=== PATIENT | male | born 1940 | race Caucasian/White ===

== ENCOUNTER → 2019-01-16 | Outpatient (CLI) | payer MEDICARE, BC, OTHER ==
--- NOTE | 2019-01-16 14:31 | KCIC ---
EXAM: MRI left shoulder DATE: 01/16/2019 11:45 AM COMPARISON: None INDICATION: Left shoulder pain, left shoulder injury. TECHNIQUE: Multiplanar, multisequence MRI of the left shoulder was performed without contrast. FINDINGS: Mild AC joint degenerative changes are seen with inferior projecting osteophytes. Subacromial-subdeltoid bursal distention from full-thickness rotator cuff tear described below. There is a full-thickness tear of the anterior fibers of the supraspinatus tendon measuring approximately 1.4 cm in AP dimension with retraction to the level of the acromion. Mild increased signal of the posterior fibers of the supraspinatus tendon as well as the infraspinatus tendon consistent with mild tendinosis. Rotator cuff muscle signal and bulk is normal. No fatty atrophy. Increased signal on of the intra-articular long head biceps tendon consistent with tendinosis. The extra articular long head biceps tendon is severely diminutive with suspected full-thickness tear just proximal to the pectoralis attachment. Small inferior glenohumeral osteophytes. Chondral thinning, particularly superiorly. No fracture or AVN. IMPRESSION: 1. Full-thickness tear of the anterior fibers of the supraspinatus tendon 2. Increased signal within the intra-articular long head biceps tendon consistent with tendinosis. Visualized portion of the extra articular biceps tendon are diminutive with a suspected full-thickness tear just proximal to the pectoralis tendon attachment. 3. AC joint degenerative changes are seen. Electronically signed by: Niko Caro MD (01/16/2019 2:28 PM) [facility]-KCIC2
== END | disposition home or self-care (01) ==
LOC: KCIC MRI 11:04
PROVIDERS: ATTEND Family Medicine
DX: S49.92XA Unspecified injury of left shoulder and upper arm, initial encounter (principal); M75.102 Unspecified rotator cuff tear or rupture of left shoulder, not specified as traumatic; M19.012 Primary osteoarthritis, left shoulder; M25.712 Osteophyte, left shoulder; X58.XXXA Exposure to other specified factors, initial encounter; Y93.89 Activity, other specified; Y92.89 Other specified places as the place of occurrence of the external cause; Y99.8 Other external cause status
CPT/HCPCS: 73221

== ENCOUNTER 2019-09-10 05:00 | Inpatient (IN) | payer MEDICARE, BC, OTHER ==
[~2019-09-10] VITALS: Ht 162.6 cm; Wt 71.7 kg
[2019-09-10] VITALS (21 sets, daily range): BP systolic 102–180; BP diastolic 45–93
--- NOTE | 2019-09-10 05:30 | NUR ---
Patient admitted to room 106 via gurney from [facility] ICU, accompanied by EMSx2. On arrival patient on 100%Non-rebreather and once transferred to bed, O2 saturation 75%--per EMS patient's oxygen saturations maintained >92%. Patient was also tachypneic with RR mid-upper 30's. Patient does complain of shortness of breath with rest and activity and only able to speak in 2-3 word sentences. With rest, patient's saturation only increased to mid 80's without improvement of respiratory rate so patient placed on BiPap with settings of IPap 16, EPap 6, rate 16 and FiO2 60. Patient's saturation did improve to 94% but respiratory rate continued to be 30's. Patient does deny pain. Patient educated on ICU routine, Nursing call light, TV/Bed control, Numeric pain scale, side rail policy, diet (NPO), activity (BR), and POC. Patient verbalized understanding of above. Also discussed possibility of need for intubation/ventilation; patient is agreeable to be intubated if needed. Patient has Cardizem running at 15MG/HR and Amiodarone at 0.5MG/MIN for Afib RVE--tele Afib with rate 90's to 100's. See Admission information and Admission assessment.
--- NOTE | 2019-09-10 06:25 | NUR ---
Called Dr Griffin for admit orders, notified of need for BiPap and settings. Orders received to consult Dr Jacobs after am ABG's drawn, continue all meds from [facility] including Cardizem and Amio, NPO, BR, this am labs (CBC, CMP, Mg, ABG, DIC panel, and Lactic acid), CXR this am, and consult Dr Rivera. See orders.
[2019-09-10] MEDS ORDERED: NAPROXEN 500 MG TABLET PO PRN (06:30)
[2019-09-10] MEDS ORDERED: 0.9 % SODIUM CHLORIDE 10 ML DISP.SYRIN. IV PRN (07:00)
[2019-09-10] MEDS ORDERED: DUTA0.5C PO (07:42)
[2019-09-10] MEDS ORDERED: NAPR-514 PO (07:42)
[2019-09-10 08:07] LABS: BASO % 0 % (0-3); EOS % 0 % (0-3); HEMATOCRIT 33.9 % (39.0-53.0); LYMPH # 1.1 x10^3/uL (1.0-4.8); LYMPH % 6 % (24-48); MEAN CORPUSCULAR HEMOGLOBIN 23 pg (25-35); MEAN CORPUSCULAR HGB CONC 32 g/dL (31-37); MEAN CORPUSCULAR VOLUME 71 fL (79-100); MONO # 1.2 x10^3/uL (0.0-1.1); MONO % 6 % (0-9); NEUT # 16.8 x10^3/uL (1.8-7.7); NEUT % 88 % (31-73); PLATELET COUNT 252 x10^3/uL (140-400); RED BLOOD COUNT 4.79 x10^6/uL (4.30-5.70); RED CELL DISTRIBUTION WIDTH 15.5 % (11.5-14.5); WHITE BLOOD COUNT 19.1 x10^3/uL (4.0-11.0)
[2019-09-10 08:17] LABS: PROTHROMBIN TIME PATIENT 19.1 SEC (11.7-14.0)
--- NOTE | 2019-09-10 08:23 | RAD ---
PORTABLE CHEST 1V History: Increased respiratory failure Comparison: Exam earlier the same day Findings: Single view of the chest is submitted. Pericardial cardiac silhouette is again enlarged. There is again tortuous thoracic aorta. There is again suspected small right pleural effusion. There is fairly diffuse interstitial opacity bilaterally as well as degree of hazy airspace opacity fairly similar on the left, slightly decreased on the right. No pneumothorax is identified. Impression: 1. There is again diffuse interstitial and hazy airspace opacity bilaterally, slightly decreased of the mid right hemithorax, more similar on the left. There is again small right pleural effusion. 2. There is again enlargement of the pericardial cardiac silhouette. Electronically signed by: Jl Santizo MD (09/10/2019 8:20 AM) [facility]-KCIC1
[2019-09-10 08:34] LABS: D-DIMER 4.43 ug/mlFEU (0.00-0.50)
[2019-09-10] MEDS: methylPREDNISolone SOD SUCC PF 40 MG/ML VIAL. IV SCH ×3 (08:38→21:32)
[2019-09-10] MEDS: LACTOBACILLUS RHAMNOSUS GG 1 CAPSULE. PO SCH ×2 (08:38→20:41)
[2019-09-10 08:45] LABS: ALBUMIN 3.1 g/dL (3.4-5.0); ALBUMIN/GLOBULIN RATIO 0.7 (1.0-1.7); CALCIUM 8.6 mg/dL (8.5-10.1); CREATININE 1.3 mg/dL (0.7-1.3); GFR 53.4; POTASSIUM 3.9 mmol/L (3.5-5.1); TOTAL BILIRUBIN 1.4 mg/dL (0.2-1.0); TOTAL PROTEIN 7.8 g/dL (6.4-8.2)
--- NOTE | 2019-09-10 08:57 | NUR ---
Patient breathing 38-40 per minute over the bipap which is set at 16. Patient states that he is breathing so fast trying to keep up with the bipap. Explained that the bipap is only breathing 16 times a minute for him and instructed him to try to slow his breathing and allow the bipap to do the work. Asked patient if he would be acceptable of a breathing tube being used to help him breath if his arterial blood gases are abnormal and patient agrees to this if needed. Patient is diaphoretic, wet cloth applied to forehead.
[2019-09-10] MEDS ORDERED: AZITHROMYCIN 250 MG TABLET. PO SCH (09:00)
[2019-09-10] MEDS: DUTASTERIDE 0.5 MG CAPSULE PO SCH (09:00)
[2019-09-10 09:10] LABS: BASE EXCESS ABG -4 mmol/L (-3-3); HCO3 ABG 19 mmol/L (21-28); PCO2 ABG 28 mmHg (35-46); PO2 ABG 65 mmHg (65-108); SAT O2 ABG 91 % (92-99)
[2019-09-10 09:11] LABS: FIO2 ABG 60
--- NOTE | 2019-09-10 09:45 | HP ---
ADMIT DATE: 09/10/2019 HISTORY OF PRESENT ILLNESS: The patient is a 79-year-old male patient who is Bah[place], who was seen in the Emergency Room of [facility] [place] complaining of palpitations, heart rate was racing. He was investigated in the Emergency Room and apparently was found initially in atrial fibrillation with rapid ventricular response. He was cardioverted twice. Further investigation showed he has leukocytosis and chest x-ray showed that he has what seemed to be right lower lobe pneumonia and was admitted with community-acquired pneumonia as well as atrial fibrillation with rapid ventricular response, was treated with IV fluid as well as ceftriaxone and Zithromax, has had 2 sets of blood cultures as well as sputum culture was sent for culture and sensitivity. He continued to go into episodes of atrial fibrillation with rapid ventricular response and developed marked respiratory distress for which he has had CT angio of the chest, which showed no evidence of pulmonary embolism; however, he has small pleural effusion, right greater than left. He has diffuse hazy infiltrate throughout both lungs, most likely due to pneumonia and/or edema. He was treated with IV Lasix yesterday; however, he continued to be in fibrillation with rapid ventricular response. He was transferred to the ICU, was seen by Dr. Rivera and was started on amiodarone and Cardizem drip. Apparently last night, he developed recurrent episode of hemoptysis and he was desaturating down to mid 80s on even 4 liters by nasal cannula. As he continued to have recurrent episodes of hemoptysis, we held his Lovenox and the patient was placed on a face mask with humidification with an FiO2 of 60%. His blood gases showed that the pH was 7.46, pCO2 of 25, pO2 of 62, bicarbonate of 18 and oxygen saturation was 93% on FiO2 of 80%; and therefore, the patient was transferred to [facility] to continue on BiPAP machine, continue to consult the metal ceiling builder as well as the rebar worker. PAST MEDICAL HISTORY: Significant for rheumatoid arthritis. He has also gout and benign prostatic hypertrophy. PAST SURGICAL HISTORY: Significant for bilateral cataract extraction and appendectomy. ALLERGIES: He has no known drug allergies. MEDICATIONS: He was on following home medications: He was on Avodart 0.5 mg once a day, naproxen 500 mg twice a day. He has also multiple [id number] medications including multivitamin, fish oil and vitamin D. He was transferred to [facility] on amiodarone and Cardizem drip. He was also started on IV antibiotic in the form of ceftriaxone and Zithromax for treatment of community-acquired pneumonia. He was also started on Lovenox 80 mg twice a day as well as methylprednisone 40 mg IV q. 8 hourly. FAMILY HISTORY: He has 2 brothers who are healthy, one older and one younger. One brother at age of 83 because of COPD, has 6 sisters, all younger and all healthy. His father at the age of 90 because of sepsis and mother also giving to his younger brother. SOCIAL HISTORY: He is , has 3 sons, one because of bone cancer. He quit smoking in 1991. He drinks alcohol once a week after he plays golf. Uses CBD for his arthritis, although he said that so far it did not seem to be helpful. REVIEW OF SYSTEMS: The patient denied any blurring of vision. He did have bilateral cataract extraction, but denied any glaucoma or macular degeneration. Denied any earache, tinnitus associated deafness. Denied any nosebleeds, stuffy nose or postnasal drip. Denied any sore throat, sore tongue, toothache, hoarseness of voice or difficulty swallowing. Denied any nausea, vomiting, diarrhea or constipation. Denied any hematemesis, melena or hematochezia. Denied any dysuria, frequency, hematuria. Denied any chest pain. Did complain of shortness of breath, cough with hemoptysis. When he arrived to the [facility], he continued to be extremely tachypneic, on BiPAP machine on FiO2 of 60%, maintaining his oxygen saturation of 93%. PHYSICAL EXAMINATION: VITAL SIGNS: When I examined him, his heart rate was 95 beats per minute, irregularly irregular; blood pressure was 167/83; temperature was 98; respiratory rate was 38 and oxygen saturation was 93% on FiO2 of 60%. HEAD, EYES, EARS, NOSE AND THROAT: Showed normocephalic, atraumatic. NECK: Supple. HEART: Showed normal first and second heart sounds with no murmur. CHEST: Showed central trachea. Equal bilateral expansion, air entry, vesicular sounds with crepitation mostly on the right side. ABDOMEN: Distended, soft, nontender. No guarding or rigidity. No organomegaly. All hernial orifice intact. Bowel sounds normal. NEUROLOGIC: He is awake, alert, responding appropriately. All cranial nerves intact. EXTREMITIES: He moves extremities without difficulty. LABORATORY DATA: On arrival to [facility], continues to have marked leukocytosis with a white cell count of 19,100, hemoglobin 11, hematocrit 33, MCV 71, platelet count 252,000. His chemistry showed a serum sodium 134, potassium 3.9, chloride 99, bicarbonate 22, anion gap of 13, BUN 28, creatinine 1.3, estimated GFR was 53 mL per minute. His glucose was 128, calcium was 8.6. Total bilirubin slightly elevated at 1.4. AST, ALT markedly elevated. Alkaline phosphatase was normal. His total protein was 7.8, albumin was 3.1. His prothrombin time, INR and aPTT were normal. His fibrinogen was high at 699 and D-dimer was 4.43. His chest x-ray again showed that the pericardial cardiac silhouette is again enlarged. There is again tortuous thoracic aorta. There is again suspected small right-sided pleural effusion. There is fairly diffuse interstitial opacity bilaterally as well as degree of hazy airspace opacity fairly similar to the left, slightly decreased on the right, no pneumothorax identified. ASSESSMENT AND PLAN: In summary, this is a 79-year-old male patient who was originally seen in the Emergency Room with palpitation, was found to be in atrial fibrillation with rapid ventricular response. He was converted twice after he was sedated with fentanyl as well as etomidate and the patient was initially converted to sinus rhythm. He was treated for community-acquired pneumonia with IV Rocephin and Zithromax, unfortunately continued to have episodes of atrial fibrillation with rapid ventricular response during which he becomes in very marked respiratory distress. We did a CT angio of the chest yesterday, which showed no evidence of pulmonary emboli. He was treated with IV Lasix and was started on Cardizem drip as well as amiodarone drip. He developed recurrent episode of hemoptysis last night, coughing up large amount of blood, such that we discontinued his Lovenox and he was transferred to [facility] to continue on BiPAP machine, continue to monitor, consult the rebar worker as well as the metal ceiling builder. We will continue with the Cardizem and amiodarone drip. Continue with the IV antibiotic as well as the inhalers and Solu-Medrol. INGRIS FINCH MD DR: JOSIANE/jose JOB#: [id number] / [id number]
[2019-09-10] MEDS: AMIODARONE 450 MG in IV DEXTROSE 5% 250 ML IV PRN (09:52)
[2019-09-10] MEDS ORDERED: BISACODYL 10 MG SUPP.RECT. PR PRN (10:00)
[2019-09-10] MEDS: ALBUTEROL SULFATE 2.5 MG/3 ML NEBU. NEB SCH ×4 (10:03→19:37)
--- NOTE | 2019-09-10 11:00 | NUR ---
Respirations 42, patient diaphoretic. Non-rebreather mask pulse ox 78%.
[2019-09-10 11:10] LABS: % BANDS 13 % (0-9); % LYMPHS 6 % (24-48); % MONOS 3 % (0-10); % SEGS 78 % (35-66); NUCLEATED RBC 6; PLT ESTIMATE ADEQUATE (ADEQUATE)
[2019-09-10 11:11] LABS: MICROCYTOSIS SLIGHT; POIKILOCYTOSIS SLIGHT; POLYCHROMASIA MOD; SPHEROCYTES FEW; TARGET CELLS FEW
[2019-09-10 11:12] LABS: OVALOCYTES FEW; SCHISTOCYTES FEW; TEAR DROP CELLS OCC
[2019-09-10 11:13] LABS: ANISOCYTOSIS MOD
--- NOTE | 2019-09-10 11:33 | NUR ---
Patient back on bipap but still increased respirations (48) and diaphoretic. Lungs coarse crackles throughout. Non-productive cough. Pulse ox currently 89%.
[2019-09-10] MEDS ORDERED: MORPHINE SULFATE 10 MG/ML VIAL. IV ONE (12:00)
[2019-09-10] MEDS ORDERED: cefTRIAXone IV Push 1 GM VIAL. IVP SCH (12:00)
--- NOTE | 2019-09-10 12:16 | NUR ---
SS following for discharge planning. SS reviewed pt chart. Pt is from home with spouse and is currently on the BIPAP. SS will continue to follow for discharge planning.
[2019-09-10] MEDS ORDERED: MORPHINE SULFATE 4 MG/ML VIAL. IV ONE (13:00)
--- NOTE | 2019-09-10 13:19 | PDOC ---
PULMONARY PROGRESS NOTES Vitals Vital Signs Date Time Temp Pulse Resp B/P (MAP) Pulse Ox O2 Delivery O2 Flow Rate FiO2 09/10/19 12:56 36 93 BiPAP/CPAP 09/10/19 11:00 114 154/88 (110) 09/10/19 10:00 15.0 09/10/19 08:00 98.0 98.0 Labs Laboratory Tests Test 09/10/19 08:00 09/10/19 08:50 09/10/19 11:25 White Blood Count 19.1 x10^3/uL (4.0-11.0) Red Blood Count 4.79 x10^6/uL (4.30-5.70) Hemoglobin 11.0 g/dL (13.0-17.5) Hematocrit 33.9 % (39.0-53.0) Mean Corpuscular Volume 71 fL (79-100) Mean Corpuscular Hemoglobin 23 pg (25-35) Mean Corpuscular Hemoglobin Concent 32 g/dL (31-37) Red Cell Distribution Width 15.5 % (11.5-14.5) Platelet Count 252 x10^3/uL (140-400) Neutrophils (%) (Auto) 88 % (31-73) Lymphocytes (%) (Auto) 6 % (24-48) Monocytes (%) (Auto) 6 % (0-9) Eosinophils (%) (Auto) 0 % (0-3) Basophils (%) (Auto) 0 % (0-3) Neutrophils # (Auto) 16.8 x10^3/uL (1.8-7.7) Lymphocytes # (Auto) 1.1 x10^3/uL (1.0-4.8) Monocytes # (Auto) 1.2 x10^3/uL (0.0-1.1) Eosinophils # (Auto) 0.0 x10^3/uL (0.0-0.7) Basophils # (Auto) 0.0 x10^3/uL (0.0-0.2) Segmented Neutrophils % 78 % (35-66) Band Neutrophils % 13 % (0-9) Lymphocytes % 6 % (24-48) Monocytes % 3 % (0-10) Nucleated Red Blood Cells 6 Platelet Estimate Adequate (ADEQUATE) Polychromasia Mod Poikilocytosis Slight Anisocytosis Mod Microcytosis Slight Spherocytes Few Target Cells Few Tear Drop Cells Occ Ovalocytes Few Schistocytes Few Prothrombin Time 19.1 SEC (11.7-14.0) Prothromb Time International Ratio 1.6 (0.8-1.1) Activated Partial Thromboplast Time 37 SEC (24-38) Fibrinogen 699 mg/dL (200-440) D-Dimer (Kathia) 4.43 ug/mlFEU (0.00-0.50) Sodium Level 134 mmol/L (136-145) Potassium Level 3.9 mmol/L (3.5-5.1) Chloride Level 99 mmol/L (98-107) Carbon Dioxide Level 22 mmol/L (21-32) Anion Gap 13 (6-14) Blood Urea Nitrogen 28 mg/dL (8-26) Creatinine 1.3 mg/dL (0.7-1.3) Estimated GFR (Cockcroft-Gault) 53.4 BUN/Creatinine Ratio 22 (6-20) Glucose Level 228 mg/dL (70-99) Lactic Acid Level 4.4 mmol/L (0.4-2.0) 7.8 mmol/L (0.4-2.0) Calcium Level 8.6 mg/dL (8.5-10.1) Total Bilirubin 1.4 mg/dL (0.2-1.0) Aspartate Amino Transf (AST/SGOT) 1296 U/L (15-37) Alanine Aminotransferase (ALT/SGPT) 930 U/L (16-63) Alkaline Phosphatase 92 U/L (46-116) Total Protein 7.8 g/dL (6.4-8.2) Albumin 3.1 g/dL (3.4-5.0) Albumin/Globulin Ratio 0.7 (1.0-1.7) O2 Saturation 91 % (92-99) Arterial Blood pH 7.45 (7.35-7.45) Arterial Blood pCO2 at Patient Temp 28 mmHg (35-46) Arterial Blood pO2 at Patient Temp 65 mmHg (65-108) Arterial Blood HCO3 19 mmol/L (21-28) Arterial Blood Base Excess -4 mmol/L (-3-3) FiO2 60 Laboratory Tests Test 09/10/19 08:00 09/10/19 08:50 09/10/19 11:25 White Blood Count 19.1 x10^3/uL (4.0-11.0) Red Blood Count 4.79 x10^6/uL (4.30-5.70) Hemoglobin 11.0 g/dL (13.0-17.5) Hematocrit 33.9 % (39.0-53.0) Mean Corpuscular Volume 71 fL (79-100) Mean Corpuscular Hemoglobin 23 pg (25-35) Mean Corpuscular Hemoglobin Concent 32 g/dL (31-37) Red Cell Distribution Width 15.5 % (11.5-14.5) Platelet Count 252 x10^3/uL (140-400) Neutrophils (%) (Auto) 88 % (31-73) Lymphocytes (%) (Auto) 6 % (24-48) Monocytes (%) (Auto) 6 % (0-9) Eosinophils (%) (Auto) 0 % (0-3) Basophils (%) (Auto) 0 % (0-3) Neutrophils # (Auto) 16.8 x10^3/uL (1.8-7.7) Lymphocytes # (Auto) 1.1 x10^3/uL (1.0-4.8) Monocytes # (Auto) 1.2 x10^3/uL (0.0-1.1) Eosinophils # (Auto) 0.0 x10^3/uL (0.0-0.7) Basophils # (Auto) 0.0 x10^3/uL (0.0-0.2) Segmented Neutrophils % 78 % (35-66) Band Neutrophils % 13 % (0-9) Lymphocytes % 6 % (24-48) Monocytes % 3 % (0-10) Nucleated Red Blood Cells 6 Platelet Estimate Adequate (ADEQUATE) Polychromasia Mod Poikilocytosis Slight Anisocytosis Mod Microcytosis Slight Spherocytes Few Target Cells Few Tear Drop Cells Occ Ovalocytes Few Schistocytes Few Prothrombin Time 19.1 SEC (11.7-14.0) Prothromb Time International Ratio 1.6 (0.8-1.1) Activated Partial Thromboplast Time 37 SEC (24-38) Fibrinogen 699 mg/dL (200-440) D-Dimer (Kathia) 4.43 ug/mlFEU (0.00-0.50) Sodium Level 134 mmol/L (136-145) Potassium Level 3.9 mmol/L (3.5-5.1) Chloride Level 99 mmol/L (98-107) Carbon Dioxide Level 22 mmol/L (21-32) Anion Gap 13 (6-14) Blood Urea Nitrogen 28 mg/dL (8-26) Creatinine 1.3 mg/dL (0.7-1.3) Estimated GFR (Cockcroft-Gault) 53.4 BUN/Creatinine Ratio 22 (6-20) Glucose Level 228 mg/dL (70-99) Lactic Acid Level 4.4 mmol/L (0.4-2.0) 7.8 mmol/L (0.4-2.0) Calcium Level 8.6 mg/dL (8.5-10.1) Total Bilirubin 1.4 mg/dL (0.2-1.0) Aspartate Amino Transf (AST/SGOT) 1296 U/L (15-37) Alanine Aminotransferase (ALT/SGPT) 930 U/L (16-63) Alkaline Phosphatase 92 U/L (46-116) Total Protein 7.8 g/dL (6.4-8.2) Albumin 3.1 g/dL (3.4-5.0) Albumin/Globulin Ratio 0.7 (1.0-1.7) O2 Saturation 91 % (92-99) Arterial Blood pH 7.45 (7.35-7.45) Arterial Blood pCO2 at Patient Temp 28 mmHg (35-46) Arterial Blood pO2 at Patient Temp 65 mmHg (65-108) Arterial Blood HCO3 19 mmol/L (21-28) Arterial Blood Base Excess -4 mmol/L (-3-3) FiO2 60 Medications Active Scripts Medications Dose Route/Sig Max Daily Dose Days Date Category Naproxen 500 Mg Tablet 1 Tab PO PRN BID PRN 30 09/10/19 Reported Avodart (Dutasteride) 0.5 Mg Capsule 1 Cap PO DAILY 09/10/19 Reported Impression . NOTE DICTATED ACUTE RESP FAILURE SEC TO SEPSIS POSSIBLE PULM EDEMA SEE ORDERS THANKS VIRGEN ROME MD Sep 10, 2019 13:19
[2019-09-10] MEDS ORDERED: VANCOMYCIN 1 GM in IV NORMAL SALINE 250ML 250 ML IV SCH (13:30)
[2019-09-10] MEDS: PIPERACILLIN/TAZOBACTAM 3.375 GM in IV NORMAL SALINE 50ML 50 ML IV SCH ×3 (13:55→23:50)
[2019-09-10] MEDS ORDERED: VANCOMYCIN 1.5 GM in IV NORMAL SALINE 500ML BAG 500 ML IV ONE (14:00)
[2019-09-10] MEDS ORDERED: VANCOMYCIN PER PHARMACY MC PRN (14:00)
[2019-09-10 14:15] LABS: BASE EXCESS ABG -7 mmol/L (-3-3); HCO3 ABG 18 mmol/L (21-28); PCO2 ABG 33 mmHg (35-46); PO2 ABG 74 mmHg (65-108); SAT O2 ABG 92 % (92-99)
[2019-09-10 14:16] LABS: FIO2 ABG 60
--- NOTE | 2019-09-10 14:53 | PDOC ---
YIN HASKINS RECREATIONAL FACILITIES MOTEL MANAGER 09/10/19 1453: CARDIO Progress Notes Date and Time Date of Service 09/10/19 Time of Evaluation 1410 Subjective Subjective: Other (on BiPAP) Vitals Vitals Vital Signs Date Time Temp Pulse Resp B/P (MAP) Pulse Ox O2 Delivery O2 Flow Rate FiO2 09/10/19 14:02 105 30 118/78 (91) 94 BiPAP/CPAP 09/10/19 12:00 97.6 97.6 09/10/19 10:00 15.0 Weight Weight [ ] Input and Output Intake and Output Intake and Output 09/10/19 07:00 Intake Total 0 ml Output Total 0 ml Balance 0 ml Intake Oral 0 ml Output Stool Total 0 ml Laboratory Labs Laboratory Tests Test 09/10/19 08:00 09/10/19 08:50 09/10/19 11:25 09/10/19 14:10 White Blood Count 19.1 x10^3/uL (4.0-11.0) Red Blood Count 4.79 x10^6/uL (4.30-5.70) Hemoglobin 11.0 g/dL (13.0-17.5) Hematocrit 33.9 % (39.0-53.0) Mean Corpuscular Volume 71 fL (79-100) Mean Corpuscular Hemoglobin 23 pg (25-35) Mean Corpuscular Hemoglobin Concent 32 g/dL (31-37) Red Cell Distribution Width 15.5 % (11.5-14.5) Platelet Count 252 x10^3/uL (140-400) Neutrophils (%) (Auto) 88 % (31-73) Lymphocytes (%) (Auto) 6 % (24-48) Monocytes (%) (Auto) 6 % (0-9) Eosinophils (%) (Auto) 0 % (0-3) Basophils (%) (Auto) 0 % (0-3) Neutrophils # (Auto) 16.8 x10^3/uL (1.8-7.7) Lymphocytes # (Auto) 1.1 x10^3/uL (1.0-4.8) Monocytes # (Auto) 1.2 x10^3/uL (0.0-1.1) Eosinophils # (Auto) 0.0 x10^3/uL (0.0-0.7) Basophils # (Auto) 0.0 x10^3/uL (0.0-0.2) Segmented Neutrophils % 78 % (35-66) Band Neutrophils % 13 % (0-9) Lymphocytes % 6 % (24-48) Monocytes % 3 % (0-10) Nucleated Red Blood Cells 6 Platelet Estimate Adequate (ADEQUATE) Polychromasia Mod Poikilocytosis Slight Anisocytosis Mod Microcytosis Slight Spherocytes Few Target Cells Few Tear Drop Cells Occ Ovalocytes Few Schistocytes Few Prothrombin Time 19.1 SEC (11.7-14.0) Prothromb Time International Ratio 1.6 (0.8-1.1) Activated Partial Thromboplast Time 37 SEC (24-38) Fibrinogen 699 mg/dL (200-440) D-Dimer (Kathia) 4.43 ug/mlFEU (0.00-0.50) Sodium Level 134 mmol/L (136-145) Potassium Level 3.9 mmol/L (3.5-5.1) Chloride Level 99 mmol/L (98-107) Carbon Dioxide Level 22 mmol/L (21-32) Anion Gap 13 (6-14) Blood Urea Nitrogen 28 mg/dL (8-26) Creatinine 1.3 mg/dL (0.7-1.3) Estimated GFR (Cockcroft-Gault) 53.4 BUN/Creatinine Ratio 22 (6-20) Glucose Level 228 mg/dL (70-99) Lactic Acid Level 4.4 mmol/L (0.4-2.0) 7.8 mmol/L (0.4-2.0) Calcium Level 8.6 mg/dL (8.5-10.1) Total Bilirubin 1.4 mg/dL (0.2-1.0) Aspartate Amino Transf (AST/SGOT) 1296 U/L (15-37) Alanine Aminotransferase (ALT/SGPT) 930 U/L (16-63) Alkaline Phosphatase 92 U/L (46-116) Total Protein 7.8 g/dL (6.4-8.2) Albumin 3.1 g/dL (3.4-5.0) Albumin/Globulin Ratio 0.7 (1.0-1.7) O2 Saturation 91 % (92-99) 92 % (92-99) Arterial Blood pH 7.45 (7.35-7.45) 7.35 (7.35-7.45) Arterial Blood pCO2 at Patient Temp 28 mmHg (35-46) 33 mmHg (35-46) Arterial Blood pO2 at Patient Temp 65 mmHg (65-108) 74 mmHg (65-108) Arterial Blood HCO3 19 mmol/L (21-28) 18 mmol/L (21-28) Arterial Blood Base Excess -4 mmol/L (-3-3) -7 mmol/L (-3-3) FiO2 60 60 Physical Exam HEENT: Neck Supple W Full Motion Chest: Symmetric LUNGS: Other (rhonchi throughout ) Heart: irregularly irregular (AFIB rate near 100-115) Abdomen: Other (soft ) Extremities: Other (2+ right hand and 1+ bilateral LE edema ) Neurology: other (unable to assess, somnolent following Ativan, morphine ) Assessment Assessment 1. Acute respiratory failure, multifactorial given CAP, possible ILD, acute CHF and AFIB with RVR. Requiring continuous BiPAP 2. AFIB with RVR in setting of PNA, sepsis. rate overall controlled with Amiodarone and Cardizem now that respiratory rate more controlled following Ativan, morphine. Lovenox discontinued due to hemoptysis. 3. Leukocytosis, lactic acidosis, sepsis 4. Acute diastolic CHF; bedside limited echo at [facility] with preserved LV systolic function Recommendations Continue Cardizem and Amiodarone gtts for now Ongoing antibiotic therapy Supportive care May need intubation ALEX SMILEY MD 09/11/19 0908: CARDIO Progress Notes Plan Plan Late entry for 09/10/2019 Pt. seen and examined. Agree with above COST ACCOUNTING ANALYST note. Supportive care for now. Lower suspicion for primary cardiac process. Gentle diuresis as tolerated in the setting of sepsis and diastolic HF. YIN HASKINS APRN Sep 10, 2019 14:53 ALEX SMILEY MD Sep 11, 2019 09:08
--- NOTE | 2019-09-10 15:00 | CONS ---
DATE OF CONSULTATION: 09/10/2019 ATTENDING PHYSICIAN: Michael Griffin MD CONSULTING PHYSICIAN: Virgen Rome MD REASON FOR CONSULTATION: The patient is seen in pulmonary consultation at the request of Dr. Griffin for respiratory distress, abnormal chest x-ray, arterial blood gas revealing a pH of 7.45, PaCO2 of 28, pO2 of 65, bicarbonate of 19. HISTORY OF PRESENT ILLNESS: The patient is a 79-year-old that was in his usual state of health until he came back from vacation. According to his , he has never been hospitalized for major pathology. They visited some families. They came back and he had a cold. He subsequently deteriorated to started having some increasing shortness of breath. He was brought to the Emergency Room complaining of palpitation and heart racing was investigated found to have AFib with rapid ventricular response. He was cardioverted x 2. He also had leukocytosis. Chest x-ray revealed bilateral infiltrate, right greater than left. He was treated for community-acquired pneumonia. He was also treated with ceftriaxone and Zithromax. I personally reviewed the CT chest dated 09/08/[address] [facility]. There were several findings including diffuse AC infiltrates throughout both lungs, right greater than left. To me it gives me the impression that he may have some underlying interstitial lung disease, possible pulmonary fibrosis, the small bilateral effusions, right greater than left. There was no evidence of pulmonary emboli. The patient is currently on BiPAP. His respiratory rate is markedly elevated. I discontinue the BiPAP, his saturation decreased. He was unable to provide any significant history. He was given IV morphine and some IV Ativan with no significant help in with minimal decrease in respiratory rate. PAST MEDICAL HISTORY: Remarkable for rheumatoid arthritis. According to his , it only affects his hands. He also has a history of gout and BPH. He quit tobacco 30 years ago. He has never had any heart condition. PAST SURGICAL HISTORY: Bilateral cataract extraction. ALLERGIES: No known drug allergies. CURRENT MEDICATIONS: List was reviewed. MEDICATIONS: List from home included Naprosyn and Avodart. REVIEW OF SYSTEMS: Unobtainable secondary to the patient's condition. PHYSICAL EXAMINATION: VITAL SIGNS: Temperature is 98.0, blood pressure is 154/88. HEENT: Eyes, the sclerae were nonicteric. NECK: Jugular venous distention was not elevated. No lymphadenopathy. CHEST: Full expansion. LUNGS: Bilateral rhonchi, no wheezes. CARDIOVASCULAR: Regular rate and rhythm with S1, S2, no S3. ABDOMEN: Soft, nontender, nondistended. EXTREMITIES: No clubbing, cyanosis or edema. NEUROLOGIC: The patient was encephalopathic on BiPAP. LABORATORY DATA: White count was elevated. Hemoglobin and hematocrit were noted, platelet count was 252. Arterial blood gases indicated above. INR was 1.6. D-dimer was elevated. Electrolytes were noted. BUN and creatinine were noted. His lactic acid level cheyanne from 4.4 to 7.8. IMPRESSION: 1. Acute hypoxemic respiratory failure. 2. Sepsis syndrome. 3. Abnormal CT chest revealing bilateral pulmonary infiltrates. 4. Pneumonia, suspect gram-negative, gram-positive. 5. Possible acute pulmonary edema. 6. Possible interstitial lung disease/pulmonary fibrosis. 7. History of rheumatoid arthritis. 8. Atrial fibrillation with rapid ventricular response. PLAN: 1. We will continue support with BiPAP and provide sedation. 2. Elevated lactic acid level was related to sepsis and increased work of breathing. We will repeat. 3. IV fluids. 4. Consult Cardiology already performed. 5. Consult ID. 6. Continue empiric antibiotics, make changes depending on the input from the Infectious Disease service. 7. Monitor respiratory status closely, the patient may require intubation. The above was discussed with the at the bedside. Total critical care time of 60 minutes including reviewing the data chest x-ray formulating a plan and discussing the case with Dr. Griffin and at the bedside. VIRGEN ROME MD DR: DUONG/jose JOB#: [id number] / [id number]
[2019-09-10] MEDS ORDERED: FUROSEMIDE 20 MG/2 ML VIAL. IVP ONE (15:45)
[2019-09-10] MEDS ORDERED: FUROSEMIDE 40 MG/4 ML VIAL. IVP ONE (15:45)
[2019-09-10] MEDS ORDERED: LIDOCAINE 4% KIT 4 ML SOLUTION. TP ONE (16:00)
--- NOTE | 2019-09-10 16:55 | NUR ---
Pharmacy Vancomycin Dosing Note S:Consulted to monitor and dose vancomycin started 09/10/19. O:PAULINA YU is a 79 year old M with Sepsis . Height: 5 feet, 4 inches Weight: 73.690719 kg [place] Body Weight: 59.20 Adjusted Body Weight: 64.72 Dosing Weight: Actual Other Antibiotics: ZOSYN 09/10 - LABS: Last BUN: 28 Last Creatinine: 1.3 Creatinine Clearance: 48 mL/min Last WBC: 19.1 Last Procalcitonin: - Tmax (past 24 hours): 98.1 Microbiology: NONE I/O: - Drug Levels: Last level: on at Last dose given 09/10/19 at 1630 Vancomycin Dosing: Loading Dose: 1500 mg x1 Dosing Weight: Actual Target Trough: 15-20 A: Based on: WEIGHT, CRCL~48, P: 1. Initiate Vancomycin 1000 mg IV q24h after 1500 mg loading dose 2. Follow up Trough level on 09/12/19 at 1600 3. Pharmacy will continue to monitor, follow and adjust therapy as needed. DEBORAH LIMA Bailey, 09/10/19 [id number]
[2019-09-10] MEDS: dilTIAZem INJ 125 MG in IV DEXTROSE 5% 100ML 100 ML IV PRN (20:58)
[2019-09-10] MEDS: MORPHINE SULFATE 4 MG/ML VIAL. IV PRN (21:22)
--- NOTE | 2019-09-10 21:30 | NUR ---
Patient became very restless around 2100. Patient respiration rate increased into the 50s and saturation dropped to the 80s. Patient was calmed after being re-oriented to his surroundings. Respiration rate remained in 40s. This RN called Dr. Jacobs and received order to 4mg morphine Q2 PRN. This RN administered does of morphine, patient returned to RR of 20s and saturation in low 90s. Will continue to monitor this patient and give this PRN dose and indicated.
[2019-09-11] VITALS (40 sets, daily range): BP systolic 66–125; BP diastolic 42–75
[2019-09-11] MEDS: AMIODARONE 450 MG in IV DEXTROSE 5% 250 ML IV PRN (02:33)
[2019-09-11] MEDS: MORPHINE SULFATE 4 MG/ML VIAL. IV PRN ×2 (04:33→20:31)
[2019-09-11] MEDS: dilTIAZem INJ 125 MG in IV DEXTROSE 5% 100ML 100 ML IV PRN ×2 (05:20→05:40)
[2019-09-11] MEDS: PIPERACILLIN/TAZOBACTAM 3.375 GM in IV NORMAL SALINE 50ML 50 ML IV SCH ×3 (05:39→21:35)
[2019-09-11] MEDS: methylPREDNISolone SOD SUCC PF 40 MG/ML VIAL. IV SCH ×3 (05:39→21:35)
[2019-09-11 06:40] LABS: ALBUMIN 3.2 g/dL (3.4-5.0); ALBUMIN/GLOBULIN RATIO 0.8 (1.0-1.7); CALCIUM 8.7 mg/dL (8.5-10.1); CREATININE 3.1 mg/dL (0.7-1.3); GFR 19.6; TOTAL BILIRUBIN 2.4 mg/dL (0.2-1.0); TOTAL PROTEIN 7.2 g/dL (6.4-8.2)
[2019-09-11 06:55] LABS: POTASSIUM 5.4 mmol/L (3.5-5.1)
[2019-09-11 07:12] LABS: HEMATOCRIT 34.8 % (39.0-53.0); HEMOGLOBIN 10.8 g/dL (13.0-17.5); RED BLOOD COUNT 4.79 x10^6/uL (4.30-5.70); RED CELL DISTRIBUTION WIDTH 15.9 % (11.5-14.5); WHITE BLOOD COUNT 32.3 x10^3/uL (4.0-11.0)
[2019-09-11] MEDS: ALBUTEROL SULFATE 2.5 MG/3 ML NEBU. NEB SCH ×4 (07:37→19:45)
[2019-09-11 07:53] LABS: BASE EXCESS ABG -14 mmol/L (-3-3); HCO3 ABG 12 mmol/L (21-28); PCO2 ABG 28 mmHg (35-46); PO2 ABG 82 mmHg (65-108); SAT O2 ABG 93 % (92-99)
--- NOTE | 2019-09-11 08:05 | PDOC ---
Infectious Disease Note Vital Sign Vital Signs Vital Signs Date Time Temp Pulse Resp B/P (MAP) Pulse Ox O2 Delivery O2 Flow Rate FiO2 09/11/19 07:37 93 BiPAP/CPAP 09/11/19 06:00 87 28 102/63 (76) 09/11/19 04:03 97.0 97.0 09/11/19 04:00 15.0 Labs Lab Laboratory Tests Test 09/10/19 08:50 09/10/19 11:25 09/10/19 14:10 09/11/19 05:15 O2 Saturation 91 % (92-99) 92 % (92-99) Arterial Blood pH 7.45 (7.35-7.45) 7.35 (7.35-7.45) Arterial Blood pCO2 at Patient Temp 28 mmHg (35-46) 33 mmHg (35-46) Arterial Blood pO2 at Patient Temp 65 mmHg (65-108) 74 mmHg (65-108) Arterial Blood HCO3 19 mmol/L (21-28) 18 mmol/L (21-28) Arterial Blood Base Excess -4 mmol/L (-3-3) -7 mmol/L (-3-3) FiO2 60 60 Lactic Acid Level 7.8 mmol/L (0.4-2.0) Sodium Level 136 mmol/L (136-145) Potassium Level 5.4 mmol/L (3.5-5.1) Chloride Level 98 mmol/L (98-107) Carbon Dioxide Level 14 mmol/L (21-32) Anion Gap 24 (6-14) Blood Urea Nitrogen 58 mg/dL (8-26) Creatinine 3.1 mg/dL (0.7-1.3) Estimated GFR (Cockcroft-Gault) 19.6 BUN/Creatinine Ratio 19 (6-20) Glucose Level 212 mg/dL (70-99) Calcium Level 8.7 mg/dL (8.5-10.1) Total Bilirubin 2.4 mg/dL (0.2-1.0) Aspartate Amino Transf (AST/SGOT) 2970 U/L (15-37) Alanine Aminotransferase (ALT/SGPT) 2225 U/L (16-63) Alkaline Phosphatase 111 U/L (46-116) Total Protein 7.2 g/dL (6.4-8.2) Albumin 3.2 g/dL (3.4-5.0) Albumin/Globulin Ratio 0.8 (1.0-1.7) Test 09/11/19 07:00 White Blood Count 32.3 x10^3/uL (4.0-11.0) Red Blood Count 4.79 x10^6/uL (4.30-5.70) Hemoglobin 10.8 g/dL (13.0-17.5) Hematocrit 34.8 % (39.0-53.0) Mean Corpuscular Volume 73 fL (79-100) Mean Corpuscular Hemoglobin 23 pg (25-35) Mean Corpuscular Hemoglobin Concent 31 g/dL (31-37) Red Cell Distribution Width 15.9 % (11.5-14.5) Platelet Count 172 x10^3/uL (140-400) Objective Assessment pt seen, consult dictated Plan Plan of Care / VICKI GAN MD Sep 11, 2019 08:05
[2019-09-11] MEDS ORDERED: SUCCINYLCHOLINE 200 MG/10 ML VIAL. ONE ×2 (08:09→10:57)
[2019-09-11] MEDS ORDERED: PROPOFOL 100 ML IV ONE (08:09)
[2019-09-11 08:28] LABS: FIO2 ABG 40
--- NOTE | 2019-09-11 08:40 | RAD ---
EXAM: CHEST 1 VIEW History: Respiratory failure COMPARISON: 09/10/2019 TECHNIQUE: Single portable radiograph of the chest FINDINGS: Mild cardiomegaly. There is diffuse prominent appearing bilateral interstitial lung markings likely diffuse interstitial infiltrates or edema mildly increased since prior exam. IMPRESSION: Diffuse prominent appearing bilateral interstitial lung markings likely diffuse interstitial infiltrates or edema mildly increased since prior exam. Electronically signed by: Patrick Jovel MD (09/11/2019 8:37 AM) [id number]
[2019-09-11] MEDS ORDERED: FUROSEMIDE 40 MG/4 ML VIAL. IVP SCH (09:00)
[2019-09-11] MEDS ORDERED: FLU VAX QS 2019-20 (36MOS+)/PF 0.5 ML SYRINGE. VAX IM ONE (09:00)
[2019-09-11 10:04] LABS: BASE EXCESS ABG -19 mmol/L (-3-3); HCO3 ABG 12 mmol/L (21-28); PCO2 ABG 50 mmHg (35-46); PO2 ABG 74 mmHg (65-108); SAT O2 ABG 82 % (92-99)
[2019-09-11] MEDS ORDERED: PROPOFOL 100 ML IV PRN (10:15)
--- NOTE | 2019-09-11 10:45 | RAD ---
Examination: Single frontal view the chest HISTORY: History of intubation COMPARISON: Same day exam Findings/ impression: The ET tube is identified in the trachea above the level of the clavicles. The feeding tube is seen below the left hemidiaphragm likely within the stomach. The internal jugular line is identified with the tip projecting in the region of the right atrium. Diffuse prominent appearing bilateral interstitial lung markings likely diffuse interstitial infiltrates or edema similar to prior exam. Electronically signed by: Patrick Jovel MD (09/11/2019 10:42 AM) [id number]
[2019-09-11] MEDS ORDERED: SODIUM BICARB ADULT 8.4% 50 MEQ/50 ML DISP.SYRIN. ONE (10:49)
--- NOTE | 2019-09-11 10:49 | RAD ---
Examination: Single frontal view of the abdomen HISTORY: History of NG tube placement COMPARISON: None available Findings/ impression: The feeding tube is seen below the left hemidiaphragm likely within the fundus the stomach. The bowel gas pattern appears unremarkable. Electronically signed by: Patrick Jovel MD (09/11/2019 10:46 AM) [id number]
--- NOTE | 2019-09-11 10:53 | PDOC ---
PULMONARY PROGRESS NOTES Subjective PT ON BIPAP NON RESPONSIVE TO VERBAL STIMULI Vitals Vital Signs Date Time Temp Pulse Resp B/P (MAP) Pulse Ox O2 Delivery O2 Flow Rate FiO2 09/11/19 08:25 91 Ventilator 09/11/19 06:00 87 28 102/63 (76) 09/11/19 04:03 97.0 97.0 09/11/19 04:00 15.0 Lungs: Crackles Cardiovascular: S1, S2 Abdomen: Soft Extremities: Other (EDMA ) Skin: Warm Labs Laboratory Tests Test 09/10/19 08:00 09/10/19 08:50 09/10/19 11:25 09/10/19 14:10 White Blood Count 19.1 x10^3/uL (4.0-11.0) Red Blood Count 4.79 x10^6/uL (4.30-5.70) Hemoglobin 11.0 g/dL (13.0-17.5) Hematocrit 33.9 % (39.0-53.0) Mean Corpuscular Volume 71 fL (79-100) Mean Corpuscular Hemoglobin 23 pg (25-35) Mean Corpuscular Hemoglobin Concent 32 g/dL (31-37) Red Cell Distribution Width 15.5 % (11.5-14.5) Platelet Count 252 x10^3/uL (140-400) Neutrophils (%) (Auto) 88 % (31-73) Lymphocytes (%) (Auto) 6 % (24-48) Monocytes (%) (Auto) 6 % (0-9) Eosinophils (%) (Auto) 0 % (0-3) Basophils (%) (Auto) 0 % (0-3) Neutrophils # (Auto) 16.8 x10^3/uL (1.8-7.7) Lymphocytes # (Auto) 1.1 x10^3/uL (1.0-4.8) Monocytes # (Auto) 1.2 x10^3/uL (0.0-1.1) Eosinophils # (Auto) 0.0 x10^3/uL (0.0-0.7) Basophils # (Auto) 0.0 x10^3/uL (0.0-0.2) Segmented Neutrophils % 78 % (35-66) Band Neutrophils % 13 % (0-9) Lymphocytes % 6 % (24-48) Monocytes % 3 % (0-10) Nucleated Red Blood Cells 6 Platelet Estimate Adequate (ADEQUATE) Polychromasia Mod Poikilocytosis Slight Anisocytosis Mod Microcytosis Slight Spherocytes Few Target Cells Few Tear Drop Cells Occ Ovalocytes Few Schistocytes Few Prothrombin Time 19.1 SEC (11.7-14.0) Prothromb Time International Ratio 1.6 (0.8-1.1) Activated Partial Thromboplast Time 37 SEC (24-38) Fibrinogen 699 mg/dL (200-440) D-Dimer (Kathia) 4.43 ug/mlFEU (0.00-0.50) Sodium Level 134 mmol/L (136-145) Potassium Level 3.9 mmol/L (3.5-5.1) Chloride Level 99 mmol/L (98-107) Carbon Dioxide Level 22 mmol/L (21-32) Anion Gap 13 (6-14) Blood Urea Nitrogen 28 mg/dL (8-26) Creatinine 1.3 mg/dL (0.7-1.3) Estimated GFR (Cockcroft-Gault) 53.4 BUN/Creatinine Ratio 22 (6-20) Glucose Level 228 mg/dL (70-99) Lactic Acid Level 4.4 mmol/L (0.4-2.0) 7.8 mmol/L (0.4-2.0) Calcium Level 8.6 mg/dL (8.5-10.1) Total Bilirubin 1.4 mg/dL (0.2-1.0) Aspartate Amino Transf (AST/SGOT) 1296 U/L (15-37) Alanine Aminotransferase (ALT/SGPT) 930 U/L (16-63) Alkaline Phosphatase 92 U/L (46-116) Total Protein 7.8 g/dL (6.4-8.2) Albumin 3.1 g/dL (3.4-5.0) Albumin/Globulin Ratio 0.7 (1.0-1.7) O2 Saturation 91 % (92-99) 92 % (92-99) Arterial Blood pH 7.45 (7.35-7.45) 7.35 (7.35-7.45) Arterial Blood pCO2 at Patient Temp 28 mmHg (35-46) 33 mmHg (35-46) Arterial Blood pO2 at Patient Temp 65 mmHg (65-108) 74 mmHg (65-108) Arterial Blood HCO3 19 mmol/L (21-28) 18 mmol/L (21-28) Arterial Blood Base Excess -4 mmol/L (-3-3) -7 mmol/L (-3-3) FiO2 60 60 Test 09/11/19 05:15 09/11/19 07:00 09/11/19 08:00 Sodium Level 136 mmol/L (136-145) Potassium Level 5.4 mmol/L (3.5-5.1) Chloride Level 98 mmol/L (98-107) Carbon Dioxide Level 14 mmol/L (21-32) Anion Gap 24 (6-14) Blood Urea Nitrogen 58 mg/dL (8-26) Creatinine 3.1 mg/dL (0.7-1.3) Estimated GFR (Cockcroft-Gault) 19.6 BUN/Creatinine Ratio 19 (6-20) Glucose Level 212 mg/dL (70-99) Calcium Level 8.7 mg/dL (8.5-10.1) Total Bilirubin 2.4 mg/dL (0.2-1.0) Aspartate Amino Transf (AST/SGOT) 2970 U/L (15-37) Alanine Aminotransferase (ALT/SGPT) 2225 U/L (16-63) Alkaline Phosphatase 111 U/L (46-116) Total Protein 7.2 g/dL (6.4-8.2) Albumin 3.2 g/dL (3.4-5.0) Albumin/Globulin Ratio 0.8 (1.0-1.7) White Blood Count 32.3 x10^3/uL (4.0-11.0) Red Blood Count 4.79 x10^6/uL (4.30-5.70) Hemoglobin 10.8 g/dL (13.0-17.5) Hematocrit 34.8 % (39.0-53.0) Mean Corpuscular Volume 73 fL (79-100) Mean Corpuscular Hemoglobin 23 pg (25-35) Mean Corpuscular Hemoglobin Concent 31 g/dL (31-37) Red Cell Distribution Width 15.9 % (11.5-14.5) Platelet Count 172 x10^3/uL (140-400) O2 Saturation 93 % (92-99) Arterial Blood pH 7.25 (7.35-7.45) Arterial Blood pCO2 at Patient Temp 28 mmHg (35-46) Arterial Blood pO2 at Patient Temp 82 mmHg (65-108) Arterial Blood HCO3 12 mmol/L (21-28) Arterial Blood Base Excess -14 mmol/L (-3-3) FiO2 40 Laboratory Tests Test 09/10/19 11:25 09/10/19 14:10 09/11/19 05:15 09/11/19 07:00 Lactic Acid Level 7.8 mmol/L (0.4-2.0) O2 Saturation 92 % (92-99) Arterial Blood pH 7.35 (7.35-7.45) Arterial Blood pCO2 at Patient Temp 33 mmHg (35-46) Arterial Blood pO2 at Patient Temp 74 mmHg (65-108) Arterial Blood HCO3 18 mmol/L (21-28) Arterial Blood Base Excess -7 mmol/L (-3-3) FiO2 60 Sodium Level 136 mmol/L (136-145) Potassium Level 5.4 mmol/L (3.5-5.1) Chloride Level 98 mmol/L (98-107) Carbon Dioxide Level 14 mmol/L (21-32) Anion Gap 24 (6-14) Blood Urea Nitrogen 58 mg/dL (8-26) Creatinine 3.1 mg/dL (0.7-1.3) Estimated GFR (Cockcroft-Gault) 19.6 BUN/Creatinine Ratio 19 (6-20) Glucose Level 212 mg/dL (70-99) Calcium Level 8.7 mg/dL (8.5-10.1) Total Bilirubin 2.4 mg/dL (0.2-1.0) Aspartate Amino Transf (AST/SGOT) 2970 U/L (15-37) Alanine Aminotransferase (ALT/SGPT) 2225 U/L (16-63) Alkaline Phosphatase 111 U/L (46-116) Total Protein 7.2 g/dL (6.4-8.2) Albumin 3.2 g/dL (3.4-5.0) Albumin/Globulin Ratio 0.8 (1.0-1.7) White Blood Count 32.3 x10^3/uL (4.0-11.0) Red Blood Count 4.79 x10^6/uL (4.30-5.70) Hemoglobin 10.8 g/dL (13.0-17.5) Hematocrit 34.8 % (39.0-53.0) Mean Corpuscular Volume 73 fL (79-100) Mean Corpuscular Hemoglobin 23 pg (25-35) Mean Corpuscular Hemoglobin Concent 31 g/dL (31-37) Red Cell Distribution Width 15.9 % (11.5-14.5) Platelet Count 172 x10^3/uL (140-400) Test 09/11/19 08:00 O2 Saturation 93 % (92-99) Arterial Blood pH 7.25 (7.35-7.45) Arterial Blood pCO2 at Patient Temp 28 mmHg (35-46) Arterial Blood pO2 at Patient Temp 82 mmHg (65-108) Arterial Blood HCO3 12 mmol/L (21-28) Arterial Blood Base Excess -14 mmol/L (-3-3) FiO2 40 Medications Active Scripts Medications Dose Route/Sig Max Daily Dose Days Date Category Naproxen 500 Mg Tablet 1 Tab PO PRN BID PRN 30 09/10/19 Reported Avodart (Dutasteride) 0.5 Mg Capsule 1 Cap PO DAILY 09/10/19 Reported Impression . IMPRESSION: 1. Acute hypoxemic respiratory failure. 2. Sepsis syndrome. 3. Abnormal CT chest revealing bilateral pulmonary infiltrates. 4. Pneumonia, suspect gram-negative, gram-positive. 5. Possible acute pulmonary edema. 6. Possible interstitial lung disease/pulmonary fibrosis. 7. History of rheumatoid arthritis. 8. Atrial fibrillation with rapid ventricular response. 9. ACUTE MET ACIDOSIS 10. ACUTE RENAL FAILURE Plan . ABG THIS AM IS WORSE WILL PROCEED WITH INTUBATION D/W DR LEE START IV NAHCO3 EMPIRIC ANTIBX D/W DR GAN CONSULT NEPHRO CCT IN 30 MINUTES/ REVIEWING DATA/XRAYS/FORMULATING A PLAN VIRGEN ROME MD Sep 11, 2019 10:53
[2019-09-11] MEDS ORDERED: SODIUM BICARB ADULT 8.4% 50 MEQ/50 ML DISP.SYRIN. IV ONE (11:15)
--- NOTE | 2019-09-11 11:27 | RAD ---
CHEST AP ONLY, KUB Clinical Indication: Intubation, OG tube placement Comparison: 09/11/2019 AP view of the chest performed at 10:16 AM. Findings: Supine portable frontal view of the chest was obtained. Frontal view of the abdomen was provided. An endotracheal tube terminates 1.7 cm from the lang. Right jugular catheter terminates in right atrium. Enteric tube terminates in the left upper quadrant overlying the stomach. Heart size is enlarged. The pulmonary vasculature is congested. Diffuse interstitial edema and/or infiltrates are present. Bowel gas pattern is unremarkable. No suspicious abdominal calcifications. This patient on L4-5. History of present. IMPRESSION: Endotracheal tube terminates approximately 1.7 cm from the lang. Consider slight retraction if not artery performed. No change in pulmonary aeration. Electronically signed by: Marlo Red MD (09/11/2019 11:24 AM) [facility]
[2019-09-11] MEDS ORDERED: fentaNYL STANDARD PCA 600 MCG/30 ML PCA.SYRING IV ONE (11:28)
[2019-09-11] MEDS: MIDAZOLAM 100mg/100ml NS BAG 100 ML IV PRN (11:30)
--- NOTE | 2019-09-11 11:44 | PDOC2 ---
CONSULT Date of Consult Date of Consult DATE: 09/11/19 TIME: 11:22 Reason for Consult Reason for Consult: PEDRO Identification/Chief Complaint Chief Complaint Unable to obtain Intubated , On MV Source Source: Chart review History of Present Illness Reason for Visit: Hx Obtained from Chart review - 12/30 Pt Intubated /MV The patient is a 79-year-old that was in his usual state of health until he came back from vacation and had some symptoms of cold He subsequently deteriorated to started having some increasing shortness of breath. He was brought to the [facility] complaining of palpitation and heart racing was investigated found to have AFib with rapid ventricular response. He was cardioverted x 2. He also had leukocytosis. Chest x-ray revealed bilateral infiltrate, right greater than left. He was treated for community-acquired pneumonia. He was also treated with ceftriaxone and Zithromax. He continued to have recurrent episodes of hemoptysis, Lovenox held , the patient was transferred to [facility] CT angio to r/o PE at [place]'- Per Dr Barrera - diffuse AC infiltrates throughout both lungs, right greater than left, underlying interstitial lung disease, possible pulmonary fibrosis, the small bilateral effusions, right greater than left. There was no evidence of pulmonary emboli. Pt was on BiPAP earlier today but his respiratory rate was markedly elevated and he was intubated .Home med Includes Naproxen. Currently on IV Bicarb, IVF per sepsis protocol, IV Levophed PAST MEDICAL HISTORY: Remarkable for rheumatoid arthritis. According to his , it only affects his hands. He also has a history of gout and BPH. PAST SURGICAL HISTORY: Bilateral cataract extraction. ALLERGIES: No known drug allergies. Past Medical History Rheumatologic: Rheumatoid arthritis Renal/: Benign prostatic enlarg. Past Surgical History Past Surgical History: Cataract Removal Family History Family History He has 2 brothers who are healthy, one older and one younger. One brother at age of 83 because of COPD, has 6 sisters, all younger and all healthy. His father at the age of 90 because of sepsis and mother also giving to his younger brother. Social History Social History SOCIAL HISTORY: He is , has 3 sons, one because of bone cancer. He quit smoking in 1991. He drinks alcohol once a week after he plays golf. Uses CBD for his arthritis, although he said that so far it did not seem to be helpful. Lives: with Family Current Medications Current Medications Current Medications Amiodarone HCl 450 mg/Dextrose 259 ml @ 17 mls/hr CONT PRN IV SEE I/O RECORD Last administered on 09/11/19at 02:33; Start 09/10/19 at 09:00 Diltiazem HCl 125 mg/Dextrose 125 ml @ 0 mls/hr CONT PRN IV SEE I/O RECORD Last administered on 09/11/19at 05:40; Start 09/10/19 at 06:30 Lactobacillus Rhamnosus (Culturelle) 1 cap BID PO Last administered on 09/10/19at 08:38; Start 09/10/19 at 09:00 Ceftriaxone Sodium (Rocephin) 1 gm Q24H IVP Last administered on 09/10/19at 12:55; Start 09/10/19 at 12:00; Stop 09/10/19 at 13:35; Status DC Azithromycin (Zithromax) 250 mg DAILY PO Last administered on 09/10/19at 08:38; Start 09/10/19 at 09:00; Stop 09/10/19 at 13:35; Status DC Dutasteride (Avodart) 0.5 mg DAILY PO ; Start 09/10/19 at 09:00 Naproxen (Naprosyn) 500 mg PRN BID PRN PO MODERATE PAIN 4-6; Start 09/10/19 at 06:30 Albuterol Sulfate (Ventolin Neb Soln) 2.5 mg RTQID NEB Last administered on 09/11/19at 07:37; Start 09/10/19 at 08:00 Methylprednisolone Sodium Succinate (SOLU-Medrol 40MG VIAL) 40 mg Q8HRS IV Last administered on 09/11/19at 05:39; Start 09/10/19 at 08:00 Sodium Chloride (Normal Saline Flush) 10 ml QSHIFT PRN IV AFTER MEDS AND BLOOD DRAWS; Start 09/10/19 at 07:00 Influenza Virus Vaccine Quadrival (Afluria Quad 2019-20 (3yr Up) Syringe) 0.5 ml ONCE ONCE VAX IM ; Start 09/11/19 at 09:00; Stop 09/11/19 at 09:01; Status DC Bisacodyl (Dulcolax Supp) 10 mg PRN DAILY PRN [place] CONSTIPATION Last administered on 09/10/19at 10:00; Start 09/10/19 at 10:00 Lorazepam (Ativan Inj) 0.5 mg 1X ONCE IVP Last administered on 09/10/19at 11:10; Start 09/10/19 at 11:15; Stop 09/10/19 at 11:16; Status DC Lorazepam (Ativan Inj) 0.5 mg 1X ONCE IVP Last administered on 09/10/19at 11:48; Start 09/10/19 at 11:45; Stop 09/10/19 at 11:47; Status DC Morphine Sulfate (Morphine Sulfate) 5 mg 1X ONCE IV Last administered on 09/10/19at 11:55; Start 09/10/19 at 12:00; Stop 09/10/19 at 12:01; Status DC Morphine Sulfate (Morphine Sulfate) 4 mg 1X ONCE IV Last administered on 09/10/19at 12:56; Start 09/10/19 at 13:00; Stop 09/10/19 at 13:01; Status DC Vancomycin HCl 1 gm/Sodium Chloride 250 ml @ 250 mls/hr Q12H IV ; Start 09/10/19 at 13:30; Status UNV Piperacillin Sod/ Tazobactam Sod 3.375 gm/Sodium Chloride 50 ml @ 100 mls/hr Q6HRS IV Last administered on 09/11/19at 05:39; Start 09/10/19 at 14:00; Stop 09/11/19 at 08:20; Status DC Vancomycin HCl 1.5 gm/Sodium Chloride 500 ml @ 250 mls/hr 1X ONCE IV Last administered on 09/10/19at 16:39; Start 09/10/19 at 14:00; Stop 09/10/19 at 15:59; Status DC Vancomycin HCl (Vanco Per Pharmacy) 1 each PRN DAILY PRN MC SEE COMMENTS Last administered on 09/10/19at 16:55; Start 09/10/19 at 14:00; Stop 09/11/19 at 07:59; Status DC Furosemide (Lasix) 40 mg DAILY IVP ; Start 09/11/19 at 09:00; Stop 09/10/19 at 15:41; Status DC Furosemide (Lasix) 20 mg 1X ONCE IVP ; Start 09/10/19 at 15:45; Stop 09/10/19 at 15:46; Status DC Furosemide (Lasix) 40 mg 1X ONCE IVP Last administered on 09/10/19at 16:38; Start 09/10/19 at 15:45; Stop 09/10/19 at 15:46; Status DC Vancomycin HCl 1 gm/Sodium Chloride 250 ml @ 250 mls/hr Q24H IV ; Start 09/11/19 at 16:30; Stop 09/11/19 at 07:59; Status DC Vancomycin HCl (Vancomycin Trough Level) 1 each 1X ONCE MC ; Start 09/12/19 at 16:00; Stop 09/11/19 at 08:01; Status DC Morphine Sulfate (Morphine Sulfate) 4 mg PRN Q2HR PRN IV PAIN Last administered on 09/11/19at 04:33; Start 09/10/19 at 21:15 Succinylcholine Chloride (Anectine) 200 mg STK-MED ONCE .ROUTE ; Start 09/11/19 at 08:09; Stop 09/11/19 at 08:09; Status DC Propofol 100 ml @ As Directed STK-MED ONCE IV ; Start 09/11/19 at 08:09; Stop 09/11/19 at 08:09; Status DC Sodium Bicarbonate 100 meq/Dextrose 1,100 ml @ 75 mls/hr [id number] IV ; Start 09/11/19 at 09:00 Piperacillin Sod/ Tazobactam Sod 3.375 gm/Sodium Chloride 50 ml @ 100 mls/hr Q8HRS IV ; Start 09/11/19 at 14:00 Levofloxacin/ Dextrose 100 ml @ 100 mls/hr 1X ONCE IV ; Start 09/11/19 at 08:30; Stop 09/11/19 at 09:29; Status DC Levofloxacin/ Dextrose 50 ml @ 50 mls/hr Q24H IV ; Start 09/12/19 at 09:00 Fentanyl Citrate 30 ml @ 0 mls/hr CONT PRN IV SEE PROTOCOL; Start 09/11/19 at 10:15 Propofol 100 ml @ 0 mls/hr CONT PRN IV SEE PROTOCOL; Start 09/11/19 at 10:15 Midazolam HCl 100 ml @ 0 mls/hr CONT PRN IV SEE PROTOCOL; Start 09/11/19 at 10:15 Norepinephrine Bitartrate 250 ml @ 13.81 mls/ hr CONT PRN IV SEE I/O RECORD; Start 09/11/19 at 10:45 Sodium Bicarbonate (Sodium Bicarb Adult 8.4% Syr) 50 meq STK-MED ONCE .ROUTE ; Start 09/11/19 at 10:49; Stop 09/11/19 at 10:50; Status DC Succinylcholine Chloride (Anectine) 200 mg STK-MED ONCE .ROUTE ; Start 09/11/19 at 10:57; Stop 09/11/19 at 10:57; Status DC Sodium Bicarbonate (Sodium Bicarb Adult 8.4% Syr) 100 meq 1X ONCE IV ; Start 1 at 11:15; Stop 09/11/19 at 11:16; Status DC Active Scripts Active Reported Naproxen 500 Mg Tablet 1 Tab PO PRN BID PRN 30 Days Avodart (Dutasteride) 0.5 Mg Capsule 1 Cap PO DAILY Allergies Allergies: Coded Allergies: No Known Drug Allergies (Unverified , 09/10/19) ROS Review of System Unable to obtain 2/2 to above Physical Exam Physical Exam GEN- Intubated on MV HEENT: Intubated NECK: supple LUNGS: Bilateral rhonchi, decreased at bases CARDIOVASCULAR: Regular rate and rhythm with S1, S2, no S3. ABDOMEN: Soft, nontender, EXTREMITIES: No clubbing, cyanosis or edema. NEUROLOGIC: Intubated on MV - Fisher + Skin No rash Vital Signs Vital Signs Date Time Temp Pulse Resp B/P (MAP) Pulse Ox O2 Delivery O2 Flow Rate FiO2 09/11/19 08:25 91 Ventilator 09/11/19 06:00 87 28 102/63 (76) 09/11/19 04:03 97.0 97.0 09/11/19 04:00 15.0 Assessment & Plan PEDRO- ATN due to Sepsis Some Urinary retention +, UOP of 350 ml Post Fisher placement this am Check Renal US, UA Supportive care, Pressors, IVF , Monitor ,I/O currently no emergent indication for dialysis , Re-eval for CATH LAB NURSE Sepsis - Elevated WBC and Lactic acid ID following Hyperkalemia- Mild Metabolic acidosis- Currently on IV Bicarb Elevated LFT's likely sec to sepsis Ac Hypoxic Resp failure- Intubated /MV Abnormal CT chest revealing bilateral pulmonary infiltrates. Pneumonia Possible interstitial lung disease/pulmonary fibrosis. History of rheumatoid arthritis. Atrial fibrillation with rapid ventricular response. Cardioverted Discussed with RN Labs Labs Laboratory Tests Test 09/10/19 08:00 09/10/19 08:50 09/10/19 11:25 09/10/19 14:10 White Blood Count 19.1 x10^3/uL (4.0-11.0) Red Blood Count 4.79 x10^6/uL (4.30-5.70) Hemoglobin 11.0 g/dL (13.0-17.5) Hematocrit 33.9 % (39.0-53.0) Mean Corpuscular Volume 71 fL (79-100) Mean Corpuscular Hemoglobin 23 pg (25-35) Mean Corpuscular Hemoglobin Concent 32 g/dL (31-37) Red Cell Distribution Width 15.5 % (11.5-14.5) Platelet Count 252 x10^3/uL (140-400) Neutrophils (%) (Auto) 88 % (31-73) Lymphocytes (%) (Auto) 6 % (24-48) Monocytes (%) (Auto) 6 % (0-9) Eosinophils (%) (Auto) 0 % (0-3) Basophils (%) (Auto) 0 % (0-3) Neutrophils # (Auto) 16.8 x10^3/uL (1.8-7.7) Lymphocytes # (Auto) 1.1 x10^3/uL (1.0-4.8) Monocytes # (Auto) 1.2 x10^3/uL (0.0-1.1) Eosinophils # (Auto) 0.0 x10^3/uL (0.0-0.7) Basophils # (Auto) 0.0 x10^3/uL (0.0-0.2) Segmented Neutrophils % 78 % (35-66) Band Neutrophils % 13 % (0-9) Lymphocytes % 6 % (24-48) Monocytes % 3 % (0-10) Nucleated Red Blood Cells 6 Platelet Estimate Adequate (ADEQUATE) Polychromasia Mod Poikilocytosis Slight Anisocytosis Mod Microcytosis Slight Spherocytes Few Target Cells Few Tear Drop Cells Occ Ovalocytes Few Schistocytes Few Prothrombin Time 19.1 SEC (11.7-14.0) Prothromb Time International Ratio 1.6 (0.8-1.1) Activated Partial Thromboplast Time 37 SEC (24-38) Fibrinogen 699 mg/dL (200-440) D-Dimer (Kathia) 4.43 ug/mlFEU (0.00-0.50) Sodium Level 134 mmol/L (136-145) Potassium Level 3.9 mmol/L (3.5-5.1) Chloride Level 99 mmol/L (98-107) Carbon Dioxide Level 22 mmol/L (21-32) Anion Gap 13 (6-14) Blood Urea Nitrogen 28 mg/dL (8-26) Creatinine 1.3 mg/dL (0.7-1.3) Estimated GFR (Cockcroft-Gault) 53.4 BUN/Creatinine Ratio 22 (6-20) Glucose Level 228 mg/dL (70-99) Lactic Acid Level 4.4 mmol/L (0.4-2.0) 7.8 mmol/L (0.4-2.0) Calcium Level 8.6 mg/dL (8.5-10.1) Total Bilirubin 1.4 mg/dL (0.2-1.0) Aspartate Amino Transf (AST/SGOT) 1296 U/L (15-37) Alanine Aminotransferase (ALT/SGPT) 930 U/L (16-63) Alkaline Phosphatase 92 U/L (46-116) Total Protein 7.8 g/dL (6.4-8.2) Albumin 3.1 g/dL (3.4-5.0) Albumin/Globulin Ratio 0.7 (1.0-1.7) O2 Saturation 91 % (92-99) 92 % (92-99) Arterial Blood pH 7.45 (7.35-7.45) 7.35 (7.35-7.45) Arterial Blood pCO2 at Patient Temp 28 mmHg (35-46) 33 mmHg (35-46) Arterial Blood pO2 at Patient Temp 65 mmHg (65-108) 74 mmHg (65-108) Arterial Blood HCO3 19 mmol/L (21-28) 18 mmol/L (21-28) Arterial Blood Base Excess -4 mmol/L (-3-3) -7 mmol/L (-3-3) FiO2 60 60 Test 09/11/19 05:15 09/11/19 07:00 09/11/19 08:00 Sodium Level 136 mmol/L (136-145) Potassium Level 5.4 mmol/L (3.5-5.1) Chloride Level 98 mmol/L (98-107) Carbon Dioxide Level 14 mmol/L (21-32) Anion Gap 24 (6-14) Blood Urea Nitrogen 58 mg/dL (8-26) Creatinine 3.1 mg/dL (0.7-1.3) Estimated GFR (Cockcroft-Gault) 19.6 BUN/Creatinine Ratio 19 (6-20) Glucose Level 212 mg/dL (70-99) Calcium Level 8.7 mg/dL (8.5-10.1) Total Bilirubin 2.4 mg/dL (0.2-1.0) Aspartate Amino Transf (AST/SGOT) 2970 U/L (15-37) Alanine Aminotransferase (ALT/SGPT) 2225 U/L (16-63) Alkaline Phosphatase 111 U/L (46-116) Total Protein 7.2 g/dL (6.4-8.2) Albumin 3.2 g/dL (3.4-5.0) Albumin/Globulin Ratio 0.8 (1.0-1.7) White Blood Count 32.3 x10^3/uL (4.0-11.0) Red Blood Count 4.79 x10^6/uL (4.30-5.70) Hemoglobin 10.8 g/dL (13.0-17.5) Hematocrit 34.8 % (39.0-53.0) Mean Corpuscular Volume 73 fL (79-100) Mean Corpuscular Hemoglobin 23 pg (25-35) Mean Corpuscular Hemoglobin Concent 31 g/dL (31-37) Red Cell Distribution Width 15.9 % (11.5-14.5) Platelet Count 172 x10^3/uL (140-400) O2 Saturation 93 % (92-99) Arterial Blood pH 7.25 (7.35-7.45) Arterial Blood pCO2 at Patient Temp 28 mmHg (35-46) Arterial Blood pO2 at Patient Temp 82 mmHg (65-108) Arterial Blood HCO3 12 mmol/L (21-28) Arterial Blood Base Excess -14 mmol/L (-3-3) FiO2 40 Laboratory Tests Test 09/10/19 11:25 09/10/19 14:10 09/11/19 05:15 09/11/19 07:00 Lactic Acid Level 7.8 mmol/L (0.4-2.0) O2 Saturation 92 % (92-99) Arterial Blood pH 7.35 (7.35-7.45) Arterial Blood pCO2 at Patient Temp 33 mmHg (35-46) Arterial Blood pO2 at Patient Temp 74 mmHg (65-108) Arterial Blood HCO3 18 mmol/L (21-28) Arterial Blood Base Excess -7 mmol/L (-3-3) FiO2 60 Sodium Level 136 mmol/L (136-145) Potassium Level 5.4 mmol/L (3.5-5.1) Chloride Level 98 mmol/L (98-107) Carbon Dioxide Level 14 mmol/L (21-32) Anion Gap 24 (6-14) Blood Urea Nitrogen 58 mg/dL (8-26) Creatinine 3.1 mg/dL (0.7-1.3) Estimated GFR (Cockcroft-Gault) 19.6 BUN/Creatinine Ratio 19 (6-20) Glucose Level 212 mg/dL (70-99) Calcium Level 8.7 mg/dL (8.5-10.1) Total Bilirubin 2.4 mg/dL (0.2-1.0) Aspartate Amino Transf (AST/SGOT) 2970 U/L (15-37) Alanine Aminotransferase (ALT/SGPT) 2225 U/L (16-63) Alkaline Phosphatase 111 U/L (46-116) Total Protein 7.2 g/dL (6.4-8.2) Albumin 3.2 g/dL (3.4-5.0) Albumin/Globulin Ratio 0.8 (1.0-1.7) White Blood Count 32.3 x10^3/uL (4.0-11.0) Red Blood Count 4.79 x10^6/uL (4.30-5.70) Hemoglobin 10.8 g/dL (13.0-17.5) Hematocrit 34.8 % (39.0-53.0) Mean Corpuscular Volume 73 fL (79-100) Mean Corpuscular Hemoglobin 23 pg (25-35) Mean Corpuscular Hemoglobin Concent 31 g/dL (31-37) Red Cell Distribution Width 15.9 % (11.5-14.5) Platelet Count 172 x10^3/uL (140-400) Test 10/15/19 08:00 O2 Saturation 93 % (92-99) Arterial Blood pH 7.25 (7.35-7.45) Arterial Blood pCO2 at Patient Temp 28 mmHg (35-46) Arterial Blood pO2 at Patient Temp 82 mmHg (65-108) Arterial Blood HCO3 12 mmol/L (21-28) Arterial Blood Base Excess -14 mmol/L (-3-3) FiO2 40 Review All relevant outside records, renal labs, imaging studies, telemetry/EKG's were reviewed. Images Images The ET tube is identified in the trachea above the level of the clavicles. The feeding tube is seen below the left hemidiaphragm likely within the stomach. The internal jugular line is identified with the tip projecting in the region of the right atrium. Diffuse prominent appearing bilateral interstitial lung markings likely diffuse interstitial infiltrates or edema similar to prior exam. JAMEL LOPEZ MD Sep 11, 2019 11:44
--- NOTE | 2019-09-11 11:59 | PDOC ---
YIN HASKINS PROGRAM MGR 09/11/19 1159: CARDIO Progress Notes Date and Time Date of Service 09/11/19 Time of Evaluation 1210 Subjective Subjective: Other (sedated ) Vitals Vitals Vital Signs Date Time Temp Pulse Resp B/P (MAP) Pulse Ox O2 Delivery O2 Flow Rate FiO2 09/11/19 11:26 30 Ventilator 09/11/19 08:25 91 09/11/19 06:00 87 102/63 (76) 09/11/19 04:03 97.0 97.0 09/11/19 04:00 15.0 Weight Weight [ ] Input and Output Intake and Output Intake and Output 09/11/19 07:00 Intake Total 462 ml Output Total 350 ml Balance 112 ml Intake Oral 0 ml IV Total 462 ml Output Urine Total 350 ml Laboratory Labs Laboratory Tests Test 09/10/19 14:10 09/11/19 05:15 09/11/19 07:00 09/11/19 08:00 O2 Saturation 92 % (92-99) 93 % (92-99) Arterial Blood pH 7.35 (7.35-7.45) 7.25 (7.35-7.45) Arterial Blood pCO2 at Patient Temp 33 mmHg (35-46) 28 mmHg (35-46) Arterial Blood pO2 at Patient Temp 74 mmHg (65-108) 82 mmHg (65-108) Arterial Blood HCO3 18 mmol/L (21-28) 12 mmol/L (21-28) Arterial Blood Base Excess -7 mmol/L (-3-3) -14 mmol/L (-3-3) FiO2 60 40 Sodium Level 136 mmol/L (136-145) Potassium Level 5.4 mmol/L (3.5-5.1) Chloride Level 98 mmol/L (98-107) Carbon Dioxide Level 14 mmol/L (21-32) Anion Gap 24 (6-14) Blood Urea Nitrogen 58 mg/dL (8-26) Creatinine 3.1 mg/dL (0.7-1.3) Estimated GFR (Cockcroft-Gault) 19.6 BUN/Creatinine Ratio 19 (6-20) Glucose Level 212 mg/dL (70-99) Calcium Level 8.7 mg/dL (8.5-10.1) Total Bilirubin 2.4 mg/dL (0.2-1.0) Aspartate Amino Transf (AST/SGOT) 2970 U/L (15-37) Alanine Aminotransferase (ALT/SGPT) 2225 U/L (16-63) Alkaline Phosphatase 111 U/L (46-116) Total Protein 7.2 g/dL (6.4-8.2) Albumin 3.2 g/dL (3.4-5.0) Albumin/Globulin Ratio 0.8 (1.0-1.7) White Blood Count 32.3 x10^3/uL (4.0-11.0) Red Blood Count 4.79 x10^6/uL (4.30-5.70) Hemoglobin 10.8 g/dL (13.0-17.5) Hematocrit 34.8 % (39.0-53.0) Mean Corpuscular Volume 73 fL (79-100) Mean Corpuscular Hemoglobin 23 pg (25-35) Mean Corpuscular Hemoglobin Concent 31 g/dL (31-37) Red Cell Distribution Width 15.9 % (11.5-14.5) Platelet Count 172 x10^3/uL (140-400) Physical Exam HEENT: Neck Supple W Full Motion Chest: Symmetric LUNGS: Other (mechanical vent ) Heart: irregularly irregular (AFIB rate near 100-115) Abdomen: Other (soft ) Extremities: Other (2+ right hand and 1+ bilateral LE edema ) Neurology: other (unable to assess, somnolent following Ativan, morphine ) Assessment Assessment 1. Worsening acute respiratory failure, multifactorial given CAP, possible ILD, acute CHF. S/p intubation 2. AFIB with RVR in setting of PNA, sepsis. rate overall controlled on Amiodarone. Cardizem was discontinued this morning due to hypotension. 3. Leukocytosis, lactic acidosis, sepsis. BC negative from [facility]. Hypotensive requiring pressor support with Levophed and vasopressin 4. Acute diastolic CHF; bedside limited echo at [facility] with preserved LV systolic function 5. Elevated D-dimer. CTA at [facility] negative for PE 6. PEDRO, Hyperkalemia 7. Transaminitis Recommendations Critically ill Discontinue Amiodarone with severe transaminitis Pressor support as warranted Dig IV PRN, limit use with PEDRO Ongoing antibiotic therapy Supportive care ALEX SMILEY MD 09/12/19 0757: CARDIO Progress Notes Plan Plan Late entry for 09/11/2019 Pt. seen and examined. Agree with above [employer]ING [employer]ENT note. No acute cardiac issues. Continue aggressive abx and resuscitation Thanks. YIN HASKINS APRN Sep 11, 2019 11:59 ALEX SMILEY MD Sep 12, 2019 07:57
[2019-09-11 12:04] LABS: FIO2 ABG 100
[2019-09-11] MEDS: IV NORMAL SALINE 1000ML BAG 1,000 ML IV SCH ×2 (12:20→12:28)
[2019-09-11] MEDS: LACTOBACILLUS RHAMNOSUS GG 1 CAPSULE. PO SCH ×2 (12:23→21:16)
[2019-09-11] MEDS: DUTASTERIDE 0.5 MG CAPSULE PO SCH (12:23)
[2019-09-11] MEDS: SODIUM BICARBONATE VIAL 100 MEQ in IV DEXTROSE 5% 1,000 ML IV SCH (12:23)
[2019-09-11 14:18] LABS: BASE EXCESS ABG -15 mmol/L (-3-3); HCO3 ABG 13 mmol/L (21-28); PCO2 ABG 41 mmHg (35-46); PO2 ABG 72 mmHg (65-108); SAT O2 ABG 87 % (92-99)
[2019-09-11 14:25] LABS: FIO2 ABG 100
[2019-09-11] MEDS ORDERED: LIDOCAINE WITH 8.4% SOD BICARB 3 ML DISP.SYRIN. ONE (15:23)
[2019-09-11] MEDS: NOREPINEPHRIN 8MG/250ML PREMIX 250 ML IV PRN ×2 (16:26→20:32)
[2019-09-11] MEDS: VASOPRESSIN 40 UNIT in IV DEXTROSE 5% 100ML 100 ML IV PRN (16:27)
[2019-09-11] MEDS ORDERED: VANCOMYCIN 1 GM in IV NORMAL SALINE 250ML 250 ML IV SCH (16:30)
--- NOTE | 2019-09-11 16:55 | PDOC ---
Exam Computer Numerical Control Grinder Computer Numerical Control Grinder Henko Night Auditor Night Auditor Isis Pre-Procedure Diagnosis Pre-Procedure Diagnosis ARF Post-Procedure Diagnosis Post-Procedure Diagnosis Same Procedure Performed Procedure Performed RIGHT IJ TEMP DIALYSIS CATH PLACEMENT Type of Anesthesia Type of Anesthesia NONE Estimated Blood Loss EBL: 5cc Specimens Specimans NONE Drain/Tubes Drains/Tubes 19 CM TEMP DIALYSIS CATH, RIJ Condition of Patient Condition of Patient CRITICALLY ILL. UNCHANGED DURING AND FOLLOWING PROCEDURE Disposition Disposition ICU MINDA STREET MD Sep 11, 2019 16:55
--- NOTE | 2019-09-11 17:02 | RAD ---
Renal sonography Clinical indications: Acute kidney injury. Urinary retention. Sepsis. FINDINGS: The study is technically difficult due to the fact that the patient is unresponsive and on the ventilator. The left kidney is not as well-visualized as the right side. The longitudinal AP and transverse dimensions of the right kidney are 9.6 m and 4.2 cm and 4.5 cm respectively. The longitudinal AP and transverse dimensions of left kidney are 9.5 cm and 4.9 cm and 4.9 cm respectively. No hydronephrosis or renal mass or perinephric fluid collection is seen on either side. Urinary bladder is empty due to an indwelling Fisher catheter. IMPRESSION: No hydronephrosis. Electronically signed by: Collin Rosario MD (09/11/2019 4:59 PM) [place] [id number]
[2019-09-11] MEDS ORDERED: LIDOCAINE WITH 8.4% SOD BICARB 3 ML DISP.SYRIN. INJ ONE (17:15)
--- NOTE | 2019-09-11 17:21 | RAD ---
CHEST AP ONLY Clinical History: Technique: AP view of the chest was obtained at 09/11/2019 4:55 PM. Comparison: 11:01 AM. Findings: The heart is borderline enlarged. The right jugular catheter is again seen however there is destruction of a dual-lumen jugular catheter with its tip in the low SVC. The NG tube is again seen. The endotracheal tube is again seen. The pulmonary vessels appear somewhat full and there is reticular opacities of the lungs. Impression: 1. Right jugular dual-lumen catheter well-positioned. No pneumothorax. 2. Moderate interstitial pulmonary infiltrates. This could be ARDS or pneumonia or pulmonary edema and appears unchanged. Electronically signed by: Andrews Laguerre III, MD (09/11/2019 5:18 PM) [id number]
--- NOTE | 2019-09-11 19:33 | NUR ---
[id number] Poor ABG results. Communication amongst DR Jacobs and Dr Davis for elective intubation based on lab results and declining resp status. ETT placed /ventilated. Anesthesia placed A line right radial that is cuff compatible. TLC R IJ and OG insertion w all x rayed/confirmed Difficulty maintaining sats. Anesthesia called w manipulation of ETT at bedside. Repeat chest x ray/ + confirmation of lines once again.Fisher to DD. Compromised liver and renal function reported. per protocol. Dr Auguste aware . Ordered THDC placement done by IR later today. BP decreasing w 3 pressors started thru out the day for assist. Metabloic acidosis- Bicarb gtt started. after TLC placement. All MDs current on pt condition. in early w remainder of family flying in later today/ayesha. Continue POC. Condition guarded.
--- NOTE | 2019-09-11 19:54 | NUR ---
1600 Overt Neuro change w absent corneal reflex,greatly decreased vs absent cough/gag. Earlier ABG report as well as neuro changes discussed w Dr Rivera. !700 All sedation off at this time w neuro status monitoring .
--- NOTE | 2019-09-11 20:00 | NUR ---
Vital signs documented in vital signs intervention only to avoid double charting. Addendum: 09/12/19 at 0027 by MAYA MEZA RN RN Amended: Links added.
--- NOTE | 2019-09-11 20:56 | PN ---
DATE: 09/11/2019 SUBJECTIVE: The patient was transferred from [facility] with acute hypoxic respiratory failure, community-acquired pneumonia. He also has atrial fibrillation with rapid ventricular response that he was treated with cardioversion initially in the Emergency Room and eventually, he continued to go back and forth on atrial fibrillation and therefore he was started on Cardizem and amiodarone drip. He continued to do poorly with marked tachycardia, tachypnea and hypoxia. Eventually, he was intubated this morning and was started on mechanical ventilation. PHYSICAL EXAMINATION: GENERAL: When I saw him this morning, he looked pale, no jaundice, cyanosis or thyromegaly. No jugular venous distention. No lower limb edema. VITAL SIGNS: His heart rate was 87, blood pressure was 102/63, temperature was 97, respiratory rate was 28 and oxygen saturation was 93%. HEAD, EYES, EARS, NOSE AND THROAT: Showed normocephalic, atraumatic. He has orotracheal and orogastric tube in place. NECK: Supple. HEART: Showed normal first and second heart sounds. No gallop or murmur. CHEST: Clear to auscultation. No crepitation or rhonchi. ABDOMEN: Distended, soft, nontender. NEUROLOGICAL: He was encephalopathic. He was sedated; however, he moves all extremities spontaneously. LABORATORY DATA: His lab work this morning showed his white cell count to be 32,000, hemoglobin 11, hematocrit 35, MCV 73 and platelet count of 172,000. His chemistry showed a serum sodium 136, potassium 5.4, chloride 98, bicarbonate 14, anion gap of 24, BUN 58, creatinine 3.1, estimated GFR was 19.6, glucose was 212, calcium was 8.7. Total bilirubin 2.4. AST and ALT were chronically elevated. Alkaline phosphatase is normal. Total protein was 7.2, albumin 3.2. His prothrombin time was 19.1, INR 1.6, aPTT was 37. Fibrinogen was 699. D-dimer was 4.43. His chest x-ray showed diffuse interstitial and hazy airspace opacities bilaterally, slightly decreased in the mid right hemothorax more similar on the left. There is again small right pleural effusion, enlargement. There is also again enlargement of the pericardial-cardiac silhouette. ASSESSMENT: In summary, this is a 79-year-old male patient who was admitted with: 1. Acute hypoxic respiratory failure. 2. Community-acquired pneumonia. 3. Hemoptysis. 4. He has rheumatoid arthritis and possible interstitial lung disease. 5. He has pneumonia, treated initially as community-acquired pneumonia with Rocephin and Zithromax. 6. History of rheumatoid arthritis, atrial fibrillation with rapid ventricular response. 7. Now he has acute kidney injury, raising the possibility of pulmonary renal syndrome. 8. He has also marked elevated lactic acid. PLAN: To continue with mechanical ventilation, sedation. Continue with IV antibiotic as he was switched to piperacillin, tazobactam as well as vancomycin. Continue with amiodarone as well as steroids. I will discontinue his naproxen. INGRIS FINCH MD DR: JOSIANE/jose JOB#: [id number] / [id number]
[2019-09-11] MEDS ORDERED: IV NORMAL SALINE 500ML BAG 500 ML IV ONE (21:15)
--- NOTE | 2019-09-11 21:20 | NUR ---
Patient not having any U/O, Dr. Auguste paged. Page returned, updated on patient condition and U/O. Updated on current gtts. Orders received to give 500 cc bolus of NS and if no results no need to call back because based on patient status low/no U/O is expected.
--- NOTE | 2019-09-11 21:48 | CONS ---
DATE OF CONSULTATION: 09/11/2019 REQUESTING PHYSICIAN: Dr. Griffin. REASON FOR CONSULTATION: Sepsis. HISTORY OF PRESENT ILLNESS: This is a 79-year-old [place] gentleman who was transferred from [facility]. The patient presented to the doctor's office for some cough and sputum production. The patient evidently had a tachycardia at that time, so he was asked to go to the ER. The patient was found to have AFib with rapid ventricular rate. The patient was admitted, he was cardioverted twice and still he went back later on into AFib. The patient also had leukocytosis and pulmonary infiltrate. The patient was started on Rocephin, azithromycin and the patient is on anticoagulation. The patient started having hemoptysis and more hypoxia hence he was transferred to [facility]. The patient was noted to have a lactic acidosis. I changed Rocephin and azithromycin to vancomycin and Zosyn. Of course, the patient also got Lasix and hypotension. Now, the creatinine has from normal it went up, the patient is having respiratory distress with BiPAP and now in the process of getting intubated. The patient is not able to provide any information. All the information was obtained through chart review, discussing with Dr. Griffin and discussing with the patient's nurse. No nausea, vomiting, diarrhea noted. Apparently, the patient and had gone for some traveling and she had come with upper respiratory infection and then subsequently he developed respiratory infection with cough and sputum production. PAST MEDICAL HISTORY: Positive for rheumatoid arthritis, although he is not on any immunosuppressants. The patient has benign prostatic hypertrophy, has had appendicectomy and cataract extraction, relatively very healthy gentleman, is on no medications at home other than naproxen. SOCIAL HISTORY: Negative for smoking, alcohol, drug use. ALLERGIES: No known drug allergies. CURRENT MEDICATIONS: Reviewed. The patient is on Zosyn and I stopped vancomycin. I believe he received one dose of vancomycin. REVIEW OF SYSTEMS: As per HPI, all other systems reviewed and are negative. PHYSICAL EXAMINATION: GENERAL: This gentleman on a BiPAP, in respiratory distress. VITAL SIGNS: Temperature 97.0, pulse 87, respirations 29, blood pressure 113/68. HEENT: Both pupils are round and reacting. No conjunctival lesion, no lesion in the mouth. NECK: Supple, no JVP, no lymphadenopathy. LUNGS: Clear. HEART: S1, S2 regular. ABDOMEN: Soft, nontender, no organomegaly. EXTREMITIES: No edema, cyanosis. SKIN: Unremarkable. NEUROLOGIC: The patient is neurologically, as my communication with Dr. Griffin, had been alert, awake and appropriate. No focal neurologic deficit. Now, the patient is in respiratory distress, somnolent and in the process of getting intubated. LABORATORY DATA: White count is 32,000, hemoglobin 10.8, platelets are 172,000. BUN and creatinine was normal. When he came in, it was 28 and 1.3, now 58 and 3.1. Lactic acid 7.8, AST 2,970 and ALT 2,225. Blood culture and urine culture at [facility] are pending, so far negative. The patient did have a CT chest there as well as x-ray showing bilateral diffuse airspace disease. IMPRESSION: 1. Respiratory failure. 2. Pulmonary infiltrate. There is no cardiac history. Most likely to be all respiratory infection with possible even going into acute respiratory distress syndrome. 3. Leukocytosis. 4. Acute kidney injury, multifactorial from hypotension and being sick. 5. History of rheumatoid arthritis, had been on naproxen. 6. Circulatory failure. RECOMMENDATIONS: 1. Continue Zosyn, adjust the dose. 2. Discontinue vancomycin. 3. Add levofloxacin. 4. Núñez culture. 5. Supportive care. 6. Legionella and strep pneumo antigen. Discussion with Dr. Griffin done and discussed with Dr. Jacobs. Thank you very much, Dr. Griffin, for giving me the opportunity to participate in this patient's care. VICKI GAN MD DR: OBED/jose JOB#: [id number] / [id number]
[2019-09-12] VITALS (30 sets, daily range): BP systolic 94–161; BP diastolic 48–69
[2019-09-12] MEDS: NOREPINEPHRIN 8MG/250ML PREMIX 250 ML IV PRN ×2 (01:27→10:47)
[2019-09-12] MEDS: SODIUM BICARBONATE VIAL 100 MEQ in IV DEXTROSE 5% 1,000 ML IV SCH ×2 (01:27→16:30)
[2019-09-12] MEDS: VASOPRESSIN 40 UNIT in IV DEXTROSE 5% 100ML 100 ML IV PRN ×2 (01:29→16:31)
[2019-09-12] MEDS: methylPREDNISolone SOD SUCC PF 40 MG/ML VIAL. IV SCH ×3 (05:32→21:39)
[2019-09-12] MEDS: PIPERACILLIN/TAZOBACTAM 3.375 GM in IV NORMAL SALINE 50ML 50 ML IV SCH ×3 (05:32→21:39)
[2019-09-12 05:57] LABS: HEMATOCRIT 23.8 % (39.0-53.0); HEMOGLOBIN 7.3 g/dL (13.0-17.5); RED BLOOD COUNT 3.25 x10^6/uL (4.30-5.70)
[2019-09-12 06:05] LABS: WHITE BLOOD COUNT 40.7 x10^3/uL (4.0-11.0)
--- NOTE | 2019-09-12 06:09 | NUR ---
Critical WBC of 40.7 called by lab at 0605. Dr. Dago kim, page returned at [phone]. Updated on critical lab value and patient condition, no new orders received at this time.
[2019-09-12 07:12] LABS: ALBUMIN 2.2 g/dL (3.4-5.0); ALBUMIN/GLOBULIN RATIO 0.6 (1.0-1.7); CREATININE 5.5 mg/dL (0.7-1.3); GFR 10.1; POTASSIUM 5.7 mmol/L (3.5-5.1); TOTAL BILIRUBIN 3.9 mg/dL (0.2-1.0); TOTAL PROTEIN 5.6 g/dL (6.4-8.2)
--- NOTE | 2019-09-12 07:44 | PDOC ---
Infectious Disease Note Subjective Subjective sedated on vent ROS ROS no n/v/d/ did have fever Vital Sign Vital Signs Vital Signs Date Time Temp Pulse Resp B/P (MAP) Pulse Ox O2 Delivery O2 Flow Rate FiO2 09/12/19 06:00 89 30 113/49 (70) 96 Ventilator 09/12/19 04:00 99.5 99.5 09/11/19 11:56 15.0 Physical Exam PHYSICAL EXAM GENERAL: orally intubated on vent VITAL SIGNS: stable HEENT: Both pupils are round and reacting. No conjunctival lesion, no lesion in the mouth. NECK: Supple, no JVP, no lymphadenopathy. LUNGS: Clear. HEART: S1, S2 regular. ABDOMEN: Soft, nontender, no organomegaly. EXTREMITIES: No edema, cyanosis. SKIN: Unremarkable. NEUROLOGIC: sedated intubated Labs Lab Laboratory Tests Test 09/11/19 08:00 09/11/19 09:25 09/11/19 14:15 09/12/19 05:30 O2 Saturation 93 % (92-99) 82 % (92-99) 87 % (92-99) Arterial Blood pH 7.25 (7.35-7.45) 6.99 (7.35-7.45) 7.13 (7.35-7.45) Arterial Blood pCO2 at Patient Temp 28 mmHg (35-46) 50 mmHg (35-46) 41 mmHg (35-46) Arterial Blood pO2 at Patient Temp 82 mmHg (65-108) 74 mmHg (65-108) 72 mmHg (65-108) Arterial Blood HCO3 12 mmol/L (21-28) 12 mmol/L (21-28) 13 mmol/L (21-28) Arterial Blood Base Excess -14 mmol/L (-3-3) -19 mmol/L (-3-3) -15 mmol/L (-3-3) FiO2 40 100 100 White Blood Count 40.7 x10^3/uL (4.0-11.0) Red Blood Count 3.25 x10^6/uL (4.30-5.70) Hemoglobin 7.3 g/dL (13.0-17.5) Hematocrit 23.8 % (39.0-53.0) Mean Corpuscular Volume 73 fL (79-100) Mean Corpuscular Hemoglobin 23 pg (25-35) Mean Corpuscular Hemoglobin Concent 31 g/dL (31-37) Red Cell Distribution Width 16.0 % (11.5-14.5) Platelet Count 92 x10^3/uL (140-400) Micro BC neg from [place] so far Objective Assessment 1. Respiratory failure. 2. Pulmonary infiltrate. There is no cardiac history. Most likely to be all respiratory infection with possible even going into acute respiratory distress syndrome. 3. Leukocytosis. 4. Acute kidney injury, multifactorial from hypotension and being sick. 5. History of rheumatoid arthritis, had been on naproxen. 6. Circulatory failure. Plan Plan of Care cont levaquin and zosyn cont supportive care check cultures workup VICKI GAN MD Sep 12, 2019 07:44
--- NOTE | 2019-09-12 08:24 | NUR ---
SS following up with discharge planning. Pt is currently on the vent. SS will continue to follow for discharge planning.
[2019-09-12] MEDS: ALBUTEROL SULFATE 2.5 MG/3 ML NEBU. NEB SCH ×4 (08:33→20:08)
--- NOTE | 2019-09-12 08:36 | CARD ---
MR#: [id number] Date of Study: 09/11/2019 Ordering Physician: ALEX SMILEY, Referring Physician: ALEX SMILEY, Tech: Evy Carrion APPROVED REPORT EXAM: Two-dimensional and M-mode echocardiogram with Doppler and color Doppler. Other Information Quality : AverageHR: 95bpm INDICATION Septic Shock 2D DIMENSIONS RVDd2.9 (2.9-3.5cm)Left Atrium(2D)3.6 (1.6-4.0cm) IVSd1.2 (0.7-1.1cm)Aortic Root(2D)3.0 (2.0-3.7cm) LVDd4.4 (3.9-5.9cm)PWd1.2 (0.7-1.1cm) LVDs2.9 (2.5-4.0cm)FS (%) 34.2 % SV56.2 mlLVEF(%)63.4 (>50%) LEFT VENTRICLE The left ventricle is normal size. There is mild concentric left ventricular hypertrophy. The left ve ntricular systolic function is normal. The Ejection Fraction is 50-55%. There is normal LV segmental wall motion. Diastology not performed. RIGHT VENTRICLE The right ventricle is normal size. There is normal right ventricular wall thickness. The right ventr icular systolic function is normal. ATRIA The left atrium is borderline dilated. The right atrium size is normal. The interatrial septum is int act with no evidence for an atrial septal defect or patent foramen ovale as noted on 2-D or Doppler i maging. AORTIC VALVE The aortic valve is thickened but opens well. Doppler and color-flow analysis was not performed. Ther e is no significant aortic valvular stenosis. MITRAL VALVE The mitral valve is mildly thickened. There is no evidence of mitral valve prolapse. There is no mitr al valve stenosis. Doppler and color-flow analysis was not performed. TRICUSPID VALVE The tricuspid valve is normal in structure and function. Doppler and color-flow analysis was not perf ormed. There is no tricuspid valve stenosis. PULMONIC VALVE The pulmonic valve is not visualized. GREAT VESSELS The aortic root is normal in size. The IVC is normal in size and collapses >50% with inspiration. PERICARDIAL EFFUSION There is no evidence of significant pericardial effusion. Critical Notification Critical Value: No <Conclusion> Limited echo to assess LV function. The left ventricular systolic function is normal. The Ejection Fraction is 50-55%. There is no evidence of significant pericardial effusion. Signed by : Moncho Briones, Electronically Approved : 09/12/2019 08:35:37
[2019-09-12 08:41] LABS: BASE EXCESS ABG -13 mmol/L (-3-3); HCO3 ABG 13 mmol/L (21-28); PCO2 ABG 29 mmHg (35-46); PO2 ABG 98 mmHg (65-108); SAT O2 ABG 96 % (92-99)
[2019-09-12] MEDS ORDERED: DIALYSIS IV SCH ×14 (09:00→13:00)
[2019-09-12] MEDS: DUTASTERIDE 0.5 MG CAPSULE PO SCH (09:00)
[2019-09-12] MEDS ORDERED: CALCIUM CHLORIDE IV SCH ×14 (09:00→13:00)
--- NOTE | 2019-09-12 09:10 | RAD ---
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 Informed consent was obtained. A timeout procedure was performed. All elements of maximal sterile barrier technique including the use of a cap, mask, sterile gown, sterile gloves, large sterile sheet, appropriate hand hygiene, and 2% chlorhexidine for cutaneous antisepsis (or acceptable alternative antiseptic per current guidelines) were followed for this procedure. The patient was prepped and draped in the usual sterile fashion. Ultrasound interrogation of the right neck revealed patency and compressibility of the right internal jugular vein. A 21-gauge micropuncture was then used to gain access to this vein under ultrasound guidance. A hard copy ultrasound image was recorded. A guidewire was advanced centrally. 5 Georgian sheath was placed. Over a wire following dilatation, a temporary dialysis catheter was advanced centrally. Catheter was found to flush and aspirate normally. Follow-up chest radiograph demonstrates tip at the cavoatrial junction. Catheter secured in place and a sterile dressing was applied. No immediate complications were identified. Impression: Successful ultrasound-guided placement of right internal jugular temporary dialysis catheter
--- NOTE | 2019-09-12 09:30 | PDOC ---
SUBJECTIVE ROS Intubated, on fentanyl only OBJECTIVE Vital Signs Vital Signs Date Time Temp Pulse Resp B/P (MAP) Pulse Ox O2 Delivery O2 Flow Rate FiO2 09/12/19 08:33 99 Ventilator 09/12/19 06:00 89 30 113/49 (70) 09/12/19 04:00 99.5 99.5 09/11/19 11:56 15.0 I & 0 Intake and Output 09/12/19 07:00 Intake Total 2458 ml Output Total 250 ml Balance 2208 ml Intake Oral 0 ml IV Total 2458 ml Output Urine Total 250 ml PHYSICAL EXAM Physical Exam GENERAL: orally intubated on vent HEENT: Both pupils are round and reacting. Orally intubated NECK: Supple, LUNGS: Clear. HEART: S1, S2 regular. ABDOMEN: Soft, EXTREMITIES: No edema, cyanosis. SKIN: Unremarkable. 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 Pneumonia Possible interstitial lung disease/pulmonary fibrosis. History of rheumatoid arthritis. Atrial fibrillation with rapid ventricular response. Cardioverted Discussed with RN COMMENT/RELEVANT DATA Meds Current Medications Medications (Trade) Dose Ordered Sig/Veena Start Time Stop Time Status Last Admin Dose Admin Albuterol Sulfate (Ventolin Neb Soln) 2.5 mg RTQID 09/10/19 08:00 09/12/19 08:33 2.5 MG Amiodarone HCl 450 mg/Dextrose 259 ml @ 17 mls/hr CONT PRN 09/10/19 09:00 09/11/19 02:33 17 MLS/HR Azithromycin (Zithromax) 250 mg DAILY 09/10/19 09:00 09/10/19 13:35 DC 09/10/19 08:38 250 MG Bisacodyl (Dulcolax Supp) 10 mg PRN DAILY PRN 09/10/19 10:00 09/10/19 10:00 10 MG Calcium Chloride 12.5 meq/ Bicarbonate Dialysis Soln w/ out KCl 5,008.9286 ml @ 1,000 mls/hr Q5H1M 09/12/19 09:00 Ceftriaxone Sodium (Rocephin) 1 gm Q24H 09/10/19 12:00 09/10/19 13:35 DC 09/10/19 12:55 1 GM Diltiazem HCl 125 mg/Dextrose 125 ml @ 0 mls/hr CONT PRN 09/10/19 06:30 09/11/19 05:40 10 MLS/HR Dutasteride (Avodart) 0.5 mg DAILY 09/10/19 09:00 09/11/19 12:23 0.5 MG Epinephrine HCl 4 mg/Sodium Chloride 254 ml @ 28.061 mls/ hr CONT PRN 09/11/19 15:45 Fentanyl Citrate 30 ml @ 0 mls/hr CONT PRN 09/11/19 10:15 09/11/19 11:26 0 MLS/HR Furosemide (Lasix) 40 mg 1X ONCE 09/10/19 15:45 09/10/19 15:46 DC 09/10/19 16:38 40 MG Influenza Virus Vaccine Quadrival (Afluria Quad 2019-20 (3yr Up) Syringe) 0.5 ml ONCE ONCE 09/11/19 09:00 09/11/19 09:01 DC Lactobacillus Rhamnosus (Culturelle) 1 cap BID 09/10/19 09:00 09/12/19 09:15 DC 09/11/19 21:16 1 CAP Levofloxacin/ Dextrose 100 ml @ 100 mls/hr Q24H 09/12/19 09:00 Lidocaine HCl (Buffered Lidocaine 1%) 3 ml 1X ONCE 09/11/19 17:15 09/11/19 17:16 DC 09/11/19 17:14 3 ML Lorazepam (Ativan Inj) 0.5 mg 1X ONCE 09/10/19 11:45 09/10/19 11:47 DC 09/10/19 11:48 0.5 MG Methylprednisolone Sodium Succinate (SOLU-Medrol 40MG VIAL) 40 mg Q8HRS 09/10/19 08:00 09/12/19 05:32 40 MG Midazolam HCl 100 ml @ 0 mls/hr CONT PRN 09/11/19 10:15 09/11/19 11:30 5 MLS/HR Morphine Sulfate (Morphine Sulfate) 4 mg PRN Q2HR PRN 09/10/19 21:15 09/11/19 20:31 4 MG Naproxen (Naprosyn) 500 mg PRN BID PRN 09/10/19 06:30 Norepinephrine Bitartrate 250 ml @ 13.81 mls/ hr CONT PRN 09/11/19 10:45 09/12/19 01:27 25 MLS/HR Piperacillin Sod/ Tazobactam Sod 3.375 gm/Sodium Chloride 50 ml @ 100 mls/hr Q8HRS 09/11/19 14:00 09/12/19 05:32 100 MLS/HR Propofol 100 ml @ 0 mls/hr CONT PRN 09/11/19 10:15 Sodium Bicarbonate 100 meq/Dextrose 1,100 ml @ 75 mls/hr [id number] 09/11/19 09:00 09/12/19 01:27 75 MLS/HR Sodium Bicarbonate (Sodium Bicarb Adult 8.4% Syr) 100 meq 1X ONCE 09/11/19 11:15 09/11/19 11:16 DC 09/11/19 11:28 100 MEQ Sodium Chloride 500 ml @ 500 mls/hr 1X ONCE 09/11/19 21:15 09/11/19 22:14 DC 09/11/19 21:21 500 MLS/HR Sodium Chloride (Normal Saline Flush) 10 ml QSHIFT PRN 09/10/19 07:00 Succinylcholine Chloride (Anectine) 200 mg STK-MED ONCE 09/11/19 10:57 09/11/19 10:57 DC Vancomycin HCl (Vanco Per Pharmacy) 1 each PRN DAILY PRN 09/10/19 14:00 09/11/19 07:59 DC 09/10/19 16:55 1 EACH Vancomycin HCl (Vancomycin Trough Level) 1 each 1X ONCE 09/12/19 16:00 09/11/19 08:01 DC Vancomycin HCl 1.5 gm/Sodium Chloride 500 ml @ 250 mls/hr 1X ONCE 09/10/19 14:00 09/10/19 15:59 DC 09/10/19 16:39 250 MLS/HR Vancomycin HCl 1 gm/Sodium Chloride 250 ml @ 250 mls/hr Q24H 09/11/19 16:30 09/11/19 07:59 DC Vasopressin 40 unit/Dextrose 102 ml @ 6 mls/hr CONT PRN 09/11/19 11:30 09/12/19 01:29 6 MLS/HR Lab Laboratory Tests Test 09/11/19 09:25 09/11/19 14:15 09/12/19 05:30 09/12/19 06:40 O2 Saturation 82 % (92-99) 87 % (92-99) Arterial Blood pH 6.99 (7.35-7.45) 7.13 (7.35-7.45) Arterial Blood pCO2 at Patient Temp 50 mmHg (35-46) 41 mmHg (35-46) Arterial Blood pO2 at Patient Temp 74 mmHg (65-108) 72 mmHg (65-108) Arterial Blood HCO3 12 mmol/L (21-28) 13 mmol/L (21-28) Arterial Blood Base Excess -19 mmol/L (-3-3) -15 mmol/L (-3-3) FiO2 100 100 White Blood Count 40.7 x10^3/uL (4.0-11.0) Red Blood Count 3.25 x10^6/uL (4.30-5.70) Hemoglobin 7.3 g/dL (13.0-17.5) Hematocrit 23.8 % (39.0-53.0) Mean Corpuscular Volume 73 fL (79-100) Mean Corpuscular Hemoglobin 23 pg (25-35) Mean Corpuscular Hemoglobin Concent 31 g/dL (31-37) Red Cell Distribution Width 16.0 % (11.5-14.5) Platelet Count 92 x10^3/uL (140-400) Sodium Level 137 mmol/L (136-145) Potassium Level 5.7 mmol/L (3.5-5.1) Chloride Level 98 mmol/L (98-107) Carbon Dioxide Level 17 mmol/L (21-32) Anion Gap 22 (6-14) Blood Urea Nitrogen 80 mg/dL (8-26) Creatinine 5.5 mg/dL (0.7-1.3) Estimated GFR (Cockcroft-Gault) 10.1 BUN/Creatinine Ratio 15 (6-20) Glucose Level 163 mg/dL (70-99) Calcium Level 7.0 mg/dL (8.5-10.1) Total Bilirubin 3.9 mg/dL (0.2-1.0) Aspartate Amino Transf (AST/SGOT) 6667 U/L (15-37) Alanine Aminotransferase (ALT/SGPT) 3921 U/L (16-63) Alkaline Phosphatase 93 U/L (46-116) Total Protein 5.6 g/dL (6.4-8.2) Albumin 2.2 g/dL (3.4-5.0) Albumin/Globulin Ratio 0.6 (1.0-1.7) Results All relevant outside records, renal labs, imaging studies, telemetry/EKG's were reviewed. Other Renal US -- The study is technically difficult due to the fact that the patient is unresponsive and on the ventilator. The left kidney is not as well-visualized as the right side. The longitudinal AP and transverse dimensions of the right kidney are 9.6 m and 4.2 cm and 4.5 cm respectively. The longitudinal AP and transverse dimensions of left kidney are 9.5 cm and 4.9 cm and 4.9 cm respectively. No hydronephrosis or renal mass or perinephric fluid collection is seen on either side. Urinary bladder is empty due to an indwelling Gould catheter. JAMEL LOPEZ MD Sep 12, 2019 09:30
[2019-09-12 09:31] LABS: FIO2 ABG 90
--- NOTE | 2019-09-12 09:37 | NUR ---
Flushed catheter with 60 cc sterile water. Return of 60 cc liquid into catheter.
--- NOTE | 2019-09-12 09:46 | PDOC ---
PULMONARY PROGRESS NOTES Subjective INTUBATED 09/11 BY ANESTHESIA NOW AC MODE 90% UNDERGOING CRRT Vitals Vital Signs Date Time Temp Pulse Resp B/P (MAP) Pulse Ox O2 Delivery O2 Flow Rate FiO2 09/12/19 08:33 99 Ventilator 09/12/19 06:00 89 30 113/49 (70) 09/12/19 04:00 99.5 99.5 09/11/19 11:56 15.0 Lungs: Crackles Cardiovascular: S1, S2 Abdomen: Soft Extremities: Other (EDMA ) Skin: Warm Labs Laboratory Tests Test 09/10/19 11:25 09/10/19 14:10 09/11/19 05:15 09/11/19 07:00 Lactic Acid Level 7.8 mmol/L (0.4-2.0) O2 Saturation 92 % (92-99) Arterial Blood pH 7.35 (7.35-7.45) Arterial Blood pCO2 at Patient Temp 33 mmHg (35-46) Arterial Blood pO2 at Patient Temp 74 mmHg (65-108) Arterial Blood HCO3 18 mmol/L (21-28) Arterial Blood Base Excess -7 mmol/L (-3-3) FiO2 60 Sodium Level 136 mmol/L (136-145) Potassium Level 5.4 mmol/L (3.5-5.1) Chloride Level 98 mmol/L (98-107) Carbon Dioxide Level 14 mmol/L (21-32) Anion Gap 24 (6-14) Blood Urea Nitrogen 58 mg/dL (8-26) Creatinine 3.1 mg/dL (0.7-1.3) Estimated GFR (Cockcroft-Gault) 19.6 BUN/Creatinine Ratio 19 (6-20) Glucose Level 212 mg/dL (70-99) Calcium Level 8.7 mg/dL (8.5-10.1) Total Bilirubin 2.4 mg/dL (0.2-1.0) Aspartate Amino Transf (AST/SGOT) 2970 U/L (15-37) Alanine Aminotransferase (ALT/SGPT) 2225 U/L (16-63) Alkaline Phosphatase 111 U/L (46-116) Total Protein 7.2 g/dL (6.4-8.2) Albumin 3.2 g/dL (3.4-5.0) Albumin/Globulin Ratio 0.8 (1.0-1.7) White Blood Count 32.3 x10^3/uL (4.0-11.0) Red Blood Count 4.79 x10^6/uL (4.30-5.70) Hemoglobin 10.8 g/dL (13.0-17.5) Hematocrit 34.8 % (39.0-53.0) Mean Corpuscular Volume 73 fL (79-100) Mean Corpuscular Hemoglobin 23 pg (25-35) Mean Corpuscular Hemoglobin Concent 31 g/dL (31-37) Red Cell Distribution Width 15.9 % (11.5-14.5) Platelet Count 172 x10^3/uL (140-400) Test 09/11/19 08:00 09/11/19 09:25 09/11/19 14:15 09/12/19 05:30 O2 Saturation 93 % (92-99) 82 % (92-99) 87 % (92-99) Arterial Blood pH 7.25 (7.35-7.45) 6.99 (7.35-7.45) 7.13 (7.35-7.45) Arterial Blood pCO2 at Patient Temp 28 mmHg (35-46) 50 mmHg (35-46) 41 mmHg (35-46) Arterial Blood pO2 at Patient Temp 82 mmHg (65-108) 74 mmHg (65-108) 72 mmHg (65-108) Arterial Blood HCO3 12 mmol/L (21-28) 12 mmol/L (21-28) 13 mmol/L (21-28) Arterial Blood Base Excess -14 mmol/L (-3-3) -19 mmol/L (-3-3) -15 mmol/L (-3-3) FiO2 40 100 100 White Blood Count 40.7 x10^3/uL (4.0-11.0) Red Blood Count 3.25 x10^6/uL (4.30-5.70) Hemoglobin 7.3 g/dL (13.0-17.5) Hematocrit 23.8 % (39.0-53.0) Mean Corpuscular Volume 73 fL (79-100) Mean Corpuscular Hemoglobin 23 pg (25-35) Mean Corpuscular Hemoglobin Concent 31 g/dL (31-37) Red Cell Distribution Width 16.0 % (11.5-14.5) Platelet Count 92 x10^3/uL (140-400) Test 09/12/19 06:40 09/12/19 08:00 Sodium Level 137 mmol/L (136-145) Potassium Level 5.7 mmol/L (3.5-5.1) Chloride Level 98 mmol/L (98-107) Carbon Dioxide Level 17 mmol/L (21-32) Anion Gap 22 (6-14) Blood Urea Nitrogen 80 mg/dL (8-26) Creatinine 5.5 mg/dL (0.7-1.3) Estimated GFR (Cockcroft-Gault) 10.1 BUN/Creatinine Ratio 15 (6-20) Glucose Level 163 mg/dL (70-99) Calcium Level 7.0 mg/dL (8.5-10.1) Total Bilirubin 3.9 mg/dL (0.2-1.0) Aspartate Amino Transf (AST/SGOT) 6667 U/L (15-37) Alanine Aminotransferase (ALT/SGPT) 3921 U/L (16-63) Alkaline Phosphatase 93 U/L (46-116) Total Protein 5.6 g/dL (6.4-8.2) Albumin 2.2 g/dL (3.4-5.0) Albumin/Globulin Ratio 0.6 (1.0-1.7) O2 Saturation 96 % (92-99) Arterial Blood pH 7.26 (7.35-7.45) Arterial Blood pCO2 at Patient Temp 29 mmHg (35-46) Arterial Blood pO2 at Patient Temp 98 mmHg (65-108) Arterial Blood HCO3 13 mmol/L (21-28) Arterial Blood Base Excess -13 mmol/L (-3-3) FiO2 90 Laboratory Tests Test 09/11/19 14:15 09/12/19 05:30 09/12/19 06:40 09/12/19 08:00 O2 Saturation 87 % (92-99) 96 % (92-99) Arterial Blood pH 7.13 (7.35-7.45) 7.26 (7.35-7.45) Arterial Blood pCO2 at Patient Temp 41 mmHg (35-46) 29 mmHg (35-46) Arterial Blood pO2 at Patient Temp 72 mmHg (65-108) 98 mmHg (65-108) Arterial Blood HCO3 13 mmol/L (21-28) 13 mmol/L (21-28) Arterial Blood Base Excess -15 mmol/L (-3-3) -13 mmol/L (-3-3) FiO2 100 90 White Blood Count 40.7 x10^3/uL (4.0-11.0) Red Blood Count 3.25 x10^6/uL (4.30-5.70) Hemoglobin 7.3 g/dL (13.0-17.5) Hematocrit 23.8 % (39.0-53.0) Mean Corpuscular Volume 73 fL (79-100) Mean Corpuscular Hemoglobin 23 pg (25-35) Mean Corpuscular Hemoglobin Concent 31 g/dL (31-37) Red Cell Distribution Width 16.0 % (11.5-14.5) Platelet Count 92 x10^3/uL (140-400) Sodium Level 137 mmol/L (136-145) Potassium Level 5.7 mmol/L (3.5-5.1) Chloride Level 98 mmol/L (98-107) Carbon Dioxide Level 17 mmol/L (21-32) Anion Gap 22 (6-14) Blood Urea Nitrogen 80 mg/dL (8-26) Creatinine 5.5 mg/dL (0.7-1.3) Estimated GFR (Cockcroft-Gault) 10.1 BUN/Creatinine Ratio 15 (6-20) Glucose Level 163 mg/dL (70-99) Calcium Level 7.0 mg/dL (8.5-10.1) Total Bilirubin 3.9 mg/dL (0.2-1.0) Aspartate Amino Transf (AST/SGOT) 6667 U/L (15-37) Alanine Aminotransferase (ALT/SGPT) 3921 U/L (16-63) Alkaline Phosphatase 93 U/L (46-116) Total Protein 5.6 g/dL (6.4-8.2) Albumin 2.2 g/dL (3.4-5.0) Albumin/Globulin Ratio 0.6 (1.0-1.7) Medications Active Scripts Medications Dose Route/Sig Max Daily Dose Days Date Category Naproxen 500 Mg Tablet 1 Tab PO PRN BID PRN 30 09/10/19 Reported Avodart (Dutasteride) 0.5 Mg Capsule 1 Cap PO DAILY 09/10/19 Reported Impression . IMPRESSION: 1. Acute hypoxemic respiratory failure/ARDS 2. SEPTIC SHOCK 3. Abnormal CT chest revealing bilateral pulmonary infiltrates. 4. Pneumonia, suspect gram-negative, gram-positive. 5. Possible acute pulmonary edema. 6. Possible interstitial lung disease/pulmonary fibrosis. 7. History of rheumatoid arthritis. 8. Atrial fibrillation with rapid ventricular response. 9. ACUTE MET ACIDOSIS 10. ACUTE RENAL FAILURE 11. ACUTE BLOOD LOSS ANEMIA VS DIC 12. ACUTE KIDNEY INJURY CXR Findings: Portable semiupright frontal view of chest was obtained. Small and large bore central venous catheters on the right are present terminating overlying the right atrium. Endotracheal tube terminates 0.6 mm from the lang. Enteric tube again seen. Heart size is borderline. Pulmonary interstitial thickening and/or edema again seen. No pneumothorax. No new focal consolidation. Consolidative appearance of the left basal retrocardiac region similar to prior exam. Plan . CASE D/W TETE FINCH AND JESSICA WILL CONTINUE SUPPORT WITH VENT CRRT STARTED TOO SICK TO UNDERGO BRONCH ANTIBX PER ID START TF DVT AND GI PROPH CONSULT HEME INCREASE I E RATION INCREASE PEEP DECREASE 02 CCT IN 3 MINUTES/ REVIEWING DATA/XRAYS/FORMULATING A PLAN D/W AND SONS FROM OUT OF TOWN VIRGEN ROME MD Sep 12, 2019 09:46
--- NOTE | 2019-09-12 10:15 | NUR ---
Ray COSTA at bedside initiating CRRT.
[2019-09-12 10:20] LABS: INFLUENZA A PATIENT NEGATIVE (NEGATIVE); INFLUENZA B PATIENT NEGATIVE (NEGATIVE)
--- NOTE | 2019-09-12 11:35 | RAD ---
Examination: PORTABLE CHEST 1V History: Intubated Comparison/Correlation: 09/11/2019 AP view of the chest Findings: Portable semiupright frontal view of chest was obtained. Small and large bore central venous catheters on the right are present terminating overlying the right atrium. Endotracheal tube terminates 0.6 mm from the lang. Enteric tube again seen. Heart size is borderline. Pulmonary interstitial thickening and/or edema again seen. No pneumothorax. No new focal consolidation. Consolidative appearance of the left basal retrocardiac region similar to prior exam. Impression: No significant change in pulmonary aeration. Endotracheal tube terminates near the lang. Consider retraction by 1 cm if not already performed. Electronically signed by: Marlo Red MD (09/12/2019 11:32 AM) [facility]
--- NOTE | 2019-09-12 11:49 | PN ---
DATE: 09/12/2019 SUBJECTIVE: The patient continues to be critical. He is on vent, requiring FiO2 of 90%. He is on Levophed and vasopressin. He is currently on continuous renal replacement therapy. His white cell count has risen further to 40,700. His hemoglobin dropped down to 7.3 and hematocrit 23.8. He has also thrombocytopenia. His chemistry showed that his creatinine has risen further from 1.3 to 5.5 with BUN from 28 to 80. He is hyperkalemic. His liver enzymes, particularly AST and ALT have dramatically risen to 6,000 and 3000 respectively, although his alkaline phosphatase is normal. When I examined him, he was intubated and mechanically ventilated. He is on continuous renal replacement therapy. PHYSICAL EXAMINATION: VITAL SIGNS: His heart rate was 97, blood pressure was 102/54, temperature was 99.6, respiratory rate was 30, and oxygen saturation was 95% on FiO2 of 90%. HEAD, EYES, EARS, NOSE, AND THROAT: Showed he is normocephalic and atraumatic. He has orotracheal and orogastric tube in place. NECK: Supple. HEART: Showed normal first and second heart sounds. No gallop or murmur. CHEST: Showed central trachea with equal bilateral expansion, air entry, and vesicular sounds. No crepitation or rhonchi. ABDOMEN: Distended, soft, and nontender. NEUROLOGIC: He was heavily sedated on Versed and propofol as well as fentanyl citrate. His intake is 462 and output was 350. LABORATORY DATA: Lab work as of this morning showed a serum sodium 137, potassium 5.7, chloride 98, bicarbonate 17, anion gap of 22, BUN of 80, creatinine 5.5, estimated GFR was 10 mL per minute, his glucose was 163, and calcium was 7. Total bilirubin was 3.9. AST was 6667, ALT was 3921, and alkaline phosphatase 193. Total protein 5.6 and albumin was 2.1. His white cell count was 40,700, hemoglobin 7.3, hematocrit 23.8, MCV 73, and platelet count of 92,000. His prothrombin time was 19.1, INR 1.6, and aPTT 37. Fibrinogen was 699. D-dimer was 4.43. ASSESSMENT: 1. Acute hypoxic respiratory syndrome. 2. Sepsis syndrome with multiorgan failure. 3. Possible acute pulmonary edema versus interstitial lung disease and pulmonary fibrosis. 4. History of rheumatoid arthritis. 5. Atrial fibrillation with rapid ventricular response. 6. Acute renal failure. 7. He has also probably disseminated intravascular coagulation. PLAN: Continue mechanical ventilation. Continue with continuous renal replacement therapy. Continue with the pressors in the form of epinephrine and vasopressin. Continue with antibiotic in the form of piperacillin, tazobactam, and amiodarone drip as well as steroids. I will definitely discontinue naproxen and start him on Protonix for GI prophylaxis as well as SCD for DVT prophylaxis. I have spoken with the and the son and explained that the patient is very critical and has multiorgan failure including respiratory failure, probably acute respiratory distress syndrome, acute renal failure, and marked elevation of the liver due to shock liver. So far, no cultures available. INGRIS FINCH MD DR: JOSIANE/jose JOB#: [id number] / [id number]
[2019-09-12 12:32] LABS: FIBRINOGEN 258 mg/dL (200-440)
[2019-09-12 12:33] LABS: PARTIAL THROMBOPLASTIN TIME 43 SEC (24-38); PROTHROMBIN TIME PATIENT 45.7 SEC (11.7-14.0)
[2019-09-12] MEDS: PANTOPRAZOLE IV PUSH 40 MG VIAL. IVP SCH (12:35)
[2019-09-12 13:00] LABS: D-DIMER > 20.00 ug/mlFEU (0.00-0.50)
[2019-09-12 13:01] LABS: PLATELET COUNT 112 x10^3/uL (140-400)
--- NOTE | 2019-09-12 15:20 | PDOC ---
LIBORIO ILN MUTUEL TELLER 09/12/19 1520: CARDIO Progress Notes Date and Time Date of Service 09/12/2019 Time of Evaluation 1430 Subjective Subjective: Other (sedated ) Vitals Vitals Vital Signs Date Time Temp Pulse Resp B/P (MAP) Pulse Ox O2 Delivery O2 Flow Rate FiO2 09/12/19 14:00 85 30 143/68 (93) 100 Ventilator 09/12/19 12:00 97.5 97.5 09/11/19 11:56 15.0 Weight Weight [ ] Input and Output Intake and Output Intake and Output 09/12/19 07:00 Intake Total 2458 ml Output Total 250 ml Balance 2208 ml Intake Oral 0 ml IV Total 2458 ml Output Urine Total 250 ml Laboratory Labs Laboratory Tests Test 09/12/19 05:30 09/12/19 06:40 09/12/19 08:00 09/12/19 09:52 White Blood Count 40.7 x10^3/uL (4.0-11.0) Red Blood Count 3.25 x10^6/uL (4.30-5.70) Hemoglobin 7.3 g/dL (13.0-17.5) Hematocrit 23.8 % (39.0-53.0) Mean Corpuscular Volume 73 fL (79-100) Mean Corpuscular Hemoglobin 23 pg (25-35) Mean Corpuscular Hemoglobin Concent 31 g/dL (31-37) Red Cell Distribution Width 16.0 % (11.5-14.5) Platelet Count 92 x10^3/uL (140-400) Sodium Level 137 mmol/L (136-145) Potassium Level 5.7 mmol/L (3.5-5.1) Chloride Level 98 mmol/L (98-107) Carbon Dioxide Level 17 mmol/L (21-32) Anion Gap 22 (6-14) Blood Urea Nitrogen 80 mg/dL (8-26) Creatinine 5.5 mg/dL (0.7-1.3) Estimated GFR (Cockcroft-Gault) 10.1 BUN/Creatinine Ratio 15 (6-20) Glucose Level 163 mg/dL (70-99) Calcium Level 7.0 mg/dL (8.5-10.1) Total Bilirubin 3.9 mg/dL (0.2-1.0) Aspartate Amino Transf (AST/SGOT) 6667 U/L (15-37) Alanine Aminotransferase (ALT/SGPT) 3921 U/L (16-63) Alkaline Phosphatase 93 U/L (46-116) Total Protein 5.6 g/dL (6.4-8.2) Albumin 2.2 g/dL (3.4-5.0) Albumin/Globulin Ratio 0.6 (1.0-1.7) O2 Saturation 96 % (92-99) Arterial Blood pH 7.26 (7.35-7.45) Arterial Blood pCO2 at Patient Temp 29 mmHg (35-46) Arterial Blood pO2 at Patient Temp 98 mmHg (65-108) Arterial Blood HCO3 13 mmol/L (21-28) Arterial Blood Base Excess -13 mmol/L (-3-3) FiO2 90 Influenza Type A Antigen Negative (NEGATIVE) Influenza Type B Antigen Negative (NEGATIVE) Group A Streptococcus Rapid Negative (NEGATIVE) Test 09/12/19 11:50 Platelet Count 112 x10^3/uL (140-400) Prothrombin Time 45.7 SEC (11.7-14.0) Prothromb Time International Ratio 4.9 (0.8-1.1) Activated Partial Thromboplast Time 43 SEC (24-38) Fibrinogen 258 mg/dL (200-440) D-Dimer (Kathia) > 20.00 ug/mlFEU Physical Exam HEENT: Neck Supple W Full Motion Chest: Symmetric LUNGS: Other (mechanical vent ) Heart: irregularly irregular (AFIB rate controlled) Abdomen: Other (soft ) Extremities: Other (2+ right hand and 1+ bilateral LE edema ) Neurology: other (intubated) Assessment Assessment 1. Multliorgan failure: CAP/ARDS, CHF, severe PEDRO, sepsis, shock liver 2. Acute respiratory failure: multifactorial as above. intubated/vent 3. AFIB with RVR: currently rate controlled. 4. Septic shock: BP improved. 5. Acute diastolic CHF: EF and LV systolic function normal. 6. Severe PEDRO with metabolic acidosis 7. Severe leukocytosis 8. Coagulopathy/progressive anemia and thrombocytopenia: INR 4.9. potential DIC Recommendations 1. Critically ill, Poor prognosis. Pressor support with CRRT, supportive care at this time 2. Monitor rhythm. Dig IV PRN, limit use with PEDRO 3. Ongoing antibiotic therapy 4. CBC/DIC panel ALEX SMILEY MD 09/12/19 1756: CARDIO Progress Notes Plan Plan Pt. seen and examined. 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 Supportive care from CV standpoint. Will follow along peripherally. Thanks LIBORIO LIN APRN Sep 12, 2019 15:20 ALEX SMILEY MD Sep 12, 2019 17:56
[2019-09-12] MEDS: POTASSIUM CHLORIDE 10 MEQ in DIALYSIS SOLUTION BGK 0/2.5 5,000 ML IV SCH ×10 (15:25→20:07)
[2019-09-12 16:52] LABS: ALBUMIN 2.4 g/dL (3.4-5.0); ALBUMIN/GLOBULIN RATIO 0.7 (1.0-1.7); CREATININE 3.9 mg/dL (0.7-1.3); MAGNESIUM 2.4 mg/dL (1.8-2.4); PHOSPHORUS 6.9 mg/dL (2.6-4.7); POTASSIUM 4.3 mmol/L (3.5-5.1); TOTAL BILIRUBIN 5.7 mg/dL (0.2-1.0)
--- NOTE | 2019-09-12 16:56 | PDOC2 ---
CONSULT Date of Consult Date of Consult DATE: 09/12/19 TIME: 16:39 Reason for consultation: DIC Consult: Hematology oncology, Dr. Howard Yates History of present illness: He is a 79-year-old previously healthy male who developed cough and sputum production and had symptoms for about 1 week, acute, worsening over time, moderate, associated with trouble breathing, and he was found to be in A. fib with RVR and treated w/ antibiotics due to his leukocytosis and pulmonary infiltrate, and anticoagulation for the A. fib though unfortunately he developed hemoptysis and hypoxia and was transferred to [facility] and has since been intubated and due to sepsis he has pressors on board and unfortunately shock liver and evidence of DIC and is on CRRT w/ lactic acidosis. Past medical history: Commute acquired pneumonia ARDS CHF Acute kidney injury Sepsis Fever Shock liver A. fib with RVR Coagulopathy DIC Anemia Rheumatoid arthritis self-treated with CBD oil prior to admit BPH Gout Past surgical history: Appendectomy Cataract surgery Right IJ hemodialysis catheter Allergies: No known drug allergies Medications: See attached list Social history: , Retired , no tobacco since , occasional alcohol, no drugs, CBD oil Family history: A son with cancer Review of systems: He is intubated and sedated and his tells me he had a cough and sputum production and progressive weakness for 1 week prior to admit, otherwise review of systems unobtainable, does have some upper extremity edema Physical exam: Vitals reviewed Gen.: elderly man intubated and sedated, resting in bed in no acute distress HEENT: mucous membranes moist, ETT in Neck: Supple, RIJ in Lymph nodes: No palpable lymphadenopathy neck or axilla though exam limited Lungs: Breathing comfortably on vent Heart: A fib, reg rate Abdomen: Soft, not obviously tender Extremities: No cyanosis, does have BUE edema Skin: No obvious rashes or skin breakdown on limited exam, oquendo for doppler at LE Neuro: sedate Psych: not obtainable Lab reviewed: Hemoglobin 7.3, platelets 92, had been 252, up to 112, white count 40.7 PTT 43 PTT 45.7 with an INR of 4.9 Fibrinogen 258 down from 699 Lactic acidosis 7.8 Creatinine 5.5 AST >6000 ALT 3921 T bili 3.9 D-dimer greater than 20 up from 4.43 group A strep negative Influenza negative Rads reviewed: Chest x-ray with ET tube 6 mm from lang, enteric tube, pulmonary interstitial thickening and/or edema, left basilar retrocardiac consolidation Case discussed with: His nurse and his family at bedside, records reviewed in [facility] including labs and radiology, please see note for summary details Assessment and Plan: He is a 79-year-old man previously relatively healthy other than rheumatoid arthritis that was not on immunosuppressive admitted for pneumonia with A. fib with RVR, lactic acidosis, shock liver, acute kidney injury on CRRT, resp failure intubated, sepsis on pressors and multiorgan failure Respiratory failure: Intubated, per pulmonary A. fib with RVR: Cardiology is involved Sepsis: ID is involved, multiple antibiotics, pressors Acute kidney injury: On CRRT, nephrology is involved DIC: Can transfuse for hemoglobin less than 7 (will give 1 unit now), would not give platelet transfusion unless platelets less than 10,000 spontaneously or with active bleeding, can give FFP for prolonged PTT (2 units now), can give vitamin K judiciously for elevated INR (1 mg now), with his shock liver injury it will take longer to recover, the main treatment is the underlying disease which he is being treated for with his multidisciplinary approach to sepsis, cryopreciptate can be given to keep fibrinogen greater than 100, currently fibrinogen is 258, would keep an eye on CBC and DIC panel and give transfusions as needed, if purpura fulminans developed could give protein C concentrate but would not use at this point due to bleeding risks, some poss bleeding orally... Prognosis: Poor with multiorgan failure, they decline a entry level marketing assistant visit at this time Thank you kindly for this consultation, Dr. Martinez will be covering as needed and tuesday, please call w/ ?s. Past Medical History Rheumatologic: Rheumatoid arthritis Renal/: Benign prostatic enlarg. Past Surgical History Past Surgical History: Cataract Removal Social History Lives: with Family Current Medications Current Medications Current Medications Amiodarone HCl 450 mg/Dextrose 259 ml @ 17 mls/hr CONT PRN IV SEE I/O RECORD Last administered on 09/11/19at 02:33; Start 09/10/19 at 09:00 Diltiazem HCl 125 mg/Dextrose 125 ml @ 0 mls/hr CONT PRN IV SEE I/O RECORD Last administered on 09/11/19at 05:40; Start 09/10/19 at 06:30 Lactobacillus Rhamnosus (Culturelle) 1 cap BID PO Last administered on 09/11/19at 21:16; Start 09/10/19 at 09:00; Stop 09/12/19 at 09:15; Status DC Ceftriaxone Sodium (Rocephin) 1 gm Q24H IVP Last administered on 09/10/19at 12:55; Start 09/10/19 at 12:00; Stop 09/10/19 at 13:35; Status DC Azithromycin (Zithromax) 250 mg DAILY PO Last administered on 09/10/19at 08:38; Start 09/10/19 at 09:00; Stop 09/10/19 at 13:35; Status DC Dutasteride (Avodart) 0.5 mg DAILY PO Last administered on 09/11/19at 12:23; Start 09/10/19 at 09:00 Naproxen (Naprosyn) 500 mg PRN BID PRN PO MODERATE PAIN 4-6; Start 09/10/19 at 06:30; Stop 09/12/19 at 11:01; Status DC Albuterol Sulfate (Ventolin Neb Soln) 2.5 mg RTQID NEB Last administered on 09/12/19at 15:21; Start 09/10/19 at 08:00 Methylprednisolone Sodium Succinate (SOLU-Medrol 40MG VIAL) 40 mg Q8HRS IV Last administered on 09/12/19at 13:52; Start 09/10/19 at 08:00 Sodium Chloride (Normal Saline Flush) 10 ml QSHIFT PRN IV AFTER MEDS AND BLOOD DRAWS; Start 09/10/19 at 07:00 Influenza Virus Vaccine Quadrival (Afluria Quad 2019-20 (3yr Up) Syringe) 0.5 ml ONCE ONCE VAX IM ; Start 09/11/19 at 09:00; Stop 09/11/19 at 09:01; Status DC Bisacodyl (Dulcolax Supp) 10 mg PRN DAILY PRN CO CONSTIPATION Last administered on 09/10/19at 10:00; Start 09/10/19 at 10:00 Lorazepam (Ativan Inj) 0.5 mg 1X ONCE IVP Last administered on 09/10/19at 11:10; Start 09/10/19 at 11:15; Stop 09/10/19 at 11:16; Status DC Lorazepam (Ativan Inj) 0.5 mg 1X ONCE IVP Last administered on 09/10/19at 11:48; Start 09/10/19 at 11:45; Stop 09/10/19 at 11:47; Status DC Morphine Sulfate (Morphine Sulfate) 5 mg 1X ONCE IV Last administered on 09/10/19at 11:55; Start 09/10/19 at 12:00; Stop 09/10/19 at 12:01; Status DC Morphine Sulfate (Morphine Sulfate) 4 mg 1X ONCE IV Last administered on 09/10/19at 12:56; Start 09/10/19 at 13:00; Stop 09/10/19 at 13:01; Status DC Vancomycin HCl 1 gm/Sodium Chloride 250 ml @ 250 mls/hr Q12H IV ; Start 09/10/19 at 13:30; Status UNV Piperacillin Sod/ Tazobactam Sod 3.375 gm/Sodium Chloride 50 ml @ 100 mls/hr Q6HRS IV Last administered on 09/11/19at 05:39; Start 09/10/19 at 14:00; Stop 09/11/19 at 08:20; Status DC Vancomycin HCl 1.5 gm/Sodium Chloride 500 ml @ 250 mls/hr 1X ONCE IV Last administered on 09/10/19at 16:39; Start 09/10/19 at 14:00; Stop 09/10/19 at 15:59; Status DC Vancomycin HCl (Vanco Per Pharmacy) 1 each PRN DAILY PRN MC SEE COMMENTS Last administered on 09/10/19at 16:55; Start 09/10/19 at 14:00; Stop 09/11/19 at 07:59; Status DC Furosemide (Lasix) 40 mg DAILY IVP ; Start 09/11/19 at 09:00; Stop 09/10/19 at 15:41; Status DC Furosemide (Lasix) 20 mg 1X ONCE IVP ; Start 09/10/19 at 15:45; Stop 09/10/19 at 15:46; Status DC Furosemide (Lasix) 40 mg 1X ONCE IVP Last administered on 09/10/19at 16:38; Start 09/10/19 at 15:45; Stop 09/10/19 at 15:46; Status DC Vancomycin HCl 1 gm/Sodium Chloride 250 ml @ 250 mls/hr Q24H IV ; Start 09/11/19 at 16:30; Stop 09/11/19 at 07:59; Status DC Vancomycin HCl (Vancomycin Trough Level) 1 each 1X ONCE MC ; Start 09/12/19 at 16:00; Stop 09/11/19 at 08:01; Status DC Morphine Sulfate (Morphine Sulfate) 4 mg PRN Q2HR PRN IV PAIN, elevated respirations Last administered on 09/11/19at 20:31; Start 09/10/19 at 21:15 Succinylcholine Chloride (Anectine) 200 mg STK-MED ONCE .ROUTE ; Start 09/11/19 at 08:09; Stop 09/11/19 at 08:09; Status DC Propofol 100 ml @ As Directed STK-MED ONCE IV ; Start 09/11/19 at 08:09; Stop 09/11/19 at 08:09; Status DC Sodium Bicarbonate 100 meq/Dextrose 1,100 ml @ 75 mls/hr [id number] IV Last administered on 09/12/19at 16:30; Start 09/11/19 at 09:00 Piperacillin Sod/ Tazobactam Sod 3.375 gm/Sodium Chloride 50 ml @ 100 mls/hr Q8HRS IV Last administered on 09/12/19at 13:51; Start 09/11/19 at 14:00 Levofloxacin/ Dextrose 100 ml @ 100 mls/hr 1X ONCE IV Last administered on 09/11/19at 12:39; Start 09/11/19 at 08:30; Stop 09/11/19 at 09:29; Status DC Levofloxacin/ Dextrose 50 ml @ 50 mls/hr Q24H IV Last administered on 09/11/19at 12:27; Start 09/12/19 at 09:00; Stop 09/11/19 at 16:31; Status DC Fentanyl Citrate 30 ml @ 0 mls/hr CONT PRN IV SEE PROTOCOL Last administered on 09/11/19at 11:26; Start 09/11/19 at 10:15 Propofol 100 ml @ 0 mls/hr CONT PRN IV SEE PROTOCOL; Start 09/11/19 at 10:15 Midazolam HCl 100 ml @ 0 mls/hr CONT PRN IV SEE PROTOCOL Last administered on 09/11/19at 11:30; Start 09/11/19 at 10:15 Norepinephrine Bitartrate 250 ml @ 13.81 mls/ hr CONT PRN IV SEE I/O RECORD Last administered on 09/12/19at 10:47; Start 09/11/19 at 10:45 Sodium Bicarbonate (Sodium Bicarb Adult 8.4% Syr) 50 meq STK-MED ONCE .ROUTE ; Start 09/11/19 at 10:49; Stop 09/11/19 at 10:50; Status DC Succinylcholine Chloride (Anectine) 200 mg STK-MED ONCE .ROUTE ; Start 09/11/19 at 10:57; Stop 09/11/19 at 10:57; Status DC Sodium Bicarbonate (Sodium Bicarb Adult 8.4% Syr) 100 meq 1X ONCE IV Last administered on 09/11/19at 11:28; Start 09/11/19 at 11:15; Stop 09/11/19 at 11:16; Status DC Vasopressin 40 unit/Dextrose 102 ml @ 6 mls/hr CONT PRN IV SEE I/O RECORD Last administered on 09/12/19at 16:31; Start 09/11/19 at 11:30 Sodium Chloride 1,000 ml @ 1,770 mls/hr Q34M IV Last administered on 09/11/19at 12:28; Start 09/11/19 at 11:45; Stop 09/11/19 at 12:45; Status DC Lidocaine HCl (Buffered Lidocaine 1%) 3 ml STK-MED ONCE .ROUTE ; Start 09/11/19 at 15:23; Stop 09/11/19 at 15:23; Status DC Epinephrine HCl 4 mg/Sodium Chloride 254 ml @ 28.061 mls/ hr CONT PRN IV SEE I/O RECORD; Start 09/11/19 at 15:45 Levofloxacin/ Dextrose 100 ml @ 100 mls/hr Q24H IV Last administered on 09/12/19at 09:39; Start 09/12/19 at 09:00 Lidocaine HCl (Buffered Lidocaine 1%) 3 ml 1X ONCE INJ Last administered on 09/11/19at 17:14; Start 09/11/19 at 17:15; Stop 09/11/19 at 17:16; Status DC Sodium Chloride 500 ml @ 500 mls/hr 1X ONCE IV Last administered on 09/11at 21:21; Start 09/11/19 at 21:15; Stop 09/11/19 at 22:14; Status DC Calcium Chloride 12.5 meq/ Bicarbonate Dialysis Soln w/ out KCl 5,008.9286 ml @ 1,000 mls/hr Q5H1M IV ; Start 09/12/19 at 09:00; Stop 09/12/19 at 12:18; Status DC Calcium Chloride 12.5 meq/ Bicarbonate Dialysis Soln w/ out KCl 5,008.9286 ml @ 1,000 mls/hr Q5H1M IV ; Start 09/12/19 at 09:00; Stop 09/12/19 at 10:00; Status DC Calcium Chloride 12.5 meq/ Bicarbonate Dialysis Soln w/ out KCl 5,008.9286 ml @ 1,000 mls/hr Q5H1M IV ; Start 09/12/19 at 09:00; Stop 09/12/19 at 10:02; Status DC Lidocaine HCl (Lta Kit) 4 ml STK-MED ONCE TP ; Start 09/10/19 at 16:00; Stop 09/12/19 at 09:29; Status DC Calcium Chloride 12.5 meq/ Bicarbonate Dialysis Soln w/ out KCl 5,008.9286 ml @ 1,500 mls/hr Q3H21M IV ; Start 09/12/19 at 12:00; Stop 09/12/19 at 11:28; Status DC Calcium Chloride 12.5 meq/ Bicarbonate Dialysis Soln w/ out KCl 5,008.9286 ml @ 1,500 mls/hr Q3H21M IV ; Start 09/12/19 at 12:00; Stop 09/12/19 at 11:30; Status DC Pantoprazole Sodium (PROTONIX VIAL for IV PUSH) 40 mg DAILYAC IVP Last administered on 09/12/19at 12:35; Start 09/12/19 at 12:00 Calcium Chloride 12.5 meq/ Bicarbonate Dialysis Soln w/ out KCl 5,008.9286 ml @ 1,000 mls/hr Q5H1M IV ; Start 09/12/19 at 13:00; Stop 09/12/19 at 12:18; Status DC Calcium Chloride 12.5 meq/ Bicarbonate Dialysis Soln w/ out KCl 5,008.9286 ml @ 1,000 mls/hr Q5H1M IV ; Start 09/12/19 at 13:00; Stop 09/12/19 at 12:18; Status DC Potassium Chloride 10 meq/ Bicarbonate Dialysis Soln w/ out KCl 5,005 ml @ 1,000 mls/hr Q5H1M IV Last administered on 09/12/19at 15:25; Start 09/12/19 at 13:00 Potassium Chloride 10 meq/ Bicarbonate Dialysis Soln w/ out KCl 5,005 ml @ 1,000 mls/hr Q5H1M IV Last administered on 09/12/19at 15:25; Start 09/12/19 at 12:30 Potassium Chloride 10 meq/ Bicarbonate Dialysis Soln w/ out KCl 5,005 ml @ 1,000 mls/hr Q5H1M IV Last administered on 09/12/19at 15:25; Start 09/12/19 at 13:00 Fentanyl Citrate (Fentanyl 600 Mcg/30 ml NURSING PROGRAM CHAIR) 600 mcg STK-MED ONCE IV ; Start 1 at 11:28; Stop 09/12/19 at 15:46; Status DC Phytonadione 1 mg/ Dextrose 50.1 ml @ 102 mls/hr 1X ONCE IV ; Start 09/12/19 at 16:45; Stop 09/12/19 at 17:14; Status UNV Active Scripts Active Reported Naproxen 500 Mg Tablet 1 Tab PO PRN BID PRN 30 Days Avodart (Dutasteride) 0.5 Mg Capsule 1 Cap PO DAILY Allergies Allergies: Coded Allergies: No Known Drug Allergies (Unverified , 09/10/19) Vitals VITALS Vital Signs Date Time Temp Pulse Resp B/P (MAP) Pulse Ox O2 Delivery O2 Flow Rate FiO2 09/12/19 16:02 Mechanical Ventilator 09/12/19 16:00 79 30 146/64 (91) 98 09/12/19 12:00 97.5 97.5 09/11/19 11:56 15.0 Labs Labs Laboratory Tests Test 09/11/19 05:15 09/11/19 07:00 09/11/19 08:00 09/11/19 09:25 Sodium Level 136 mmol/L (136-145) Potassium Level 5.4 mmol/L (3.5-5.1) Chloride Level 98 mmol/L (98-107) Carbon Dioxide Level 14 mmol/L (21-32) Anion Gap 24 (6-14) Blood Urea Nitrogen 58 mg/dL (8-26) Creatinine 3.1 mg/dL (0.7-1.3) Estimated GFR (Cockcroft-Gault) 19.6 BUN/Creatinine Ratio 19 (6-20) Glucose Level 212 mg/dL (70-99) Calcium Level 8.7 mg/dL (8.5-10.1) Total Bilirubin 2.4 mg/dL (0.2-1.0) Aspartate Amino Transf (AST/SGOT) 2970 U/L (15-37) Alanine Aminotransferase (ALT/SGPT) 2225 U/L (16-63) Alkaline Phosphatase 111 U/L (46-116) Total Protein 7.2 g/dL (6.4-8.2) Albumin 3.2 g/dL (3.4-5.0) Albumin/Globulin Ratio 0.8 (1.0-1.7) White Blood Count 32.3 x10^3/uL (4.0-11.0) Red Blood Count 4.79 x10^6/uL (4.30-5.70) Hemoglobin 10.8 g/dL (13.0-17.5) Hematocrit 34.8 % (39.0-53.0) Mean Corpuscular Volume 73 fL (79-100) Mean Corpuscular Hemoglobin 23 pg (25-35) Mean Corpuscular Hemoglobin Concent 31 g/dL (31-37) Red Cell Distribution Width 15.9 % (11.5-14.5) Platelet Count 172 x10^3/uL (140-400) O2 Saturation 93 % (92-99) 82 % (92-99) Arterial Blood pH 7.25 (7.35-7.45) 6.99 (7.35-7.45) Arterial Blood pCO2 at Patient Temp 28 mmHg (35-46) 50 mmHg (35-46) Arterial Blood pO2 at Patient Temp 82 mmHg (65-108) 74 mmHg (65-108) Arterial Blood HCO3 12 mmol/L (21-28) 12 mmol/L (21-28) Arterial Blood Base Excess -14 mmol/L (-3-3) -19 mmol/L (-3-3) FiO2 40 100 Test 09/11/19 14:15 09/12/19 05:30 09/12/19 06:40 09/12/19 08:00 O2 Saturation 87 % (92-99) 96 % (92-99) Arterial Blood pH 7.13 (7.35-7.45) 7.26 (7.35-7.45) Arterial Blood pCO2 at Patient Temp 41 mmHg (35-46) 29 mmHg (35-46) Arterial Blood pO2 at Patient Temp 72 mmHg (65-108) 98 mmHg (65-108) Arterial Blood HCO3 13 mmol/L (21-28) 13 mmol/L (21-28) Arterial Blood Base Excess -15 mmol/L (-3-3) -13 mmol/L (-3-3) FiO2 100 90 White Blood Count 40.7 x10^3/uL (4.0-11.0) Red Blood Count 3.25 x10^6/uL (4.30-5.70) Hemoglobin 7.3 g/dL (13.0-17.5) Hematocrit 23.8 % (39.0-53.0) Mean Corpuscular Volume 73 fL (79-100) Mean Corpuscular Hemoglobin 23 pg (25-35) Mean Corpuscular Hemoglobin Concent 31 g/dL (31-37) Red Cell Distribution Width 16.0 % (11.5-14.5) Platelet Count 92 x10^3/uL (140-400) Sodium Level 137 mmol/L (136-145) Potassium Level 5.7 mmol/L (3.5-5.1) Chloride Level 98 mmol/L (98-107) Carbon Dioxide Level 17 mmol/L (21-32) Anion Gap 22 (6-14) Blood Urea Nitrogen 80 mg/dL (8-26) Creatinine 5.5 mg/dL (0.7-1.3) Estimated GFR (Cockcroft-Gault) 10.1 BUN/Creatinine Ratio 15 (6-20) Glucose Level 163 mg/dL (70-99) Calcium Level 7.0 mg/dL (8.5-10.1) Total Bilirubin 3.9 mg/dL (0.2-1.0) Aspartate Amino Transf (AST/SGOT) 6667 U/L (15-37) Alanine Aminotransferase (ALT/SGPT) 3921 U/L (16-63) Alkaline Phosphatase 93 U/L (46-116) Total Protein 5.6 g/dL (6.4-8.2) Albumin 2.2 g/dL (3.4-5.0) Albumin/Globulin Ratio 0.6 (1.0-1.7) Test 09/12/19 09:52 09/12/19 11:50 Influenza Type A Antigen Negative (NEGATIVE) Influenza Type B Antigen Negative (NEGATIVE) Group A Streptococcus Rapid Negative (NEGATIVE) Platelet Count 112 x10^3/uL (140-400) Prothrombin Time 45.7 SEC (11.7-14.0) Prothromb Time International Ratio 4.9 (0.8-1.1) Activated Partial Thromboplast Time 43 SEC (24-38) Fibrinogen 258 mg/dL (200-440) D-Dimer (Kathia) > 20.00 ug/mlFEU Laboratory Tests Test 09/12/19 05:30 09/12/19 06:40 09/12/19 08:00 09/12/19 09:52 White Blood Count 40.7 x10^3/uL (4.0-11.0) Red Blood Count 3.25 x10^6/uL (4.30-5.70) Hemoglobin 7.3 g/dL (13.0-17.5) Hematocrit 23.8 % (39.0-53.0) Mean Corpuscular Volume 73 fL (79-100) Mean Corpuscular Hemoglobin 23 pg (25-35) Mean Corpuscular Hemoglobin Concent 31 g/dL (31-37) Red Cell Distribution Width 16.0 % (11.5-14.5) Platelet Count 92 x10^3/uL (140-400) Sodium Level 137 mmol/L (136-145) Potassium Level 5.7 mmol/L (3.5-5.1) Chloride Level 98 mmol/L (98-107) Carbon Dioxide Level 17 mmol/L (21-32) Anion Gap 22 (6-14) Blood Urea Nitrogen 80 mg/dL (8-26) Creatinine 5.5 mg/dL (0.7-1.3) Estimated GFR (Cockcroft-Gault) 10.1 BUN/Creatinine Ratio 15 (6-20) Glucose Level 163 mg/dL (70-99) Calcium Level 7.0 mg/dL (8.5-10.1) Total Bilirubin 3.9 mg/dL (0.2-1.0) Aspartate Amino Transf (AST/SGOT) 6667 U/L (15-37) Alanine Aminotransferase (ALT/SGPT) 3921 U/L (16-63) Alkaline Phosphatase 93 U/L (46-116) Total Protein 5.6 g/dL (6.4-8.2) Albumin 2.2 g/dL (3.4-5.0) Albumin/Globulin Ratio 0.6 (1.0-1.7) O2 Saturation 96 % (92-99) Arterial Blood pH 7.26 (7.35-7.45) Arterial Blood pCO2 at Patient Temp 29 mmHg (35-46) Arterial Blood pO2 at Patient Temp 98 mmHg (65-108) Arterial Blood HCO3 13 mmol/L (21-28) Arterial Blood Base Excess -13 mmol/L (-3-3) FiO2 90 Influenza Type A Antigen Negative (NEGATIVE) Influenza Type B Antigen Negative (NEGATIVE) Group A Streptococcus Rapid Negative (NEGATIVE) Test 09/12/19 11:50 Platelet Count 112 x10^3/uL (140-400) Prothrombin Time 45.7 SEC (11.7-14.0) Prothromb Time International Ratio 4.9 (0.8-1.1) Activated Partial Thromboplast Time 43 SEC (24-38) Fibrinogen 258 mg/dL (200-440) D-Dimer (Kathia) > 20.00 ug/mlHOWARD PINO MD Sep 12, 2019 16:56
[2019-09-12] MEDS ORDERED: DEXTROSE 5% IV ONE (17:00)
[2019-09-12] MEDS ORDERED: PHYTONADIONE IV ONE (17:00)
--- NOTE | 2019-09-12 18:32 | NUR ---
passive range of motion performed on patient. Rectal temp probe inserted and temp 93.7. Bear Hugger applied and warm blankets; blood warm on CRRT machine increased
--- NOTE | 2019-09-12 22:27 | NUR ---
See vital signs spreadsheet for transfusion vital signs.
[2019-09-12 22:49] LABS: ALBUMIN 2.3 g/dL (3.4-5.0); ALBUMIN/GLOBULIN RATIO 0.7 (1.0-1.7); CREATININE 3.1 mg/dL (0.7-1.3); GFR 19.6; MAGNESIUM 2.5 mg/dL (1.8-2.4); PHOSPHORUS 5.7 mg/dL (2.6-4.7); POTASSIUM 4.2 mmol/L (3.5-5.1); TOTAL BILIRUBIN 6.8 mg/dL (0.2-1.0); TOTAL PROTEIN 5.7 g/dL (6.4-8.2)
[2019-09-13] VITALS (36 sets, daily range): BP systolic 90–146; BP diastolic 42–68
[2019-09-13] MEDS: POTASSIUM CHLORIDE 10 MEQ in DIALYSIS SOLUTION BGK 0/2.5 5,000 ML IV SCH ×6 (00:36→06:05)
[2019-09-13 04:22] LABS: HEMATOCRIT 32.8 % (39.0-53.0); HEMOGLOBIN 10.7 g/dL (13.0-17.5); RED BLOOD COUNT 4.52 x10^6/uL (4.30-5.70)
[2019-09-13 04:26] LABS: WHITE BLOOD COUNT 47.6 x10^3/uL (4.0-11.0)
[2019-09-13 04:29] LABS: PROTHROMBIN TIME PATIENT 37.3 SEC (11.7-14.0)
[2019-09-13 04:36] LABS: ALBUMIN 2.4 g/dL (3.4-5.0); ALBUMIN/GLOBULIN RATIO 0.8 (1.0-1.7); CALCIUM 7.2 mg/dL (8.5-10.1); CREATININE 2.6 mg/dL (0.7-1.3); POTASSIUM 3.9 mmol/L (3.5-5.1); TOTAL PROTEIN 5.6 g/dL (6.4-8.2)
[2019-09-13] MEDS: PIPERACILLIN/TAZOBACTAM 3.375 GM in IV NORMAL SALINE 50ML 50 ML IV SCH ×3 (05:30→13:40)
[2019-09-13] MEDS: methylPREDNISolone SOD SUCC PF 40 MG/ML VIAL. IV SCH ×3 (05:30→22:28)
[2019-09-13 05:59] LABS: MAGNESIUM 2.6 mg/dL (1.8-2.4); PHOSPHORUS 4.6 mg/dL (2.6-4.7)
[2019-09-13] MEDS: SODIUM BICARBONATE VIAL 100 MEQ in IV DEXTROSE 5% 1,000 ML IV SCH (06:03)
[2019-09-13] MEDS: ALBUTEROL SULFATE 2.5 MG/3 ML NEBU. NEB SCH ×4 (07:43→19:50)
[2019-09-13 07:52] LABS: BASE EXCESS ABG -5 mmol/L (-3-3); HCO3 ABG 18 mmol/L (21-28); PCO2 ABG 29 mmHg (35-46); PO2 ABG 158 mmHg (65-108); SAT O2 ABG 99 % (92-99)
[2019-09-13 07:55] LABS: FIO2 ABG 60
--- NOTE | 2019-09-13 07:55 | PDOC ---
Infectious Disease Note Subjective Subjective sedated on vent ROS ROS no n/v/d/fever Vital Sign Vital Signs Vital Signs Date Time Temp Pulse Resp B/P (MAP) Pulse Ox O2 Delivery O2 Flow Rate FiO2 09/13/19 07:43 100 Ventilator 09/13/19 06:00 95.0 86 30 126/60 (82) 95.0 Physical Exam PHYSICAL EXAM GENERAL: orally intubated on vent VITAL SIGNS: stable HEENT: Both pupils are round and reacting. No conjunctival lesion, no lesion in the mouth. NECK: Supple, no JVP, no lymphadenopathy. LUNGS: Clear. HEART: S1, S2 regular. ABDOMEN: Soft, nontender, no organomegaly. EXTREMITIES: No edema, cyanosis. SKIN: Unremarkable. NEUROLOGIC: sedated intubated Labs Lab Laboratory Tests Test 09/12/19 08:00 09/12/19 09:52 09/12/19 11:50 09/12/19 16:15 O2 Saturation 96 % (92-99) Arterial Blood pH 7.26 (7.35-7.45) Arterial Blood pCO2 at Patient Temp 29 mmHg (35-46) Arterial Blood pO2 at Patient Temp 98 mmHg (65-108) Arterial Blood HCO3 13 mmol/L (21-28) Arterial Blood Base Excess -13 mmol/L (-3-3) FiO2 90 Influenza Type A Antigen Negative (NEGATIVE) Influenza Type B Antigen Negative (NEGATIVE) Group A Streptococcus Rapid Negative (NEGATIVE) Platelet Count 112 x10^3/uL (140-400) Prothrombin Time 45.7 SEC (11.7-14.0) Prothromb Time International Ratio 4.9 (0.8-1.1) Activated Partial Thromboplast Time 43 SEC (24-38) Fibrinogen 258 mg/dL (200-440) D-Dimer (Kathia) > 20.00 ug/mlFEU Sodium Level 136 mmol/L (136-145) Potassium Level 4.3 mmol/L (3.5-5.1) Chloride Level 98 mmol/L (98-107) Carbon Dioxide Level 18 mmol/L (21-32) Anion Gap 20 (6-14) Blood Urea Nitrogen 60 mg/dL (8-26) Creatinine 3.9 mg/dL (0.7-1.3) Estimated GFR (Cockcroft-Gault) 15.0 BUN/Creatinine Ratio 15 (6-20) Glucose Level 174 mg/dL (70-99) Calcium Level 7.0 mg/dL (8.5-10.1) Phosphorus Level 6.9 mg/dL (2.6-4.7) Magnesium Level 2.4 mg/dL (1.8-2.4) Total Bilirubin 5.7 mg/dL (0.2-1.0) Aspartate Amino Transf (AST/SGOT) 4963 U/L (15-37) Alanine Aminotransferase (ALT/SGPT) 3806 U/L (16-63) Alkaline Phosphatase 116 U/L (46-116) Total Protein 6.0 g/dL (6.4-8.2) Albumin 2.4 g/dL (3.4-5.0) Albumin/Globulin Ratio 0.7 (1.0-1.7) Test 09/12/19 22:15 09/13/19 04:10 Sodium Level 137 mmol/L (136-145) 134 mmol/L (136-145) Potassium Level 4.2 mmol/L (3.5-5.1) 3.9 mmol/L (3.5-5.1) Chloride Level 100 mmol/L (98-107) 100 mmol/L (98-107) Carbon Dioxide Level 20 mmol/L (21-32) 22 mmol/L (21-32) Anion Gap 17 (6-14) 12 (6-14) Blood Urea Nitrogen 46 mg/dL (8-26) 40 mg/dL (8-26) Creatinine 3.1 mg/dL (0.7-1.3) 2.6 mg/dL (0.7-1.3) Estimated GFR (Cockcroft-Gault) 19.6 24.0 BUN/Creatinine Ratio 15 (6-20) 15 (6-20) Glucose Level 177 mg/dL (70-99) 176 mg/dL (70-99) Calcium Level 7.0 mg/dL (8.5-10.1) 7.2 mg/dL (8.5-10.1) Phosphorus Level 5.7 mg/dL (2.6-4.7) 4.6 mg/dL (2.6-4.7) Magnesium Level 2.5 mg/dL (1.8-2.4) 2.6 mg/dL (1.8-2.4) Total Bilirubin 6.8 mg/dL (0.2-1.0) 8.0 mg/dL (0.2-1.0) Aspartate Amino Transf (AST/SGOT) 4186 U/L (15-37) 3393 U/L (15-37) Alanine Aminotransferase (ALT/SGPT) 3443 U/L (16-63) 3008 U/L (16-63) Alkaline Phosphatase 119 U/L (46-116) 124 U/L (46-116) Total Protein 5.7 g/dL (6.4-8.2) 5.6 g/dL (6.4-8.2) Albumin 2.3 g/dL (3.4-5.0) 2.4 g/dL (3.4-5.0) Albumin/Globulin Ratio 0.7 (1.0-1.7) 0.8 (1.0-1.7) White Blood Count 47.6 x10^3/uL (4.0-11.0) Red Blood Count 4.52 x10^6/uL (4.30-5.70) Hemoglobin 10.7 g/dL (13.0-17.5) Hematocrit 32.8 % (39.0-53.0) Mean Corpuscular Volume 73 fL (79-100) Mean Corpuscular Hemoglobin 24 pg (25-35) Mean Corpuscular Hemoglobin Concent 33 g/dL (31-37) Red Cell Distribution Width 18.0 % (11.5-14.5) Platelet Count 79 x10^3/uL (140-400) Prothrombin Time 37.3 SEC (11.7-14.0) Prothromb Time International Ratio 3.8 (0.8-1.1) Micro BC neg from [place] so far Objective Assessment 1. Respiratory failure. 2. Pulmonary infiltrate. There is no cardiac history. Most likely to be all respiratory infection with possible even going into acute respiratory distress syndrome. 3. Leukocytosis. 4. Acute kidney injury, multifactorial from hypotension and being sick. 5. History of rheumatoid arthritis, had been on naproxen. 6. Circulatory failure. Plan Plan of Care cont levaquin and zosyn,, add dapto cont supportive care check cultures workup d/w in detail prognosis poor VICKI GAN MD Sep 13, 2019 07:55
--- NOTE | 2019-09-13 08:36 | PDOC ---
PROGRESS NOTES Subjective Subjective HPI - f/u of DIC ROS - on vent Objective Objective Vital Signs Date Time Temp Pulse Resp B/P (MAP) Pulse Ox O2 Delivery O2 Flow Rate FiO2 09/13/19 07:54 98 09/13/19 07:43 Ventilator 09/13/19 06:00 95.0 86 30 126/60 (82) 95.0 09/11/19 11:56 15.0 Intake and Output 09/13/19 07:00 Intake Total 3959.78 ml Output Total 103 ml Balance 3856.78 ml Intake Oral 0 ml IV Total 2499.78 ml Blood Product 910 ml Blood Product IV Normal Saline Flush 550 ml Output Urine Total 3 ml Gastric Drainage Total 100 ml Physical Exam Heart: Normal S1, Normal S2 General: No acute distress Neuro: Other (sedated on vent) Assessment Assessment Assessment and Plan: He is a 79-year-old man previously relatively healthy other than rheumatoid arthritis that was not on immunosuppressive admitted for pneumonia with A. fib with RVR, lactic acidosis, shock liver, acute kidney injury on CRRT, resp failure intubated, sepsis on pressors and multiorgan failure 1. DIC: Can transfuse for hemoglobin less than 7 (s/p 1 unit 09/12/19), would not give platelet transfusion unless platelets less than 10,000 spontaneously or with active bleeding, can give FFP for prolonged PTT (s/p 2 units 09/12/19), can give vitamin K judiciously for elevated INR (s/p 1 mg 09/12/19), with his shock liver injury it will take longer to recover, the main treatment is the underlying disease which he is being treated for with his multidisciplinary approach to sepsis, cryopreciptate can be given to keep fibrinogen greater than 100, currently fibrinogen is 258, would keep an eye on CBC and DIC panel and give transfusions as needed. Plt worse at 79 on 09/13/19. 2. Leukocytosis - reactive, monitor. 13% bands suggestive of infectious etiology. 3. Respiratory failure: Intubated, per pulmonary 4. A. fib with RVR: Cardiology is involved 5. Sepsis: ID is involved, multiple antibiotics, pressors. I d/w Dr Loza. 6. Acute kidney injury: On CRRT, nephrology is involved 7. Prognosis: Poor with multiorgan failure Comment Review of Relevant I have reviewed the following items dionicio (where applicable) has been applied. Labs Laboratory Tests Test 09/11/19 09:25 09/11/19 14:15 09/12/19 05:30 09/12/19 06:40 O2 Saturation 82 % (92-99) 87 % (92-99) Arterial Blood pH 6.99 (7.35-7.45) 7.13 (7.35-7.45) Arterial Blood pCO2 at Patient Temp 50 mmHg (35-46) 41 mmHg (35-46) Arterial Blood pO2 at Patient Temp 74 mmHg (65-108) 72 mmHg (65-108) Arterial Blood HCO3 12 mmol/L (21-28) 13 mmol/L (21-28) Arterial Blood Base Excess -19 mmol/L (-3-3) -15 mmol/L (-3-3) FiO2 100 100 White Blood Count 40.7 x10^3/uL (4.0-11.0) Red Blood Count 3.25 x10^6/uL (4.30-5.70) Hemoglobin 7.3 g/dL (13.0-17.5) Hematocrit 23.8 % (39.0-53.0) Mean Corpuscular Volume 73 fL (79-100) Mean Corpuscular Hemoglobin 23 pg (25-35) Mean Corpuscular Hemoglobin Concent 31 g/dL (31-37) Red Cell Distribution Width 16.0 % (11.5-14.5) Platelet Count 92 x10^3/uL (140-400) Sodium Level 137 mmol/L (136-145) Potassium Level 5.7 mmol/L (3.5-5.1) Chloride Level 98 mmol/L (98-107) Carbon Dioxide Level 17 mmol/L (21-32) Anion Gap 22 (6-14) Blood Urea Nitrogen 80 mg/dL (8-26) Creatinine 5.5 mg/dL (0.7-1.3) Estimated GFR (Cockcroft-Gault) 10.1 BUN/Creatinine Ratio 15 (6-20) Glucose Level 163 mg/dL (70-99) Calcium Level 7.0 mg/dL (8.5-10.1) Total Bilirubin 3.9 mg/dL (0.2-1.0) Aspartate Amino Transf (AST/SGOT) 6667 U/L (15-37) Alanine Aminotransferase (ALT/SGPT) 3921 U/L (16-63) Alkaline Phosphatase 93 U/L (46-116) Total Protein 5.6 g/dL (6.4-8.2) Albumin 2.2 g/dL (3.4-5.0) Albumin/Globulin Ratio 0.6 (1.0-1.7) Test 09/12/19 08:00 09/12/19 09:52 09/12/19 11:50 09/12/19 16:15 O2 Saturation 96 % (92-99) Arterial Blood pH 7.26 (7.35-7.45) Arterial Blood pCO2 at Patient Temp 29 mmHg (35-46) Arterial Blood pO2 at Patient Temp 98 mmHg (65-108) Arterial Blood HCO3 13 mmol/L (21-28) Arterial Blood Base Excess -13 mmol/L (-3-3) FiO2 90 Influenza Type A Antigen Negative (NEGATIVE) Influenza Type B Antigen Negative (NEGATIVE) Group A Streptococcus Rapid Negative (NEGATIVE) Platelet Count 112 x10^3/uL (140-400) Prothrombin Time 45.7 SEC (11.7-14.0) Prothromb Time International Ratio 4.9 (0.8-1.1) Activated Partial Thromboplast Time 43 SEC (24-38) Fibrinogen 258 mg/dL (200-440) D-Dimer (Kathia) > 20.00 ug/mlFEU Sodium Level 136 mmol/L (136-145) Potassium Level 4.3 mmol/L (3.5-5.1) Chloride Level 98 mmol/L (98-107) Carbon Dioxide Level 18 mmol/L (21-32) Anion Gap 20 (6-14) Blood Urea Nitrogen 60 mg/dL (8-26) Creatinine 3.9 mg/dL (0.7-1.3) Estimated GFR (Cockcroft-Gault) 15.0 BUN/Creatinine Ratio 15 (6-20) Glucose Level 174 mg/dL (70-99) Calcium Level 7.0 mg/dL (8.5-10.1) Phosphorus Level 6.9 mg/dL (2.6-4.7) Magnesium Level 2.4 mg/dL (1.8-2.4) Total Bilirubin 5.7 mg/dL (0.2-1.0) Aspartate Amino Transf (AST/SGOT) 4963 U/L (15-37) Alanine Aminotransferase (ALT/SGPT) 3806 U/L (16-63) Alkaline Phosphatase 116 U/L (46-116) Total Protein 6.0 g/dL (6.4-8.2) Albumin 2.4 g/dL (3.4-5.0) Albumin/Globulin Ratio 0.7 (1.0-1.7) Test 09/12/19 22:15 09/13/19 04:10 09/13/19 07:50 Sodium Level 137 mmol/L (136-145) 134 mmol/L (136-145) Potassium Level 4.2 mmol/L (3.5-5.1) 3.9 mmol/L (3.5-5.1) Chloride Level 100 mmol/L (98-107) 100 mmol/L (98-107) Carbon Dioxide Level 20 mmol/L (21-32) 22 mmol/L (21-32) Anion Gap 17 (6-14) 12 (6-14) Blood Urea Nitrogen 46 mg/dL (8-26) 40 mg/dL (8-26) Creatinine 3.1 mg/dL (0.7-1.3) 2.6 mg/dL (0.7-1.3) Estimated GFR (Cockcroft-Gault) 19.6 24.0 BUN/Creatinine Ratio 15 (6-20) 15 (6-20) Glucose Level 177 mg/dL (70-99) 176 mg/dL (70-99) Calcium Level 7.0 mg/dL (8.5-10.1) 7.2 mg/dL (8.5-10.1) Phosphorus Level 5.7 mg/dL (2.6-4.7) 4.6 mg/dL (2.6-4.7) Magnesium Level 2.5 mg/dL (1.8-2.4) 2.6 mg/dL (1.8-2.4) Total Bilirubin 6.8 mg/dL (0.2-1.0) 8.0 mg/dL (0.2-1.0) Aspartate Amino Transf (AST/SGOT) 4186 U/L (15-37) 3393 U/L (15-37) Alanine Aminotransferase (ALT/SGPT) 3443 U/L (16-63) 3008 U/L (16-63) Alkaline Phosphatase 119 U/L (46-116) 124 U/L (46-116) Total Protein 5.7 g/dL (6.4-8.2) 5.6 g/dL (6.4-8.2) Albumin 2.3 g/dL (3.4-5.0) 2.4 g/dL (3.4-5.0) Albumin/Globulin Ratio 0.7 (1.0-1.7) 0.8 (1.0-1.7) White Blood Count 47.6 x10^3/uL (4.0-11.0) Red Blood Count 4.52 x10^6/uL (4.30-5.70) Hemoglobin 10.7 g/dL (13.0-17.5) Hematocrit 32.8 % (39.0-53.0) Mean Corpuscular Volume 73 fL (79-100) Mean Corpuscular Hemoglobin 24 pg (25-35) Mean Corpuscular Hemoglobin Concent 33 g/dL (31-37) Red Cell Distribution Width 18.0 % (11.5-14.5) Platelet Count 79 x10^3/uL (140-400) Prothrombin Time 37.3 SEC (11.7-14.0) Prothromb Time International Ratio 3.8 (0.8-1.1) O2 Saturation 99 % (92-99) Arterial Blood pH 7.43 (7.35-7.45) Arterial Blood pCO2 at Patient Temp 29 mmHg (35-46) Arterial Blood pO2 at Patient Temp 158 mmHg (65-108) Arterial Blood HCO3 18 mmol/L (21-28) Arterial Blood Base Excess -5 mmol/L (-3-3) FiO2 60 Laboratory Tests Test 09/12/19 09:52 09/12/19 11:50 09/12/19 16:15 09/12/19 22:15 Influenza Type A Antigen Negative (NEGATIVE) Influenza Type B Antigen Negative (NEGATIVE) Group A Streptococcus Rapid Negative (NEGATIVE) Platelet Count 112 x10^3/uL (140-400) Prothrombin Time 45.7 SEC (11.7-14.0) Prothromb Time International Ratio 4.9 (0.8-1.1) Activated Partial Thromboplast Time 43 SEC (24-38) Fibrinogen 258 mg/dL (200-440) D-Dimer (Kathia) > 20.00 ug/mlFEU Sodium Level 136 mmol/L (136-145) 137 mmol/L (136-145) Potassium Level 4.3 mmol/L (3.5-5.1) 4.2 mmol/L (3.5-5.1) Chloride Level 98 mmol/L (98-107) 100 mmol/L (98-107) Carbon Dioxide Level 18 mmol/L (21-32) 20 mmol/L (21-32) Anion Gap 20 (6-14) 17 (6-14) Blood Urea Nitrogen 60 mg/dL (8-26) 46 mg/dL (8-26) Creatinine 3.9 mg/dL (0.7-1.3) 3.1 mg/dL (0.7-1.3) Estimated GFR (Cockcroft-Gault) 15.0 19.6 BUN/Creatinine Ratio 15 (6-20) 15 (6-20) Glucose Level 174 mg/dL (70-99) 177 mg/dL (70-99) Calcium Level 7.0 mg/dL (8.5-10.1) 7.0 mg/dL (8.5-10.1) Phosphorus Level 6.9 mg/dL (2.6-4.7) 5.7 mg/dL (2.6-4.7) Magnesium Level 2.4 mg/dL (1.8-2.4) 2.5 mg/dL (1.8-2.4) Total Bilirubin 5.7 mg/dL (0.2-1.0) 6.8 mg/dL (0.2-1.0) Aspartate Amino Transf (AST/SGOT) 4963 U/L (15-37) 4186 U/L (15-37) Alanine Aminotransferase (ALT/SGPT) 3806 U/L (16-63) 3443 U/L (16-63) Alkaline Phosphatase 116 U/L (46-116) 119 U/L (46-116) Total Protein 6.0 g/dL (6.4-8.2) 5.7 g/dL (6.4-8.2) Albumin 2.4 g/dL (3.4-5.0) 2.3 g/dL (3.4-5.0) Albumin/Globulin Ratio 0.7 (1.0-1.7) 0.7 (1.0-1.7) Test 09/13/19 04:10 09/13/19 07:50 White Blood Count 47.6 x10^3/uL (4.0-11.0) Red Blood Count 4.52 x10^6/uL (4.30-5.70) Hemoglobin 10.7 g/dL (13.0-17.5) Hematocrit 32.8 % (39.0-53.0) Mean Corpuscular Volume 73 fL (79-100) Mean Corpuscular Hemoglobin 24 pg (25-35) Mean Corpuscular Hemoglobin Concent 33 g/dL (31-37) Red Cell Distribution Width 18.0 % (11.5-14.5) Platelet Count 79 x10^3/uL (140-400) Prothrombin Time 37.3 SEC (11.7-14.0) Prothromb Time International Ratio 3.8 (0.8-1.1) Sodium Level 134 mmol/L (136-145) Potassium Level 3.9 mmol/L (3.5-5.1) Chloride Level 100 mmol/L (98-107) Carbon Dioxide Level 22 mmol/L (21-32) Anion Gap 12 (6-14) Blood Urea Nitrogen 40 mg/dL (8-26) Creatinine 2.6 mg/dL (0.7-1.3) Estimated GFR (Cockcroft-Gault) 24.0 BUN/Creatinine Ratio 15 (6-20) Glucose Level 176 mg/dL (70-99) Calcium Level 7.2 mg/dL (8.5-10.1) Phosphorus Level 4.6 mg/dL (2.6-4.7) Magnesium Level 2.6 mg/dL (1.8-2.4) Total Bilirubin 8.0 mg/dL (0.2-1.0) Aspartate Amino Transf (AST/SGOT) 3393 U/L (15-37) Alanine Aminotransferase (ALT/SGPT) 3008 U/L (16-63) Alkaline Phosphatase 124 U/L (46-116) Total Protein 5.6 g/dL (6.4-8.2) Albumin 2.4 g/dL (3.4-5.0) Albumin/Globulin Ratio 0.8 (1.0-1.7) O2 Saturation 99 % (92-99) Arterial Blood pH 7.43 (7.35-7.45) Arterial Blood pCO2 at Patient Temp 29 mmHg (35-46) Arterial Blood pO2 at Patient Temp 158 mmHg (65-108) Arterial Blood HCO3 18 mmol/L (21-28) Arterial Blood Base Excess -5 mmol/L (-3-3) FiO2 60 Medications Current Medications Amiodarone HCl 450 mg/Dextrose 259 ml @ 17 mls/hr CONT PRN IV SEE I/O RECORD Last administered on 09/11/19at 02:33; Start 09/10/19 at 09:00 Diltiazem HCl 125 mg/Dextrose 125 ml @ 0 mls/hr CONT PRN IV SEE I/O RECORD Last administered on 09/11/19at 05:40; Start 09/10/19 at 06:30 Lactobacillus Rhamnosus (Culturelle) 1 cap BID PO Last administered on 09/11/19at 21:16; Start 09/10/19 at 09:00; Stop 09/12/19 at 09:15; Status DC Ceftriaxone Sodium (Rocephin) 1 gm Q24H IVP Last administered on 09/10/19at 12:55; Start 09/10/19 at 12:00; Stop 09/10/19 at 13:35; Status DC Azithromycin (Zithromax) 250 mg DAILY PO Last administered on 09/10/19at 08:38; Start 09/10/19 at 09:00; Stop 09/10/19 at 13:35; Status DC Dutasteride (Avodart) 0.5 mg DAILY PO Last administered on 09/11/19at 12:23; Start 09/10/19 at 09:00 Naproxen (Naprosyn) 500 mg PRN BID PRN PO MODERATE PAIN 4-6; Start 09/10/19 at 06:30; Stop 09/12/19 at 11:01; Status DC Albuterol Sulfate (Ventolin Neb Soln) 2.5 mg RTQID NEB Last administered on 09/13/19at 07:43; Start 09/10/19 at 08:00 Methylprednisolone Sodium Succinate (SOLU-Medrol 40MG VIAL) 40 mg Q8HRS IV Last administered on 09/13/19at 05:30; Start 09/10/19 at 08:00 Sodium Chloride (Normal Saline Flush) 10 ml QSHIFT PRN IV AFTER MEDS AND BLOOD DRAWS; Start 09/10/19 at 07:00 Influenza Virus Vaccine Quadrival (Afluria Quad 2019-20 (3yr Up) Syringe) 0.5 ml ONCE ONCE VAX IM ; Start 09/11/19 at 09:00; Stop 09/11/19 at 09:01; Status DC Bisacodyl (Dulcolax Supp) 10 mg PRN DAILY PRN RI CONSTIPATION Last administered on 09/10/19at 10:00; Start 09/10/19 at 10:00 Lorazepam (Ativan Inj) 0.5 mg 1X ONCE IVP Last administered on 09/10/19at 11:10; Start 09/10/19 at 11:15; Stop 09/10/19 at 11:16; Status DC Lorazepam (Ativan Inj) 0.5 mg 1X ONCE IVP Last administered on 09/10/19at 11:48; Start 09/10/19 at 11:45; Stop 09/10/19 at 11:47; Status DC Morphine Sulfate (Morphine Sulfate) 5 mg 1X ONCE IV Last administered on 09/10/19at 11:55; Start 09/10/19 at 12:00; Stop 09/10/19 at 12:01; Status DC Morphine Sulfate (Morphine Sulfate) 4 mg 1X ONCE IV Last administered on 09/10/19at 12:56; Start 09/10/19 at 13:00; Stop 09/10/19 at 13:01; Status DC Vancomycin HCl 1 gm/Sodium Chloride 250 ml @ 250 mls/hr Q12H IV ; Start 09/10/19 at 13:30; Status UNV Piperacillin Sod/ Tazobactam Sod 3.375 gm/Sodium Chloride 50 ml @ 100 mls/hr Q6HRS IV Last administered on 09/11/19at 05:39; Start 09/10/19 at 14:00; Stop 09/11/19 at 08:20; Status DC Vancomycin HCl 1.5 gm/Sodium Chloride 500 ml @ 250 mls/hr 1X ONCE IV Last administered on 09/10/19at 16:39; Start 09/10/19 at 14:00; Stop 09/10/19 at 15:59; Status DC Vancomycin HCl (Vanco Per Pharmacy) 1 each PRN DAILY PRN MC SEE COMMENTS Last administered on 09/10/19at 16:55; Start 09/10/19 at 14:00; Stop 09/11/19 at 07:59; Status DC Furosemide (Lasix) 40 mg DAILY IVP ; Start 09/11/19 at 09:00; Stop 09/10/19 at 15:41; Status DC Furosemide (Lasix) 20 mg 1X ONCE IVP ; Start 09/10/19 at 15:45; Stop 09/10/19 at 15:46; Status DC Furosemide (Lasix) 40 mg 1X ONCE IVP Last administered on 09/10/19at 16:38; Start 09/10/19 at 15:45; Stop 09/10/19 at 15:46; Status DC Vancomycin HCl 1 gm/Sodium Chloride 250 ml @ 250 mls/hr Q24H IV ; Start 09/11/19 at 16:30; Stop 09/11/19 at 07:59; Status DC Vancomycin HCl (Vancomycin Trough Level) 1 each 1X ONCE MC ; Start 09/12/19 at 16:00; Stop 09/11/19 at 08:01; Status DC Morphine Sulfate (Morphine Sulfate) 4 mg PRN Q2HR PRN IV PAIN, elevated respirations Last administered on 09/11/19at 20:31; Start 09/10/19 at 21:15 Succinylcholine Chloride (Anectine) 200 mg STK-MED ONCE .ROUTE ; Start 09/11/19 at 08:09; Stop 09/11/19 at 08:09; Status DC Propofol 100 ml @ As Directed STK-MED ONCE IV ; Start 09/11/19 at 08:09; Stop 09/11/19 at 08:09; Status DC Sodium Bicarbonate 100 meq/Dextrose 1,100 ml @ 75 mls/hr [id number] IV Last administered on 09/13/19at 06:03; Start 09/11/19 at 09:00 Piperacillin Sod/ Tazobactam Sod 3.375 gm/Sodium Chloride 50 ml @ 100 mls/hr Q 8HRS IV Last administered on 09/13/19at 05:30; Start 09/11/19 at 14:00 Levofloxacin/ Dextrose 100 ml @ 100 mls/hr 1X ONCE IV Last administered on 09/11/19at 12:39; Start 09/11/19 at 08:30; Stop 09/11/19 at 09:29; Status DC Levofloxacin/ Dextrose 50 ml @ 50 mls/hr Q24H IV Last administered on 09/11/19at 12:27; Start 09/12/19 at 09:00; Stop 09/11/19 at 16:31; Status DC Fentanyl Citrate 30 ml @ 0 mls/hr CONT PRN IV SEE PROTOCOL Last administered on 09/13/19at 04:35; Start 09/11/19 at 10:15 Propofol 100 ml @ 0 mls/hr CONT PRN IV SEE PROTOCOL; Start 09/11/19 at 10:15 Midazolam HCl 100 ml @ 0 mls/hr CONT PRN IV SEE PROTOCOL Last administered on 09/11/19at 11:30; Start 09/11/19 at 10:15 Norepinephrine Bitartrate 250 ml @ 13.81 mls/ hr CONT PRN IV SEE I/O RECORD Last administered on 09/12/19at 10:47; Start 09/11/19 at 10:45 Sodium Bicarbonate (Sodium Bicarb Adult 8.4% Syr) 50 meq STK-MED ONCE .ROUTE ; Start 09/11/19 at 10:49; Stop 09/11/19 at 10:50; Status DC Succinylcholine Chloride (Anectine) 200 mg STK-MED ONCE .ROUTE ; Start 09/11/19 at 10:57; Stop 09/11/19 at 10:57; Status DC Sodium Bicarbonate (Sodium Bicarb Adult 8.4% Syr) 100 meq 1X ONCE IV Last administered on 09/11/19at 11:28; Start 09/11/19 at 11:15; Stop 09/11/19 at 11:16; Status DC Vasopressin 40 unit/Dextrose 102 ml @ 6 mls/hr CONT PRN IV SEE I/O RECORD Last administered on 09/12/19at 16:31; Start 09/11/19 at 11:30 Sodium Chloride 1,000 ml @ 1,770 mls/hr Q34M IV Last administered on 09/11/19at 12:28; Start 09/11/19 at 11:45; Stop 09/11/19 at 12:45; Status DC Lidocaine HCl (Buffered Lidocaine 1%) 3 ml STK-MED ONCE .ROUTE ; Start 09/11/19 at 15:23; Stop 09/11/19 at 15:23; Status DC Epinephrine HCl 4 mg/Sodium Chloride 254 ml @ 28.061 mls/ hr CONT PRN IV SEE I/O RECORD; Start 09/11/19 at 15:45 Levofloxacin/ Dextrose 100 ml @ 100 mls/hr Q24H IV Last administered on 09/12/19at 09:39; Start 09/12/19 at 09:00 Lidocaine HCl (Buffered Lidocaine 1%) 3 ml 1X ONCE INJ Last administered on 09/11/19at 17:14; Start 09/11/19 at 17:15; Stop 09/11/19 at 17:16; Status DC Sodium Chloride 500 ml @ 500 mls/hr 1X ONCE IV Last administered on 09/11/19 at 21:21; Start 09/11/19 at 21:15; Stop 09/11/19 at 22:14; Status DC Calcium Chloride 12.5 meq/ Bicarbonate Dialysis Soln w/ out KCl 5,008.9286 ml @ 1,000 mls/hr Q5H1M IV ; Start 09/12/19 at 09:00; Stop 09/12/19 at 12:18; Status DC Calcium Chloride 12.5 meq/ Bicarbonate Dialysis Soln w/ out KCl 5,008.9286 ml @ 1,000 mls/hr Q5H1M IV ; Start 09/12/19 at 09:00; Stop 09/12/19 at 10:00; Status DC Calcium Chloride 12.5 meq/ Bicarbonate Dialysis Soln w/ out KCl 5,008.9286 ml @ 1,000 mls/hr Q5H1M IV ; Start 09/12/19 at 09:00; Stop 09/12/19 at 10:02; Status DC Lidocaine HCl (Lta Kit) 4 ml STK-MED ONCE TP ; Start 09/10/19 at 16:00; Stop 09/12/19 at 09:29; Status DC Calcium Chloride 12.5 meq/ Bicarbonate Dialysis Soln w/ out KCl 5,008.9286 ml @ 1,500 mls/hr Q3H21M IV ; Start 09/12/19 at 12:00; Stop 09/12/19 at 11:28; Status DC Calcium Chloride 12.5 meq/ Bicarbonate Dialysis Soln w/ out KCl 5,008.9286 ml @ 1,500 mls/hr Q3H21M IV ; Start 09/12/19 at 12:00; Stop 09/12/19 at 11:30; Status DC Pantoprazole Sodium (PROTONIX VIAL for IV PUSH) 40 mg DAILYAC IVP Last administered on 09/12/19at 12:35; Start 09/12/19 at 12:00 Calcium Chloride 12.5 meq/ Bicarbonate Dialysis Soln w/ out KCl 5,008.9286 ml @ 1,000 mls/hr Q5H1M IV ; Start 09/12/19 at 13:00; Stop 09/12/19 at 12:18; Status DC Calcium Chloride 12.5 meq/ Bicarbonate Dialysis Soln w/ out KCl 5,008.9286 ml @ 1,000 mls/hr Q5H1M IV ; Start 09/12/19 at 13:00; Stop 09/12/19 at 12:18; Status DC Potassium Chloride 10 meq/ Bicarbonate Dialysis Soln w/ out KCl 5,005 ml @ 1,000 mls/hr Q5H1M IV Last administered on 09/13/19at 06:04; Start 09/12/19 at 13:00 Potassium Chloride 10 meq/ Bicarbonate Dialysis Soln w/ out KCl 5,005 ml @ 1,000 mls/hr Q5H1M IV Last administered on 09/13/19at 06:04; Start 09/12/19 at 12:30 Potassium Chloride 10 meq/ Bicarbonate Dialysis Soln w/ out KCl 5,005 ml @ 1,000 mls/hr Q5H1M IV Last administered on 09/13/19at 06:05; Start 09/12/19 at 13:00 Fentanyl Citrate (Fentanyl 600 Mcg/30 ml [employer]) 600 mcg STK-MED ONCE IV ; Start 09/11/19 at 11:28; Stop 09/12/19 at 15:46; Status DC Phytonadione 1 mg/ Dextrose 50.1 ml @ 102 mls/hr 1X ONCE IV Last administered on 09/12/19at 17:07; Start 09/12/19 at 17:00; Stop 09/12/19 at 17:29; Status DC Daptomycin 320 mg/ Sodium Chloride 50 ml @ 100 mls/hr Q24H IV ; Start 09/13/19 at 08:00 Active Scripts Active Reported Naproxen 500 Mg Tablet 1 Tab PO PRN BID PRN 30 Days Avodart (Dutasteride) 0.5 Mg Capsule 1 Cap PO DAILY Vitals/I & O Vital Sign - Last 24 Hours 09/12/19 09/12/19 09/12/19 09/12/19 08:33 09:00 09:57 10:06 Pulse 93 97 Resp 30 30 B/P (MAP) 97/51 (66) 102/54 (70) Pulse Ox 99 99 96 95 O2 Delivery Ventilator Ventilator Ventilator Ventilator 09/12/19 09/12/19 09/12/19 09/12/19 11:00 11:13 12:00 12:00 Temp 97.5 97.5 Pulse 87 82 Resp 30 30 B/P (MAP) 104/53 (70) 136/62 (86) Pulse Ox 100 100 100 O2 Delivery Ventilator Ventilator Ventilator 09/12/19 09/12/19 09/12/19 09/12/19 12:00 13:00 13:56 14:00 Pulse 82 85 Resp 30 30 B/P (MAP) 146/64 (91) 143/68 (93) Pulse Ox 100 100 100 O2 Delivery Mechanical Ventilator Ventilator Ventilator Ventilator 09/12/19 09/12/19 09/12/19 09/12/19 14:00 15:00 15:17 16:00 Temp 96.6 96.6 Pulse 85 79 Resp 30 30 B/P (MAP) 148/51 (83) 152/69 (96) 146/64 (91) Pulse Ox 100 100 98 O2 Delivery Ventilator Ventilator Ventilator 09/12/19 09/12/19 09/12/19 09/12/19 16:02 17:00 17:53 18:00 Pulse 85 93 Resp 30 30 B/P (MAP) 161/67 (98) 142/65 (90) Pulse Ox 100 94 100 O2 Delivery Mechanical Ventilator Ventilator Ventilator Ventilator 09/12/19 09/12/19 09/12/19 09/12/19 18:06 18:31 18:37 19:00 Temp 94.0 93.6 94.0 93.6 Pulse 83 77 Resp 30 30 30 30 B/P (MAP) 147/61 138/63 (88) Pulse Ox 98 99 98 O2 Delivery Ventilator Ventilator Ventilator 09/12/19 09/12/19 09/12/19 09/12/19 19:02 19:40 19:52 20:00 Temp 93.6 93.6 Pulse 83 Resp 30 B/P (MAP) 140/66 141/65 (90) O2 Delivery Mechanical Ventilator 09/12/19 09/12/19 09/12/19 09/12/19 20:00 20:04 20:45 21:00 Temp 93.7 94.1 93.7 94.1 Pulse 80 81 Resp 30 30 B/P (MAP) 129/57 (81) 135/60 (85) 129/60 (83) Pulse Ox 95 98 O2 Delivery Ventilator Ventilator Ventilator 09/12/19 09/12/19 09/12/19 09/12/19 21:36 21:51 22:00 23:00 Temp 94.1 91.2 94.5 94.8 94.1 91.2 94.5 94.8 Pulse 84 78 83 89 Resp 30 30 30 30 B/P (MAP) 133/58 128/58 138/57 (84) 117/54 (75) Pulse Ox 97 98 O2 Delivery Ventilator Ventilator 09/12/19 09/12/19 09/12/19 09/13/19 23:30 23:32 23:35 00:00 Temp 95.2 95.2 Pulse 89 Resp 30 B/P (MAP) 94/46 (62) Pulse Ox 98 O2 Delivery Mechanical Ventilator Ventilator Ventilator 09/13/19 09/13/19 09/13/19 09/13/19 00:20 00:52 01:00 01:07 Temp 95.3 95.2 95.2 95.3 95.2 95.2 Pulse 82 77 82 Resp 30 30 30 B/P (MAP) 103/49 (67) 113/55 114/59 (77) 121/59 Pulse Ox 98 O2 Delivery Ventilator 09/13/19 09/13/19 09/13/19 09/13/19 01:24 02:00 03:00 03:34 Temp 95.4 95.7 95.4 95.7 Pulse 84 78 Resp 30 30 B/P (MAP) 113/50 (71) 107/50 (69) Pulse Ox 96 96 97 O2 Delivery Ventilator Ventilator Ventilator 09/13/19 09/13/19 09/13/19 09/13/19 03:34 03:46 04:00 04:00 Temp 95.4 95.4 95.4 95.4 Pulse 84 84 Resp 30 30 B/P (MAP) 121/61 121/61 (81) Pulse Ox 96 96 O2 Delivery Mechanical Ventilator Ventilator Ventilator 09/13/19 09/13/19 09/13/19 09/13/19 05:00 05:42 06:00 07:43 Temp 95.2 95.0 95.2 95.0 Pulse 80 86 Resp 30 30 B/P (MAP) 118/58 (78) 126/60 (82) Pulse Ox 97 96 98 100 O2 Delivery Ventilator Ventilator Ventilator Ventilator 09/13/19 07:54 Pulse Ox 98 Intake and Output 09/12/19 09/12/19 09/13/19 15:00 23:00 07:00 Intake Total 150 ml 1717.78 ml 2092 ml Output Total 100 ml 3 ml Balance 150 ml 1617.78 ml 2089 ml JANI BARRIOS MD Sep 13, 2019 08:36
--- NOTE | 2019-09-13 08:37 | NUR ---
[id number] Repeat 100 ml fluid return for increasing pressure. Dialysis nurse Ray COSTA at bedside. Necessary equipment w tubing change in progress. K+ 3.9 w orders sent to lab.
[2019-09-13] MEDS: POTASSIUM CHLORIDE 20 MEQ in DIALYSIS SOLUTION BGK 0/2.5 5,000 ML IV SCH ×16 (08:45→19:43)
[2019-09-13] MEDS: DUTASTERIDE 0.5 MG CAPSULE PO SCH (09:00)
--- NOTE | 2019-09-13 09:16 | PDOC ---
PULMONARY PROGRESS NOTES Subjective INTUBATED 09/11 BY ANESTHESIA NOW AC MODE 90% UNDERGOING CRRT Vitals Vital Signs Date Time Temp Pulse Resp B/P (MAP) Pulse Ox O2 Delivery O2 Flow Rate FiO2 09/13/19 07:54 98 09/13/19 07:43 Ventilator 09/13/19 06:00 95.0 86 30 126/60 (82) 95.0 Lungs: Crackles Cardiovascular: S1, S2 Abdomen: Soft Extremities: Other (EDMA ) Skin: Warm Labs Laboratory Tests Test 09/11/19 09:25 09/11/19 14:15 09/12/19 05:30 09/12/19 06:40 O2 Saturation 82 % (92-99) 87 % (92-99) Arterial Blood pH 6.99 (7.35-7.45) 7.13 (7.35-7.45) Arterial Blood pCO2 at Patient Temp 50 mmHg (35-46) 41 mmHg (35-46) Arterial Blood pO2 at Patient Temp 74 mmHg (65-108) 72 mmHg (65-108) Arterial Blood HCO3 12 mmol/L (21-28) 13 mmol/L (21-28) Arterial Blood Base Excess -19 mmol/L (-3-3) -15 mmol/L (-3-3) FiO2 100 100 White Blood Count 40.7 x10^3/uL (4.0-11.0) Red Blood Count 3.25 x10^6/uL (4.30-5.70) Hemoglobin 7.3 g/dL (13.0-17.5) Hematocrit 23.8 % (39.0-53.0) Mean Corpuscular Volume 73 fL (79-100) Mean Corpuscular Hemoglobin 23 pg (25-35) Mean Corpuscular Hemoglobin Concent 31 g/dL (31-37) Red Cell Distribution Width 16.0 % (11.5-14.5) Platelet Count 92 x10^3/uL (140-400) Sodium Level 137 mmol/L (136-145) Potassium Level 5.7 mmol/L (3.5-5.1) Chloride Level 98 mmol/L (98-107) Carbon Dioxide Level 17 mmol/L (21-32) Anion Gap 22 (6-14) Blood Urea Nitrogen 80 mg/dL (8-26) Creatinine 5.5 mg/dL (0.7-1.3) Estimated GFR (Cockcroft-Gault) 10.1 BUN/Creatinine Ratio 15 (6-20) Glucose Level 163 mg/dL (70-99) Calcium Level 7.0 mg/dL (8.5-10.1) Total Bilirubin 3.9 mg/dL (0.2-1.0) Aspartate Amino Transf (AST/SGOT) 6667 U/L (15-37) Alanine Aminotransferase (ALT/SGPT) 3921 U/L (16-63) Alkaline Phosphatase 93 U/L (46-116) Total Protein 5.6 g/dL (6.4-8.2) Albumin 2.2 g/dL (3.4-5.0) Albumin/Globulin Ratio 0.6 (1.0-1.7) Test 09/12/19 08:00 09/12/19 09:52 09/12/19 11:50 09/12/19 16:15 O2 Saturation 96 % (92-99) Arterial Blood pH 7.26 (7.35-7.45) Arterial Blood pCO2 at Patient Temp 29 mmHg (35-46) Arterial Blood pO2 at Patient Temp 98 mmHg (65-108) Arterial Blood HCO3 13 mmol/L (21-28) Arterial Blood Base Excess -13 mmol/L (-3-3) FiO2 90 Influenza Type A Antigen Negative (NEGATIVE) Influenza Type B Antigen Negative (NEGATIVE) Group A Streptococcus Rapid Negative (NEGATIVE) Platelet Count 112 x10^3/uL (140-400) Prothrombin Time 45.7 SEC (11.7-14.0) Prothromb Time International Ratio 4.9 (0.8-1.1) Activated Partial Thromboplast Time 43 SEC (24-38) Fibrinogen 258 mg/dL (200-440) D-Dimer (Kathia) > 20.00 ug/mlFEU Sodium Level 136 mmol/L (136-145) Potassium Level 4.3 mmol/L (3.5-5.1) Chloride Level 98 mmol/L (98-107) Carbon Dioxide Level 18 mmol/L (21-32) Anion Gap 20 (6-14) Blood Urea Nitrogen 60 mg/dL (8-26) Creatinine 3.9 mg/dL (0.7-1.3) Estimated GFR (Cockcroft-Gault) 15.0 BUN/Creatinine Ratio 15 (6-20) Glucose Level 174 mg/dL (70-99) Calcium Level 7.0 mg/dL (8.5-10.1) Phosphorus Level 6.9 mg/dL (2.6-4.7) Magnesium Level 2.4 mg/dL (1.8-2.4) Total Bilirubin 5.7 mg/dL (0.2-1.0) Aspartate Amino Transf (AST/SGOT) 4963 U/L (15-37) Alanine Aminotransferase (ALT/SGPT) 3806 U/L (16-63) Alkaline Phosphatase 116 U/L (46-116) Total Protein 6.0 g/dL (6.4-8.2) Albumin 2.4 g/dL (3.4-5.0) Albumin/Globulin Ratio 0.7 (1.0-1.7) Test 09/12/19 22:15 09/13/19 04:10 09/13/19 07:50 Sodium Level 137 mmol/L (136-145) 134 mmol/L (136-145) Potassium Level 4.2 mmol/L (3.5-5.1) 3.9 mmol/L (3.5-5.1) Chloride Level 100 mmol/L (98-107) 100 mmol/L (98-107) Carbon Dioxide Level 20 mmol/L (21-32) 22 mmol/L (21-32) Anion Gap 17 (6-14) 12 (6-14) Blood Urea Nitrogen 46 mg/dL (8-26) 40 mg/dL (8-26) Creatinine 3.1 mg/dL (0.7-1.3) 2.6 mg/dL (0.7-1.3) Estimated GFR (Cockcroft-Gault) 19.6 24.0 BUN/Creatinine Ratio 15 (6-20) 15 (6-20) Glucose Level 177 mg/dL (70-99) 176 mg/dL (70-99) Calcium Level 7.0 mg/dL (8.5-10.1) 7.2 mg/dL (8.5-10.1) Phosphorus Level 5.7 mg/dL (2.6-4.7) 4.6 mg/dL (2.6-4.7) Magnesium Level 2.5 mg/dL (1.8-2.4) 2.6 mg/dL (1.8-2.4) Total Bilirubin 6.8 mg/dL (0.2-1.0) 8.0 mg/dL (0.2-1.0) Aspartate Amino Transf (AST/SGOT) 4186 U/L (15-37) 3393 U/L (15-37) Alanine Aminotransferase (ALT/SGPT) 3443 U/L (16-63) 3008 U/L (16-63) Alkaline Phosphatase 119 U/L (46-116) 124 U/L (46-116) Total Protein 5.7 g/dL (6.4-8.2) 5.6 g/dL (6.4-8.2) Albumin 2.3 g/dL (3.4-5.0) 2.4 g/dL (3.4-5.0) Albumin/Globulin Ratio 0.7 (1.0-1.7) 0.8 (1.0-1.7) White Blood Count 47.6 x10^3/uL (4.0-11.0) Red Blood Count 4.52 x10^6/uL (4.30-5.70) Hemoglobin 10.7 g/dL (13.0-17.5) Hematocrit 32.8 % (39.0-53.0) Mean Corpuscular Volume 73 fL (79-100) Mean Corpuscular Hemoglobin 24 pg (25-35) Mean Corpuscular Hemoglobin Concent 33 g/dL (31-37) Red Cell Distribution Width 18.0 % (11.5-14.5) Platelet Count 79 x10^3/uL (140-400) Prothrombin Time 37.3 SEC (11.7-14.0) Prothromb Time International Ratio 3.8 (0.8-1.1) O2 Saturation 99 % (92-99) Arterial Blood pH 7.43 (7.35-7.45) Arterial Blood pCO2 at Patient Temp 29 mmHg (35-46) Arterial Blood pO2 at Patient Temp 158 mmHg (65-108) Arterial Blood HCO3 18 mmol/L (21-28) Arterial Blood Base Excess -5 mmol/L (-3-3) FiO2 60 Laboratory Tests Test 09/12/19 09:52 09/12/19 11:50 09/12/19 16:15 09/12/19 22:15 Influenza Type A Antigen Negative (NEGATIVE) Influenza Type B Antigen Negative (NEGATIVE) Group A Streptococcus Rapid Negative (NEGATIVE) Platelet Count 112 x10^3/uL (140-400) Prothrombin Time 45.7 SEC (11.7-14.0) Prothromb Time International Ratio 4.9 (0.8-1.1) Activated Partial Thromboplast Time 43 SEC (24-38) Fibrinogen 258 mg/dL (200-440) D-Dimer (Kathia) > 20.00 ug/mlFEU Sodium Level 136 mmol/L (136-145) 137 mmol/L (136-145) Potassium Level 4.3 mmol/L (3.5-5.1) 4.2 mmol/L (3.5-5.1) Chloride Level 98 mmol/L (98-107) 100 mmol/L (98-107) Carbon Dioxide Level 18 mmol/L (21-32) 20 mmol/L (21-32) Anion Gap 20 (6-14) 17 (6-14) Blood Urea Nitrogen 60 mg/dL (8-26) 46 mg/dL (8-26) Creatinine 3.9 mg/dL (0.7-1.3) 3.1 mg/dL (0.7-1.3) Estimated GFR (Cockcroft-Gault) 15.0 19.6 BUN/Creatinine Ratio 15 (6-20) 15 (6-20) Glucose Level 174 mg/dL (70-99) 177 mg/dL (70-99) Calcium Level 7.0 mg/dL (8.5-10.1) 7.0 mg/dL (8.5-10.1) Phosphorus Level 6.9 mg/dL (2.6-4.7) 5.7 mg/dL (2.6-4.7) Magnesium Level 2.4 mg/dL (1.8-2.4) 2.5 mg/dL (1.8-2.4) Total Bilirubin 5.7 mg/dL (0.2-1.0) 6.8 mg/dL (0.2-1.0) Aspartate Amino Transf (AST/SGOT) 4963 U/L (15-37) 4186 U/L (15-37) Alanine Aminotransferase (ALT/SGPT) 3806 U/L (16-63) 3443 U/L (16-63) Alkaline Phosphatase 116 U/L (46-116) 119 U/L (46-116) Total Protein 6.0 g/dL (6.4-8.2) 5.7 g/dL (6.4-8.2) Albumin 2.4 g/dL (3.4-5.0) 2.3 g/dL (3.4-5.0) Albumin/Globulin Ratio 0.7 (1.0-1.7) 0.7 (1.0-1.7) Test 09/13/19 04:10 09/13/19 07:50 White Blood Count 47.6 x10^3/uL (4.0-11.0) Red Blood Count 4.52 x10^6/uL (4.30-5.70) Hemoglobin 10.7 g/dL (13.0-17.5) Hematocrit 32.8 % (39.0-53.0) Mean Corpuscular Volume 73 fL (79-100) Mean Corpuscular Hemoglobin 24 pg (25-35) Mean Corpuscular Hemoglobin Concent 33 g/dL (31-37) Red Cell Distribution Width 18.0 % (11.5-14.5) Platelet Count 79 x10^3/uL (140-400) Prothrombin Time 37.3 SEC (11.7-14.0) Prothromb Time International Ratio 3.8 (0.8-1.1) Sodium Level 134 mmol/L (136-145) Potassium Level 3.9 mmol/L (3.5-5.1) Chloride Level 100 mmol/L (98-107) Carbon Dioxide Level 22 mmol/L (21-32) Anion Gap 12 (6-14) Blood Urea Nitrogen 40 mg/dL (8-26) Creatinine 2.6 mg/dL (0.7-1.3) Estimated GFR (Cockcroft-Gault) 24.0 BUN/Creatinine Ratio 15 (6-20) Glucose Level 176 mg/dL (70-99) Calcium Level 7.2 mg/dL (8.5-10.1) Phosphorus Level 4.6 mg/dL (2.6-4.7) Magnesium Level 2.6 mg/dL (1.8-2.4) Total Bilirubin 8.0 mg/dL (0.2-1.0) Aspartate Amino Transf (AST/SGOT) 3393 U/L (15-37) Alanine Aminotransferase (ALT/SGPT) 3008 U/L (16-63) Alkaline Phosphatase 124 U/L (46-116) Total Protein 5.6 g/dL (6.4-8.2) Albumin 2.4 g/dL (3.4-5.0) Albumin/Globulin Ratio 0.8 (1.0-1.7) O2 Saturation 99 % (92-99) Arterial Blood pH 7.43 (7.35-7.45) Arterial Blood pCO2 at Patient Temp 29 mmHg (35-46) Arterial Blood pO2 at Patient Temp 158 mmHg (65-108) Arterial Blood HCO3 18 mmol/L (21-28) Arterial Blood Base Excess -5 mmol/L (-3-3) FiO2 60 Medications Active Scripts Medications Dose Route/Sig Max Daily Dose Days Date Category Naproxen 500 Mg Tablet 1 Tab PO PRN BID PRN 30 09/10/19 Reported Avodart (Dutasteride) 0.5 Mg Capsule 1 Cap PO DAILY 09/10/19 Reported Impression . IMPRESSION: 1. Acute hypoxemic respiratory failure/ARDS 2. SEPTIC SHOCK 3. Abnormal CT chest revealing bilateral pulmonary infiltrates. 4. Pneumonia, suspect gram-negative, gram-positive. 5. Possible acute pulmonary edema. 6. Possible interstitial lung disease/pulmonary fibrosis. 7. History of rheumatoid arthritis. 8. Atrial fibrillation with rapid ventricular response. 9. ACUTE MET ACIDOSIS 10. ACUTE RENAL FAILURE 11. ACUTE BLOOD LOSS ANEMIA VS DIC 12. ACUTE KIDNEY INJURY CXR Findings: Portable semiupright frontal view of chest was obtained. Small and large bore central venous catheters on the right are present terminating overlying the right atrium. Endotracheal tube terminates 0.6 mm from the lang. Enteric tube again seen. Heart size is borderline. Pulmonary interstitial thickening and/or edema again seen. No pneumothorax. No new focal consolidation. Consolidative appearance of the left basal retrocardiac region similar to prior exam. Plan . NUMBERS ARE BETTER FI02 DOWN TO 50% WILL CONTINUE SUPPORT WITH VENT CRRT STARTED TOO SICK TO UNDERGO BRONCH ANTIBX PER ID START TF DVT AND GI PROPH CONSULT HEME DONE APPRECIATED INCREASE I E RATION PEEP AT 7 DECREASE 02 CCT IN 3 MINUTES/ REVIEWING DATA/XRAYS/FORMULATING A PLAN D/W AND SONS FROM OUT OF TOWN VIRGEN ROME MD Sep 13, 2019 09:16
[2019-09-13] MEDS: PANTOPRAZOLE IV PUSH 40 MG VIAL. IVP SCH (09:26)
[2019-09-13] MEDS: DAPTOmycin (GENERIC) IVPB 320 MG in IV NORMAL SALINE 50ML 50 ML IV SCH (09:28)
--- NOTE | 2019-09-13 09:30 | PDOC ---
SUBJECTIVE ROS Intubated, on low dose pressors, BP improved, Anuric OBJECTIVE Vital Signs Vital Signs Date Time Temp Pulse Resp B/P (MAP) Pulse Ox O2 Delivery O2 Flow Rate FiO2 09/13/19 09:21 96 Ventilator 09/13/19 06:00 95.0 86 30 126/60 (82) 95.0 I & 0 Intake and Output 09/13/19 07:00 Intake Total 3959.78 ml Output Total 103 ml Balance 3856.78 ml Intake Oral 0 ml IV Total 2499.78 ml Blood Product 910 ml Blood Product IV Normal Saline Flush 550 ml Output Urine Total 3 ml Gastric Drainage Total 100 ml PHYSICAL EXAM Physical Exam GENERAL: orally intubated on vent HEENT: Both pupils are round and reacting. Orally intubated NECK: Supple, LUNGS: Clear. HEART: S1, S2 regular. ABDOMEN: Soft, EXTREMITIES: No edema, cyanosis. SKIN: Unremarkable. 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 Pneumonia Possible interstitial lung disease/pulmonary fibrosis. History of rheumatoid arthritis. Atrial fibrillation with rapid ventricular response. Cardioverted Discussed with RN and family at bedside COMMENT/RELEVANT DATA Meds Current Medications Medications (Trade) Dose Ordered Sig/Veena Start Time Stop Time Status Last Admin Dose Admin Albuterol Sulfate (Ventolin Neb Soln) 2.5 mg RTQID 09/10/19 08:00 09/13/19 07:43 2.5 MG Amiodarone HCl 450 mg/Dextrose 259 ml @ 17 mls/hr CONT PRN 09/10/19 09:00 09/11/19 02:33 17 MLS/HR Azithromycin (Zithromax) 250 mg DAILY 09/10/19 09:00 09/10/19 13:35 DC 09/10/19 08:38 250 MG Bisacodyl (Dulcolax Supp) 10 mg PRN DAILY PRN 09/10/19 10:00 09/10/19 10:00 10 MG Calcium Chloride 12.5 meq/ Bicarbonate Dialysis Soln w/ out KCl 5,008.9286 ml @ 1,000 mls/hr Q5H1M 09/12/19 13:00 09/12/19 12:18 DC Ceftriaxone Sodium (Rocephin) 1 gm Q24H 09/10/19 12:00 09/10/19 13:35 DC 09/10/19 12:55 1 GM Daptomycin 320 mg/ Sodium Chloride 50 ml @ 100 mls/hr Q24H 09/13/19 08:00 Diltiazem HCl 125 mg/Dextrose 125 ml @ 0 mls/hr CONT PRN 09/10/19 06:30 09/11/19 05:40 10 MLS/HR Dutasteride (Avodart) 0.5 mg DAILY 09/10/19 09:00 09/11/19 12:23 0.5 MG Epinephrine HCl 4 mg/Sodium Chloride 254 ml @ 28.061 mls/ hr CONT PRN 09/11/19 15:45 Fentanyl Citrate (Fentanyl 600 Mcg/30 ml ANESTHESIOLOGY TEACHER) 600 mcg STK-MED ONCE 09/11/19 11:28 09/12/19 15:46 DC Furosemide (Lasix) 40 mg 1X ONCE 09/10/19 15:45 09/10/19 15:46 DC 09/10/19 16:38 40 MG Influenza Virus Vaccine Quadrival (Afluria Quad 2019-20 (3yr Up) Syringe) 0.5 ml ONCE ONCE 09/11/19 09:00 09/11/19 09:01 DC Lactobacillus Rhamnosus (Culturelle) 1 cap BID 09/10/19 09:00 09/12/19 09:15 DC 09/11/19 21:16 1 CAP Levofloxacin/ Dextrose 100 ml @ 100 mls/hr Q24H 09/12/19 09:00 09/12/19 09:39 100 MLS/HR Lidocaine HCl (Buffered Lidocaine 1%) 3 ml 1X ONCE 09/11/19 17:15 09/11/19 17:16 DC 09/11/19 17:14 3 ML Lidocaine HCl (Lta Kit) 4 ml STK-MED ONCE 09/10/19 16:00 09/12/19 09:29 DC Lorazepam (Ativan Inj) 0.5 mg 1X ONCE 09/10/19 11:45 09/10/19 11:47 DC 09/10/19 11:48 0.5 MG Methylprednisolone Sodium Succinate (SOLU-Medrol 40MG VIAL) 40 mg Q8HRS 09/10/19 08:00 09/13/19 05:30 40 MG Midazolam HCl 100 ml @ 0 mls/hr CONT PRN 09/11/19 10:15 09/11/19 11:30 5 MLS/HR Morphine Sulfate (Morphine Sulfate) 4 mg PRN Q2HR PRN 09/10/19 21:15 09/11/19 20:31 4 MG Naproxen (Naprosyn) 500 mg PRN BID PRN 09/10/19 06:30 09/12/19 11:01 DC Norepinephrine Bitartrate 250 ml @ 13.81 mls/ hr CONT PRN 09/11/19 10:45 09/12/19 10:47 25 MLS/HR Pantoprazole Sodium (PROTONIX VIAL for IV PUSH) 40 mg DAILYAC 09/12/19 12:00 09/12/19 12:35 40 MG Phytonadione 1 mg/ Dextrose 50.1 ml @ 102 mls/hr 1X ONCE 09/12/19 17:00 09/12/19 17:29 DC 09/12/19 17:07 102 MLS/HR Piperacillin Sod/ Tazobactam Sod 3.375 gm/Sodium Chloride 50 ml @ 100 mls/hr Q8HRS 09/11/19 14:00 09/13/19 05:30 100 MLS/HR Potassium Chloride 10 meq/ Bicarbonate Dialysis Soln w/ out KCl 5,005 ml @ 1,000 mls/hr Q5H1M 09/12/19 13:00 09/13/19 08:36 DC 09/13/19 06:05 1,000 MLS/HR Potassium Chloride 20 meq/ Bicarbonate Dialysis Soln w/ out KCl 5,010 ml @ 1,000 mls/hr Q5H1M 09/13/19 08:45 Propofol 100 ml @ 0 mls/hr CONT PRN 09/11/19 10:15 Sodium Bicarbonate 100 meq/Dextrose 1,100 ml @ 75 mls/hr [id number] 09/11/19 09:00 09/13/19 06:03 75 MLS/HR Sodium Bicarbonate (Sodium Bicarb Adult 8.4% Syr) 100 meq 1X ONCE 09/11/19 11:15 09/11/19 11:16 DC 09/11/19 11:28 100 MEQ Sodium Chloride 500 ml @ 500 mls/hr 1X ONCE 09/11/19 21:15 09/11/19 22:14 DC 09/11/19 21:21 500 MLS/HR Sodium Chloride (Normal Saline Flush) 10 ml QSHIFT PRN 09/10/19 07:00 Succinylcholine Chloride (Anectine) 200 mg STK-MED ONCE 09/11/19 10:57 09/11/19 10:57 DC Vancomycin HCl (Vanco Per Pharmacy) 1 each PRN DAILY PRN 09/10/19 14:00 09/11/19 07:59 DC 09/10/19 16:55 1 EACH Vancomycin HCl (Vancomycin Trough Level) 1 each 1X ONCE 09/12/19 16:00 09/11/19 08:01 DC Vancomycin HCl 1.5 gm/Sodium Chloride 500 ml @ 250 mls/hr 1X ONCE 09/10/19 14:00 09/10/19 15:59 DC 09/10/19 16:39 250 MLS/HR Vancomycin HCl 1 gm/Sodium Chloride 250 ml @ 250 mls/hr Q24H 09/11/19 16:30 09/11/19 07:59 DC Vasopressin 40 unit/Dextrose 102 ml @ 6 mls/hr CONT PRN 09/11/19 11:30 09/12/19 16:31 6 MLS/HR Lab Laboratory Tests Test 09/12/19 09:52 09/12/19 11:50 09/12/19 16:15 09/12/19 22:15 Influenza Type A Antigen Negative (NEGATIVE) Influenza Type B Antigen Negative (NEGATIVE) Group A Streptococcus Rapid Negative (NEGATIVE) Platelet Count 112 x10^3/uL (140-400) Prothrombin Time 45.7 SEC (11.7-14.0) Prothromb Time International Ratio 4.9 (0.8-1.1) Activated Partial Thromboplast Time 43 SEC (24-38) Fibrinogen 258 mg/dL (200-440) D-Dimer (Kathia) > 20.00 ug/mlFEU Sodium Level 136 mmol/L (136-145) 137 mmol/L (136-145) Potassium Level 4.3 mmol/L (3.5-5.1) 4.2 mmol/L (3.5-5.1) Chloride Level 98 mmol/L (98-107) 100 mmol/L (98-107) Carbon Dioxide Level 18 mmol/L (21-32) 20 mmol/L (21-32) Anion Gap 20 (6-14) 17 (6-14) Blood Urea Nitrogen 60 mg/dL (8-26) 46 mg/dL (8-26) Creatinine 3.9 mg/dL (0.7-1.3) 3.1 mg/dL (0.7-1.3) Estimated GFR (Cockcroft-Gault) 15.0 19.6 BUN/Creatinine Ratio 15 (6-20) 15 (6-20) Glucose Level 174 mg/dL (70-99) 177 mg/dL (70-99) Calcium Level 7.0 mg/dL (8.5-10.1) 7.0 mg/dL (8.5-10.1) Phosphorus Level 6.9 mg/dL (2.6-4.7) 5.7 mg/dL (2.6-4.7) Magnesium Level 2.4 mg/dL (1.8-2.4) 2.5 mg/dL (1.8-2.4) Total Bilirubin 5.7 mg/dL (0.2-1.0) 6.8 mg/dL (0.2-1.0) Aspartate Amino Transf (AST/SGOT) 4963 U/L (15-37) 4186 U/L (15-37) Alanine Aminotransferase (ALT/SGPT) 3806 U/L (16-63) 3443 U/L (16-63) Alkaline Phosphatase 116 U/L (46-116) 119 U/L (46-116) Total Protein 6.0 g/dL (6.4-8.2) 5.7 g/dL (6.4-8.2) Albumin 2.4 g/dL (3.4-5.0) 2.3 g/dL (3.4-5.0) Albumin/Globulin Ratio 0.7 (1.0-1.7) 0.7 (1.0-1.7) Test 09/13/19 04:10 09/13/19 07:50 White Blood Count 47.6 x10^3/uL (4.0-11.0) Red Blood Count 4.52 x10^6/uL (4.30-5.70) Hemoglobin 10.7 g/dL (13.0-17.5) Hematocrit 32.8 % (39.0-53.0) Mean Corpuscular Volume 73 fL (79-100) Mean Corpuscular Hemoglobin 24 pg (25-35) Mean Corpuscular Hemoglobin Concent 33 g/dL (31-37) Red Cell Distribution Width 18.0 % (11.5-14.5) Platelet Count 79 x10^3/uL (140-400) Prothrombin Time 37.3 SEC (11.7-14.0) Prothromb Time International Ratio 3.8 (0.8-1.1) Sodium Level 134 mmol/L (136-145) Potassium Level 3.9 mmol/L (3.5-5.1) Chloride Level 100 mmol/L (98-107) Carbon Dioxide Level 22 mmol/L (21-32) Anion Gap 12 (6-14) Blood Urea Nitrogen 40 mg/dL (8-26) Creatinine 2.6 mg/dL (0.7-1.3) Estimated GFR (Cockcroft-Gault) 24.0 BUN/Creatinine Ratio 15 (6-20) Glucose Level 176 mg/dL (70-99) Calcium Level 7.2 mg/dL (8.5-10.1) Phosphorus Level 4.6 mg/dL (2.6-4.7) Magnesium Level 2.6 mg/dL (1.8-2.4) Total Bilirubin 8.0 mg/dL (0.2-1.0) Aspartate Amino Transf (AST/SGOT) 3393 U/L (15-37) Alanine Aminotransferase (ALT/SGPT) 3008 U/L (16-63) Alkaline Phosphatase 124 U/L (46-116) Total Protein 5.6 g/dL (6.4-8.2) Albumin 2.4 g/dL (3.4-5.0) Albumin/Globulin Ratio 0.8 (1.0-1.7) O2 Saturation 99 % (92-99) Arterial Blood pH 7.43 (7.35-7.45) Arterial Blood pCO2 at Patient Temp 29 mmHg (35-46) Arterial Blood pO2 at Patient Temp 158 mmHg (65-108) Arterial Blood HCO3 18 mmol/L (21-28) Arterial Blood Base Excess -5 mmol/L (-3-3) FiO2 60 Results All relevant outside records, renal labs, imaging studies, telemetry/EKG's were reviewed. JAMEL LOPEZ MD Sep 13, 2019 09:30
[2019-09-13 10:46] LABS: CALCIUM 6.7 mg/dL (8.5-10.1); CREATININE 2.5 mg/dL (0.7-1.3); GFR 25.1; MAGNESIUM 2.4 mg/dL (1.8-2.4)
--- NOTE | 2019-09-13 11:36 | PN ---
DATE: 09/13/2019 SUBJECTIVE: The patient continues to be intubated, mechanically ventilated. He is on Levophed and vasopressin, although at a lower dose maintaining his mean arterial pressure of 70 mmHg. He continues to be on continuous renal replacement therapy. His FiO2 is down to 50% from 90%. His bicarbonate has normalized. His bicarbonate drip was discontinued. His liver enzymes also have improved from 6000, down to 3000. PHYSICAL EXAMINATION: GENERAL: When I examined him this morning, he was resting flat in bed, in no apparent distress. He is on Estephania Hugger. He is pale, but no jaundice, cyanosis or thyromegaly. No jugular venous distention. No limb edema. VITAL SIGNS: His heart rate was 80, blood pressure was 102/52, temperature was 96.4, respiratory rate was 30 and oxygen saturation was 98% on FiO2 of 50%. HEAD, EYES, EARS, NOSE AND THROAT: Showed normocephalic, atraumatic. He has an orotracheal and orogastric tube in place. NECK: Supple. HEART: Showed normal first and second heart sounds. No gallop or murmur. CHEST: Shows central trachea, equally reduced expansion, air entry, vesicular sounds with bilateral basal crepitation. ABDOMEN: Distended, soft, nontender. No guarding or rigidity. No organomegaly. All hernial orifice intact. Bowel sounds normal. NEUROLOGIC: He is heavily sedated. His intake over the last 24 hours was 2450, his output was only 250. LABORATORY DATA: His lab work this morning showed a serum sodium 134, potassium 3.9, chloride 100, bicarbonate 22, anion gap of 12, BUN 40, creatinine 2.6. Estimated GFR was 24 mL per minute, his glucose 176, calcium was 7.2, phosphorus was 4.6. His magnesium was 2.6. Total bilirubin was 8. AST and ALT were elevated, but trending down and his alkaline phosphatase slightly elevated at 24. Total protein was 5.6, albumin was 2.4. His blood gases this morning showed a pH of 7.43, pCO2 of 29, pO2 of 158, bicarbonate 18 and oxygen saturation was 99% on FiO2 of 50%. His white cell count was 47,600, hemoglobin 10.7, hematocrit 33, MCV 73 and his platelets are 79,000. ASSESSMENT: 1. Acute kidney injury, most likely due to acute tubular necrosis secondary to sepsis. He continues to be completely anuric, currently on continuous renal replacement therapy and tolerating it well. 2. Sepsis for which he is on antibiotic in the form of levofloxacin. 3. He has hyperkalemia that has resolved; metabolic acidosis, improved. His bicarbonate has normalized. 4. Hypotension. Continues to be on Levophed and vasopressors, low dose. 5. Impaired liver enzymes that are improving. 6. He has pneumonia, rheumatoid arthritis, possible interstitial lung disease and pulmonary fibrosis, has had atrial fibrillation with rapid ventricular response for which he was cardioverted. PLAN: To continue with mechanical ventilation. Continue with continuous renal replacement therapy. Continue with vasopressin and Levophed. INGRIS FINCH MD DR: JOSIANE/jose JOB#: [id number] / [id number]
--- NOTE | 2019-09-13 12:29 | PDOC ---
CARDIOLOGY PROGRESS NOTE SUBJECTIVE: Overnight on CRRT and he had to have increased pressors. FiO2 now in 50% OBJECTIVE: Vital Signs/I&O: Vital Signs Date Time Temp Pulse Resp B/P (MAP) Pulse Ox O2 Delivery O2 Flow Rate FiO2 09/13/19 11:13 98 Ventilator 09/13/19 09:45 96.4 80 30 102/52 (69) 96.4 I & O 09/12/19 09/12/19 09/13/19 15:00 23:00 07:00 Intake Total 150 ml 1717.78 ml 2092 ml Output Total 100 ml 3 ml Balance 150 ml 1617.78 ml 2089 ml Objective: Sedated/intubated Fixed pupils. Irregular heart tones Diffuse rhonchi Soft abdomen No edema. CURRENT MEDICATIONS: meds reviewed DIAGNOSTIC TESTING: Labs reviewed. Plt 79 On CRRT, Cr 2.5 Echo with normal EF of 55% ASSESSMENT: 1. Septic shock, likely secondary to ARDS- Continue treatment per primary/pulmonary 2. PEDRO - continue CRRT 3. Shock liver - Supportive care 4. Afib - Currently rate controlled. No acute need for anticoagulation. 5. DIC due to sepsis. PLAN: 1. Supportive care for now. Discussed with family and nursing. No further CV input at this time. ALEX SMILEY MD Sep 13, 2019 12:29
[2019-09-13] MEDS: VASOPRESSIN 40 UNIT in IV DEXTROSE 5% 100ML 100 ML IV PRN (15:44)
[2019-09-13 16:56] LABS: CREATININE 2.1 mg/dL (0.7-1.3); GFR 30.7; POTASSIUM 4.2 mmol/L (3.5-5.1)
[2019-09-13 17:01] LABS: MAGNESIUM 2.6 mg/dL (1.8-2.4)
--- NOTE | 2019-09-13 18:23 | NUR ---
[id number] dialysate change after lab resulted.( increased to 4K). Continue to monitor and X per orders. Versed remains off,Fentanyl on at 25 mcg w appropriate control.... overt signs of awareness thru day as evidenced by scowls,independent eye opening and arm/.leg movement late afternoon when Fent "temporarily off". Vasopresin w/o rate change off/on past 10 H when map would go below 63. Direct communication with all MDs and family members w questions answered. Small "improvements noted w/o backtracking today. Condition remains guarded. Cont POC w additional antibiotics, Bicarb gtt off, and removal of fluids as of 0900 09/13 w/o BP fluctuations.
[2019-09-13] MEDS ORDERED: PIPERACILLIN/TAZOBACTAM 3.375 GM in IV NORMAL SALINE 50ML 50 ML IV ONE (22:00)
[2019-09-13 23:15] LABS: CALCIUM 7.1 mg/dL (8.5-10.1); CREATININE 1.9 mg/dL (0.7-1.3); GFR 34.5; POTASSIUM 4.3 mmol/L (3.5-5.1)
[2019-09-14] VITALS (25 sets, daily range): BP systolic 102–164; BP diastolic 50–71
[2019-09-14] MEDS: POTASSIUM CHLORIDE 20 MEQ in DIALYSIS SOLUTION BGK 0/2.5 5,000 ML IV SCH ×17 (00:47→21:33)
[2019-09-14 05:29] LABS: HEMATOCRIT 33.4 % (39.0-53.0); HEMOGLOBIN 10.9 g/dL (13.0-17.5); RED BLOOD COUNT 4.6 x10^6/uL (4.30-5.70); RED CELL DISTRIBUTION WIDTH 18.2 % (11.5-14.5); WHITE BLOOD COUNT 36.1 x10^3/uL (4.0-11.0)
[2019-09-14] MEDS: methylPREDNISolone SOD SUCC PF 40 MG/ML VIAL. IV SCH ×3 (05:29→21:21)
[2019-09-14] MEDS: PIPERACILLIN/TAZOBACTAM 3.375 GM in IV NORMAL SALINE 50ML 50 ML IV SCH ×3 (05:30→21:21)
[2019-09-14 06:10] LABS: MAGNESIUM 2.6 mg/dL (1.8-2.4); PHOSPHORUS 3.4 mg/dL (2.6-4.7)
[2019-09-14 06:15] LABS: ALBUMIN 2.1 g/dL (3.4-5.0); ALBUMIN/GLOBULIN RATIO 0.7 (1.0-1.7); CALCIUM 7.1 mg/dL (8.5-10.1); CREATININE 1.9 mg/dL (0.7-1.3); GFR 34.5; POTASSIUM 4.6 mmol/L (3.5-5.1); TOTAL BILIRUBIN 9.3 mg/dL (0.2-1.0); TOTAL PROTEIN 5.2 g/dL (6.4-8.2)
--- NOTE | 2019-09-14 07:26 | NUR ---
[employer] here to evaluate patient CRRT. Fluid removal from last 24 hours has been 200 ml/hr.
--- NOTE | 2019-09-14 07:39 | PDOC ---
Infectious Disease Note Subjective Subjective sedated on vent ROS ROS no n/v/d/fever Vital Sign Vital Signs Vital Signs Date Time Temp Pulse Resp B/P (MAP) Pulse Ox O2 Delivery O2 Flow Rate FiO2 09/14/19 06:17 100 Ventilator 09/14/19 06:00 97.2 104 30 131/60 (83) 97.2 Physical Exam PHYSICAL EXAM GENERAL: orally intubated on vent VITAL SIGNS: stable HEENT: Both pupils are round and reacting. No conjunctival lesion, no lesion in the mouth. NECK: Supple, no JVP, no lymphadenopathy. LUNGS: Clear. HEART: S1, S2 regular. ABDOMEN: Soft, nontender, no organomegaly. EXTREMITIES: No edema, cyanosis. SKIN: Unremarkable. NEUROLOGIC: sedated intubated Labs Lab Laboratory Tests Test 09/13/19 07:50 09/13/19 10:20 09/13/19 10:23 09/13/19 16:30 O2 Saturation 99 % (92-99) Arterial Blood pH 7.43 (7.35-7.45) Arterial Blood pCO2 at Patient Temp 29 mmHg (35-46) Arterial Blood pO2 at Patient Temp 158 mmHg (65-108) Arterial Blood HCO3 18 mmol/L (21-28) Arterial Blood Base Excess -5 mmol/L (-3-3) FiO2 60 Sodium Level 137 mmol/L (136-145) 138 mmol/L (136-145) Potassium Level 4.0 mmol/L (3.5-5.1) 4.2 mmol/L (3.5-5.1) Chloride Level 103 mmol/L (98-107) 104 mmol/L (98-107) Carbon Dioxide Level 23 mmol/L (21-32) 23 mmol/L (21-32) Anion Gap 11 (6-14) 11 (6-14) Blood Urea Nitrogen 39 mg/dL (8-26) 34 mg/dL (8-26) Creatinine 2.5 mg/dL (0.7-1.3) 2.1 mg/dL (0.7-1.3) Estimated GFR (Cockcroft-Gault) 25.1 30.7 Glucose Level 172 mg/dL (70-99) 158 mg/dL (70-99) Calcium Level 6.7 mg/dL (8.5-10.1) 7.0 mg/dL (8.5-10.1) Phosphorus Level 4.0 mg/dL (2.6-4.7) Magnesium Level 2.4 mg/dL (1.8-2.4) 2.6 mg/dL (1.8-2.4) Ferritin > 1000 ng/mL (26-388) Glucose (Fingerstick) 161 mg/dL (70-99) Alkaline Phosphatase 116 U/L (46-116) Test 09/13/19 22:45 09/13/19 22:56 09/14/19 05:12 09/14/19 05:15 Sodium Level 139 mmol/L (136-145) 139 mmol/L (136-145) Potassium Level 4.3 mmol/L (3.5-5.1) 4.6 mmol/L (3.5-5.1) Chloride Level 105 mmol/L (98-107) 105 mmol/L (98-107) Carbon Dioxide Level 25 mmol/L (21-32) 25 mmol/L (21-32) Anion Gap 9 (6-14) 9 (6-14) Blood Urea Nitrogen 30 mg/dL (8-26) 31 mg/dL (8-26) Creatinine 1.9 mg/dL (0.7-1.3) 1.9 mg/dL (0.7-1.3) Estimated GFR (Cockcroft-Gault) 34.5 34.5 Glucose Level 142 mg/dL (70-99) 181 mg/dL (70-99) Calcium Level 7.1 mg/dL (8.5-10.1) 7.1 mg/dL (8.5-10.1) Phosphorus Level 3.1 mg/dL (2.6-4.7) 3.4 mg/dL (2.6-4.7) Magnesium Level 2.8 mg/dL (1.8-2.4) 2.6 mg/dL (1.8-2.4) Glucose (Fingerstick) 139 mg/dL (70-99) 176 mg/dL (70-99) White Blood Count 36.1 x10^3/uL (4.0-11.0) Red Blood Count 4.60 x10^6/uL (4.30-5.70) Hemoglobin 10.9 g/dL (13.0-17.5) Hematocrit 33.4 % (39.0-53.0) Mean Corpuscular Volume 73 fL (79-100) Mean Corpuscular Hemoglobin 24 pg (25-35) Mean Corpuscular Hemoglobin Concent 33 g/dL (31-37) Red Cell Distribution Width 18.2 % (11.5-14.5) Platelet Count 58 x10^3/uL (140-400) BUN/Creatinine Ratio 16 (6-20) Total Bilirubin 9.3 mg/dL (0.2-1.0) Aspartate Amino Transf (AST/SGOT) 1486 U/L (15-37) Alanine Aminotransferase (ALT/SGPT) 2129 U/L (16-63) Alkaline Phosphatase 128 U/L (46-116) Total Protein 5.2 g/dL (6.4-8.2) Albumin 2.1 g/dL (3.4-5.0) Albumin/Globulin Ratio 0.7 (1.0-1.7) Micro BC neg from [place] so far Objective Assessment 1. Respiratory failure. 2. Pulmonary infiltrate. There is no cardiac history. Most likely to be all respiratory infection with acute respiratory distress syndrome. 3. Leukocytosis. 4. Acute kidney injury, multifactorial from hypotension and being sick. 5. History of rheumatoid arthritis, had been on naproxen. 6. Circulatory failure. Plan Plan of Care cont levaquin and zosyn,, and dapto cont supportive care check cultures workup respiratory viral panel prognosis poor VICKI GAN MD Sep 14, 2019 07:39
[2019-09-14] MEDS: DAPTOmycin (GENERIC) IVPB 320 MG in IV NORMAL SALINE 50ML 50 ML IV SCH (08:12)
[2019-09-14] MEDS: ALBUTEROL SULFATE 2.5 MG/3 ML NEBU. NEB SCH ×4 (08:30→19:32)
--- NOTE | 2019-09-14 08:38 | NUR ---
passive range of motion completed.
[2019-09-14] MEDS: PANTOPRAZOLE IV PUSH 40 MG VIAL. IVP SCH (08:40)
[2019-09-14] MEDS: VASOPRESSIN 40 UNIT in IV DEXTROSE 5% 100ML 100 ML IV PRN (08:52)
[2019-09-14] MEDS: DUTASTERIDE 0.5 MG CAPSULE PO SCH ×2 (09:00→11:26)
--- NOTE | 2019-09-14 09:07 | RAD ---
Examination: PORTABLE CHEST 1V History: Pneumonia Comparison/Correlation: 09/12/2019 Portable Chest X-ray Exam Findings: Portable semiupright frontal view of the chest was obtained. Enteric tube and endotracheal tube identified. Large and small bore right central venous catheters are present. No pneumothorax. Pulmonary vasculature congestion is noted. Interstitial infiltrates or edema is decreased in the interval. No significant pleural effusions. Decrease in pleural effusions and interval suspected. Impression: Improved pulmonary aeration. Electronically signed by: Marlo Red MD (09/14/2019 9:04 AM) [facility]
[2019-09-14 09:46] LABS: BASE EXCESS ABG -2 mmol/L (-3-3); HCO3 ABG 22 mmol/L (21-28); PCO2 ABG 32 mmHg (35-46); PO2 ABG 78 mmHg (65-108); SAT O2 ABG 95 % (92-99)
[2019-09-14 09:48] LABS: FIO2 ABG 40
--- NOTE | 2019-09-14 10:53 | PDOC ---
PULMONARY PROGRESS NOTES Subjective INTUBATED 09/11 BY ANESTHESIA NOW AC MODE UNDERGOING CRRT Vitals Vital Signs Date Time Temp Pulse Resp B/P (MAP) Pulse Ox O2 Delivery O2 Flow Rate FiO2 09/14/19 10:40 30 100 Ventilator 09/14/19 10:00 97.2 92 157/67 (97) 97.2 Lungs: Crackles Cardiovascular: S1, S2 Abdomen: Soft Extremities: Other (EDMA ) Skin: Warm Labs Laboratory Tests Test 09/12/19 11:50 09/12/19 16:15 09/12/19 22:15 09/13/19 04:10 Platelet Count 112 x10^3/uL (140-400) 79 x10^3/uL (140-400) Prothrombin Time 45.7 SEC (11.7-14.0) 37.3 SEC (11.7-14.0) Prothromb Time International Ratio 4.9 (0.8-1.1) 3.8 (0.8-1.1) Activated Partial Thromboplast Time 43 SEC (24-38) Fibrinogen 258 mg/dL (200-440) D-Dimer (Kathia) > 20.00 ug/mlFEU Sodium Level 136 mmol/L (136-145) 137 mmol/L (136-145) 134 mmol/L (136-145) Potassium Level 4.3 mmol/L (3.5-5.1) 4.2 mmol/L (3.5-5.1) 3.9 mmol/L (3.5-5.1) Chloride Level 98 mmol/L (98-107) 100 mmol/L (98-107) 100 mmol/L (98-107) Carbon Dioxide Level 18 mmol/L (21-32) 20 mmol/L (21-32) 22 mmol/L (21-32) Anion Gap 20 (6-14) 17 (6-14) 12 (6-14) Blood Urea Nitrogen 60 mg/dL (8-26) 46 mg/dL (8-26) 40 mg/dL (8-26) Creatinine 3.9 mg/dL (0.7-1.3) 3.1 mg/dL (0.7-1.3) 2.6 mg/dL (0.7-1.3) Estimated GFR (Cockcroft-Gault) 15.0 19.6 24.0 BUN/Creatinine Ratio 15 (6-20) 15 (6-20) 15 (6-20) Glucose Level 174 mg/dL (70-99) 177 mg/dL (70-99) 176 mg/dL (70-99) Calcium Level 7.0 mg/dL (8.5-10.1) 7.0 mg/dL (8.5-10.1) 7.2 mg/dL (8.5-10.1) Phosphorus Level 6.9 mg/dL (2.6-4.7) 5.7 mg/dL (2.6-4.7) 4.6 mg/dL (2.6-4.7) Magnesium Level 2.4 mg/dL (1.8-2.4) 2.5 mg/dL (1.8-2.4) 2.6 mg/dL (1.8-2.4) Total Bilirubin 5.7 mg/dL (0.2-1.0) 6.8 mg/dL (0.2-1.0) 8.0 mg/dL (0.2-1.0) Aspartate Amino Transf (AST/SGOT) 4963 U/L (15-37) 4186 U/L (15-37) 3393 U/L (15-37) Alanine Aminotransferase (ALT/SGPT) 3806 U/L (16-63) 3443 U/L (16-63) 3008 U/L (16-63) Alkaline Phosphatase 116 U/L (46-116) 119 U/L (46-116) 124 U/L (46-116) Total Protein 6.0 g/dL (6.4-8.2) 5.7 g/dL (6.4-8.2) 5.6 g/dL (6.4-8.2) Albumin 2.4 g/dL (3.4-5.0) 2.3 g/dL (3.4-5.0) 2.4 g/dL (3.4-5.0) Albumin/Globulin Ratio 0.7 (1.0-1.7) 0.7 (1.0-1.7) 0.8 (1.0-1.7) White Blood Count 47.6 x10^3/uL (4.0-11.0) Red Blood Count 4.52 x10^6/uL (4.30-5.70) Hemoglobin 10.7 g/dL (13.0-17.5) Hematocrit 32.8 % (39.0-53.0) Mean Corpuscular Volume 73 fL (79-100) Mean Corpuscular Hemoglobin 24 pg (25-35) Mean Corpuscular Hemoglobin Concent 33 g/dL (31-37) Red Cell Distribution Width 18.0 % (11.5-14.5) Test 09/13/19 07:50 09/13/19 10:20 09/13/19 10:23 09/13/19 16:30 O2 Saturation 99 % (92-99) Arterial Blood pH 7.43 (7.35-7.45) Arterial Blood pCO2 at Patient Temp 29 mmHg (35-46) Arterial Blood pO2 at Patient Temp 158 mmHg (65-108) Arterial Blood HCO3 18 mmol/L (21-28) Arterial Blood Base Excess -5 mmol/L (-3-3) FiO2 60 Sodium Level 137 mmol/L (136-145) 138 mmol/L (136-145) Potassium Level 4.0 mmol/L (3.5-5.1) 4.2 mmol/L (3.5-5.1) Chloride Level 103 mmol/L (98-107) 104 mmol/L (98-107) Carbon Dioxide Level 23 mmol/L (21-32) 23 mmol/L (21-32) Anion Gap 11 (6-14) 11 (6-14) Blood Urea Nitrogen 39 mg/dL (8-26) 34 mg/dL (8-26) Creatinine 2.5 mg/dL (0.7-1.3) 2.1 mg/dL (0.7-1.3) Estimated GFR (Cockcroft-Gault) 25.1 30.7 Glucose Level 172 mg/dL (70-99) 158 mg/dL (70-99) Calcium Level 6.7 mg/dL (8.5-10.1) 7.0 mg/dL (8.5-10.1) Phosphorus Level 4.0 mg/dL (2.6-4.7) Magnesium Level 2.4 mg/dL (1.8-2.4) 2.6 mg/dL (1.8-2.4) Ferritin > 1000 ng/mL (26-388) Glucose (Fingerstick) 161 mg/dL (70-99) Alkaline Phosphatase 116 U/L (46-116) Test 09/13/19 22:45 09/13/19 22:56 09/14/19 05:12 09/14/19 05:15 Sodium Level 139 mmol/L (136-145) 139 mmol/L (136-145) Potassium Level 4.3 mmol/L (3.5-5.1) 4.6 mmol/L (3.5-5.1) Chloride Level 105 mmol/L (98-107) 105 mmol/L (98-107) Carbon Dioxide Level 25 mmol/L (21-32) 25 mmol/L (21-32) Anion Gap 9 (6-14) 9 (6-14) Blood Urea Nitrogen 30 mg/dL (8-26) 31 mg/dL (8-26) Creatinine 1.9 mg/dL (0.7-1.3) 1.9 mg/dL (0.7-1.3) Estimated GFR (Cockcroft-Gault) 34.5 34.5 Glucose Level 142 mg/dL (70-99) 181 mg/dL (70-99) Calcium Level 7.1 mg/dL (8.5-10.1) 7.1 mg/dL (8.5-10.1) Phosphorus Level 3.1 mg/dL (2.6-4.7) 3.4 mg/dL (2.6-4.7) Magnesium Level 2.8 mg/dL (1.8-2.4) 2.6 mg/dL (1.8-2.4) Glucose (Fingerstick) 139 mg/dL (70-99) 176 mg/dL (70-99) White Blood Count 36.1 x10^3/uL (4.0-11.0) Red Blood Count 4.60 x10^6/uL (4.30-5.70) Hemoglobin 10.9 g/dL (13.0-17.5) Hematocrit 33.4 % (39.0-53.0) Mean Corpuscular Volume 73 fL (79-100) Mean Corpuscular Hemoglobin 24 pg (25-35) Mean Corpuscular Hemoglobin Concent 33 g/dL (31-37) Red Cell Distribution Width 18.2 % (11.5-14.5) Platelet Count 58 x10^3/uL (140-400) BUN/Creatinine Ratio 16 (6-20) Total Bilirubin 9.3 mg/dL (0.2-1.0) Aspartate Amino Transf (AST/SGOT) 1486 U/L (15-37) Alanine Aminotransferase (ALT/SGPT) 2129 U/L (16-63) Alkaline Phosphatase 128 U/L (46-116) Total Protein 5.2 g/dL (6.4-8.2) Albumin 2.1 g/dL (3.4-5.0) Albumin/Globulin Ratio 0.7 (1.0-1.7) Test 09/14/19 09:40 O2 Saturation 95 % (92-99) Arterial Blood pH 7.44 (7.35-7.45) Arterial Blood pCO2 at Patient Temp 32 mmHg (35-46) Arterial Blood pO2 at Patient Temp 78 mmHg (65-108) Arterial Blood HCO3 22 mmol/L (21-28) Arterial Blood Base Excess -2 mmol/L (-3-3) FiO2 40 Laboratory Tests Test 09/13/19 16:30 09/13/19 22:45 09/13/19 22:56 09/14/19 05:12 Sodium Level 138 mmol/L (136-145) 139 mmol/L (136-145) Potassium Level 4.2 mmol/L (3.5-5.1) 4.3 mmol/L (3.5-5.1) Chloride Level 104 mmol/L (98-107) 105 mmol/L (98-107) Carbon Dioxide Level 23 mmol/L (21-32) 25 mmol/L (21-32) Anion Gap 11 (6-14) 9 (6-14) Blood Urea Nitrogen 34 mg/dL (8-26) 30 mg/dL (8-26) Creatinine 2.1 mg/dL (0.7-1.3) 1.9 mg/dL (0.7-1.3) Estimated GFR (Cockcroft-Gault) 30.7 34.5 Glucose Level 158 mg/dL (70-99) 142 mg/dL (70-99) Calcium Level 7.0 mg/dL (8.5-10.1) 7.1 mg/dL (8.5-10.1) Magnesium Level 2.6 mg/dL (1.8-2.4) 2.8 mg/dL (1.8-2.4) Alkaline Phosphatase 116 U/L (46-116) Phosphorus Level 3.1 mg/dL (2.6-4.7) Glucose (Fingerstick) 139 mg/dL (70-99) 176 mg/dL (70-99) Test 09/14/19 05:15 09/14/19 09:40 White Blood Count 36.1 x10^3/uL (4.0-11.0) Red Blood Count 4.60 x10^6/uL (4.30-5.70) Hemoglobin 10.9 g/dL (13.0-17.5) Hematocrit 33.4 % (39.0-53.0) Mean Corpuscular Volume 73 fL (79-100) Mean Corpuscular Hemoglobin 24 pg (25-35) Mean Corpuscular Hemoglobin Concent 33 g/dL (31-37) Red Cell Distribution Width 18.2 % (11.5-14.5) Platelet Count 58 x10^3/uL (140-400) Sodium Level 139 mmol/L (136-145) Potassium Level 4.6 mmol/L (3.5-5.1) Chloride Level 105 mmol/L (98-107) Carbon Dioxide Level 25 mmol/L (21-32) Anion Gap 9 (6-14) Blood Urea Nitrogen 31 mg/dL (8-26) Creatinine 1.9 mg/dL (0.7-1.3) Estimated GFR (Cockcroft-Gault) 34.5 BUN/Creatinine Ratio 16 (6-20) Glucose Level 181 mg/dL (70-99) Calcium Level 7.1 mg/dL (8.5-10.1) Phosphorus Level 3.4 mg/dL (2.6-4.7) Magnesium Level 2.6 mg/dL (1.8-2.4) Total Bilirubin 9.3 mg/dL (0.2-1.0) Aspartate Amino Transf (AST/SGOT) 1486 U/L (15-37) Alanine Aminotransferase (ALT/SGPT) 2129 U/L (16-63) Alkaline Phosphatase 128 U/L (46-116) Total Protein 5.2 g/dL (6.4-8.2) Albumin 2.1 g/dL (3.4-5.0) Albumin/Globulin Ratio 0.7 (1.0-1.7) O2 Saturation 95 % (92-99) Arterial Blood pH 7.44 (7.35-7.45) Arterial Blood pCO2 at Patient Temp 32 mmHg (35-46) Arterial Blood pO2 at Patient Temp 78 mmHg (65-108) Arterial Blood HCO3 22 mmol/L (21-28) Arterial Blood Base Excess -2 mmol/L (-3-3) FiO2 40 Medications Active Scripts Medications Dose Route/Sig Max Daily Dose Days Date Category Naproxen 500 Mg Tablet 1 Tab PO PRN BID PRN 30 09/10/19 Reported Avodart (Dutasteride) 0.5 Mg Capsule 1 Cap PO DAILY 09/10/19 Reported Impression . IMPRESSION: 1. Acute hypoxemic respiratory failure/ARDS 2. SEPTIC SHOCK 3. Abnormal CT chest revealing bilateral pulmonary infiltrates. 4. Pneumonia, suspect gram-negative, gram-positive. 5. Possible acute pulmonary edema. 6. Possible interstitial lung disease/pulmonary fibrosis. 7. History of rheumatoid arthritis. 8. Atrial fibrillation with rapid ventricular response. 9. ACUTE MET ACIDOSIS 10. ACUTE RENAL FAILURE 11. ACUTE BLOOD LOSS ANEMIA VS DIC 12. ACUTE KIDNEY INJURY Impression: Improved pulmonary aeration. Plan . NUMBERS ARE BETTER FI02 DOWN TO 40 WILL CONTINUE SUPPORT WITH VENT CRRT STARTED ANTIBX PER ID START TF DVT AND GI PROPH CONSULT HEME DONE APPRECIATED INCREASE I E RATION PEEP AT 7 DECREASE 02 CCT IN 30 MINUTES/ REVIEWING DATA/XRAYS/FORMULATING A PLAN D/W AND SONS FROM OUT OF TOWN VIRGEN ROME MD Sep 14, 2019 10:53
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
[2019-09-14 11:49] LABS: HEMOGLOBIN 11.2 g/dL (13.0-17.5); RED BLOOD COUNT 4.8 x10^6/uL (4.30-5.70); RED CELL DISTRIBUTION WIDTH 18.7 % (11.5-14.5); WHITE BLOOD COUNT 35.7 x10^3/uL (4.0-11.0)
[2019-09-14 11:58] LABS: PROTHROMBIN TIME PATIENT 31.6 SEC (11.7-14.0)
--- NOTE | 2019-09-14 12:19 | PDOC ---
PROGRESS NOTES Subjective Subjective HPI -f/u of DIC ROS = no bleed Objective Objective Vital Signs Date Time Temp Pulse Resp B/P (MAP) Pulse Ox O2 Delivery O2 Flow Rate FiO2 09/14/19 12:00 130/63 (85) 09/14/19 12:00 Mechanical Ventilator 09/14/19 12:00 97.3 100 30 99 97.3 09/11/19 11:56 15.0 Intake and Output 09/14/19 07:00 Intake Total 1446.4 ml Output Total 13 ml Balance 1433.4 ml Intake Oral 0 ml IV Total 768.4 ml Tube Feeding 488 ml Other 190 ml Output Urine Total 13 ml Physical Exam Heart: Normal S1, Normal S2 Lungs: Clear to auscultation Assessment Assessment Assessment and Plan: He is a 79-year-old man previously relatively healthy other than rheumatoid arthritis that was not on immunosuppressive admitted for pneumonia with A. fib with RVR, lactic acidosis, shock liver, acute kidney inju ry on CRRT, resp failure intubated, sepsis on pressors and multiorgan failure 1. DIC: Can transfuse for hemoglobin less than 7 (s/p 1 unit 09/12/19), would not give platelet transfusion unless platelets less than 10,000 spontaneously or with active bleeding, can give FFP for prolonged PTT (s/p 2 units 09/12/19), can give vitamin K judiciously for elevated INR (s/p 1 mg 09/12/19), with his shock liver injury it will take longer to recover, the main treatment is the underlying disease which he is being treated for with his multidisciplinary approach to sepsis, cryopreciptate can be given to keep fibrinogen greater than 100, currently fibrinogen is 258, would keep an eye on CBC and DIC panel and give transfusions as needed. Plt worse at 79 on 09/13/19. Plt worse at 58 on 09/14/19. No bleed 2. Leukocytosis - reactive, monitor. 13% bands suggestive of infectious etiology. 3. Respiratory failure: Intubated, per pulmonary 4. A. fib with RVR: Cardiology is involved 5. Sepsis: ID is involved, multiple antibiotics, pressors. I d/w Dr Loza. 6. Acute kidney injury: On CRRT, nephrology is involved 7. Coagulopathy - plan vit K 10 mg 09/14/19. 8. Prognosis: Poor with multiorgan failure Comment Review of Relevant I have reviewed the following items dionicio (where applicable) has been applied. Labs Laboratory Tests Test 09/12/19 16:15 09/12/19 22:15 09/13/19 04:10 09/13/19 07:50 Sodium Level 136 mmol/L (136-145) 137 mmol/L (136-145) 134 mmol/L (136-145) Potassium Level 4.3 mmol/L (3.5-5.1) 4.2 mmol/L (3.5-5.1) 3.9 mmol/L (3.5-5.1) Chloride Level 98 mmol/L (98-107) 100 mmol/L (98-107) 100 mmol/L (98-107) Carbon Dioxide Level 18 mmol/L (21-32) 20 mmol/L (21-32) 22 mmol/L (21-32) Anion Gap 20 (6-14) 17 (6-14) 12 (6-14) Blood Urea Nitrogen 60 mg/dL (8-26) 46 mg/dL (8-26) 40 mg/dL (8-26) Creatinine 3.9 mg/dL (0.7-1.3) 3.1 mg/dL (0.7-1.3) 2.6 mg/dL (0.7-1.3) Estimated GFR (Cockcroft-Gault) 15.0 19.6 24.0 BUN/Creatinine Ratio 15 (6-20) 15 (6-20) 15 (6-20) Glucose Level 174 mg/dL (70-99) 177 mg/dL (70-99) 176 mg/dL (70-99) Calcium Level 7.0 mg/dL (8.5-10.1) 7.0 mg/dL (8.5-10.1) 7.2 mg/dL (8.5-10.1) Phosphorus Level 6.9 mg/dL (2.6-4.7) 5.7 mg/dL (2.6-4.7) 4.6 mg/dL (2.6-4.7) Magnesium Level 2.4 mg/dL (1.8-2.4) 2.5 mg/dL (1.8-2.4) 2.6 mg/dL (1.8-2.4) Total Bilirubin 5.7 mg/dL (0.2-1.0) 6.8 mg/dL (0.2-1.0) 8.0 mg/dL (0.2-1.0) Aspartate Amino Transf (AST/SGOT) 4963 U/L (15-37) 4186 U/L (15-37) 3393 U/L (15-37) Alanine Aminotransferase (ALT/SGPT) 3806 U/L (16-63) 3443 U/L (16-63) 3008 U/L (16-63) Alkaline Phosphatase 116 U/L (46-116) 119 U/L (46-116) 124 U/L (46-116) Total Protein 6.0 g/dL (6.4-8.2) 5.7 g/dL (6.4-8.2) 5.6 g/dL (6.4-8.2) Albumin 2.4 g/dL (3.4-5.0) 2.3 g/dL (3.4-5.0) 2.4 g/dL (3.4-5.0) Albumin/Globulin Ratio 0.7 (1.0-1.7) 0.7 (1.0-1.7) 0.8 (1.0-1.7) White Blood Count 47.6 x10^3/uL (4.0-11.0) Red Blood Count 4.52 x10^6/uL (4.30-5.70) Hemoglobin 10.7 g/dL (13.0-17.5) Hematocrit 32.8 % (39.0-53.0) Mean Corpuscular Volume 73 fL (79-100) Mean Corpuscular Hemoglobin 24 pg (25-35) Mean Corpuscular Hemoglobin Concent 33 g/dL (31-37) Red Cell Distribution Width 18.0 % (11.5-14.5) Platelet Count 79 x10^3/uL (140-400) Prothrombin Time 37.3 SEC (11.7-14.0) Prothromb Time International Ratio 3.8 (0.8-1.1) O2 Saturation 99 % (92-99) Arterial Blood pH 7.43 (7.35-7.45) Arterial Blood pCO2 at Patient Temp 29 mmHg (35-46) Arterial Blood pO2 at Patient Temp 158 mmHg (65-108) Arterial Blood HCO3 18 mmol/L (21-28) Arterial Blood Base Excess -5 mmol/L (-3-3) FiO2 60 Test 09/13/19 10:20 09/13/19 10:23 09/13/19 16:30 09/13/19 22:45 Sodium Level 137 mmol/L (136-145) 138 mmol/L (136-145) 139 mmol/L (136-145) Potassium Level 4.0 mmol/L (3.5-5.1) 4.2 mmol/L (3.5-5.1) 4.3 mmol/L (3.5-5.1) Chloride Level 103 mmol/L (98-107) 104 mmol/L (98-107) 105 mmol/L (98-107) Carbon Dioxide Level 23 mmol/L (21-32) 23 mmol/L (21-32) 25 mmol/L (21-32) Anion Gap 11 (6-14) 11 (6-14) 9 (6-14) Blood Urea Nitrogen 39 mg/dL (8-26) 34 mg/dL (8-26) 30 mg/dL (8-26) Creatinine 2.5 mg/dL (0.7-1.3) 2.1 mg/dL (0.7-1.3) 1.9 mg/dL (0.7-1.3) Estimated GFR (Cockcroft-Gault) 25.1 30.7 34.5 Glucose Level 172 mg/dL (70-99) 158 mg/dL (70-99) 142 mg/dL (70-99) Calcium Level 6.7 mg/dL (8.5-10.1) 7.0 mg/dL (8.5-10.1) 7.1 mg/dL (8.5-10.1) Phosphorus Level 4.0 mg/dL (2.6-4.7) 3.1 mg/dL (2.6-4.7) Magnesium Level 2.4 mg/dL (1.8-2.4) 2.6 mg/dL (1.8-2.4) 2.8 mg/dL (1.8-2.4) Ferritin > 1000 ng/mL (26-388) Glucose (Fingerstick) 161 mg/dL (70-99) Alkaline Phosphatase 116 U/L (46-116) Test 09/13/19 22:56 09/14/19 05:12 09/14/19 05:15 09/14/19 09:40 Glucose (Fingerstick) 139 mg/dL (70-99) 176 mg/dL (70-99) White Blood Count 36.1 x10^3/uL (4.0-11.0) Red Blood Count 4.60 x10^6/uL (4.30-5.70) Hemoglobin 10.9 g/dL (13.0-17.5) Hematocrit 33.4 % (39.0-53.0) Mean Corpuscular Volume 73 fL (79-100) Mean Corpuscular Hemoglobin 24 pg (25-35) Mean Corpuscular Hemoglobin Concent 33 g/dL (31-37) Red Cell Distribution Width 18.2 % (11.5-14.5) Platelet Count 58 x10^3/uL (140-400) Sodium Level 139 mmol/L (136-145) Potassium Level 4.6 mmol/L (3.5-5.1) Chloride Level 105 mmol/L (98-107) Carbon Dioxide Level 25 mmol/L (21-32) Anion Gap 9 (6-14) Blood Urea Nitrogen 31 mg/dL (8-26) Creatinine 1.9 mg/dL (0.7-1.3) Estimated GFR (Cockcroft-Gault) 34.5 BUN/Creatinine Ratio 16 (6-20) Glucose Level 181 mg/dL (70-99) Calcium Level 7.1 mg/dL (8.5-10.1) Phosphorus Level 3.4 mg/dL (2.6-4.7) Magnesium Level 2.6 mg/dL (1.8-2.4) Total Bilirubin 9.3 mg/dL (0.2-1.0) Aspartate Amino Transf (AST/SGOT) 1486 U/L (15-37) Alanine Aminotransferase (ALT/SGPT) 2129 U/L (16-63) Alkaline Phosphatase 128 U/L (46-116) Total Protein 5.2 g/dL (6.4-8.2) Albumin 2.1 g/dL (3.4-5.0) Albumin/Globulin Ratio 0.7 (1.0-1.7) O2 Saturation 95 % (92-99) Arterial Blood pH 7.44 (7.35-7.45) Arterial Blood pCO2 at Patient Temp 32 mmHg (35-46) Arterial Blood pO2 at Patient Temp 78 mmHg (65-108) Arterial Blood HCO3 22 mmol/L (21-28) Arterial Blood Base Excess -2 mmol/L (-3-3) FiO2 40 Test 09/14/19 11:15 White Blood Count 35.7 x10^3/uL (4.0-11.0) Red Blood Count 4.80 x10^6/uL (4.30-5.70) Hemoglobin 11.2 g/dL (13.0-17.5) Hematocrit 35.0 % (39.0-53.0) Mean Corpuscular Volume 73 fL (79-100) Mean Corpuscular Hemoglobin 23 pg (25-35) Mean Corpuscular Hemoglobin Concent 32 g/dL (31-37) Red Cell Distribution Width 18.7 % (11.5-14.5) Platelet Count 60 x10^3/uL (140-400) Prothrombin Time 31.6 SEC (11.7-14.0) Prothromb Time International Ratio 3.1 (0.8-1.1) Activated Partial Thromboplast Time 35 SEC (24-38) Fibrinogen 189 mg/dL (200-440) Laboratory Tests Test 09/13/19 16:30 09/13/19 22:45 09/13/19 22:56 09/14/19 05:12 Sodium Level 138 mmol/L (136-145) 139 mmol/L (136-145) Potassium Level 4.2 mmol/L (3.5-5.1) 4.3 mmol/L (3.5-5.1) Chloride Level 104 mmol/L (98-107) 105 mmol/L (98-107) Carbon Dioxide Level 23 mmol/L (21-32) 25 mmol/L (21-32) Anion Gap 11 (6-14) 9 (6-14) Blood Urea Nitrogen 34 mg/dL (8-26) 30 mg/dL (8-26) Creatinine 2.1 mg/dL (0.7-1.3) 1.9 mg/dL (0.7-1.3) Estimated GFR (Cockcroft-Gault) 30.7 34.5 Glucose Level 158 mg/dL (70-99) 142 mg/dL (70-99) Calcium Level 7.0 mg/dL (8.5-10.1) 7.1 mg/dL (8.5-10.1) Magnesium Level 2.6 mg/dL (1.8-2.4) 2.8 mg/dL (1.8-2.4) Alkaline Phosphatase 116 U/L (46-116) Phosphorus Level 3.1 mg/dL (2.6-4.7) Glucose (Fingerstick) 139 mg/dL (70-99) 176 mg/dL (70-99) Test 09/14/19 05:15 09/14/19 09:40 09/14/19 11:15 White Blood Count 36.1 x10^3/uL (4.0-11.0) 35.7 x10^3/uL (4.0-11.0) Red Blood Count 4.60 x10^6/uL (4.30-5.70) 4.80 x10^6/uL (4.30-5.70) Hemoglobin 10.9 g/dL (13.0-17.5) 11.2 g/dL (13.0-17.5) Hematocrit 33.4 % (39.0-53.0) 35.0 % (39.0-53.0) Mean Corpuscular Volume 73 fL (79-100) 73 fL (79-100) Mean Corpuscular Hemoglobin 24 pg (25-35) 23 pg (25-35) Mean Corpuscular Hemoglobin Concent 33 g/dL (31-37) 32 g/dL (31-37) Red Cell Distribution Width 18.2 % (11.5-14.5) 18.7 % (11.5-14.5) Platelet Count 58 x10^3/uL (140-400) 60 x10^3/uL (140-400) Sodium Level 139 mmol/L (136-145) Potassium Level 4.6 mmol/L (3.5-5.1) Chloride Level 105 mmol/L (98-107) Carbon Dioxide Level 25 mmol/L (21-32) Anion Gap 9 (6-14) Blood Urea Nitrogen 31 mg/dL (8-26) Creatinine 1.9 mg/dL (0.7-1.3) Estimated GFR (Cockcroft-Gault) 34.5 BUN/Creatinine Ratio 16 (6-20) Glucose Level 181 mg/dL (70-99) Calcium Level 7.1 mg/dL (8.5-10.1) Phosphorus Level 3.4 mg/dL (2.6-4.7) Magnesium Level 2.6 mg/dL (1.8-2.4) Total Bilirubin 9.3 mg/dL (0.2-1.0) Aspartate Amino Transf (AST/SGOT) 1486 U/L (15-37) Alanine Aminotransferase (ALT/SGPT) 2129 U/L (16-63) Alkaline Phosphatase 128 U/L (46-116) Total Protein 5.2 g/dL (6.4-8.2) Albumin 2.1 g/dL (3.4-5.0) Albumin/Globulin Ratio 0.7 (1.0-1.7) O2 Saturation 95 % (92-99) Arterial Blood pH 7.44 (7.35-7.45) Arterial Blood pCO2 at Patient Temp 32 mmHg (35-46) Arterial Blood pO2 at Patient Temp 78 mmHg (65-108) Arterial Blood HCO3 22 mmol/L (21-28) Arterial Blood Base Excess -2 mmol/L (-3-3) FiO2 40 Prothrombin Time 31.6 SEC (11.7-14.0) Prothromb Time International Ratio 3.1 (0.8-1.1) Activated Partial Thromboplast Time 35 SEC (24-38) Fibrinogen 189 mg/dL (200-440) Microbiology 09/12/19 Blood Culture - Preliminary, Resulted NO GROWTH AFTER 1 DAY 09/12/19 - Final, Resulted 09/12/19 - Final, Resulted 09/12/19 - Final, Resulted 09/12/19 - Preliminary, Resulted 09/12/19 - Preliminary, Resulted 09/12/19 - Preliminary, Resulted 09/12/19 Gram Stain Evaluation - Final, Resulted 09/12/19 Sputum Culture - Preliminary, Resulted 09/12/19 Sputum Result 1 - Final, Resulted Medications Current Medications Amiodarone HCl 450 mg/Dextrose 259 ml @ 17 mls/hr CONT PRN IV SEE I/O RECORD Last administered on 09/11/19at 02:33; Start 10/14/19 at 09:00 Diltiazem HCl 125 mg/Dextrose 125 ml @ 0 mls/hr CONT PRN IV SEE I/O RECORD Last administered on 09/11/19at 05:40; Start 09/10/19 at 06:30 Lactobacillus Rhamnosus (Culturelle) 1 cap BID PO Last administered on 09/11/19at 21:16; Start 09/10/19 at 09:00; Stop 09/12/19 at 09:15; Status DC Ceftriaxone Sodium (Rocephin) 1 gm Q24H IVP Last administered on 09/10/19at 12:55; Start 09/10/19 at 12:00; Stop 09/10/19 at 13:35; Status DC Azithromycin (Zithromax) 250 mg DAILY PO Last administered on 09/10/19at 08:38; Start 09/10/19 at 09:00; Stop 09/10/19 at 13:35; Status DC Dutasteride (Avodart) 0.5 mg DAILY PO Last administered on 09/14/19at 11:26; Start 09/10/19 at 09:00 Naproxen (Naprosyn) 500 mg PRN BID PRN PO MODERATE PAIN 4-6; Start 09/10/19 at 06:30; Stop 09/12/19 at 11:01; Status DC Albuterol Sulfate (Ventolin Neb Soln) 2.5 mg RTQID NEB Last administered on 09/14/19at 08:30; Start 09/10/19 at 08:00 Methylprednisolone Sodium Succinate (SOLU-Medrol 40MG VIAL) 40 mg Q8HRS IV Last administered on 09/14/19at 05:29; Start 09/10/19 at 08:00 Sodium Chloride (Normal Saline Flush) 10 ml QSHIFT PRN IV AFTER MEDS AND BLOOD DRAWS; Start 09/10/19 at 07:00 Influenza Virus Vaccine Quadrival (Afluria Quad 2019-20 (3yr Up) Syringe) 0.5 ml ONCE ONCE VAX IM ; Start 09/11/19 at 09:00; Stop 09/11/19 at 09:01; Status DC Bisacodyl (Dulcolax Supp) 10 mg PRN DAILY PRN NV CONSTIPATION Last administered on 09/10/19at 10:00; Start 09/10/19 at 10:00 Lorazepam (Ativan Inj) 0.5 mg 1X ONCE IVP Last administered on 09/10/19at 11:10; Start 09/10/19 at 11:15; Stop 09/10/19 at 11:16; Status DC Lorazepam (Ativan Inj) 0.5 mg 1X ONCE IVP Last administered on 09/10/19at 11:48; Start 09/10/19 at 11:45; Stop 09/10/19 at 11:47; Status DC Morphine Sulfate (Morphine Sulfate) 5 mg 1X ONCE IV Last administered on 09/10/19at 11:55; Start 09/10/19 at 12:00; Stop 09/10/19 at 12:01; Status DC Morphine Sulfate (Morphine Sulfate) 4 mg 1X ONCE IV Last administered on 09/10/19at 12:56; Start 09/10/19 at 13:00; Stop 09/10/19 at 13:01; Status DC Vancomycin HCl 1 gm/Sodium Chloride 250 ml @ 250 mls/hr Q12H IV ; Start 09/10/19 at 13:30; Status UNV Piperacillin Sod/ Tazobactam Sod 3.375 gm/Sodium Chloride 50 ml @ 100 mls/hr Q6HRS IV Last administered on 09/11/19at 05:39; Start 09/10/19 at 14:00; Stop 09/11/19 at 08:20; Status DC Vancomycin HCl 1.5 gm/Sodium Chloride 500 ml @ 250 mls/hr 1X ONCE IV Last administered on 09/10/19at 16:39; Start 09/10/19 at 14:00; Stop 09/10/19 at 15:59; Status DC Vancomycin HCl (Vanco Per Pharmacy) 1 each PRN DAILY PRN MC SEE COMMENTS Last administered on 09/10/19at 16:55; Start 09/10/19 at 14:00; Stop 09/11/19 at 07:59; Status DC Furosemide (Lasix) 40 mg DAILY IVP ; Start 09/11/19 at 09:00; Stop 09/10/19 at 15:41; Status DC Furosemide (Lasix) 20 mg 1X ONCE IVP ; Start 09/10/19 at 15:45; Stop 09/10/19 at 15:46; Status DC Furosemide (Lasix) 40 mg 1X ONCE IVP Last administered on 09/10/19at 16:38; Start 09/10/19 at 15:45; Stop 09/10/19 at 15:46; Status DC Vancomycin HCl 1 gm/Sodium Chloride 250 ml @ 250 mls/hr Q24H IV ; Start 09/11/19 at 16:30; Stop 09/11/19 at 07:59; Status DC Vancomycin HCl (Vancomycin Trough Level) 1 each 1X ONCE MC ; Start 09/12/19 at 16:00; Stop 09/11/19 at 08:01; Status DC Morphine Sulfate (Morphine Sulfate) 4 mg PRN Q2HR PRN IV PAIN, elevated respirations Last administered on 09/11/19at 20:31; Start 09/10/19 at 21:15 Succinylcholine Chloride (Anectine) 200 mg STK-MED ONCE .ROUTE ; Start 09/11/19 at 08:09; Stop 09/11/19 at 08:09; Status DC Propofol 100 ml @ As Directed STK-MED ONCE IV ; Start 09/11/19 at 08:09; Stop 09/11/19 at 08:09; Status DC Sodium Bicarbonate 100 meq/Dextrose 1,100 ml @ 75 mls/hr [id number] IV Last administered on 09/13/19at 06:03; Start 09/11/19 at 09:00; Stop 09/13/19 at 15:56; Status DC Piperacillin Sod/ Tazobactam Sod 3.375 gm/Sodium Chloride 50 ml @ 100 mls/hr Q8HRS IV Last administered on 09/14/19at 05:30; Start 09/11/19 at 14:00 Levofloxacin/ Dextrose 100 ml @ 100 mls/hr 1X ONCE IV Last administered on at 12:39; Start 09/11/19 at 08:30; Stop 09/11/19 at 09:29; Status DC Levofloxacin/ Dextrose 50 ml @ 50 mls/hr Q24H IV Last administered on 09/11/19at 12:27; Start 09/12/19 at 09:00; Stop 09/11/19 at 16:31; Status DC Fentanyl Citrate 30 ml @ 0 mls/hr CONT PRN IV SEE PROTOCOL Last administered on 09/14/19at 09:42; Start 09/11/19 at 10:15 Propofol 100 ml @ 0 mls/hr CONT PRN IV SEE PROTOCOL; Start 09/11/19 at 10:15; Stop 09/13/19 at 15:56; Status DC Midazolam HCl 100 ml @ 0 mls/hr CONT PRN IV SEE PROTOCOL Last administered on 09/11/19at 11:30; Start 09/11/19 at 10:15 Norepinephrine Bitartrate 250 ml @ 13.81 mls/ hr CONT PRN IV SEE I/O RECORD Last administered on 09/12/19at 10:47; Start 09/11/19 at 10:45 Sodium Bicarbonate (Sodium Bicarb Adult 8.4% Syr) 50 meq STK-MED ONCE .ROUTE ; Start 09/11/19 at 10:49; Stop 09/11/19 at 10:50; Status DC Succinylcholine Chloride (Anectine) 200 mg STK-MED ONCE .ROUTE ; Start 09/11/19 at 10:57; Stop 09/11/19 at 10:57; Status DC Sodium Bicarbonate (Sodium Bicarb Adult 8.4% Syr) 100 meq 1X ONCE IV Last administered on 09/11/19at 11:28; Start 09/11/19 at 11:15; Stop 09/11/19 at 11:16; Status DC Vasopressin 40 unit/Dextrose 102 ml @ 6 mls/hr CONT PRN IV SEE I/O RECORD Last administered on 09/14/19at 08:52; Start 09/11/19 at 11:30 Sodium Chloride 1,000 ml @ 1,770 mls/hr Q34M IV Last administered on 09/11/19at 12:28; Start 09/11/19 at 11:45; Stop 09/11/19 at 12:45; Status DC Lidocaine HCl (Buffered Lidocaine 1%) 3 ml STK-MED ONCE .ROUTE ; Start 09/11/19 at 15:23; Stop 09/11/19 at 15:23; Status DC Epinephrine HCl 4 mg/Sodium Chloride 254 ml @ 28.061 mls/ hr CONT PRN IV SEE I/O RECORD; Start 09/11/19 at 15:45; Stop 09/13/19 at 15:56; Status DC Levofloxacin/ Dextrose 100 ml @ 100 mls/hr Q24H IV Last administered on 09/14/19at 08:52; Start 09/12/19 at 09:00 Lidocaine HCl (Buffered Lidocaine 1%) 3 ml 1X ONCE INJ Last administered on 09/11/19at 17:14; Start 09/11/19 at 17:15; Stop 09/11/19 at 17:16; Status DC Sodium Chloride 500 ml @ 500 mls/hr 1X ONCE IV Last administered on 09/11/19at 21:21; Start 09/11/19 at 21:15; Stop 09/11/19 at 22:14; Status DC Calcium Chloride 12.5 meq/ Bicarbonate Dialysis Soln w/ out KCl 5,008.9286 ml @ 1,000 mls/hr Q5H1M IV ; Start 09/12/19 at 09:00; Stop 09/12/19 at 12:18; Status DC Calcium Chloride 12.5 meq/ Bicarbonate Dialysis Soln w/ out KCl 5,008.9286 ml @ 1,000 mls/hr Q5H1M IV ; Start 09/12/19 at 09:00; Stop 09/12/19 at 10:00; Status DC Calcium Chloride 12.5 meq/ Bicarbonate Dialysis Soln w/ out KCl 5,008.9286 ml @ 1,000 mls/hr Q5H1M IV ; Start 09/12/19 at 09:00; Stop 09/12/19 at 10:02; Status DC Lidocaine HCl (Lta Kit) 4 ml STK-MED ONCE TP ; Start 09/10/19 at 16:00; Stop 09/12/19 at 09:29; Status DC Calcium Chloride 12.5 meq/ Bicarbonate Dialysis Soln w/ out KCl 5,008.9286 ml @ 1,500 mls/hr Q3H21M IV ; Start 09/12/19 at 12:00; Stop 09/12/19 at 11:28; Status DC Calcium Chloride 12.5 meq/ Bicarbonate Dialysis Soln w/ out KCl 5,008.9286 ml @ 1,500 mls/hr Q3H21M IV ; Start 09/12/19 at 12:00; Stop 09/12/19 at 11:30; Status DC Pantoprazole Sodium (PROTONIX VIAL for IV PUSH) 40 mg DAILYAC IVP Last administered on 09/14/19at 08:40; Start 09/12/19 at 12:00 Calcium Chloride 12.5 meq/ Bicarbonate Dialysis Soln w/ out KCl 5,008.9286 ml @ 1,000 mls/hr Q5H1M IV ; Start 09/12/19 at 13:00; Stop 09/12/19 at 12:18; Status DC Calcium Chloride 12.5 meq/ Bicarbonate Dialysis Soln w/ out KCl 5,008.9286 ml @ 1,000 mls/hr Q5H1M IV ; Start 09/12/19 at 13:00; Stop 09/12/19 at 12:18; Status DC Potassium Chloride 10 meq/ Bicarbonate Dialysis Soln w/ out KCl 5,005 ml @ 1,000 mls/hr Q5H1M IV Last administered on 09/13/19at 06:04; Start 09/12/19 at 13:00; Stop 09/13/19 at 08:35; Status DC Potassium Chloride 10 meq/ Bicarbonate Dialysis Soln w/ out KCl 5,005 ml @ 1,000 mls/hr Q5H1M IV Last administered on 09/13/19at 06:04; Start 09/12/19 at 12:30; Stop 09/13/19 at 08:37; Status DC Potassium Chloride 10 meq/ Bicarbonate Dialysis Soln w/ out KCl 5,005 ml @ 1,000 mls/hr Q5H1M IV Last administered on 09/13/19at 06:05; Start 09/12/19 at 13:00; Stop 09/13/19 at 08:36; Status DC Fentanyl Citrate (Fentanyl 600 Mcg/30 ml SANITARY AIDE) 600 mcg STK-MED ONCE IV ; Start 09/11/19 at 11:28; Stop 09/12/19 at 15:46; Status DC Phytonadione 1 mg/ Dextrose 50.1 ml @ 102 mls/hr 1X ONCE IV Last administered on 09/12/19at 17:07; Start 09/12/19 at 17:00; Stop 09/12/19 at 17:29; Status DC Daptomycin 320 mg/ Sodium Chloride 50 ml @ 100 mls/hr Q24H IV Last administered on 09/14/19at 08:12; Start 09/13/19 at 08:00 Potassium Chloride 20 meq/ Bicarbonate Dialysis Soln w/ out KCl 5,010 ml @ 1,000 mls/hr Q5H1M IV Last administered on 09/14/19at 11:29; Start 09/13/19 at 09:00 Potassium Chloride 20 meq/ Bicarbonate Dialysis Soln w/ out KCl 5,010 ml @ 1,000 mls/hr Q5H1M IV Last administered on 09/14/19at 11:29; Start 09/13/19 at 08:45 Potassium Chloride 20 meq/ Bicarbonate Dialysis Soln w/ out KCl 5,010 ml @ 1,000 mls/hr Q5H1M IV Last administered on 09/14/19at 11:28; Start 09/13/19 at 08:45 Piperacillin Sod/ Tazobactam Sod 3.375 gm/Sodium Chloride 50 ml @ 100 mls/hr 1X ONCE IV Last administered on 09/13/19at 22:27; Start 09/13/19 at 22:00; Stop 09/13/19 at 22:29; Status DC Active Scripts Active Reported Naproxen 500 Mg Tablet 1 Tab PO PRN BID PRN 30 Days Avodart (Dutasteride) 0.5 Mg Capsule 1 Cap PO DAILY Vitals/I & O Vital Sign - Last 24 Hours 09/13/19 09/13/19 09/13/19 09/13/19 12:30 12:59 13:00 13:30 Temp 96.4 96.4 96.4 96.4 96.4 96.4 Pulse 82 84 80 Resp 30 30 30 B/P (MAP) 112/54 (73) 108/50 (69) Pulse Ox 98 96 99 98 O2 Delivery Ventilator Ventilator Ventilator Ventilator 09/13/19 09/13/19 09/13/19 09/13/19 14:00 14:30 15:00 15:25 Temp 96.8 97.2 96.8 96.8 97.2 96.8 Pulse 76 90 92 Resp 30 30 30 B/P (MAP) 108/54 (72) 110/58 (75) 120/60 (80) Pulse Ox 99 100 95 98 O2 Delivery Ventilator Ventilator Ventilator Ventilator 09/13/19 09/13/19 09/13/19 09/13/19 16:00 16:00 16:00 16:59 Temp 96.8 96.8 Pulse 80 Resp 30 B/P (MAP) 125/64 (84) Pulse Ox 98 96 O2 Delivery Ventilator Mechanical Ventilator Ventilator 09/13/19 09/13/19 09/13/19 09/13/19 17:00 17:30 18:00 19:00 Temp 96.8 96.8 96.8 96.8 96.8 96.8 96.8 96.8 Pulse 92 90 89 90 Resp 30 30 30 30 B/P (MAP) 132/66 (88) 136/66 (89) 105/47 (66) 102/52 (69) Pulse Ox 96 98 100 100 O2 Delivery Ventilator Ventilator Ventilator Ventilator 09/13/19 09/13/19 09/13/19 09/13/19 19:52 20:00 20:00 20:00 Temp 97.7 97.7 Pulse 88 Resp 30 B/P (MAP) 96/49 (65) 96/49 (65) Pulse Ox 100 100 O2 Delivery Ventilator Mechanical Ventilator Ventilator 09/13/19 09/13/19 09/13/19 09/13/19 21:00 22:00 23:00 23:59 Temp 97.9 97.7 97.3 97.9 97.7 97.3 Pulse 92 92 97 Resp 30 30 30 B/P (MAP) 90/50 (63) 104/42 (62) 146/68 (94) Pulse Ox 100 100 100 O2 Delivery Ventilator Ventilator Ventilator Mechanical Ventilator 09/14/19 09/14/19 09/14/19 09/14/19 00:00 00:01 00:03 01:00 Temp 97.3 97.5 97.3 97.5 Pulse 85 90 Resp 30 30 B/P (MAP) 164/61 (95) 164/61 (95) 133/60 (84) Pulse Ox 100 100 100 O2 Delivery Ventilator Ventilator Ventilator 09/14/19 09/14/19 09/14/19 09/14/19 02:00 02:00 03:00 04:00 Temp 97.3 97.2 97.3 97.2 Pulse 104 95 Resp 30 30 B/P (MAP) 123/60 (81) 130/66 (87) 131/60 (83) Pulse Ox 100 100 100 O2 Delivery Ventilator Ventilator Ventilator 09/14/19 09/14/19 09/14/19 09/14/19 04:00 04:00 04:23 05:00 Temp 97.2 97.2 97.2 97.2 Pulse 96 105 Resp 30 30 B/P (MAP) 131/60 (83) 131/66 (87) Pulse Ox 100 100 100 O2 Delivery Mechanical Ventilator Ventilator Ventilator Ventilator 09/14/19 09/14/19 09/14/19 09/14/19 06:00 06:17 07:00 08:00 Temp 97.2 97.2 97.2 97.2 Pulse 104 92 Resp 30 30 B/P (MAP) 131/60 (83) 125/64 (84) 115/50 (71) Pulse Ox 100 100 100 O2 Delivery Ventilator Ventilator Ventilator Mechanical Ventilator 09/14/19 09/14/19 09/14/19 09/14/19 08:00 08:00 08:31 09:00 Temp 97.0 97.0 Pulse 90 96 Resp 30 30 B/P (MAP) 130/63 (85) 130/63 (85) 161/67 (98) Pulse Ox 100 100 100 O2 Delivery Ventilator Ventilator Ventilator 09/14/19 09/14/19 09/14/19 09/14/19 09:42 10:00 10:40 11:00 Temp 97.2 97.3 97.2 97.3 Pulse 92 111 Resp 33 30 30 30 B/P (MAP) 157/67 (97) 154/68 (96) Pulse Ox 100 100 100 99 O2 Delivery Ventilator Ventilator Ventilator Ventilator 09/14/19 09/14/19 09/14/19 12:00 12:00 12:00 Temp 97.3 97.3 Pulse 100 Resp 30 B/P (MAP) 113/63 (80) 130/63 (85) Pulse Ox 99 O2 Delivery Ventilator Mechanical Ventilator Intake and Output 09/13/19 09/13/19 09/14/19 15:00 23:00 07:00 Intake Total 325 ml 420 ml 701.4 ml Output Total 3 ml 10 ml 0 ml Balance 322 ml 410 ml 701.4 ml JANI BARRIOS MD Sep 14, 2019 12:19
[2019-09-14 12:21] LABS: ALBUMIN 2.1 g/dL (3.4-5.0); ALBUMIN/GLOBULIN RATIO 0.7 (1.0-1.7); CALCIUM 7.3 mg/dL (8.5-10.1); CREATININE 1.8 mg/dL (0.7-1.3); GFR 36.7; MAGNESIUM 2.8 mg/dL (1.8-2.4); PHOSPHORUS 3.3 mg/dL (2.6-4.7); POTASSIUM 4.4 mmol/L (3.5-5.1); TOTAL BILIRUBIN 10.2 mg/dL (0.2-1.0); TOTAL PROTEIN 5.3 g/dL (6.4-8.2)
[2019-09-14] MEDS ORDERED: PHYTONADIONE 10 MG/ML AMPUL. SQ ONE (12:30)
--- NOTE | 2019-09-14 13:29 | NUR ---
Vasopressin on hold at 1014 since ABP 157/67; restarted Vasopressin at 1230 since ABP down to 79/56; [id number] at 1330 after vasopressin running 12 hour.
[2019-09-14] MEDS: MIDAZOLAM 100mg/100ml NS BAG 100 ML IV PRN (15:03)
[2019-09-14 17:57] LABS: ALBUMIN 2.2 g/dL (3.4-5.0); ALBUMIN/GLOBULIN RATIO 0.6 (1.0-1.7); CALCIUM 7.5 mg/dL (8.5-10.1); CREATININE 1.7 mg/dL (0.7-1.3); GFR 39.2; MAGNESIUM 2.8 mg/dL (1.8-2.4); PHOSPHORUS 2.9 mg/dL (2.6-4.7); POTASSIUM 4.4 mmol/L (3.5-5.1); TOTAL BILIRUBIN 11.4 mg/dL (0.2-1.0); TOTAL PROTEIN 5.7 g/dL (6.4-8.2)
[2019-09-14 23:42] LABS: ALBUMIN 1.9 g/dL (3.4-5.0); ALBUMIN/GLOBULIN RATIO 0.7 (1.0-1.7); CALCIUM 6.9 mg/dL (8.5-10.1); CREATININE 1.6 mg/dL (0.7-1.3); MAGNESIUM 2.7 mg/dL (1.8-2.4); PHOSPHORUS 3.3 mg/dL (2.6-4.7); POTASSIUM 4.2 mmol/L (3.5-5.1); TOTAL BILIRUBIN 10.2 mg/dL (0.2-1.0); TOTAL PROTEIN 4.7 g/dL (6.4-8.2)
[2019-09-15] VITALS (24 sets, daily range): BP systolic 91–142; BP diastolic 45–69
[2019-09-15] MEDS: MIDAZOLAM 100mg/100ml NS BAG 100 ML IV PRN ×2 (00:39→14:24)
[2019-09-15] MEDS: VASOPRESSIN 40 UNIT in IV DEXTROSE 5% 100ML 100 ML IV PRN ×2 (00:39→13:03)
[2019-09-15] MEDS: POTASSIUM CHLORIDE 20 MEQ in DIALYSIS SOLUTION BGK 0/2.5 5,000 ML IV SCH ×15 (03:09→23:55)
[2019-09-15] MEDS: methylPREDNISolone SOD SUCC PF 40 MG/ML VIAL. IV SCH ×3 (05:00→22:55)
[2019-09-15] MEDS: PIPERACILLIN/TAZOBACTAM 3.375 GM in IV NORMAL SALINE 50ML 50 ML IV SCH (05:01)
[2019-09-15 05:59] LABS: HEMATOCRIT 31.5 % (39.0-53.0); HEMOGLOBIN 10.1 g/dL (13.0-17.5); RED BLOOD COUNT 4.3 x10^6/uL (4.30-5.70); RED CELL DISTRIBUTION WIDTH 18.6 % (11.5-14.5); WHITE BLOOD COUNT 28.5 x10^3/uL (4.0-11.0)
--- NOTE | 2019-09-15 06:17 | PDOC ---
PULMONARY PROGRESS NOTES Subjective INTUBATED 09/11 BY ANESTHESIA NOW AC MODE UNDERGOING CRRT on fentanyl, versed, vaso tachypneac Vitals Vital Signs Date Time Temp Pulse Resp B/P (MAP) Pulse Ox O2 Delivery O2 Flow Rate FiO2 09/15/19 05:25 100 Ventilator 09/15/19 05:00 97.7 77 30 116/53 (74) 97.7 09/15/19 02:16 15.0 Comments ros as mentioned as above discussed w rn other sys otherwise neg sedated on vent HEENT: Other (nc at perrl nose clear orally intubated neck no lad no thyromegaly) Lungs: Crackles Cardiovascular: S1, S2 Abdomen: Soft, Non-tender, Other (no mass) Extremities: Other (EDMA ) Skin: Warm Labs Laboratory Tests Test 09/13/19 07:50 09/13/19 10:20 09/13/19 10:23 09/13/19 16:30 O2 Saturation 99 % (92-99) Arterial Blood pH 7.43 (7.35-7.45) Arterial Blood pCO2 at Patient Temp 29 mmHg (35-46) Arterial Blood pO2 at Patient Temp 158 mmHg (65-108) Arterial Blood HCO3 18 mmol/L (21-28) Arterial Blood Base Excess -5 mmol/L (-3-3) FiO2 60 Sodium Level 137 mmol/L (136-145) 138 mmol/L (136-145) Potassium Level 4.0 mmol/L (3.5-5.1) 4.2 mmol/L (3.5-5.1) Chloride Level 103 mmol/L (98-107) 104 mmol/L (98-107) Carbon Dioxide Level 23 mmol/L (21-32) 23 mmol/L (21-32) Anion Gap 11 (6-14) 11 (6-14) Blood Urea Nitrogen 39 mg/dL (8-26) 34 mg/dL (8-26) Creatinine 2.5 mg/dL (0.7-1.3) 2.1 mg/dL (0.7-1.3) Estimated GFR (Cockcroft-Gault) 25.1 30.7 Glucose Level 172 mg/dL (70-99) 158 mg/dL (70-99) Calcium Level 6.7 mg/dL (8.5-10.1) 7.0 mg/dL (8.5-10.1) Phosphorus Level 4.0 mg/dL (2.6-4.7) Magnesium Level 2.4 mg/dL (1.8-2.4) 2.6 mg/dL (1.8-2.4) Ferritin > 1000 ng/mL (26-388) Glucose (Fingerstick) 161 mg/dL (70-99) Alkaline Phosphatase 116 U/L (46-116) Test 09/13/19 22:45 09/13/19 22:56 09/14/19 05:12 09/14/19 05:15 Sodium Level 139 mmol/L (136-145) 139 mmol/L (136-145) Potassium Level 4.3 mmol/L (3.5-5.1) 4.6 mmol/L (3.5-5.1) Chloride Level 105 mmol/L (98-107) 105 mmol/L (98-107) Carbon Dioxide Level 25 mmol/L (21-32) 25 mmol/L (21-32) Anion Gap 9 (6-14) 9 (6-14) Blood Urea Nitrogen 30 mg/dL (8-26) 31 mg/dL (8-26) Creatinine 1.9 mg/dL (0.7-1.3) 1.9 mg/dL (0.7-1.3) Estimated GFR (Cockcroft-Gault) 34.5 34.5 Glucose Level 142 mg/dL (70-99) 181 mg/dL (70-99) Calcium Level 7.1 mg/dL (8.5-10.1) 7.1 mg/dL (8.5-10.1) Phosphorus Level 3.1 mg/dL (2.6-4.7) 3.4 mg/dL (2.6-4.7) Magnesium Level 2.8 mg/dL (1.8-2.4) 2.6 mg/dL (1.8-2.4) Glucose (Fingerstick) 139 mg/dL (70-99) 176 mg/dL (70-99) White Blood Count 36.1 x10^3/uL (4.0-11.0) Red Blood Count 4.60 x10^6/uL (4.30-5.70) Hemoglobin 10.9 g/dL (13.0-17.5) Hematocrit 33.4 % (39.0-53.0) Mean Corpuscular Volume 73 fL (79-100) Mean Corpuscular Hemoglobin 24 pg (25-35) Mean Corpuscular Hemoglobin Concent 33 g/dL (31-37) Red Cell Distribution Width 18.2 % (11.5-14.5) Platelet Count 58 x10^3/uL (140-400) BUN/Creatinine Ratio 16 (6-20) Total Bilirubin 9.3 mg/dL (0.2-1.0) Aspartate Amino Transf (AST/SGOT) 1486 U/L (15-37) Alanine Aminotransferase (ALT/SGPT) 2129 U/L (16-63) Alkaline Phosphatase 128 U/L (46-116) Total Protein 5.2 g/dL (6.4-8.2) Albumin 2.1 g/dL (3.4-5.0) Albumin/Globulin Ratio 0.7 (1.0-1.7) Test 09/14/19 09:40 09/14/19 11:15 09/14/19 17:15 09/14/19 23:00 O2 Saturation 95 % (92-99) Arterial Blood pH 7.44 (7.35-7.45) Arterial Blood pCO2 at Patient Temp 32 mmHg (35-46) Arterial Blood pO2 at Patient Temp 78 mmHg (65-108) Arterial Blood HCO3 22 mmol/L (21-28) Arterial Blood Base Excess -2 mmol/L (-3-3) FiO2 40 White Blood Count 35.7 x10^3/uL (4.0-11.0) Red Blood Count 4.80 x10^6/uL (4.30-5.70) Hemoglobin 11.2 g/dL (13.0-17.5) Hematocrit 35.0 % (39.0-53.0) Mean Corpuscular Volume 73 fL (79-100) Mean Corpuscular Hemoglobin 23 pg (25-35) Mean Corpuscular Hemoglobin Concent 32 g/dL (31-37) Red Cell Distribution Width 18.7 % (11.5-14.5) Platelet Count 60 x10^3/uL (140-400) Prothrombin Time 31.6 SEC (11.7-14.0) Prothromb Time International Ratio 3.1 (0.8-1.1) Activated Partial Thromboplast Time 35 SEC (24-38) Fibrinogen 189 mg/dL (200-440) Sodium Level 140 mmol/L (136-145) 138 mmol/L (136-145) 138 mmol/L (136-145) Potassium Level 4.4 mmol/L (3.5-5.1) 4.4 mmol/L (3.5-5.1) 4.2 mmol/L (3.5-5.1) Chloride Level 104 mmol/L (98-107) 103 mmol/L (98-107) 106 mmol/L (98-107) Carbon Dioxide Level 25 mmol/L (21-32) 26 mmol/L (21-32) 24 mmol/L (21-32) Anion Gap 11 (6-14) 9 (6-14) 8 (6-14) Blood Urea Nitrogen 33 mg/dL (8-26) 32 mg/dL (8-26) 32 mg/dL (8-26) Creatinine 1.8 mg/dL (0.7-1.3) 1.7 mg/dL (0.7-1.3) 1.6 mg/dL (0.7-1.3) Estimated GFR (Cockcroft-Gault) 36.7 39.2 42.0 BUN/Creatinine Ratio 18 (6-20) 19 (6-20) 20 (6-20) Glucose Level 203 mg/dL (70-99) 203 mg/dL (70-99) 245 mg/dL (70-99) Calcium Level 7.3 mg/dL (8.5-10.1) 7.5 mg/dL (8.5-10.1) 6.9 mg/dL (8.5-10.1) Phosphorus Level 3.3 mg/dL (2.6-4.7) 2.9 mg/dL (2.6-4.7) 3.3 mg/dL (2.6-4.7) Magnesium Level 2.8 mg/dL (1.8-2.4) 2.8 mg/dL (1.8-2.4) 2.7 mg/dL (1.8-2.4) Total Bilirubin 10.2 mg/dL (0.2-1.0) 11.4 mg/dL (0.2-1.0) 10.2 mg/dL (0.2-1.0) Aspartate Amino Transf (AST/SGOT) 1296 U/L (15-37) 1146 U/L (15-37) 863 U/L (15-37) Alanine Aminotransferase (ALT/SGPT) 2069 U/L (16-63) 2013 U/L (16-63) 1623 U/L (16-63) Alkaline Phosphatase 131 U/L (46-116) 138 U/L (46-116) 116 U/L (46-116) Total Protein 5.3 g/dL (6.4-8.2) 5.7 g/dL (6.4-8.2) 4.7 g/dL (6.4-8.2) Albumin 2.1 g/dL (3.4-5.0) 2.2 g/dL (3.4-5.0) 1.9 g/dL (3.4-5.0) Albumin/Globulin Ratio 0.7 (1.0-1.7) 0.6 (1.0-1.7) 0.7 (1.0-1.7) Laboratory Tests Test 09/14/19 09:40 09/14/19 11:15 09/14/19 17:15 09/14/19 23:00 O2 Saturation 95 % (92-99) Arterial Blood pH 7.44 (7.35-7.45) Arterial Blood pCO2 at Patient Temp 32 mmHg (35-46) Arterial Blood pO2 at Patient Temp 78 mmHg (65-108) Arterial Blood HCO3 22 mmol/L (21-28) Arterial Blood Base Excess -2 mmol/L (-3-3) FiO2 40 White Blood Count 35.7 x10^3/uL (4.0-11.0) Red Blood Count 4.80 x10^6/uL (4.30-5.70) Hemoglobin 11.2 g/dL (13.0-17.5) Hematocrit 35.0 % (39.0-53.0) Mean Corpuscular Volume 73 fL (79-100) Mean Corpuscular Hemoglobin 23 pg (25-35) Mean Corpuscular Hemoglobin Concent 32 g/dL (31-37) Red Cell Distribution Width 18.7 % (11.5-14.5) Platelet Count 60 x10^3/uL (140-400) Prothrombin Time 31.6 SEC (11.7-14.0) Prothromb Time International Ratio 3.1 (0.8-1.1) Activated Partial Thromboplast Time 35 SEC (24-38) Fibrinogen 189 mg/dL (200-440) Sodium Level 140 mmol/L (136-145) 138 mmol/L (136-145) 138 mmol/L (136-145) Potassium Level 4.4 mmol/L (3.5-5.1) 4.4 mmol/L (3.5-5.1) 4.2 mmol/L (3.5-5.1) Chloride Level 104 mmol/L (98-107) 103 mmol/L (98-107) 106 mmol/L (98-107) Carbon Dioxide Level 25 mmol/L (21-32) 26 mmol/L (21-32) 24 mmol/L (21-32) Anion Gap 11 (6-14) 9 (6-14) 8 (6-14) Blood Urea Nitrogen 33 mg/dL (8-26) 32 mg/dL (8-26) 32 mg/dL (8-26) Creatinine 1.8 mg/dL (0.7-1.3) 1.7 mg/dL (0.7-1.3) 1.6 mg/dL (0.7-1.3) Estimated GFR (Cockcroft-Gault) 36.7 39.2 42.0 BUN/Creatinine Ratio 18 (6-20) 19 (6-20) 20 (6-20) Glucose Level 203 mg/dL (70-99) 203 mg/dL (70-99) 245 mg/dL (70-99) Calcium Level 7.3 mg/dL (8.5-10.1) 7.5 mg/dL (8.5-10.1) 6.9 mg/dL (8.5-10.1) Phosphorus Level 3.3 mg/dL (2.6-4.7) 2.9 mg/dL (2.6-4.7) 3.3 mg/dL (2.6-4.7) Magnesium Level 2.8 mg/dL (1.8-2.4) 2.8 mg/dL (1.8-2.4) 2.7 mg/dL (1.8-2.4) Total Bilirubin 10.2 mg/dL (0.2-1.0) 11.4 mg/dL (0.2-1.0) 10.2 mg/dL (0.2-1.0) Aspartate Amino Transf (AST/SGOT) 1296 U/L (15-37) 1146 U/L (15-37) 863 U/L (15-37) Alanine Aminotransferase (ALT/SGPT) 2069 U/L (16-63) 2013 U/L (16-63) 1623 U/L (16-63) Alkaline Phosphatase 131 U/L (46-116) 138 U/L (46-116) 116 U/L (46-116) Total Protein 5.3 g/dL (6.4-8.2) 5.7 g/dL (6.4-8.2) 4.7 g/dL (6.4-8.2) Albumin 2.1 g/dL (3.4-5.0) 2.2 g/dL (3.4-5.0) 1.9 g/dL (3.4-5.0) Albumin/Globulin Ratio 0.7 (1.0-1.7) 0.6 (1.0-1.7) 0.7 (1.0-1.7) Medications Active Scripts Medications Dose Route/Sig Max Daily Dose Days Date Category Naproxen 500 Mg Tablet 1 Tab PO PRN BID PRN 30 09/10/19 Reported Avodart (Dutasteride) 0.5 Mg Capsule 1 Cap PO DAILY 09/10/19 Reported Comments cxr reviewed ett ok ll infilt Impression . IMPRESSION: 1. Acute hypoxemic respiratory failure/ARDS 2. SEPTIC SHOCK 3. Abnormal CT chest revealing bilateral pulmonary infiltrates. 4. Pneumonia, suspect gram-negative, gram-positive. 5. Possible acute pulmonary edema. 6. Possible interstitial lung disease/pulmonary fibrosis. 7. History of rheumatoid arthritis. 8. Atrial fibrillation with rapid ventricular response. 9. ACUTE MET ACIDOSIS 10. ACUTE RENAL FAILURE 11. ACUTE BLOOD LOSS ANEMIA VS DIC 12. ACUTE KIDNEY INJURY Impression: Improved pulmonary aeration. Plan . cont vent support setting reviewed, tachypneac on vent, not ready for sbt, will review abg change setting per abg FI02 titration to keep sat > 94% CRRT per nephro ANTIBX PER ID zosyn changed to to merrem, cont levaquin and dapto TF DVT AND GI PROPH cont solumedrol 40 q 8hrs discussed BRAULIO Garcia MD Sep 15, 2019 06:17
[2019-09-15 06:46] LABS: ALBUMIN 1.8 g/dL (3.4-5.0); ALBUMIN/GLOBULIN RATIO 0.6 (1.0-1.7); CALCIUM 7.2 mg/dL (8.5-10.1); CREATININE 1.5 mg/dL (0.7-1.3); GFR 45.3; PHOSPHORUS 3.1 mg/dL (2.6-4.7); POTASSIUM 4.3 mmol/L (3.5-5.1); TOTAL BILIRUBIN 10.1 mg/dL (0.2-1.0); TOTAL PROTEIN 4.9 g/dL (6.4-8.2)
[2019-09-15] MEDS: ALBUTEROL SULFATE 2.5 MG/3 ML NEBU. NEB SCH ×4 (07:58→20:27)
[2019-09-15] MEDS: DUTASTERIDE 0.5 MG CAPSULE PO SCH (08:09)
[2019-09-15] MEDS: PANTOPRAZOLE IV PUSH 40 MG VIAL. IVP SCH (08:09)
--- NOTE | 2019-09-15 08:10 | PDOC ---
Infectious Disease Note Subjective: Subjective sedated on vent Vital Signs: Vital Signs Vital Signs Date Time Temp Pulse Resp B/P (MAP) Pulse Ox O2 Delivery O2 Flow Rate FiO2 09/15/19 07:27 30 100 Ventilator 09/15/19 07:00 74 97/69 (78) 09/15/19 05:00 97.7 97.7 09/15/19 02:16 15.0 Physical Exam: PHYSICAL EXAM GENERAL: orally intubated on vent HEENT: icteric, ETT,no lesion in the mouth. NECK: Supple, RT IJ and central line + looks clean LUNGS: Clear anteriorly HEART: S1, S2 regular. ABDOMEN: Soft, nontender, no organomegaly. EXTREMITIES: No edema, cyanosis. SKIN: Unremarkable. NEUROLOGIC: sedated intubated Medications: Inpatient Meds: Current Medications Medications (Trade) Dose Ordered Sig/Veena Start Time Stop Time Status Last Admin Dose Admin Albuterol Sulfate (Ventolin Neb Soln) 2.5 mg RTQID 09/10/19 08:00 09/14/19 19:32 2.5 MG Amiodarone HCl 450 mg/Dextrose 259 ml @ 17 mls/hr CONT PRN 09/10/19 09:00 09/11/19 02:33 17 MLS/HR Azithromycin (Zithromax) 250 mg DAILY 09/10/19 09:00 09/10/19 13:35 DC 09/10/19 08:38 250 MG Bisacodyl (Dulcolax Supp) 10 mg PRN DAILY PRN 09/10/19 10:00 09/10/19 10:00 10 MG Calcium Chloride 12.5 meq/ Bicarbonate Dialysis Soln w/ out KCl 5,008.9286 ml @ 1,000 mls/hr Q5H1M 09/12/19 13:00 09/12/19 12:18 DC Ceftriaxone Sodium (Rocephin) 1 gm Q24H 09/10/19 12:00 09/10/19 13:35 DC 09/10/19 12:55 1 GM Daptomycin 320 mg/ Sodium Chloride 50 ml @ 100 mls/hr Q24H 09/13/19 08:00 09/14/19 08:12 100 MLS/HR Diltiazem HCl 125 mg/Dextrose 125 ml @ 0 mls/hr CONT PRN 09/10/19 06:30 09/11/19 05:40 10 MLS/HR Dutasteride (Avodart) 0.5 mg DAILY 09/10/19 09:00 09/14/19 11:26 0.5 MG Epinephrine HCl 4 mg/Sodium Chloride 254 ml @ 28.061 mls/ hr CONT PRN 09/11/19 15:45 09/13/19 15:56 DC Fentanyl Citrate (Fentanyl 600 Mcg/30 ml [employer]) 600 mcg STK-MED ONCE 09/11/19 11:28 09/12/19 15:46 DC Furosemide (Lasix) 40 mg 1X ONCE 09/10/19 15:45 09/10/19 15:46 DC 09/10/19 16:38 40 MG Influenza Virus Vaccine Quadrival (Afluria Quad 2019-20 (3yr Up) Syringe) 0.5 ml ONCE ONCE 09/11/19 09:00 09/11/19 09:01 DC Lactobacillus Rhamnosus (Culturelle) 1 cap BID 09/10/19 09:00 09/12/19 09:15 DC 09/11/19 21:16 1 CAP Levofloxacin/ Dextrose 100 ml @ 100 mls/hr Q24H 09/12/19 09:00 09/14/19 08:52 100 MLS/HR Lidocaine HCl (Buffered Lidocaine 1%) 3 ml 1X ONCE 09/11/19 17:15 09/11/19 17:16 DC 09/11/19 17:14 3 ML Lidocaine HCl (Lta Kit) 4 ml STK-MED ONCE 09/10/19 16:00 09/12/19 09:29 DC Lorazepam (Ativan Inj) 0.5 mg 1X ONCE 09/10/19 11:45 09/10/19 11:47 DC 09/10/19 11:48 0.5 MG Methylprednisolone Sodium Succinate (SOLU-Medrol 40MG VIAL) 40 mg Q8HRS 09/10/19 08:00 09/15/19 05:00 40 MG Midazolam HCl 100 ml @ 0 mls/hr CONT PRN 09/11/19 10:15 09/15/19 00:39 7 MLS/HR Morphine Sulfate (Morphine Sulfate) 4 mg PRN Q2HR PRN 09/10/19 21:15 09/11/19 20:31 4 MG Naproxen (Naprosyn) 500 mg PRN BID PRN 09/10/19 06:30 09/12/19 11:01 DC Norepinephrine Bitartrate 250 ml @ 13.81 mls/ hr CONT PRN 09/11/19 10:45 09/12/19 10:47 25 MLS/HR Pantoprazole Sodium (PROTONIX VIAL for IV PUSH) 40 mg DAILYAC 09/12/19 12:00 09/14/19 08:40 40 MG Phytonadione (Vitamin K Ampule) 10 mg 1X ONCE 09/14/19 12:30 09/14/19 12:31 DC 09/14/19 12:26 10 MG Phytonadione 1 mg/ Dextrose 50.1 ml @ 102 mls/hr 1X ONCE 09/12/19 17:00 09/12/19 17:29 DC 09/12/19 17:07 102 MLS/HR Piperacillin Sod/ Tazobactam Sod 3.375 gm/Sodium Chloride 50 ml @ 100 mls/hr 1X ONCE 09/13/19 22:00 09/13/19 22:29 DC 09/13/19 22:27 100 MLS/HR Potassium Chloride 10 meq/ Bicarbonate Dialysis Soln w/ out KCl 5,005 ml @ 1,000 mls/hr Q5H1M 09/12/19 13:00 09/13/19 08:36 DC 09/13/19 06:05 1,000 MLS/HR Potassium Chloride 20 meq/ Bicarbonate Dialysis Soln w/ out KCl 5,010 ml @ 1,000 mls/hr Q5H1M 09/13/19 08:45 09/15/19 03:09 1,000 MLS/HR Propofol 100 ml @ 0 mls/hr CONT PRN 09/11/19 10:15 09/13/19 15:56 DC Sodium Bicarbonate 100 meq/Dextrose 1,100 ml @ 75 mls/hr [id number] 09/11/19 09:00 09/13/19 15:56 DC 09/13/19 06:03 75 MLS/HR Sodium Bicarbonate (Sodium Bicarb Adult 8.4% Syr) 100 meq 1X ONCE 09/11/19 11:15 09/11/19 11:16 DC 09/11/19 11:28 100 MEQ Sodium Chloride 500 ml @ 500 mls/hr 1X ONCE 09/11/19 21:15 09/11/19 22:14 DC 09/11/19 21:21 500 MLS/HR Sodium Chloride (Normal Saline Flush) 10 ml QSHIFT PRN 09/10/19 07:00 Succinylcholine Chloride (Anectine) 200 mg STK-MED ONCE 09/11/19 10:57 09/11/19 10:57 DC Vancomycin HCl (Vanco Per Pharmacy) 1 each PRN DAILY PRN 09/10/19 14:00 09/11/19 07:59 DC 09/10/19 16:55 1 EACH Vancomycin HCl (Vancomycin Trough Level) 1 each 1X ONCE 09/12/19 16:00 09/11/19 08:01 DC Vancomycin HCl 1.5 gm/Sodium Chloride 500 ml @ 250 mls/hr 1X ONCE 09/10/19 14:00 09/10/19 15:59 DC 09/10/19 16:39 250 MLS/HR Vancomycin HCl 1 gm/Sodium Chloride 250 ml @ 250 mls/hr Q24H 09/11/19 16:30 09/11/19 07:59 DC Vasopressin 40 unit/Dextrose 102 ml @ 6 mls/hr CONT PRN 09/11/19 11:30 09/15/19 00:39 6 MLS/HR Labs: Lab Laboratory Tests Test 09/14/19 09:40 09/14/19 11:15 09/14/19 17:15 09/14/19 23:00 O2 Saturation 95 % (92-99) Arterial Blood pH 7.44 (7.35-7.45) Arterial Blood pCO2 at Patient Temp 32 mmHg (35-46) Arterial Blood pO2 at Patient Temp 78 mmHg (65-108) Arterial Blood HCO3 22 mmol/L (21-28) Arterial Blood Base Excess -2 mmol/L (-3-3) FiO2 40 White Blood Count 35.7 x10^3/uL (4.0-11.0) Red Blood Count 4.80 x10^6/uL (4.30-5.70) Hemoglobin 11.2 g/dL (13.0-17.5) Hematocrit 35.0 % (39.0-53.0) Mean Corpuscular Volume 73 fL (79-100) Mean Corpuscular Hemoglobin 23 pg (25-35) Mean Corpuscular Hemoglobin Concent 32 g/dL (31-37) Red Cell Distribution Width 18.7 % (11.5-14.5) Platelet Count 60 x10^3/uL (140-400) Prothrombin Time 31.6 SEC (11.7-14.0) Prothromb Time International Ratio 3.1 (0.8-1.1) Activated Partial Thromboplast Time 35 SEC (24-38) Fibrinogen 189 mg/dL (200-440) Sodium Level 140 mmol/L (136-145) 138 mmol/L (136-145) 138 mmol/L (136-145) Potassium Level 4.4 mmol/L (3.5-5.1) 4.4 mmol/L (3.5-5.1) 4.2 mmol/L (3.5-5.1) Chloride Level 104 mmol/L (98-107) 103 mmol/L (98-107) 106 mmol/L (98-107) Carbon Dioxide Level 25 mmol/L (21-32) 26 mmol/L (21-32) 24 mmol/L (21-32) Anion Gap 11 (6-14) 9 (6-14) 8 (6-14) Blood Urea Nitrogen 33 mg/dL (8-26) 32 mg/dL (8-26) 32 mg/dL (8-26) Creatinine 1.8 mg/dL (0.7-1.3) 1.7 mg/dL (0.7-1.3) 1.6 mg/dL (0.7-1.3) Estimated GFR (Cockcroft-Gault) 36.7 39.2 42.0 BUN/Creatinine Ratio 18 (6-20) 19 (6-20) 20 (6-20) Glucose Level 203 mg/dL (70-99) 203 mg/dL (70-99) 245 mg/dL (70-99) Calcium Level 7.3 mg/dL (8.5-10.1) 7.5 mg/dL (8.5-10.1) 6.9 mg/dL (8.5-10.1) Phosphorus Level 3.3 mg/dL (2.6-4.7) 2.9 mg/dL (2.6-4.7) 3.3 mg/dL (2.6-4.7) Magnesium Level 2.8 mg/dL (1.8-2.4) 2.8 mg/dL (1.8-2.4) 2.7 mg/dL (1.8-2.4) Total Bilirubin 10.2 mg/dL (0.2-1.0) 11.4 mg/dL (0.2-1.0) 10.2 mg/dL (0.2-1.0) Aspartate Amino Transf (AST/SGOT) 1296 U/L (15-37) 1146 U/L (15-37) 863 U/L (15-37) Alanine Aminotransferase (ALT/SGPT) 2069 U/L (16-63) 2013 U/L (16-63) 1623 U/L (16-63) Alkaline Phosphatase 131 U/L (46-116) 138 U/L (46-116) 116 U/L (46-116) Total Protein 5.3 g/dL (6.4-8.2) 5.7 g/dL (6.4-8.2) 4.7 g/dL (6.4-8.2) Albumin 2.1 g/dL (3.4-5.0) 2.2 g/dL (3.4-5.0) 1.9 g/dL (3.4-5.0) Albumin/Globulin Ratio 0.7 (1.0-1.7) 0.6 (1.0-1.7) 0.7 (1.0-1.7) Test 09/15/19 05:48 White Blood Count 28.5 x10^3/uL (4.0-11.0) Red Blood Count 4.30 x10^6/uL (4.30-5.70) Hemoglobin 10.1 g/dL (13.0-17.5) Hematocrit 31.5 % (39.0-53.0) Mean Corpuscular Volume 73 fL (79-100) Mean Corpuscular Hemoglobin 24 pg (25-35) Mean Corpuscular Hemoglobin Concent 32 g/dL (31-37) Red Cell Distribution Width 18.6 % (11.5-14.5) Platelet Count 38 x10^3/uL (140-400) Sodium Level 141 mmol/L (136-145) Potassium Level 4.3 mmol/L (3.5-5.1) Chloride Level 106 mmol/L (98-107) Carbon Dioxide Level 24 mmol/L (21-32) Anion Gap 11 (6-14) Blood Urea Nitrogen 32 mg/dL (8-26) Creatinine 1.5 mg/dL (0.7-1.3) Estimated GFR (Cockcroft-Gault) 45.3 BUN/Creatinine Ratio 21 (6-20) Glucose Level 225 mg/dL (70-99) Calcium Level 7.2 mg/dL (8.5-10.1) Phosphorus Level 3.1 mg/dL (2.6-4.7) Magnesium Level 2.7 mg/dL (1.8-2.4) Total Bilirubin 10.1 mg/dL (0.2-1.0) Aspartate Amino Transf (AST/SGOT) 723 U/L (15-37) Alanine Aminotransferase (ALT/SGPT) 1489 U/L (16-63) Alkaline Phosphatase 115 U/L (46-116) Total Protein 4.9 g/dL (6.4-8.2) Albumin 1.8 g/dL (3.4-5.0) Albumin/Globulin Ratio 0.6 (1.0-1.7) Micro reviewed Objective: Assessment: Pt with multiorgan failure 1. Respiratory failure. Pulmonary infiltrate. likely respiratory infection with acute respiratory distress syndrome. 2. Leukocytosis.reactive 3 Acute kidney injury, multifactorial from hypotension on CRRT 4. 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 DIC 6 History of rheumatoid arthritis, had been on naproxen. 7 .A fib with RVR and Circulatory failure. Plan: Plan of Care change zosyn to merrem cont levaquin and dapto cont supportive care f/u c/s and labs add cmv and ebv serologies less like coccidiodes but with recent travel to [facility] will obtain serologies Condition critical prognosis very poor D/W Nursing staff ENMANUEL GAN MD Sep 15, 2019 08:10
--- NOTE | 2019-09-15 08:11 | PN ---
DATE: 09/15/2019 SUBJECTIVE: The patient is continued to be sedated, intubated and mechanically ventilated, continued to be on continuous renal replacement therapy and is only on vasopressin, the Levophed and epinephrine were discontinued. He continued to be on triple antibiotic and now on nutritional support through the Dobhoff catheter. PHYSICAL EXAMINATION: GENERAL: When I examined him this morning, he looked well and was clearly in no apparent respiratory distress, pale, no jaundice, cyanosis or thyromegaly. No jugular venous distension. No lower limb edema. VITAL SIGNS: His heart rate was 76, blood pressure was 91/55, temperature was 97.7, respiratory rate was 30 and oxygen saturation was 100% on FiO2 of 40%. HEAD, EYES, EARS, NOSE AND THROAT: Showed normocephalic, atraumatic. He has orotracheal and orogastric tube. NECK: Supple. HEART: Showed normal first and second heart sounds with no gallop or murmur. CHEST: Clear to auscultation. No crepitation or rhonchi. ABDOMEN: Distended, soft and nontender. No guarding or rigidity. No organomegaly. All hernial orifices intact. Bowel sounds normal. NEUROLOGIC: He is heavily sedated. His intake over the last 24 hours was 1400, no output was recorded. The patient continued to be extremely oliguric, completely anuric. LABORATORY DATA: His lab work this morning showed a white cell count is trending down further, today is 28,500, hemoglobin 10, hematocrit 32, MCV 73 and platelet count of 38,000. His prothrombin time was 31.6, INR 3.1, aPTT was 35 and fibrinogen is down to 189. His chemistry showed a serum sodium 141, potassium 4.3, chloride 106, bicarbonate 24, anion gap of 11, BUN 32, creatinine 1.5, estimated GFR was 45 mL per minute. His glucose was 125, calcium 7.2 and phosphorus 3.1. His total bilirubin, AST and ALT are elevated, but trending down. His alkaline phosphatase was normal. Total protein was 4.9. Albumin was 1.8. ASSESSMENT: 1. Acute kidney injury, likely due to acute tubular necrosis secondary to sepsis. He continues to be completely anuric, currently on continuous renal replacement therapy, tolerating it well. 2. Sepsis for which he is on antibiotic in the form of levofloxacin, daptomycin, piperacillin and tazobactam. 3. Hypertension. He continues to be on vasopressin. His Levophed and epinephrine were discontinued. 4. Impaired liver enzyme that was steadily improving, although the total serum bilirubin continued to be elevated. 5. Has had pneumonia. 6. Rheumatoid arthritis. 7. Possible interstitial lung disease and pulmonary fibrosis. 8. Atrial fibrillation with rapid ventricular response, for which he was cardioverted. 9. DIC with worsening thrombocytopenia. His active platelet count came down from normal 252, down to 38. His hemoglobin and hematocrit remained stable and fibrinogen was actually down. PLAN: 1. To continue with the mechanical ventilation. 2. Continue with nutritional support through the Dobhoff catheter. 3. Continue with pressure support in form of vasopressin. 4. Continue with IV antibiotic in the form of daptomycin, Levaquin and Zosyn. 5. Continue with continuous renal replacement therapy. INGRIS FINCH MD DR: JOSIANE/jose JOB#: [id number] / [id number]
[2019-09-15 08:15] LABS: BASE EXCESS ABG -1 mmol/L (-3-3); HCO3 ABG 21 mmol/L (21-28); PCO2 ABG 26 mmHg (35-46); PO2 ABG 82 mmHg (65-108); SAT O2 ABG 95 % (92-99)
[2019-09-15 08:16] LABS: FIO2 ABG 40
[2019-09-15] MEDS ORDERED: MEROPENEM 500 MG in IV NORMAL SALINE 50ML 50 ML IV SCH (09:00)
[2019-09-15] MEDS: DAPTOmycin (GENERIC) IVPB 320 MG in IV NORMAL SALINE 50ML 50 ML IV SCH (09:22)
[2019-09-15 12:01] LABS: HEMATOCRIT 31.7 % (39.0-53.0); HEMOGLOBIN 10.2 g/dL (13.0-17.5); RED BLOOD COUNT 4.34 x10^6/uL (4.30-5.70); RED CELL DISTRIBUTION WIDTH 18.3 % (11.5-14.5); WHITE BLOOD COUNT 26.6 x10^3/uL (4.0-11.0)
[2019-09-15 12:13] LABS: PROTHROMBIN TIME PATIENT 27.7 SEC (11.7-14.0)
[2019-09-15 12:43] LABS: ALBUMIN 1.9 g/dL (3.4-5.0); ALBUMIN/GLOBULIN RATIO 0.7 (1.0-1.7); CALCIUM 7.2 mg/dL (8.5-10.1); CREATININE 1.6 mg/dL (0.7-1.3); MAGNESIUM 2.7 mg/dL (1.8-2.4); PHOSPHORUS 2.9 mg/dL (2.6-4.7); POTASSIUM 4.3 mmol/L (3.5-5.1); TOTAL BILIRUBIN 10.4 mg/dL (0.2-1.0); TOTAL PROTEIN 4.8 g/dL (6.4-8.2)
--- NOTE | 2019-09-15 13:00 | PDOC ---
SUBJECTIVE ROS Intubated, On Vasopressin OBJECTIVE Vital Signs Vital Signs Date Time Temp Pulse Resp B/P (MAP) Pulse Ox O2 Delivery O2 Flow Rate FiO2 09/15/19 12:00 100/49 (66) 09/15/19 12:00 Mechanical Ventilator 09/15/19 12:00 97.3 80 30 100 97.3 09/15/19 07:57 15.0 I & 0 Intake and Output 09/15/19 07:00 Intake Total 3110.88 ml Output Total 2 ml Balance 3108.88 ml Intake Oral 0 ml IV Total 509.88 ml Tube Feeding 1876 ml Other 725 ml Output Urine Total 0 ml Stool Total 2 ml Gastric Drainage Total 0 ml # Bowel Movements 1 PHYSICAL EXAM Physical Exam GENERAL: orally intubated on vent HEENT: Both pupils are round and reacting. Orally intubated NECK: Supple, LUNGS: Clear. HEART: S1, S2 regular. ABDOMEN: Soft, EXTREMITIES: No edema, cyanosis. SKIN: Unremarkable. NEUROLOGIC: intubated gould + DIAGNOSIS/ASSESSMENT Assessment & Plan PEDRO- ATN due to Sepsis , Anuric On CRRT since 09/11 , tolerating well,continue as ordered ,dw [place] Pumper UF as tolerated , Dw RN at bedside Sepsis - per ID Hyperkalemia- resolved Metabolic acidosis- Normal Bicarb, On CRRT Hypotension- On Vasopressin Elevated LFT's Ac Hypoxic Resp failure- Intubated /MV Abnormal CT chest revealing bilateral pulmonary infiltrates. Pneumonia Possible interstitial lung disease/pulmonary fibrosis. History of rheumatoid arthritis. Atrial fibrillation with rapid ventricular response. Cardioverted Discussed with family at bedside COMMENT/RELEVANT DATA Meds Current Medications Medications (Trade) Dose Ordered Sig/Veena Start Time Stop Time Status Last Admin Dose Admin Albuterol Sulfate (Ventolin Neb Soln) 2.5 mg RTQID 09/10/19 08:00 09/15/19 11:12 2.5 MG Amiodarone HCl 450 mg/Dextrose 259 ml @ 17 mls/hr CONT PRN 09/10/19 09:00 09/11/19 02:33 17 MLS/HR Azithromycin (Zithromax) 250 mg DAILY 09/10/19 09:00 09/10/19 13:35 DC 09/10/19 08:38 250 MG Bisacodyl (Dulcolax Supp) 10 mg PRN DAILY PRN 09/10/19 10:00 09/10/19 10:00 10 MG Calcium Chloride 12.5 meq/ Bicarbonate Dialysis Soln w/ out KCl 5,008.9286 ml @ 1,000 mls/hr Q5H1M 09/12/19 13:00 09/12/19 12:18 DC Ceftriaxone Sodium (Rocephin) 1 gm Q24H 09/10/19 12:00 09/10/19 13:35 DC 09/10/19 12:55 1 GM Daptomycin 320 mg/ Sodium Chloride 50 ml @ 100 mls/hr Q24H 09/13/19 08:00 09/15/19 09:22 100 MLS/HR Diltiazem HCl 125 mg/Dextrose 125 ml @ 0 mls/hr CONT PRN 09/10/19 06:30 09/11/19 05:40 10 MLS/HR Dutasteride (Avodart) 0.5 mg DAILY 09/10/19 09:00 09/15/19 08:09 0.5 MG Epinephrine HCl 4 mg/Sodium Chloride 254 ml @ 28.061 mls/ hr CONT PRN 09/11/19 15:45 09/13/19 15:56 DC Fentanyl Citrate (Fentanyl 600 Mcg/30 ml [employer]) 600 mcg STK-MED ONCE 09/11/19 11:28 09/12/19 15:46 DC Furosemide (Lasix) 40 mg 1X ONCE 09/10/19 15:45 09/10/19 15:46 DC 09/10/19 16:38 40 MG Influenza Virus Vaccine Quadrival (Afluria Quad 2019-20 (3yr Up) Syringe) 0.5 ml ONCE ONCE 09/11/19 09:00 09/11/19 09:01 DC Lactobacillus Rhamnosus (Culturelle) 1 cap BID 09/10/19 09:00 09/12/19 09:15 DC 09/11/19 21:16 1 CAP Levofloxacin/ Dextrose 100 ml @ 100 mls/hr Q24H 09/12/19 09:00 09/15/19 08:09 100 MLS/HR Lidocaine HCl (Buffered Lidocaine 1%) 3 ml 1X ONCE 09/11/19 17:15 09/11/19 17:16 DC 09/11/19 17:14 3 ML Lidocaine HCl (Lta Kit) 4 ml STK-MED ONCE 09/10/19 16:00 09/12/19 09:29 DC Lorazepam (Ativan Inj) 0.5 mg 1X ONCE 09/10/19 11:45 09/10/19 11:47 DC 09/10/19 11:48 0.5 MG Meropenem 500 mg/ Sodium Chloride 50 ml @ 100 mls/hr Q12H 09/15/19 21:00 Methylprednisolone Sodium Succinate (SOLU-Medrol 40MG VIAL) 40 mg Q8HRS 09/10/19 08:00 09/15/19 05:00 40 MG Midazolam HCl 100 ml @ 0 mls/hr CONT PRN 09/11/19 10:15 09/15/19 00:39 7 MLS/HR Morphine Sulfate (Morphine Sulfate) 4 mg PRN Q2HR PRN 09/10/19 21:15 09/11/19 20:31 4 MG Naproxen (Naprosyn) 500 mg PRN BID PRN 09/10/19 06:30 09/12/19 11:01 DC Norepinephrine Bitartrate 250 ml @ 13.81 mls/ hr CONT PRN 09/11/19 10:45 09/12/19 10:47 25 MLS/HR Pantoprazole Sodium (PROTONIX VIAL for IV PUSH) 40 mg DAILYAC 09/12/19 12:00 09/15/19 08:09 40 MG Phytonadione (Vitamin K Ampule) 10 mg 1X ONCE 09/14/19 12:30 09/14/19 12:31 DC 09/14/19 12:26 10 MG Phytonadione 1 mg/ Dextrose 50.1 ml @ 102 mls/hr 1X ONCE 09/12/19 17:00 09/12/19 17:29 DC 09/12/19 17:07 102 MLS/HR Piperacillin Sod/ Tazobactam Sod 3.375 gm/Sodium Chloride 50 ml @ 100 mls/hr 1X ONCE 09/13/19 22:00 09/13/19 22:29 DC 09/13/19 22:27 100 MLS/HR Potassium Chloride 10 meq/ Bicarbonate Dialysis Soln w/ out KCl 5,005 ml @ 1,000 mls/hr Q5H1M 09/12/19 13:00 09/13/19 08:36 DC 09/13/19 06:05 1,000 MLS/HR Potassium Chloride 20 meq/ Bicarbonate Dialysis Soln w/ out KCl 5,010 ml @ 1,000 mls/hr Q5H1M 09/13/19 08:45 09/15/19 08:42 1,000 MLS/HR Propofol 100 ml @ 0 mls/hr CONT PRN 09/11/19 10:15 09/13/19 15:56 DC Sodium Bicarbonate 100 meq/Dextrose 1,100 ml @ 75 mls/hr [id number] 09/11/19 09:00 09/13/19 15:56 DC 09/13/19 06:03 75 MLS/HR Sodium Bicarbonate (Sodium Bicarb Adult 8.4% Syr) 100 meq 1X ONCE 09/11/19 11:15 09/11/19 11:16 DC 09/11/19 11:28 100 MEQ Sodium Chloride 500 ml @ 500 mls/hr 1X ONCE 09/11/19 21:15 09/11/19 22:14 DC 09/11/19 21:21 500 MLS/HR Sodium Chloride (Normal Saline Flush) 10 ml QSHIFT PRN 09/10/19 07:00 Succinylcholine Chloride (Anectine) 200 mg STK-MED ONCE 09/11/19 10:57 09/11/19 10:57 DC Vancomycin HCl (Vanco Per Pharmacy) 1 each PRN DAILY PRN 09/10/19 14:00 09/11/19 07:59 DC 09/10/19 16:55 1 EACH Vancomycin HCl (Vancomycin Trough Level) 1 each 1X ONCE 09/12/19 16:00 09/11/19 08:01 DC Vancomycin HCl 1.5 gm/Sodium Chloride 500 ml @ 250 mls/hr 1X ONCE 09/10/19 14:00 09/10/19 15:59 DC 09/10/19 16:39 250 MLS/HR Vancomycin HCl 1 gm/Sodium Chloride 250 ml @ 250 mls/hr Q24H 09/11/19 16:30 09/11/19 07:59 DC Vasopressin 40 unit/Dextrose 102 ml @ 6 mls/hr CONT PRN 09/11/19 11:30 09/15/19 00:39 6 MLS/HR Lab Laboratory Tests Test 09/14/19 17:15 09/14/19 23:00 09/15/19 05:48 09/15/19 08:10 Sodium Level 138 mmol/L (136-145) 138 mmol/L (136-145) 141 mmol/L (136-145) Potassium Level 4.4 mmol/L (3.5-5.1) 4.2 mmol/L (3.5-5.1) 4.3 mmol/L (3.5-5.1) Chloride Level 103 mmol/L (98-107) 106 mmol/L (98-107) 106 mmol/L (98-107) Carbon Dioxide Level 26 mmol/L (21-32) 24 mmol/L (21-32) 24 mmol/L (21-32) Anion Gap 9 (6-14) 8 (6-14) 11 (6-14) Blood Urea Nitrogen 32 mg/dL (8-26) 32 mg/dL (8-26) 32 mg/dL (8-26) Creatinine 1.7 mg/dL (0.7-1.3) 1.6 mg/dL (0.7-1.3) 1.5 mg/dL (0.7-1.3) Estimated GFR (Cockcroft-Gault) 39.2 42.0 45.3 BUN/Creatinine Ratio 19 (6-20) 20 (6-20) 21 (6-20) Glucose Level 203 mg/dL (70-99) 245 mg/dL (70-99) 225 mg/dL (70-99) Calcium Level 7.5 mg/dL (8.5-10.1) 6.9 mg/dL (8.5-10.1) 7.2 mg/dL (8.5-10.1) Phosphorus Level 2.9 mg/dL (2.6-4.7) 3.3 mg/dL (2.6-4.7) 3.1 mg/dL (2.6-4.7) Magnesium Level 2.8 mg/dL (1.8-2.4) 2.7 mg/dL (1.8-2.4) 2.7 mg/dL (1.8-2.4) Total Bilirubin 11.4 mg/dL (0.2-1.0) 10.2 mg/dL (0.2-1.0) 10.1 mg/dL (0.2-1.0) Aspartate Amino Transf (AST/SGOT) 1146 U/L (15-37) 863 U/L (15-37) 723 U/L (15-37) Alanine Aminotransferase (ALT/SGPT) 2013 U/L (16-63) 1623 U/L (16-63) 1489 U/L (16-63) Alkaline Phosphatase 138 U/L (46-116) 116 U/L (46-116) 115 U/L (46-116) Total Protein 5.7 g/dL (6.4-8.2) 4.7 g/dL (6.4-8.2) 4.9 g/dL (6.4-8.2) Albumin 2.2 g/dL (3.4-5.0) 1.9 g/dL (3.4-5.0) 1.8 g/dL (3.4-5.0) Albumin/Globulin Ratio 0.6 (1.0-1.7) 0.7 (1.0-1.7) 0.6 (1.0-1.7) White Blood Count 28.5 x10^3/uL (4.0-11.0) Red Blood Count 4.30 x10^6/uL (4.30-5.70) Hemoglobin 10.1 g/dL (13.0-17.5) Hematocrit 31.5 % (39.0-53.0) Mean Corpuscular Volume 73 fL (79-100) Mean Corpuscular Hemoglobin 24 pg (25-35) Mean Corpuscular Hemoglobin Concent 32 g/dL (31-37) Red Cell Distribution Width 18.6 % (11.5-14.5) Platelet Count 38 x10^3/uL (140-400) O2 Saturation 95 % (92-99) Arterial Blood pH 7.52 (7.35-7.45) Arterial Blood pCO2 at Patient Temp 26 mmHg (35-46) Arterial Blood pO2 at Patient Temp 82 mmHg (65-108) Arterial Blood HCO3 21 mmol/L (21-28) Arterial Blood Base Excess -1 mmol/L (-3-3) FiO2 40 Test 09/15/19 11:45 White Blood Count 26.6 x10^3/uL (4.0-11.0) Red Blood Count 4.34 x10^6/uL (4.30-5.70) Hemoglobin 10.2 g/dL (13.0-17.5) Hematocrit 31.7 % (39.0-53.0) Mean Corpuscular Volume 73 fL (79-100) Mean Corpuscular Hemoglobin 24 pg (25-35) Mean Corpuscular Hemoglobin Concent 32 g/dL (31-37) Red Cell Distribution Width 18.3 % (11.5-14.5) Platelet Count 35 x10^3/uL (140-400) Prothrombin Time 27.7 SEC (11.7-14.0) Prothromb Time International Ratio 2.6 (0.8-1.1) Activated Partial Thromboplast Time 34 SEC (24-38) Fibrinogen 124 mg/dL (200-440) Sodium Level 137 mmol/L (136-145) Potassium Level 4.3 mmol/L (3.5-5.1) Chloride Level 106 mmol/L (98-107) Carbon Dioxide Level 26 mmol/L (21-32) Anion Gap 5 (6-14) Blood Urea Nitrogen 36 mg/dL (8-26) Creatinine 1.6 mg/dL (0.7-1.3) Estimated GFR (Cockcroft-Gault) 42.0 BUN/Creatinine Ratio 23 (6-20) Glucose Level 278 mg/dL (70-99) Lactic Acid Level 2.6 mmol/L (0.4-2.0) Calcium Level 7.2 mg/dL (8.5-10.1) Phosphorus Level 2.9 mg/dL (2.6-4.7) Magnesium Level 2.7 mg/dL (1.8-2.4) Total Bilirubin 10.4 mg/dL (0.2-1.0) Aspartate Amino Transf (AST/SGOT) 597 U/L (15-37) Alanine Aminotransferase (ALT/SGPT) 1394 U/L (16-63) Alkaline Phosphatase 113 U/L (46-116) Total Protein 4.8 g/dL (6.4-8.2) Albumin 1.9 g/dL (3.4-5.0) Albumin/Globulin Ratio 0.7 (1.0-1.7) Results All relevant outside records, renal labs, imaging studies, telemetry/EKG's were reviewed. JAMEL LOPEZ MD Sep 15, 2019 13:00
[2019-09-15 18:18] LABS: ALBUMIN 1.8 g/dL (3.4-5.0); ALBUMIN/GLOBULIN RATIO 0.6 (1.0-1.7); CREATININE 1.5 mg/dL (0.7-1.3); GFR 45.3; MAGNESIUM 2.6 mg/dL (1.8-2.4); PHOSPHORUS 2.8 mg/dL (2.6-4.7); POTASSIUM 4.6 mmol/L (3.5-5.1); TOTAL PROTEIN 4.7 g/dL (6.4-8.2)
[2019-09-15] MEDS: MEROPENEM 500 MG in IV NORMAL SALINE 50ML 50 ML IV SCH (21:27)
[2019-09-16] VITALS (25 sets, daily range): BP systolic 82–151; BP diastolic 40–80
[2019-09-16 00:49] LABS: MAGNESIUM 2.5 mg/dL (1.8-2.4); PHOSPHORUS 2.9 mg/dL (2.6-4.7); POTASSIUM 4.6 mmol/L (3.5-5.1)
[2019-09-16 04:45] LABS: BASO # 0.2 x10^3/uL (0.0-0.2); BASO % 1 % (0-3); EOS % 0 % (0-3); HEMATOCRIT 29.6 % (39.0-53.0); HEMOGLOBIN 9.5 g/dL (13.0-17.5); LYMPH # 0.4 x10^3/uL (1.0-4.8); LYMPH % 2 % (24-48); MEAN CORPUSCULAR HEMOGLOBIN 24 pg (25-35); MEAN CORPUSCULAR HGB CONC 32 g/dL (31-37); MEAN CORPUSCULAR VOLUME 73 fL (79-100); MONO # 0.3 x10^3/uL (0.0-1.1); MONO % 1 % (0-9); NEUT # 21.2 x10^3/uL (1.8-7.7); NEUT % 96 % (31-73); PLATELET COUNT 29 x10^3/uL (140-400); RED BLOOD COUNT 4.04 x10^6/uL (4.30-5.70); RED CELL DISTRIBUTION WIDTH 18.1 % (11.5-14.5); WHITE BLOOD COUNT 22.1 x10^3/uL (4.0-11.0)
[2019-09-16 04:50] LABS: PROTHROMBIN TIME PATIENT 26.1 SEC (11.7-14.0)
[2019-09-16 05:19] LABS: MAGNESIUM 2.5 mg/dL (1.8-2.4); PHOSPHORUS 2.8 mg/dL (2.6-4.7)
[2019-09-16 05:37] LABS: ALBUMIN 1.7 g/dL (3.4-5.0); ALBUMIN/GLOBULIN RATIO 0.6 (1.0-1.7); CALCIUM 6.8 mg/dL (8.5-10.1); CREATININE 1.7 mg/dL (0.7-1.3); GFR 39.2; POTASSIUM 4.6 mmol/L (3.5-5.1); TOTAL BILIRUBIN 9.5 mg/dL (0.2-1.0); TOTAL PROTEIN 4.7 g/dL (6.4-8.2)
--- NOTE | 2019-09-16 05:48 | PDOC ---
PULMONARY PROGRESS NOTES Subjective INTUBATED 09/11 BY ANESTHESIA on AC MODE UNDERGOING CRRT on fentanyl, versed, vaso Vitals Vital Signs Date Time Temp Pulse Resp B/P (MAP) Pulse Ox O2 Delivery O2 Flow Rate FiO2 09/16/19 05:00 84 30 95/50 (65) 100 Ventilator 09/16/19 04:00 98.1 98.1 09/15/19 07:57 15.0 Comments ros as mentioned as above discussed w rn other sys otherwise neg sedated on vent HEENT: Other (nc at perrl nose clear orally intubated neck no lad no thyromegaly) Lungs: Crackles Cardiovascular: S1, S2 Abdomen: Soft, Non-tender, Other (no mass) Extremities: Other (EDMA ) Skin: Warm Labs Laboratory Tests Test 09/14/19 09:40 09/14/19 11:15 09/14/19 17:15 09/14/19 23:00 O2 Saturation 95 % (92-99) Arterial Blood pH 7.44 (7.35-7.45) Arterial Blood pCO2 at Patient Temp 32 mmHg (35-46) Arterial Blood pO2 at Patient Temp 78 mmHg (65-108) Arterial Blood HCO3 22 mmol/L (21-28) Arterial Blood Base Excess -2 mmol/L (-3-3) FiO2 40 White Blood Count 35.7 x10^3/uL (4.0-11.0) Red Blood Count 4.80 x10^6/uL (4.30-5.70) Hemoglobin 11.2 g/dL (13.0-17.5) Hematocrit 35.0 % (39.0-53.0) Mean Corpuscular Volume 73 fL (79-100) Mean Corpuscular Hemoglobin 23 pg (25-35) Mean Corpuscular Hemoglobin Concent 32 g/dL (31-37) Red Cell Distribution Width 18.7 % (11.5-14.5) Platelet Count 60 x10^3/uL (140-400) Prothrombin Time 31.6 SEC (11.7-14.0) Prothromb Time International Ratio 3.1 (0.8-1.1) Activated Partial Thromboplast Time 35 SEC (24-38) Fibrinogen 189 mg/dL (200-440) Sodium Level 140 mmol/L (136-145) 138 mmol/L (136-145) 138 mmol/L (136-145) Potassium Level 4.4 mmol/L (3.5-5.1) 4.4 mmol/L (3.5-5.1) 4.2 mmol/L (3.5-5.1) Chloride Level 104 mmol/L (98-107) 103 mmol/L (98-107) 106 mmol/L (98-107) Carbon Dioxide Level 25 mmol/L (21-32) 26 mmol/L (21-32) 24 mmol/L (21-32) Anion Gap 11 (6-14) 9 (6-14) 8 (6-14) Blood Urea Nitrogen 33 mg/dL (8-26) 32 mg/dL (8-26) 32 mg/dL (8-26) Creatinine 1.8 mg/dL (0.7-1.3) 1.7 mg/dL (0.7-1.3) 1.6 mg/dL (0.7-1.3) Estimated GFR (Cockcroft-Gault) 36.7 39.2 42.0 BUN/Creatinine Ratio 18 (6-20) 19 (6-20) 20 (6-20) Glucose Level 203 mg/dL (70-99) 203 mg/dL (70-99) 245 mg/dL (70-99) Calcium Level 7.3 mg/dL (8.5-10.1) 7.5 mg/dL (8.5-10.1) 6.9 mg/dL (8.5-10.1) Phosphorus Level 3.3 mg/dL (2.6-4.7) 2.9 mg/dL (2.6-4.7) 3.3 mg/dL (2.6-4.7) Magnesium Level 2.8 mg/dL (1.8-2.4) 2.8 mg/dL (1.8-2.4) 2.7 mg/dL (1.8-2.4) Total Bilirubin 10.2 mg/dL (0.2-1.0) 11.4 mg/dL (0.2-1.0) 10.2 mg/dL (0.2-1.0) Aspartate Amino Transf (AST/SGOT) 1296 U/L (15-37) 1146 U/L (15-37) 863 U/L (15-37) Alanine Aminotransferase (ALT/SGPT) 2069 U/L (16-63) 2013 U/L (16-63) 1623 U/L (16-63) Alkaline Phosphatase 131 U/L (46-116) 138 U/L (46-116) 116 U/L (46-116) Total Protein 5.3 g/dL (6.4-8.2) 5.7 g/dL (6.4-8.2) 4.7 g/dL (6.4-8.2) Albumin 2.1 g/dL (3.4-5.0) 2.2 g/dL (3.4-5.0) 1.9 g/dL (3.4-5.0) Albumin/Globulin Ratio 0.7 (1.0-1.7) 0.6 (1.0-1.7) 0.7 (1.0-1.7) Test 09/15/19 05:48 09/15/19 08:10 09/15/19 11:45 09/15/19 15:25 White Blood Count 28.5 x10^3/uL (4.0-11.0) 26.6 x10^3/uL (4.0-11.0) Red Blood Count 4.30 x10^6/uL (4.30-5.70) 4.34 x10^6/uL (4.30-5.70) Hemoglobin 10.1 g/dL (13.0-17.5) 10.2 g/dL (13.0-17.5) Hematocrit 31.5 % (39.0-53.0) 31.7 % (39.0-53.0) Mean Corpuscular Volume 73 fL (79-100) 73 fL (79-100) Mean Corpuscular Hemoglobin 24 pg (25-35) 24 pg (25-35) Mean Corpuscular Hemoglobin Concent 32 g/dL (31-37) 32 g/dL (31-37) Red Cell Distribution Width 18.6 % (11.5-14.5) 18.3 % (11.5-14.5) Platelet Count 38 x10^3/uL (140-400) 35 x10^3/uL (140-400) Sodium Level 141 mmol/L (136-145) 137 mmol/L (136-145) Potassium Level 4.3 mmol/L (3.5-5.1) 4.3 mmol/L (3.5-5.1) Chloride Level 106 mmol/L (98-107) 106 mmol/L (98-107) Carbon Dioxide Level 24 mmol/L (21-32) 26 mmol/L (21-32) Anion Gap 11 (6-14) 5 (6-14) Blood Urea Nitrogen 32 mg/dL (8-26) 36 mg/dL (8-26) Creatinine 1.5 mg/dL (0.7-1.3) 1.6 mg/dL (0.7-1.3) Estimated GFR (Cockcroft-Gault) 45.3 42.0 BUN/Creatinine Ratio 21 (6-20) 23 (6-20) Glucose Level 225 mg/dL (70-99) 278 mg/dL (70-99) Calcium Level 7.2 mg/dL (8.5-10.1) 7.2 mg/dL (8.5-10.1) Phosphorus Level 3.1 mg/dL (2.6-4.7) 2.9 mg/dL (2.6-4.7) Magnesium Level 2.7 mg/dL (1.8-2.4) 2.7 mg/dL (1.8-2.4) Total Bilirubin 10.1 mg/dL (0.2-1.0) 10.4 mg/dL (0.2-1.0) Aspartate Amino Transf (AST/SGOT) 723 U/L (15-37) 597 U/L (15-37) Alanine Aminotransferase (ALT/SGPT) 1489 U/L (16-63) 1394 U/L (16-63) Alkaline Phosphatase 115 U/L (46-116) 113 U/L (46-116) Total Protein 4.9 g/dL (6.4-8.2) 4.8 g/dL (6.4-8.2) Albumin 1.8 g/dL (3.4-5.0) 1.9 g/dL (3.4-5.0) Albumin/Globulin Ratio 0.6 (1.0-1.7) 0.7 (1.0-1.7) O2 Saturation 95 % (92-99) Arterial Blood pH 7.52 (7.35-7.45) Arterial Blood pCO2 at Patient Temp 26 mmHg (35-46) Arterial Blood pO2 at Patient Temp 82 mmHg (65-108) Arterial Blood HCO3 21 mmol/L (21-28) Arterial Blood Base Excess -1 mmol/L (-3-3) FiO2 40 Prothrombin Time 27.7 SEC (11.7-14.0) Prothromb Time International Ratio 2.6 (0.8-1.1) Activated Partial Thromboplast Time 34 SEC (24-38) Fibrinogen 124 mg/dL (200-440) Lactic Acid Level 2.6 mmol/L (0.4-2.0) 2.5 mmol/L (0.4-2.0) Test 09/15/19 17:40 09/15/19 23:59 09/16/19 04:30 Sodium Level 140 mmol/L (136-145) 139 mmol/L (136-145) 142 mmol/L (136-145) Potassium Level 4.6 mmol/L (3.5-5.1) 4.6 mmol/L (3.5-5.1) 4.6 mmol/L (3.5-5.1) Chloride Level 107 mmol/L (98-107) 108 mmol/L (98-107) 108 mmol/L (98-107) Carbon Dioxide Level 24 mmol/L (21-32) 25 mmol/L (21-32) 24 mmol/L (21-32) Anion Gap 9 (6-14) 6 (6-14) 10 (6-14) Blood Urea Nitrogen 35 mg/dL (8-26) 39 mg/dL (8-26) Creatinine 1.5 mg/dL (0.7-1.3) 1.7 mg/dL (0.7-1.3) Estimated GFR (Cockcroft-Gault) 45.3 39.2 BUN/Creatinine Ratio 23 (6-20) 23 (6-20) Glucose Level 237 mg/dL (70-99) 228 mg/dL (70-99) Calcium Level 7.0 mg/dL (8.5-10.1) 6.8 mg/dL (8.5-10.1) Phosphorus Level 2.8 mg/dL (2.6-4.7) 2.9 mg/dL (2.6-4.7) 2.8 mg/dL (2.6-4.7) Magnesium Level 2.6 mg/dL (1.8-2.4) 2.5 mg/dL (1.8-2.4) 2.5 mg/dL (1.8-2.4) Total Bilirubin 10.0 mg/dL (0.2-1.0) 9.5 mg/dL (0.2-1.0) Aspartate Amino Transf (AST/SGOT) 545 U/L (15-37) 432 U/L (15-37) Alanine Aminotransferase (ALT/SGPT) 1285 U/L (16-63) 1068 U/L (16-63) Alkaline Phosphatase 111 U/L (46-116) 103 U/L (46-116) Total Protein 4.7 g/dL (6.4-8.2) 4.7 g/dL (6.4-8.2) Albumin 1.8 g/dL (3.4-5.0) 1.7 g/dL (3.4-5.0) Albumin/Globulin Ratio 0.6 (1.0-1.7) 0.6 (1.0-1.7) White Blood Count 22.1 x10^3/uL (4.0-11.0) Red Blood Count 4.04 x10^6/uL (4.30-5.70) Hemoglobin 9.5 g/dL (13.0-17.5) Hematocrit 29.6 % (39.0-53.0) Mean Corpuscular Volume 73 fL (79-100) Mean Corpuscular Hemoglobin 24 pg (25-35) Mean Corpuscular Hemoglobin Concent 32 g/dL (31-37) Red Cell Distribution Width 18.1 % (11.5-14.5) Platelet Count 29 x10^3/uL (140-400) Neutrophils (%) (Auto) 96 % (31-73) Lymphocytes (%) (Auto) 2 % (24-48) Monocytes (%) (Auto) 1 % (0-9) Eosinophils (%) (Auto) 0 % (0-3) Basophils (%) (Auto) 1 % (0-3) Neutrophils # (Auto) 21.2 x10^3/uL (1.8-7.7) Lymphocytes # (Auto) 0.4 x10^3/uL (1.0-4.8) Monocytes # (Auto) 0.3 x10^3/uL (0.0-1.1) Eosinophils # (Auto) 0.0 x10^3/uL (0.0-0.7) Basophils # (Auto) 0.2 x10^3/uL (0.0-0.2) Prothrombin Time 26.1 SEC (11.7-14.0) Prothromb Time International Ratio 2.4 (0.8-1.1) Laboratory Tests Test 09/15/19 05:48 09/15/19 08:10 09/15/19 11:45 09/15/19 15:25 White Blood Count 28.5 x10^3/uL (4.0-11.0) 26.6 x10^3/uL (4.0-11.0) Red Blood Count 4.30 x10^6/uL (4.30-5.70) 4.34 x10^6/uL (4.30-5.70) Hemoglobin 10.1 g/dL (13.0-17.5) 10.2 g/dL (13.0-17.5) Hematocrit 31.5 % (39.0-53.0) 31.7 % (39.0-53.0) Mean Corpuscular Volume 73 fL (79-100) 73 fL (79-100) Mean Corpuscular Hemoglobin 24 pg (25-35) 24 pg (25-35) Mean Corpuscular Hemoglobin Concent 32 g/dL (31-37) 32 g/dL (31-37) Red Cell Distribution Width 18.6 % (11.5-14.5) 18.3 % (11.5-14.5) Platelet Count 38 x10^3/uL (140-400) 35 x10^3/uL (140-400) Sodium Level 141 mmol/L (136-145) 137 mmol/L (136-145) Potassium Level 4.3 mmol/L (3.5-5.1) 4.3 mmol/L (3.5-5.1) Chloride Level 106 mmol/L (98-107) 106 mmol/L (98-107) Carbon Dioxide Level 24 mmol/L (21-32) 26 mmol/L (21-32) Anion Gap 11 (6-14) 5 (6-14) Blood Urea Nitrogen 32 mg/dL (8-26) 36 mg/dL (8-26) Creatinine 1.5 mg/dL (0.7-1.3) 1.6 mg/dL (0.7-1.3) Estimated GFR (Cockcroft-Gault) 45.3 42.0 BUN/Creatinine Ratio 21 (6-20) 23 (6-20) Glucose Level 225 mg/dL (70-99) 278 mg/dL (70-99) Calcium Level 7.2 mg/dL (8.5-10.1) 7.2 mg/dL (8.5-10.1) Phosphorus Level 3.1 mg/dL (2.6-4.7) 2.9 mg/dL (2.6-4.7) Magnesium Level 2.7 mg/dL (1.8-2.4) 2.7 mg/dL (1.8-2.4) Total Bilirubin 10.1 mg/dL (0.2-1.0) 10.4 mg/dL (0.2-1.0) Aspartate Amino Transf (AST/SGOT) 723 U/L (15-37) 597 U/L (15-37) Alanine Aminotransferase (ALT/SGPT) 1489 U/L (16-63) 1394 U/L (16-63) Alkaline Phosphatase 115 U/L (46-116) 113 U/L (46-116) Total Protein 4.9 g/dL (6.4-8.2) 4.8 g/dL (6.4-8.2) Albumin 1.8 g/dL (3.4-5.0) 1.9 g/dL (3.4-5.0) Albumin/Globulin Ratio 0.6 (1.0-1.7) 0.7 (1.0-1.7) O2 Saturation 95 % (92-99) Arterial Blood pH 7.52 (7.35-7.45) Arterial Blood pCO2 at Patient Temp 26 mmHg (35-46) Arterial Blood pO2 at Patient Temp 82 mmHg (65-108) Arterial Blood HCO3 21 mmol/L (21-28) Arterial Blood Base Excess -1 mmol/L (-3-3) FiO2 40 Prothrombin Time 27.7 SEC (11.7-14.0) Prothromb Time International Ratio 2.6 (0.8-1.1) Activated Partial Thromboplast Time 34 SEC (24-38) Fibrinogen 124 mg/dL (200-440) Lactic Acid Level 2.6 mmol/L (0.4-2.0) 2.5 mmol/L (0.4-2.0) Test 09/15/19 17:40 09/15/19 23:59 09/16/19 04:30 Sodium Level 140 mmol/L (136-145) 139 mmol/L (136-145) 142 mmol/L (136-145) Potassium Level 4.6 mmol/L (3.5-5.1) 4.6 mmol/L (3.5-5.1) 4.6 mmol/L (3.5-5.1) Chloride Level 107 mmol/L (98-107) 108 mmol/L (98-107) 108 mmol/L (98-107) Carbon Dioxide Level 24 mmol/L (21-32) 25 mmol/L (21-32) 24 mmol/L (21-32) Anion Gap 9 (6-14) 6 (6-14) 10 (6-14) Blood Urea Nitrogen 35 mg/dL (8-26) 39 mg/dL (8-26) Creatinine 1.5 mg/dL (0.7-1.3) 1.7 mg/dL (0.7-1.3) Estimated GFR (Cockcroft-Gault) 45.3 39.2 BUN/Creatinine Ratio 23 (6-20) 23 (6-20) Glucose Level 237 mg/dL (70-99) 228 mg/dL (70-99) Calcium Level 7.0 mg/dL (8.5-10.1) 6.8 mg/dL (8.5-10.1) Phosphorus Level 2.8 mg/dL (2.6-4.7) 2.9 mg/dL (2.6-4.7) 2.8 mg/dL (2.6-4.7) Magnesium Level 2.6 mg/dL (1.8-2.4) 2.5 mg/dL (1.8-2.4) 2.5 mg/dL (1.8-2.4) Total Bilirubin 10.0 mg/dL (0.2-1.0) 9.5 mg/dL (0.2-1.0) Aspartate Amino Transf (AST/SGOT) 545 U/L (15-37) 432 U/L (15-37) Alanine Aminotransferase (ALT/SGPT) 1285 U/L (16-63) 1068 U/L (16-63) Alkaline Phosphatase 111 U/L (46-116) 103 U/L (46-116) Total Protein 4.7 g/dL (6.4-8.2) 4.7 g/dL (6.4-8.2) Albumin 1.8 g/dL (3.4-5.0) 1.7 g/dL (3.4-5.0) Albumin/Globulin Ratio 0.6 (1.0-1.7) 0.6 (1.0-1.7) White Blood Count 22.1 x10^3/uL (4.0-11.0) Red Blood Count 4.04 x10^6/uL (4.30-5.70) Hemoglobin 9.5 g/dL (13.0-17.5) Hematocrit 29.6 % (39.0-53.0) Mean Corpuscular Volume 73 fL (79-100) Mean Corpuscular Hemoglobin 24 pg (25-35) Mean Corpuscular Hemoglobin Concent 32 g/dL (31-37) Red Cell Distribution Width 18.1 % (11.5-14.5) Platelet Count 29 x10^3/uL (140-400) Neutrophils (%) (Auto) 96 % (31-73) Lymphocytes (%) (Auto) 2 % (24-48) Monocytes (%) (Auto) 1 % (0-9) Eosinophils (%) (Auto) 0 % (0-3) Basophils (%) (Auto) 1 % (0-3) Neutrophils # (Auto) 21.2 x10^3/uL (1.8-7.7) Lymphocytes # (Auto) 0.4 x10^3/uL (1.0-4.8) Monocytes # (Auto) 0.3 x10^3/uL (0.0-1.1) Eosinophils # (Auto) 0.0 x10^3/uL (0.0-0.7) Basophils # (Auto) 0.2 x10^3/uL (0.0-0.2) Prothrombin Time 26.1 SEC (11.7-14.0) Prothromb Time International Ratio 2.4 (0.8-1.1) Medications Active Scripts Medications Dose Route/Sig Max Daily Dose Days Date Category Naproxen 500 Mg Tablet 1 Tab PO PRN BID PRN 30 09/10/19 Reported Avodart (Dutasteride) 0.5 Mg Capsule 1 Cap PO DAILY 09/10/19 Reported Comments cxr reviewed ett ok b lat infilt Impression . IMPRESSION: 1. Acute hypoxemic respiratory failure/ARDS 2. SEPTIC SHOCK 3. Abnormal CT chest revealing bilateral pulmonary infiltrates. 4. Pneumonia, suspect gram-negative, gram-positive. 5. Possible acute pulmonary edema. 6. Possible interstitial lung disease/pulmonary fibrosis. 7. History of rheumatoid arthritis. 8. Atrial fibrillation with rapid ventricular response. 9. ACUTE MET ACIDOSIS, resolved, now resp alkalosis 10. ACUTE RENAL FAILURE Impression: Improved pulmonary aeration. Plan . cont vent support setting reviewed, not ready for sbt, abg reviewed, decrease rr to 20, try to decrease sedation FI02 titration to keep sat > 94% CRRT per nephro ANTIBX PER ID merrem, cont levaquin and dapto, diflucan added TF DVT AND GI PROPH change solumedrol to 40 q 812 hrs discussed rn, rt BRAULIO SALES MD Sep 16, 2019 05:48
[2019-09-16] MEDS: MIDAZOLAM 100mg/100ml NS BAG 100 ML IV PRN ×2 (05:54→22:53)
[2019-09-16] MEDS: VASOPRESSIN 40 UNIT in IV DEXTROSE 5% 100ML 100 ML IV PRN ×2 (05:54→22:52)
[2019-09-16] MEDS: POTASSIUM CHLORIDE 20 MEQ in DIALYSIS SOLUTION BGK 0/2.5 5,000 ML IV SCH ×12 (05:55→21:54)
[2019-09-16] MEDS: methylPREDNISolone SOD SUCC PF 40 MG/ML VIAL. IV SCH ×2 (05:57→21:10)
--- NOTE | 2019-09-16 06:59 | RAD ---
Indication:Respiratory failure TECHNIQUE:Portable AP chest X-ray COMPARISON: 09/14/2019 FINDINGS: Stable position of right IJ catheter, dialysis catheter, ET tube and NG tube. Heart is normal in size. Diffuse bilateral interstitial opacities. No focal consolidation. No pneumothorax or pleural effusion. Visualized bony thorax within normal limits. IMPRESSION: Interstitial pulmonary edema or atypical/viral infection. Stable position of lines and tubes. Electronically signed by: Carlito Jimenez DO (09/16/2019 6:56 AM) [facility]
--- NOTE | 2019-09-16 07:45 | PDOC ---
Infectious Disease Note Subjective: Subjective sedated on vent on pressors got fluid bolus for hypotension this am undergoing CRRT Fio2 40% ROS: ROS unable to obtain Vital Signs: Vital Signs Vital Signs Date Time Temp Pulse Resp B/P (MAP) Pulse Ox O2 Delivery O2 Flow Rate FiO2 09/16/19 06:00 78 30 100/49 (66) 100 Ventilator 09/16/19 04:00 98.1 98.1 09/15/19 07:57 15.0 Physical Exam: PHYSICAL EXAM GENERAL: orally intubated on vent HEENT: icteric, ETT +,no lesion in the mouth. NECK: Supple, RT IJ and central line + looks clean LUNGS: Clear anteriorly HEART: S1, S2 regular. ABDOMEN: Soft, nontender, no organomegaly. EXTREMITIES: +edema, no cyanosis. SKIN: Unremarkable. NEUROLOGIC: sedated intubated Medications: Inpatient Meds: Current Medications Medications (Trade) Dose Ordered Sig/Veena Start Time Stop Time Status Last Admin Dose Admin Albuterol Sulfate (Ventolin Neb Soln) 2.5 mg RTQID 09/10/19 08:00 09/15/19 20:27 2.5 MG Amiodarone HCl 450 mg/Dextrose 259 ml @ 17 mls/hr CONT PRN 09/10/19 09:00 09/11/19 02:33 17 MLS/HR Azithromycin (Zithromax) 250 mg DAILY 09/10/19 09:00 09/10/19 13:35 DC 09/10/19 08:38 250 MG Bisacodyl (Dulcolax Supp) 10 mg PRN DAILY PRN 09/10/19 10:00 09/10/19 10:00 10 MG Calcium Chloride 12.5 meq/ Bicarbonate Dialysis Soln w/ out KCl 5,008.9286 ml @ 1,000 mls/hr Q5H1M 09/12/19 13:00 09/12/19 12:18 DC Ceftriaxone Sodium (Rocephin) 1 gm Q24H 09/10/19 12:00 09/10/19 13:35 DC 09/10/19 12:55 1 GM Daptomycin 320 mg/ Sodium Chloride 50 ml @ 100 mls/hr Q24H 09/13/19 08:00 09/15/19 09:22 100 MLS/HR Diltiazem HCl 125 mg/Dextrose 125 ml @ 0 mls/hr CONT PRN 09/10/19 06:30 09/11/19 05:40 10 MLS/HR Dutasteride (Avodart) 0.5 mg DAILY 09/10/19 09:00 09/15/19 08:09 0.5 MG Epinephrine HCl 4 mg/Sodium Chloride 254 ml @ 28.061 mls/ hr CONT PRN 09/11/19 15:45 09/13/19 15:56 DC Fentanyl Citrate (Fentanyl 600 Mcg/30 ml CAN CAPPER) 600 mcg STK-MED ONCE 09/11/19 11:28 09/12/19 15:46 DC Furosemide (Lasix) 40 mg 1X ONCE 09/10/19 15:45 09/10/19 15:46 DC 09/10/19 16:38 40 MG Influenza Virus Vaccine Quadrival (Afluria Quad 2019-20 (3yr Up) Syringe) 0.5 ml ONCE ONCE 09/11/19 09:00 09/11/19 09:01 DC Lactobacillus Rhamnosus (Culturelle) 1 cap BID 09/10/19 09:00 09/12/19 09:15 DC 09/11/19 21:16 1 CAP Levofloxacin/ Dextrose 100 ml @ 100 mls/hr Q24H 09/12/19 09:00 09/15/19 08:09 100 MLS/HR Lidocaine HCl (Buffered Lidocaine 1%) 3 ml 1X ONCE 09/11/19 17:15 09/11/19 17:16 DC 09/11/19 17:14 3 ML Lidocaine HCl (Lta Kit) 4 ml STK-MED ONCE 09/10/19 16:00 09/12/19 09:29 DC Lorazepam (Ativan Inj) 0.5 mg 1X ONCE 09/10/19 11:45 09/10/19 11:47 DC 09/10/19 11:48 0.5 MG Meropenem 500 mg/ Sodium Chloride 50 ml @ 100 mls/hr Q12H 09/15/19 21:00 09/15/19 21:27 100 MLS/HR Methylprednisolone Sodium Succinate (SOLU-Medrol 40MG VIAL) 40 mg Q8HRS 09/10/19 08:00 09/16/19 05:57 40 MG Midazolam HCl 100 ml @ 0 mls/hr CONT PRN 09/11/19 10:15 09/16/19 05:54 6 MLS/HR Morphine Sulfate (Morphine Sulfate) 4 mg PRN Q2HR PRN 09/10/19 21:15 09/11/19 20:31 4 MG Naproxen (Naprosyn) 500 mg PRN BID PRN 09/10/19 06:30 09/12/19 11:01 DC Norepinephrine Bitartrate 250 ml @ 13.81 mls/ hr CONT PRN 09/11/19 10:45 09/12/19 10:47 25 MLS/HR Pantoprazole Sodium (PROTONIX VIAL for IV PUSH) 40 mg DAILYAC 09/12/19 12:00 09/15/19 08:09 40 MG Phytonadione (Vitamin K Ampule) 10 mg 1X ONCE 09/14/19 12:30 09/14/19 12:31 DC 09/14/19 12:26 10 MG Phytonadione 1 mg/ Dextrose 50.1 ml @ 102 mls/hr 1X ONCE 09/12/19 17:00 09/12/19 17:29 DC 09/12/19 17:07 102 MLS/HR Piperacillin Sod/ Tazobactam Sod 3.375 gm/Sodium Chloride 50 ml @ 100 mls/hr 1X ONCE 09/13/19 22:00 09/13/19 22:29 DC 09/13/19 22:27 100 MLS/HR Potassium Chloride 10 meq/ Bicarbonate Dialysis Soln w/ out KCl 5,005 ml @ 1,000 mls/hr Q5H1M 09/12/19 13:00 09/13/19 08:36 DC 09/13/19 06:05 1,000 MLS/HR Potassium Chloride 20 meq/ Bicarbonate Dialysis Soln w/ out KCl 5,010 ml @ 1,000 mls/hr Q5H1M 09/15/19 13:45 09/16/19 05:55 1,000 MLS/HR Propofol 100 ml @ 0 mls/hr CONT PRN 09/11/19 10:15 09/13/19 15:56 DC Sodium Bicarbonate 100 meq/Dextrose 1,100 ml @ 75 mls/hr [id number] 09/11/19 09:00 09/13/19 15:56 DC 09/13/19 06:03 75 MLS/HR Sodium Bicarbonate (Sodium Bicarb Adult 8.4% Syr) 100 meq 1X ONCE 10/15/19 11:15 09/11/19 11:16 DC 09/11/19 11:28 100 MEQ Sodium Chloride 500 ml @ 500 mls/hr 1X ONCE 09/11/19 21:15 09/11/19 22:14 DC 09/11/19 21:21 500 MLS/HR Sodium Chloride (Normal Saline Flush) 10 ml QSHIFT PRN 09/10/19 07:00 Succinylcholine Chloride (Anectine) 200 mg STK-MED ONCE 09/11/19 10:57 09/11/19 10:57 DC Vancomycin HCl (Vanco Per Pharmacy) 1 each PRN DAILY PRN 09/10/19 14:00 09/11/19 07:59 DC 09/10/19 16:55 1 EACH Vancomycin HCl (Vancomycin Trough Level) 1 each 1X ONCE 09/12/19 16:00 09/11/19 08:01 DC Vancomycin HCl 1.5 gm/Sodium Chloride 500 ml @ 250 mls/hr 1X ONCE 09/10/19 14:00 09/10/19 15:59 DC 09/10/19 16:39 250 MLS/HR Vancomycin HCl 1 gm/Sodium Chloride 250 ml @ 250 mls/hr Q24H 09/11/19 16:30 09/11/19 07:59 DC Vasopressin 40 unit/Dextrose 102 ml @ 6 mls/hr CONT PRN 09/11/19 11:30 09/16/19 05:54 6 MLS/HR Labs: Lab Laboratory Tests Test 09/15/19 08:10 09/15/19 11:45 09/15/19 15:25 09/15/19 17:40 O2 Saturation 95 % (92-99) Arterial Blood pH 7.52 (7.35-7.45) Arterial Blood pCO2 at Patient Temp 26 mmHg (35-46) Arterial Blood pO2 at Patient Temp 82 mmHg (65-108) Arterial Blood HCO3 21 mmol/L (21-28) Arterial Blood Base Excess -1 mmol/L (-3-3) FiO2 40 White Blood Count 26.6 x10^3/uL (4.0-11.0) Red Blood Count 4.34 x10^6/uL (4.30-5.70) Hemoglobin 10.2 g/dL (13.0-17.5) Hematocrit 31.7 % (39.0-53.0) Mean Corpuscular Volume 73 fL (79-100) Mean Corpuscular Hemoglobin 24 pg (25-35) Mean Corpuscular Hemoglobin Concent 32 g/dL (31-37) Red Cell Distribution Width 18.3 % (11.5-14.5) Platelet Count 35 x10^3/uL (140-400) Prothrombin Time 27.7 SEC (11.7-14.0) Prothromb Time International Ratio 2.6 (0.8-1.1) Activated Partial Thromboplast Time 34 SEC (24-38) Fibrinogen 124 mg/dL (200-440) Sodium Level 137 mmol/L (136-145) 140 mmol/L (136-145) Potassium Level 4.3 mmol/L (3.5-5.1) 4.6 mmol/L (3.5-5.1) Chloride Level 106 mmol/L (98-107) 107 mmol/L (98-107) Carbon Dioxide Level 26 mmol/L (21-32) 24 mmol/L (21-32) Anion Gap 5 (6-14) 9 (6-14) Blood Urea Nitrogen 36 mg/dL (8-26) 35 mg/dL (8-26) Creatinine 1.6 mg/dL (0.7-1.3) 1.5 mg/dL (0.7-1.3) Estimated GFR (Cockcroft-Gault) 42.0 45.3 BUN/Creatinine Ratio 23 (6-20) 23 (6-20) Glucose Level 278 mg/dL (70-99) 237 mg/dL (70-99) Lactic Acid Level 2.6 mmol/L (0.4-2.0) 2.5 mmol/L (0.4-2.0) Calcium Level 7.2 mg/dL (8.5-10.1) 7.0 mg/dL (8.5-10.1) Phosphorus Level 2.9 mg/dL (2.6-4.7) 2.8 mg/dL (2.6-4.7) Magnesium Level 2.7 mg/dL (1.8-2.4) 2.6 mg/dL (1.8-2.4) Total Bilirubin 10.4 mg/dL (0.2-1.0) 10.0 mg/dL (0.2-1.0) Aspartate Amino Transf (AST/SGOT) 597 U/L (15-37) 545 U/L (15-37) Alanine Aminotransferase (ALT/SGPT) 1394 U/L (16-63) 1285 U/L (16-63) Alkaline Phosphatase 113 U/L (46-116) 111 U/L (46-116) Total Protein 4.8 g/dL (6.4-8.2) 4.7 g/dL (6.4-8.2) Albumin 1.9 g/dL (3.4-5.0) 1.8 g/dL (3.4-5.0) Albumin/Globulin Ratio 0.7 (1.0-1.7) 0.6 (1.0-1.7) Test 09/15/19 23:59 09/16/19 04:30 Sodium Level 139 mmol/L (136-145) 142 mmol/L (136-145) Potassium Level 4.6 mmol/L (3.5-5.1) 4.6 mmol/L (3.5-5.1) Chloride Level 108 mmol/L (98-107) 108 mmol/L (98-107) Carbon Dioxide Level 25 mmol/L (21-32) 24 mmol/L (21-32) Anion Gap 6 (6-14) 10 (6-14) Phosphorus Level 2.9 mg/dL (2.6-4.7) 2.8 mg/dL (2.6-4.7) Magnesium Level 2.5 mg/dL (1.8-2.4) 2.5 mg/dL (1.8-2.4) White Blood Count 22.1 x10^3/uL (4.0-11.0) Red Blood Count 4.04 x10^6/uL (4.30-5.70) Hemoglobin 9.5 g/dL (13.0-17.5) Hematocrit 29.6 % (39.0-53.0) Mean Corpuscular Volume 73 fL (79-100) Mean Corpuscular Hemoglobin 24 pg (25-35) Mean Corpuscular Hemoglobin Concent 32 g/dL (31-37) Red Cell Distribution Width 18.1 % (11.5-14.5) Platelet Count 29 x10^3/uL (140-400) Neutrophils (%) (Auto) 96 % (31-73) Lymphocytes (%) (Auto) 2 % (24-48) Monocytes (%) (Auto) 1 % (0-9) Eosinophils (%) (Auto) 0 % (0-3) Basophils (%) (Auto) 1 % (0-3) Neutrophils # (Auto) 21.2 x10^3/uL (1.8-7.7) Lymphocytes # (Auto) 0.4 x10^3/uL (1.0-4.8) Monocytes # (Auto) 0.3 x10^3/uL (0.0-1.1) Eosinophils # (Auto) 0.0 x10^3/uL (0.0-0.7) Basophils # (Auto) 0.2 x10^3/uL (0.0-0.2) Prothrombin Time 26.1 SEC (11.7-14.0) Prothromb Time International Ratio 2.4 (0.8-1.1) Blood Urea Nitrogen 39 mg/dL (8-26) Creatinine 1.7 mg/dL (0.7-1.3) Estimated GFR (Cockcroft-Gault) 39.2 BUN/Creatinine Ratio 23 (6-20) Glucose Level 228 mg/dL (70-99) Calcium Level 6.8 mg/dL (8.5-10.1) Total Bilirubin 9.5 mg/dL (0.2-1.0) Aspartate Amino Transf (AST/SGOT) 432 U/L (15-37) Alanine Aminotransferase (ALT/SGPT) 1068 U/L (16-63) Alkaline Phosphatase 103 U/L (46-116) Total Protein 4.7 g/dL (6.4-8.2) Albumin 1.7 g/dL (3.4-5.0) Albumin/Globulin Ratio 0.6 (1.0-1.7) Micro reviewed bc neg throat c/s neg sputum neg Objective: Assessment: Pt with multiorgan failure 1. Respiratory failure. Pulmonary infiltrate. likely respiratory infection though w/u neg with acute respiratory distress syndrome. 2. Leukocytosis.reactive 3 Acute kidney injury, multifactorial from hypotension on CRRT 4. 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 DIC 6 History of rheumatoid arthritis, had been on naproxen. 7 .A fib with RVR and Circulatory failure. 8. Thrombocytopenia from DIC Plan: Plan of Care cont merrem ( 09/15);was on zosyn, dc due to thrombocytopenia from dic cont empiric levaquin and dapto Start diflucan cont supportive care f/u c/s and labs f/u cmv and ebv serologies though clinically less likely less likely coccidiodes but with recent travel to [facility] will obtain serologies Condition critical prognosis very poor D/W Nursing staff ENMANUEL GAN MD Sep 16, 2019 07:44
[2019-09-16] MEDS: ALBUTEROL SULFATE 2.5 MG/3 ML NEBU. NEB SCH ×4 (08:00→20:24)
[2019-09-16] MEDS ORDERED: FLUCONAZOLE 100MG/50ML PREMIX 50 ML IV SCH (08:15)
[2019-09-16] MEDS: DAPTOmycin (GENERIC) IVPB 320 MG in IV NORMAL SALINE 50ML 50 ML IV SCH (08:17)
[2019-09-16] MEDS: MEROPENEM 500 MG in IV NORMAL SALINE 50ML 50 ML IV SCH ×2 (08:18→21:10)
[2019-09-16] MEDS: DUTASTERIDE 0.5 MG CAPSULE PO SCH (08:19)
[2019-09-16] MEDS: PANTOPRAZOLE IV PUSH 40 MG VIAL. IVP SCH (08:19)
[2019-09-16] MEDS ORDERED: PHYTONADIONE 10 MG/ML AMPUL. SQ ONE ×2 (08:45→09:00)
[2019-09-16 08:50] LABS: BASE EXCESS ABG 0 mmol/L (-3-3); HCO3 ABG 23 mmol/L (21-28); PCO2 ABG 30 mmHg (35-46); PO2 ABG 72 mmHg (65-108); SAT O2 ABG 93 % (92-99)
--- NOTE | 2019-09-16 09:47 | PN ---
DATE: 09/16/2019 SUBJECTIVE: The patient continued to be sedated, intubated and mechanically ventilated. He continued to be maintaining his oxygen saturation at 100% on FiO2 of 40%, continued to be on vasopressin and also continuous renal replacement therapy. He had a bloody bowel movement this morning and he has high gastric residual, so his tube feeding was discontinued. PHYSICAL EXAMINATION: GENERAL: When I examined him, he looked pale, but no jaundice, cyanosis or thyromegaly. No jugular venous distention. No limb edema. VITAL SIGNS: His heart rate was 70, blood pressure was 119/60, temperature was 97.3, respiratory rate was 30 and oxygen saturation was 100% on FiO2 of 40%. HEAD, EYES, EARS, NOSE AND THROAT: Showed normocephalic, atraumatic. Orotracheal and orogastric tube in place. NECK: Supple. CARDIAC: Normal first and second heart sounds. No gallop or murmur. CHEST: Clear to auscultation. No crepitation or rhonchi. ABDOMEN: Distended, soft, sluggish bowel sounds. NEUROLOGIC: He is heavily sedated. His intake over the last 24 hours was 3140, no output was recorded. No urine output. LABORATORY DATA: His white cell count is trending down today, it was 22,000, hemoglobin 9.5, hematocrit 29.6, MCV 73 and platelet count of 29,000. His prothrombin time was 26.1, INR of 2.4. His chemistry showed a serum sodium 142, potassium 4.6, chloride 108, bicarbonate 24, anion gap of 10, BUN 39, creatinine 1.7, and estimated GFR was 39 mL per minute. His glucose was 128. His calcium was 6.8, phosphorus 2.8, and magnesium 2.5. His bilirubin was high at 9.5; however, AST, ALT, although elevated are trending down. His alkaline phosphatase has normalized. Total protein was 4.7 and albumin was 1.7. ASSESSMENT: 1. Acute kidney injury, likely due to acute tubular necrosis secondary to sepsis. He continues to be completely anuric, currently on continuous renal replacement therapy, tolerating it well. 2. Sepsis for which he is on antibiotic in the form of levofloxacin, daptomycin and piperacillin and tazobactam as well as fluconazole. 3. Hypertension, for which he continues to be on vasopressin and Levophed and epinephrine were discontinued. 4. Impaired liver enzymes steadily improving. 5. Community-acquired pneumonia. 6. Rheumatoid arthritis. 7. Possible interstitial lung disease and pulmonary fibrosis. 8. Atrial fibrillation with rapid ventricular response for which he was cardioverted. 9. In the Intensive Care Unit with worsening thrombocytopenia, his platelet count came down from 252 down to 29,000. 10. He has an episode of lower gastrointestinal bleed; however, his hemoglobin and hematocrit remained stable. 11. High gastric residual, for which his tube feed was on hold. 12. Acute hypoxic respiratory failure for which he continued to be mechanical ventilation, possible acute respiratory distress syndrome. PLAN: To continue with mechanical ventilation. Continue with continuous renal replacement therapy. Continue with antibiotic. Continue with DVT and GI prophylaxis. Continue with Solu-Medrol. His platelets are trending down and marketing administrator is on board. I do not think he will need platelet transfusion as of now. I will check his H and H this afternoon to make sure his hemoglobin has dropped. INGRIS FINCH MD DR: JOSIANE/jose JOB#: [id number] / [id number]
[2019-09-16 11:53] LABS: BASO # 0.2 x10^3/uL (0.0-0.2); BASO % 1 % (0-3); EOS % 0 % (0-3); HEMATOCRIT 29.7 % (39.0-53.0); HEMOGLOBIN 9.5 g/dL (13.0-17.5); LYMPH # 0.3 x10^3/uL (1.0-4.8); LYMPH % 1 % (24-48); MEAN CORPUSCULAR HEMOGLOBIN 23 pg (25-35); MEAN CORPUSCULAR HGB CONC 32 g/dL (31-37); MEAN CORPUSCULAR VOLUME 73 fL (79-100); MONO # 0.3 x10^3/uL (0.0-1.1); MONO % 1 % (0-9); NEUT # 20.5 x10^3/uL (1.8-7.7); NEUT % 97 % (31-73); PLATELET COUNT 32 x10^3/uL (140-400); RED BLOOD COUNT 4.05 x10^6/uL (4.30-5.70); RED CELL DISTRIBUTION WIDTH 18.5 % (11.5-14.5); WHITE BLOOD COUNT 21.3 x10^3/uL (4.0-11.0)
[2019-09-16 11:54] LABS: PROTHROMBIN TIME PATIENT 25.4 SEC (11.7-14.0)
[2019-09-16 12:01] LABS: ALBUMIN 1.7 g/dL (3.4-5.0); ALBUMIN/GLOBULIN RATIO 0.6 (1.0-1.7); CALCIUM 7.1 mg/dL (8.5-10.1); CREATININE 1.6 mg/dL (0.7-1.3); MAGNESIUM 2.6 mg/dL (1.8-2.4); PHOSPHORUS 3.5 mg/dL (2.6-4.7); POTASSIUM 4.7 mmol/L (3.5-5.1); TOTAL BILIRUBIN 10.1 mg/dL (0.2-1.0); TOTAL PROTEIN 4.6 g/dL (6.4-8.2)
[2019-09-16 12:06] LABS: FIO2 ABG 40
--- NOTE | 2019-09-16 14:43 | PDOC ---
Date and Time Existing Right radial arterial line has good waveform but cannot be drawn from. Frequent labs and ABGs are being done. Left radial artery no pulse. Unable to locate with doppler. Ultrasound utilized and I cannot see either a radial or an ulnar artery. He has a large scar 3 inch above wrist which may have resulted in damage to his distal arteries. Sterile prep, Left brachial artery accessed with Sono guidance. STAT locked in place, sterile dressing. Good waveform and blood readily draws back. Current Medications Current Medications Amiodarone HCl 450 mg/Dextrose 259 ml @ 17 mls/hr CONT PRN IV SEE I/O RECORD Last administered on 09/11/19at 02:33; Start 09/10/19 at 09:00 Diltiazem HCl 125 mg/Dextrose 125 ml @ 0 mls/hr CONT PRN IV SEE I/O RECORD Last administered on 09/11/19at 05:40; Start 09/10/19 at 06:30 Lactobacillus Rhamnosus (Culturelle) 1 cap BID PO Last administered on 09/11/19at 21:16; Start 09/10/19 at 09:00; Stop 09/12/19 at 09:15; Status DC Ceftriaxone Sodium (Rocephin) 1 gm Q24H IVP Last administered on 09/10/19at 12:55; Start 09/10/19 at 12:00; Stop 09/10/19 at 13:35; Status DC Azithromycin (Zithromax) 250 mg DAILY PO Last administered on 09/10/19at 08:38; Start 09/10/19 at 09:00; Stop 09/10/19 at 13:35; Status DC Dutasteride (Avodart) 0.5 mg DAILY PO Last administered on 09/15/19at 08:09; Start 09/10/19 at 09:00 Naproxen (Naprosyn) 500 mg PRN BID PRN PO MODERATE PAIN 4-6; Start 09/10/19 at 06:30; Stop 09/12/19 at 11:01; Status DC Albuterol Sulfate (Ventolin Neb Soln) 2.5 mg RTQID NEB Last administered on 09/16/19at 12:48; Start 09/10/19 at 08:00 Methylprednisolone Sodium Succinate (SOLU-Medrol 40MG VIAL) 40 mg Q8HRS IV Last administered on 09/16/19at 05:57; Start 09/10/19 at 08:00; Stop 09/16/19 at 10:46; Status DC Sodium Chloride (Normal Saline Flush) 10 ml QSHIFT PRN IV AFTER MEDS AND BLOOD DRAWS; Start 09/10/19 at 07:00 Influenza Virus Vaccine Quadrival (Afluria Quad 2019-20 (3yr Up) Syringe) 0.5 ml ONCE ONCE VAX IM ; Start 09/11/19 at 09:00; Stop 09/11/19 at 09:01; Status DC Bisacodyl (Dulcolax Supp) 10 mg PRN DAILY PRN [place] CONSTIPATION Last administered on 09/10/19at 10:00; Start 09/10/19 at 10:00 Lorazepam (Ativan Inj) 0.5 mg 1X ONCE IVP Last administered on 09/10/19at 11:10; Start 09/10/19 at 11:15; Stop 09/10/19 at 11:16; Status DC Lorazepam (Ativan Inj) 0.5 mg 1X ONCE IVP Last administered on 09/10/19at 11:48; Start 09/10/19 at 11:45; Stop 09/10/19 at 11:47; Status DC Morphine Sulfate (Morphine Sulfate) 5 mg 1X ONCE IV Last administered on 09/10/19at 11:55; Start 09/10/19 at 12:00; Stop 09/10/19 at 12:01; Status DC Morphine Sulfate (Morphine Sulfate) 4 mg 1X ONCE IV Last administered on 09/10/19at 12:56; Start 09/10/19 at 13:00; Stop 09/10/19 at 13:01; Status DC Vancomycin HCl 1 gm/Sodium Chloride 250 ml @ 250 mls/hr Q12H IV ; Start at 13:30; Status UNV Piperacillin Sod/ Tazobactam Sod 3.375 gm/Sodium Chloride 50 ml @ 100 mls/hr Q6HRS IV Last administered on 09/11/19at 05:39; Start 09/10/19 at 14:00; Stop 09/11/19 at 08:20; Status DC Vancomycin HCl 1.5 gm/Sodium Chloride 500 ml @ 250 mls/hr 1X ONCE IV Last administered on 09/10/19at 16:39; Start 09/10/19 at 14:00; Stop 09/10/19 at 15:59; Status DC Vancomycin HCl (Vanco Per Pharmacy) 1 each PRN DAILY PRN MC SEE COMMENTS Last administered on 09/10/19at 16:55; Start 09/10/19 at 14:00; Stop 09/11/19 at 07:59; Status DC Furosemide (Lasix) 40 mg DAILY IVP ; Start 09/11/19 at 09:00; Stop 09/10/19 at 15:41; Status DC Furosemide (Lasix) 20 mg 1X ONCE IVP ; Start 09/10/19 at 15:45; Stop 09/10/19 at 15:46; Status DC Furosemide (Lasix) 40 mg 1X ONCE IVP Last administered on 09/10/19at 16:38; Start 09/10/19 at 15:45; Stop 09/10/19 at 15:46; Status DC Vancomycin HCl 1 gm/Sodium Chloride 250 ml @ 250 mls/hr Q24H IV ; Start 09/11/19 at 16:30; Stop 09/11/19 at 07:59; Status DC Vancomycin HCl (Vancomycin Trough Level) 1 each 1X ONCE MC ; Start 09/12/19 at 16:00; Stop 09/11/19 at 08:01; Status DC Morphine Sulfate (Morphine Sulfate) 4 mg PRN Q2HR PRN IV PAIN, elevated respirations Last administered on 09/11/19at 20:31; Start 09/10/19 at 21:15 Succinylcholine Chloride (Anectine) 200 mg STK-MED ONCE .ROUTE ; Start 09/11/19 at 08:09; Stop 09/11/19 at 08:09; Status DC Propofol 100 ml @ As Directed STK-MED ONCE IV ; Start 09/11/19 at 08:09; Stop 09/11/19 at 08:09; Status DC Sodium Bicarbonate 100 meq/Dextrose 1,100 ml @ 75 mls/hr [id number] IV Last administered on 09/13/19at 06:03; Start 09/11/19 at 09:00; Stop 09/13/19 at 15:56; Status DC Piperacillin Sod/ Tazobactam Sod 3.375 gm/Sodium Chloride 50 ml @ 100 mls/hr Q8HRS IV Last administered on 09/15/19at 05:01; Start 09/11/19 at 14:00; Stop 09/15/19 at 08:00; Status DC Levofloxacin/ Dextrose 100 ml @ 100 mls/hr 1X ONCE IV Last administered on 09/11/19at 12:39; Start 09/11/19 at 08:30; Stop 09/11/19 at 09:29; Status DC Levofloxacin/ Dextrose 50 ml @ 50 mls/hr Q24H IV Last administered on 09/11/19at 12:27; Start 09/12/19 at 09:00; Stop 09/11/19 at 16:31; Status DC Fentanyl Citrate 30 ml @ 0 mls/hr CONT PRN IV SEE PROTOCOL Last administered on 09/16/19at 08:03; Start 09/11/19 at 10:15 Propofol 100 ml @ 0 mls/hr CONT PRN IV SEE PROTOCOL; Start 09/11/19 at 10:15; Stop 09/13/19 at 15:56; Status DC Midazolam HCl 100 ml @ 0 mls/hr CONT PRN IV SEE PROTOCOL Last administered on 09/16/19at 05:54; Start 09/11/19 at 10:15 Norepinephrine Bitartrate 250 ml @ 13.81 mls/ hr CONT PRN IV SEE I/O RECORD Last administered on 09/12/19at 10:47; Start 09/11/19 at 10:45 Sodium Bicarbonate (Sodium Bicarb Adult 8.4% Syr) 50 meq STK-MED ONCE .ROUTE ; Start 09/11/19 at 10:49; Stop 09/11/19 at 10:50; Status DC Succinylcholine Chloride (Anectine) 200 mg STK-MED ONCE .ROUTE ; Start 09/11/19 at 10:57; Stop 09/11/19 at 10:57; Status DC Sodium Bicarbonate (Sodium Bicarb Adult 8.4% Syr) 100 meq 1X ONCE IV Last administered on 09/11/19at 11:28; Start 09/11/19 at 11:15; Stop 09/11/19 at 11:16; Status DC Vasopressin 40 unit/Dextrose 102 ml @ 6 mls/hr CONT PRN IV SEE I/O RECORD Last administered on 09/16/19at 05:54; Start 09/11/19 at 11:30 Sodium Chloride 1,000 ml @ 1,770 mls/hr Q34M IV Last administered on 09/11/19at 12:28; Start 09/11/19 at 11:45; Stop 09/11/19 at 12:45; Status DC Lidocaine HCl (Buffered Lidocaine 1%) 3 ml STK-MED ONCE .ROUTE ; Start 09/11/19 at 15:23; Stop 09/11/19 at 15:23; Status DC Epinephrine HCl 4 mg/Sodium Chloride 254 ml @ 28.061 mls/ hr CONT PRN IV SEE I/O RECORD; Start 09/11/19 at 15:45; Stop 09/13/19 at 15:56; Status DC Levofloxacin/ Dextrose 100 ml @ 100 mls/hr Q24H IV Last administered on 09/16/19at 08:19; Start 09/12/19 at 09:00 Lidocaine HCl (Buffered Lidocaine 1%) 3 ml 1X ONCE INJ Last administered on 09/11/19at 17:14; Start 09/11/19 at 17:15; Stop 09/11/19 at 17:16; Status DC Sodium Chloride 500 ml @ 500 mls/hr 1X ONCE IV Last administered on 09/11/19at 21:21; Start 09/11/19 at 21:15; Stop 09/11/19 at 22:14; Status DC Calcium Chloride 12.5 meq/ Bicarbonate Dialysis Soln w/ out KCl 5,008.9286 ml @ 1,000 mls/hr Q5H1M IV ; Start 09/12/19 at 09:00; Stop 09/12/19 at 12:18; Status DC Calcium Chloride 12.5 meq/ Bicarbonate Dialysis Soln w/ out KCl 5,008.9286 ml @ 1,000 mls/hr Q5H1M IV ; Start 09/12/19 at 09:00; Stop 09/12/19 at 10:00; Status DC Calcium Chloride 12.5 meq/ Bicarbonate Dialysis Soln w/ out KCl 5,008.9286 ml @ 1,000 mls/hr Q5H1M IV ; Start 09/12/19 at 09:00; Stop 09/12/19 at 10:02; Status DC Lidocaine HCl (Lta Kit) 4 ml STK-MED ONCE TP ; Start 09/10/19 at 16:00; Stop 09/12/19 at 09:29; Status DC Calcium Chloride 12.5 meq/ Bicarbonate Dialysis Soln w/ out KCl 5,008.9286 ml @ 1,500 mls/hr Q3H21M IV ; Start 09/12/19 at 12:00; Stop 09/12/19 at 11:28; Status DC Calcium Chloride 12.5 meq/ Bicarbonate Dialysis Soln w/ out KCl 5,008.9286 ml @ 1,500 mls/hr Q3H21M IV ; Start 09/12/19 at 12:00; Stop 09/12/19 at 11:30; Status DC Pantoprazole Sodium (PROTONIX VIAL for IV PUSH) 40 mg DAILYAC IVP Last administered on 09/16/19at 08:19; Start 09/12/19 at 12:00 Calcium Chloride 12.5 meq/ Bicarbonate Dialysis Soln w/ out KCl 5,008.9286 ml @ 1,000 mls/hr Q5H1M IV ; Start 09/12/19 at 13:00; Stop 09/12/19 at 12:18; Status DC Calcium Chloride 12.5 meq/ Bicarbonate Dialysis Soln w/ out KCl 5,008.9286 ml @ 1,000 mls/hr Q5H1M IV ; Start 09/12/19 at 13:00; Stop 09/12/19 at 12:18; Status DC Potassium Chloride 10 meq/ Bicarbonate Dialysis Soln w/ out KCl 5,005 ml @ 1,000 mls/hr Q5H1M IV Last administered on 09/13/19at 06:04; Start 09/12/19 at 13:00; Stop 09/13/19 at 08:35; Status DC Potassium Chloride 10 meq/ Bicarbonate Dialysis Soln w/ out KCl 5,005 ml @ 1,000 mls/hr Q5H1M IV Last administered on 09/13/19at 06:04; Start 09/12/19 at 12:30; Stop 09/13/19 at 08:37; Status DC Potassium Chloride 10 meq/ Bicarbonate Dialysis Soln w/ out KCl 5,005 ml @ 1,000 mls/hr Q5H1M IV Last administered on 09/13/19at 06:05; Start 09/12/19 at 13:00; Stop 09/13/19 at 08:36; Status DC Fentanyl Citrate (Fentanyl 600 Mcg/30 ml SYNTHETIC CL[employer] BINDING CUTTER) 600 mcg STK-MED ONCE IV ; Start 09/11/19 at 11:28; Stop 09/12/19 at 15:46; Status DC Phytonadione 1 mg/ Dextrose 50.1 ml @ 102 mls/hr 1X ONCE IV Last administered on 09/12/19at 17:07; Start 09/12/19 at 17:00; Stop 09/12/19 at 17:29; Status DC Daptomycin 320 mg/ Sodium Chloride 50 ml @ 100 mls/hr Q24H IV Last admi nistered on 09/16/19at 08:17; Start 09/13/19 at 08:00 Potassium Chloride 20 meq/ Bicarbonate Dialysis Soln w/ out KCl 5,010 ml @ 1,000 mls/hr Q5H1M IV Last administered on 09/16/19at 12:30; Start 09/13/19 at 09:00 Potassium Chloride 20 meq/ Bicarbonate Dialysis Soln w/ out KCl 5,010 ml @ 1,000 mls/hr Q5H1M IV Last administered on 09/16/19at 12:29; Start 09/13/19 at 08:45 Potassium Chloride 20 meq/ Bicarbonate Dialysis Soln w/ out KCl 5,010 ml @ 1,000 mls/hr Q5H1M IV Last administered on 09/15/19at 08:42; Start 09/13/19 at 08:45; Stop 09/15/19 at 13:48; Status DC Piperacillin Sod/ Tazobactam Sod 3.375 gm/Sodium Chloride 50 ml @ 100 mls/hr 1X ONCE IV Last administered on 09/13/19at 22:27; Start 09/13/19 at 22:00; Stop 09/13/19 at 22:29; Status DC Phytonadione (Vitamin K Ampule) 10 mg 1X ONCE SQ Last administered on 09/14/19at 12:26; Start 09/14/19 at 12:30; Stop 09/14/19 at 12:31; Status DC Meropenem 500 mg/ Sodium Chloride 50 ml @ 100 mls/hr DAILY IV Last administered on 09/15/19at 08:52; Start 09/15/19 at 09:00; Stop 09/15/19 at 11:41; Status DC Meropenem 500 mg/ Sodium Chloride 50 ml @ 100 mls/hr Q12H IV Last administered on 09/16/19at 08:18; Start 09/15/19 at 21:00 Potassium Chloride 20 meq/ Bicarbonate Dialysis Soln w/ out KCl 5,010 ml @ 1,000 mls/hr Q5H1M IV Last administered on 09/16/19at 12:30; Start 09/15/19 at 13:45 Fluconazole/ Sodium Chloride 50 ml @ 100 mls/hr Q24H IV ; Start 09/16/19 at 08:15; Stop 09/16/19 at 08:14; Status DC Phytonadione (Vitamin K Ampule) 10 mg 1X ONCE SQ Last administered on 09/16/19at 09:40; Start 09/16/19 at 09:00; Stop 09/16/19 at 09:01; Status DC Phytonadione (Vitamin K Ampule) 10 mg 1X ONCE SQ ; Start 09/16/19 at 08:45; Stop 09/16/19 at 08:46; Status UNV Methylprednisolone Sodium Succinate (SOLU-Medrol 40MG VIAL) 40 mg Q12HR IV ; Start 09/16/19 at 21:00 Active Scripts Active Reported Naproxen 500 Mg Tablet 1 Tab PO PRN BID PRN 30 Days Avodart (Dutasteride) 0.5 Mg Capsule 1 Cap PO DAILY Pertinent Labs/Test Laboratory Tests Test 09/14/19 17:15 09/14/19 23:00 09/15/19 05:48 09/15/19 08:10 Sodium Level 138 mmol/L (136-145) 138 mmol/L (136-145) 141 mmol/L (136-145) Potassium Level 4.4 mmol/L (3.5-5.1) 4.2 mmol/L (3.5-5.1) 4.3 mmol/L (3.5-5.1) Chloride Level 103 mmol/L (98-107) 106 mmol/L (98-107) 106 mmol/L (98-107) Carbon Dioxide Level 26 mmol/L (21-32) 24 mmol/L (21-32) 24 mmol/L (21-32) Anion Gap 9 (6-14) 8 (6-14) 11 (6-14) Blood Urea Nitrogen 32 mg/dL (8-26) 32 mg/dL (8-26) 32 mg/dL (8-26) Creatinine 1.7 mg/dL (0.7-1.3) 1.6 mg/dL (0.7-1.3) 1.5 mg/dL (0.7-1.3) Estimated GFR (Cockcroft-Gault) 39.2 42.0 45.3 BUN/Creatinine Ratio 19 (6-20) 20 (6-20) 21 (6-20) Glucose Level 203 mg/dL (70-99) 245 mg/dL (70-99) 225 mg/dL (70-99) Calcium Level 7.5 mg/dL (8.5-10.1) 6.9 mg/dL (8.5-10.1) 7.2 mg/dL (8.5-10.1) Phosphorus Level 2.9 mg/dL (2.6-4.7) 3.3 mg/dL (2.6-4.7) 3.1 mg/dL (2.6-4.7) Magnesium Level 2.8 mg/dL (1.8-2.4) 2.7 mg/dL (1.8-2.4) 2.7 mg/dL (1.8-2.4) Total Bilirubin 11.4 mg/dL (0.2-1.0) 10.2 mg/dL (0.2-1.0) 10.1 mg/dL (0.2-1.0) Aspartate Amino Transf (AST/SGOT) 1146 U/L (15-37) 863 U/L (15-37) 723 U/L (15-37) Alanine Aminotransferase (ALT/SGPT) 2013 U/L (16-63) 1623 U/L (16-63) 1489 U/L (16-63) Alkaline Phosphatase 138 U/L (46-116) 116 U/L (46-116) 115 U/L (46-116) Total Protein 5.7 g/dL (6.4-8.2) 4.7 g/dL (6.4-8.2) 4.9 g/dL (6.4-8.2) Albumin 2.2 g/dL (3.4-5.0) 1.9 g/dL (3.4-5.0) 1.8 g/dL (3.4-5.0) Albumin/Globulin Ratio 0.6 (1.0-1.7) 0.7 (1.0-1.7) 0.6 (1.0-1.7) White Blood Count 28.5 x10^3/uL (4.0-11.0) Red Blood Count 4.30 x10^6/uL (4.30-5.70) Hemoglobin 10.1 g/dL (13.0-17.5) Hematocrit 31.5 % (39.0-53.0) Mean Corpuscular Volume 73 fL (79-100) Mean Corpuscular Hemoglobin 24 pg (25-35) Mean Corpuscular Hemoglobin Concent 32 g/dL (31-37) Red Cell Distribution Width 18.6 % (11.5-14.5) Platelet Count 38 x10^3/uL (140-400) O2 Saturation 95 % (92-99) Arterial Blood pH 7.52 (7.35-7.45) Arterial Blood pCO2 at Patient Temp 26 mmHg (35-46) Arterial Blood pO2 at Patient Temp 82 mmHg (65-108) Arterial Blood HCO3 21 mmol/L (21-28) Arterial Blood Base Excess -1 mmol/L (-3-3) FiO2 40 Test 09/15/19 11:45 09/15/19 15:25 09/15/19 17:40 09/15/19 23:59 White Blood Count 26.6 x10^3/uL (4.0-11.0) Red Blood Count 4.34 x10^6/uL (4.30-5.70) Hemoglobin 10.2 g/dL (13.0-17.5) Hematocrit 31.7 % (39.0-53.0) Mean Corpuscular Volume 73 fL (79-100) Mean Corpuscular Hemoglobin 24 pg (25-35) Mean Corpuscular Hemoglobin Concent 32 g/dL (31-37) Red Cell Distribution Width 18.3 % (11.5-14.5) Platelet Count 35 x10^3/uL (140-400) Prothrombin Time 27.7 SEC (11.7-14.0) Prothromb Time International Ratio 2.6 (0.8-1.1) Activated Partial Thromboplast Time 34 SEC (24-38) Fibrinogen 124 mg/dL (200-440) Sodium Level 137 mmol/L (136-145) 140 mmol/L (136-145) 139 mmol/L (136-145) Potassium Level 4.3 mmol/L (3.5-5.1) 4.6 mmol/L (3.5-5.1) 4.6 mmol/L (3.5-5.1) Chloride Level 106 mmol/L (98-107) 107 mmol/L (98-107) 108 mmol/L (98-107) Carbon Dioxide Level 26 mmol/L (21-32) 24 mmol/L (21-32) 25 mmol/L (21-32) Anion Gap 5 (6-14) 9 (6-14) 6 (6-14) Blood Urea Nitrogen 36 mg/dL (8-26) 35 mg/dL (8-26) Creatinine 1.6 mg/dL (0.7-1.3) 1.5 mg/dL (0.7-1.3) Estimated GFR (Cockcroft-Gault) 42.0 45.3 BUN/Creatinine Ratio 23 (6-20) 23 (6-20) Glucose Level 278 mg/dL (70-99) 237 mg/dL (70-99) Lactic Acid Level 2.6 mmol/L (0.4-2.0) 2.5 mmol/L (0.4-2.0) Calcium Level 7.2 mg/dL (8.5-10.1) 7.0 mg/dL (8.5-10.1) Phosphorus Level 2.9 mg/dL (2.6-4.7) 2.8 mg/dL (2.6-4.7) 2.9 mg/dL (2.6-4.7) Magnesium Level 2.7 mg/dL (1.8-2.4) 2.6 mg/dL (1.8-2.4) 2.5 mg/dL (1.8-2.4) Total Bilirubin 10.4 mg/dL (0.2-1.0) 10.0 mg/dL (0.2-1.0) Aspartate Amino Transf (AST/SGOT) 597 U/L (15-37) 545 U/L (15-37) Alanine Aminotransferase (ALT/SGPT) 1394 U/L (16-63) 1285 U/L (16-63) Alkaline Phosphatase 113 U/L (46-116) 111 U/L (46-116) Total Protein 4.8 g/dL (6.4-8.2) 4.7 g/dL (6.4-8.2) Albumin 1.9 g/dL (3.4-5.0) 1.8 g/dL (3.4-5.0) Albumin/Globulin Ratio 0.7 (1.0-1.7) 0.6 (1.0-1.7) Test 09/16/19 04:30 09/16/19 08:00 09/16/19 11:35 White Blood Count 22.1 x10^3/uL (4.0-11.0) 21.3 x10^3/uL (4.0-11.0) Red Blood Count 4.04 x10^6/uL (4.30-5.70) 4.05 x10^6/uL (4.30-5.70) Hemoglobin 9.5 g/dL (13.0-17.5) 9.5 g/dL (13.0-17.5) Hematocrit 29.6 % (39.0-53.0) 29.7 % (39.0-53.0) Mean Corpuscular Volume 73 fL (79-100) 73 fL (79-100) Mean Corpuscular Hemoglobin 24 pg (25-35) 23 pg (25-35) Mean Corpuscular Hemoglobin Concent 32 g/dL (31-37) 32 g/dL (31-37) Red Cell Distribution Width 18.1 % (11.5-14.5) 18.5 % (11.5-14.5) Platelet Count 29 x10^3/uL (140-400) 32 x10^3/uL (140-400) Neutrophils (%) (Auto) 96 % (31-73) 97 % (31-73) Lymphocytes (%) (Auto) 2 % (24-48) 1 % (24-48) Monocytes (%) (Auto) 1 % (0-9) 1 % (0-9) Eosinophils (%) (Auto) 0 % (0-3) 0 % (0-3) Basophils (%) (Auto) 1 % (0-3) 1 % (0-3) Neutrophils # (Auto) 21.2 x10^3/uL (1.8-7.7) 20.5 x10^3/uL (1.8-7.7) Lymphocytes # (Auto) 0.4 x10^3/uL (1.0-4.8) 0.3 x10^3/uL (1.0-4.8) Monocytes # (Auto) 0.3 x10^3/uL (0.0-1.1) 0.3 x10^3/uL (0.0-1.1) Eosinophils # (Auto) 0.0 x10^3/uL (0.0-0.7) 0.0 x10^3/uL (0.0-0.7) Basophils # (Auto) 0.2 x10^3/uL (0.0-0.2) 0.2 x10^3/uL (0.0-0.2) Prothrombin Time 26.1 SEC (11.7-14.0) 25.4 SEC (11.7-14.0) Prothromb Time International Ratio 2.4 (0.8-1.1) 2.3 (0.8-1.1) Sodium Level 142 mmol/L (136-145) 143 mmol/L (136-145) Potassium Level 4.6 mmol/L (3.5-5.1) 4.7 mmol/L (3.5-5.1) Chloride Level 108 mmol/L (98-107) 109 mmol/L (98-107) Carbon Dioxide Level 24 mmol/L (21-32) 25 mmol/L (21-32) Anion Gap 10 (6-14) 9 (6-14) Blood Urea Nitrogen 39 mg/dL (8-26) 38 mg/dL (8-26) Creatinine 1.7 mg/dL (0.7-1.3) 1.6 mg/dL (0.7-1.3) Estimated GFR (Cockcroft-Gault) 39.2 42.0 BUN/Creatinine Ratio 23 (6-20) 24 (6-20) Glucose Level 228 mg/dL (70-99) 226 mg/dL (70-99) Calcium Level 6.8 mg/dL (8.5-10.1) 7.1 mg/dL (8.5-10.1) Phosphorus Level 2.8 mg/dL (2.6-4.7) 3.5 mg/dL (2.6-4.7) Magnesium Level 2.5 mg/dL (1.8-2.4) 2.6 mg/dL (1.8-2.4) Total Bilirubin 9.5 mg/dL (0.2-1.0) 10.1 mg/dL (0.2-1.0) Aspartate Amino Transf (AST/SGOT) 432 U/L (15-37) 375 U/L (15-37) Alanine Aminotransferase (ALT/SGPT) 1068 U/L (16-63) 946 U/L (16-63) Alkaline Phosphatase 103 U/L (46-116) 104 U/L (46-116) Total Protein 4.7 g/dL (6.4-8.2) 4.6 g/dL (6.4-8.2) Albumin 1.7 g/dL (3.4-5.0) 1.7 g/dL (3.4-5.0) Albumin/Globulin Ratio 0.6 (1.0-1.7) 0.6 (1.0-1.7) O2 Saturation 93 % (92-99) Arterial Blood pH 7.50 (7.35-7.45) Arterial Blood pCO2 at Patient Temp 30 mmHg (35-46) Arterial Blood pO2 at Patient Temp 72 mmHg (65-108) Arterial Blood HCO3 23 mmol/L (21-28) Arterial Blood Base Excess 0 mmol/L (-3-3) FiO2 40 Activated Partial Thromboplast Time 34 SEC (24-38) Fibrinogen 124 mg/dL (200-440) Laboratory Tests Test 09/15/19 15:25 09/15/19 17:40 09/15/19 23:59 09/16/19 04:30 Lactic Acid Level 2.5 mmol/L (0.4-2.0) Sodium Level 140 mmol/L (136-145) 139 mmol/L (136-145) 142 mmol/L (136-145) Potassium Level 4.6 mmol/L (3.5-5.1) 4.6 mmol/L (3.5-5.1) 4.6 mmol/L (3.5-5.1) Chloride Level 107 mmol/L (98-107) 108 mmol/L (98-107) 108 mmol/L (98-107) Carbon Dioxide Level 24 mmol/L (21-32) 25 mmol/L (21-32) 24 mmol/L (21-32) Anion Gap 9 (6-14) 6 (6-14) 10 (6-14) Blood Urea Nitrogen 35 mg/dL (8-26) 39 mg/dL (8-26) Creatinine 1.5 mg/dL (0.7-1.3) 1.7 mg/dL (0.7-1.3) Estimated GFR (Cockcroft-Gault) 45.3 39.2 BUN/Creatinine Ratio 23 (6-20) 23 (6-20) Glucose Level 237 mg/dL (70-99) 228 mg/dL (70-99) Calcium Level 7.0 mg/dL (8.5-10.1) 6.8 mg/dL (8.5-10.1) Phosphorus Level 2.8 mg/dL (2.6-4.7) 2.9 mg/dL (2.6-4.7) 2.8 mg/dL (2.6-4.7) Magnesium Level 2.6 mg/dL (1.8-2.4) 2.5 mg/dL (1.8-2.4) 2.5 mg/dL (1.8-2.4) Total Bilirubin 10.0 mg/dL (0.2-1.0) 9.5 mg/dL (0.2-1.0) Aspartate Amino Transf (AST/SGOT) 545 U/L (15-37) 432 U/L (15-37) Alanine Aminotransferase (ALT/SGPT) 1285 U/L (16-63) 1068 U/L (16-63) Alkaline Phosphatase 111 U/L (46-116) 103 U/L (46-116) Total Protein 4.7 g/dL (6.4-8.2) 4.7 g/dL (6.4-8.2) Albumin 1.8 g/dL (3.4-5.0) 1.7 g/dL (3.4-5.0) Albumin/Globulin Ratio 0.6 (1.0-1.7) 0.6 (1.0-1.7) White Blood Count 22.1 x10^3/uL (4.0-11.0) Red Blood Count 4.04 x10^6/uL (4.30-5.70) Hemoglobin 9.5 g/dL (13.0-17.5) Hematocrit 29.6 % (39.0-53.0) Mean Corpuscular Volume 73 fL (79-100) Mean Corpuscular Hemoglobin 24 pg (25-35) Mean Corpuscular Hemoglobin Concent 32 g/dL (31-37) Red Cell Distribution Width 18.1 % (11.5-14.5) Platelet Count 29 x10^3/uL (140-400) Neutrophils (%) (Auto) 96 % (31-73) Lymphocytes (%) (Auto) 2 % (24-48) Monocytes (%) (Auto) 1 % (0-9) Eosinophils (%) (Auto) 0 % (0-3) Basophils (%) (Auto) 1 % (0-3) Neutrophils # (Auto) 21.2 x10^3/uL (1.8-7.7) Lymphocytes # (Auto) 0.4 x10^3/uL (1.0-4.8) Monocytes # (Auto) 0.3 x10^3/uL (0.0-1.1) Eosinophils # (Auto) 0.0 x10^3/uL (0.0-0.7) Basophils # (Auto) 0.2 x10^3/uL (0.0-0.2) Prothrombin Time 26.1 SEC (11.7-14.0) Prothromb Time International Ratio 2.4 (0.8-1.1) Test 09/16/19 08:00 09/16/19 11:35 O2 Saturation 93 % (92-99) Arterial Blood pH 7.50 (7.35-7.45) Arterial Blood pCO2 at Patient Temp 30 mmHg (35-46) Arterial Blood pO2 at Patient Temp 72 mmHg (65-108) Arterial Blood HCO3 23 mmol/L (21-28) Arterial Blood Base Excess 0 mmol/L (-3-3) FiO2 40 White Blood Count 21.3 x10^3/uL (4.0-11.0) Red Blood Count 4.05 x10^6/uL (4.30-5.70) Hemoglobin 9.5 g/dL (13.0-17.5) Hematocrit 29.7 % (39.0-53.0) Mean Corpuscular Volume 73 fL (79-100) Mean Corpuscular Hemoglobin 23 pg (25-35) Mean Corpuscular Hemoglobin Concent 32 g/dL (31-37) Red Cell Distribution Width 18.5 % (11.5-14.5) Platelet Count 32 x10^3/uL (140-400) Neutrophils (%) (Auto) 97 % (31-73) Lymphocytes (%) (Auto) 1 % (24-48) Monocytes (%) (Auto) 1 % (0-9) Eosinophils (%) (Auto) 0 % (0-3) Basophils (%) (Auto) 1 % (0-3) Neutrophils # (Auto) 20.5 x10^3/uL (1.8-7.7) Lymphocytes # (Auto) 0.3 x10^3/uL (1.0-4.8) Monocytes # (Auto) 0.3 x10^3/uL (0.0-1.1) Eosinophils # (Auto) 0.0 x10^3/uL (0.0-0.7) Basophils # (Auto) 0.2 x10^3/uL (0.0-0.2) Prothrombin Time 25.4 SEC (11.7-14.0) Prothromb Time International Ratio 2.3 (0.8-1.1) Activated Partial Thromboplast Time 34 SEC (24-38) Fibrinogen 124 mg/dL (200-440) Sodium Level 143 mmol/L (136-145) Potassium Level 4.7 mmol/L (3.5-5.1) Chloride Level 109 mmol/L (98-107) Carbon Dioxide Level 25 mmol/L (21-32) Anion Gap 9 (6-14) Blood Urea Nitrogen 38 mg/dL (8-26) Creatinine 1.6 mg/dL (0.7-1.3) Estimated GFR (Cockcroft-Gault) 42.0 BUN/Creatinine Ratio 24 (6-20) Glucose Level 226 mg/dL (70-99) Calcium Level 7.1 mg/dL (8.5-10.1) Phosphorus Level 3.5 mg/dL (2.6-4.7) Magnesium Level 2.6 mg/dL (1.8-2.4) Total Bilirubin 10.1 mg/dL (0.2-1.0) Aspartate Amino Transf (AST/SGOT) 375 U/L (15-37) Alanine Aminotransferase (ALT/SGPT) 946 U/L (16-63) Alkaline Phosphatase 104 U/L (46-116) Total Protein 4.6 g/dL (6.4-8.2) Albumin 1.7 g/dL (3.4-5.0) Albumin/Globulin Ratio 0.6 (1.0-1.7) LAST VITALS Vital Signs Date Time Temp Pulse Resp B/P (MAP) Pulse Ox O2 Delivery O2 Flow Rate FiO2 09/16/19 14:00 75 30 120/56 (77) 100 Ventilator 09/16/19 12:00 97.3 97.3 09/15/19 07:57 15.0 TIMUR LEE MD Sep 16, 2019 14:43
[2019-09-16 16:17] LABS: HEMATOCRIT 28.9 % (39.0-53.0); HEMOGLOBIN 9.4 g/dL (13.0-17.5); RED BLOOD COUNT 3.92 x10^6/uL (4.30-5.70); RED CELL DISTRIBUTION WIDTH 18.3 % (11.5-14.5)
[2019-09-16 16:29] LABS: ALBUMIN 1.6 g/dL (3.4-5.0); ALBUMIN/GLOBULIN RATIO 0.6 (1.0-1.7); CALCIUM 6.9 mg/dL (8.5-10.1); CREATININE 1.4 mg/dL (0.7-1.3); MAGNESIUM 2.5 mg/dL (1.8-2.4); PHOSPHORUS 3.6 mg/dL (2.6-4.7); TOTAL PROTEIN 4.5 g/dL (6.4-8.2)
--- NOTE | 2019-09-16 18:59 | PDOC ---
SUBJECTIVE ROS Intubated, On Vasopressin OBJECTIVE Vital Signs Vital Signs Date Time Temp Pulse Resp B/P (MAP) Pulse Ox O2 Delivery O2 Flow Rate FiO2 09/16/19 18:00 82 20 130/60 (83) 100 Ventilator 09/16/19 16:00 97.3 97.3 09/15/19 07:57 15.0 I & 0 Intake and Output 09/16/19 06:59 Intake Total 2122 ml Output Total 400 ml Balance 1722 ml IV Total 664 ml Tube Feeding 863 ml Other 595 ml Output Urine Total 0 ml Gastric Drainage Total 400 ml PHYSICAL EXAM Physical Exam Physical Exam GENERAL: orally intubated on vent HEENT: Both pupils are round and reacting. Orally intubated NECK: Supple, LUNGS: Clear. HEART: S1, S2 regular. ABDOMEN: Soft, EXTREMITIES: No edema, cyanosis. SKIN: Unremarkable. NEUROLOGIC: intubated gould + DIAGNOSIS/ASSESSMENT Assessment & Plan PEDRO- ATN due to Sepsis , Anuric On CRRT since 09/11 , tolerating well,continue as ordered ,[employer] UF as tolerated , Geovanny RN at bedside Sepsis - per ID Hyperkalemia- resolved Metabolic acidosis- Normal Bicarb, On CRRT Hypotension- On Vasopressin Elevated LFT's Ac Hypoxic Resp failure- Intubated /MV Abnormal CT chest revealing bilateral pulmonary infiltrates. Pneumonia Possible interstitial lung disease/pulmonary fibrosis. History of rheumatoid arthritis. Atrial fibrillation with rapid ventricular response. Cardioverted Discussed with family at bedside COMMENT/RELEVANT DATA Meds Current Medications Medications (Trade) Dose Ordered Sig/Veena Start Time Stop Time Status Last Admin Dose Admin Albuterol Sulfate (Ventolin Neb Soln) 2.5 mg RTQID 09/10/19 08:00 09/16/19 16:33 2.5 MG Amiodarone HCl 450 mg/Dextrose 259 ml @ 17 mls/hr CONT PRN 09/10/19 09:00 09/11/19 02:33 17 MLS/HR Azithromycin (Zithromax) 250 mg DAILY 09/10/19 09:00 09/10/19 13:35 DC 09/10/19 08:38 250 MG Bisacodyl (Dulcolax Supp) 10 mg PRN DAILY PRN 09/10/19 10:00 09/10/19 10:00 10 MG Calcium Chloride 12.5 meq/ Bicarbonate Dialysis Soln w/ out KCl 5,008.9286 ml @ 1,000 mls/hr Q5H1M 09/12/19 13:00 09/12/19 12:18 DC Ceftriaxone Sodium (Rocephin) 1 gm Q24H 09/10/19 12:00 09/10/19 13:35 DC 09/10/19 12:55 1 GM Daptomycin 320 mg/ Sodium Chloride 50 ml @ 100 mls/hr Q24H 09/13/19 08:00 09/16/19 08:17 100 MLS/HR Diltiazem HCl 125 mg/Dextrose 125 ml @ 0 mls/hr CONT PRN 09/10/19 06:30 09/11/19 05:40 10 MLS/HR Dutasteride (Avodart) 0.5 mg DAILY 09/10/19 09:00 09/15/19 08:09 0.5 MG Epinephrine HCl 4 mg/Sodium Chloride 254 ml @ 28.061 mls/ hr CONT PRN 09/11/19 15:45 09/13/19 15:56 DC Fentanyl Citrate (Fentanyl 600 Mcg/30 ml P[employer]IC BATTERY ASSEMBLER) 600 mcg STK-MED ONCE 09/11/19 11:28 09/12/19 15:46 DC Fluconazole/ Sodium Chloride 50 ml @ 100 mls/hr Q24H 09/16/19 08:15 09/16/19 08:14 DC Furosemide (Lasix) 40 mg 1X ONCE 09/10/19 15:45 09/10/19 15:46 DC 09/10/19 16:38 40 MG Influenza Virus Vaccine Quadrival (Afluria Quad 2019-20 (3yr Up) Syringe) 0.5 ml ONCE ONCE 09/11/19 09:00 09/11/19 09:01 DC Lactobacillus Rhamnosus (Culturelle) 1 cap BID 09/10/19 09:00 09/12/19 09:15 DC 09/11/19 21:16 1 CAP Levofloxacin/ Dextrose 100 ml @ 100 mls/hr Q24H 09/12/19 09:00 09/16/19 08:19 100 MLS/HR Lidocaine HCl (Buffered Lidocaine 1%) 3 ml 1X ONCE 09/11/19 17:15 09/11/19 17:16 DC 09/11/19 17:14 3 ML Lidocaine HCl (Lta Kit) 4 ml STK-MED ONCE 09/10/19 16:00 09/12/19 09:29 DC Lorazepam (Ativan Inj) 0.5 mg 1X ONCE 09/10/19 11:45 09/10/19 11:47 DC 09/10/19 11:48 0.5 MG Meropenem 500 mg/ Sodium Chloride 50 ml @ 100 mls/hr Q12H 09/15/19 21:00 09/16/19 08:18 100 MLS/HR Methylprednisolone Sodium Succinate (SOLU-Medrol 40MG VIAL) 40 mg Q12HR 09/16/19 21:00 Midazolam HCl 100 ml @ 0 mls/hr CONT PRN 09/11/19 10:15 09/16/19 05:54 6 MLS/HR Morphine Sulfate (Morphine Sulfate) 4 mg PRN Q2HR PRN 09/10/19 21:15 09/11/19 20:31 4 MG Naproxen (Naprosyn) 500 mg PRN BID PRN 09/10/19 06:30 09/12/19 11:01 DC Norepinephrine Bitartrate 250 ml @ 13.81 mls/ hr CONT PRN 09/11/19 10:45 09/12/19 10:47 25 MLS/HR Pantoprazole Sodium (PROTONIX VIAL for IV PUSH) 40 mg DAILYAC 09/12/19 12:00 09/16/19 08:19 40 MG Phytonadione (Vitamin K Ampule) 10 mg 1X ONCE 09/16/19 08:45 09/16/19 08:46 UNV Phytonadione 1 mg/ Dextrose 50.1 ml @ 102 mls/hr 1X ONCE 09/12/19 17:00 09/12/19 17:29 DC 09/12/19 17:07 102 MLS/HR Piperacillin Sod/ Tazobactam Sod 3.375 gm/Sodium Chloride 50 ml @ 100 mls/hr 1X ONCE 09/13/19 22:00 09/13/19 22:29 DC 09/13/19 22:27 100 MLS/HR Potassium Chloride 10 meq/ Bicarbonate Dialysis Soln w/ out KCl 5,005 ml @ 1,000 mls/hr Q5H1M 09/12/19 13:00 09/13/19 08:36 DC 09/13/19 06:05 1,000 MLS/HR Potassium Chloride 20 meq/ Bicarbonate Dialysis Soln w/ out KCl 5,010 ml @ 1,000 mls/hr Q5H1M 09/15/19 13:45 09/16/19 17:44 1,000 MLS/HR Propofol 100 ml @ 0 mls/hr CONT PRN 09/11/19 10:15 09/13/19 15:56 DC Sodium Bicarbonate 100 meq/Dextrose 1,100 ml @ 75 mls/hr [id number] 09/11/19 09:00 09/13/19 15:56 DC 09/13/19 06:03 75 MLS/HR Sodium Bicarbonate (Sodium Bicarb Adult 8.4% Syr) 100 meq 1X ONCE 09/11/19 11:15 09/11/19 11:16 DC 09/11/19 11:28 100 MEQ Sodium Chloride 500 ml @ 500 mls/hr 1X ONCE 09/11/19 21:15 09/11/19 22:14 DC 09/11/19 21:21 500 MLS/HR Sodium Chloride (Normal Saline Flush) 10 ml QSHIFT PRN 09/10/19 07:00 Succinylcholine Chloride (Anectine) 200 mg STK-MED ONCE 09/11/19 10:57 09/11/19 10:57 DC Vancomycin HCl (Vanco Per Pharmacy) 1 each PRN DAILY PRN 09/10/19 14:00 09/11/19 07:59 DC 09/10/19 16:55 1 EACH Vancomycin HCl (Vancomycin Trough Level) 1 each 1X ONCE 09/12/19 16:00 09/11/19 08:01 DC Vancomycin HCl 1.5 gm/Sodium Chloride 500 ml @ 250 mls/hr 1X ONCE 09/10/19 14:00 09/10/19 15:59 DC 09/10/19 16:39 250 MLS/HR Vancomycin HCl 1 gm/Sodium Chloride 250 ml @ 250 mls/hr Q24H 09/11/19 16:30 09/11/19 07:59 DC Vasopressin 40 unit/Dextrose 102 ml @ 6 mls/hr CONT PRN 09/11/19 11:30 09/16/19 05:54 6 MLS/HR Lab Laboratory Tests Test 09/15/19 23:59 09/16/19 04:30 09/16/19 08:00 09/16/19 11:35 Sodium Level 139 mmol/L (136-145) 142 mmol/L (136-145) 143 mmol/L (136-145) Potassium Level 4.6 mmol/L (3.5-5.1) 4.6 mmol/L (3.5-5.1) 4.7 mmol/L (3.5-5.1) Chloride Level 108 mmol/L (98-107) 108 mmol/L (98-107) 109 mmol/L (98-107) Carbon Dioxide Level 25 mmol/L (21-32) 24 mmol/L (21-32) 25 mmol/L (21-32) Anion Gap 6 (6-14) 10 (6-14) 9 (6-14) Phosphorus Level 2.9 mg/dL (2.6-4.7) 2.8 mg/dL (2.6-4.7) 3.5 mg/dL (2.6-4.7) Magnesium Level 2.5 mg/dL (1.8-2.4) 2.5 mg/dL (1.8-2.4) 2.6 mg/dL (1.8-2.4) White Blood Count 22.1 x10^3/uL (4.0-11.0) 21.3 x10^3/uL (4.0-11.0) Red Blood Count 4.04 x10^6/uL (4.30-5.70) 4.05 x10^6/uL (4.30-5.70) Hemoglobin 9.5 g/dL (13.0-17.5) 9.5 g/dL (13.0-17.5) Hematocrit 29.6 % (39.0-53.0) 29.7 % (39.0-53.0) Mean Corpuscular Volume 73 fL (79-100) 73 fL (79-100) Mean Corpuscular Hemoglobin 24 pg (25-35) 23 pg (25-35) Mean Corpuscular Hemoglobin Concent 32 g/dL (31-37) 32 g/dL (31-37) Red Cell Distribution Width 18.1 % (11.5-14.5) 18.5 % (11.5-14.5) Platelet Count 29 x10^3/uL (140-400) 32 x10^3/uL (140-400) Neutrophils (%) (Auto) 96 % (31-73) 97 % (31-73) Lymphocytes (%) (Auto) 2 % (24-48) 1 % (24-48) Monocytes (%) (Auto) 1 % (0-9) 1 % (0-9) Eosinophils (%) (Auto) 0 % (0-3) 0 % (0-3) Basophils (%) (Auto) 1 % (0-3) 1 % (0-3) Neutrophils # (Auto) 21.2 x10^3/uL (1.8-7.7) 20.5 x10^3/uL (1.8-7.7) Lymphocytes # (Auto) 0.4 x10^3/uL (1.0-4.8) 0.3 x10^3/uL (1.0-4.8) Monocytes # (Auto) 0.3 x10^3/uL (0.0-1.1) 0.3 x10^3/uL (0.0-1.1) Eosinophils # (Auto) 0.0 x10^3/uL (0.0-0.7) 0.0 x10^3/uL (0.0-0.7) Basophils # (Auto) 0.2 x10^3/uL (0.0-0.2) 0.2 x10^3/uL (0.0-0.2) Prothrombin Time 26.1 SEC (11.7-14.0) 25.4 SEC (11.7-14.0) Prothromb Time International Ratio 2.4 (0.8-1.1) 2.3 (0.8-1.1) Blood Urea Nitrogen 39 mg/dL (8-26) 38 mg/dL (8-26) Creatinine 1.7 mg/dL (0.7-1.3) 1.6 mg/dL (0.7-1.3) Estimated GFR (Cockcroft-Gault) 39.2 42.0 BUN/Creatinine Ratio 23 (6-20) 24 (6-20) Glucose Level 228 mg/dL (70-99) 226 mg/dL (70-99) Calcium Level 6.8 mg/dL (8.5-10.1) 7.1 mg/dL (8.5-10.1) Total Bilirubin 9.5 mg/dL (0.2-1.0) 10.1 mg/dL (0.2-1.0) Aspartate Amino Transf (AST/SGOT) 432 U/L (15-37) 375 U/L (15-37) Alanine Aminotransferase (ALT/SGPT) 1068 U/L (16-63) 946 U/L (16-63) Alkaline Phosphatase 103 U/L (46-116) 104 U/L (46-116) Total Protein 4.7 g/dL (6.4-8.2) 4.6 g/dL (6.4-8.2) Albumin 1.7 g/dL (3.4-5.0) 1.7 g/dL (3.4-5.0) Albumin/Globulin Ratio 0.6 (1.0-1.7) 0.6 (1.0-1.7) O2 Saturation 93 % (92-99) Arterial Blood pH 7.50 (7.35-7.45) Arterial Blood pCO2 at Patient Temp 30 mmHg (35-46) Arterial Blood pO2 at Patient Temp 72 mmHg (65-108) Arterial Blood HCO3 23 mmol/L (21-28) Arterial Blood Base Excess 0 mmol/L (-3-3) FiO2 40 Activated Partial Thromboplast Time 34 SEC (24-38) Fibrinogen 124 mg/dL (200-440) Test 09/16/19 16:05 White Blood Count 20.0 x10^3/uL (4.0-11.0) Red Blood Count 3.92 x10^6/uL (4.30-5.70) Hemoglobin 9.4 g/dL (13.0-17.5) Hematocrit 28.9 % (39.0-53.0) Mean Corpuscular Volume 74 fL (79-100) Mean Corpuscular Hemoglobin 24 pg (25-35) Mean Corpuscular Hemoglobin Concent 32 g/dL (31-37) Red Cell Distribution Width 18.3 % (11.5-14.5) Platelet Count 27 x10^3/uL (140-400) Sodium Level 143 mmol/L (136-145) Potassium Level 5.0 mmol/L (3.5-5.1) Chloride Level 109 mmol/L (98-107) Carbon Dioxide Level 23 mmol/L (21-32) Anion Gap 11 (6-14) Blood Urea Nitrogen 36 mg/dL (8-26) Creatinine 1.4 mg/dL (0.7-1.3) Estimated GFR (Cockcroft-Gault) 49.0 BUN/Creatinine Ratio 26 (6-20) Glucose Level 212 mg/dL (70-99) Calcium Level 6.9 mg/dL (8.5-10.1) Phosphorus Level 3.6 mg/dL (2.6-4.7) Magnesium Level 2.5 mg/dL (1.8-2.4) Total Bilirubin 10.0 mg/dL (0.2-1.0) Aspartate Amino Transf (AST/SGOT) 341 U/L (15-37) Alanine Aminotransferase (ALT/SGPT) 888 U/L (16-63) Alkaline Phosphatase 98 U/L (46-116) Total Protein 4.5 g/dL (6.4-8.2) Albumin 1.6 g/dL (3.4-5.0) Albumin/Globulin Ratio 0.6 (1.0-1.7) Results All relevant outside records, renal labs, imaging studies, telemetry/EKG's were reviewed. JAMEL LOPEZ MD Sep 16, 2019 18:59
[2019-09-16 23:05] LABS: CREATININE 1.6 mg/dL (0.7-1.3); POTASSIUM 4.9 mmol/L (3.5-5.1)
[2019-09-16 23:11] LABS: ALBUMIN 1.6 g/dL (3.4-5.0); ALBUMIN/GLOBULIN RATIO 0.5 (1.0-1.7); MAGNESIUM 2.6 mg/dL (1.8-2.4); PHOSPHORUS 4.1 mg/dL (2.6-4.7); TOTAL BILIRUBIN 10.4 mg/dL (0.2-1.0); TOTAL PROTEIN 4.6 g/dL (6.4-8.2)
[2019-09-17] VITALS (27 sets, daily range): BP systolic 83–135; BP diastolic 40–70
[2019-09-17] MEDS: POTASSIUM CHLORIDE 20 MEQ in DIALYSIS SOLUTION BGK 0/2.5 5,000 ML IV SCH ×3 (02:18→02:19)
[2019-09-17 06:26] LABS: BASO # 0.1 x10^3/uL (0.0-0.2); BASO % 1 % (0-3); EOS % 0 % (0-3); HEMATOCRIT 31.9 % (39.0-53.0); LYMPH # 0.2 x10^3/uL (1.0-4.8); LYMPH % 1 % (24-48); MEAN CORPUSCULAR HEMOGLOBIN 23 pg (25-35); MEAN CORPUSCULAR HGB CONC 32 g/dL (31-37); MEAN CORPUSCULAR VOLUME 75 fL (79-100); MONO # 0.1 x10^3/uL (0.0-1.1); MONO % 0 % (0-9); NEUT # 16.9 x10^3/uL (1.8-7.7); NEUT % 98 % (31-73); PLATELET COUNT 26 x10^3/uL (140-400); RED BLOOD COUNT 4.28 x10^6/uL (4.30-5.70); RED CELL DISTRIBUTION WIDTH 19.5 % (11.5-14.5); WHITE BLOOD COUNT 17.4 x10^3/uL (4.0-11.0)
[2019-09-17 06:50] LABS: ALBUMIN 1.7 g/dL (3.4-5.0); ALBUMIN/GLOBULIN RATIO 0.5 (1.0-1.7); CALCIUM 7.3 mg/dL (8.5-10.1); CREATININE 1.4 mg/dL (0.7-1.3); MAGNESIUM 2.9 mg/dL (1.8-2.4); PHOSPHORUS 4.2 mg/dL (2.6-4.7); POTASSIUM 5.2 mmol/L (3.5-5.1); TOTAL BILIRUBIN 11.7 mg/dL (0.2-1.0); TOTAL PROTEIN 5.2 g/dL (6.4-8.2)
[2019-09-17] MEDS: PANTOPRAZOLE IV PUSH 40 MG VIAL. IVP SCH (07:28)
[2019-09-17] MEDS ORDERED: POTASSIUM CHLORIDE 15 MEQ in DIALYSIS SOLUTION BGK 0/2.5 5,000 ML IV SCH ×6 (07:45)
[2019-09-17] MEDS: ALBUTEROL SULFATE 2.5 MG/3 ML NEBU. NEB SCH ×4 (07:45→19:12)
--- NOTE | 2019-09-17 08:08 | PDOC ---
Infectious Disease Note Subjective: Subjective sedated on vent on pressors undergoing CRRT intermitently hypotensive Fio2 40% ROS: ROS unable to obtain Vital Signs: Vital Signs Vital Signs Date Time Temp Pulse Resp B/P (MAP) Pulse Ox O2 Delivery O2 Flow Rate FiO2 09/17/19 07:00 84 20 106/48 (67) 98 Ventilator 09/17/19 04:00 95.7 95.7 Physical Exam: PHYSICAL EXAM GENERAL: orally intubated on vent HEENT: icteric, ETT +,no lesion in the mouth. NECK: Supple, RT IJ and central line + looks clean LUNGS: Clear anteriorly HEART: S1, S2 regular. ABDOMEN: Soft, nontender, no organomegaly. EXTREMITIES: +edema, no cyanosis. SKIN: Unremarkable. NEUROLOGIC: sedated intubated Medications: Inpatient Meds: Current Medications Medications (Trade) Dose Ordered Sig/Veena Start Time Stop Time Status Last Admin Dose Admin Albuterol Sulfate (Ventolin Neb Soln) 2.5 mg RTQID 09/10/19 08:00 09/17/19 07:45 2.5 MG Amiodarone HCl 450 mg/Dextrose 259 ml @ 17 mls/hr CONT PRN 09/10/19 09:00 09/11/19 02:33 17 MLS/HR Azithromycin (Zithromax) 250 mg DAILY 09/10/19 09:00 09/10/19 13:35 DC 09/10/19 08:38 250 MG Bisacodyl (Dulcolax Supp) 10 mg PRN DAILY PRN 09/10/19 10:00 09/10/19 10:00 10 MG Calcium Chloride 12.5 meq/ Bicarbonate Dialysis Soln w/ out KCl 5,008.9286 ml @ 1,000 mls/hr Q5H1M 09/12/19 13:00 09/12/19 12:18 DC Ceftriaxone Sodium (Rocephin) 1 gm Q24H 09/10/19 12:00 09/10/19 13:35 DC 09/10/19 12:55 1 GM Daptomycin 320 mg/ Sodium Chloride 50 ml @ 100 mls/hr Q24H 09/13/19 08:00 09/16/19 08:17 100 MLS/HR Diltiazem HCl 125 mg/Dextrose 125 ml @ 0 mls/hr CONT PRN 09/10/19 06:30 10/15/19 05:40 10 MLS/HR Dutasteride (Avodart) 0.5 mg DAILY 09/10/19 09:00 09/15/19 08:09 0.5 MG Epinephrine HCl 4 mg/Sodium Chloride 254 ml @ 28.061 mls/ hr CONT PRN 09/11/19 15:45 09/13/19 15:56 DC Fentanyl Citrate (Fentanyl 600 Mcg/30 ml OPERATING ROOM TECHNOLOGIST) 600 mcg STK-MED ONCE 09/11/19 11:28 09/12/19 15:46 DC Fluconazole/ Sodium Chloride 50 ml @ 100 mls/hr Q24H 09/16/19 08:15 09/16/19 08:14 DC Furosemide (Lasix) 40 mg 1X ONCE 09/10/19 15:45 09/10/19 15:46 DC 09/10/19 16:38 40 MG Influenza Virus Vaccine Quadrival (Afluria Quad 2019-20 (3yr Up) Syringe) 0.5 ml ONCE ONCE 09/11/19 09:00 09/11/19 09:01 DC Lactobacillus Rhamnosus (Culturelle) 1 cap BID 09/10/19 09:00 09/12/19 09:15 DC 09/11/19 21:16 1 CAP Levofloxacin/ Dextrose 100 ml @ 100 mls/hr Q24H 09/12/19 09:00 09/16/19 08:19 100 MLS/HR Lidocaine HCl (Buffered Lidocaine 1%) 3 ml 1X ONCE 09/11/19 17:15 09/11/19 17:16 DC 09/11/19 17:14 3 ML Lidocaine HCl (Lta Kit) 4 ml STK-MED ONCE 09/10/19 16:00 09/12/19 09:29 DC Lorazepam (Ativan Inj) 0.5 mg 1X ONCE 09/10/19 11:45 09/10/19 11:47 DC 09/10/19 11:48 0.5 MG Meropenem 500 mg/ Sodium Chloride 50 ml @ 100 mls/hr Q12H 09/15/19 21:00 09/16/19 21:10 100 MLS/HR Methylprednisolone Sodium Succinate (SOLU-Medrol 40MG VIAL) 40 mg Q12HR 09/16/19 21:00 09/16/19 21:10 40 MG Midazolam HCl 100 ml @ 0 mls/hr CONT PRN 09/11/19 10:15 09/16/19 22:53 5 MLS/HR Morphine Sulfate (Morphine Sulfate) 4 mg PRN Q2HR PRN 09/10/19 21:15 09/11/19 20:31 4 MG Naproxen (Naprosyn) 500 mg PRN BID PRN 09/10/19 06:30 09/12/19 11:01 DC Norepinephrine Bitartrate 250 ml @ 13.81 mls/ hr CONT PRN 09/11/19 10:45 09/12/19 10:47 25 MLS/HR Pantoprazole Sodium (PROTONIX VIAL for IV PUSH) 40 mg DAILYAC 09/12/19 12:00 09/17/19 07:28 40 MG Phytonadione (Vitamin K Ampule) 10 mg 1X ONCE 09/16/19 08:45 09/16/19 08:46 UNV Phytonadione 1 mg/ Dextrose 50.1 ml @ 102 mls/hr 1X ONCE 09/12/19 17:00 09/12/19 17:29 DC 09/12/19 17:07 102 MLS/HR Piperacillin Sod/ Tazobactam Sod 3.375 gm/Sodium Chloride 50 ml @ 100 mls/hr 1X ONCE 09/13/19 22:00 09/13/19 22:29 DC 09/13/19 22:27 100 MLS/HR Potassium Chloride 10 meq/ Bicarbonate Dialysis Soln w/ out KCl 5,005 ml @ 1,000 mls/hr Q5H1M 09/12/19 13:00 09/13/19 08:36 DC 09/13/19 06:05 1,000 MLS/HR Potassium Chloride 15 meq/ Bicarbonate Dialysis Soln w/ out KCl 5,007.5 ml @ 1,000 mls/ hr Q5H1M 09/17/19 07:45 Potassium Chloride 20 meq/ Bicarbonate Dialysis Soln w/ out KCl 5,010 ml @ 1,000 mls/hr Q5H1M 09/15/19 13:45 09/17/19 07:39 DC 09/17/19 02:18 1,000 MLS/HR Propofol 100 ml @ 0 mls/hr CONT PRN 09/11/19 10:15 09/13/19 15:56 DC Sodium Bicarbonate 100 meq/Dextrose 1,100 ml @ 75 mls/hr [id number] 09/11/19 09:00 09/13/19 15:56 DC 09/13/19 06:03 75 MLS/HR Sodium Bicarbonate (Sodium Bicarb Adult 8.4% Syr) 100 meq 1X ONCE 09/11/19 11:15 09/11/19 11:16 DC 09/11/19 11:28 100 MEQ Sodium Chloride 500 ml @ 500 mls/hr 1X ONCE 09/11/19 21:15 09/11/19 22:14 DC 09/11/19 21:21 500 MLS/HR Sodium Chloride (Normal Saline Flush) 10 ml QSHIFT PRN 09/10/19 07:00 Succinylcholine Chloride (Anectine) 200 mg STK-MED ONCE 09/11/19 10:57 09/11/19 10:57 DC Vancomycin HCl (Vanco Per Pharmacy) 1 each PRN DAILY PRN 09/10/19 14:00 09/11/19 07:59 DC 09/10/19 16:55 1 EACH Vancomycin HCl (Vancomycin Trough Level) 1 each 1X ONCE 09/12/19 16:00 09/11/19 08:01 DC Vancomycin HCl 1.5 gm/Sodium Chloride 500 ml @ 250 mls/hr 1X ONCE 09/10/19 14:00 09/10/19 15:59 DC 09/10/19 16:39 250 MLS/HR Vancomycin HCl 1 gm/Sodium Chloride 250 ml @ 250 mls/hr Q24H 09/11/19 16:30 09/11/19 07:59 DC Vasopressin 40 unit/Dextrose 102 ml @ 6 mls/hr CONT PRN 09/11/19 11:30 09/16/19 22:52 6 MLS/HR Labs: Lab Laboratory Tests Test 09/16/19 11:35 09/16/19 16:05 09/16/19 22:50 09/17/19 06:10 White Blood Count 21.3 x10^3/uL (4.0-11.0) 20.0 x10^3/uL (4.0-11.0) 17.4 x10^3/uL (4.0-11.0) Red Blood Count 4.05 x10^6/uL (4.30-5.70) 3.92 x10^6/uL (4.30-5.70) 4.28 x10^6/uL (4.30-5.70) Hemoglobin 9.5 g/dL (13.0-17.5) 9.4 g/dL (13.0-17.5) 10.0 g/dL (13.0-17.5) Hematocrit 29.7 % (39.0-53.0) 28.9 % (39.0-53.0) 31.9 % (39.0-53.0) Mean Corpuscular Volume 73 fL (79-100) 74 fL (79-100) 75 fL (79-100) Mean Corpuscular Hemoglobin 23 pg (25-35) 24 pg (25-35) 23 pg (25-35) Mean Corpuscular Hemoglobin Concent 32 g/dL (31-37) 32 g/dL (31-37) 32 g/dL (31-37) Red Cell Distribution Width 18.5 % (11.5-14.5) 18.3 % (11.5-14.5) 19.5 % (11.5-14.5) Platelet Count 32 x10^3/uL (140-400) 27 x10^3/uL (140-400) 26 x10^3/uL (140-400) Neutrophils (%) (Auto) 97 % (31-73) 98 % (31-73) Lymphocytes (%) (Auto) 1 % (24-48) 1 % (24-48) Monocytes (%) (Auto) 1 % (0-9) 0 % (0-9) Eosinophils (%) (Auto) 0 % (0-3) 0 % (0-3) Basophils (%) (Auto) 1 % (0-3) 1 % (0-3) Neutrophils # (Auto) 20.5 x10^3/uL (1.8-7.7) 16.9 x10^3/uL (1.8-7.7) Lymphocytes # (Auto) 0.3 x10^3/uL (1.0-4.8) 0.2 x10^3/uL (1.0-4.8) Monocytes # (Auto) 0.3 x10^3/uL (0.0-1.1) 0.1 x10^3/uL (0.0-1.1) Eosinophils # (Auto) 0.0 x10^3/uL (0.0-0.7) 0.0 x10^3/uL (0.0-0.7) Basophils # (Auto) 0.2 x10^3/uL (0.0-0.2) 0.1 x10^3/uL (0.0-0.2) Prothrombin Time 25.4 SEC (11.7-14.0) Prothromb Time International Ratio 2.3 (0.8-1.1) Activated Partial Thromboplast Time 34 SEC (24-38) Fibrinogen 124 mg/dL (200-440) Sodium Level 143 mmol/L (136-145) 143 mmol/L (136-145) 142 mmol/L (136-145) 142 mmol/L (136-145) Potassium Level 4.7 mmol/L (3.5-5.1) 5.0 mmol/L (3.5-5.1) 4.9 mmol/L (3.5-5.1) 5.2 mmol/L (3.5-5.1) Chloride Level 109 mmol/L (98-107) 109 mmol/L (98-107) 109 mmol/L (98-107) 107 mmol/L (98-107) Carbon Dioxide Level 25 mmol/L (21-32) 23 mmol/L (21-32) 24 mmol/L (21-32) 24 mmol/L (21-32) Anion Gap 9 (6-14) 11 (6-14) 9 (6-14) 11 (6-14) Blood Urea Nitrogen 38 mg/dL (8-26) 36 mg/dL (8-26) 42 mg/dL (8-26) 39 mg/dL (8-26) Creatinine 1.6 mg/dL (0.7-1.3) 1.4 mg/dL (0.7-1.3) 1.6 mg/dL (0.7-1.3) 1.4 mg/dL (0.7-1.3) Estimated GFR (Cockcroft-Gault) 42.0 49.0 42.0 49.0 BUN/Creatinine Ratio 24 (6-20) 26 (6-20) 26 (6-20) 28 (6-20) Glucose Level 226 mg/dL (70-99) 212 mg/dL (70-99) 228 mg/dL (70-99) 206 mg/dL (70-99) Calcium Level 7.1 mg/dL (8.5-10.1) 6.9 mg/dL (8.5-10.1) 7.0 mg/dL (8.5-10.1) 7.3 mg/dL (8.5-10.1) Phosphorus Level 3.5 mg/dL (2.6-4.7) 3.6 mg/dL (2.6-4.7) 4.1 mg/dL (2.6-4.7) 4.2 mg/dL (2.6-4.7) Magnesium Level 2.6 mg/dL (1.8-2.4) 2.5 mg/dL (1.8-2.4) 2.6 mg/dL (1.8-2.4) 2.9 mg/dL (1.8-2.4) Total Bilirubin 10.1 mg/dL (0.2-1.0) 10.0 mg/dL (0.2-1.0) 10.4 mg/dL (0.2-1.0) 11.7 mg/dL (0.2-1.0) Aspartate Amino Transf (AST/SGOT) 375 U/L (15-37) 341 U/L (15-37) 290 U/L (15-37) 287 U/L (15-37) Alanine Aminotransferase (ALT/SGPT) 946 U/L (16-63) 888 U/L (16-63) 825 U/L (16-63) 835 U/L (16-63) Alkaline Phosphatase 104 U/L (46-116) 98 U/L (46-116) 102 U/L (46-116) 114 U/L (46-116) Total Protein 4.6 g/dL (6.4-8.2) 4.5 g/dL (6.4-8.2) 4.6 g/dL (6.4-8.2) 5.2 g/dL (6.4-8.2) Albumin 1.7 g/dL (3.4-5.0) 1.6 g/dL (3.4-5.0) 1.6 g/dL (3.4-5.0) 1.7 g/dL (3.4-5.0) Albumin/Globulin Ratio 0.6 (1.0-1.7) 0.6 (1.0-1.7) 0.5 (1.0-1.7) 0.5 (1.0- 1.7) Micro reviewed bc neg throat c/s neg sputum neg Objective: Assessment: Pt with multiorgan failure 1. Respiratory failure. Pulmonary infiltrate. likely respiratory infection though w/u neg with acute respiratory distress syndrome.on empiric broad spectrum, sputum c/s neg 2. Leukocytosis.reactive 3 Acute kidney injury, multifactorial from hypotension on CRRT 4. 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 DIC 6 History of rheumatoid arthritis, had been on naproxen. 7 .A fib with RVR and Circulatory failure. 8. Thrombocytopenia from DIC Plan: Plan of Care cont merrem ( 09/15);was on zosyn, dc due to thrombocytopenia from dic cont empiric levaquin and dapto cont supportive care f/u c/s and labs f/u cmv and ebv serologies though clinically less likely less likely coccidiodes but with recent travel to [place] will obtain serologies,per pt had symptoms before they left for [place] Condition critical prognosis very poor D/W Nursing staff ENMANUEL GAN MD Sep 17, 2019 08:08
[2019-09-17] MEDS: MEROPENEM 500 MG in IV NORMAL SALINE 50ML 50 ML IV SCH ×2 (08:26→20:42)
[2019-09-17] MEDS: DAPTOmycin (GENERIC) IVPB 320 MG in IV NORMAL SALINE 50ML 50 ML IV SCH (08:26)
[2019-09-17] MEDS: methylPREDNISolone SOD SUCC PF 40 MG/ML VIAL. IV SCH ×2 (08:27→20:42)
[2019-09-17] MEDS: DUTASTERIDE 0.5 MG CAPSULE PO SCH (08:27)
--- NOTE | 2019-09-17 09:12 | PDOC ---
PULMONARY PROGRESS NOTES Subjective INTUBATED 09/11 BY ANESTHESIA on AC MODE UNDERGOING CRRT ON VASOPRESSIN Vitals Vital Signs Date Time Temp Pulse Resp B/P (MAP) Pulse Ox O2 Delivery O2 Flow Rate FiO2 09/17/19 09:00 81 20 110/56 (74) 98 Ventilator 09/17/19 08:04 15.0 09/17/19 08:00 98.8 98.8 HEENT: Other Lungs: Crackles Cardiovascular: S1, S2 Abdomen: Soft, Non-tender, Other (no mass) Extremities: Other (EDMA ) Skin: Warm Labs Laboratory Tests Test 09/15/19 11:45 09/15/19 15:25 09/15/19 17:40 09/15/19 23:59 White Blood Count 26.6 x10^3/uL (4.0-11.0) Red Blood Count 4.34 x10^6/uL (4.30-5.70) Hemoglobin 10.2 g/dL (13.0-17.5) Hematocrit 31.7 % (39.0-53.0) Mean Corpuscular Volume 73 fL (79-100) Mean Corpuscular Hemoglobin 24 pg (25-35) Mean Corpuscular Hemoglobin Concent 32 g/dL (31-37) Red Cell Distribution Width 18.3 % (11.5-14.5) Platelet Count 35 x10^3/uL (140-400) Prothrombin Time 27.7 SEC (11.7-14.0) Prothromb Time International Ratio 2.6 (0.8-1.1) Activated Partial Thromboplast Time 34 SEC (24-38) Fibrinogen 124 mg/dL (200-440) Sodium Level 137 mmol/L (136-145) 140 mmol/L (136-145) 139 mmol/L (136-145) Potassium Level 4.3 mmol/L (3.5-5.1) 4.6 mmol/L (3.5-5.1) 4.6 mmol/L (3.5-5.1) Chloride Level 106 mmol/L (98-107) 107 mmol/L (98-107) 108 mmol/L (98-107) Carbon Dioxide Level 26 mmol/L (21-32) 24 mmol/L (21-32) 25 mmol/L (21-32) Anion Gap 5 (6-14) 9 (6-14) 6 (6-14) Blood Urea Nitrogen 36 mg/dL (8-26) 35 mg/dL (8-26) Creatinine 1.6 mg/dL (0.7-1.3) 1.5 mg/dL (0.7-1.3) Estimated GFR (Cockcroft-Gault) 42.0 45.3 BUN/Creatinine Ratio 23 (6-20) 23 (6-20) Glucose Level 278 mg/dL (70-99) 237 mg/dL (70-99) Lactic Acid Level 2.6 mmol/L (0.4-2.0) 2.5 mmol/L (0.4-2.0) Calcium Level 7.2 mg/dL (8.5-10.1) 7.0 mg/dL (8.5-10.1) Phosphorus Level 2.9 mg/dL (2.6-4.7) 2.8 mg/dL (2.6-4.7) 2.9 mg/dL (2.6-4.7) Magnesium Level 2.7 mg/dL (1.8-2.4) 2.6 mg/dL (1.8-2.4) 2.5 mg/dL (1.8-2.4) Total Bilirubin 10.4 mg/dL (0.2-1.0) 10.0 mg/dL (0.2-1.0) Aspartate Amino Transf (AST/SGOT) 597 U/L (15-37) 545 U/L (15-37) Alanine Aminotransferase (ALT/SGPT) 1394 U/L (16-63) 1285 U/L (16-63) Alkaline Phosphatase 113 U/L (46-116) 111 U/L (46-116) Total Protein 4.8 g/dL (6.4-8.2) 4.7 g/dL (6.4-8.2) Albumin 1.9 g/dL (3.4-5.0) 1.8 g/dL (3.4-5.0) Albumin/Globulin Ratio 0.7 (1.0-1.7) 0.6 (1.0-1.7) Test 09/16/19 04:30 09/16/19 08:00 09/16/19 11:35 09/16/19 16:05 White Blood Count 22.1 x10^3/uL (4.0-11.0) 21.3 x10^3/uL (4.0-11.0) 20.0 x10^3/uL (4.0-11.0) Red Blood Count 4.04 x10^6/uL (4.30-5.70) 4.05 x10^6/uL (4.30-5.70) 3.92 x10^6/uL (4.30-5.70) Hemoglobin 9.5 g/dL (13.0-17.5) 9.5 g/dL (13.0-17.5) 9.4 g/dL (13.0-17.5) Hematocrit 29.6 % (39.0-53.0) 29.7 % (39.0-53.0) 28.9 % (39.0-53.0) Mean Corpuscular Volume 73 fL (79-100) 73 fL (79-100) 74 fL (79-100) Mean Corpuscular Hemoglobin 24 pg (25-35) 23 pg (25-35) 24 pg (25-35) Mean Corpuscular Hemoglobin Concent 32 g/dL (31-37) 32 g/dL (31-37) 32 g/dL (31-37) Red Cell Distribution Width 18.1 % (11.5-14.5) 18.5 % (11.5-14.5) 18.3 % (11.5-14.5) Platelet Count 29 x10^3/uL (140-400) 32 x10^3/uL (140-400) 27 x10^3/uL (140-400) Neutrophils (%) (Auto) 96 % (31-73) 97 % (31-73) Lymphocytes (%) (Auto) 2 % (24-48) 1 % (24-48) Monocytes (%) (Auto) 1 % (0-9) 1 % (0-9) Eosinophils (%) (Auto) 0 % (0-3) 0 % (0-3) Basophils (%) (Auto) 1 % (0-3) 1 % (0-3) Neutrophils # (Auto) 21.2 x10^3/uL (1.8-7.7) 20.5 x10^3/uL (1.8-7.7) Lymphocytes # (Auto) 0.4 x10^3/uL (1.0-4.8) 0.3 x10^3/uL (1.0-4.8) Monocytes # (Auto) 0.3 x10^3/uL (0.0-1.1) 0.3 x10^3/uL (0.0-1.1) Eosinophils # (Auto) 0.0 x10^3/uL (0.0-0.7) 0.0 x10^3/uL (0.0-0.7) Basophils # (Auto) 0.2 x10^3/uL (0.0-0.2) 0.2 x10^3/uL (0.0-0.2) Prothrombin Time 26.1 SEC (11.7-14.0) 25.4 SEC (11.7-14.0) Prothromb Time International Ratio 2.4 (0.8-1.1) 2.3 (0.8-1.1) Sodium Level 142 mmol/L (136-145) 143 mmol/L (136-145) 143 mmol/L (136-145) Potassium Level 4.6 mmol/L (3.5-5.1) 4.7 mmol/L (3.5-5.1) 5.0 mmol/L (3.5-5.1) Chloride Level 108 mmol/L (98-107) 109 mmol/L (98-107) 109 mmol/L (98-107) Carbon Dioxide Level 24 mmol/L (21-32) 25 mmol/L (21-32) 23 mmol/L (21-32) Anion Gap 10 (6-14) 9 (6-14) 11 (6-14) Blood Urea Nitrogen 39 mg/dL (8-26) 38 mg/dL (8-26) 36 mg/dL (8-26) Creatinine 1.7 mg/dL (0.7-1.3) 1.6 mg/dL (0.7-1.3) 1.4 mg/dL (0.7-1.3) Estimated GFR (Cockcroft-Gault) 39.2 42.0 49.0 BUN/Creatinine Ratio 23 (6-20) 24 (6-20) 26 (6-20) Glucose Level 228 mg/dL (70-99) 226 mg/dL (70-99) 212 mg/dL (70-99) Calcium Level 6.8 mg/dL (8.5-10.1) 7.1 mg/dL (8.5-10.1) 6.9 mg/dL (8.5-10.1) Phosphorus Level 2.8 mg/dL (2.6-4.7) 3.5 mg/dL (2.6-4.7) 3.6 mg/dL (2.6-4.7) Magnesium Level 2.5 mg/dL (1.8-2.4) 2.6 mg/dL (1.8-2.4) 2.5 mg/dL (1.8-2.4) Total Bilirubin 9.5 mg/dL (0.2-1.0) 10.1 mg/dL (0.2-1.0) 10.0 mg/dL (0.2-1.0) Aspartate Amino Transf (AST/SGOT) 432 U/L (15-37) 375 U/L (15-37) 341 U/L (15-37) Alanine Aminotransferase (ALT/SGPT) 1068 U/L (16-63) 946 U/L (16-63) 888 U/L (16-63) Alkaline Phosphatase 103 U/L (46-116) 104 U/L (46-116) 98 U/L (46-116) Total Protein 4.7 g/dL (6.4-8.2) 4.6 g/dL (6.4-8.2) 4.5 g/dL (6.4-8.2) Albumin 1.7 g/dL (3.4-5.0) 1.7 g/dL (3.4-5.0) 1.6 g/dL (3.4-5.0) Albumin/Globulin Ratio 0.6 (1.0-1.7) 0.6 (1.0-1.7) 0.6 (1.0-1.7) O2 Saturation 93 % (92-99) Arterial Blood pH 7.50 (7.35-7.45) Arterial Blood pCO2 at Patient Temp 30 mmHg (35-46) Arterial Blood pO2 at Patient Temp 72 mmHg (65-108) Arterial Blood HCO3 23 mmol/L (21-28) Arterial Blood Base Excess 0 mmol/L (-3-3) FiO2 40 Activated Partial Thromboplast Time 34 SEC (24-38) Fibrinogen 124 mg/dL (200-440) Test 09/16/19 22:50 09/17/19 06:10 Sodium Level 142 mmol/L (136-145) 142 mmol/L (136-145) Potassium Level 4.9 mmol/L (3.5-5.1) 5.2 mmol/L (3.5-5.1) Chloride Level 109 mmol/L (98-107) 107 mmol/L (98-107) Carbon Dioxide Level 24 mmol/L (21-32) 24 mmol/L (21-32) Anion Gap 9 (6-14) 11 (6-14) Blood Urea Nitrogen 42 mg/dL (8-26) 39 mg/dL (8-26) Creatinine 1.6 mg/dL (0.7-1.3) 1.4 mg/dL (0.7-1.3) Estimated GFR (Cockcroft-Gault) 42.0 49.0 BUN/Creatinine Ratio 26 (6-20) 28 (6-20) Glucose Level 228 mg/dL (70-99) 206 mg/dL (70-99) Calcium Level 7.0 mg/dL (8.5-10.1) 7.3 mg/dL (8.5-10.1) Phosphorus Level 4.1 mg/dL (2.6-4.7) 4.2 mg/dL (2.6-4.7) Magnesium Level 2.6 mg/dL (1.8-2.4) 2.9 mg/dL (1.8-2.4) Total Bilirubin 10.4 mg/dL (0.2-1.0) 11.7 mg/dL (0.2-1.0) Aspartate Amino Transf (AST/SGOT) 290 U/L (15-37) 287 U/L (15-37) Alanine Aminotransferase (ALT/SGPT) 825 U/L (16-63) 835 U/L (16-63) Alkaline Phosphatase 102 U/L (46-116) 114 U/L (46-116) Total Protein 4.6 g/dL (6.4-8.2) 5.2 g/dL (6.4-8.2) Albumin 1.6 g/dL (3.4-5.0) 1.7 g/dL (3.4-5.0) Albumin/Globulin Ratio 0.5 (1.0-1.7) 0.5 (1.0-1.7) White Blood Count 17.4 x10^3/uL (4.0-11.0) Red Blood Count 4.28 x10^6/uL (4.30-5.70) Hemoglobin 10.0 g/dL (13.0-17.5) Hematocrit 31.9 % (39.0-53.0) Mean Corpuscular Volume 75 fL (79-100) Mean Corpuscular Hemoglobin 23 pg (25-35) Mean Corpuscular Hemoglobin Concent 32 g/dL (31-37) Red Cell Distribution Width 19.5 % (11.5-14.5) Platelet Count 26 x10^3/uL (140-400) Neutrophils (%) (Auto) 98 % (31-73) Lymphocytes (%) (Auto) 1 % (24-48) Monocytes (%) (Auto) 0 % (0-9) Eosinophils (%) (Auto) 0 % (0-3) Basophils (%) (Auto) 1 % (0-3) Neutrophils # (Auto) 16.9 x10^3/uL (1.8-7.7) Lymphocytes # (Auto) 0.2 x10^3/uL (1.0-4.8) Monocytes # (Auto) 0.1 x10^3/uL (0.0-1.1) Eosinophils # (Auto) 0.0 x10^3/uL (0.0-0.7) Basophils # (Auto) 0.1 x10^3/uL (0.0-0.2) Laboratory Tests Test 09/16/19 11:35 09/16/19 16:05 09/16/19 22:50 09/17/19 06:10 White Blood Count 21.3 x10^3/uL (4.0-11.0) 20.0 x10^3/uL (4.0-11.0) 17.4 x10^3/uL (4.0-11.0) Red Blood Count 4.05 x10^6/uL (4.30-5.70) 3.92 x10^6/uL (4.30-5.70) 4.28 x10^6/uL (4.30-5.70) Hemoglobin 9.5 g/dL (13.0-17.5) 9.4 g/dL (13.0-17.5) 10.0 g/dL (13.0-17.5) Hematocrit 29.7 % (39.0-53.0) 28.9 % (39.0-53.0) 31.9 % (39.0-53.0) Mean Corpuscular Volume 73 fL (79-100) 74 fL (79-100) 75 fL (79-100) Mean Corpuscular Hemoglobin 23 pg (25-35) 24 pg (25-35) 23 pg (25-35) Mean Corpuscular Hemoglobin Concent 32 g/dL (31-37) 32 g/dL (31-37) 32 g/dL (31-37) Red Cell Distribution Width 18.5 % (11.5-14.5) 18.3 % (11.5-14.5) 19.5 % (11.5-14.5) Platelet Count 32 x10^3/uL (140-400) 27 x10^3/uL (140-400) 26 x10^3/uL (140-400) Neutrophils (%) (Auto) 97 % (31-73) 98 % (31-73) Lymphocytes (%) (Auto) 1 % (24-48) 1 % (24-48) Monocytes (%) (Auto) 1 % (0-9) 0 % (0-9) Eosinophils (%) (Auto) 0 % (0-3) 0 % (0-3) Basophils (%) (Auto) 1 % (0-3) 1 % (0-3) Neutrophils # (Auto) 20.5 x10^3/uL (1.8-7.7) 16.9 x10^3/uL (1.8-7.7) Lymphocytes # (Auto) 0.3 x10^3/uL (1.0-4.8) 0.2 x10^3/uL (1.0-4.8) Monocytes # (Auto) 0.3 x10^3/uL (0.0-1.1) 0.1 x10^3/uL (0.0-1.1) Eosinophils # (Auto) 0.0 x10^3/uL (0.0-0.7) 0.0 x10^3/uL (0.0-0.7) Basophils # (Auto) 0.2 x10^3/uL (0.0-0.2) 0.1 x10^3/uL (0.0-0.2) Prothrombin Time 25.4 SEC (11.7-14.0) Prothromb Time International Ratio 2.3 (0.8-1.1) Activated Partial Thromboplast Time 34 SEC (24-38) Fibrinogen 124 mg/dL (200-440) Sodium Level 143 mmol/L (136-145) 143 mmol/L (136-145) 142 mmol/L (136-145) 142 mmol/L (136-145) Potassium Level 4.7 mmol/L (3.5-5.1) 5.0 mmol/L (3.5-5.1) 4.9 mmol/L (3.5-5.1) 5.2 mmol/L (3.5-5.1) Chloride Level 109 mmol/L (98-107) 109 mmol/L (98-107) 109 mmol/L (98-107) 107 mmol/L (98-107) Carbon Dioxide Level 25 mmol/L (21-32) 23 mmol/L (21-32) 24 mmol/L (21-32) 24 mmol/L (21-32) Anion Gap 9 (6-14) 11 (6-14) 9 (6-14) 11 (6-14) Blood Urea Nitrogen 38 mg/dL (8-26) 36 mg/dL (8-26) 42 mg/dL (8-26) 39 mg/dL (8-26) Creatinine 1.6 mg/dL (0.7-1.3) 1.4 mg/dL (0.7-1.3) 1.6 mg/dL (0.7-1.3) 1.4 mg/dL (0.7-1.3) Estimated GFR (Cockcroft-Gault) 42.0 49.0 42.0 49.0 BUN/Creatinine Ratio 24 (6-20) 26 (6-20) 26 (6-20) 28 (6-20) Glucose Level 226 mg/dL (70-99) 212 mg/dL (70-99) 228 mg/dL (70-99) 206 mg/dL (70-99) Calcium Level 7.1 mg/dL (8.5-10.1) 6.9 mg/dL (8.5-10.1) 7.0 mg/dL (8.5-10.1) 7.3 mg/dL (8.5-10.1) Phosphorus Level 3.5 mg/dL (2.6-4.7) 3.6 mg/dL (2.6-4.7) 4.1 mg/dL (2.6-4.7) 4.2 mg/dL (2.6-4.7) Magnesium Level 2.6 mg/dL (1.8-2.4) 2.5 mg/dL (1.8-2.4) 2.6 mg/dL (1.8-2.4) 2.9 mg/dL (1.8-2.4) Total Bilirubin 10.1 mg/dL (0.2-1.0) 10.0 mg/dL (0.2-1.0) 10.4 mg/dL (0.2-1.0) 11.7 mg/dL (0.2-1.0) Aspartate Amino Transf (AST/SGOT) 375 U/L (15-37) 341 U/L (15-37) 290 U/L (15-37) 287 U/L (15-37) Alanine Aminotransferase (ALT/SGPT) 946 U/L (16-63) 888 U/L (16-63) 825 U/L (16-63) 835 U/L (16-63) Alkaline Phosphatase 104 U/L (46-116) 98 U/L (46-116) 102 U/L (46-116) 114 U/L (46-116) Total Protein 4.6 g/dL (6.4-8.2) 4.5 g/dL (6.4-8.2) 4.6 g/dL (6.4-8.2) 5.2 g/dL (6.4-8.2) Albumin 1.7 g/dL (3.4-5.0) 1.6 g/dL (3.4-5.0) 1.6 g/dL (3.4-5.0) 1.7 g/dL (3.4-5.0) Albumin/Globulin Ratio 0.6 (1.0-1.7) 0.6 (1.0-1.7) 0.5 (1.0-1.7) 0.5 (1.0- 1.7) Medications Active Scripts Medications Dose Route/Sig Max Daily Dose Days Date Category Naproxen 500 Mg Tablet 1 Tab PO PRN BID PRN 30 09/10/19 Reported Avodart (Dutasteride) 0.5 Mg Capsule 1 Cap PO DAILY 09/10/19 Reported Impression . IMPRESSION: 1. Acute hypoxemic respiratory failure/ARDS 2. SEPTIC SHOCK 3. Abnormal CT chest revealing bilateral pulmonary infiltrates. 4. Pneumonia, suspect gram-negative, gram-positive. 5. Possible acute pulmonary edema. 6. Possible interstitial lung disease/pulmonary fibrosis. 7. History of rheumatoid arthritis. 8. Atrial fibrillation with rapid ventricular response. 9. ACUTE MET ACIDOSIS, resolved, now resp alkalosis 10. ACUTE RENAL FAILURE CXR IMPRESSION: Interstitial pulmonary edema or atypical/viral infection. Stable position of lines and tubes. Plan . IMPROVING NOT READY FOR WEAN SEDATION HOLIDAY D/W RN RESTART TUBE FEEDING CRRT ANTIBX PER ID DVT AND GI PROPH STEROIDS CCT 35 MIN D/W RN AND RT VIRGEN ROME MD Sep 17, 2019 09:12
--- NOTE | 2019-09-17 09:37 | PDOC ---
SUBJECTIVE Subjective S: About the same, no known active bleeding O: Physical exam: Gen.: Elderly man, sedate resting in bed HEENT: ETT tube, min oral bleeding Labs: White count 17, hb 10, platelets 26 PTT 34 Fibrinogen 124 INR 2.3 T bili 11.7 Creatinine 1.4 Assessment and Plan: He is a 79-year-old man previously healthy other than rheumatoid arthritis that was not on immunosuppressive admitted for pneumonia with A. fib with RVR, lactic acidosis, shock liver, acute kidney injury on CRRT, resp failure intubated, sepsis and multiorgan failure Respiratory failure: Intubated, per pulmonary A. fib with RVR: Cardiology is involved Sepsis: ID w/ pressors prn Acute kidney injury: On CRRT, nephrology is involved DIC: Can transfuse for hemoglobin less than 7 or platelets less than 10,000 spontaneously or with active bleeding goal of 50,000 (no active bleeding at the moment), can give FFP for prolonged PTT prn, can give vitamin K judiciously for elevated INR prn, cryopreciptate can be given to keep fibrinogen greater than 100, currently it is, if purpura fulminans developed could give protein C concentrate but would not use at this point due to bleeding risks, some poss bleeding orally... Prognosis: Poor with multiorgan failure Thank you kindly and please do not hesitate to call with questions. OBJECTIVE Vital Signs Vital Signs Date Time Temp Pulse Resp B/P (MAP) Pulse Ox O2 Delivery O2 Flow Rate FiO2 09/17/19 09:00 81 20 110/56 (74) 98 Ventilator 09/17/19 08:35 98 Ventilator 09/17/19 08:04 98 15.0 09/17/19 08:00 98.8 92 20 120/63 (82) 96 Ventilator 98.8 09/17/19 08:00 Mechanical Ventilator 09/17/19 07:00 84 20 106/48 (67) 98 Ventilator 09/17/19 06:00 71 20 111/51 (71) 100 Ventilator 09/17/19 05:00 79 20 98/50 (66) 99 Ventilator 09/17/19 04:53 100 Ventilator 09/17/19 04:00 95.7 82 20 123/54 (77) 96 Ventilator 95.7 09/17/19 04:00 Mechanical Ventilator 09/17/19 03:00 74 20 116/43 (67) 100 Ventilator 09/17/19 02:30 100 Ventilator 09/17/19 02:00 93 20 106/57 (73) 100 Ventilator 09/17/19 01:00 86 20 115/63 (80) 100 Ventilator 09/17/19 00:35 20 100 Ventilator 09/17/19 00:29 100 Ventilator 09/17/19 00:03 20 100 Ventilator 09/17/19 00:00 Mechanical Ventilator 09/17/19 00:00 97.3 82 20 89/55 (66) 98 Ventilator 97.3 09/16/19 23:00 86 20 97/49 (65) 100 Ventilator 09/16/19 22:00 80 20 87/41 (56) 99 Ventilator 09/16/19 21:00 85 20 126/55 (78) 100 Ventilator 09/16/19 20:25 100 Ventilator 09/16/19 20:00 Mechanical Ventilator 09/16/19 20:00 97.7 81 20 123/80 (94) 100 Ventilator 97.7 09/16/19 19:00 75 20 105/65 (78) 100 Ventilator 09/16/19 18:00 82 20 130/60 (83) 100 Ventilator 09/16/19 17:00 72 20 128/58 (81) 100 Ventilator 09/16/19 16:33 100 Ventilator 09/16/19 16:26 20 100 Ventilator 09/16/19 16:00 73 135/65 (88) 09/16/19 16:00 97.3 77 20 137/66 (89) 100 Ventilator 97.3 09/16/19 16:00 Mechanical Ventilator 09/16/19 15:56 20 100 Ventilator 09/16/19 15:00 72 20 151/67 (95) 100 Ventilator 09/16/19 14:34 118/60 (79) 09/16/19 14:00 75 30 120/56 (77) 100 Ventilator 09/16/19 13:00 100 Ventilator 09/16/19 13:00 87 30 102/60 (74) 100 Ventilator 09/16/19 12:49 100 Ventilator 09/16/19 12:00 109/59 (76) 09/16/19 12:00 Mechanical Ventilator 09/16/19 12:00 97.3 83 30 112/57 (75) 100 Ventilator 97.3 09/16/19 11:00 81 30 117/55 (75) 100 Ventilator 09/16/19 10:00 75 30 119/58 (78) 100 Ventilator I & O Intake and Output 09/17/19 07:00 Intake Total 659.1 ml Output Total 710 ml Balance -50.9 ml IV Total 559.1 ml Tube Feeding 100 ml Output Urine Total 10 ml Gastric Drainage Total 700 ml # Bowel Movements 3 COMMENT Lab Laboratory Tests Test 09/16/19 11:35 09/16/19 16:05 09/16/19 22:50 09/17/19 06:10 White Blood Count 21.3 x10^3/uL (4.0-11.0) 20.0 x10^3/uL (4.0-11.0) 17.4 x10^3/uL (4.0-11.0) Red Blood Count 4.05 x10^6/uL (4.30-5.70) 3.92 x10^6/uL (4.30-5.70) 4.28 x10^6/uL (4.30-5.70) Hemoglobin 9.5 g/dL (13.0-17.5) 9.4 g/dL (13.0-17.5) 10.0 g/dL (13.0-17.5) Hematocrit 29.7 % (39.0-53.0) 28.9 % (39.0-53.0) 31.9 % (39.0-53.0) Mean Corpuscular Volume 73 fL (79-100) 74 fL (79-100) 75 fL (79-100) Mean Corpuscular Hemoglobin 23 pg (25-35) 24 pg (25-35) 23 pg (25-35) Mean Corpuscular Hemoglobin Concent 32 g/dL (31-37) 32 g/dL (31-37) 32 g/dL (31-37) Red Cell Distribution Width 18.5 % (11.5-14.5) 18.3 % (11.5-14.5) 19.5 % (11.5-14.5) Platelet Count 32 x10^3/uL (140-400) 27 x10^3/uL (140-400) 26 x10^3/uL (140-400) Neutrophils (%) (Auto) 97 % (31-73) 98 % (31-73) Lymphocytes (%) (Auto) 1 % (24-48) 1 % (24-48) Monocytes (%) (Auto) 1 % (0-9) 0 % (0-9) Eosinophils (%) (Auto) 0 % (0-3) 0 % (0-3) Basophils (%) (Auto) 1 % (0-3) 1 % (0-3) Neutrophils # (Auto) 20.5 x10^3/uL (1.8-7.7) 16.9 x10^3/uL (1.8-7.7) Lymphocytes # (Auto) 0.3 x10^3/uL (1.0-4.8) 0.2 x10^3/uL (1.0-4.8) Monocytes # (Auto) 0.3 x10^3/uL (0.0-1.1) 0.1 x10^3/uL (0.0-1.1) Eosinophils # (Auto) 0.0 x10^3/uL (0.0-0.7) 0.0 x10^3/uL (0.0-0.7) Basophils # (Auto) 0.2 x10^3/uL (0.0-0.2) 0.1 x10^3/uL (0.0-0.2) Prothrombin Time 25.4 SEC (11.7-14.0) Prothromb Time International Ratio 2.3 (0.8-1.1) Activated Partial Thromboplast Time 34 SEC (24-38) Fibrinogen 124 mg/dL (200-440) Sodium Level 143 mmol/L (136-145) 143 mmol/L (136-145) 142 mmol/L (136-145) 142 mmol/L (136-145) Potassium Level 4.7 mmol/L (3.5-5.1) 5.0 mmol/L (3.5-5.1) 4.9 mmol/L (3.5-5.1) 5.2 mmol/L (3.5-5.1) Chloride Level 109 mmol/L (98-107) 109 mmol/L (98-107) 109 mmol/L (98-107) 107 mmol/L (98-107) Carbon Dioxide Level 25 mmol/L (21-32) 23 mmol/L (21-32) 24 mmol/L (21-32) 24 mmol/L (21-32) Anion Gap 9 (6-14) 11 (6-14) 9 (6-14) 11 (6-14) Blood Urea Nitrogen 38 mg/dL (8-26) 36 mg/dL (8-26) 42 mg/dL (8-26) 39 mg/dL (8-26) Creatinine 1.6 mg/dL (0.7-1.3) 1.4 mg/dL (0.7-1.3) 1.6 mg/dL (0.7-1.3) 1.4 mg/dL (0.7-1.3) Estimated GFR (Cockcroft-Gault) 42.0 49.0 42.0 49.0 BUN/Creatinine Ratio 24 (6-20) 26 (6-20) 26 (6-20) 28 (6-20) Glucose Level 226 mg/dL (70-99) 212 mg/dL (70-99) 228 mg/dL (70-99) 206 mg/dL (70-99) Calcium Level 7.1 mg/dL (8.5-10.1) 6.9 mg/dL (8.5-10.1) 7.0 mg/dL (8.5-10.1) 7.3 mg/dL (8.5-10.1) Phosphorus Level 3.5 mg/dL (2.6-4.7) 3.6 mg/dL (2.6-4.7) 4.1 mg/dL (2.6-4.7) 4.2 mg/dL (2.6-4.7) Magnesium Level 2.6 mg/dL (1.8-2.4) 2.5 mg/dL (1.8-2.4) 2.6 mg/dL (1.8-2.4) 2.9 mg/dL (1.8-2.4) Total Bilirubin 10.1 mg/dL (0.2-1.0) 10.0 mg/dL (0.2-1.0) 10.4 mg/dL (0.2-1.0) 11.7 mg/dL (0.2-1.0) Aspartate Amino Transf (AST/SGOT) 375 U/L (15-37) 341 U/L (15-37) 290 U/L (15-37) 287 U/L (15-37) Alanine Aminotransferase (ALT/SGPT) 946 U/L (16-63) 888 U/L (16-63) 825 U/L (16-63) 835 U/L (16-63) Alkaline Phosphatase 104 U/L (46-116) 98 U/L (46-116) 102 U/L (46-116) 114 U/L (46-116) Total Protein 4.6 g/dL (6.4-8.2) 4.5 g/dL (6.4-8.2) 4.6 g/dL (6.4-8.2) 5.2 g/dL (6.4-8.2) Albumin 1.7 g/dL (3.4-5.0) 1.6 g/dL (3.4-5.0) 1.6 g/dL (3.4-5.0) 1.7 g/dL (3.4-5.0) Albumin/Globulin Ratio 0.6 (1.0-1.7) 0.6 (1.0-1.7) 0.5 (1.0-1.7) 0.5 (1.0- 1.7) HOWARD CARLTON MD Sep 17, 2019 09:37
--- NOTE | 2019-09-17 09:49 | PN ---
DATE: 09/17/2019 SUBJECTIVE: The patient continued to be sedated, intubated and mechanically ventilated. He continued to be on continuous renal replacement therapy. He continues to be on FiO2 of 40%, maintaining his oxygen saturation at 98%. He is also on vasopressin, continued to be completely anuric, has had no further episode of GI bleed and his NG tube is to low continuous suction. PHYSICAL EXAMINATION: GENERAL: When I examined him, he looked pale, but no jaundice, cyanosis or thyromegaly. No jugular venous distention. No lower limb edema. VITAL SIGNS: Her heart rate was 81, blood pressure was 110/56, temperature was 98.8, respiratory rate was 20, and oxygen saturation was 98% on FiO2 of 40%. HEAD, EYES, EARS, NOSE AND THROAT: Showed normocephalic, atraumatic. NECK: Supple. HEART: Showed normal first and second heart sounds with no gallop or murmur. CHEST: Clear to auscultation. No crepitation or rhonchi. ABDOMEN: Distended, soft, nontender. NEUROLOGIC: He is heavily sedated. His intake was 2100, output was 400. LABORATORY DATA: Showed a white cell count 17,000, hemoglobin 10, hematocrit 32, MCV 75 and platelet count 26,000 with normal manual differential. His prothrombin time was 25.4, INR of 2.3, aPTT was 34 and fibrinogen was 124. His serum sodium 142, potassium 5.2, chloride 107, bicarbonate 24, anion gap of 11, BUN 39, creatinine 1.4, estimated GFR was 49 mL per minute. His glucose was 206, calcium was 7.3 total phosphorus 4.2 and magnesium was 2.9. His bilirubin is 11.6 total AST, ALT slightly elevated, although are trending down and alkaline phosphatase were normal. Total protein was 5.2, albumin was 1.7. ASSESSMENT: 1. Acute hypoxic respiratory failure/ARDS. 2. Septic shock requiring vasopressors, IV antibiotic. 3. Pneumonia. 4. Acute kidney injury, likely due to acute tubular necrosis secondary to sepsis. He continues to be completely anuric, currently on continuous renal replacement therapy, tolerating it well. 5. Hypertension for which he continues to be on vasopressin, his Levophed and epinephrine were discontinued. 6. Acute transaminitis, improving. His alkaline phosphatase is normal; however, the bilirubin continues to go up. 7. Rheumatoid arthritis. 8. Possible interstitial lung disease and pulmonary fibrosis. 9. Atrial fibrillation with rapid ventricular response for which he was cardioverted. 10. Thrombocytopenia that has plateaued today, the platelet count is 26,000. However, his leukocytosis is improving down to 17,000 from 40,000. 11. He has episodes of lower gastrointestinal bleeding. His hemoglobin and hematocrit remained stable. 12. High gastric residuals for which his tube feed was on hold. PLAN: To continue mechanical ventilation and obviously wean as tolerated. Continue with vasopressin to support his blood pressure. Continue with continuous renal replacement therapy. Continue with IV antibiotic. Continue with Versed and fentanyl for sedation. Continue with IV Solu-Medrol. INGRIS FINCH MD DR: JOSIANE/jose JOB#: [id number] / [id number]
--- NOTE | 2019-09-17 10:32 | PDOC ---
SUBJECTIVE ROS Intubated, On Vasopressin OBJECTIVE Vital Signs Vital Signs Date Time Temp Pulse Resp B/P (MAP) Pulse Ox O2 Delivery O2 Flow Rate FiO2 09/17/19 10:00 87 20 105/49 (67) 96 Ventilator 09/17/19 08:04 15.0 09/17/19 08:00 96.0 96.0 I & 0 Intake and Output 09/17/19 07:00 Intake Total 659.1 ml Output Total 710 ml Balance -50.9 ml IV Total 559.1 ml Tube Feeding 100 ml Output Urine Total 10 ml Gastric Drainage Total 700 ml # Bowel Movements 3 PHYSICAL EXAM Physical Exam GENERAL: orally intubated on vent HEENT: Both pupils are round and reacting. Orally intubated NECK: Supple, LUNGS: Clear. HEART: S1, S2 regular. ABDOMEN: Soft, EXTREMITIES: No edema, cyanosis. SKIN: Unremarkable. 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 Pneumonia Possible interstitial lung disease/pulmonary fibrosis. History of rheumatoid arthritis. Atrial fibrillation with rapid ventricular response. Cardioverted Discussed with family at bedside COMMENT/RELEVANT DATA Meds Current Medications Medications (Trade) Dose Ordered Sig/Veena Start Time Stop Time Status Last Admin Dose Admin Albuterol Sulfate (Ventolin Neb Soln) 2.5 mg RTQID 09/10/19 08:00 09/17/19 07:45 2.5 MG Amiodarone HCl 450 mg/Dextrose 259 ml @ 17 mls/hr CONT PRN 09/10/19 09:00 09/11/19 02:33 17 MLS/HR Azithromycin (Zithromax) 250 mg DAILY 09/10/19 09:00 09/10/19 13:35 DC 09/10/19 08:38 250 MG Bisacodyl (Dulcolax Supp) 10 mg PRN DAILY PRN 09/10/19 10:00 09/10/19 10:00 10 MG Calcium Chloride 12.5 meq/ Bicarbonate Dialysis Soln w/ out KCl 5,008.9286 ml @ 1,000 mls/hr Q5H1M 09/12/19 13:00 09/12/19 12:18 DC Ceftriaxone Sodium (Rocephin) 1 gm Q24H 09/10/19 12:00 09/10/19 13:35 DC 09/10/19 12:55 1 GM Daptomycin 320 mg/ Sodium Chloride 50 ml @ 100 mls/hr Q24H 09/13/19 08:00 09/17/19 08:26 100 MLS/HR Diltiazem HCl 125 mg/Dextrose 125 ml @ 0 mls/hr CONT PRN 09/10/19 06:30 09/11/19 05:40 10 MLS/HR Dutasteride (Avodart) 0.5 mg DAILY 09/10/19 09:00 09/15/19 08:09 0.5 MG Epinephrine HCl 4 mg/Sodium Chloride 254 ml @ 28.061 mls/ hr CONT PRN 09/11/19 15:45 09/13/19 15:56 DC Fentanyl Citrate (Fentanyl 600 Mcg/30 ml PRACTICE CONSULTANT) 600 mcg STK-MED ONCE 09/11/19 11:28 09/12/19 15:46 DC Fluconazole/ Sodium Chloride 50 ml @ 100 mls/hr Q24H 09/16/19 08:15 09/16/19 08:14 DC Furosemide (Lasix) 40 mg 1X ONCE 09/10/19 15:45 09/10/19 15:46 DC 09/10/19 16:38 40 MG Influenza Virus Vaccine Quadrival (Afluria Quad 2019-20 (3yr Up) Syringe) 0.5 ml ONCE ONCE 09/11/19 09:00 09/11/19 09:01 DC Lactobacillus Rhamnosus (Culturelle) 1 cap BID 09/10/19 09:00 09/12/19 09:15 DC 09/11/19 21:16 1 CAP Levofloxacin/ Dextrose 100 ml @ 100 mls/hr Q24H 09/12/19 09:00 09/17/19 08:26 100 MLS/HR Lidocaine HCl (Buffered Lidocaine 1%) 3 ml 1X ONCE 09/11/19 17:15 09/11/19 17:16 DC 09/11/19 17:14 3 ML Lidocaine HCl (Lta Kit) 4 ml STK-MED ONCE 09/10/19 16:00 09/12/19 09:29 DC Lorazepam (Ativan Inj) 0.5 mg 1X ONCE 09/10/19 11:45 09/10/19 11:47 DC 09/10/19 11:48 0.5 MG Meropenem 500 mg/ Sodium Chloride 50 ml @ 100 mls/hr Q12H 09/15/19 21:00 09/17/19 08:26 100 MLS/HR Methylprednisolone Sodium Succinate (SOLU-Medrol 40MG VIAL) 40 mg Q12HR 09/16/19 21:00 09/17/19 08:27 40 MG Midazolam HCl 100 ml @ 0 mls/hr CONT PRN 09/11/19 10:15 09/16/19 22:53 5 MLS/HR Morphine Sulfate (Morphine Sulfate) 4 mg PRN Q2HR PRN 09/10/19 21:15 09/11/19 20:31 4 MG Naproxen (Naprosyn) 500 mg PRN BID PRN 09/10/19 06:30 09/12/19 11:01 DC Norepinephrine Bitartrate 250 ml @ 13.81 mls/ hr CONT PRN 09/11/19 10:45 09/12/19 10:47 25 MLS/HR Pantoprazole Sodium (PROTONIX VIAL for IV PUSH) 40 mg DAILYAC 09/12/19 12:00 09/17/19 07:28 40 MG Phytonadione (Vitamin K Ampule) 10 mg 1X ONCE 09/16/19 08:45 09/16/19 08:46 UNV Phytonadione 1 mg/ Dextrose 50.1 ml @ 102 mls/hr 1X ONCE 09/12/19 17:00 09/12/19 17:29 DC 09/12/19 17:07 102 MLS/HR Piperacillin Sod/ Tazobactam Sod 3.375 gm/Sodium Chloride 50 ml @ 100 mls/hr 1X ONCE 09/13/19 22:00 09/13/19 22:29 DC 09/13/19 22:27 100 MLS/HR Potassium Chloride 10 meq/ Bicarbonate Dialysis Soln w/ out KCl 5,005 ml @ 1,000 mls/hr Q5H1M 09/12/19 13:00 09/13/19 08:36 DC 09/13/19 06:05 1,000 MLS/HR Potassium Chloride 15 meq/ Bicarbonate Dialysis Soln w/ out KCl 5,007.5 ml @ 1,000 mls/ hr Q5H1M 09/17/19 07:45 09/17/19 08:16 1,000 MLS/HR Potassium Chloride 20 meq/ Bicarbonate Dialysis Soln w/ out KCl 5,010 ml @ 1,000 mls/hr Q5H1M 09/15/19 13:45 09/17/19 07:39 DC 09/17/19 02:18 1,000 MLS/HR Propofol 100 ml @ 0 mls/hr CONT PRN 09/11/19 10:15 09/13/19 15:56 DC Sodium Bicarbonate 100 meq/Dextrose 1,100 ml @ 75 mls/hr [id number] 09/11/19 09:00 09/13/19 15:56 DC 09/13/19 06:03 75 MLS/HR Sodium Bicarbonate (Sodium Bicarb Adult 8.4% Syr) 100 meq 1X ONCE 09/11/19 11:15 09/11/19 11:16 DC 09/11/19 11:28 100 MEQ Sodium Chloride 500 ml @ 500 mls/hr 1X ONCE 09/11/19 21:15 09/11/19 22:14 DC 09/11/19 21:21 500 MLS/HR Sodium Chloride (Normal Saline Flush) 10 ml QSHIFT PRN 09/10/19 07:00 Succinylcholine Chloride (Anectine) 200 mg STK-MED ONCE 09/11/19 10:57 09/11/19 10:57 DC Vancomycin HCl (Vanco Per Pharmacy) 1 each PRN DAILY PRN 09/10/19 14:00 09/11/19 07:59 DC 09/10/19 16:55 1 EACH Vancomycin HCl (Vancomycin Trough Level) 1 each 1X ONCE 09/12/19 16:00 09/11/19 08:01 DC Vancomycin HCl 1.5 gm/Sodium Chloride 500 ml @ 250 mls/hr 1X ONCE 09/10/19 14:00 09/10/19 15:59 DC 09/10/19 16:39 250 MLS/HR Vancomycin HCl 1 gm/Sodium Chloride 250 ml @ 250 mls/hr Q24H 09/11/19 16:30 09/11/19 07:59 DC Vasopressin 40 unit/Dextrose 102 ml @ 6 mls/hr CONT PRN 09/11/19 11:30 09/16/19 22:52 6 MLS/HR Lab Laboratory Tests Test 09/16/19 11:35 09/16/19 16:05 09/16/19 22:50 09/17/19 06:10 White Blood Count 21.3 x10^3/uL (4.0-11.0) 20.0 x10^3/uL (4.0-11.0) 17.4 x10^3/uL (4.0-11.0) Red Blood Count 4.05 x10^6/uL (4.30-5.70) 3.92 x10^6/uL (4.30-5.70) 4.28 x10^6/uL (4.30-5.70) Hemoglobin 9.5 g/dL (13.0-17.5) 9.4 g/dL (13.0-17.5) 10.0 g/dL (13.0-17.5) Hematocrit 29.7 % (39.0-53.0) 28.9 % (39.0-53.0) 31.9 % (39.0-53.0) Mean Corpuscular Volume 73 fL (79-100) 74 fL (79-100) 75 fL (79-100) Mean Corpuscular Hemoglobin 23 pg (25-35) 24 pg (25-35) 23 pg (25-35) Mean Corpuscular Hemoglobin Concent 32 g/dL (31-37) 32 g/dL (31-37) 32 g/dL (31-37) Red Cell Distribution Width 18.5 % (11.5-14.5) 18.3 % (11.5-14.5) 19.5 % (11.5-14.5) Platelet Count 32 x10^3/uL (140-400) 27 x10^3/uL (140-400) 26 x10^3/uL (140-400) Neutrophils (%) (Auto) 97 % (31-73) 98 % (31-73) Lymphocytes (%) (Auto) 1 % (24-48) 1 % (24-48) Monocytes (%) (Auto) 1 % (0-9) 0 % (0-9) Eosinophils (%) (Auto) 0 % (0-3) 0 % (0-3) Basophils (%) (Auto) 1 % (0-3) 1 % (0-3) Neutrophils # (Auto) 20.5 x10^3/uL (1.8-7.7) 16.9 x10^3/uL (1.8-7.7) Lymphocytes # (Auto) 0.3 x10^3/uL (1.0-4.8) 0.2 x10^3/uL (1.0-4.8) Monocytes # (Auto) 0.3 x10^3/uL (0.0-1.1) 0.1 x10^3/uL (0.0-1.1) Eosinophils # (Auto) 0.0 x10^3/uL (0.0-0.7) 0.0 x10^3/uL (0.0-0.7) Basophils # (Auto) 0.2 x10^3/uL (0.0-0.2) 0.1 x10^3/uL (0.0-0.2) Prothrombin Time 25.4 SEC (11.7-14.0) Prothromb Time International Ratio 2.3 (0.8-1.1) Activated Partial Thromboplast Time 34 SEC (24-38) Fibrinogen 124 mg/dL (200-440) Sodium Level 143 mmol/L (136-145) 143 mmol/L (136-145) 142 mmol/L (136-145) 142 mmol/L (136-145) Potassium Level 4.7 mmol/L (3.5-5.1) 5.0 mmol/L (3.5-5.1) 4.9 mmol/L (3.5-5.1) 5.2 mmol/L (3.5-5.1) Chloride Level 109 mmol/L (98-107) 109 mmol/L (98-107) 109 mmol/L (98-107) 107 mmol/L (98-107) Carbon Dioxide Level 25 mmol/L (21-32) 23 mmol/L (21-32) 24 mmol/L (21-32) 24 mmol/L (21-32) Anion Gap 9 (6-14) 11 (6-14) 9 (6-14) 11 (6-14) Blood Urea Nitrogen 38 mg/dL (8-26) 36 mg/dL (8-26) 42 mg/dL (8-26) 39 mg/dL (8-26) Creatinine 1.6 mg/dL (0.7-1.3) 1.4 mg/dL (0.7-1.3) 1.6 mg/dL (0.7-1.3) 1.4 mg/dL (0.7-1.3) Estimated GFR (Cockcroft-Gault) 42.0 49.0 42.0 49.0 BUN/Creatinine Ratio 24 (6-20) 26 (6-20) 26 (6-20) 28 (6-20) Glucose Level 226 mg/dL (70-99) 212 mg/dL (70-99) 228 mg/dL (70-99) 206 mg/dL (70-99) Calcium Level 7.1 mg/dL (8.5-10.1) 6.9 mg/dL (8.5-10.1) 7.0 mg/dL (8.5-10.1) 7.3 mg/dL (8.5-10.1) Phosphorus Level 3.5 mg/dL (2.6-4.7) 3.6 mg/dL (2.6-4.7) 4.1 mg/dL (2.6-4.7) 4.2 mg/dL (2.6-4.7) Magnesium Level 2.6 mg/dL (1.8-2.4) 2.5 mg/dL (1.8-2.4) 2.6 mg/dL (1.8-2.4) 2.9 mg/dL (1.8-2.4) Total Bilirubin 10.1 mg/dL (0.2-1.0) 10.0 mg/dL (0.2-1.0) 10.4 mg/dL (0.2-1.0) 11.7 mg/dL (0.2-1.0) Aspartate Amino Transf (AST/SGOT) 375 U/L (15-37) 341 U/L (15-37) 290 U/L (15-37) 287 U/L (15-37) Alanine Aminotransferase (ALT/SGPT) 946 U/L (16-63) 888 U/L (16-63) 825 U/L (16-63) 835 U/L (16-63) Alkaline Phosphatase 104 U/L (46-116) 98 U/L (46-116) 102 U/L (46-116) 114 U/L (46-116) Total Protein 4.6 g/dL (6.4-8.2) 4.5 g/dL (6.4-8.2) 4.6 g/dL (6.4-8.2) 5.2 g/dL (6.4-8.2) Albumin 1.7 g/dL (3.4-5.0) 1.6 g/dL (3.4-5.0) 1.6 g/dL (3.4-5.0) 1.7 g/dL (3.4-5.0) Albumin/Globulin Ratio 0.6 (1.0-1.7) 0.6 (1.0-1.7) 0.5 (1.0-1.7) 0.5 (1.0- 1.7) Results All relevant outside records, renal labs, imaging studies, telemetry/EKG's were reviewed. JAMEL LOPEZ MD Sep 17, 2019 10:32
[2019-09-17 11:55] LABS: BASO % 0 % (0-3); EOS # 0.1 x10^3/uL (0.0-0.7); EOS % 0 % (0-3); HEMATOCRIT 30.9 % (39.0-53.0); HEMOGLOBIN 9.9 g/dL (13.0-17.5); LYMPH # 0.2 x10^3/uL (1.0-4.8); LYMPH % 1 % (24-48); MEAN CORPUSCULAR HEMOGLOBIN 24 pg (25-35); MEAN CORPUSCULAR HGB CONC 32 g/dL (31-37); MEAN CORPUSCULAR VOLUME 74 fL (79-100); MONO # 0.1 x10^3/uL (0.0-1.1); MONO % 1 % (0-9); NEUT # 17.3 x10^3/uL (1.8-7.7); NEUT % 98 % (31-73); RED BLOOD COUNT 4.16 x10^6/uL (4.30-5.70); WHITE BLOOD COUNT 17.7 x10^3/uL (4.0-11.0)
[2019-09-17 12:02] LABS: PLATELET COUNT 27 x10^3/uL (140-400)
[2019-09-17 12:08] LABS: ALBUMIN 1.8 g/dL (3.4-5.0); ALBUMIN/GLOBULIN RATIO 0.6 (1.0-1.7); CREATININE 1.3 mg/dL (0.7-1.3); GFR 53.4; MAGNESIUM 2.7 mg/dL (1.8-2.4); PHOSPHORUS 4.1 mg/dL (2.6-4.7); TOTAL BILIRUBIN 11.9 mg/dL (0.2-1.0); TOTAL PROTEIN 4.9 g/dL (6.4-8.2)
[2019-09-17] MEDS: [UNRECOGNIZED DRUG - OTHER] IV SCH ×16 (13:05→17:01)
[2019-09-17] MEDS: POTASSIUM CHLORIDE IV SCH ×16 (13:05→17:01)
[2019-09-17] MEDS: CALCIUM CHLORIDE IV SCH ×16 (13:05→17:01)
[2019-09-17] MEDS: NOREPINEPHRIN 8MG/250ML PREMIX 250 ML IV PRN (15:15)
--- NOTE | 2019-09-17 16:05 | NUR ---
SS following up with discharge planning. Pt remains on the vent at this time. SS phoned and faxed referrals for LTAC to [facility], [facility], ; fax [phone], and [facility] ([place], [place]), ; fax [phone]. SS will await acceptance decisions and will proceed accordingly with discharge planning.
[2019-09-17] MEDS: POTASSIUM CHLORIDE 15 MEQ in DIALYSIS SOLUTION BGK 0/2.5 5,000 ML IV SCH ×11 (18:25→22:51)
[2019-09-17 18:34] LABS: BASO % 0 % (0-3); EOS # 0.1 x10^3/uL (0.0-0.7); EOS % 1 % (0-3); HEMATOCRIT 31.2 % (39.0-53.0); LYMPH # 0.3 x10^3/uL (1.0-4.8); LYMPH % 1 % (24-48); MEAN CORPUSCULAR HEMOGLOBIN 24 pg (25-35); MEAN CORPUSCULAR HGB CONC 32 g/dL (31-37); MEAN CORPUSCULAR VOLUME 74 fL (79-100); MONO # 0.2 x10^3/uL (0.0-1.1); MONO % 1 % (0-9); NEUT # 20.1 x10^3/uL (1.8-7.7); NEUT % 97 % (31-73); PLATELET COUNT 36 x10^3/uL (140-400); RED BLOOD COUNT 4.21 x10^6/uL (4.30-5.70); RED CELL DISTRIBUTION WIDTH 19.2 % (11.5-14.5); WHITE BLOOD COUNT 20.6 x10^3/uL (4.0-11.0)
[2019-09-17 18:37] LABS: ALBUMIN 1.8 g/dL (3.4-5.0); ALBUMIN/GLOBULIN RATIO 0.6 (1.0-1.7); CREATININE 1.3 mg/dL (0.7-1.3); GFR 53.4; MAGNESIUM 2.5 mg/dL (1.8-2.4); PHOSPHORUS 3.8 mg/dL (2.6-4.7); POTASSIUM 4.9 mmol/L (3.5-5.1); TOTAL BILIRUBIN 12.9 mg/dL (0.2-1.0)
[2019-09-17 22:12] LABS: RVP ADENOVIRUS Negative (Negative); RVP INFLUENZA A Negative (Negative); RVP INFLUENZA B Negative (Negative); RVP METAPNEUMOVIRUS Negative (Negative); RVP PARAINFLUENZA 1 Negative (Negative); RVP PARAINFLUENZA 2 Negative (Negative); RVP PARAINFLUENZA 3 Negative (Negative); RVP RHINOVIRUS Negative (Negative); RVP RSV A Negative (Negative); RVP RSV B Negative (Negative)
[2019-09-17] MEDS: MIDAZOLAM 100mg/100ml NS BAG 100 ML IV PRN (22:50)
[2019-09-18] VITALS (24 sets, daily range): BP systolic 97–134; BP diastolic 47–66
[2019-09-18 00:31] LABS: CALCIUM 7.3 mg/dL (8.5-10.1); CREATININE 1.2 mg/dL (0.7-1.3); GFR 58.6; MAGNESIUM 2.7 mg/dL (1.8-2.4)
[2019-09-18] MEDS: POTASSIUM CHLORIDE 15 MEQ in DIALYSIS SOLUTION BGK 0/2.5 5,000 ML IV SCH ×20 (04:52→20:44)
[2019-09-18 06:31] LABS: HEMATOCRIT 32.8 % (39.0-53.0); HEMOGLOBIN 10.6 g/dL (13.0-17.5); RED BLOOD COUNT 4.42 x10^6/uL (4.30-5.70); RED CELL DISTRIBUTION WIDTH 18.9 % (11.5-14.5); WHITE BLOOD COUNT 19.5 x10^3/uL (4.0-11.0)
[2019-09-18 06:43] LABS: MAGNESIUM 2.7 mg/dL (1.8-2.4); PHOSPHORUS 3.9 mg/dL (2.6-4.7)
[2019-09-18 06:47] LABS: ALBUMIN 1.8 g/dL (3.4-5.0); ALBUMIN/GLOBULIN RATIO 0.5 (1.0-1.7); CALCIUM 7.4 mg/dL (8.5-10.1); CREATININE 1.1 mg/dL (0.7-1.3); GFR 64.7; TOTAL BILIRUBIN 14.4 mg/dL (0.2-1.0); TOTAL PROTEIN 5.3 g/dL (6.4-8.2)
--- NOTE | 2019-09-18 07:30 | PDOC ---
Infectious Disease Note Subjective: Subjective Pt condition remains unchanged sedated on vent on low dose pressors undergoing CRRT Fio2 40% ROS: ROS d/w rn Vital Signs: Vital Signs Vital Signs Date Time Temp Pulse Resp B/P (MAP) Pulse Ox O2 Delivery O2 Flow Rate FiO2 09/18/19 06:00 89 20 101/55 (70) 100 Ventilator 09/18/19 04:00 96.9 96.9 09/17/19 16:32 15.0 Physical Exam: PHYSICAL EXAM GENERAL: orally intubated on vent HEENT: icteric, ETT +,no lesion in the mouth. NECK: Supple, RT IJ and central line + looks clean LUNGS: Clear anteriorly HEART: S1, S2 regular. ABDOMEN: Soft, nontender, no organomegaly. EXTREMITIES: +edema, no cyanosis. SKIN: Unremarkable. NEUROLOGIC: sedated intubated Medications: Inpatient Meds: Current Medications Medications (Trade) Dose Ordered Sig/Veena Start Time Stop Time Status Last Admin Dose Admin Albuterol Sulfate (Ventolin Neb Soln) 2.5 mg RTQID 09/10/19 08:00 09/17/19 19:12 2.5 MG Amiodarone HCl 450 mg/Dextrose 259 ml @ 17 mls/hr CONT PRN 09/10/19 09:00 09/11/19 02:33 17 MLS/HR Azithromycin (Zithromax) 250 mg DAILY 09/10/19 09:00 09/10/19 13:35 DC 09/10/19 08:38 250 MG Bisacodyl (Dulcolax Supp) 10 mg PRN DAILY PRN 09/10/19 10:00 09/10/19 10:00 10 MG Calcium Chloride 12.5 meq/ Bicarbonate Dialysis Soln w/ out KCl 5,008.9286 ml @ 1,000 mls/hr Q5H1M 09/12/19 13:00 09/12/19 12:18 DC Calcium Chloride 12.5 meq/ Potassium Chloride 5 meq/ Bicarbonate Dialysis Soln w/ out KCl 5,011.4286 ml @ 1,000 mls/hr Q5H1M 09/17/19 12:00 09/17/19 18:33 DC 09/17/19 13:05 1,000 MLS/HR Ceftriaxone Sodium (Rocephin) 1 gm Q24H 09/10/19 12:00 09/10/19 13:35 DC 09/10/19 12:55 1 GM Daptomycin 320 mg/ Sodium Chloride 50 ml @ 100 mls/hr Q24H 09/13/19 08:00 09/17/19 08:26 100 MLS/HR Diltiazem HCl 125 mg/Dextrose 125 ml @ 0 mls/hr CONT PRN 09/10/19 06:30 09/11/19 05:40 10 MLS/HR Dutasteride (Avodart) 0.5 mg DAILY 09/10/19 09:00 09/15/19 08:09 0.5 MG Epinephrine HCl 4 mg/Sodium Chloride 254 ml @ 28.061 mls/ hr CONT PRN 09/11/19 15:45 09/13/19 15:56 DC Fentanyl Citrate (Fentanyl 600 Mcg/30 ml PUGGER HELPER) 600 mcg STK-MED ONCE 09/11/19 11:28 09/12/19 15:46 DC Fluconazole/ Sodium Chloride 50 ml @ 100 mls/hr Q24H 09/16/19 08:15 09/16/19 08:14 DC Furosemide (Lasix) 40 mg 1X ONCE 09/10/19 15:45 09/10/19 15:46 DC 09/10/19 16:38 40 MG Influenza Virus Vaccine Quadrival (Afluria Quad 2019-20 (3yr Up) Syringe) 0.5 ml ONCE ONCE 09/11/19 09:00 09/11/19 09:01 DC Lactobacillus Rhamnosus (Culturelle) 1 cap BID 09/10/19 09:00 09/12/19 09:15 DC 09/11/19 21:16 1 CAP Levofloxacin/ Dextrose 100 ml @ 100 mls/hr Q24H 09/12/19 09:00 09/17/19 08:26 100 MLS/HR Lidocaine HCl (Buffered Lidocaine 1%) 3 ml 1X ONCE 09/11/19 17:15 09/11/19 17:16 DC 09/11/19 17:14 3 ML Lidocaine HCl (Lta Kit) 4 ml STK-MED ONCE 09/10/19 16:00 09/12/19 09:29 DC Lorazepam (Ativan Inj) 0.5 mg 1X ONCE 09/10/19 11:45 09/10/19 11:47 DC 09/10/19 11:48 0.5 MG Meropenem 500 mg/ Sodium Chloride 50 ml @ 100 mls/hr Q12H 09/15/19 21:00 09/17/19 20:42 100 MLS/HR Methylprednisolone Sodium Succinate (SOLU-Medrol 40MG VIAL) 40 mg Q12HR 09/16/19 21:00 09/17/19 20:42 40 MG Midazolam HCl 100 ml @ 0 mls/hr CONT PRN 09/11/19 10:15 09/17/19 22:50 5 MLS/HR Morphine Sulfate (Morphine Sulfate) 4 mg PRN Q2HR PRN 09/10/19 21:15 09/11/19 20:31 4 MG Naproxen (Naprosyn) 500 mg PRN BID PRN 09/10/19 06:30 09/12/19 11:01 DC Norepinephrine Bitartrate 250 ml @ 13.81 mls/ hr CONT PRN 09/11/19 10:45 09/17/19 15:15 1.795 MLS/HR Pantoprazole Sodium (PROTONIX VIAL for IV PUSH) 40 mg DAILYAC 09/12/19 12:00 09/17/19 07:28 40 MG Phytonadione (Vitamin K Ampule) 10 mg 1X ONCE 09/16/19 08:45 09/16/19 08:46 UNV Phytonadione 1 mg/ Dextrose 50.1 ml @ 102 mls/hr 1X ONCE 09/12/19 17:00 09/12/19 17:29 DC 09/12/19 17:07 102 MLS/HR Piperacillin Sod/ Tazobactam Sod 3.375 gm/Sodium Chloride 50 ml @ 100 mls/hr 1X ONCE 09/13/19 22:00 09/13/19 22:29 DC 09/13/19 22:27 100 MLS/HR Potassium Chloride 10 meq/ Bicarbonate Dialysis Soln w/ out KCl 5,005 ml @ 1,000 mls/hr Q5H1M 09/12/19 13:00 09/13/19 08:36 DC 09/13/19 06:05 1,000 MLS/HR Potassium Chloride 15 meq/ Bicarbonate Dialysis Soln w/ out KCl 5,007.5 ml @ 1,000 mls/ hr Q5H1M 09/17/19 16:00 09/18/19 04:52 1,000 MLS/HR Potassium Chloride 20 meq/ Bicarbonate Dialysis Soln w/ out KCl 5,010 ml @ 1,000 mls/hr Q5H1M 09/15/19 13:45 09/17/19 07:39 DC 09/17/19 02:18 1,000 MLS/HR Propofol 100 ml @ 0 mls/hr CONT PRN 09/11/19 10:15 09/13/19 15:56 DC Sodium Bicarbonate 100 meq/Dextrose 1,100 ml @ 75 mls/hr [id number] 09/11/19 09:00 09/13/19 15:56 DC 09/13/19 06:03 75 MLS/HR Sodium Bicarbonate (Sodium Bicarb Adult 8.4% Syr) 100 meq 1X ONCE 09/11/19 11:15 09/11/19 11:16 DC 09/11/19 11:28 100 MEQ Sodium Chloride 500 ml @ 500 mls/hr 1X ONCE 09/11/19 21:15 09/11/19 22:14 DC 09/11/19 21:21 500 MLS/HR Sodium Chloride (Normal Saline Flush) 10 ml QSHIFT PRN 09/10/19 07:00 Succinylcholine Chloride (Anectine) 200 mg STK-MED ONCE 09/11/19 10:57 09/11/19 10:57 DC Vancomycin HCl (Vanco Per Pharmacy) 1 each PRN DAILY PRN 09/10/19 14:00 09/11/19 07:59 DC 09/10/19 16:55 1 EACH Vancomycin HCl (Vancomycin Trough Level) 1 each 1X ONCE 09/12/19 16:00 09/11/19 08:01 DC Vancomycin HCl 1.5 gm/Sodium Chloride 500 ml @ 250 mls/hr 1X ONCE 09/10/19 14:00 09/10/19 15:59 DC 09/10/19 16:39 250 MLS/HR Vancomycin HCl 1 gm/Sodium Chloride 250 ml @ 250 mls/hr Q24H 09/11/19 16:30 09/11/19 07:59 DC Vasopressin 40 unit/Dextrose 102 ml @ 6 mls/hr CONT PRN 09/11/19 11:30 09/16/19 22:52 6 MLS/HR Labs: Lab Laboratory Tests Test 09/17/19 11:45 09/17/19 18:17 09/18/19 00:10 09/18/19 06:05 White Blood Count 17.7 x10^3/uL (4.0-11.0) 20.6 x10^3/uL (4.0-11.0) 19.5 x10^3/uL (4.0-11.0) Red Blood Count 4.16 x10^6/uL (4.30-5.70) 4.21 x10^6/uL (4.30-5.70) 4.42 x10^6/uL (4.30-5.70) Hemoglobin 9.9 g/dL (13.0-17.5) 10.0 g/dL (13.0-17.5) 10.6 g/dL (13.0-17.5) Hematocrit 30.9 % (39.0-53.0) 31.2 % (39.0-53.0) 32.8 % (39.0-53.0) Mean Corpuscular Volume 74 fL (79-100) 74 fL (79-100) 74 fL (79-100) Mean Corpuscular Hemoglobin 24 pg (25-35) 24 pg (25-35) 24 pg (25-35) Mean Corpuscular Hemoglobin Concent 32 g/dL (31-37) 32 g/dL (31-37) 32 g/dL (31-37) Red Cell Distribution Width 19.0 % (11.5-14.5) 19.2 % (11.5-14.5) 18.9 % (11.5-14.5) Platelet Count 27 x10^3/uL (140-400) 36 x10^3/uL (140-400) 38 x10^3/uL (140-400) Neutrophils (%) (Auto) 98 % (31-73) 97 % (31-73) Lymphocytes (%) (Auto) 1 % (24-48) 1 % (24-48) Monocytes (%) (Auto) 1 % (0-9) 1 % (0-9) Eosinophils (%) (Auto) 0 % (0-3) 1 % (0-3) Basophils (%) (Auto) 0 % (0-3) 0 % (0-3) Neutrophils # (Auto) 17.3 x10^3/uL (1.8-7.7) 20.1 x10^3/uL (1.8-7.7) Lymphocytes # (Auto) 0.2 x10^3/uL (1.0-4.8) 0.3 x10^3/uL (1.0-4.8) Monocytes # (Auto) 0.1 x10^3/uL (0.0-1.1) 0.2 x10^3/uL (0.0-1.1) Eosinophils # (Auto) 0.1 x10^3/uL (0.0-0.7) 0.1 x10^3/uL (0.0-0.7) Basophils # (Auto) 0.0 x10^3/uL (0.0-0.2) 0.0 x10^3/uL (0.0-0.2) Sodium Level 141 mmol/L (136-145) 141 mmol/L (136-145) 141 mmol/L (136-145) 141 mmol/L (136-145) Potassium Level 5.0 mmol/L (3.5-5.1) 4.9 mmol/L (3.5-5.1) 5.0 mmol/L (3.5-5.1) 5.0 mmol/L (3.5-5.1) Chloride Level 106 mmol/L (98-107) 106 mmol/L (98-107) 108 mmol/L (98-107) 106 mmol/L (98-107) Carbon Dioxide Level 27 mmol/L (21-32) 28 mmol/L (21-32) 28 mmol/L (21-32) 26 mmol/L (21-32) Anion Gap 8 (6-14) 7 (6-14) 5 (6-14) 9 (6-14) Blood Urea Nitrogen 35 mg/dL (8-26) 36 mg/dL (8-26) 35 mg/dL (8-26) 33 mg/dL (8-26) Creatinine 1.3 mg/dL (0.7-1.3) 1.3 mg/dL (0.7-1.3) 1.2 mg/dL (0.7-1.3) 1.1 mg/dL (0.7-1.3) Estimated GFR (Cockcroft-Gault) 53.4 53.4 58.6 64.7 BUN/Creatinine Ratio 27 (6-20) 28 (6-20) 30 (6-20) Glucose Level 201 mg/dL (70-99) 173 mg/dL (70-99) 151 mg/dL (70-99) 152 mg/dL (70-99) Calcium Level 7.0 mg/dL (8.5-10.1) 7.0 mg/dL (8.5-10.1) 7.3 mg/dL (8.5-10.1) 7.4 mg/dL (8.5-10.1) Phosphorus Level 4.1 mg/dL (2.6-4.7) 3.8 mg/dL (2.6-4.7) 4.0 mg/dL (2.6-4.7) 3.9 mg/dL (2.6-4.7) Magnesium Level 2.7 mg/dL (1.8-2.4) 2.5 mg/dL (1.8-2.4) 2.7 mg/dL (1.8-2.4) 2.7 mg/dL (1.8-2.4) Total Bilirubin 11.9 mg/dL (0.2-1.0) 12.9 mg/dL (0.2-1.0) 14.4 mg/dL (0.2-1.0) Aspartate Amino Transf (AST/SGOT) 267 U/L (15-37) 253 U/L (15-37) 261 U/L (15-37) Alanine Aminotransferase (ALT/SGPT) 788 U/L (16-63) 766 U/L (16-63) 694 U/L (16-63) Alkaline Phosphatase 109 U/L (46-116) 120 U/L (46-116) 129 U/L (46-116) Total Protein 4.9 g/dL (6.4-8.2) 5.0 g/dL (6.4-8.2) 5.3 g/dL (6.4-8.2) Albumin 1.8 g/dL (3.4-5.0) 1.8 g/dL (3.4-5.0) 1.8 g/dL (3.4-5.0) Albumin/Globulin Ratio 0.6 (1.0-1.7) 0.6 (1.0-1.7) 0.5 (1.0-1.7) Micro reviewed bc neg throat c/s neg sputum neg Objective: Assessment: Pt with multiorgan failure 1. Respiratory failure. Pulmonary infiltrate. likely respiratory infection though w/u neg with acute respiratory distress syndrome.on empiric broad spectrum, sputum c/s neg, RVP neg, legionella neg 2. Leukocytosis.reactive 3 Acute kidney injury, multifactorial from hypotension on CRRT 4. 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 DIC 6 History of rheumatoid arthritis, had been on naproxen. 7 .A fib with RVR and Circulatory failure. 8. Thrombocytopenia from DIC 9. GI Bleed 10. Encephalopathy metabolic Plan: Plan of Care cont merrem ( 09/15);was on zosyn, dc due to thrombocytopenia from dic cont empiric levaquin and dapto cont supportive care f/u c/s and labs f/u cmv and ebv serologies though clinically less likely less likely coccidiodes but with recent travel to [place] will obtain serologies,per pt had symptoms before they left for [place] Condition critical prognosis very poor D/W Nursing staff ENMANUEL GAN MD Sep 18, 2019 07:30
[2019-09-18] MEDS: ALBUTEROL SULFATE 2.5 MG/3 ML NEBU. NEB SCH ×4 (07:45→19:43)
[2019-09-18] MEDS: DAPTOmycin (GENERIC) IVPB 320 MG in IV NORMAL SALINE 50ML 50 ML IV SCH (08:14)
[2019-09-18] MEDS: PANTOPRAZOLE IV PUSH 40 MG VIAL. IVP SCH (08:14)
[2019-09-18] MEDS: DUTASTERIDE 0.5 MG CAPSULE PO SCH (09:00)
--- NOTE | 2019-09-18 09:33 | PDOC ---
PULMONARY PROGRESS NOTES Subjective INTUBATED 09/11 BY ANESTHESIA on AC MODE UNDERGOING CRRT Vitals Vital Signs Date Time Temp Pulse Resp B/P (MAP) Pulse Ox O2 Delivery O2 Flow Rate FiO2 09/18/19 07:56 100 15.0 09/18/19 07:46 Ventilator 09/18/19 06:00 89 20 101/55 (70) 09/18/19 04:00 96.9 96.9 HEENT: Other Lungs: Crackles Cardiovascular: S1, S2 Abdomen: Soft, Non-tender, Other Extremities: Other (EDEMA) Skin: Warm Labs Laboratory Tests Test 09/16/19 11:35 09/16/19 16:05 09/16/19 22:50 09/17/19 06:10 White Blood Count 21.3 x10^3/uL (4.0-11.0) 20.0 x10^3/uL (4.0-11.0) 17.4 x10^3/uL (4.0-11.0) Red Blood Count 4.05 x10^6/uL (4.30-5.70) 3.92 x10^6/uL (4.30-5.70) 4.28 x10^6/uL (4.30-5.70) Hemoglobin 9.5 g/dL (13.0-17.5) 9.4 g/dL (13.0-17.5) 10.0 g/dL (13.0-17.5) Hematocrit 29.7 % (39.0-53.0) 28.9 % (39.0-53.0) 31.9 % (39.0-53.0) Mean Corpuscular Volume 73 fL (79-100) 74 fL (79-100) 75 fL (79-100) Mean Corpuscular Hemoglobin 23 pg (25-35) 24 pg (25-35) 23 pg (25-35) Mean Corpuscular Hemoglobin Concent 32 g/dL (31-37) 32 g/dL (31-37) 32 g/dL (31-37) Red Cell Distribution Width 18.5 % (11.5-14.5) 18.3 % (11.5-14.5) 19.5 % (11.5-14.5) Platelet Count 32 x10^3/uL (140-400) 27 x10^3/uL (140-400) 26 x10^3/uL (140-400) Neutrophils (%) (Auto) 97 % (31-73) 98 % (31-73) Lymphocytes (%) (Auto) 1 % (24-48) 1 % (24-48) Monocytes (%) (Auto) 1 % (0-9) 0 % (0-9) Eosinophils (%) (Auto) 0 % (0-3) 0 % (0-3) Basophils (%) (Auto) 1 % (0-3) 1 % (0-3) Neutrophils # (Auto) 20.5 x10^3/uL (1.8-7.7) 16.9 x10^3/uL (1.8-7.7) Lymphocytes # (Auto) 0.3 x10^3/uL (1.0-4.8) 0.2 x10^3/uL (1.0-4.8) Monocytes # (Auto) 0.3 x10^3/uL (0.0-1.1) 0.1 x10^3/uL (0.0-1.1) Eosinophils # (Auto) 0.0 x10^3/uL (0.0-0.7) 0.0 x10^3/uL (0.0-0.7) Basophils # (Auto) 0.2 x10^3/uL (0.0-0.2) 0.1 x10^3/uL (0.0-0.2) Prothrombin Time 25.4 SEC (11.7-14.0) Prothromb Time International Ratio 2.3 (0.8-1.1) Activated Partial Thromboplast Time 34 SEC (24-38) Fibrinogen 124 mg/dL (200-440) Sodium Level 143 mmol/L (136-145) 143 mmol/L (136-145) 142 mmol/L (136-145) 142 mmol/L (136-145) Potassium Level 4.7 mmol/L (3.5-5.1) 5.0 mmol/L (3.5-5.1) 4.9 mmol/L (3.5-5.1) 5.2 mmol/L (3.5-5.1) Chloride Level 109 mmol/L (98-107) 109 mmol/L (98-107) 109 mmol/L (98-107) 107 mmol/L (98-107) Carbon Dioxide Level 25 mmol/L (21-32) 23 mmol/L (21-32) 24 mmol/L (21-32) 24 mmol/L (21-32) Anion Gap 9 (6-14) 11 (6-14) 9 (6-14) 11 (6-14) Blood Urea Nitrogen 38 mg/dL (8-26) 36 mg/dL (8-26) 42 mg/dL (8-26) 39 mg/dL (8-26) Creatinine 1.6 mg/dL (0.7-1.3) 1.4 mg/dL (0.7-1.3) 1.6 mg/dL (0.7-1.3) 1.4 mg/dL (0.7-1.3) Estimated GFR (Cockcroft-Gault) 42.0 49.0 42.0 49.0 BUN/Creatinine Ratio 24 (6-20) 26 (6-20) 26 (6-20) 28 (6-20) Glucose Level 226 mg/dL (70-99) 212 mg/dL (70-99) 228 mg/dL (70-99) 206 mg/dL (70-99) Calcium Level 7.1 mg/dL (8.5-10.1) 6.9 mg/dL (8.5-10.1) 7.0 mg/dL (8.5-10.1) 7.3 mg/dL (8.5-10.1) Phosphorus Level 3.5 mg/dL (2.6-4.7) 3.6 mg/dL (2.6-4.7) 4.1 mg/dL (2.6-4.7) 4.2 mg/dL (2.6-4.7) Magnesium Level 2.6 mg/dL (1.8-2.4) 2.5 mg/dL (1.8-2.4) 2.6 mg/dL (1.8-2.4) 2.9 mg/dL (1.8-2.4) Total Bilirubin 10.1 mg/dL (0.2-1.0) 10.0 mg/dL (0.2-1.0) 10.4 mg/dL (0.2-1.0) 11.7 mg/dL (0.2-1.0) Aspartate Amino Transf (AST/SGOT) 375 U/L (15-37) 341 U/L (15-37) 290 U/L (15-37) 287 U/L (15-37) Alanine Aminotransferase (ALT/SGPT) 946 U/L (16-63) 888 U/L (16-63) 825 U/L (16-63) 835 U/L (16-63) Alkaline Phosphatase 104 U/L (46-116) 98 U/L (46-116) 102 U/L (46-116) 114 U/L (46-116) Total Protein 4.6 g/dL (6.4-8.2) 4.5 g/dL (6.4-8.2) 4.6 g/dL (6.4-8.2) 5.2 g/dL (6.4-8.2) Albumin 1.7 g/dL (3.4-5.0) 1.6 g/dL (3.4-5.0) 1.6 g/dL (3.4-5.0) 1.7 g/dL (3.4-5.0) Albumin/Globulin Ratio 0.6 (1.0-1.7) 0.6 (1.0-1.7) 0.5 (1.0-1.7) 0.5 (1.0- 1.7) Test 09/17/19 11:45 09/17/19 18:17 09/18/19 00:10 09/18/19 06:05 White Blood Count 17.7 x10^3/uL (4.0-11.0) 20.6 x10^3/uL (4.0-11.0) 19.5 x10^3/uL (4.0-11.0) Red Blood Count 4.16 x10^6/uL (4.30-5.70) 4.21 x10^6/uL (4.30-5.70) 4.42 x10^6/uL (4.30-5.70) Hemoglobin 9.9 g/dL (13.0-17.5) 10.0 g/dL (13.0-17.5) 10.6 g/dL (13.0-17.5) Hematocrit 30.9 % (39.0-53.0) 31.2 % (39.0-53.0) 32.8 % (39.0-53.0) Mean Corpuscular Volume 74 fL (79-100) 74 fL (79-100) 74 fL (79-100) Mean Corpuscular Hemoglobin 24 pg (25-35) 24 pg (25-35) 24 pg (25-35) Mean Corpuscular Hemoglobin Concent 32 g/dL (31-37) 32 g/dL (31-37) 32 g/dL (31-37) Red Cell Distribution Width 19.0 % (11.5-14.5) 19.2 % (11.5-14.5) 18.9 % (11.5-14.5) Platelet Count 27 x10^3/uL (140-400) 36 x10^3/uL (140-400) 38 x10^3/uL (140-400) Neutrophils (%) (Auto) 98 % (31-73) 97 % (31-73) Lymphocytes (%) (Auto) 1 % (24-48) 1 % (24-48) Monocytes (%) (Auto) 1 % (0-9) 1 % (0-9) Eosinophils (%) (Auto) 0 % (0-3) 1 % (0-3) Basophils (%) (Auto) 0 % (0-3) 0 % (0-3) Neutrophils # (Auto) 17.3 x10^3/uL (1.8-7.7) 20.1 x10^3/uL (1.8-7.7) Lymphocytes # (Auto) 0.2 x10^3/uL (1.0-4.8) 0.3 x10^3/uL (1.0-4.8) Monocytes # (Auto) 0.1 x10^3/uL (0.0-1.1) 0.2 x10^3/uL (0.0-1.1) Eosinophils # (Auto) 0.1 x10^3/uL (0.0-0.7) 0.1 x10^3/uL (0.0-0.7) Basophils # (Auto) 0.0 x10^3/uL (0.0-0.2) 0.0 x10^3/uL (0.0-0.2) Sodium Level 141 mmol/L (136-145) 141 mmol/L (136-145) 141 mmol/L (136-145) 141 mmol/L (136-145) Potassium Level 5.0 mmol/L (3.5-5.1) 4.9 mmol/L (3.5-5.1) 5.0 mmol/L (3.5-5.1) 5.0 mmol/L (3.5-5.1) Chloride Level 106 mmol/L (98-107) 106 mmol/L (98-107) 108 mmol/L (98-107) 106 mmol/L (98-107) Carbon Dioxide Level 27 mmol/L (21-32) 28 mmol/L (21-32) 28 mmol/L (21-32) 26 mmol/L (21-32) Anion Gap 8 (6-14) 7 (6-14) 5 (6-14) 9 (6-14) Blood Urea Nitrogen 35 mg/dL (8-26) 36 mg/dL (8-26) 35 mg/dL (8-26) 33 mg/dL (8-26) Creatinine 1.3 mg/dL (0.7-1.3) 1.3 mg/dL (0.7-1.3) 1.2 mg/dL (0.7-1.3) 1.1 mg/dL (0.7-1.3) Estimated GFR (Cockcroft-Gault) 53.4 53.4 58.6 64.7 BUN/Creatinine Ratio 27 (6-20) 28 (6-20) 30 (6-20) Glucose Level 201 mg/dL (70-99) 173 mg/dL (70-99) 151 mg/dL (70-99) 152 mg/dL (70-99) Calcium Level 7.0 mg/dL (8.5-10.1) 7.0 mg/dL (8.5-10.1) 7.3 mg/dL (8.5-10.1) 7.4 mg/dL (8.5-10.1) Phosphorus Level 4.1 mg/dL (2.6-4.7) 3.8 mg/dL (2.6-4.7) 4.0 mg/dL (2.6-4.7) 3.9 mg/dL (2.6-4.7) Magnesium Level 2.7 mg/dL (1.8-2.4) 2.5 mg/dL (1.8-2.4) 2.7 mg/dL (1.8-2.4) 2.7 mg/dL (1.8-2.4) Total Bilirubin 11.9 mg/dL (0.2-1.0) 12.9 mg/dL (0.2-1.0) 14.4 mg/dL (0.2-1.0) Aspartate Amino Transf (AST/SGOT) 267 U/L (15-37) 253 U/L (15-37) 261 U/L (15-37) Alanine Aminotransferase (ALT/SGPT) 788 U/L (16-63) 766 U/L (16-63) 694 U/L (16-63) Alkaline Phosphatase 109 U/L (46-116) 120 U/L (46-116) 129 U/L (46-116) Total Protein 4.9 g/dL (6.4-8.2) 5.0 g/dL (6.4-8.2) 5.3 g/dL (6.4-8.2) Albumin 1.8 g/dL (3.4-5.0) 1.8 g/dL (3.4-5.0) 1.8 g/dL (3.4-5.0) Albumin/Globulin Ratio 0.6 (1.0-1.7) 0.6 (1.0-1.7) 0.5 (1.0-1.7) Laboratory Tests Test 09/17/19 11:45 09/17/19 18:17 09/18/19 00:10 09/18/19 06:05 White Blood Count 17.7 x10^3/uL (4.0-11.0) 20.6 x10^3/uL (4.0-11.0) 19.5 x10^3/uL (4.0-11.0) Red Blood Count 4.16 x10^6/uL (4.30-5.70) 4.21 x10^6/uL (4.30-5.70) 4.42 x10^6/uL (4.30-5.70) Hemoglobin 9.9 g/dL (13.0-17.5) 10.0 g/dL (13.0-17.5) 10.6 g/dL (13.0-17.5) Hematocrit 30.9 % (39.0-53.0) 31.2 % (39.0-53.0) 32.8 % (39.0-53.0) Mean Corpuscular Volume 74 fL (79-100) 74 fL (79-100) 74 fL (79-100) Mean Corpuscular Hemoglobin 24 pg (25-35) 24 pg (25-35) 24 pg (25-35) Mean Corpuscular Hemoglobin Concent 32 g/dL (31-37) 32 g/dL (31-37) 32 g/dL (31-37) Red Cell Distribution Width 19.0 % (11.5-14.5) 19.2 % (11.5-14.5) 18.9 % (11.5-14.5) Platelet Count 27 x10^3/uL (140-400) 36 x10^3/uL (140-400) 38 x10^3/uL (140-400) Neutrophils (%) (Auto) 98 % (31-73) 97 % (31-73) Lymphocytes (%) (Auto) 1 % (24-48) 1 % (24-48) Monocytes (%) (Auto) 1 % (0-9) 1 % (0-9) Eosinophils (%) (Auto) 0 % (0-3) 1 % (0-3) Basophils (%) (Auto) 0 % (0-3) 0 % (0-3) Neutrophils # (Auto) 17.3 x10^3/uL (1.8-7.7) 20.1 x10^3/uL (1.8-7.7) Lymphocytes # (Auto) 0.2 x10^3/uL (1.0-4.8) 0.3 x10^3/uL (1.0-4.8) Monocytes # (Auto) 0.1 x10^3/uL (0.0-1.1) 0.2 x10^3/uL (0.0-1.1) Eosinophils # (Auto) 0.1 x10^3/uL (0.0-0.7) 0.1 x10^3/uL (0.0-0.7) Basophils # (Auto) 0.0 x10^3/uL (0.0-0.2) 0.0 x10^3/uL (0.0-0.2) Sodium Level 141 mmol/L (136-145) 141 mmol/L (136-145) 141 mmol/L (136-145) 141 mmol/L (136-145) Potassium Level 5.0 mmol/L (3.5-5.1) 4.9 mmol/L (3.5-5.1) 5.0 mmol/L (3.5-5.1) 5.0 mmol/L (3.5-5.1) Chloride Level 106 mmol/L (98-107) 106 mmol/L (98-107) 108 mmol/L (98-107) 106 mmol/L (98-107) Carbon Dioxide Level 27 mmol/L (21-32) 28 mmol/L (21-32) 28 mmol/L (21-32) 26 mmol/L (21-32) Anion Gap 8 (6-14) 7 (6-14) 5 (6-14) 9 (6-14) Blood Urea Nitrogen 35 mg/dL (8-26) 36 mg/dL (8-26) 35 mg/dL (8-26) 33 mg/dL (8-26) Creatinine 1.3 mg/dL (0.7-1.3) 1.3 mg/dL (0.7-1.3) 1.2 mg/dL (0.7-1.3) 1.1 mg/dL (0.7-1.3) Estimated GFR (Cockcroft-Gault) 53.4 53.4 58.6 64.7 BUN/Creatinine Ratio 27 (6-20) 28 (6-20) 30 (6-20) Glucose Level 201 mg/dL (70-99) 173 mg/dL (70-99) 151 mg/dL (70-99) 152 mg/dL (70-99) Calcium Level 7.0 mg/dL (8.5-10.1) 7.0 mg/dL (8.5-10.1) 7.3 mg/dL (8.5-10.1) 7.4 mg/dL (8.5-10.1) Phosphorus Level 4.1 mg/dL (2.6-4.7) 3.8 mg/dL (2.6-4.7) 4.0 mg/dL (2.6-4.7) 3.9 mg/dL (2.6-4.7) Magnesium Level 2.7 mg/dL (1.8-2.4) 2.5 mg/dL (1.8-2.4) 2.7 mg/dL (1.8-2.4) 2.7 mg/dL (1.8-2.4) Total Bilirubin 11.9 mg/dL (0.2-1.0) 12.9 mg/dL (0.2-1.0) 14.4 mg/dL (0.2-1.0) Aspartate Amino Transf (AST/SGOT) 267 U/L (15-37) 253 U/L (15-37) 261 U/L (15-37) Alanine Aminotransferase (ALT/SGPT) 788 U/L (16-63) 766 U/L (16-63) 694 U/L (16-63) Alkaline Phosphatase 109 U/L (46-116) 120 U/L (46-116) 129 U/L (46-116) Total Protein 4.9 g/dL (6.4-8.2) 5.0 g/dL (6.4-8.2) 5.3 g/dL (6.4-8.2) Albumin 1.8 g/dL (3.4-5.0) 1.8 g/dL (3.4-5.0) 1.8 g/dL (3.4-5.0) Albumin/Globulin Ratio 0.6 (1.0-1.7) 0.6 (1.0-1.7) 0.5 (1.0-1.7) Medications Active Scripts Medications Dose Route/Sig Max Daily Dose Days Date Category Naproxen 500 Mg Tablet 1 Tab PO PRN BID PRN 30 10/14/19 Reported Avodart (Dutasteride) 0.5 Mg Capsule 1 Cap PO DAILY 09/10/19 Reported Impression . IMPRESSION: 1. Acute hypoxemic respiratory failure/ARDS 2. SEPTIC SHOCK 3. Abnormal CT chest revealing bilateral pulmonary infiltrates. 4. Pneumonia, suspect gram-negative, gram-positive. 5. Possible acute pulmonary edema. 6. Possible interstitial lung disease/pulmonary fibrosis. 7. History of rheumatoid arthritis. 8. Atrial fibrillation with rapid ventricular response. 9. ACUTE MET ACIDOSIS, resolved, now resp alkalosis 10. ACUTE RENAL FAILURE CXR IMPRESSION: Interstitial pulmonary edema or atypical/viral infection. Stable position of lines and tubes. Plan . WILL HOLD SEDATION AND TRIAL ONCE AWAKE REPEAT CXR RESTART TUBE FEEDING 3 ON 3 HOURS OFF CRRT ANTIBX PER ID DVT AND GI PROPH STEROIDS DECREASE CCT 30 MIN D/W RN AND RT D/W FAMILY AT BEDSIDE VIRGEN ROME MD Sep 18, 2019 09:33
--- NOTE | 2019-09-18 11:31 | PN ---
DATE: 09/18/2019 SUBJECTIVE: The patient continues to be sedated, heavily intubated, and mechanically ventilated. He continued to be on FiO2 of 40% with a PEEP of 5, continuous renal replacement therapy. He was restarted on tube feeding at 20 mL per hour. His liver enzymes are fluctuating. His bilirubin, however, continued to rise dramatically from 1.4-14.4. His prothrombin time was 25.4, INR of 2.3, aPTT was 34, and fibrinogen was 124. His platelet count slightly up 38,000. He continued to be obviously completely oliguric. ASSESSMENT: 1. Acute hypoxic respiratory failure/acute respiratory distress syndrome. 2. Septic shock, requiring vasopressors, IV antibiotics. 3. Community-acquired pneumonia. 4. Acute kidney injury, likely due to acute tubular necrosis secondary to sepsis. He continues to be completely anuric, currently on continuous renal replacement therapy and tolerating it well. 5. Hypotension for which he continues to be on Levophed. His vasopressin and epinephrine were discontinued. 6. Deranged liver enzymes. The alkaline phosphatase, AST, ALT is slightly elevated; however, the total bilirubin continued to be rising and today was 14.4. 7. Rheumatoid arthritis. 8. Possible interstitial lung disease and pulmonary fibrosis. 9. Atrial fibrillation with rapid ventricular response for which he was cardioverted. 10. Thrombocytopenia that has plateaued and today is actually higher at 38,000. 11. Leukocytosis are edging up again down to 17,000 yesterday and today it was up to 20,011. He has an episode of lower gastrointestinal bleeding; however, his hemoglobin and hematocrit have remained stable. 12. High gastric residual for which his tub feed was on hold. In fact, it was restarted again last night. PLAN: To continue with mechanical ventilation and obviously wean as tolerated. His FiO2 was 40% and PEEP was only 5 to continue with Levophed to support his blood pressure. Continue with continuous renal replacement therapy. Continue IV antibiotic. Continue with Versed and fentanyl for sedation. Continue with IV Solu-Medrol. INGRIS FINCH MD DR: JOSIANE/jose JOB#: [id number] / [id number]
--- NOTE | 2019-09-18 11:44 | PDOC ---
SUBJECTIVE ROS Intubated, On Vasopressin OBJECTIVE Vital Signs Vital Signs Date Time Temp Pulse Resp B/P (MAP) Pulse Ox O2 Delivery O2 Flow Rate FiO2 09/18/19 11:22 100 Ventilator 09/18/19 11:00 97 20 108/58 (75) 09/18/19 10:00 97.1 97.1 09/18/19 07:56 15.0 I & 0 Intake and Output 09/18/19 06:59 Intake Total 80504.2 ml Output Total 15 ml Balance 13982.2 ml IV Total 77986.2 ml Tube Feeding 669 ml Other 400 ml Output Urine Total 15 ml Gastric Drainage Total 0 ml # Bowel Movements 4 PHYSICAL EXAM Physical Exam GENERAL: orally intubated on vent HEENT: Both pupils are round and reacting. Orally intubated NECK: Supple, LUNGS: Clear. HEART: S1, S2 regular. ABDOMEN: Soft, EXTREMITIES: No edema, cyanosis. SKIN: Unremarkable. 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 Pneumonia Possible interstitial lung disease/pulmonary fibrosis. History of rheumatoid arthritis. Atrial fibrillation with rapid ventricular response. Cardioverted Discussed with family and RN at bedside COMMENT/RELEVANT DATA Meds Current Medications Medications (Trade) Dose Ordered Sig/Veena Start Time Stop Time Status Last Admin Dose Admin Albuterol Sulfate (Ventolin Neb Soln) 2.5 mg RTQID 09/10/19 08:00 09/18/19 11:22 2.5 MG Amiodarone HCl 450 mg/Dextrose 259 ml @ 17 mls/hr CONT PRN 09/10/19 09:00 09/11/19 02:33 17 MLS/HR Azithromycin (Zithromax) 250 mg DAILY 09/10/19 09:00 09/10/19 13:35 DC 09/10/19 08:38 250 MG Bisacodyl (Dulcolax Supp) 10 mg PRN DAILY PRN 09/10/19 10:00 09/10/19 10:00 10 MG Calcium Chloride 12.5 meq/ Bicarbonate Dialysis Soln w/ out KCl 5,008.9286 ml @ 1,000 mls/hr Q5H1M 09/12/19 13:00 09/12/19 12:18 DC Calcium Chloride 12.5 meq/ Potassium Chloride 5 meq/ Bicarbonate Dialysis Soln w/ out KCl 5,011.4286 ml @ 1,000 mls/hr Q5H1M 09/17/19 12:00 09/17/19 18:33 DC 09/17/19 13:05 1,000 MLS/HR Ceftriaxone Sodium (Rocephin) 1 gm Q24H 09/10/19 12:00 09/10/19 13:35 DC 09/10/19 12:55 1 GM Daptomycin 320 mg/ Sodium Chloride 50 ml @ 100 mls/hr Q24H 09/13/19 08:00 09/18/19 08:14 100 MLS/HR Diltiazem HCl 125 mg/Dextrose 125 ml @ 0 mls/hr CONT PRN 09/10/19 06:30 09/11/19 05:40 10 MLS/HR Dutasteride (Avodart) 0.5 mg DAILY 09/10/19 09:00 09/15/19 08:09 0.5 MG Epinephrine HCl 4 mg/Sodium Chloride 254 ml @ 28.061 mls/ hr CONT PRN 09/11/19 15:45 09/13/19 15:56 DC Fentanyl Citrate (Fentanyl 600 Mcg/30 ml PRISON GUARD) 600 mcg STK-MED ONCE 09/11/19 11:28 09/12/19 15:46 DC Fluconazole/ Sodium Chloride 50 ml @ 100 mls/hr Q24H 09/16/19 08:15 09/16/19 08:14 DC Furosemide (Lasix) 40 mg 1X ONCE 09/10/19 15:45 09/10/19 15:46 DC 09/10/19 16:38 40 MG Influenza Virus Vaccine Quadrival (Afluria Quad 2019-20 (3yr Up) Syringe) 0.5 ml ONCE ONCE 09/11/19 09:00 09/11/19 09:01 DC Lactobacillus Rhamnosus (Culturelle) 1 cap BID 09/10/19 09:00 09/12/19 09:15 DC 09/11/19 21:16 1 CAP Levofloxacin/ Dextrose 100 ml @ 100 mls/hr Q24H 09/12/19 09:00 09/17/19 08:26 100 MLS/HR Lidocaine HCl (Buffered Lidocaine 1%) 3 ml 1X ONCE 09/11/19 17:15 09/11/19 17:16 DC 09/11/19 17:14 3 ML Lidocaine HCl (Lta Kit) 4 ml STK-MED ONCE 09/10/19 16:00 09/12/19 09:29 DC Lorazepam (Ativan Inj) 0.5 mg 1X ONCE 09/10/19 11:45 09/10/19 11:47 DC 09/10/19 11:48 0.5 MG Meropenem 500 mg/ Sodium Chloride 50 ml @ 100 mls/hr Q12H 09/15/19 21:00 09/17/19 20:42 100 MLS/HR Methylprednisolone Sodium Succinate (SOLU-Medrol 40MG VIAL) 40 mg Q12HR 09/16/19 21:00 09/17/19 20:42 40 MG Midazolam HCl 100 ml @ 0 mls/hr CONT PRN 09/11/19 10:15 09/17/19 22:50 5 MLS/HR Morphine Sulfate (Morphine Sulfate) 4 mg PRN Q2HR PRN 09/10/19 21:15 09/11/19 20:31 4 MG Naproxen (Naprosyn) 500 mg PRN BID PRN 09/10/19 06:30 09/12/19 11:01 DC Norepinephrine Bitartrate 250 ml @ 13.81 mls/ hr CONT PRN 09/11/19 10:45 09/17/19 15:15 1.795 MLS/HR Pantoprazole Sodium (PROTONIX VIAL for IV PUSH) 40 mg DAILYAC 09/12/19 12:00 09/18/19 08:14 40 MG Phytonadione (Vitamin K Ampule) 10 mg 1X ONCE 09/16/19 08:45 09/16/19 08:46 UNV Phytonadione 1 mg/ Dextrose 50.1 ml @ 102 mls/hr 1X ONCE 09/12/19 17:00 09/12/19 17:29 DC 09/12/19 17:07 102 MLS/HR Piperacillin Sod/ Tazobactam Sod 3.375 gm/Sodium Chloride 50 ml @ 100 mls/hr 1X ONCE 09/13/19 22:00 09/13/19 22:29 DC 09/13/19 22:27 100 MLS/HR Potassium Chloride 10 meq/ Bicarbonate Dialysis Soln w/ out KCl 5,005 ml @ 1,000 mls/hr Q5H1M 09/12/19 13:00 09/13/19 08:36 DC 09/13/19 06:05 1,000 MLS/HR Potassium Chloride 15 meq/ Bicarbonate Dialysis Soln w/ out KCl 5,007.5 ml @ 1,000 mls/ hr Q5H1M 09/17/19 16:00 09/18/19 10:28 1,000 MLS/HR Potassium Chloride 20 meq/ Bicarbonate Dialysis Soln w/ out KCl 5,010 ml @ 1,000 mls/hr Q5H1M 09/15/19 13:45 09/17/19 07:39 DC 09/17/19 02:18 1,000 MLS/HR Propofol 100 ml @ 0 mls/hr CONT PRN 09/11/19 10:15 09/13/19 15:56 DC Sodium Bicarbonate 100 meq/Dextrose 1,100 ml @ 75 mls/hr [id number] 09/11/19 09:00 09/13/19 15:56 DC 09/13/19 06:03 75 MLS/HR Sodium Bicarbonate (Sodium Bicarb Adult 8.4% Syr) 100 meq 1X ONCE 09/11/19 11:15 09/11/19 11:16 DC 09/11/19 11:28 100 MEQ Sodium Chloride 500 ml @ 500 mls/hr 1X ONCE 09/11/19 21:15 09/11/19 22:14 DC 09/11/19 21:21 500 MLS/HR Sodium Chloride (Normal Saline Flush) 10 ml QSHIFT PRN 09/10/19 07:00 Succinylcholine Chloride (Anectine) 200 mg STK-MED ONCE 09/11/19 10:57 09/11/19 10:57 DC Vancomycin HCl (Vanco Per Pharmacy) 1 each PRN DAILY PRN 09/10/19 14:00 09/11/19 07:59 DC 09/10/19 16:55 1 EACH Vancomycin HCl (Vancomycin Trough Level) 1 each 1X ONCE 09/12/19 16:00 09/11/19 08:01 DC Vancomycin HCl 1.5 gm/Sodium Chloride 500 ml @ 250 mls/hr 1X ONCE 09/10/19 14:00 09/10/19 15:59 DC 09/10/19 16:39 250 MLS/HR Vancomycin HCl 1 gm/Sodium Chloride 250 ml @ 250 mls/hr Q24H 09/11/19 16:30 09/11/19 07:59 DC Vasopressin 40 unit/Dextrose 102 ml @ 6 mls/hr CONT PRN 09/11/19 11:30 09/16/19 22:52 6 MLS/HR Lab Laboratory Tests Test 09/17/19 11:45 09/17/19 18:17 09/18/19 00:10 09/18/19 06:05 White Blood Count 17.7 x10^3/uL (4.0-11.0) 20.6 x10^3/uL (4.0-11.0) 19.5 x10^3/uL (4.0-11.0) Red Blood Count 4.16 x10^6/uL (4.30-5.70) 4.21 x10^6/uL (4.30-5.70) 4.42 x10^6/uL (4.30-5.70) Hemoglobin 9.9 g/dL (13.0-17.5) 10.0 g/dL (13.0-17.5) 10.6 g/dL (13.0-17.5) Hematocrit 30.9 % (39.0-53.0) 31.2 % (39.0-53.0) 32.8 % (39.0-53.0) Mean Corpuscular Volume 74 fL (79-100) 74 fL (79-100) 74 fL (79-100) Mean Corpuscular Hemoglobin 24 pg (25-35) 24 pg (25-35) 24 pg (25-35) Mean Corpuscular Hemoglobin Concent 32 g/dL (31-37) 32 g/dL (31-37) 32 g/dL (31-37) Red Cell Distribution Width 19.0 % (11.5-14.5) 19.2 % (11.5-14.5) 18.9 % (11.5-14.5) Platelet Count 27 x10^3/uL (140-400) 36 x10^3/uL (140-400) 38 x10^3/uL (140-400) Neutrophils (%) (Auto) 98 % (31-73) 97 % (31-73) Lymphocytes (%) (Auto) 1 % (24-48) 1 % (24-48) Monocytes (%) (Auto) 1 % (0-9) 1 % (0-9) Eosinophils (%) (Auto) 0 % (0-3) 1 % (0-3) Basophils (%) (Auto) 0 % (0-3) 0 % (0-3) Neutrophils # (Auto) 17.3 x10^3/uL (1.8-7.7) 20.1 x10^3/uL (1.8-7.7) Lymphocytes # (Auto) 0.2 x10^3/uL (1.0-4.8) 0.3 x10^3/uL (1.0-4.8) Monocytes # (Auto) 0.1 x10^3/uL (0.0-1.1) 0.2 x10^3/uL (0.0-1.1) Eosinophils # (Auto) 0.1 x10^3/uL (0.0-0.7) 0.1 x10^3/uL (0.0-0.7) Basophils # (Auto) 0.0 x10^3/uL (0.0-0.2) 0.0 x10^3/uL (0.0-0.2) Sodium Level 141 mmol/L (136-145) 141 mmol/L (136-145) 141 mmol/L (136-145) 141 mmol/L (136-145) Potassium Level 5.0 mmol/L (3.5-5.1) 4.9 mmol/L (3.5-5.1) 5.0 mmol/L (3.5-5.1) 5.0 mmol/L (3.5-5.1) Chloride Level 106 mmol/L (98-107) 106 mmol/L (98-107) 108 mmol/L (98-107) 106 mmol/L (98-107) Carbon Dioxide Level 27 mmol/L (21-32) 28 mmol/L (21-32) 28 mmol/L (21-32) 26 mmol/L (21-32) Anion Gap 8 (6-14) 7 (6-14) 5 (6-14) 9 (6-14) Blood Urea Nitrogen 35 mg/dL (8-26) 36 mg/dL (8-26) 35 mg/dL (8-26) 33 mg/dL (8-26) Creatinine 1.3 mg/dL (0.7-1.3) 1.3 mg/dL (0.7-1.3) 1.2 mg/dL (0.7-1.3) 1.1 mg/dL (0.7-1.3) Estimated GFR (Cockcroft-Gault) 53.4 53.4 58.6 64.7 BUN/Creatinine Ratio 27 (6-20) 28 (6-20) 30 (6-20) Glucose Level 201 mg/dL (70-99) 173 mg/dL (70-99) 151 mg/dL (70-99) 152 mg/dL (70-99) Calcium Level 7.0 mg/dL (8.5-10.1) 7.0 mg/dL (8.5-10.1) 7.3 mg/dL (8.5-10.1) 7.4 mg/dL (8.5-10.1) Phosphorus Level 4.1 mg/dL (2.6-4.7) 3.8 mg/dL (2.6-4.7) 4.0 mg/dL (2.6-4.7) 3.9 mg/dL (2.6-4.7) Magnesium Level 2.7 mg/dL (1.8-2.4) 2.5 mg/dL (1.8-2.4) 2.7 mg/dL (1.8-2.4) 2.7 mg/dL (1.8-2.4) Total Bilirubin 11.9 mg/dL (0.2-1.0) 12.9 mg/dL (0.2-1.0) 14.4 mg/dL (0.2-1.0) Aspartate Amino Transf (AST/SGOT) 267 U/L (15-37) 253 U/L (15-37) 261 U/L (15-37) Alanine Aminotransferase (ALT/SGPT) 788 U/L (16-63) 766 U/L (16-63) 694 U/L (16-63) Alkaline Phosphatase 109 U/L (46-116) 120 U/L (46-116) 129 U/L (46-116) Total Protein 4.9 g/dL (6.4-8.2) 5.0 g/dL (6.4-8.2) 5.3 g/dL (6.4-8.2) Albumin 1.8 g/dL (3.4-5.0) 1.8 g/dL (3.4-5.0) 1.8 g/dL (3.4-5.0) Albumin/Globulin Ratio 0.6 (1.0-1.7) 0.6 (1.0-1.7) 0.5 (1.0-1.7) Results All relevant outside records, renal labs, imaging studies, telemetry/EKG's were reviewed. JAMEL LOPEZ MD Sep 18, 2019 11:43
[2019-09-18] MEDS: MEROPENEM 500 MG in IV NORMAL SALINE 50ML 50 ML IV SCH ×2 (13:07→20:43)
[2019-09-18] MEDS: methylPREDNISolone SOD SUCC PF 40 MG/ML VIAL. IV SCH ×2 (13:08→20:43)
--- NOTE | 2019-09-18 13:13 | PDOC2 ---
GI CONSULT Reason For Consult: bilirubin increasing, LFTs improved on CRRT HPI: HPI: 79 y/o male transferred from [facility] on 09/10/19. Initially presented w/ palpitations, found w/ A Fib RVR and possible pneumonia w/ hemoptysis - now w/ MOF intubated on vent and on CRRT, hematology also following for DIC. GI-tobias, shock liver w/ AST and ALT in 3000-4000s - these have improved but bilirubin is rising (14.4 today). Per family, no chronic issues w/ reflux/heartburn, dysphagia, n/v, abd pain, diarrhea, constipation, hematochezia, or melena. Not sure about previous EGD. Three colonoscopies in the past, last within 5 years - the first w/ polyps and the next two without. No GB, liver, pancreas, or PUD history. Previously on Naproxen per other notes. OG feeds - nurse reports increased residuals w/ slow rate. Has stooled - noted w/ some red blood. Is on amiodarone and IV PPI. PMH: PMH: RA, BPH, gout, colon polyps appendectomy, bilateral cataract extraction FH: Family History: Cancer (bone - son), Other (COPD - brother) Social History: Smoke: Quit ALCOHOL: occassional (weekly while playing golf) Drugs: None (CBD for arthritis) ROS: Unable to obtain. Vitals: Vitals: Vital Signs Date Time Temp Pulse Resp B/P (MAP) Pulse Ox O2 Delivery O2 Flow Rate FiO2 09/18/19 12:00 Mechanical Ventilator 09/18/19 12:00 100 20 99/55 (70) 100 09/18/19 10:00 97.1 97.1 09/18/19 07:56 15.0 Labs: Labs: Laboratory Tests Test 09/17/19 18:17 09/18/19 00:10 09/18/19 06:05 White Blood Count 20.6 x10^3/uL (4.0-11.0) 19.5 x10^3/uL (4.0-11.0) Red Blood Count 4.21 x10^6/uL (4.30-5.70) 4.42 x10^6/uL (4.30-5.70) Hemoglobin 10.0 g/dL (13.0-17.5) 10.6 g/dL (13.0-17.5) Hematocrit 31.2 % (39.0-53.0) 32.8 % (39.0-53.0) Mean Corpuscular Volume 74 fL (79-100) 74 fL (79-100) Mean Corpuscular Hemoglobin 24 pg (25-35) 24 pg (25-35) Mean Corpuscular Hemoglobin Concent 32 g/dL (31-37) 32 g/dL (31-37) Red Cell Distribution Width 19.2 % (11.5-14.5) 18.9 % (11.5-14.5) Platelet Count 36 x10^3/uL (140-400) 38 x10^3/uL (140-400) Neutrophils (%) (Auto) 97 % (31-73) Lymphocytes (%) (Auto) 1 % (24-48) Monocytes (%) (Auto) 1 % (0-9) Eosinophils (%) (Auto) 1 % (0-3) Basophils (%) (Auto) 0 % (0-3) Neutrophils # (Auto) 20.1 x10^3/uL (1.8-7.7) Lymphocytes # (Auto) 0.3 x10^3/uL (1.0-4.8) Monocytes # (Auto) 0.2 x10^3/uL (0.0-1.1) Eosinophils # (Auto) 0.1 x10^3/uL (0.0-0.7) Basophils # (Auto) 0.0 x10^3/uL (0.0-0.2) Sodium Level 141 mmol/L (136-145) 141 mmol/L (136-145) 141 mmol/L (136-145) Potassium Level 4.9 mmol/L (3.5-5.1) 5.0 mmol/L (3.5-5.1) 5.0 mmol/L (3.5-5.1) Chloride Level 106 mmol/L (98-107) 108 mmol/L (98-107) 106 mmol/L (98-107) Carbon Dioxide Level 28 mmol/L (21-32) 28 mmol/L (21-32) 26 mmol/L (21-32) Anion Gap 7 (6-14) 5 (6-14) 9 (6-14) Blood Urea Nitrogen 36 mg/dL (8-26) 35 mg/dL (8-26) 33 mg/dL (8-26) Creatinine 1.3 mg/dL (0.7-1.3) 1.2 mg/dL (0.7-1.3) 1.1 mg/dL (0.7-1.3) Estimated GFR (Cockcroft-Gault) 53.4 58.6 64.7 BUN/Creatinine Ratio 28 (6-20) 30 (6-20) Glucose Level 173 mg/dL (70-99) 151 mg/dL (70-99) 152 mg/dL (70-99) Calcium Level 7.0 mg/dL (8.5-10.1) 7.3 mg/dL (8.5-10.1) 7.4 mg/dL (8.5-10.1) Phosphorus Level 3.8 mg/dL (2.6-4.7) 4.0 mg/dL (2.6-4.7) 3.9 mg/dL (2.6-4.7) Magnesium Level 2.5 mg/dL (1.8-2.4) 2.7 mg/dL (1.8-2.4) 2.7 mg/dL (1.8-2.4) Total Bilirubin 12.9 mg/dL (0.2-1.0) 14.4 mg/dL (0.2-1.0) Aspartate Amino Transf (AST/SGOT) 253 U/L (15-37) 261 U/L (15-37) Alanine Aminotransferase (ALT/SGPT) 766 U/L (16-63) 694 U/L (16-63) Alkaline Phosphatase 120 U/L (46-116) 129 U/L (46-116) Total Protein 5.0 g/dL (6.4-8.2) 5.3 g/dL (6.4-8.2) Albumin 1.8 g/dL (3.4-5.0) 1.8 g/dL (3.4-5.0) Albumin/Globulin Ratio 0.6 (1.0-1.7) 0.5 (1.0-1.7) ORDERED: SPUTUM CULTURE GRAM STAIN WHITE BLOOD CELLS Final Many GRAM STAIN EPITHELIAL CELLS Final Moderate GRAM STAIN RESULT 1 Final No organisms seen GRAM STAIN EVALUATION Final Comment This specimen is of good quality and is acceptable for routine bacterial culture. Performed at: - [facility], [place], [place] [id number] Landscaper Helper: FELIX Koroma MD, Phone: [phone] SPUTUM CULTURE-LC Final Final report SPUTUM CULT RES 1 Final Yeast isolated. 2+ BLOOD CULTURE Final NO GROWTH AFTER 5 DAYS THROAT CULTURE Final Final report THROAT CULT RESULT 1 Final Comment Routine respiratory pebbles Allergies: Coded Allergies: No Known Drug Allergies (Unverified , 09/10/19) Medications: Current Medications Medications (Trade) Dose Ordered Sig/Veena Route PRN Reason Start Time Stop Time Status Last Admin Dose Admin Potassium Chloride 15 meq/ Bicarbonate Dialysis Soln w/ out KCl 5,007.5 ml @ 1,000 mls/ hr Q5H1M IV 09/17/19 16:00 09/18/19 10:27 Potassium Chloride 15 meq/ Bicarbonate Dialysis Soln w/ out KCl 5,007.5 ml @ 1,000 mls/ hr Q5H1M IV 09/17/19 16:00 09/18/19 10:29 Potassium Chloride 15 meq/ Bicarbonate Dialysis Soln w/ out KCl 5,007.5 ml @ 1,000 mls/ hr Q5H1M IV 09/17/19 16:00 09/18/19 10:28 Imaging: Imaging: CXR 09/16 IMPRESSION: Interstitial pulmonary edema or atypical/viral infection. Stable position of lines and tubes. Renal US 09/11 IMPRESSION: No hydronephrosis. CXR/KUB 09/11 IMPRESSION: Endotracheal tube terminates approximately 1.7 cm from the lang. Consider sli ght retraction if not artery performed. No change in pulmonary aeration. Enteric tube terminates in the left upper quadrant overlying the stomach. Echocardiogram 09/11 <Conclusion> Limited echo to assess LV function. The left ventricular systolic function is normal. The Ejection Fraction is 50-55%. There is no evidence of significant pericardial effusion. PE: GEN: intubated on CRRT HEENT: Atraumatic LUNGS: vent HEART: tachycardic ABD: quiet, soft EXTREMITY: BLE edema SKIN: No rashes NEURO/PSYCH: sedated A/P: A/P: Resp failure, renal failure, DIC, A Fib Abnormal LFTs - initially shock liver, improved, now bilirubin worsening CRC screen, h/o polyps - UTD -- Check abd US and haptoglobin. Monitor tube feeds and stooling/bleeding. Continue PPI. TERESE FULLER Sep 18, 2019 13:13
[2019-09-18 15:53] LABS: ALBUMIN 1.9 g/dL (3.4-5.0); ALBUMIN/GLOBULIN RATIO 0.6 (1.0-1.7); CALCIUM 7.4 mg/dL (8.5-10.1); CREATININE 1.3 mg/dL (0.7-1.3); GFR 53.4; MAGNESIUM 2.7 mg/dL (1.8-2.4); PHOSPHORUS 3.5 mg/dL (2.6-4.7); POTASSIUM 4.7 mmol/L (3.5-5.1); TOTAL BILIRUBIN 15.4 mg/dL (0.2-1.0); TOTAL PROTEIN 5.3 g/dL (6.4-8.2)
--- NOTE | 2019-09-18 16:19 | RAD ---
EXAM: Chest, single view. HISTORY: Intubation. COMPARISON: 09/16/2019 FINDINGS: A frontal view of the chest obtained. There is no endotracheal tube within the mid trachea. There is a nasogastric tube within the stomach. There are right sided central venous catheters within the superior cavoatrial junction superior right atrium. There is stable diffuse interstitial infiltrate suspected small pleural effusions. This is superimposed on suspected chronic interstitial changes. There is stable cardiac silhouette. IMPRESSION: 1. No significant change in diffuse interstitial infiltrate likely superimposed on chronic interstitial changes. 2. Support lines and tubes, described above. Electronically signed by: Isis Bello MD (09/18/2019 4:16 PM) [facility]
[2019-09-18 19:04] LABS: ALBUMIN 1.7 g/dL (3.4-5.0); ALBUMIN/GLOBULIN RATIO 0.5 (1.0-1.7); CALCIUM 7.1 mg/dL (8.5-10.1); CREATININE 1.4 mg/dL (0.7-1.3); MAGNESIUM 2.7 mg/dL (1.8-2.4); PHOSPHORUS 3.4 mg/dL (2.6-4.7); POTASSIUM 4.7 mmol/L (3.5-5.1); TOTAL BILIRUBIN 15.3 mg/dL (0.2-1.0)
[2019-09-18] MEDS: NOREPINEPHRIN 8MG/250ML PREMIX 250 ML IV PRN (20:17)
[2019-09-18 23:58] LABS: ALBUMIN 1.8 g/dL (3.4-5.0); ALBUMIN/GLOBULIN RATIO 0.5 (1.0-1.7); CALCIUM 6.9 mg/dL (8.5-10.1); CREATININE 1.3 mg/dL (0.7-1.3); GFR 53.4; MAGNESIUM 2.5 mg/dL (1.8-2.4); PHOSPHORUS 3.8 mg/dL (2.6-4.7); POTASSIUM 4.8 mmol/L (3.5-5.1); TOTAL BILIRUBIN 16.2 mg/dL (0.2-1.0); TOTAL PROTEIN 5.1 g/dL (6.4-8.2)
[2019-09-19] VITALS (27 sets, daily range): BP systolic 102–150; BP diastolic 54–82
[2019-09-19] MEDS: POTASSIUM CHLORIDE 15 MEQ in DIALYSIS SOLUTION BGK 0/2.5 5,000 ML IV SCH ×29 (00:30→23:11)
[2019-09-19 05:50] LABS: HEMOGLOBIN 10.5 g/dL (13.0-17.5); RED BLOOD COUNT 4.47 x10^6/uL (4.30-5.70); RED CELL DISTRIBUTION WIDTH 18.9 % (11.5-14.5); WHITE BLOOD COUNT 23.3 x10^3/uL (4.0-11.0)
[2019-09-19 06:08] LABS: ALBUMIN 1.7 g/dL (3.4-5.0); ALBUMIN/GLOBULIN RATIO 0.5 (1.0-1.7); CALCIUM 7.3 mg/dL (8.5-10.1); CREATININE 1.2 mg/dL (0.7-1.3); DIRECT BILIRUBIN 13.6 mg/dL (0.0-0.2); GFR 58.6; MAGNESIUM 2.7 mg/dL (1.8-2.4); POTASSIUM 4.9 mmol/L (3.5-5.1); TOTAL BILIRUBIN 17.3 mg/dL (0.2-1.0); TOTAL PROTEIN 5.2 g/dL (6.4-8.2)
--- NOTE | 2019-09-19 07:42 | PDOC ---
Infectious Disease Note Subjective: Subjective Pt condition remains unchanged sedated on vent on pressors undergoing CRRT ROS: ROS d/w rn Vital Signs: Vital Signs Vital Signs Date Time Temp Pulse Resp B/P (MAP) Pulse Ox O2 Delivery O2 Flow Rate FiO2 09/19/19 07:00 103 20 110/70 (83) 99 Ventilator 09/19/19 04:00 97.4 97.4 09/18/19 08:26 15.0 Physical Exam: PHYSICAL EXAM GENERAL: orally intubated on vent HEENT: icteric, ETT +, dry cracked lips with dry blood, large dorsal tongue lesion ? tongue bite,ventral tongue ulceration , cannot visualize the whole mo uth NECK: Supple, RT IJ and central line + looks clean LUNGS: dec bs at the basel HEART: S1, S2 regular, no murmurs ABDOMEN: Soft,mildly distended, nontender, BS + EXTREMITIES: +edema, no cyanosis. SKIN: Unremarkable. NEUROLOGIC: sedated intubated Medications: Inpatient Meds: Current Medications Medications (Trade) Dose Ordered Sig/Veena Start Time Stop Time Status Last Admin Dose Admin Albuterol Sulfate (Ventolin Neb Soln) 2.5 mg RTQID 09/10/19 08:00 09/18/19 19:43 2.5 MG Amiodarone HCl 450 mg/Dextrose 259 ml @ 17 mls/hr CONT PRN 09/10/19 09:00 09/11/19 02:33 17 MLS/HR Azithromycin (Zithromax) 250 mg DAILY 09/10/19 09:00 09/10/19 13:35 DC 09/10/19 08:38 250 MG Bisacodyl (Dulcolax Supp) 10 mg PRN DAILY PRN 09/10/19 10:00 09/10/19 10:00 10 MG Calcium Chloride 12.5 meq/ Bicarbonate Dialysis Soln w/ out KCl 5,008.9286 ml @ 1,000 mls/hr Q5H1M 09/12/19 13:00 09/12/19 12:18 DC Calcium Chloride 12.5 meq/ Potassium Chloride 5 meq/ Bicarbonate Dialysis Soln w/ out KCl 5,011.4286 ml @ 1,000 mls/hr Q5H1M 09/17/19 12:00 09/17/19 18:33 DC 09/17/19 13:05 1,000 MLS/HR Ceftriaxone Sodium (Rocephin) 1 gm Q24H 09/10/19 12:00 09/10/19 13:35 DC 09/10/19 12:55 1 GM Daptomycin 320 mg/ Sodium Chloride 50 ml @ 100 mls/hr Q24H 09/13/19 08:00 09/18/19 08:14 100 MLS/HR Diltiazem HCl 125 mg/Dextrose 125 ml @ 0 mls/hr CONT PRN 09/10/19 06:30 09/11/19 05:40 10 MLS/HR Dutasteride (Avodart) 0.5 mg DAILY 09/10/19 09:00 09/15/19 08:09 0.5 MG Epinephrine HCl 4 mg/Sodium Chloride 254 ml @ 28.061 mls/ hr CONT PRN 09/11/19 15:45 09/13/19 15:56 DC Fentanyl Citrate (Fentanyl 600 Mcg/30 ml ABSTRACT WRITER) 600 mcg STK-MED ONCE 09/11/19 11:28 09/12/19 15:46 DC Fluconazole/ Sodium Chloride 50 ml @ 100 mls/hr Q24H 09/16/19 08:15 09/16/19 08:14 DC Furosemide (Lasix) 40 mg 1X ONCE 09/10/19 15:45 09/10/19 15:46 DC 09/10/19 16:38 40 MG Influenza Virus Vaccine Quadrival (Afluria Quad 2019-20 (3yr Up) Syringe) 0.5 ml ONCE ONCE 09/11/19 09:00 09/11/19 09:01 DC Lactobacillus Rhamnosus (Culturelle) 1 cap BID 09/10/19 09:00 09/12/19 09:15 DC 09/11/19 21:16 1 CAP Levofloxacin/ Dextrose 100 ml @ 100 mls/hr Q24H 09/12/19 09:00 09/18/19 13:07 100 MLS/HR Lidocaine HCl (Buffered Lidocaine 1%) 3 ml 1X ONCE 09/11/19 17:15 09/11/19 17:16 DC 09/11/19 17:14 3 ML Lidocaine HCl (Lta Kit) 4 ml STK-MED ONCE 09/10/19 16:00 09/12/19 09:29 DC Lorazepam (Ativan Inj) 0.5 mg 1X ONCE 09/10/19 11:45 09/10/19 11:47 DC 09/10/19 11:48 0.5 MG Meropenem 500 mg/ Sodium Chloride 50 ml @ 100 mls/hr Q12H 09/15/19 21:00 09/18/19 20:43 100 MLS/HR Methylprednisolone Sodium Succinate (SOLU-Medrol 40MG VIAL) 40 mg Q12HR 09/16/19 21:00 09/18/19 20:43 40 MG Midazolam HCl 100 ml @ 0 mls/hr CONT PRN 09/11/19 10:15 09/17/19 22:50 5 MLS/HR Morphine Sulfate (Morphine Sulfate) 4 mg PRN Q2HR PRN 09/10/19 21:15 09/11/19 20:31 4 MG Naproxen (Naprosyn) 500 mg PRN BID PRN 09/10/19 06:30 09/12/19 11:01 DC Norepinephrine Bitartrate 250 ml @ 13.81 mls/ hr CONT PRN 09/11/19 10:45 09/18/19 20:17 7.5 MLS/HR Pantoprazole Sodium (PROTONIX VIAL for IV PUSH) 40 mg DAILYAC 09/12/19 12:00 09/18/19 08:14 40 MG Phytonadione (Vitamin K Ampule) 10 mg 1X ONCE 09/16/19 08:45 09/16/19 08:46 UNV Phytonadione 1 mg/ Dextrose 50.1 ml @ 102 mls/hr 1X ONCE 09/12/19 17:00 09/12/19 17:29 DC 09/12/19 17:07 102 MLS/HR Piperacillin Sod/ Tazobactam Sod 3.375 gm/Sodium Chloride 50 ml @ 100 mls/hr 1X ONCE 09/13/19 22:00 09/13/19 22:29 DC 09/13/19 22:27 100 MLS/HR Potassium Chloride 10 meq/ Bicarbonate Dialysis Soln w/ out KCl 5,005 ml @ 1,000 mls/hr Q5H1M 09/12/19 13:00 09/13/19 08:36 DC 09/13/19 06:05 1,000 MLS/HR Potassium Chloride 15 meq/ Bicarbonate Dialysis Soln w/ out KCl 5,007.5 ml @ 1,000 mls/ hr Q5H1M 09/17/19 16:00 09/19/19 07:10 1,000 MLS/HR Potassium Chloride 20 meq/ Bicarbonate Dialysis Soln w/ out KCl 5,010 ml @ 1,000 mls/hr Q5H1M 09/15/19 13:45 09/17/19 07:39 DC 09/17/19 02:18 1,000 MLS/HR Propofol 100 ml @ 0 mls/hr CONT PRN 09/11/19 10:15 09/13/19 15:56 DC Sodium Bicarbonate 100 meq/Dextrose 1,100 ml @ 75 mls/hr [id number] 09/11/19 09:00 09/13/19 15:56 DC 09/13/19 06:03 75 MLS/HR Sodium Bicarbonate (Sodium Bicarb Adult 8.4% Syr) 100 meq 1X ONCE 09/11/19 11:15 09/11/19 11:16 DC 09/11/19 11:28 100 MEQ Sodium Chloride 500 ml @ 500 mls/hr 1X ONCE 09/11/19 21:15 09/11/19 22:14 DC 09/11/19 21:21 500 MLS/HR Sodium Chloride (Normal Saline Flush) 10 ml QSHIFT PRN 09/10/19 07:00 Succinylcholine Chloride (Anectine) 200 mg STK-MED ONCE 09/11/19 10:57 09/11/19 10:57 DC Vancomycin HCl (Vanco Per Pharmacy) 1 each PRN DAILY PRN 09/10/19 14:00 09/11/19 07:59 DC 09/10/19 16:55 1 EACH Vancomycin HCl (Vancomycin Trough Level) 1 each 1X ONCE 09/12/19 16:00 09/11/19 08:01 DC Vancomycin HCl 1.5 gm/Sodium Chloride 500 ml @ 250 mls/hr 1X ONCE 09/10/19 14:00 09/10/19 15:59 DC 09/10/19 16:39 250 MLS/HR Vancomycin HCl 1 gm/Sodium Chloride 250 ml @ 250 mls/hr Q24H 09/11/19 16:30 09/11/19 07:59 DC Vasopressin 40 unit/Dextrose 102 ml @ 6 mls/hr CONT PRN 09/11/19 11:30 09/16/19 22:52 6 MLS/HR Labs: Lab Laboratory Tests Test 09/18/19 13:00 09/18/19 18:15 09/18/19 23:30 09/19/19 05:40 Haptoglobin 18 mg/dL (34-200) Sodium Level 141 mmol/L (136-145) 139 mmol/L (136-145) 142 mmol/L (136-145) 139 mmol/L (136-145) Potassium Level 4.7 mmol/L (3.5-5.1) 4.7 mmol/L (3.5-5.1) 4.8 mmol/L (3.5-5.1) 4.9 mmol/L (3.5-5.1) Chloride Level 106 mmol/L (98-107) 106 mmol/L (98-107) 107 mmol/L (98-107) 104 mmol/L (98-107) Carbon Dioxide Level 27 mmol/L (21-32) 26 mmol/L (21-32) 27 mmol/L (21-32) 25 mmol/L (21-32) Anion Gap 8 (6-14) 7 (6-14) 8 (6-14) 10 (6-14) Blood Urea Nitrogen 34 mg/dL (8-26) 38 mg/dL (8-26) 35 mg/dL (8-26) 36 mg/dL (8-26) Creatinine 1.3 mg/dL (0.7-1.3) 1.4 mg/dL (0.7-1.3) 1.3 mg/dL (0.7-1.3) 1.2 mg/dL (0.7-1.3) Estimated GFR (Cockcroft-Gault) 53.4 49.0 53.4 58.6 BUN/Creatinine Ratio 26 (6-20) 27 (6-20) 27 (6-20) 30 (6-20) Glucose Level 150 mg/dL (70-99) 161 mg/dL (70-99) 156 mg/dL (70-99) 164 mg/dL (70-99) Calcium Level 7.4 mg/dL (8.5-10.1) 7.1 mg/dL (8.5-10.1) 6.9 mg/dL (8.5-10.1) 7.3 mg/dL (8.5-10.1) Phosphorus Level 3.5 mg/dL (2.6-4.7) 3.4 mg/dL (2.6-4.7) 3.8 mg/dL (2.6-4.7) Magnesium Level 2.7 mg/dL (1.8-2.4) 2.7 mg/dL (1.8-2.4) 2.5 mg/dL (1.8-2.4) 2.7 mg/dL (1.8-2.4) Total Bilirubin 15.4 mg/dL (0.2-1.0) 15.3 mg/dL (0.2-1.0) 16.2 mg/dL (0.2-1.0) 17.3 mg/dL (0.2-1.0) Aspartate Amino Transf (AST/SGOT) 248 U/L (15-37) 231 U/L (15-37) 244 U/L (15-37) 254 U/L (15-37) Alanine Aminotransferase (ALT/SGPT) 613 U/L (16-63) 547 U/L (16-63) 530 U/L (16-63) 514 U/L (16-63) Alkaline Phosphatase 128 U/L (46-116) 125 U/L (46-116) 128 U/L (46-116) 136 U/L (46-116) Total Protein 5.3 g/dL (6.4-8.2) 5.0 g/dL (6.4-8.2) 5.1 g/dL (6.4-8.2) 5.2 g/dL (6.4-8.2) Albumin 1.9 g/dL (3.4-5.0) 1.7 g/dL (3.4-5.0) 1.8 g/dL (3.4-5.0) 1.7 g/dL (3.4-5.0) Albumin/Globulin Ratio 0.6 (1.0-1.7) 0.5 (1.0-1.7) 0.5 (1.0-1.7) 0.5 (1.0- 1.7) White Blood Count 23.3 x10^3/uL (4.0-11.0) Red Blood Count 4.47 x10^6/uL (4.30-5.70) Hemoglobin 10.5 g/dL (13.0-17.5) Hematocrit 33.0 % (39.0-53.0) Mean Corpuscular Volume 74 fL (79-100) Mean Corpuscular Hemoglobin 24 pg (25-35) Mean Corpuscular Hemoglobin Concent 32 g/dL (31-37) Red Cell Distribution Width 18.9 % (11.5-14.5) Platelet Count 55 x10^3/uL (140-400) Direct Bilirubin 13.6 mg/dL (0.0-0.2) Micro reviewed bc neg throat c/s neg sputum neg Objective: Assessment: Pt with multiorgan failure 1. Respiratory failure. Pulmonary infiltrate. likely respiratory infection though w/u neg with acute respiratory distress syndrome.on empiric broad spectrum, sputum c/s neg, RVP neg, legionella neg 2. Leukocytosis.reactive 3 Acute kidney injury, multifactorial from hypotension on CRRT, 4. Hepatic failure ,hyperbilirubinemia, multifactorial including likely shock liver 5. DIC 6 History of rheumatoid arthritis, had been on naproxen. 7 .A fib with RVR and Circulatory failure. 8. Thrombocytopenia from DIC 9. GI Bleed 10. Encephalopathy metabolic 11. Oral lesions ? etiology Plan: Plan of Care cont merrem ( 09/15);was on zosyn, latter dc due to thrombocytopenia from dic Cont daptomycin DC Levaquin cont supportive care f/u c/s and labs f/u cmv and ebv serologies though clinically less likely less likely coccidiodes but with recent travel to [place] will obtain serologies,per pt had symptoms before they left for [place] Condition critical prognosis very poor oral care ENT not available per staff D/W Nursing staff ENMANUEL GAN MD Sep 19, 2019 07:42
[2019-09-19] MEDS: PANTOPRAZOLE IV PUSH 40 MG VIAL. IVP SCH (08:04)
[2019-09-19] MEDS: DAPTOmycin (GENERIC) IVPB 320 MG in IV NORMAL SALINE 50ML 50 ML IV SCH (08:12)
[2019-09-19] MEDS: methylPREDNISolone SOD SUCC PF 40 MG/ML VIAL. IV SCH ×2 (08:12→20:59)
--- NOTE | 2019-09-19 08:55 | PN ---
DATE: 09/19/2019 SUBJECTIVE: The patient continues to be intubated, mechanically ventilated. He is off sedation. He continued to be on Levophed; however, there is a black discoloration of the tip of his tongue and the big toe of the right foot; however, all the other toes and fingers are intact. Ears also showed no evidence of any ischemia or gangrene. PHYSICAL EXAMINATION: GENERAL: When I examined him, he looked well and was clearly in no apparent respiratory distress, pale, but no jaundice, cyanosis or thyromegaly. Has generalized anasarca. VITAL SIGNS: His heart rate was 101, blood pressure was 113/63, temperature was 97.8, respiratory rate was 20, and oxygen saturation was 100% on FiO2 of 40%. HEAD, EYES, EARS, NOSE AND THROAT: Showed normocephalic, atraumatic. NECK: Supple. He has orotracheal and orogastric tube in place. HEART: Showed normal first and second heart sounds. No gallop or murmur. CHEST: Shows central trachea, equal bilateral expansion, air entry, vesicular sounds. No crepitation or rhonchi. ABDOMEN: Distended, soft, nontender. NEUROLOGIC: He continued to be unresponsive, although he is off sedation. His intake was 3122, output was 703. LABORATORY DATA: As of this morning, his white cell count is up to 23,300, hemoglobin 10.5, hematocrit 33, MCV 74 and platelet count dropped to 55,000. His chemistry showed a serum sodium 139, potassium 4.9, chloride 104, bicarbonate 25, anion gap of 10, BUN 36, creatinine 1.2, estimated GFR was 58 mL per minute, his glucose 164, calcium was 7.3, magnesium was 2.7. His bilirubin is going up further to 17.3 with direct bilirubin was 13.6. His AST, ALT, alkaline phosphatase are elevated, although they are generally trending down. Total protein was 5.2, albumin was 1.7. ASSESSMENT: 1. Acute hypoxic respiratory failure and acute respiratory distress syndrome, continued to be intubated, mechanically ventilated, maintaining his oxygen saturation 100% on FiO2 of 40%. 2. Septic shock requiring vasopressors, IV antibiotic. 3. Community-acquired pneumonia. 4. Acute kidney injury, likely due to acute tubular necrosis secondary to sepsis. He continues to be completely anuric, currently on continuous renal replacement therapy, tolerating it well. 5. Hypertension for which he continues to be on Levophed. His vasopressin and epinephrine were discontinued. 6. Deranged liver enzymes. The alkaline phosphatase, AST and ALT are slightly elevated, although they are trending down. His total bilirubin continued to be rising and today was 17.6. 7. Rheumatoid arthritis. 8. Possible interstitial lung disease and pulmonary fibrosis. 9. Atrial fibrillation with rapid ventricular response for which he was cardioverted. 10. Thrombocytopenia, slightly better. Platelet count up to 55,000. 11. High gastric residual for which his tube feed was on hold. He is now back on his tube feeding. PLAN: To continue with mechanical ventilation, wean as tolerated. Continue with nutritional support in the form of tube feeding. Continue with IV antibiotic. Continue with Levophed. Continue with continuous renal replacement therapy. His Versed and fentanyl were discontinued. So far, the patient continued to be unresponsive concerning gangrene of the tip of the left side of his tongue and right big toe. INGRIS FINCH MD DR: JOSIANE/jose JOB#: [id number] / [id number]
[2019-09-19] MEDS: DUTASTERIDE 0.5 MG CAPSULE PO SCH (09:00)
[2019-09-19] MEDS: MEROPENEM 500 MG in IV NORMAL SALINE 50ML 50 ML IV SCH ×2 (09:00→21:00)
--- NOTE | 2019-09-19 09:07 | PDOC ---
Objective: Objective: Off sedation since yesterday afternoon, residuals w/ slow tube feed rate, US done yesterday but not in chart. Vital Signs: Vital Signs Date Time Temp Pulse Resp B/P (MAP) Pulse Ox O2 Delivery O2 Flow Rate FiO2 09/19/19 08:00 97.8 101 20 113/63 (80) 100 Ventilator 97.8 09/18/19 08:26 15.0 Labs: Laboratory Tests Test 09/18/19 13:00 09/18/19 18:15 09/18/19 23:30 09/19/19 05:40 Haptoglobin 18 mg/dL Sodium Level 141 mmol/L 139 mmol/L 142 mmol/L 139 mmol/L Potassium Level 4.7 mmol/L 4.7 mmol/L 4.8 mmol/L 4.9 mmol/L Chloride Level 106 mmol/L 106 mmol/L 107 mmol/L 104 mmol/L Carbon Dioxide Level 27 mmol/L 26 mmol/L 27 mmol/L 25 mmol/L Anion Gap 8 7 8 10 Blood Urea Nitrogen 34 mg/dL 38 mg/dL 35 mg/dL 36 mg/dL Creatinine 1.3 mg/dL 1.4 mg/dL 1.3 mg/dL 1.2 mg/dL Estimated GFR (Cockcroft-Gault) 53.4 49.0 53.4 58.6 BUN/Creatinine Ratio 26 27 27 30 Glucose Level 150 mg/dL 161 mg/dL 156 mg/dL 164 mg/dL Calcium Level 7.4 mg/dL 7.1 mg/dL 6.9 mg/dL 7.3 mg/dL Phosphorus Level 3.5 mg/dL 3.4 mg/dL 3.8 mg/dL Magnesium Level 2.7 mg/dL 2.7 mg/dL 2.5 mg/dL 2.7 mg/dL Total Bilirubin 15.4 mg/dL 15.3 mg/dL 16.2 mg/dL 17.3 mg/dL Aspartate Amino Transf (AST/SGOT) 248 U/L 231 U/L 244 U/L 254 U/L Alanine Aminotransferase (ALT/SGPT) 613 U/L 547 U/L 530 U/L 514 U/L Alkaline Phosphatase 128 U/L 125 U/L 128 U/L 136 U/L Total Protein 5.3 g/dL 5.0 g/dL 5.1 g/dL 5.2 g/dL Albumin 1.9 g/dL 1.7 g/dL 1.8 g/dL 1.7 g/dL Albumin/Globulin Ratio 0.6 0.5 0.5 0.5 White Blood Count 23.3 x10^3/uL Red Blood Count 4.47 x10^6/uL Hemoglobin 10.5 g/dL Hematocrit 33.0 % Mean Corpuscular Volume 74 fL Mean Corpuscular Hemoglobin 24 pg Mean Corpuscular Hemoglobin Concent 32 g/dL Red Cell Distribution Width 18.9 % Platelet Count 55 x10^3/uL Direct Bilirubin 13.6 mg/dL PE: GEN: CRRT, intubated LUNGS: vent HEART: mildly tachycardic ABD: quiet, soft NEURO/PSYCH: off sedation, unresponsive during abdominal exam A/P: Resp failure, renal failure, DIC, A Fib Abnormal LFTs (bili worse), low haptoglobin -- Awaiting US results - done yesterday. Continue PPI, monitor tube feeds. TERESE FULLER Sep 19, 2019 09:07
--- NOTE | 2019-09-19 09:13 | NUR ---
Consult called to Dr. 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
--- NOTE | 2019-09-19 09:15 | RAD ---
PORTABLE CHEST 1V INDICATION: Respiratory failure. COMPARISON STUDY: 09/18/2019. FINDINGS: Life Support Devices: Stable life support devices. Lungs: Normal lung volume. Stable bilateral perihilar and basilar opacities and coarse interstitial markings. Pleura: Stable pleural spaces. Heart and Mediastinum: Stable cardiomediastinal silhouette and great vessels. IMPRESSION: 1. Stable life support devices. 2. Stable bilateral perihilar and basilar opacities with coarse interstitial markings. Electronically signed by: Jl Leonard MD (09/19/2019 9:12 AM) [id number]
--- NOTE | 2019-09-19 09:17 | PDOC ---
SUBJECTIVE ROS Intubated, OBJECTIVE Vital Signs Vital Signs Date Time Temp Pulse Resp B/P (MAP) Pulse Ox O2 Delivery O2 Flow Rate FiO2 09/19/19 09:00 97 20 133/81 (98) 99 Ventilator 09/19/19 08:00 97.8 97.8 09/18/19 08:26 15.0 I & 0 Intake and Output 09/19/19 07:00 Intake Total 18343.0 ml Output Total 703 ml Balance 54865.0 ml IV Total 04396.0 ml Tube Feeding 628 ml Other 100 ml Output Urine Total 3 ml Gastric Drainage Total 700 ml # Bowel Movements 1 PHYSICAL EXAM Physical Exam GENERAL: orally intubated on vent HEENT: Both pupils are round and reacting. Orally intubated NECK: Supple, LUNGS: Clear. HEART: S1, S2 regular. ABDOMEN: Soft, EXTREMITIES: No edema, cyanosis. SKIN: Unremarkable. NEUROLOGIC: intubated gould + DIAGNOSIS/ASSESSMENT Assessment & Plan PEDRO- ATN due to Sepsis , Anuric On CRRT since 09/11 , tolerating well,continue as ordered ,dw Hedis Manager UF as tolerated , Dw RN at bedside Cxr- Chr interstitial changes per report Sepsis -On Abx Metabolic acidosis- Normal Bicarb, On CRRT HyperMg- Recommend using CRRT solutions with lower Mg Hypotension- off pressors currently Elevated LFT's - suspect shock liver, Improving Bilirubin increasing, GI consulted Ac Hypoxic Resp failure- Intubated /MV Abnormal CT chest revealing bilateral pulmonary infiltrates. Pneumonia Possible interstitial lung disease/pulmonary fibrosis. History of rheumatoid arthritis. Atrial fibrillation with rapid ventricular response. Cardioverted Discussed with family and RN at bedside COMMENT/RELEVANT DATA Meds Current Medications Medications (Trade) Dose Ordered Sig/Veena Start Time Stop Time Status Last Admin Dose Admin Albuterol Sulfate (Ventolin Neb Soln) 2.5 mg RTQID 09/10/19 08:00 09/18/19 19:43 2.5 MG Amiodarone HCl 450 mg/Dextrose 259 ml @ 17 mls/hr CONT PRN 09/10/19 09:00 09/11/19 02:33 17 MLS/HR Azithromycin (Zithromax) 250 mg DAILY 09/10/19 09:00 09/10/19 13:35 DC 09/10/19 08:38 250 MG Bisacodyl (Dulcolax Supp) 10 mg PRN DAILY PRN 10/14/19 10:00 09/10/19 10:00 10 MG Calcium Chloride 12.5 meq/ Bicarbonate Dialysis Soln w/ out KCl 5,008.9286 ml @ 1,000 mls/hr Q5H1M 09/12/19 13:00 09/12/19 12:18 DC Calcium Chloride 12.5 meq/ Potassium Chloride 5 meq/ Bicarbonate Dialysis Soln w/ out KCl 5,011.4286 ml @ 1,000 mls/hr Q5H1M 09/17/19 12:00 09/17/19 18:33 DC 09/17/19 13:05 1,000 MLS/HR Ceftriaxone Sodium (Rocephin) 1 gm Q24H 09/10/19 12:00 09/10/19 13:35 DC 09/10/19 12:55 1 GM Daptomycin 320 mg/ Sodium Chloride 50 ml @ 100 mls/hr Q24H 09/13/19 08:00 09/19/19 08:12 100 MLS/HR Diltiazem HCl 125 mg/Dextrose 125 ml @ 0 mls/hr CONT PRN 09/10/19 06:30 09/11/19 05:40 10 MLS/HR Dutasteride (Avodart) 0.5 mg DAILY 09/10/19 09:00 09/15/19 08:09 0.5 MG Epinephrine HCl 4 mg/Sodium Chloride 254 ml @ 28.061 mls/ hr CONT PRN 09/11/19 15:45 09/13/19 15:56 DC Fentanyl Citrate (Fentanyl 600 Mcg/30 ml TRAFFIC CHIEF) 600 mcg STK-MED ONCE 09/11/19 11:28 09/12/19 15:46 DC Fluconazole/ Sodium Chloride 50 ml @ 100 mls/hr Q24H 09/16/19 08:15 09/16/19 08:14 DC Furosemide (Lasix) 40 mg 1X ONCE 09/10/19 15:45 09/10/19 15:46 DC 09/10/19 16:38 40 MG Influenza Virus Vaccine Quadrival (Afluria Quad 2019-20 (3yr Up) Syringe) 0.5 ml ONCE ONCE 09/11/19 09:00 09/11/19 09:01 DC Lactobacillus Rhamnosus (Culturelle) 1 cap BID 09/10/19 09:00 09/12/19 09:15 DC 09/11/19 21:16 1 CAP Levofloxacin/ Dextrose 100 ml @ 100 mls/hr Q24H 09/12/19 09:00 09/19/19 08:00 DC 09/18/19 13:07 100 MLS/HR Lidocaine HCl (Buffered Lidocaine 1%) 3 ml 1X ONCE 09/11/19 17:15 09/11/19 17:16 DC 09/11/19 17:14 3 ML Lidocaine HCl (Lta Kit) 4 ml STK-MED ONCE 09/10/19 16:00 09/12/19 09:29 DC Lorazepam (Ativan Inj) 0.5 mg 1X ONCE 09/10/19 11:45 09/10/19 11:47 DC 09/10/19 11:48 0.5 MG Meropenem 500 mg/ Sodium Chloride 50 ml @ 100 mls/hr Q12H 09/15/19 21:00 09/19/19 09:00 100 MLS/HR Methylprednisolone Sodium Succinate (SOLU-Medrol 40MG VIAL) 40 mg Q12HR 09/16/19 21:00 09/19/19 08:12 40 MG Midazolam HCl 100 ml @ 0 mls/hr CONT PRN 09/11/19 10:15 09/17/19 22:50 5 MLS/HR Morphine Sulfate (Morphine Sulfate) 4 mg PRN Q2HR PRN 09/10/19 21:15 09/11/19 20:31 4 MG Naproxen (Naprosyn) 500 mg PRN BID PRN 09/10/19 06:30 09/12/19 11:01 DC Norepinephrine Bitartrate 250 ml @ 13.81 mls/ hr CONT PRN 09/11/19 10:45 09/18/19 20:17 7.5 MLS/HR Pantoprazole Sodium (PROTONIX VIAL for IV PUSH) 40 mg DAILYAC 09/12/19 12:00 09/19/19 08:04 40 MG Phytonadione (Vitamin K Ampule) 10 mg 1X ONCE 09/16/19 08:45 09/16/19 08:46 UNV Phytonadione 1 mg/ Dextrose 50.1 ml @ 102 mls/hr 1X ONCE 09/12/19 17:00 09/12/19 17:29 DC 09/12/19 17:07 102 MLS/HR Piperacillin Sod/ Tazobactam Sod 3.375 gm/Sodium Chloride 50 ml @ 100 mls/hr 1X ONCE 09/13/19 22:00 09/13/19 22:29 DC 09/13/19 22:27 100 MLS/HR Potassium Chloride 10 meq/ Bicarbonate Dialysis Soln w/ out KCl 5,005 ml @ 1,000 mls/hr Q5H1M 09/12/19 13:00 09/13/19 08:36 DC 09/13/19 06:05 1,000 MLS/HR Potassium Chloride 15 meq/ Bicarbonate Dialysis Soln w/ out KCl 5,007.5 ml @ 1,000 mls/ hr Q5H1M 09/17/19 16:00 09/19/19 07:10 1,000 MLS/HR Potassium Chloride 20 meq/ Bicarbonate Dialysis Soln w/ out KCl 5,010 ml @ 1,000 mls/hr Q5H1M 09/15/19 13:45 09/17/19 07:39 DC 09/17/19 02:18 1,000 MLS/HR Propofol 100 ml @ 0 mls/hr CONT PRN 09/11/19 10:15 09/13/19 15:56 DC Sodium Bicarbonate 100 meq/Dextrose 1,100 ml @ 75 mls/hr [id number] 09/11/19 09:00 09/13/19 15:56 DC 09/13/19 06:03 75 MLS/HR Sodium Bicarbonate (Sodium Bicarb Adult 8.4% Syr) 100 meq 1X ONCE 09/11/19 11:15 09/11/19 11:16 DC 09/11/19 11:28 100 MEQ Sodium Chloride 500 ml @ 500 mls/hr 1X ONCE 09/11/19 21:15 09/11/19 22:14 DC 09/11/19 21:21 500 MLS/HR Sodium Chloride (Normal Saline Flush) 10 ml QSHIFT PRN 09/10/19 07:00 Succinylcholine Chloride (Anectine) 200 mg STK-MED ONCE 09/11/19 10:57 09/11/19 10:57 DC Vancomycin HCl (Vanco Per Pharmacy) 1 each PRN DAILY PRN 09/10/19 14:00 09/11/19 07:59 DC 09/10/19 16:55 1 EACH Vancomycin HCl (Vancomycin Trough Level) 1 each 1X ONCE 09/12/19 16:00 09/11/19 08:01 DC Vancomycin HCl 1.5 gm/Sodium Chloride 500 ml @ 250 mls/hr 1X ONCE 09/10/19 14:00 09/10/19 15:59 DC 09/10/19 16:39 250 MLS/HR Vancomycin HCl 1 gm/Sodium Chloride 250 ml @ 250 mls/hr Q24H 09/11/19 16:30 09/11/19 07:59 DC Vasopressin 40 unit/Dextrose 102 ml @ 6 mls/hr CONT PRN 09/11/19 11:30 09/16/19 22:52 6 MLS/HR Lab Laboratory Tests Test 09/18/19 13:00 09/18/19 18:15 09/18/19 23:30 09/19/19 05:40 Haptoglobin 18 mg/dL (34-200) Sodium Level 141 mmol/L (136-145) 139 mmol/L (136-145) 142 mmol/L (136-145) 139 mmol/L (136-145) Potassium Level 4.7 mmol/L (3.5-5.1) 4.7 mmol/L (3.5-5.1) 4.8 mmol/L (3.5-5.1) 4.9 mmol/L (3.5-5.1) Chloride Level 106 mmol/L (98-107) 106 mmol/L (98-107) 107 mmol/L (98-107) 104 mmol/L (98-107) Carbon Dioxide Level 27 mmol/L (21-32) 26 mmol/L (21-32) 27 mmol/L (21-32) 25 mmol/L (21-32) Anion Gap 8 (6-14) 7 (6-14) 8 (6-14) 10 (6-14) Blood Urea Nitrogen 34 mg/dL (8-26) 38 mg/dL (8-26) 35 mg/dL (8-26) 36 mg/dL (8-26) Creatinine 1.3 mg/dL (0.7-1.3) 1.4 mg/dL (0.7-1.3) 1.3 mg/dL (0.7-1.3) 1.2 mg/dL (0.7-1.3) Estimated GFR (Cockcroft-Gault) 53.4 49.0 53.4 58.6 BUN/Creatinine Ratio 26 (6-20) 27 (6-20) 27 (6-20) 30 (6-20) Glucose Level 150 mg/dL (70-99) 161 mg/dL (70-99) 156 mg/dL (70-99) 164 mg/dL (70-99) Calcium Level 7.4 mg/dL (8.5-10.1) 7.1 mg/dL (8.5-10.1) 6.9 mg/dL (8.5-10.1) 7.3 mg/dL (8.5-10.1) Phosphorus Level 3.5 mg/dL (2.6-4.7) 3.4 mg/dL (2.6-4.7) 3.8 mg/dL (2.6-4.7) Magnesium Level 2.7 mg/dL (1.8-2.4) 2.7 mg/dL (1.8-2.4) 2.5 mg/dL (1.8-2.4) 2.7 mg/dL (1.8-2.4) Total Bilirubin 15.4 mg/dL (0.2-1.0) 15.3 mg/dL (0.2-1.0) 16.2 mg/dL (0.2-1.0) 17.3 mg/dL (0.2-1.0) Aspartate Amino Transf (AST/SGOT) 248 U/L (15-37) 231 U/L (15-37) 244 U/L (15-37) 254 U/L (15-37) Alanine Aminotransferase (ALT/SGPT) 613 U/L (16-63) 547 U/L (16-63) 530 U/L (16-63) 514 U/L (16-63) Alkaline Phosphatase 128 U/L (46-116) 125 U/L (46-116) 128 U/L (46-116) 136 U/L (46-116) Total Protein 5.3 g/dL (6.4-8.2) 5.0 g/dL (6.4-8.2) 5.1 g/dL (6.4-8.2) 5.2 g/dL (6.4-8.2) Albumin 1.9 g/dL (3.4-5.0) 1.7 g/dL (3.4-5.0) 1.8 g/dL (3.4-5.0) 1.7 g/dL (3.4-5.0) Albumin/Globulin Ratio 0.6 (1.0-1.7) 0.5 (1.0-1.7) 0.5 (1.0-1.7) 0.5 (1.0- 1.7) White Blood Count 23.3 x10^3/uL (4.0-11.0) Red Blood Count 4.47 x10^6/uL (4.30-5.70) Hemoglobin 10.5 g/dL (13.0-17.5) Hematocrit 33.0 % (39.0-53.0) Mean Corpuscular Volume 74 fL (79-100) Mean Corpuscular Hemoglobin 24 pg (25-35) Mean Corpuscular Hemoglobin Concent 32 g/dL (31-37) Red Cell Distribution Width 18.9 % (11.5-14.5) Platelet Count 55 x10^3/uL (140-400) Direct Bilirubin 13.6 mg/dL (0.0-0.2) Results All relevant outside records, renal labs, imaging studies, telemetry/EKG's were reviewed. Other CxR 09/19 Stable bilateral perihilar and basilar opacities with coarse interstitial markings. CxR 09/18 1. No significant change in diffuse interstitial infiltrate likely superimposed on chronic interstitial changes. JAMEL LOPEZ MD Sep 19, 2019 09:17
[2019-09-19] MEDS: ALBUTEROL SULFATE 2.5 MG/3 ML NEBU. NEB SCH ×4 (09:36→19:29)
--- NOTE | 2019-09-19 09:42 | RAD ---
ABDOMEN COMPLETE History: Septic shock Comparison: None. Technique: Sonographic examination of the abdomen was performed and multiple grayscale and color Doppler static images were obtained. Findings: Liver is visualized and increased echotexture. The liver measures 13.3 cm. Portal flow is patent Common bile duct is normal in caliber, measuring 6.4 mm in diameter. Cholelithiasis within the neck of the gallbladder. Mild gallbladder wall thickening measures 0.4 cm. No pericholecystic fluid. Visualized pancreas is homogeneous. The right kidney is normal in echotexture and measures 10.4 x 5.1 x 4.5 cm. The left kidney is normal in echotexture and measures 9.9 x 5.6 x 4.8 cm. No hydronephrosis. No solid renal mass or cyst. No calculus. The spleen measures 8.0 cm. Not well visualized due to overlying bowel gas. Atheromatous calcification throughout the nonaneurysmal abdominal aorta. IVC is patent. IMPRESSION: 1. Cholelithiasis with mild gallbladder wall thickening. No pericholecystic fluid. HIDA scan can further evaluate gallbladder function if indicated. 2. Increased hepatic echotexture, may indicate steatosis. Electronically signed by: Joe Jacobo DO (09/19/2019 9:39 AM) [id number]
--- NOTE | 2019-09-19 10:50 | NUR ---
SS following up with discharge planning. SS phoned and faxed clinical updates to [facility], ; fax [phone], and [facility], ; fax [phone]. [facility] Accepted pt but cannot take on CRRT. SS awaiting acceptance from [facility] at this time. SS will continue to follow for discharge planning.
--- NOTE | 2019-09-19 10:54 | PDOC ---
PULMONARY PROGRESS NOTES Subjective INTUBATED 09/11 BY ANESTHESIA on AC MODE OFF SEDATION SINCE 09/18 UNDERGOING CRRT Vitals Vital Signs Date Time Temp Pulse Resp B/P (MAP) Pulse Ox O2 Delivery O2 Flow Rate FiO2 09/19/19 10:00 103 20 105/54 (71) 99 Ventilator 09/19/19 08:00 97.8 97.8 09/18/19 08:26 15.0 HEENT: Other Lungs: Crackles Cardiovascular: S1, S2 Abdomen: Soft, Non-tender, Other Extremities: Other (EDEMA) Skin: Warm Labs Laboratory Tests Test 09/17/19 11:45 09/17/19 18:17 09/18/19 00:10 09/18/19 06:05 White Blood Count 17.7 x10^3/uL (4.0-11.0) 20.6 x10^3/uL (4.0-11.0) 19.5 x10^3/uL (4.0-11.0) Red Blood Count 4.16 x10^6/uL (4.30-5.70) 4.21 x10^6/uL (4.30-5.70) 4.42 x10^6/uL (4.30-5.70) Hemoglobin 9.9 g/dL (13.0-17.5) 10.0 g/dL (13.0-17.5) 10.6 g/dL (13.0-17.5) Hematocrit 30.9 % (39.0-53.0) 31.2 % (39.0-53.0) 32.8 % (39.0-53.0) Mean Corpuscular Volume 74 fL (79-100) 74 fL (79-100) 74 fL (79-100) Mean Corpuscular Hemoglobin 24 pg (25-35) 24 pg (25-35) 24 pg (25-35) Mean Corpuscular Hemoglobin Concent 32 g/dL (31-37) 32 g/dL (31-37) 32 g/dL (31-37) Red Cell Distribution Width 19.0 % (11.5-14.5) 19.2 % (11.5-14.5) 18.9 % (11.5-14.5) Platelet Count 27 x10^3/uL (140-400) 36 x10^3/uL (140-400) 38 x10^3/uL (140-400) Neutrophils (%) (Auto) 98 % (31-73) 97 % (31-73) Lymphocytes (%) (Auto) 1 % (24-48) 1 % (24-48) Monocytes (%) (Auto) 1 % (0-9) 1 % (0-9) Eosinophils (%) (Auto) 0 % (0-3) 1 % (0-3) Basophils (%) (Auto) 0 % (0-3) 0 % (0-3) Neutrophils # (Auto) 17.3 x10^3/uL (1.8-7.7) 20.1 x10^3/uL (1.8-7.7) Lymphocytes # (Auto) 0.2 x10^3/uL (1.0-4.8) 0.3 x10^3/uL (1.0-4.8) Monocytes # (Auto) 0.1 x10^3/uL (0.0-1.1) 0.2 x10^3/uL (0.0-1.1) Eosinophils # (Auto) 0.1 x10^3/uL (0.0-0.7) 0.1 x10^3/uL (0.0-0.7) Basophils # (Auto) 0.0 x10^3/uL (0.0-0.2) 0.0 x10^3/uL (0.0-0.2) Sodium Level 141 mmol/L (136-145) 141 mmol/L (136-145) 141 mmol/L (136-145) 141 mmol/L (136-145) Potassium Level 5.0 mmol/L (3.5-5.1) 4.9 mmol/L (3.5-5.1) 5.0 mmol/L (3.5-5.1) 5.0 mmol/L (3.5-5.1) Chloride Level 106 mmol/L (98-107) 106 mmol/L (98-107) 108 mmol/L (98-107) 106 mmol/L (98-107) Carbon Dioxide Level 27 mmol/L (21-32) 28 mmol/L (21-32) 28 mmol/L (21-32) 26 mmol/L (21-32) Anion Gap 8 (6-14) 7 (6-14) 5 (6-14) 9 (6-14) Blood Urea Nitrogen 35 mg/dL (8-26) 36 mg/dL (8-26) 35 mg/dL (8-26) 33 mg/dL (8-26) Creatinine 1.3 mg/dL (0.7-1.3) 1.3 mg/dL (0.7-1.3) 1.2 mg/dL (0.7-1.3) 1.1 mg/dL (0.7-1.3) Estimated GFR (Cockcroft-Gault) 53.4 53.4 58.6 64.7 BUN/Creatinine Ratio 27 (6-20) 28 (6-20) 30 (6-20) Glucose Level 201 mg/dL (70-99) 173 mg/dL (70-99) 151 mg/dL (70-99) 152 mg/dL (70-99) Calcium Level 7.0 mg/dL (8.5-10.1) 7.0 mg/dL (8.5-10.1) 7.3 mg/dL (8.5-10.1) 7.4 mg/dL (8.5-10.1) Phosphorus Level 4.1 mg/dL (2.6-4.7) 3.8 mg/dL (2.6-4.7) 4.0 mg/dL (2.6-4.7) 3.9 mg/dL (2.6-4.7) Magnesium Level 2.7 mg/dL (1.8-2.4) 2.5 mg/dL (1.8-2.4) 2.7 mg/dL (1.8-2.4) 2.7 mg/dL (1.8-2.4) Total Bilirubin 11.9 mg/dL (0.2-1.0) 12.9 mg/dL (0.2-1.0) 14.4 mg/dL (0.2-1.0) Aspartate Amino Transf (AST/SGOT) 267 U/L (15-37) 253 U/L (15-37) 261 U/L (15-37) Alanine Aminotransferase (ALT/SGPT) 788 U/L (16-63) 766 U/L (16-63) 694 U/L (16-63) Alkaline Phosphatase 109 U/L (46-116) 120 U/L (46-116) 129 U/L (46-116) Total Protein 4.9 g/dL (6.4-8.2) 5.0 g/dL (6.4-8.2) 5.3 g/dL (6.4-8.2) Albumin 1.8 g/dL (3.4-5.0) 1.8 g/dL (3.4-5.0) 1.8 g/dL (3.4-5.0) Albumin/Globulin Ratio 0.6 (1.0-1.7) 0.6 (1.0-1.7) 0.5 (1.0-1.7) Test 09/18/19 13:00 09/18/19 18:15 09/18/19 23:30 09/19/19 05:40 Haptoglobin 18 mg/dL (34-200) Sodium Level 141 mmol/L (136-145) 139 mmol/L (136-145) 142 mmol/L (136-145) 139 mmol/L (136-145) Potassium Level 4.7 mmol/L (3.5-5.1) 4.7 mmol/L (3.5-5.1) 4.8 mmol/L (3.5-5.1) 4.9 mmol/L (3.5-5.1) Chloride Level 106 mmol/L (98-107) 106 mmol/L (98-107) 107 mmol/L (98-107) 104 mmol/L (98-107) Carbon Dioxide Level 27 mmol/L (21-32) 26 mmol/L (21-32) 27 mmol/L (21-32) 25 mmol/L (21-32) Anion Gap 8 (6-14) 7 (6-14) 8 (6-14) 10 (6-14) Blood Urea Nitrogen 34 mg/dL (8-26) 38 mg/dL (8-26) 35 mg/dL (8-26) 36 mg/dL (8-26) Creatinine 1.3 mg/dL (0.7-1.3) 1.4 mg/dL (0.7-1.3) 1.3 mg/dL (0.7-1.3) 1.2 mg/dL (0.7-1.3) Estimated GFR (Cockcroft-Gault) 53.4 49.0 53.4 58.6 BUN/Creatinine Ratio 26 (6-20) 27 (6-20) 27 (6-20) 30 (6-20) Glucose Level 150 mg/dL (70-99) 161 mg/dL (70-99) 156 mg/dL (70-99) 164 mg/dL (70-99) Calcium Level 7.4 mg/dL (8.5-10.1) 7.1 mg/dL (8.5-10.1) 6.9 mg/dL (8.5-10.1) 7.3 mg/dL (8.5-10.1) Phosphorus Level 3.5 mg/dL (2.6-4.7) 3.4 mg/dL (2.6-4.7) 3.8 mg/dL (2.6-4.7) Magnesium Level 2.7 mg/dL (1.8-2.4) 2.7 mg/dL (1.8-2.4) 2.5 mg/dL (1.8-2.4) 2.7 mg/dL (1.8-2.4) Total Bilirubin 15.4 mg/dL (0.2-1.0) 15.3 mg/dL (0.2-1.0) 16.2 mg/dL (0.2-1.0) 17.3 mg/dL (0.2-1.0) Aspartate Amino Transf (AST/SGOT) 248 U/L (15-37) 231 U/L (15-37) 244 U/L (15-37) 254 U/L (15-37) Alanine Aminotransferase (ALT/SGPT) 613 U/L (16-63) 547 U/L (16-63) 530 U/L (16-63) 514 U/L (16-63) Alkaline Phosphatase 128 U/L (46-116) 125 U/L (46-116) 128 U/L (46-116) 136 U/L (46-116) Total Protein 5.3 g/dL (6.4-8.2) 5.0 g/dL (6.4-8.2) 5.1 g/dL (6.4-8.2) 5.2 g/dL (6.4-8.2) Albumin 1.9 g/dL (3.4-5.0) 1.7 g/dL (3.4-5.0) 1.8 g/dL (3.4-5.0) 1.7 g/dL (3.4-5.0) Albumin/Globulin Ratio 0.6 (1.0-1.7) 0.5 (1.0-1.7) 0.5 (1.0-1.7) 0.5 (1.0-1.7) White Blood Count 23.3 x10^3/uL (4.0-11.0) Red Blood Count 4.47 x10^6/uL (4.30-5.70) Hemoglobin 10.5 g/dL (13.0-17.5) Hematocrit 33.0 % (39.0-53.0) Mean Corpuscular Volume 74 fL (79-100) Mean Corpuscular Hemoglobin 24 pg (25-35) Mean Corpuscular Hemoglobin Concent 32 g/dL (31-37) Red Cell Distribution Width 18.9 % (11.5-14.5) Platelet Count 55 x10^3/uL (140-400) Direct Bilirubin 13.6 mg/dL (0.0-0.2) Test 09/19/19 08:58 Ammonia < 10 mcmol/L (11-34) Laboratory Tests Test 09/18/19 13:00 09/18/19 18:15 09/18/19 23:30 09/19/19 05:40 Haptoglobin 18 mg/dL (34-200) Sodium Level 141 mmol/L (136-145) 139 mmol/L (136-145) 142 mmol/L (136-145) 139 mmol/L (136-145) Potassium Level 4.7 mmol/L (3.5-5.1) 4.7 mmol/L (3.5-5.1) 4.8 mmol/L (3.5-5.1) 4.9 mmol/L (3.5-5.1) Chloride Level 106 mmol/L (98-107) 106 mmol/L (98-107) 107 mmol/L (98-107) 104 mmol/L (98-107) Carbon Dioxide Level 27 mmol/L (21-32) 26 mmol/L (21-32) 27 mmol/L (21-32) 25 mmol/L (21-32) Anion Gap 8 (6-14) 7 (6-14) 8 (6-14) 10 (6-14) Blood Urea Nitrogen 34 mg/dL (8-26) 38 mg/dL (8-26) 35 mg/dL (8-26) 36 mg/dL (8-26) Creatinine 1.3 mg/dL (0.7-1.3) 1.4 mg/dL (0.7-1.3) 1.3 mg/dL (0.7-1.3) 1.2 mg/dL (0.7-1.3) Estimated GFR (Cockcroft-Gault) 53.4 49.0 53.4 58.6 BUN/Creatinine Ratio 26 (6-20) 27 (6-20) 27 (6-20) 30 (6-20) Glucose Level 150 mg/dL (70-99) 161 mg/dL (70-99) 156 mg/dL (70-99) 164 mg/dL (70-99) Calcium Level 7.4 mg/dL (8.5-10.1) 7.1 mg/dL (8.5-10.1) 6.9 mg/dL (8.5-10.1) 7.3 mg/dL (8.5-10.1) Phosphorus Level 3.5 mg/dL (2.6-4.7) 3.4 mg/dL (2.6-4.7) 3.8 mg/dL (2.6-4.7) Magnesium Level 2.7 mg/dL (1.8-2.4) 2.7 mg/dL (1.8-2.4) 2.5 mg/dL (1.8-2.4) 2.7 mg/dL (1.8-2.4) Total Bilirubin 15.4 mg/dL (0.2-1.0) 15.3 mg/dL (0.2-1.0) 16.2 mg/dL (0.2-1.0) 17.3 mg/dL (0.2-1.0) Aspartate Amino Transf (AST/SGOT) 248 U/L (15-37) 231 U/L (15-37) 244 U/L (15-37) 254 U/L (15-37) Alanine Aminotransferase (ALT/SGPT) 613 U/L (16-63) 547 U/L (16-63) 530 U/L (16-63) 514 U/L (16-63) Alkaline Phosphatase 128 U/L (46-116) 125 U/L (46-116) 128 U/L (46-116) 136 U/L (46-116) Total Protein 5.3 g/dL (6.4-8.2) 5.0 g/dL (6.4-8.2) 5.1 g/dL (6.4-8.2) 5.2 g/dL (6.4-8.2) Albumin 1.9 g/dL (3.4-5.0) 1.7 g/dL (3.4-5.0) 1.8 g/dL (3.4-5.0) 1.7 g/dL (3.4-5.0) Albumin/Globulin Ratio 0.6 (1.0-1.7) 0.5 (1.0-1.7) 0.5 (1.0-1.7) 0.5 (1.0- 1.7) White Blood Count 23.3 x10^3/uL (4.0-11.0) Red Blood Count 4.47 x10^6/uL (4.30-5.70) Hemoglobin 10.5 g/dL (13.0-17.5) Hematocrit 33.0 % (39.0-53.0) Mean Corpuscular Volume 74 fL (79-100) Mean Corpuscular Hemoglobin 24 pg (25-35) Mean Corpuscular Hemoglobin Concent 32 g/dL (31-37) Red Cell Distribution Width 18.9 % (11.5-14.5) Platelet Count 55 x10^3/uL (140-400) Direct Bilirubin 13.6 mg/dL (0.0-0.2) Test 09/19/19 08:58 Ammonia < 10 mcmol/L (11-34) Medications Active Scripts Medications Dose Route/Sig Max Daily Dose Days Date Category Naproxen 500 Mg Tablet 1 Tab PO PRN BID PRN 30 09/10/19 Reported Avodart (Dutasteride) 0.5 Mg Capsule 1 Cap PO DAILY 09/10/19 Reported Impression . IMPRESSION: 1. Acute hypoxemic respiratory failure/ARDS 2. SEPTIC SHOCK 3. Abnormal CT chest revealing bilateral pulmonary infiltrates. 4. Pneumonia, suspect gram-negative, gram-positive. 5. Possible acute pulmonary edema. 6. Possible interstitial lung disease/pulmonary fibrosis. 7. History of rheumatoid arthritis. 8. Atrial fibrillation with rapid ventricular response. 9. ACUTE MET ACIDOSIS, resolved, now resp alkalosis 10. ACUTE RENAL FAILURE US IMPRESSION: 1. Cholelithiasis with mild gallbladder wall thickening. No pericholecystic fluid. HIDA scan can further evaluate gallbladder function if indicated. 2. Increased hepatic echotexture, may indicate steatosis. IMPRESSION: 1. Stable life support devices. 2. Stable bilateral perihilar and basilar opacities with coarse interstitial markings. Plan . WILL HOLD SEDATION AND TRIAL ONCE AWAKE MAY TAKE A FEW DAYS TO CLEAR BODY REPEAT CXR REVIEWED IMPROVING RESTART TUBE FEEDING 3 ON 3 HOURS OFF CRRT ANTIBX PER ID DVT AND GI PROPH STEROIDS DECREASE CCT 30 MIN D/W RN AND RT D/W RT/RN VIRGEN ROME MD Sep 19, 2019 10:54
[2019-09-19 12:00] LABS: CALCIUM 7.5 mg/dL (8.5-10.1); CREATININE 1.2 mg/dL (0.7-1.3); GFR 58.6; MAGNESIUM 2.6 mg/dL (1.8-2.4); PHOSPHORUS 3.8 mg/dL (2.6-4.7); POTASSIUM 4.6 mmol/L (3.5-5.1)
--- NOTE | 2019-09-19 12:23 | NUR ---
Wound care: patient seen per wound care. Patient has multiple ischemic areas noted r/t prolonged vasopressor use. These areas were cleansed, assessed, measured, and pictured. Bilateral heels protected with foams, the rest of the areas were skin prepped if applicable or left open to air. RN aware of findings. Patient had small BM, patient cleaned and chux changed. Patient repositioned using wedge and turned to right side. Spoke with RN regarding POC. Bed lowered and dressing change instructions left in room. Will follow patient regarding wound care.
--- NOTE | 2019-09-19 17:32 | NUR ---
Pt has tolerated CRRT today well and has not required vasopressor support since 10 AM
[2019-09-19 17:45] LABS: CALCIUM 6.9 mg/dL (8.5-10.1); CREATININE 1.1 mg/dL (0.7-1.3); GFR 64.7; MAGNESIUM 2.5 mg/dL (1.8-2.4); PHOSPHORUS 3.8 mg/dL (2.6-4.7); POTASSIUM 4.6 mmol/L (3.5-5.1)
[2019-09-19 23:09] LABS: CALCIUM 7.5 mg/dL (8.5-10.1); CREATININE 1.1 mg/dL (0.7-1.3); GFR 64.7; POTASSIUM 4.8 mmol/L (3.5-5.1)
[2019-09-19 23:13] LABS: MAGNESIUM 2.6 mg/dL (1.8-2.4); PHOSPHORUS 3.7 mg/dL (2.6-4.7)
[2019-09-20] VITALS (23 sets, daily range): BP systolic 106–175; BP diastolic 58–95
[2019-09-20] MEDS: MORPHINE SULFATE 4 MG/ML VIAL. IV PRN (00:40)
[2019-09-20] MEDS: POTASSIUM CHLORIDE 15 MEQ in DIALYSIS SOLUTION BGK 0/2.5 5,000 ML IV SCH ×28 (03:38→23:41)
[2019-09-20 05:10] LABS: RED CELL DISTRIBUTION WIDTH 19.5 % (11.5-14.5)
[2019-09-20 05:11] LABS: HEMATOCRIT 33.2 % (39.0-53.0); HEMOGLOBIN 10.6 g/dL (13.0-17.5); RED BLOOD COUNT 4.49 x10^6/uL (4.30-5.70); WHITE BLOOD COUNT 29.9 x10^3/uL (4.0-11.0)
[2019-09-20 05:37] LABS: ALBUMIN 1.8 g/dL (3.4-5.0); ALBUMIN/GLOBULIN RATIO 0.5 (1.0-1.7); CALCIUM 7.5 mg/dL (8.5-10.1); GFR 72.3; MAGNESIUM 2.7 mg/dL (1.8-2.4); PHOSPHORUS 3.7 mg/dL (2.6-4.7); POTASSIUM 4.6 mmol/L (3.5-5.1); TOTAL BILIRUBIN 20.4 mg/dL (0.2-1.0); TOTAL PROTEIN 5.3 g/dL (6.4-8.2)
--- NOTE | 2019-09-20 07:31 | PDOC ---
Infectious Disease Note Subjective: Subjective Pt intubated Off pressors undergoing CRRT D/W RN ROS: ROS unable to obtain Vital Signs: Vital Signs Vital Signs Date Time Temp Pulse Resp B/P (MAP) Pulse Ox O2 Delivery O2 Flow Rate FiO2 09/20/19 06:00 111 17 119/70 (86) 97 Ventilator 09/20/19 04:00 98.0 98.0 09/20/19 01:12 15.0 Physical Exam: PHYSICAL EXAM GENERAL: orally intubated on vent HEENT: icteric, ETT +, large black dorsal tongue lesion ,ventral tongue ulceration , cannot visualize the whole mouth NECK: Supple, RT IJ and central line + looks clean LUNGS: dec bs at the [facility] HEART: S1, S2 regular, no murmurs ABDOMEN: Soft,mildly distended, nontender, BS + EXTREMITIES: +edema, purplish discoloration of toes SKIN: Unremarkable. NEUROLOGIC: intubated Medications: Inpatient Meds: Current Medications Medications (Trade) Dose Ordered Sig/Veena Start Time Stop Time Status Last Admin Dose Admin Albuterol Sulfate (Ventolin Neb Soln) 2.5 mg RTQID 09/10/19 08:00 09/19/19 19:29 2.5 MG Amiodarone HCl 450 mg/Dextrose 259 ml @ 17 mls/hr CONT PRN 09/10/19 09:00 09/11/19 02:33 17 MLS/HR Azithromycin (Zithromax) 250 mg DAILY 09/10/19 09:00 09/10/19 13:35 DC 09/10/19 08:38 250 MG Bisacodyl (Dulcolax Supp) 10 mg PRN DAILY PRN 09/10/19 10:00 09/10/19 10:00 10 MG Calcium Chloride 12.5 meq/ Bicarbonate Dialysis Soln w/ out KCl 5,008.9286 ml @ 1,000 mls/hr Q5H1M 09/12/19 13:00 09/12/19 12:18 DC Calcium Chloride 12.5 meq/ Potassium Chloride 5 meq/ Bicarbonate Dialysis Soln w/ out KCl 5,011.4286 ml @ 1,000 mls/hr Q5H1M 09/17/19 12:00 09/17/19 18:33 DC 09/17/19 13:05 1,000 MLS/HR Ceftriaxone Sodium (Rocephin) 1 gm Q24H 09/10/19 12:00 09/10/19 13:35 DC 09/10/19 12:55 1 GM Daptomycin 320 mg/ Sodium Chloride 50 ml @ 100 mls/hr Q24H 09/13/19 08:00 09/19/19 08:12 100 MLS/HR Diltiazem HCl 125 mg/Dextrose 125 ml @ 0 mls/hr CONT PRN 09/10/19 06:30 09/11/19 05:40 10 MLS/HR Dutasteride (Avodart) 0.5 mg DAILY 09/10/19 09:00 09/15/19 08:09 0.5 MG Epinephrine HCl 4 mg/Sodium Chloride 254 ml @ 28.061 mls/ hr CONT PRN 09/11/19 15:45 09/13/19 15:56 DC Fentanyl Citrate (Fentanyl 600 Mcg/30 ml CONFERENCE MANAGER) 600 mcg STK-MED ONCE 09/11/19 11:28 09/12/19 15:46 DC Fluconazole/ Sodium Chloride 50 ml @ 100 mls/hr Q24H 09/16/19 08:15 09/16/19 08:14 DC Furosemide (Lasix) 40 mg 1X ONCE 09/10/19 15:45 09/10/19 15:46 DC 09/10/19 16:38 40 MG Influenza Virus Vaccine Quadrival (Afluria Quad 2019-20 (3yr Up) Syringe) 0.5 ml ONCE ONCE 09/11/19 09:00 09/11/19 09:01 DC Lactobacillus Rhamnosus (Culturelle) 1 cap BID 09/10/19 09:00 09/12/19 09:15 DC 09/11/19 21:16 1 CAP Levofloxacin/ Dextrose 100 ml @ 100 mls/hr Q24H 09/12/19 09:00 09/19/19 08:00 DC 09/18/19 13:07 100 MLS/HR Lidocaine HCl (Buffered Lidocaine 1%) 3 ml 1X ONCE 09/11/19 17:15 09/11/19 17:16 DC 09/11/19 17:14 3 ML Lidocaine HCl (Lta Kit) 4 ml STK-MED ONCE 09/10/19 16:00 09/12/19 09:29 DC Lorazepam (Ativan Inj) 0.5 mg 1X ONCE 09/10/19 11:45 09/10/19 11:47 DC 09/10/19 11:48 0.5 MG Meropenem 500 mg/ Sodium Chloride 50 ml @ 100 mls/hr Q12H 09/15/19 21:00 09/19/19 21:00 100 MLS/HR Methylprednisolone Sodium Succinate (SOLU-Medrol 40MG VIAL) 40 mg Q12HR 09/16/19 21:00 09/19/19 20:59 40 MG Midazolam HCl 100 ml @ 0 mls/hr CONT PRN 09/11/19 10:15 09/17/19 22:50 5 MLS/HR Morphine Sulfate (Morphine Sulfate) 4 mg PRN Q2HR PRN 09/10/19 21:15 09/20/19 00:40 4 MG Naproxen (Naprosyn) 500 mg PRN BID PRN 09/10/19 06:30 09/12/19 11:01 DC Norepinephrine Bitartrate 250 ml @ 13.81 mls/ hr CONT PRN 09/11/19 10:45 09/18/19 20:17 7.5 MLS/HR Pantoprazole Sodium (PROTONIX VIAL for IV PUSH) 40 mg DAILYAC 09/12/19 12:00 09/19/19 08:04 40 MG Phytonadione (Vitamin K Ampule) 10 mg 1X ONCE 09/16/19 08:45 09/16/19 08:46 UNV Phytonadione 1 mg/ Dextrose 50.1 ml @ 102 mls/hr 1X ONCE 09/12/19 17:00 09/12/19 17:29 DC 09/12/19 17:07 102 MLS/HR Piperacillin Sod/ Tazobactam Sod 3.375 gm/Sodium Chloride 50 ml @ 100 mls/hr 1X ONCE 09/13/19 22:00 09/13/19 22:29 DC 09/13/19 22:27 100 MLS/HR Potassium Chloride 10 meq/ Bicarbonate Dialysis Soln w/ out KCl 5,005 ml @ 1,000 mls/hr Q5H1M 09/12/19 13:00 09/13/19 08:36 DC 09/13/19 06:05 1,000 MLS/HR Potassium Chloride 15 meq/ Bicarbonate Dialysis Soln w/ out KCl 5,007.5 ml @ 1,000 mls/ hr Q5H1M 09/17/19 16:00 09/20/19 03:38 1,000 MLS/HR Potassium Chloride 20 meq/ Bicarbonate Dialysis Soln w/ out KCl 5,010 ml @ 1,000 mls/hr Q5H1M 09/15/19 13:45 09/17/19 07:39 DC 09/17/19 02:18 1,000 MLS/HR Propofol 100 ml @ 0 mls/hr CONT PRN 09/11/19 10:15 09/13/19 15:56 DC Sodium Bicarbonate 100 meq/Dextrose 1,100 ml @ 75 mls/hr [id number] 09/11/19 09:00 09/13/19 15:56 DC 09/13/19 06:03 75 MLS/HR Sodium Bicarbonate (Sodium Bicarb Adult 8.4% Syr) 100 meq 1X ONCE 09/11/19 11:15 09/11/19 11:16 DC 09/11/19 11:28 100 MEQ Sodium Chloride 500 ml @ 500 mls/hr 1X ONCE 09/11/19 21:15 09/11/19 22:14 DC 09/11/19 21:21 500 MLS/HR Sodium Chloride (Normal Saline Flush) 10 ml QSHIFT PRN 09/10/19 07:00 Succinylcholine Chloride (Anectine) 200 mg STK-MED ONCE 09/11/19 10:57 09/11/19 10:57 DC Vancomycin HCl (Vanco Per Pharmacy) 1 each PRN DAILY PRN 09/10/19 14:00 09/11/19 07:59 DC 09/10/19 16:55 1 EACH Vancomycin HCl (Vancomycin Trough Level) 1 each 1X ONCE 09/12/19 16:00 09/11/19 08:01 DC Vancomycin HCl 1.5 gm/Sodium Chloride 500 ml @ 250 mls/hr 1X ONCE 09/10/19 14:00 09/10/19 15:59 DC 09/10/19 16:39 250 MLS/HR Vancomycin HCl 1 gm/Sodium Chloride 250 ml @ 250 mls/hr Q24H 09/11/19 16:30 09/11/19 07:59 DC Vasopressin 40 unit/Dextrose 102 ml @ 6 mls/hr CONT PRN 09/11/19 11:30 09/16/19 22:52 6 MLS/HR Labs: Lab Laboratory Tests Test 09/19/19 08:58 09/19/19 11:01 09/19/19 17:10 09/19/19 22:55 Ammonia < 10 mcmol/L (11-34) Sodium Level 140 mmol/L (136-145) 140 mmol/L (136-145) 139 mmol/L (136-145) Potassium Level 4.6 mmol/L (3.5-5.1) 4.6 mmol/L (3.5-5.1) 4.8 mmol/L (3.5-5.1) Chloride Level 104 mmol/L (98-107) 106 mmol/L (98-107) 105 mmol/L (98-107) Carbon Dioxide Level 27 mmol/L (21-32) 27 mmol/L (21-32) 28 mmol/L (21-32) Anion Gap 9 (6-14) 7 (6-14) 6 (6-14) Blood Urea Nitrogen 35 mg/dL (8-26) 33 mg/dL (8-26) 33 mg/dL (8-26) Creatinine 1.2 mg/dL (0.7-1.3) 1.1 mg/dL (0.7-1.3) 1.1 mg/dL (0.7-1.3) Estimated GFR (Cockcroft-Gault) 58.6 64.7 64.7 Glucose Level 157 mg/dL (70-99) 157 mg/dL (70-99) 141 mg/dL (70-99) Calcium Level 7.5 mg/dL (8.5-10.1) 6.9 mg/dL (8.5-10.1) 7.5 mg/dL (8.5-10.1) Phosphorus Level 3.8 mg/dL (2.6-4.7) 3.8 mg/dL (2.6-4.7) 3.7 mg/dL (2.6-4.7) Magnesium Level 2.6 mg/dL (1.8-2.4) 2.5 mg/dL (1.8-2.4) 2.6 mg/dL (1.8-2.4) Test 09/20/19 04:45 White Blood Count 29.9 x10^3/uL (4.0-11.0) Red Blood Count 4.49 x10^6/uL (4.30-5.70) Hemoglobin 10.6 g/dL (13.0-17.5) Hematocrit 33.2 % (39.0-53.0) Mean Corpuscular Volume 74 fL (79-100) Mean Corpuscular Hemoglobin 24 pg (25-35) Mean Corpuscular Hemoglobin Concent 32 g/dL (31-37) Red Cell Distribution Width 19.5 % (11.5-14.5) Platelet Count 70 x10^3/uL (140-400) Sodium Level 138 mmol/L (136-145) Potassium Level 4.6 mmol/L (3.5-5.1) Chloride Level 103 mmol/L (98-107) Carbon Dioxide Level 26 mmol/L (21-32) Anion Gap 9 (6-14) Blood Urea Nitrogen 33 mg/dL (8-26) Creatinine 1.0 mg/dL (0.7-1.3) Estimated GFR (Cockcroft-Gault) 72.3 BUN/Creatinine Ratio 33 (6-20) Glucose Level 144 mg/dL (70-99) Calcium Level 7.5 mg/dL (8.5-10.1) Phosphorus Level 3.7 mg/dL (2.6-4.7) Magnesium Level 2.7 mg/dL (1.8-2.4) Total Bilirubin 20.4 mg/dL (0.2-1.0) Aspartate Amino Transf (AST/SGOT) 276 U/L (15-37) Alanine Aminotransferase (ALT/SGPT) 440 U/L (16-63) Alkaline Phosphatase 151 U/L (46-116) Total Protein 5.3 g/dL (6.4-8.2) Albumin 1.8 g/dL (3.4-5.0) Albumin/Globulin Ratio 0.5 (1.0-1.7) Micro reviewed bc neg throat c/s neg sputum neg Objective: Assessment: Pt with multiorgan failure 1. Respiratory failure. Pulmonary infiltrate. likely respiratory infection though w/u neg with acute respiratory distress syndrome.on empiric broad spectrum, sputum c/s neg, RVP neg, legionella neg, coccidiodes neg, cmv neg, ebv not done 2. Leukocytosis.reactive 3 Acute kidney injury, multifactorial from hypotension on CRRT, 4. Hepatic failure ,hyperbilirubinemia, multifactorial including likely shock liver U/S Cholelithiasis with mild gallbladder wall thickening. No pericholecystic fluid. hepatic steatosis. 5. DIC 6 History of rheumatoid arthritis, had been on naproxen. 7 .A fib with RVR and Circulatory failure. 8. Thrombocytopenia from DIC 9. GI Bleed 10. Encephalopathy 11.Black tongue lesion Plan: Plan of Care cont merrem ( 09/15);was on zosyn, latter dc due to thrombocytopenia from dic DC Daptomycin 09/20 off Levaquin 09/19 cont supportive care f/u c/s and labs Condition critical Prognosis very poor oral care ENT not available per staff Oral maxillo not available per team till Sep 28 D/W Nursing staff ENMANUEL GAN MD Sep 20, 2019 07:31
[2019-09-20] MEDS: ALBUTEROL SULFATE 2.5 MG/3 ML NEBU. NEB SCH ×4 (07:48→19:48)
[2019-09-20] MEDS: PANTOPRAZOLE IV PUSH 40 MG VIAL. IVP SCH (08:00)
[2019-09-20] MEDS: MEROPENEM 500 MG in IV NORMAL SALINE 50ML 50 ML IV SCH ×2 (08:03→21:14)
[2019-09-20] MEDS: methylPREDNISolone SOD SUCC PF 40 MG/ML VIAL. IV SCH ×2 (08:04→21:14)
--- NOTE | 2019-09-20 08:08 | RAD ---
EXAM: CHEST ONE VIEW. HISTORY: Renal failure. COMPARISON: 09/19/2019. FINDINGS: A frontal view of the chest is obtained. An endotracheal tube has its tip just below the thoracic inlet, 8.5 cm above the lang. A nasogastric tube has its tip below the inferior margin of the view. Right internal jugular hemodialysis and central venous catheters have their tips in the right atrium. There is rotation to the left. Bibasilar interstitial opacities are consistent with interstitial lung disease and superimposed pulmonary edema. There is no pneumothorax or clear pleural effusion. The heart is mildly enlarged. There are atherosclerotic calcifications of the aorta. IMPRESSION: 1. Endotracheal tube tip just below the thoracic inlet. Advancement suggested. 2. Mild pulmonary edema superimposed on interstitial lung disease. Electronically signed by: Flakita Greco MD (09/20/2019 8:06 AM) [facility]
--- NOTE | 2019-09-20 08:31 | PN ---
DATE: 09/20/2019 SUBJECTIVE: The patient is resting, slightly propped up in bed, continued to be intubated, mechanically ventilated. He is off sedation, off vasopressors. However, he continued to be minimally responsive, continues to be on continuous renal replacement therapy. PHYSICAL EXAMINATION: GENERAL: On examining him this morning, he looked pale, but no jaundice, cyanosis, or thyromegaly. No jugular venous distention. No lower limb edema. He has generalized anasarca. VITAL SIGNS: His heart rate was 103, blood pressure was 131/74, temperature was 98, respiratory rate was 20, and oxygen saturation was 99% on FiO2 of 40%. HEAD, EYES, EARS, NOSE, AND THROAT: Showed normocephalic, atraumatic. He has orotracheal and orogastric tube in place. NECK: Supple. HEART: Normal first and second heart sounds. No gallop, rub, or murmur. CHEST: Clear to auscultation. No crepitation or rhonchi. ABDOMEN: Distended, soft, nontender. NEUROLOGIC: He continues to be encephalopathic. His intake over the last 24 hours was 3100, output was 700. LABORATORY DATA: As of this morning, his white cell count was 29,900, hemoglobin 10.6, hematocrit 33, MCV 74, and platelet count of 70,000. His chemistry showed a serum sodium 138, potassium 4.6, chloride 103, bicarbonate 26, anion gap of 9, BUN 33, creatinine 1. Estimated GFR was 72 mL per minute. His glucose 144, calcium was 7.5, phosphorus 3.7, magnesium 2.7. Total bilirubin is up to 20. AST, ALT, and alkaline phosphatase are elevated. Ammonia was only 10. His total protein was 5.3, albumin was 1.8. ASSESSMENT: 1. Acute respiratory failure secondary to acute respiratory distress syndrome, continues to be intubated, mechanically ventilated, maintaining his oxygen saturation at 93% on FiO2 of 40%, septic shock requiring vasopressor and IV antibiotic, resolved. The patient is off the vasopressors and blood pressure maintained. 2. Community-acquired pneumonia. 3. Acute kidney injury, likely to acute tubular necrosis secondary to sepsis. The patient continues to be completely anuric, currently on continuous renal replacement therapy and tolerating it well. 4. Hypertension, for which he was on Levophed, vasopressin, and epinephrine; all of that were discontinued. 5. Deranged liver enzymes with extremely elevated bilirubin. 6. Rheumatoid arthritis. 7. Possible interstitial lung disease and pulmonary fibrosis. 8. Atrial fibrillation with rapid ventricular response, for which he was cardioverted. 9. Thrombocytopenia, slightly improving. Today's platelet up to 70,000. 10. High gastric residual, improving. He continues to be on tube feeding. 11. He has what looked like an ischemic area on the tip of his tongue. PLAN: To continue mechanical ventilation and wean as tolerated. Continue nutritional support. Continue with IV antibiotic as per Infectious Disease. Continue with renal replacement therapy. So far, he continues to be unresponsive. INGRIS FINCH MD DR: JOSIANE/jose JOB#: [id number] / [id number]
[2019-09-20] MEDS: DUTASTERIDE 0.5 MG CAPSULE PO SCH (08:39)
--- NOTE | 2019-09-20 09:23 | PDOC ---
PULMONARY PROGRESS NOTES Subjective INTUBATED 09/11 BY ANESTHESIA on AC MODE OFF SEDATION SINCE 09/18 UNDERGOING CRRT NO OVERNIGHT EVENTS Vitals Vital Signs Date Time Temp Pulse Resp B/P (MAP) Pulse Ox O2 Delivery O2 Flow Rate FiO2 09/20/19 09:00 105 20 172/91 (118) 100 Ventilator 09/20/19 08:00 98.4 98.4 09/20/19 01:12 15.0 Lungs: Clear Cardiovascular: S1, S2 Abdomen: Soft, Non-tender, Other Extremities: Other (EDEMA) Skin: Warm Labs Laboratory Tests Test 09/18/19 13:00 09/18/19 18:15 09/18/19 23:30 09/19/19 05:40 Haptoglobin 18 mg/dL (34-200) Sodium Level 141 mmol/L (136-145) 139 mmol/L (136-145) 142 mmol/L (136-145) 139 mmol/L (136-145) Potassium Level 4.7 mmol/L (3.5-5.1) 4.7 mmol/L (3.5-5.1) 4.8 mmol/L (3.5-5.1) 4.9 mmol/L (3.5-5.1) Chloride Level 106 mmol/L (98-107) 106 mmol/L (98-107) 107 mmol/L (98-107) 104 mmol/L (98-107) Carbon Dioxide Level 27 mmol/L (21-32) 26 mmol/L (21-32) 27 mmol/L (21-32) 25 mmol/L (21-32) Anion Gap 8 (6-14) 7 (6-14) 8 (6-14) 10 (6-14) Blood Urea Nitrogen 34 mg/dL (8-26) 38 mg/dL (8-26) 35 mg/dL (8-26) 36 mg/dL (8-26) Creatinine 1.3 mg/dL (0.7-1.3) 1.4 mg/dL (0.7-1.3) 1.3 mg/dL (0.7-1.3) 1.2 mg/dL (0.7-1.3) Estimated GFR (Cockcroft-Gault) 53.4 49.0 53.4 58.6 BUN/Creatinine Ratio 26 (6-20) 27 (6-20) 27 (6-20) 30 (6-20) Glucose Level 150 mg/dL (70-99) 161 mg/dL (70-99) 156 mg/dL (70-99) 164 mg/dL (70-99) Calcium Level 7.4 mg/dL (8.5-10.1) 7.1 mg/dL (8.5-10.1) 6.9 mg/dL (8.5-10.1) 7.3 mg/dL (8.5-10.1) Phosphorus Level 3.5 mg/dL (2.6-4.7) 3.4 mg/dL (2.6-4.7) 3.8 mg/dL (2.6-4.7) Magnesium Level 2.7 mg/dL (1.8-2.4) 2.7 mg/dL (1.8-2.4) 2.5 mg/dL (1.8-2.4) 2.7 mg/dL (1.8-2.4) Total Bilirubin 15.4 mg/dL (0.2-1.0) 15.3 mg/dL (0.2-1.0) 16.2 mg/dL (0.2-1.0) 17.3 mg/dL (0.2-1.0) Aspartate Amino Transf (AST/SGOT) 248 U/L (15-37) 231 U/L (15-37) 244 U/L (15-37) 254 U/L (15-37) Alanine Aminotransferase (ALT/SGPT) 613 U/L (16-63) 547 U/L (16-63) 530 U/L (16-63) 514 U/L (16-63) Alkaline Phosphatase 128 U/L (46-116) 125 U/L (46-116) 128 U/L (46-116) 136 U/L (46-116) Total Protein 5.3 g/dL (6.4-8.2) 5.0 g/dL (6.4-8.2) 5.1 g/dL (6.4-8.2) 5.2 g/dL (6.4-8.2) Albumin 1.9 g/dL (3.4-5.0) 1.7 g/dL (3.4-5.0) 1.8 g/dL (3.4-5.0) 1.7 g/dL (3.4-5.0) Albumin/Globulin Ratio 0.6 (1.0-1.7) 0.5 (1.0-1.7) 0.5 (1.0-1.7) 0.5 (1.0- 1.7) White Blood Count 23.3 x10^3/uL (4.0-11.0) Red Blood Count 4.47 x10^6/uL (4.30-5.70) Hemoglobin 10.5 g/dL (13.0-17.5) Hematocrit 33.0 % (39.0-53.0) Mean Corpuscular Volume 74 fL (79-100) Mean Corpuscular Hemoglobin 24 pg (25-35) Mean Corpuscular Hemoglobin Concent 32 g/dL (31-37) Red Cell Distribution Width 18.9 % (11.5-14.5) Platelet Count 55 x10^3/uL (140-400) Direct Bilirubin 13.6 mg/dL (0.0-0.2) Hepatitis B Surface Antigen Nonreactive (Nonreactive) Test 09/19/19 08:58 09/19/19 11:01 09/19/19 17:10 09/19/19 22:55 Ammonia < 10 mcmol/L (11-34) Sodium Level 140 mmol/L (136-145) 140 mmol/L (136-145) 139 mmol/L (136-145) Potassium Level 4.6 mmol/L (3.5-5.1) 4.6 mmol/L (3.5-5.1) 4.8 mmol/L (3.5-5.1) Chloride Level 104 mmol/L (98-107) 106 mmol/L (98-107) 105 mmol/L (98-107) Carbon Dioxide Level 27 mmol/L (21-32) 27 mmol/L (21-32) 28 mmol/L (21-32) Anion Gap 9 (6-14) 7 (6-14) 6 (6-14) Blood Urea Nitrogen 35 mg/dL (8-26) 33 mg/dL (8-26) 33 mg/dL (8-26) Creatinine 1.2 mg/dL (0.7-1.3) 1.1 mg/dL (0.7-1.3) 1.1 mg/dL (0.7-1.3) Estimated GFR (Cockcroft-Gault) 58.6 64.7 64.7 Glucose Level 157 mg/dL (70-99) 157 mg/dL (70-99) 141 mg/dL (70-99) Calcium Level 7.5 mg/dL (8.5-10.1) 6.9 mg/dL (8.5-10.1) 7.5 mg/dL (8.5-10.1) Phosphorus Level 3.8 mg/dL (2.6-4.7) 3.8 mg/dL (2.6-4.7) 3.7 mg/dL (2.6-4.7) Magnesium Level 2.6 mg/dL (1.8-2.4) 2.5 mg/dL (1.8-2.4) 2.6 mg/dL (1.8-2.4) Test 09/20/19 04:45 White Blood Count 29.9 x10^3/uL (4.0-11.0) Red Blood Count 4.49 x10^6/uL (4.30-5.70) Hemoglobin 10.6 g/dL (13.0-17.5) Hematocrit 33.2 % (39.0-53.0) Mean Corpuscular Volume 74 fL (79-100) Mean Corpuscular Hemoglobin 24 pg (25-35) Mean Corpuscular Hemoglobin Concent 32 g/dL (31-37) Red Cell Distribution Width 19.5 % (11.5-14.5) Platelet Count 70 x10^3/uL (140-400) Sodium Level 138 mmol/L (136-145) Potassium Level 4.6 mmol/L (3.5-5.1) Chloride Level 103 mmol/L (98-107) Carbon Dioxide Level 26 mmol/L (21-32) Anion Gap 9 (6-14) Blood Urea Nitrogen 33 mg/dL (8-26) Creatinine 1.0 mg/dL (0.7-1.3) Estimated GFR (Cockcroft-Gault) 72.3 BUN/Creatinine Ratio 33 (6-20) Glucose Level 144 mg/dL (70-99) Calcium Level 7.5 mg/dL (8.5-10.1) Phosphorus Level 3.7 mg/dL (2.6-4.7) Magnesium Level 2.7 mg/dL (1.8-2.4) Total Bilirubin 20.4 mg/dL (0.2-1.0) Aspartate Amino Transf (AST/SGOT) 276 U/L (15-37) Alanine Aminotransferase (ALT/SGPT) 440 U/L (16-63) Alkaline Phosphatase 151 U/L (46-116) Total Protein 5.3 g/dL (6.4-8.2) Albumin 1.8 g/dL (3.4-5.0) Albumin/Globulin Ratio 0.5 (1.0-1.7) Laboratory Tests Test 09/19/19 11:01 09/19/19 17:10 09/19/19 22:55 09/20/19 04:45 Sodium Level 140 mmol/L (136-145) 140 mmol/L (136-145) 139 mmol/L (136-145) 138 mmol/L (136-145) Potassium Level 4.6 mmol/L (3.5-5.1) 4.6 mmol/L (3.5-5.1) 4.8 mmol/L (3.5-5.1) 4.6 mmol/L (3.5-5.1) Chloride Level 104 mmol/L (98-107) 106 mmol/L (98-107) 105 mmol/L (98-107) 103 mmol/L (98-107) Carbon Dioxide Level 27 mmol/L (21-32) 27 mmol/L (21-32) 28 mmol/L (21-32) 26 mmol/L (21-32) Anion Gap 9 (6-14) 7 (6-14) 6 (6-14) 9 (6-14) Blood Urea Nitrogen 35 mg/dL (8-26) 33 mg/dL (8-26) 33 mg/dL (8-26) 33 mg/dL (8-26) Creatinine 1.2 mg/dL (0.7-1.3) 1.1 mg/dL (0.7-1.3) 1.1 mg/dL (0.7-1.3) 1.0 mg/dL (0.7-1.3) Estimated GFR (Cockcroft-Gault) 58.6 64.7 64.7 72.3 Glucose Level 157 mg/dL (70-99) 157 mg/dL (70-99) 141 mg/dL (70-99) 144 mg/dL (70-99) Calcium Level 7.5 mg/dL (8.5-10.1) 6.9 mg/dL (8.5-10.1) 7.5 mg/dL (8.5-10.1) 7.5 mg/dL (8.5-10.1) Phosphorus Level 3.8 mg/dL (2.6-4.7) 3.8 mg/dL (2.6-4.7) 3.7 mg/dL (2.6-4.7) 3.7 mg/dL (2.6-4.7) Magnesium Level 2.6 mg/dL (1.8-2.4) 2.5 mg/dL (1.8-2.4) 2.6 mg/dL (1.8-2.4) 2.7 mg/dL (1.8-2.4) White Blood Count 29.9 x10^3/uL (4.0-11.0) Red Blood Count 4.49 x10^6/uL (4.30-5.70) Hemoglobin 10.6 g/dL (13.0-17.5) Hematocrit 33.2 % (39.0-53.0) Mean Corpuscular Volume 74 fL (79-100) Mean Corpuscular Hemoglobin 24 pg (25-35) Mean Corpuscular Hemoglobin Concent 32 g/dL (31-37) Red Cell Distribution Width 19.5 % (11.5-14.5) Platelet Count 70 x10^3/uL (140-400) BUN/Creatinine Ratio 33 (6-20) Total Bilirubin 20.4 mg/dL (0.2-1.0) Aspartate Amino Transf (AST/SGOT) 276 U/L (15-37) Alanine Aminotransferase (ALT/SGPT) 440 U/L (16-63) Alkaline Phosphatase 151 U/L (46-116) Total Protein 5.3 g/dL (6.4-8.2) Albumin 1.8 g/dL (3.4-5.0) Albumin/Globulin Ratio 0.5 (1.0-1.7) Medications Active Scripts Medications Dose Route/Sig Max Daily Dose Days Date Category Naproxen 500 Mg Tablet 1 Tab PO PRN BID PRN 30 09/10/19 Reported Avodart (Dutasteride) 0.5 Mg Capsule 1 Cap PO DAILY 09/10/19 Reported Impression . IMPRESSION: 1. Acute hypoxemic respiratory failure/ARDS 2. SEPTIC SHOCK 3. Abnormal CT chest revealing bilateral pulmonary infiltrates. 4. Pneumonia, suspect gram-negative, gram-positive. 5. Possible acute pulmonary edema. 6. Possible interstitial lung disease/pulmonary fibrosis. 7. History of rheumatoid arthritis. 8. Atrial fibrillation with rapid ventricular response. 9. ACUTE MET ACIDOSIS, 10. ACUTE RENAL FAILURE 11. MET/TOXIC ENCE US IMPRESSION: 1. Cholelithiasis with mild gallbladder wall thickening. No pericholecystic fluid. HIDA scan can further evaluate gallbladder function if indicated. 2. Increased hepatic echotexture, may indicate steatosis. IMPRESSION: 1. Stable life support devices. 2. Stable bilateral perihilar and basilar opacities with coarse interstitial markings. Plan . WILL HOLD SEDATION AND TRIAL ONCE AWAKE THIS MAY TAKE UP TO A WEEK TO CLEAR BODY REPEAT CXR REVIEWED IMPROVING RESTART TUBE FEEDING RESIDUAL BETTER NOW CRRT ANTIBX PER ID DVT AND GI PROPH STEROIDS DECREASE CCT 30 MIN D/W RN AND RT D/W RT/RN VIRGEN ROME MD Sep 20, 2019 09:23
--- NOTE | 2019-09-20 11:17 | PDOC ---
SUBJECTIVE ROS Intubated,minimally responsive OBJECTIVE Vital Signs Vital Signs Date Time Temp Pulse Resp B/P (MAP) Pulse Ox O2 Delivery O2 Flow Rate FiO2 09/20/19 11:00 98 20 146/76 (99) 100 Ventilator 09/20/19 08:00 98.4 98.4 09/20/19 01:12 15.0 I & 0 Intake and Output 09/20/19 07:00 Intake Total 1133 ml Output Total 0 ml Balance 1133 ml Intake Oral 200 ml IV Total 181 ml Tube Feeding 752 ml Output Urine Total 0 ml PHYSICAL EXAM Physical Exam GENERAL: orally intubated on vent HEENT: Orally intubated NECK: Supple, LUNGS: Clear. HEART: S1, S2 regular. ABDOMEN: Soft, EXTREMITIES: No edema, cyanosis. SKIN: Jaundice . 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 Pneumonia Possible interstitial lung disease/pulmonary fibrosis. History of rheumatoid arthritis. Atrial fibrillation with rapid ventricular response. Cardioverted Discussed with family and RN at bedside COMMENT/RELEVANT DATA Meds Current Medications Medications (Trade) Dose Ordered Sig/Veena Start Time Stop Time Status Last Admin Dose Admin Albuterol Sulfate (Ventolin Neb Soln) 2.5 mg RTQID 09/10/19 08:00 09/20/19 07:48 2.5 MG Amiodarone HCl 450 mg/Dextrose 259 ml @ 17 mls/hr CONT PRN 09/10/19 09:00 09/11/19 02:33 17 MLS/HR Azithromycin (Zithromax) 250 mg DAILY 09/10/19 09:00 09/10/19 13:35 DC 09/10/19 08:38 250 MG Bisacodyl (Dulcolax Supp) 10 mg PRN DAILY PRN 09/10/19 10:00 09/10/19 10:00 10 MG Calcium Chloride 12.5 meq/ Bicarbonate Dialysis Soln w/ out KCl 5,008.9286 ml @ 1,000 mls/hr Q5H1M 09/12/19 13:00 09/12/19 12:18 DC Calcium Chloride 12.5 meq/ Potassium Chloride 5 meq/ Bicarbonate Dialysis Soln w/ out KCl 5,011.4286 ml @ 1,000 mls/hr Q5H1M 09/17/19 12:00 09/17/19 18:33 DC 09/17/19 13:05 1,000 MLS/HR Ceftriaxone Sodium (Rocephin) 1 gm Q24H 09/10/19 12:00 09/10/19 13:35 DC 09/10/19 12:55 1 GM Daptomycin 320 mg/ Sodium Chloride 50 ml @ 100 mls/hr Q24H 09/13/19 08:00 09/20/19 07:33 DC 09/19/19 08:12 100 MLS/HR Diltiazem HCl 125 mg/Dextrose 125 ml @ 0 mls/hr CONT PRN 09/10/19 06:30 09/11/19 05:40 10 MLS/HR Dutasteride (Avodart) 0.5 mg DAILY 09/10/19 09:00 09/20/19 08:39 0.5 MG Epinephrine HCl 4 mg/Sodium Chloride 254 ml @ 28.061 mls/ hr CONT PRN 09/11/19 15:45 09/13/19 15:56 DC Fentanyl Citrate (Fentanyl 600 Mcg/30 ml SPRINKLER INSTALLER) 600 mcg STK-MED ONCE 09/11/19 11:28 09/12/19 15:46 DC Fluconazole/ Sodium Chloride 50 ml @ 100 mls/hr Q24H 09/16/19 08:15 09/16/19 08:14 DC Furosemide (Lasix) 40 mg 1X ONCE 09/10/19 15:45 09/10/19 15:46 DC 09/10/19 16:38 40 MG Influenza Virus Vaccine Quadrival (Afluria Quad 2019-20 (3yr Up) Syringe) 0.5 ml ONCE ONCE 09/11/19 09:00 09/11/19 09:01 DC Lactobacillus Rhamnosus (Culturelle) 1 cap BID 09/10/19 09:00 09/12/19 09:15 DC 10/15/19 21:16 1 CAP Levofloxacin/ Dextrose 100 ml @ 100 mls/hr Q24H 09/12/19 09:00 09/19/19 08:00 DC 09/18/19 13:07 100 MLS/HR Lidocaine HCl (Buffered Lidocaine 1%) 3 ml 1X ONCE 09/11/19 17:15 09/11/19 17:16 DC 09/11/19 17:14 3 ML Lidocaine HCl (Lta Kit) 4 ml STK-MED ONCE 09/10/19 16:00 09/12/19 09:29 DC Lorazepam (Ativan Inj) 0.5 mg 1X ONCE 09/10/19 11:45 09/10/19 11:47 DC 09/10/19 11:48 0.5 MG Meropenem 500 mg/ Sodium Chloride 50 ml @ 100 mls/hr Q12H 09/15/19 21:00 09/20/19 08:03 100 MLS/HR Methylprednisolone Sodium Succinate (SOLU-Medrol 40MG VIAL) 40 mg Q12HR 09/16/19 21:00 09/20/19 08:04 40 MG Midazolam HCl 100 ml @ 0 mls/hr CONT PRN 09/11/19 10:15 09/17/19 22:50 5 MLS/HR Morphine Sulfate (Morphine Sulfate) 4 mg PRN Q2HR PRN 09/10/19 21:15 09/20/19 00:40 4 MG Naproxen (Naprosyn) 500 mg PRN BID PRN 09/10/19 06:30 09/12/19 11:01 DC Norepinephrine Bitartrate 250 ml @ 13.81 mls/ hr CONT PRN 09/11/19 10:45 09/18/19 20:17 7.5 MLS/HR Pantoprazole Sodium (PROTONIX VIAL for IV PUSH) 40 mg DAILYAC 09/12/19 12:00 09/20/19 08:00 40 MG Phytonadione (Vitamin K Ampule) 10 mg 1X ONCE 09/16/19 08:45 09/16/19 08:46 UNV Phytonadione 1 mg/ Dextrose 50.1 ml @ 102 mls/hr 1X ONCE 09/12/19 17:00 09/12/19 17:29 DC 09/12/19 17:07 102 MLS/HR Piperacillin Sod/ Tazobactam Sod 3.375 gm/Sodium Chloride 50 ml @ 100 mls/hr 1X ONCE 09/13/19 22:00 09/13/19 22:29 DC 09/13/19 22:27 100 MLS/HR Potassium Chloride 10 meq/ Bicarbonate Dialysis Soln w/ out KCl 5,005 ml @ 1,000 mls/hr Q5H1M 09/12/19 13:00 09/13/19 08:36 DC 09/13/19 06:05 1,000 MLS/HR Potassium Chloride 15 meq/ Bicarbonate Dialysis Soln w/ out KCl 5,007.5 ml @ 1,000 mls/ hr Q5H1M 09/17/19 16:00 09/20/19 09:27 1,000 MLS/HR Potassium Chloride 20 meq/ Bicarbonate Dialysis Soln w/ out KCl 5,010 ml @ 1,000 mls/hr Q5H1M 09/15/19 13:45 09/17/19 07:39 DC 09/17/19 02:18 1,000 MLS/HR Propofol 100 ml @ 0 mls/hr CONT PRN 09/11/19 10:15 09/13/19 15:56 DC Sodium Bicarbonate 100 meq/Dextrose 1,100 ml @ 75 mls/hr [id number] 09/11/19 09:00 09/13/19 15:56 DC 09/13/19 06:03 75 MLS/HR Sodium Bicarbonate (Sodium Bicarb Adult 8.4% Syr) 100 meq 1X ONCE 09/11/19 11:15 09/11/19 11:16 DC 09/11/19 11:28 100 MEQ Sodium Chloride 500 ml @ 500 mls/hr 1X ONCE 09/11/19 21:15 09/11/19 22:14 DC 09/11/19 21:21 500 MLS/HR Sodium Chloride (Normal Saline Flush) 10 ml QSHIFT PRN 09/10/19 07:00 Succinylcholine Chloride (Anectine) 200 mg STK-MED ONCE 09/11/19 10:57 09/11/19 10:57 DC Vancomycin HCl (Vanco Per Pharmacy) 1 each PRN DAILY PRN 09/10/19 14:00 09/11/19 07:59 DC 09/10/19 16:55 1 EACH Vancomycin HCl (Vancomycin Trough Level) 1 each 1X ONCE 09/12/19 16:00 09/11/19 08:01 DC Vancomycin HCl 1.5 gm/Sodium Chloride 500 ml @ 250 mls/hr 1X ONCE 09/10/19 14:00 09/10/19 15:59 DC 09/10/19 16:39 250 MLS/HR Vancomycin HCl 1 gm/Sodium Chloride 250 ml @ 250 mls/hr Q24H 09/11/19 16:30 09/11/19 07:59 DC Vasopressin 40 unit/Dextrose 102 ml @ 6 mls/hr CONT PRN 09/11/19 11:30 09/16/19 22:52 6 MLS/HR Lab Laboratory Tests Test 09/19/19 17:10 09/19/19 22:55 09/20/19 04:45 Sodium Level 140 mmol/L (136-145) 139 mmol/L (136-145) 138 mmol/L (136-145) Potassium Level 4.6 mmol/L (3.5-5.1) 4.8 mmol/L (3.5-5.1) 4.6 mmol/L (3.5-5.1) Chloride Level 106 mmol/L (98-107) 105 mmol/L (98-107) 103 mmol/L (98-107) Carbon Dioxide Level 27 mmol/L (21-32) 28 mmol/L (21-32) 26 mmol/L (21-32) Anion Gap 7 (6-14) 6 (6-14) 9 (6-14) Blood Urea Nitrogen 33 mg/dL (8-26) 33 mg/dL (8-26) 33 mg/dL (8-26) Creatinine 1.1 mg/dL (0.7-1.3) 1.1 mg/dL (0.7-1.3) 1.0 mg/dL (0.7-1.3) Estimated GFR (Cockcroft-Gault) 64.7 64.7 72.3 Glucose Level 157 mg/dL (70-99) 141 mg/dL (70-99) 144 mg/dL (70-99) Calcium Level 6.9 mg/dL (8.5-10.1) 7.5 mg/dL (8.5-10.1) 7.5 mg/dL (8.5-10.1) Phosphorus Level 3.8 mg/dL (2.6-4.7) 3.7 mg/dL (2.6-4.7) 3.7 mg/dL (2.6-4.7) Magnesium Level 2.5 mg/dL (1.8-2.4) 2.6 mg/dL (1.8-2.4) 2.7 mg/dL (1.8-2.4) White Blood Count 29.9 x10^3/uL (4.0-11.0) Red Blood Count 4.49 x10^6/uL (4.30-5.70) Hemoglobin 10.6 g/dL (13.0-17.5) Hematocrit 33.2 % (39.0-53.0) Mean Corpuscular Volume 74 fL (79-100) Mean Corpuscular Hemoglobin 24 pg (25-35) Mean Corpuscular Hemoglobin Concent 32 g/dL (31-37) Red Cell Distribution Width 19.5 % (11.5-14.5) Platelet Count 70 x10^3/uL (140-400) BUN/Creatinine Ratio 33 (6-20) Total Bilirubin 20.4 mg/dL (0.2-1.0) Aspartate Amino Transf (AST/SGOT) 276 U/L (15-37) Alanine Aminotransferase (ALT/SGPT) 440 U/L (16-63) Alkaline Phosphatase 151 U/L (46-116) Total Protein 5.3 g/dL (6.4-8.2) Albumin 1.8 g/dL (3.4-5.0) Albumin/Globulin Ratio 0.5 (1.0-1.7) Thyroid Stimulating Hormone (TSH) 1.949 uIU/mL (0.358-3.74) Results All relevant outside records, renal labs, imaging studies, telemetry/EKG's were reviewed. JAMEL LOPEZ MD Sep 20, 2019 11:17
--- NOTE | 2019-09-20 12:07 | PDOC ---
Objective: Objective: D/w nurse - plans for MRI, might be trying to wake up? Vital Signs: Vital Signs Date Time Temp Pulse Resp B/P (MAP) Pulse Ox O2 Delivery O2 Flow Rate FiO2 09/20/19 11:38 Mechanical Ventilator 09/20/19 11:00 98 20 146/76 (99) 100 09/20/19 08:00 98.4 98.4 09/20/19 01:12 15.0 Labs: Laboratory Tests Test 09/19/19 17:10 09/19/19 22:55 09/20/19 04:45 Sodium Level 140 mmol/L 139 mmol/L 138 mmol/L Potassium Level 4.6 mmol/L 4.8 mmol/L 4.6 mmol/L Chloride Level 106 mmol/L 105 mmol/L 103 mmol/L Carbon Dioxide Level 27 mmol/L 28 mmol/L 26 mmol/L Anion Gap 7 6 9 Blood Urea Nitrogen 33 mg/dL 33 mg/dL 33 mg/dL Creatinine 1.1 mg/dL 1.1 mg/dL 1.0 mg/dL Estimated GFR (Cockcroft-Gault) 64.7 64.7 72.3 Glucose Level 157 mg/dL 141 mg/dL 144 mg/dL Calcium Level 6.9 mg/dL 7.5 mg/dL 7.5 mg/dL Phosphorus Level 3.8 mg/dL 3.7 mg/dL 3.7 mg/dL Magnesium Level 2.5 mg/dL 2.6 mg/dL 2.7 mg/dL White Blood Count 29.9 x10^3/uL Red Blood Count 4.49 x10^6/uL Hemoglobin 10.6 g/dL Hematocrit 33.2 % Mean Corpuscular Volume 74 fL Mean Corpuscular Hemoglobin 24 pg Mean Corpuscular Hemoglobin Concent 32 g/dL Red Cell Distribution Width 19.5 % Platelet Count 70 x10^3/uL BUN/Creatinine Ratio 33 Total Bilirubin 20.4 mg/dL Aspartate Amino Transf (AST/SGOT) 276 U/L Alanine Aminotransferase (ALT/SGPT) 440 U/L Alkaline Phosphatase 151 U/L Total Protein 5.3 g/dL Albumin 1.8 g/dL Albumin/Globulin Ratio 0.5 Vitamin B12 Level > 2000 pg/mL Thyroid Stimulating Hormone (TSH) 1.949 uIU/mL Imaging: CXR 09/20 IMPRESSION: 1. Endotracheal tube tip just below the thoracic inlet. Advancement suggested. 2. Mild pulmonary edema superimposed on interstitial lung disease. Abd US IMPRESSION: 1. Cholelithiasis with mild gallbladder wall thickening. No pericholecystic fluid. HIDA scan can further evaluate gallbladder function if indicated. 2. Increased hepatic echotexture, may indicate steatosis. CBD 6.4mm. PE: GEN: on CRRT, intubated LUNGS: vent ABD and NEURO/PSYCH: off sedation, winces when abdomen palpated once - soft, non-distended, quiet A/P: Abnormal LFTs - possibly 2/2 meds, cholestasis, hemolysis -- Remain on amiodarone and meropenem - datpomycin stopped. Will review w/ Dr. Valdez. TERESE FULLER Sep 20, 2019 12:07
--- NOTE | 2019-09-20 14:25 | RAD ---
BRAIN W/O CONTRAST History: Prolonged mental status changes. Technique: Multiplanar, multi sequential MR imaging was performed of the brain without contrast. Comparison: None Findings: No acute infarct. No intracranial hemorrhage. No mass effect. No hydrocephalus. Moderate global brain parenchymal volume loss including prominent cerebellar volume loss. Punctate gradient hypointensity within the left frontal subcortical region. Imaged orbits are unremarkable. Fluid within the posterior nasopharynx and paranasal sinuses, likely related to intubation. Bilateral mastoid and middle ear effusions. Impression: 1. No acute intracranial abnormality. 2. Moderate global brain parenchymal volume loss including prominent cerebellar volume loss. 3. Punctate gradient hypointensity within the left frontal lobe, favor prior microhemorrhage, less likely tiny cavernous malformation. Comparison with prior imaging studies would be of benefit. 4. Paranasal sinus fluid, posterior nasopharyngeal fluid and bilateral bradley-mastoid effusion, likely related to intubation. Electronically signed by: Joe Jacobo DO (09/20/2019 2:22 PM) [id number]
--- NOTE | 2019-09-20 15:34 | PDOC2 ---
PALLIATIVE CARE Palliative Care Note Palliative Care Consult requested by Dr. Estevez to address Code Status; Medical Assessment per medical record 1. Acute hypoxemic respiratory failure/ARDS 2. SEPTIC SHOCK 3. Abnormal CT chest revealing bilateral pulmonary infiltrates. 4. Pneumonia, suspect gram-negative, gram-positive. 5. Possible acute pulmonary edema. 6. Possible interstitial lung disease/pulmonary fibrosis. 7. History of rheumatoid arthritis. 8. Atrial fibrillation with rapid ventricular response. 9. ACUTE MET ACIDOSIS, 10. ACUTE RENAL FAILURE 11. MET/TOXIC ENCE Patient on Vent. Unresponsive to verbal stimuli Off sedation/pressors. Dr. Rivera here. Spoke with family. Reviewed above medical condition; Discussed Code Status; Kristen and son would like to continue current aggressive treatment including Full Code. More family coming this weekend. If any changes in wishes will let the staff know. PLan: Full Code. Full Aggressive Care. YOAN HERMAN Sep 20, 2019 15:34
--- NOTE | 2019-09-20 18:29 | EEG ---
DATE OF SERVICE: 09/20/2019 OBJECTIVE: This is a 79-year-old male patient with history of prolonged mental status changes and not gained consciousness after sedation was off for 2 days. EEG was requested to evaluate cerebral activity. METHODS: Twenty electrodes were applied according to the international 10-20 electrode placement system. EKG monitoring, hyperventilation, intermittent photic stimulation, monopolar and bipolar montages are routinely utilized. The record was obtained on a digital system with video monitoring. FINDINGS: 1. Background: The patient was recorded in the unresponsive state only. No physiological awake, drowsy, and sleep states were recorded. The overall background amplitude is 3-10 microvolts. No posterior dominant rhythm is observed. The overall background rhythm is in paucity of cerebral activity and is with slowing in the theta and delta frequencies. 2. Abnormalities: No specific epileptiform discharge or electrographic seizure is seen. There is paucity of cerebral activity. Slowing in the theta and delta frequencies noted. 3. Activation: Hyperventilation was not performed because the patient was in unresponsive state. Intermittent photic stimulation was performed without photic driving. IMPRESSION: This EEG is an abnormal study for the unresponsive state only. No physiological awake, drowsy, and sleep states were recorded. There is paucity of cerebral activity. Slowing in the theta and delta frequencies noted. No focal, lateralizing, specific epileptiform discharge or electrographic seizure is seen. This pattern of EEG may suggest diffuse encephalopathy with paucity of active cerebral activity. BERT BARRON MD DR: SAMY/jose JOB#: [id number] / [id number] DELORIS
--- NOTE | 2019-09-20 18:55 | PDOC2 ---
NEUROLOGY CONSULT Date of Admission Date of Admission DATE: 09/20/19 TIME: 18:31 Reason for Consult Reason for Consult: IMPRESSION: Coma. Metabolic encephalopathy. Respiratory failure. Pulmonary edema. Leukocytosis. Renal failure. Hyperbilirubinemia. Hepatic injury. HTN. Gout. No evidence of acute CVA at the present time. RECOMMENDATIONS/PLAN: Continue life support in ICU. Treat medical diseases. Lab: see orders. Brain MRI performed. Discussed with his and son at bedside in ICU on 09/20/19. EEG on 09/20/19: Paucity of cerebral activity. HISTORY OF THE PRESENT ILLNESS: This is a 79-year-old male patient developed symptoms of productive cough with sputum for about 1 week. His symptoms became worse with SOB and he was brought [facility]. He was revealed AFib with RVR. He received cardiovert 2 times. He was eventually transferred to ICU of [facility]. Neurology was requested for a consultation due to not gaining consciousness 2 days after sedation was stopped. PAST MEDICAL HISTORY: Commute acquired pneumonia ARDS CHF Acute kidney injury Sepsis Fever Shock liver A. fib with RVR Coagulopathy DIC Anemia Rheumatoid arthritis self-treated with CBD oil prior to admit BPH Gout PAST SURGERY HISTORY: Cataract surgery Right IJ hemodialysis catheter Appendectomy FAMILY HISTORY: Cancer in one of his sons. Social history: , Retired , no tobacco since , occasional alcohol, no drugs, CBD oil ALLERGY: NKDA MEDICATIONS: Refer to MAR REVIEW OF SYSTEMS: Constitutional: No malnutrition, cachexia. Head: No recent traumatic brain or head injury. Skin: No edema, or rash. Ear: No infection. Eyes: No vision loss or color blindness. Nose: No bleeding or purulent discharges. Hearing: Hearing decrease. Neck: No injury. Cardiac: AFib, HTN. Pulmonary: Pneumonia. GI: No GI ulcer, GI bleeding. Urinary/genital:CKD? Endocrinologic: No cousin face, craniofacial dysmorphism, polydactyly. Skeletomuscular: No muscular atrophy, deformity. Neurological: see HP. Psychiatric: Denies drug use/abuse. Otherwise, not [id number] review of systems. PHYSICAL EXAMINATION: General appearance is in subacute distress. HEENT: Normocephalic and nontraumatic. Eyes, nose, ears, and throat are unremarkable. Neck is supple. No lymphadenopathy. No crepitus. Cardiovascular: S1, S2. Pulmonary: On vent. Abdomen: Bowel sounds are positive. Extremities: Significant edema. NEUROLOGICAL EXAMINATION: Unresponsive. On vent. Not oriented to time, place and person. Pupils 1-2 mm, insensitive to light stimuli. EOMI not elicited. CN: no focal findings. Muscle tone: Decreased. Muscle strength: No movements to stimuli. DTR: 0-1 Plantar reflex: No response bilaterally Gait: unable to walk. Sensory exam: no response to pain stimuli. Not able to access cerebellar signs. F-T-N test not performed due to in comatose. Current Medications Current Medications Current Medications Amiodarone HCl 450 mg/Dextrose 259 ml @ 17 mls/hr CONT PRN IV SEE I/O RECORD Last administered on 09/11/19at 02:33; Start 09/10/19 at 09:00 Diltiazem HCl 125 mg/Dextrose 125 ml @ 0 mls/hr CONT PRN IV SEE I/O RECORD Last administered on 09/11/19at 05:40; Start 09/10/19 at 06:30 Lactobacillus Rhamnosus (Culturelle) 1 cap BID PO Last administered on 09/11/19at 21:16; Start 09/10/19 at 09:00; Stop 09/12/19 at 09:15; Status DC Ceftriaxone Sodium (Rocephin) 1 gm Q24H IVP Last administered on 09/10/19at 12:55; Start 09/10/19 at 12:00; Stop 09/10/19 at 13:35; Status DC Azithromycin (Zithromax) 250 mg DAILY PO Last administered on 09/10/19at 08:38; Start 09/10/19 at 09:00; Stop 09/10/19 at 13:35; Status DC Dutasteride (Avodart) 0.5 mg DAILY PO Last administered on 09/20/19at 08:39; Start 09/10/19 at 09:00 Naproxen (Naprosyn) 500 mg PRN BID PRN PO MODERATE PAIN 4-6; Start 09/10/19 at 06:30; Stop 09/12/19 at 11:01; Status DC Albuterol Sulfate (Ventolin Neb Soln) 2.5 mg RTQID NEB Last administered on 09/20/19at 16:21; Start 09/10/19 at 08:00 Methylprednisolone Sodium Succinate (SOLU-Medrol 40MG VIAL) 40 mg Q8HRS IV Last administered on 09/16/19at 05:57; Start 09/10/19 at 08:00; Stop 09/16/19 at 10:46; Status DC Sodium Chloride (Normal Saline Flush) 10 ml QSHIFT PRN IV AFTER MEDS AND BLOOD DRAWS; Start 09/10/19 at 07:00 Influenza Virus Vaccine Quadrival (Afluria Quad 2019-20 (3yr Up) Syringe) 0.5 ml ONCE ONCE VAX IM ; Start 09/11/19 at 09:00; Stop 09/11/19 at 09:01; Status DC Bisacodyl (Dulcolax Supp) 10 mg PRN DAILY PRN TN CONSTIPATION Last administered on 09/10/19at 10:00; Start 09/10/19 at 10:00 Lorazepam (Ativan Inj) 0.5 mg 1X ONCE IVP Last administered on 09/10/19at 11:10; Start 09/10/19 at 11:15; Stop 09/10/19 at 11:16; Status DC Lorazepam (Ativan Inj) 0.5 mg 1X ONCE IVP Last administered on 09/10/19at 11:48; Start 09/10/19 at 11:45; Stop 09/10/19 at 11:47; Status DC Morphine Sulfate (Morphine Sulfate) 5 mg 1X ONCE IV Last administered on 09/10/19at 11:55; Start 09/10/19 at 12:00; Stop 09/10/19 at 12:01; Status DC Morphine Sulfate (Morphine Sulfate) 4 mg 1X ONCE IV Last administered on 09/10/19at 12:56; Start 09/10/19 at 13:00; Stop 09/10/19 at 13:01; Status DC Vancomycin HCl 1 gm/Sodium Chloride 250 ml @ 250 mls/hr Q12H IV ; Start 09/10/19 at 13:30; Status UNV Piperacillin Sod/ Tazobactam Sod 3.375 gm/Sodium Chloride 50 ml @ 100 mls/hr Q6HRS IV Last administered on 09/11/19at 05:39; Start 09/10/19 at 14:00; Stop 09/11/19 at 08:20; Status DC Vancomycin HCl 1.5 gm/Sodium Chloride 500 ml @ 250 mls/hr 1X ONCE IV Last administered on 09/10/19at 16:39; Start 09/10/19 at 14:00; Stop 09/10/19 at 15:59; Status DC Vancomycin HCl (Vanco Per Pharmacy) 1 each PRN DAILY PRN MC SEE COMMENTS Last administered on 09/10/19at 16:55; Start 09/10/19 at 14:00; Stop 09/11/19 at 07:59; Status DC Furosemide (Lasix) 40 mg DAILY IVP ; Start 09/11/19 at 09:00; Stop 09/10/19 at 15:41; Status DC Furosemide (Lasix) 20 mg 1X ONCE IVP ; Start 09/10/19 at 15:45; Stop 09/10/19 at 15:46; Status DC Furosemide (Lasix) 40 mg 1X ONCE IVP Last administered on 09/10/19at 16:38; Start 09/10/19 at 15:45; Stop 09/10/19 at 15:46; Status DC Vancomycin HCl 1 gm/Sodium Chloride 250 ml @ 250 mls/hr Q24H IV ; Start 09/11/19 at 16:30; Stop 09/11/19 at 07:59; Status DC Vancomycin HCl (Vancomycin Trough Level) 1 each 1X ONCE MC ; Start 09/12/19 at 16:00; Stop 09/11/19 at 08:01; Status DC Morphine Sulfate (Morphine Sulfate) 4 mg PRN Q2HR PRN IV PAIN, elevated respirations Last administered on 09/20/19at 00:40; Start 09/10/19 at 21:15 Succinylcholine Chloride (Anectine) 200 mg STK-MED ONCE .ROUTE ; Start 09/11/19 at 08:09; Stop 09/11/19 at 08:09; Status DC Propofol 100 ml @ As Directed STK-MED ONCE IV ; Start 09/11/19 at 08:09; Stop 09/11/19 at 08:09; Status DC Sodium Bicarbonate 100 meq/Dextrose 1,100 ml @ 75 mls/hr [id number] IV Last administered on 09/13/19at 06:03; Start 09/11/19 at 09:00; Stop 09/13/19 at 15:56; Status DC Piperacillin Sod/ Tazobactam Sod 3.375 gm/Sodium Chloride 50 ml @ 100 mls/hr Q8HRS IV Last administered on 09/15/19at 05:01; Start 09/11/19 at 14:00; Stop 09/15/19 at 08:00; Status DC Levofloxacin/ Dextrose 100 ml @ 100 mls/hr 1X ONCE IV Last administered on 09/11/19at 12:39; Start 09/11/19 at 08:30; Stop 09/11/19 at 09:29; Status DC Levofloxacin/ Dextrose 50 ml @ 50 mls/hr Q24H IV Last administered on 09/11/19at 12:27; Start 09/12/19 at 09:00; Stop 09/11/19 at 16:31; Status DC Fentanyl Citrate 30 ml @ 0 mls/hr CONT PRN IV SEE PROTOCOL Last administered on 09/18/19at 07:56; Start 09/11/19 at 10:15 Propofol 100 ml @ 0 mls/hr CONT PRN IV SEE PROTOCOL; Start 09/11/19 at 10:15; Stop 09/13/19 at 15:56; Status DC Midazolam HCl 100 ml @ 0 mls/hr CONT PRN IV SEE PROTOCOL Last administered on 09/17/19at 22:50; Start 09/11/19 at 10:15 Norepinephrine Bitartrate 250 ml @ 13.81 mls/ hr CONT PRN IV SEE I/O RECORD Last administered on 09/18/19at 20:17; Start 09/11/19 at 10:45 Sodium Bicarbonate (Sodium Bicarb Adult 8.4% Syr) 50 meq STK-MED ONCE .ROUTE ; Start 09/11/19 at 10:49; Stop 09/11/19 at 10:50; Status DC Succinylcholine Chloride (Anectine) 200 mg STK-MED ONCE .ROUTE ; Start 09/11/19 at 10:57; Stop 09/11/19 at 10:57; Status DC Sodium Bicarbonate (Sodium Bicarb Adult 8.4% Syr) 100 meq 1X ONCE IV Last administered on 09/11/19at 11:28; Start 09/11/19 at 11:15; Stop 09/11/19 at 11:16; Status DC Vasopressin 40 unit/Dextrose 102 ml @ 6 mls/hr CONT PRN IV SEE I/O RECORD Last administered on 09/16/19at 22:52; Start 09/11/19 at 11:30 Sodium Chloride 1,000 ml @ 1,770 mls/hr Q34M IV Last administered on 09/11/19at 12:28; Start 09/11/19 at 11:45; Stop 09/11/19 at 12:45; Status DC Lidocaine HCl (Buffered Lidocaine 1%) 3 ml STK-MED ONCE .ROUTE ; Start 09/11/19 at 15:23; Stop 09/11/19 at 15:23; Status DC Epinephrine HCl 4 mg/Sodium Chloride 254 ml @ 28.061 mls/ hr CONT PRN IV SEE I/O RECORD; Start 09/11/19 at 15:45; Stop 09/13/19 at 15:56; Status DC Levofloxacin/ Dextrose 100 ml @ 100 mls/hr Q24H IV Last administered on 09/18/19at 13:07; Start 09/12/19 at 09:00; Stop 09/19/19 at 08:00; Status DC Lidocaine HCl (Buffered Lidocaine 1%) 3 ml 1X ONCE INJ Last administered on 09/11/19at 17:14; Start 09/11/19 at 17:15; Stop 09/11/19 at 17:16; Status DC Sodium Chloride 500 ml @ 500 mls/hr 1X ONCE IV Last administered on 09/11/19at 21:21; Start 09/11/19 at 21:15; Stop 09/11/19 at 22:14; Status DC Calcium Chloride 12.5 meq/ Bicarbonate Dialysis Soln w/ out KCl 5,008.9286 ml @ 1,000 mls/hr Q5H1M IV ; Start 09/12/19 at 09:00; Stop 09/12/19 at 12:18; Status DC Calcium Chloride 12.5 meq/ Bicarbonate Dialysis Soln w/ out KCl 5,008.9286 ml @ 1,000 mls/hr Q5H1M IV ; Start 09/12/19 at 09:00; Stop 09/12/19 at 10:00; Status DC Calcium Chloride 12.5 meq/ Bicarbonate Dialysis Soln w/ out KCl 5,008.9286 ml @ 1,000 mls/hr Q5H1M IV ; Start 09/12/19 at 09:00; Stop 09/12/19 at 10:02; Status DC Lidocaine HCl (Lta Kit) 4 ml STK-MED ONCE TP ; Start 09/10/19 at 16:00; Stop 09/12/19 at 09:29; Status DC Calcium Chloride 12.5 meq/ Bicarbonate Dialysis Soln w/ out KCl 5,008.9286 ml @ 1,500 mls/hr Q3H21M IV ; Start 09/12/19 at 12:00; Stop 09/12/19 at 11:28; Status DC Calcium Chloride 12.5 meq/ Bicarbonate Dialysis Soln w/ out KCl 5,008.9286 ml @ 1,500 mls/hr Q3H21M IV ; Start 09/12/19 at 12:00; Stop 09/12/19 at 11:30; Status DC Pantoprazole Sodium (PROTONIX VIAL for IV PUSH) 40 mg DAILYAC IVP Last administered on 09/20/19at 08:00; Start 09/12/19 at 12:00 Calcium Chloride 12.5 meq/ Bicarbonate Dialysis Soln w/ out KCl 5,008.9286 ml @ 1,000 mls/hr Q5H1M IV ; Start 09/12/19 at 13:00; Stop 09/12/19 at 12:18; Status DC Calcium Chloride 12.5 meq/ Bicarbonate Dialysis Soln w/ out KCl 5,008.9286 ml @ 1,000 mls/hr Q5H1M IV ; Start 09/12/19 at 13:00; Stop 09/12/19 at 12:18; Status DC Potassium Chloride 10 meq/ Bicarbonate Dialysis Soln w/ out KCl 5,005 ml @ 1,000 mls/hr Q5H1M IV Last administered on 09/13/19at 06:04; Start 09/12/19 at 13:00; Stop 09/13/19 at 08:35; Status DC Potassium Chloride 10 meq/ Bicarbonate Dialysis Soln w/ out KCl 5,005 ml @ 1,000 mls/hr Q5H1M IV Last administered on 09/13/19at 06:04; Start 09/12/19 at 12:30; Stop 09/13/19 at 08:37; Status DC Potassium Chloride 10 meq/ Bicarbonate Dialysis Soln w/ out KCl 5,005 ml @ 1,000 mls/hr Q5H1M IV Last administered on 09/13/19at 06:05; Start 09/12/19 at 13:00; Stop 09/13/19 at 08:36; Status DC Fentanyl Citrate (Fentanyl 600 Mcg/30 ml SET UP MECHANIC AUTOMATIC LINE) 600 mcg STK-MED ONCE IV ; Start 09/11/19 at 11:28; Stop 09/12/19 at 15:46; Status DC Phytonadione 1 mg/ Dextrose 50.1 ml @ 102 mls/hr 1X ONCE IV Last administered on 09/12/19at 17:07; Start 09/12/19 at 17:00; Stop 09/12/19 at 17:29; Status DC Daptomycin 320 mg/ Sodium Chloride 50 ml @ 100 mls/hr Q24H IV Last administered on 09/19/19at 08:12; Start 09/13/19 at 08:00; Stop 09/20/19 at 07:33; Status DC Potassium Chloride 20 meq/ Bicarbonate Dialysis Soln w/ out KCl 5,010 ml @ 1,000 mls/hr Q5H1M IV Last administered on 09/17/19at 02:18; Start 09/13/19 at 09:00; Stop 09/17/19 at 07:37; Status DC Potassium Chloride 20 meq/ Bicarbonate Dialysis Soln w/ out KCl 5,010 ml @ 1,000 mls/hr Q5H1M IV Last administered on 09/17/19at 02:19; Start 09/13/19 at 08:45; Stop 09/17/19 at 07:38; Status DC Potassium Chloride 20 meq/ Bicarbonate Dialysis Soln w/ out KCl 5,010 ml @ 1,000 mls/hr Q5H1M IV Last administered on 09/15/19at 08:42; Start 09/13/19 at 08:45; Stop 09/15/19 at 13:48; Status DC Piperacillin Sod/ Tazobactam Sod 3.375 gm/Sodium Chloride 50 ml @ 100 mls/hr 1X ONCE IV Last administered on 09/13/19at 22:27; Start 09/13/19 at 22:00; Stop 09/13/19 at 22:29; Status DC Phytonadione (Vitamin K Ampule) 10 mg 1X ONCE SQ Last administered on 09/14/19at 12:26; Start 09/14/19 at 12:30; Stop 09/14/19 at 12:31; Status DC Meropenem 500 mg/ Sodium Chloride 50 ml @ 100 mls/hr DAILY IV Last administered on 09/15/19at 08:52; Start 09/15/19 at 09:00; Stop 09/15/19 at 11:41; Status DC Meropenem 500 mg/ Sodium Chloride 50 ml @ 100 mls/hr Q12H IV Last administered on 09/20/19at 08:03; Start 09/15/19 at 21:00 Potassium Chloride 20 meq/ Bicarbonate Dialysis Soln w/ out KCl 5,010 ml @ 1,000 mls/hr Q5H1M IV Last administered on 09/17/19at 02:18; Start 09/15/19 at 13:45; Stop 09/17/19 at 07:39; Status DC Fluconazole/ Sodium Chloride 50 ml @ 100 mls/hr Q24H IV ; Start 09/16/19 at 08:15; Stop 09/16/19 at 08:14; Status DC Phytonadione (Vitamin K Ampule) 10 mg 1X ONCE SQ Last administered on 09/16/19at 09:40; Start 09/16/19 at 09:00; Stop 09/16/19 at 09:01; Status DC Phytonadione (Vitamin K Ampule) 10 mg 1X ONCE SQ ; Start 09/16/19 at 08:45; Stop 09/16/19 at 08:46; Status UNV Methylprednisolone Sodium Succinate (SOLU-Medrol 40MG VIAL) 40 mg Q12HR IV Last administered on 09/20/19at 08:04; Start 09/16/19 at 21:00 Potassium Chloride 15 meq/ Bicarbonate Dialysis Soln w/ out KCl 5,007.5 ml @ 1,000 mls/ hr Q5H1M IV Last administered on 09/17/19at 08:16; Start 09/17/19 at 07:45; Stop 09/17/19 at 12:00; Status DC Potassium Chloride 15 meq/ Bicarbonate Dialysis Soln w/ out KCl 5,007.5 ml @ 1,000 mls/ hr Q5H1M IV Last administered on 09/17/19at 08:16; Start 09/17/19 at 07:45; Stop 09/17/19 at 12:00; Status DC Potassium Chloride 15 meq/ Bicarbonate Dialysis Soln w/ out KCl 5,007.5 ml @ 1,000 mls/ hr Q5H1M IV Last administered on 09/17/19at 08:16; Start 09/17/19 at 07:45; Stop 09/17/19 at 12:00; Status DC Calcium Chloride 12.5 meq/ Potassium Chloride 5 meq/ Bicarbonate Dialysis Soln w/ out KCl 5,011.4286 ml @ 1,000 mls/hr Q5H1M IV Last administered on 09/17/19at 13:05; Start 09/17/19 at 12:00; Stop 09/17/19 at 18:32; Status DC Calcium Chloride 12.5 meq/ Potassium Chloride 5 meq/ Bicarbonate Dialysis Soln w/ out KCl 5,011.4286 ml @ 1,000 mls/hr Q5H1M IV Last administered on 09/17/19at 13:06; Start 09/17/19 at 12:00; Stop 09/17/19 at 18:33; Status DC Calcium Chloride 12.5 meq/ Potassium Chloride 5 meq/ Bicarbonate Dialysis Soln w/ out KCl 5,011.4286 ml @ 1,000 mls/hr Q5H1M IV Last administered on 09/17/19at 13:05; Start 09/17/19 at 12:00; Stop 09/17/19 at 18:33; Status DC Potassium Chloride 15 meq/ Bicarbonate Dialysis Soln w/ out KCl 5,007.5 ml @ 1,000 mls/ hr Q5H1M IV Last administered on 09/20/19at 09:27; Start 09/17/19 at 16:00 Potassium Chloride 15 meq/ Bicarbonate Dialysis Soln w/ out KCl 5,007.5 ml @ 1,000 mls/ hr Q5H1M IV Last administered on 09/20/19at 09:28; Start 09/17/19 at 16:00 Potassium Chloride 15 meq/ Bicarbonate Dialysis Soln w/ out KCl 5,007.5 ml @ 1,000 mls/ hr Q5H1M IV Last administered on 09/20/19at 09:27; Start 09/17/19 at 16:00 Active Scripts Active Reported Naproxen 500 Mg Tablet 1 Tab PO PRN BID PRN 30 Days Avodart (Dutasteride) 0.5 Mg Capsule 1 Cap PO DAILY Allergies Allergies: Allergies Coded Allergies Type Severity Reaction Last Updated Verified No Known Drug Allergies 09/10/19 No ROS Review of System The patient denies any associated fevers, chills, headache, ear pain, rhinorrhea, sore throat, stiff neck, productive cough, chest pain, shortness of breath, back or flank pain, abdominal pain, nausea, vomiting, diarrhea, constipation, dysuria, rash, numbness, weakness, tingling, incontinence, difficulty ambulating, or diaphoresis. Physical Exam Physical Exam General: Well developed, well nourished, no acute distress, well appearing HEENT: Pupils equally round and reactive to light, EOMI, no discharge, normal conjunctiva Neck: Supple, no nuchal rigidity, no JVD, trachea midline, no tenderness Cardiac: RRR, no murmurs, no gallops, no rubs Chest/Lungs: CTAB, no wheeze, no rhonchi, no crackles Abdomen: soft, non-distended, no guarding, no peritoneal signs, non-tender Back: No tenderness Extremities: no edema, pulses intact, non-tender,capillary refill <3 sec bilateral upper and lower extremities, Neuro: Alert and oriented x 4, no focal deficits, normal speech Vitals Vitals: Vital Signs Date Time Temp Pulse Resp B/P (MAP) Pulse Ox O2 Delivery O2 Flow Rate FiO2 09/20/19 18:00 111 17 119/70 (86) 97 Ventilator 09/20/19 16:00 97.4 97.4 09/20/19 01:12 15.0 Labs Labs Laboratory Tests Test 09/18/19 23:30 09/19/19 05:40 09/19/19 08:58 09/19/19 11:01 Sodium Level 142 mmol/L (136-145) 139 mmol/L (136-145) 140 mmol/L (136-145) Potassium Level 4.8 mmol/L (3.5-5.1) 4.9 mmol/L (3.5-5.1) 4.6 mmol/L (3.5-5.1) Chloride Level 107 mmol/L (98-107) 104 mmol/L (98-107) 104 mmol/L (98-107) Carbon Dioxide Level 27 mmol/L (21-32) 25 mmol/L (21-32) 27 mmol/L (21-32) Anion Gap 8 (6-14) 10 (6-14) 9 (6-14) Blood Urea Nitrogen 35 mg/dL (8-26) 36 mg/dL (8-26) 35 mg/dL (8-26) Creatinine 1.3 mg/dL (0.7-1.3) 1.2 mg/dL (0.7-1.3) 1.2 mg/dL (0.7-1.3) Estimated GFR (Cockcroft-Gault) 53.4 58.6 58.6 BUN/Creatinine Ratio 27 (6-20) 30 (6-20) Glucose Level 156 mg/dL (70-99) 164 mg/dL (70-99) 157 mg/dL (70-99) Calcium Level 6.9 mg/dL (8.5-10.1) 7.3 mg/dL (8.5-10.1) 7.5 mg/dL (8.5-10.1) Phosphorus Level 3.8 mg/dL (2.6-4.7) 3.8 mg/dL (2.6-4.7) Magnesium Level 2.5 mg/dL (1.8-2.4) 2.7 mg/dL (1.8-2.4) 2.6 mg/dL (1.8-2.4) Total Bilirubin 16.2 mg/dL (0.2-1.0) 17.3 mg/dL (0.2-1.0) Aspartate Amino Transf (AST/SGOT) 244 U/L (15-37) 254 U/L (15-37) Alanine Aminotransferase (ALT/SGPT) 530 U/L (16-63) 514 U/L (16-63) Alkaline Phosphatase 128 U/L (46-116) 136 U/L (46-116) Total Protein 5.1 g/dL (6.4-8.2) 5.2 g/dL (6.4-8.2) Albumin 1.8 g/dL (3.4-5.0) 1.7 g/dL (3.4-5.0) Albumin/Globulin Ratio 0.5 (1.0-1.7) 0.5 (1.0-1.7) White Blood Count 23.3 x10^3/uL (4.0-11.0) Red Blood Count 4.47 x10^6/uL (4.30-5.70) Hemoglobin 10.5 g/dL (13.0-17.5) Hematocrit 33.0 % (39.0-53.0) Mean Corpuscular Volume 74 fL (79-100) Mean Corpuscular Hemoglobin 24 pg (25-35) Mean Corpuscular Hemoglobin Concent 32 g/dL (31-37) Red Cell Distribution Width 18.9 % (11.5-14.5) Platelet Count 55 x10^3/uL (140-400) Direct Bilirubin 13.6 mg/dL (0.0-0.2) Hepatitis B Surface Antigen Nonreactive (Nonreactive) Ammonia < 10 mcmol/L (11-34) Test 09/19/19 17:10 09/19/19 22:55 09/20/19 04:45 Sodium Level 140 mmol/L (136-145) 139 mmol/L (136-145) 138 mmol/L (136-145) Potassium Level 4.6 mmol/L (3.5-5.1) 4.8 mmol/L (3.5-5.1) 4.6 mmol/L (3.5-5.1) Chloride Level 106 mmol/L (98-107) 105 mmol/L (98-107) 103 mmol/L (98-107) Carbon Dioxide Level 27 mmol/L (21-32) 28 mmol/L (21-32) 26 mmol/L (21-32) Anion Gap 7 (6-14) 6 (6-14) 9 (6-14) Blood Urea Nitrogen 33 mg/dL (8-26) 33 mg/dL (8-26) 33 mg/dL (8-26) Creatinine 1.1 mg/dL (0.7-1.3) 1.1 mg/dL (0.7-1.3) 1.0 mg/dL (0.7-1.3) Estimated GFR (Cockcroft-Gault) 64.7 64.7 72.3 Glucose Level 157 mg/dL (70-99) 141 mg/dL (70-99) 144 mg/dL (70-99) Calcium Level 6.9 mg/dL (8.5-10.1) 7.5 mg/dL (8.5-10.1) 7.5 mg/dL (8.5-10.1) Phosphorus Level 3.8 mg/dL (2.6-4.7) 3.7 mg/dL (2.6-4.7) 3.7 mg/dL (2.6-4.7) Magnesium Level 2.5 mg/dL (1.8-2.4) 2.6 mg/dL (1.8-2.4) 2.7 mg/dL (1.8-2.4) White Blood Count 29.9 x10^3/uL (4.0-11.0) Red Blood Count 4.49 x10^6/uL (4.30-5.70) Hemoglobin 10.6 g/dL (13.0-17.5) Hematocrit 33.2 % (39.0-53.0) Mean Corpuscular Volume 74 fL (79-100) Mean Corpuscular Hemoglobin 24 pg (25-35) Mean Corpuscular Hemoglobin Concent 32 g/dL (31-37) Red Cell Distribution Width 19.5 % (11.5-14.5) Platelet Count 70 x10^3/uL (140-400) BUN/Creatinine Ratio 33 (6-20) Total Bilirubin 20.4 mg/dL (0.2-1.0) Aspartate Amino Transf (AST/SGOT) 276 U/L (15-37) Alanine Aminotransferase (ALT/SGPT) 440 U/L (16-63) Alkaline Phosphatase 151 U/L (46-116) Total Protein 5.3 g/dL (6.4-8.2) Albumin 1.8 g/dL (3.4-5.0) Albumin/Globulin Ratio 0.5 (1.0-1.7) Vitamin B12 Level > 2000 pg/mL (247-911) Thyroid Stimulating Hormone (TSH) 1.949 uIU/mL (0.358-3.74) Laboratory Tests Test 09/19/19 22:55 09/20/19 04:45 Sodium Level 139 mmol/L (136-145) 138 mmol/L (136-145) Potassium Level 4.8 mmol/L (3.5-5.1) 4.6 mmol/L (3.5-5.1) Chloride Level 105 mmol/L (98-107) 103 mmol/L (98-107) Carbon Dioxide Level 28 mmol/L (21-32) 26 mmol/L (21-32) Anion Gap 6 (6-14) 9 (6-14) Blood Urea Nitrogen 33 mg/dL (8-26) 33 mg/dL (8-26) Creatinine 1.1 mg/dL (0.7-1.3) 1.0 mg/dL (0.7-1.3) Estimated GFR (Cockcroft-Gault) 64.7 72.3 Glucose Level 141 mg/dL (70-99) 144 mg/dL (70-99) Calcium Level 7.5 mg/dL (8.5-10.1) 7.5 mg/dL (8.5-10.1) Phosphorus Level 3.7 mg/dL (2.6-4.7) 3.7 mg/dL (2.6-4.7) Magnesium Level 2.6 mg/dL (1.8-2.4) 2.7 mg/dL (1.8-2.4) White Blood Count 29.9 x10^3/uL (4.0-11.0) Red Blood Count 4.49 x10^6/uL (4.30-5.70) Hemoglobin 10.6 g/dL (13.0-17.5) Hematocrit 33.2 % (39.0-53.0) Mean Corpuscular Volume 74 fL (79-100) Mean Corpuscular Hemoglobin 24 pg (25-35) Mean Corpuscular Hemoglobin Concent 32 g/dL (31-37) Red Cell Distribution Width 19.5 % (11.5-14.5) Platelet Count 70 x10^3/uL (140-400) BUN/Creatinine Ratio 33 (6-20) Total Bilirubin 20.4 mg/dL (0.2-1.0) Aspartate Amino Transf (AST/SGOT) 276 U/L (15-37) Alanine Aminotransferase (ALT/SGPT) 440 U/L (16-63) Alkaline Phosphatase 151 U/L (46-116) Total Protein 5.3 g/dL (6.4-8.2) Albumin 1.8 g/dL (3.4-5.0) Albumin/Globulin Ratio 0.5 (1.0-1.7) Vitamin B12 Level > 2000 pg/mL (247-911) Thyroid Stimulating Hormone (TSH) 1.949 uIU/mL (0.358-3.74) BERT BARRON MD Sep 20, 2019 18:55
[2019-09-21] VITALS (26 sets, daily range): BP systolic 79–211; BP diastolic 40–99
[2019-09-21] MEDS: POTASSIUM CHLORIDE 15 MEQ in DIALYSIS SOLUTION BGK 0/2.5 5,000 ML IV SCH ×6 (05:17)
[2019-09-21 06:03] LABS: HEMATOCRIT 32.6 % (39.0-53.0); HEMOGLOBIN 10.3 g/dL (13.0-17.5); RED BLOOD COUNT 4.36 x10^6/uL (4.30-5.70); RED CELL DISTRIBUTION WIDTH 20.2 % (11.5-14.5); WHITE BLOOD COUNT 32.9 x10^3/uL (4.0-11.0)
[2019-09-21 06:19] LABS: PROTHROMBIN TIME PATIENT 18.9 SEC (11.7-14.0)
[2019-09-21 06:33] LABS: ALBUMIN 1.7 g/dL (3.4-5.0); ALBUMIN/GLOBULIN RATIO 0.5 (1.0-1.7); CREATININE 2.4 mg/dL (0.7-1.3); GFR 26.3; POTASSIUM 5.7 mmol/L (3.5-5.1); TOTAL BILIRUBIN 22.7 mg/dL (0.2-1.0); TOTAL PROTEIN 5.1 g/dL (6.4-8.2)
[2019-09-21] MEDS: ALBUTEROL SULFATE 2.5 MG/3 ML NEBU. NEB SCH ×4 (07:03→20:00)
--- NOTE | 2019-09-21 07:43 | RAD ---
PORTABLE CHEST 1V History: Respiratory failure. Comparison: September 20, 2019 Findings: Diffuse interstitial and alveolar opacities, unchanged. No pneumothorax. No pleural effusion. Unchanged heart size. Unchanged right IJ central lines. Unchanged endotracheal tube and enteric tube. Bilateral acromioclavicular DJD. Impression: 1. Diffuse interstitial and alveolar opacities, unchanged. Electronically signed by: Joe Jacobo DO (09/21/2019 7:41 AM) [id number]
--- NOTE | 2019-09-21 08:17 | PDOC ---
Infectious Disease Note Subjective: Subjective Pt intubated Off pressors not responding today D/W RN ROS: ROS unable to obtain Vital Signs: Vital Signs Vital Signs Date Time Temp Pulse Resp B/P (MAP) Pulse Ox O2 Delivery O2 Flow Rate FiO2 09/21/19 07:03 98 Ventilator 09/21/19 07:00 105 20 147/75 (99) 09/21/19 04:00 98.0 98.0 Physical Exam: PHYSICAL EXAM GENERAL: orally intubated on vent HEENT: icteric, ETT +, large black dorsal tongue lesions ,ventral tongue ulceration , cannot visualize the whole mouth NECK: Supple, RT IJ and central line + looks clean LUNGS: dec bs at the [facility] HEART: S1, S2 regular, no murmurs ABDOMEN: Soft,mildly distended, nontender, BS + EXTREMITIES: +edema, purplish discoloration of toes SKIN: Unremarkable. NEUROLOGIC: intubated Medications: Inpatient Meds: Current Medications Medications (Trade) Dose Ordered Sig/Veena Start Time Stop Time Status Last Admin Dose Admin Albuterol Sulfate (Ventolin Neb Soln) 2.5 mg RTQID 09/10/19 08:00 09/21/19 07:03 2.5 MG Amiodarone HCl 450 mg/Dextrose 259 ml @ 17 mls/hr CONT PRN 09/10/19 09:00 09/11/19 02:33 17 MLS/HR Azithromycin (Zithromax) 250 mg DAILY 09/10/19 09:00 09/10/19 13:35 DC 09/10/19 08:38 250 MG Bisacodyl (Dulcolax Supp) 10 mg PRN DAILY PRN 09/10/19 10:00 09/10/19 10:00 10 MG Calcium Chloride 12.5 meq/ Bicarbonate Dialysis Soln w/ out KCl 5,008.9286 ml @ 1,000 mls/hr Q5H1M 09/12/19 13:00 09/12/19 12:18 DC Calcium Chloride 12.5 meq/ Potassium Chloride 5 meq/ Bicarbonate Dialysis Soln w/ out KCl 5,011.4286 ml @ 1,000 mls/hr Q5H1M 09/17/19 12:00 09/17/19 18:33 DC 09/17/19 13:05 1,000 MLS/HR Ceftriaxone Sodium (Rocephin) 1 gm Q24H 09/10/19 12:00 09/10/19 13:35 DC 09/10/19 12:55 1 GM Daptomycin 320 mg/ Sodium Chloride 50 ml @ 100 mls/hr Q24H 09/13/19 08:00 09/20/19 07:33 DC 09/19/19 08:12 100 MLS/HR Diltiazem HCl 125 mg/Dextrose 125 ml @ 0 mls/hr CONT PRN 09/10/19 06:30 09/11/19 05:40 10 MLS/HR Dutasteride (Avodart) 0.5 mg DAILY 09/10/19 09:00 09/20/19 08:39 0.5 MG Epinephrine HCl 4 mg/Sodium Chloride 254 ml @ 28.061 mls/ hr CONT PRN 09/11/19 15:45 09/13/19 15:56 DC Fentanyl Citrate (Fentanyl 600 Mcg/30 ml THIRD SHIFT LIEUTENANT) 600 mcg STK-MED ONCE 09/11/19 11:28 09/12/19 15:46 DC Fluconazole/ Sodium Chloride 50 ml @ 100 mls/hr Q24H 09/16/19 08:15 09/16/19 08:14 DC Furosemide (Lasix) 40 mg 1X ONCE 09/10/19 15:45 09/10/19 15:46 DC 09/10/19 16:38 40 MG Influenza Virus Vaccine Quadrival (Afluria Quad 2019-20 (3yr Up) Syringe) 0.5 ml ONCE ONCE 09/11/19 09:00 09/11/19 09:01 DC Lactobacillus Rhamnosus (Culturelle) 1 cap BID 09/10/19 09:00 09/12/19 09:15 DC 09/11/19 21:16 1 CAP Levofloxacin/ Dextrose 100 ml @ 100 mls/hr Q24H 09/12/19 09:00 09/19/19 08:00 DC 09/18/19 13:07 100 MLS/HR Lidocaine HCl (Buffered Lidocaine 1%) 3 ml 1X ONCE 09/11/19 17:15 09/11/19 17:16 DC 09/11/19 17:14 3 ML Lidocaine HCl (Lta Kit) 4 ml STK-MED ONCE 09/10/19 16:00 09/12/19 09:29 DC Lorazepam (Ativan Inj) 0.5 mg 1X ONCE 09/10/19 11:45 09/10/19 11:47 DC 09/10/19 11:48 0.5 MG Meropenem 500 mg/ Sodium Chloride 50 ml @ 100 mls/hr Q12H 09/15/19 21:00 09/20/19 21:14 100 MLS/HR Methylprednisolone Sodium Succinate (SOLU-Medrol 40MG VIAL) 40 mg Q12HR 09/16/19 21:00 09/20/19 21:14 40 MG Midazolam HCl 100 ml @ 0 mls/hr CONT PRN 09/11/19 10:15 09/17/19 22:50 5 MLS/HR Morphine Sulfate (Morphine Sulfate) 4 mg PRN Q2HR PRN 09/10/19 21:15 09/20/19 00:40 4 MG Naproxen (Naprosyn) 500 mg PRN BID PRN 09/10/19 06:30 09/12/19 11:01 DC Norepinephrine Bitartrate 250 ml @ 13.81 mls/ hr CONT PRN 09/11/19 10:45 09/18/19 20:17 7.5 MLS/HR Pantoprazole Sodium (PROTONIX VIAL for IV PUSH) 40 mg DAILYAC 09/12/19 12:00 09/20/19 08:00 40 MG Phytonadione (Vitamin K Ampule) 10 mg 1X ONCE 09/16/19 08:45 09/16/19 08:46 UNV Phytonadione 1 mg/ Dextrose 50.1 ml @ 102 mls/hr 1X ONCE 09/12/19 17:00 09/12/19 17:29 DC 09/12/19 17:07 102 MLS/HR Piperacillin Sod/ Tazobactam Sod 3.375 gm/Sodium Chloride 50 ml @ 100 mls/hr 1X ONCE 09/13/19 22:00 09/13/19 22:29 DC 09/13/19 22:27 100 MLS/HR Potassium Chloride 10 meq/ Bicarbonate Dialysis Soln w/ out KCl 5,005 ml @ 1,000 mls/hr Q5H1M 09/12/19 13:00 09/13/19 08:36 DC 09/13/19 06:05 1,000 MLS/HR Potassium Chloride 15 meq/ Bicarbonate Dialysis Soln w/ out KCl 5,007.5 ml @ 1,000 mls/ hr Q5H1M 09/17/19 16:00 09/20/19 09:27 1,000 MLS/HR Potassium Chloride 20 meq/ Bicarbonate Dialysis Soln w/ out KCl 5,010 ml @ 1,000 mls/hr Q5H1M 09/15/19 13:45 09/17/19 07:39 DC 09/17/19 02:18 1,000 MLS/HR Propofol 100 ml @ 0 mls/hr CONT PRN 09/11/19 10:15 09/13/19 15:56 DC Sodium Bicarbonate 100 meq/Dextrose 1,100 ml @ 75 mls/hr [id number] 09/11/19 09:00 09/13/19 15:56 DC 09/13/19 06:03 75 MLS/HR Sodium Bicarbonate (Sodium Bicarb Adult 8.4% Syr) 100 meq 1X ONCE 09/11/19 11:15 09/11/19 11:16 DC 09/11/19 11:28 100 MEQ Sodium Chloride 500 ml @ 500 mls/hr 1X ONCE 09/11/19 21:15 09/11/19 22:14 DC 09/11/19 21:21 500 MLS/HR Sodium Chloride (Normal Saline Flush) 10 ml QSHIFT PRN 09/10/19 07:00 Succinylcholine Chloride (Anectine) 200 mg STK-MED ONCE 09/11/19 10:57 09/11/19 10:57 DC Vancomycin HCl (Vanco Per Pharmacy) 1 each PRN DAILY PRN 09/10/19 14:00 09/11/19 07:59 DC 09/10/19 16:55 1 EACH Vancomycin HCl (Vancomycin Trough Level) 1 each 1X ONCE 09/12/19 16:00 09/11/19 08:01 DC Vancomycin HCl 1.5 gm/Sodium Chloride 500 ml @ 250 mls/hr 1X ONCE 09/10/19 14:00 09/10/19 15:59 DC 09/10/19 16:39 250 MLS/HR Vancomycin HCl 1 gm/Sodium Chloride 250 ml @ 250 mls/hr Q24H 09/11/19 16:30 09/11/19 07:59 DC Vasopressin 40 unit/Dextrose 102 ml @ 6 mls/hr CONT PRN 09/11/19 11:30 09/16/19 22:52 6 MLS/HR Labs: Lab Laboratory Tests Test 09/21/19 05:30 White Blood Count 32.9 x10^3/uL (4.0-11.0) Red Blood Count 4.36 x10^6/uL (4.30-5.70) Hemoglobin 10.3 g/dL (13.0-17.5) Hematocrit 32.6 % (39.0-53.0) Mean Corpuscular Volume 75 fL (79-100) Mean Corpuscular Hemoglobin 24 pg (25-35) Mean Corpuscular Hemoglobin Concent 32 g/dL (31-37) Red Cell Distribution Width 20.2 % (11.5-14.5) Platelet Count 133 x10^3/uL (140-400) Prothrombin Time 18.9 SEC (11.7-14.0) Prothromb Time International Ratio 1.6 (0.8-1.1) Activated Partial Thromboplast Time 34 SEC (24-38) Sodium Level 138 mmol/L (136-145) Potassium Level 5.7 mmol/L (3.5-5.1) Chloride Level 104 mmol/L (98-107) Carbon Dioxide Level 25 mmol/L (21-32) Anion Gap 9 (6-14) Blood Urea Nitrogen 72 mg/dL (8-26) Creatinine 2.4 mg/dL (0.7-1.3) Estimated GFR (Cockcroft-Gault) 26.3 BUN/Creatinine Ratio 30 (6-20) Glucose Level 231 mg/dL (70-99) Calcium Level 8.0 mg/dL (8.5-10.1) Total Bilirubin 22.7 mg/dL (0.2-1.0) Aspartate Amino Transf (AST/SGOT) 262 U/L (15-37) Alanine Aminotransferase (ALT/SGPT) 336 U/L (16-63) Alkaline Phosphatase 164 U/L (46-116) Total Protein 5.1 g/dL (6.4-8.2) Albumin 1.7 g/dL (3.4-5.0) Albumin/Globulin Ratio 0.5 (1.0-1.7) Micro reviewed bc neg throat c/s neg sputum neg Objective: Assessment: Pt with multiorgan failure 1. Respiratory failure. Pulmonary infiltrates with acute respiratory distress syndrome.on empiric broad spectrum, sputum c/s neg, RVP neg, legionella neg, coccidiodes neg, cmv neg, sputum c/s neg ,yeast likely colonization 2. Leukocytosis.increasing, on steroids 3 Acute kidney injury, multifactorial from hypotension on CRRT, 4. Hepatic failure ,hyperbilirubinemia, multifactorial including likely shock liver U/S Cholelithiasis with mild gallbladder wall thickening. No pericholecystic fluid. hepatic steatosis.worsening bilirubin, gi following 5. DIC 6 History of rheumatoid arthritis, had been on naproxen. 7 .A fib with RVR and Circulatory failure. 8. Thrombocytopenia improving 9. GI Bleed stable 10. Encephalopathy MRI brain noted, 11. ABbn MRI Punctate gradient hypointensity within the left frontal lobe, favor prior microhemorrhage, less likely tiny cavernous malformation. 12 Paranasal sinus fluid, posterior nasopharyngeal fluid and bilateral bradley-mastoid effusion, 13.Black tongue lesions ? etiology Plan: Plan of Care continue merrem ( 09/15);was on zosyn, off Daptomycin 09/20,was on zyvox prior to that off Levaquin 09/19 start empiric doxycycline start empric micafungin Fungal bc BC check galactomannan cont supportive care f/u c/s and labs oral care Pt needs ENT OR Oral maxillo surgeon to evaluate tongue lesion MRI brain noted Condition critical Prognosis very poor D/W Nursing staff D/W at bedside ENMANUEL GAN MD Sep 21, 2019 08:17
[2019-09-21] MEDS ORDERED: 0.9 % SODIUM CHLORIDE 10 ML DISP.SYRIN. IV PRN ×2 (08:45)
[2019-09-21] MEDS ORDERED: ALBUMIN HUMAN 25% 200 ML IV PRN (08:45)
[2019-09-21] MEDS ORDERED: DIALYSIS PATIENT. MC PRN (08:45)
[2019-09-21] MEDS ORDERED: IV NORMAL SALINE 1000ML BAG 1,000 ML IV PRN ×2 (08:45)
--- NOTE | 2019-09-21 09:01 | NUR ---
SS following up with discharge planning. SS phoned and faxed clinical updates to [facility], ; fax [phone], and [facility], ; fax [phone]. SS will continue to follow for discharge planning.
--- NOTE | 2019-09-21 09:21 | PDOC ---
SUBJECTIVE ROS Intubated,minimally responsive OBJECTIVE Vital Signs Vital Signs Date Time Temp Pulse Resp B/P (MAP) Pulse Ox O2 Delivery O2 Flow Rate FiO2 09/21/19 08:00 98.3 104 20 164/70 (101) 98 Ventilator 98.3 I & 0 Intake and Output 09/21/19 07:00 Intake Total 1063 ml Output Total 0 ml Balance 1063 ml Intake Oral 102 ml Tube Feeding 961 ml Output Urine Total 0 ml Gastric Drainage Total 0 ml PHYSICAL EXAM Physical Exam GENERAL: orally intubated on vent HEENT: Orally intubated NECK: Supple, LUNGS: Clear. HEART: S1, S2 regular. ABDOMEN: Soft, EXTREMITIES: No edema, cyanosis. SKIN: Jaundice . NEUROLOGIC: intubated gould + DIAGNOSIS/ASSESSMENT Assessment & Plan PEDRO- ATN due to Sepsis , Anuric Started On CRRT 09/11 , tyoday switched to HD , currently tolerating well Continue as ordered , Stanton Kim Sepsis -On Abx Metabolic Encephalopathy - MRI unremarkable EEG done, Neurology following Hypotension- off pressors , stable, switched to hemo, monitor Elevated LFT's - suspect shock liver, Improving Bilirubin increasing, GI and Hem following Ac Hypoxic Resp failure- Intubated /MV Abnormal CT chest revealing bilateral pulmonary infiltrates. Pneumonia Possible interstitial lung disease/pulmonary fibrosis. History of rheumatoid arthritis. Atrial fibrillation with rapid ventricular response. Cardioverted Discussed witH RN at bedside COMMENT/RELEVANT DATA Meds Current Medications Medications (Trade) Dose Ordered Sig/Evena Start Time Stop Time Status Last Admin Dose Admin Albumin Human 200 ml @ 200 mls/hr 1X PRN PRN 09/21/19 08:45 09/21/19 14:44 Albuterol Sulfate (Ventolin Neb Soln) 2.5 mg RTQID 09/10/19 08:00 09/21/19 07:03 2.5 MG Amiodarone HCl 450 mg/Dextrose 259 ml @ 17 mls/hr CONT PRN 09/10/19 09:00 09/11/19 02:33 17 MLS/HR Azithromycin (Zithromax) 250 mg DAILY 09/10/19 09:00 09/10/19 13:35 DC 09/10/19 08:38 250 MG Bisacodyl (Dulcolax Supp) 10 mg PRN DAILY PRN 09/10/19 10:00 09/10/19 10:00 10 MG Calcium Chloride 12.5 meq/ Bicarbonate Dialysis Soln w/ out KCl 5,008.9286 ml @ 1,000 mls/hr Q5H1M 09/12/19 13:00 09/12/19 12:18 DC Calcium Chloride 12.5 meq/ Potassium Chloride 5 meq/ Bicarbonate Dialysis Soln w/ out KCl 5,011.4286 ml @ 1,000 mls/hr Q5H1M 09/17/19 12:00 09/17/19 18:33 DC 09/17/19 13:05 1,000 MLS/HR Ceftriaxone Sodium (Rocephin) 1 gm Q24H 09/10/19 12:00 09/10/19 13:35 DC 09/10/19 12:55 1 GM Daptomycin 320 mg/ Sodium Chloride 50 ml @ 100 mls/hr Q24H 09/13/19 08:00 09/20/19 07:33 DC 09/19/19 08:12 100 MLS/HR Diltiazem HCl 125 mg/Dextrose 125 ml @ 0 mls/hr CONT PRN 09/10/19 06:30 09/11/19 05:40 10 MLS/HR Doxycycline Hyclate 100 mg/ Dextrose 100 ml @ 50 mls/hr Q12HR 09/21/19 09:00 Dutasteride (Avodart) 0.5 mg DAILY 09/10/19 09:00 09/20/19 08:39 0.5 MG Epinephrine HCl 4 mg/Sodium Chloride 254 ml @ 28.061 mls/ hr CONT PRN 09/11/19 15:45 09/13/19 15:56 DC Fentanyl Citrate (Fentanyl 600 Mcg/30 ml ROD HANGER) 600 mcg STK-MED ONCE 09/11/19 11:28 09/12/19 15:46 DC Fluconazole/ Sodium Chloride 50 ml @ 100 mls/hr Q24H 09/16/19 08:15 09/16/19 08:14 DC Furosemide (Lasix) 40 mg 1X ONCE 09/10/19 15:45 09/10/19 15:46 DC 09/10/19 16:38 40 MG Influenza Virus Vaccine Quadrival (Afluria Quad 2019-20 (3yr Up) Syringe) 0.5 ml ONCE ONCE 09/11/19 09:00 09/11/19 09:01 DC Info (PHARMACY MONITORING -- do not chart) 1 each PRN DAILY PRN 09/21/19 08:45 Lactobacillus Rhamnosus (Culturelle) 1 cap BID 09/10/19 09:00 09/12/19 09:15 DC 09/11/19 21:16 1 CAP Levofloxacin/ Dextrose 100 ml @ 100 mls/hr Q24H 09/12/19 09:00 09/19/19 08:00 DC 09/18/19 13:07 100 MLS/HR Lidocaine HCl (Buffered Lidocaine 1%) 3 ml 1X ONCE 09/11/19 17:15 09/11/19 17:16 DC 09/11/19 17:14 3 ML Lidocaine HCl (Lta Kit) 4 ml STK-MED ONCE 09/10/19 16:00 09/12/19 09:29 DC Lorazepam (Ativan Inj) 0.5 mg 1X ONCE 09/10/19 11:45 09/10/19 11:47 DC 09/10/19 11:48 0.5 MG Meropenem 500 mg/ Sodium Chloride 50 ml @ 100 mls/hr Q12H 09/15/19 21:00 09/20/19 21:14 100 MLS/HR Methylprednisolone Sodium Succinate (SOLU-Medrol 40MG VIAL) 40 mg Q12HR 09/16/19 21:00 09/20/19 21:14 40 MG Micafungin Sodium 100 mg/Dextrose 100 ml @ 100 mls/hr Q24H 09/21/19 09:00 Midazolam HCl 100 ml @ 0 mls/hr CONT PRN 09/11/19 10:15 09/17/19 22:50 5 MLS/HR Morphine Sulfate (Morphine Sulfate) 4 mg PRN Q2HR PRN 09/10/19 21:15 09/20/19 00:40 4 MG Naproxen (Naprosyn) 500 mg PRN BID PRN 09/10/19 06:30 09/12/19 11:01 DC Norepinephrine Bitartrate 250 ml @ 13.81 mls/ hr CONT PRN 09/11/19 10:45 09/18/19 20:17 7.5 MLS/HR Pantoprazole Sodium (PROTONIX VIAL for IV PUSH) 40 mg DAILYAC 09/12/19 12:00 09/20/19 08:00 40 MG Phytonadione (Vitamin K Ampule) 10 mg 1X ONCE 09/16/19 08:45 09/16/19 08:46 UNV Phytonadione 1 mg/ Dextrose 50.1 ml @ 102 mls/hr 1X ONCE 09/12/19 17:00 09/12/19 17:29 DC 09/12/19 17:07 102 MLS/HR Piperacillin Sod/ Tazobactam Sod 3.375 gm/Sodium Chloride 50 ml @ 100 mls/hr 1X ONCE 09/13/19 22:00 09/13/19 22:29 DC 09/13/19 22:27 100 MLS/HR Potassium Chloride 10 meq/ Bicarbonate Dialysis Soln w/ out KCl 5,005 ml @ 1,000 mls/hr Q5H1M 09/12/19 13:00 09/13/19 08:36 DC 09/13/19 06:05 1,000 MLS/HR Potassium Chloride 15 meq/ Bicarbonate Dialysis Soln w/ out KCl 5,007.5 ml @ 1,000 mls/ hr Q5H1M 09/17/19 16:00 09/20/19 09:27 1,000 MLS/HR Potassium Chloride 20 meq/ Bicarbonate Dialysis Soln w/ out KCl 5,010 ml @ 1,000 mls/hr Q5H1M 09/15/19 13:45 09/17/19 07:39 DC 09/17/19 02:18 1,000 MLS/HR Propofol 100 ml @ 0 mls/hr CONT PRN 09/11/19 10:15 09/13/19 15:56 DC Sodium Bicarbonate 100 meq/Dextrose 1,100 ml @ 75 mls/hr [id number] 09/11/19 09:00 09/13/19 15:56 DC 09/13/19 06:03 75 MLS/HR Sodium Bicarbonate (Sodium Bicarb Adult 8.4% Syr) 100 meq 1X ONCE 09/11/19 11:15 09/11/19 11:16 DC 09/11/19 11:28 100 MEQ Sodium Chloride 1,000 ml @ 400 mls/hr Q2H30M PRN 09/21/19 08:45 09/21/19 20:44 Sodium Chloride (Normal Saline Flush) 10 ml 1X PRN PRN 09/21/19 08:45 09/22/19 08:44 Succinylcholine Chloride (Anectine) 200 mg STK-MED ONCE 09/11/19 10:57 09/11/19 10:57 DC Vancomycin HCl (Vanco Per Pharmacy) 1 each PRN DAILY PRN 09/10/19 14:00 09/11/19 07:59 DC 09/10/19 16:55 1 EACH Vancomycin HCl (Vancomycin Trough Level) 1 each 1X ONCE 09/12/19 16:00 09/11/19 08:01 DC Vancomycin HCl 1.5 gm/Sodium Chloride 500 ml @ 250 mls/hr 1X ONCE 09/10/19 14:00 09/10/19 15:59 DC 09/10/19 16:39 250 MLS/HR Vancomycin HCl 1 gm/Sodium Chloride 250 ml @ 250 mls/hr Q24H 09/11/19 16:30 09/11/19 07:59 DC Vasopressin 40 unit/Dextrose 102 ml @ 6 mls/hr CONT PRN 09/11/19 11:30 09/16/19 22:52 6 MLS/HR Lab Laboratory Tests Test 09/21/19 05:30 White Blood Count 32.9 x10^3/uL (4.0-11.0) Red Blood Count 4.36 x10^6/uL (4.30-5.70) Hemoglobin 10.3 g/dL (13.0-17.5) Hematocrit 32.6 % (39.0-53.0) Mean Corpuscular Volume 75 fL (79-100) Mean Corpuscular Hemoglobin 24 pg (25-35) Mean Corpuscular Hemoglobin Concent 32 g/dL (31-37) Red Cell Distribution Width 20.2 % (11.5-14.5) Platelet Count 133 x10^3/uL (140-400) Prothrombin Time 18.9 SEC (11.7-14.0) Prothromb Time International Ratio 1.6 (0.8-1.1) Activated Partial Thromboplast Time 34 SEC (24-38) Sodium Level 138 mmol/L (136-145) Potassium Level 5.7 mmol/L (3.5-5.1) Chloride Level 104 mmol/L (98-107) Carbon Dioxide Level 25 mmol/L (21-32) Anion Gap 9 (6-14) Blood Urea Nitrogen 72 mg/dL (8-26) Creatinine 2.4 mg/dL (0.7-1.3) Estimated GFR (Cockcroft-Gault) 26.3 BUN/Creatinine Ratio 30 (6-20) Glucose Level 231 mg/dL (70-99) Calcium Level 8.0 mg/dL (8.5-10.1) Total Bilirubin 22.7 mg/dL (0.2-1.0) Aspartate Amino Transf (AST/SGOT) 262 U/L (15-37) Alanine Aminotransferase (ALT/SGPT) 336 U/L (16-63) Alkaline Phosphatase 164 U/L (46-116) Total Protein 5.1 g/dL (6.4-8.2) Albumin 1.7 g/dL (3.4-5.0) Albumin/Globulin Ratio 0.5 (1.0-1.7) Results All relevant outside records, renal labs, imaging studies, telemetry/EKG's were reviewed. JAMEL LOPEZ MD Sep 21, 2019 09:21
--- NOTE | 2019-09-21 09:32 | PDOC ---
PULMONARY PROGRESS NOTES Subjective INTUBATED 09/11 BY ANESTHESIA on AC MODE OFF SEDATION SINCE 09/18 UNDERGOING NOW HD NO OVERNIGHT EVENTS Vitals Vital Signs Date Time Temp Pulse Resp B/P (MAP) Pulse Ox O2 Delivery O2 Flow Rate FiO2 09/21/19 08:00 98.3 104 20 164/70 (101) 98 Ventilator 98.3 Lungs: Clear Cardiovascular: S1, S2 Abdomen: Soft, Non-tender, Other Extremities: Other (EDEMA) Skin: Warm Labs Laboratory Tests Test 09/19/19 11:01 09/19/19 17:10 09/19/19 22:55 09/20/19 04:45 Sodium Level 140 mmol/L (136-145) 140 mmol/L (136-145) 139 mmol/L (136-145) 138 mmol/L (136-145) Potassium Level 4.6 mmol/L (3.5-5.1) 4.6 mmol/L (3.5-5.1) 4.8 mmol/L (3.5-5.1) 4.6 mmol/L (3.5-5.1) Chloride Level 104 mmol/L (98-107) 106 mmol/L (98-107) 105 mmol/L (98-107) 103 mmol/L (98-107) Carbon Dioxide Level 27 mmol/L (21-32) 27 mmol/L (21-32) 28 mmol/L (21-32) 26 mmol/L (21-32) Anion Gap 9 (6-14) 7 (6-14) 6 (6-14) 9 (6-14) Blood Urea Nitrogen 35 mg/dL (8-26) 33 mg/dL (8-26) 33 mg/dL (8-26) 33 mg/dL (8-26) Creatinine 1.2 mg/dL (0.7-1.3) 1.1 mg/dL (0.7-1.3) 1.1 mg/dL (0.7-1.3) 1.0 mg/dL (0.7-1.3) Estimated GFR (Cockcroft-Gault) 58.6 64.7 64.7 72.3 Glucose Level 157 mg/dL (70-99) 157 mg/dL (70-99) 141 mg/dL (70-99) 144 mg/dL (70-99) Calcium Level 7.5 mg/dL (8.5-10.1) 6.9 mg/dL (8.5-10.1) 7.5 mg/dL (8.5-10.1) 7.5 mg/dL (8.5-10.1) Phosphorus Level 3.8 mg/dL (2.6-4.7) 3.8 mg/dL (2.6-4.7) 3.7 mg/dL (2.6-4.7) 3.7 mg/dL (2.6-4.7) Magnesium Level 2.6 mg/dL (1.8-2.4) 2.5 mg/dL (1.8-2.4) 2.6 mg/dL (1.8-2.4) 2.7 mg/dL (1.8-2.4) White Blood Count 29.9 x10^3/uL (4.0-11.0) Red Blood Count 4.49 x10^6/uL (4.30-5.70) Hemoglobin 10.6 g/dL (13.0-17.5) Hematocrit 33.2 % (39.0-53.0) Mean Corpuscular Volume 74 fL (79-100) Mean Corpuscular Hemoglobin 24 pg (25-35) Mean Corpuscular Hemoglobin Concent 32 g/dL (31-37) Red Cell Distribution Width 19.5 % (11.5-14.5) Platelet Count 70 x10^3/uL (140-400) BUN/Creatinine Ratio 33 (6-20) Total Bilirubin 20.4 mg/dL (0.2-1.0) Aspartate Amino Transf (AST/SGOT) 276 U/L (15-37) Alanine Aminotransferase (ALT/SGPT) 440 U/L (16-63) Alkaline Phosphatase 151 U/L (46-116) Total Protein 5.3 g/dL (6.4-8.2) Albumin 1.8 g/dL (3.4-5.0) Albumin/Globulin Ratio 0.5 (1.0-1.7) Vitamin B12 Level > 2000 pg/mL (247-911) Thyroid Stimulating Hormone (TSH) 1.949 uIU/mL (0.358-3.74) Test 09/21/19 05:30 White Blood Count 32.9 x10^3/uL (4.0-11.0) Red Blood Count 4.36 x10^6/uL (4.30-5.70) Hemoglobin 10.3 g/dL (13.0-17.5) Hematocrit 32.6 % (39.0-53.0) Mean Corpuscular Volume 75 fL (79-100) Mean Corpuscular Hemoglobin 24 pg (25-35) Mean Corpuscular Hemoglobin Concent 32 g/dL (31-37) Red Cell Distribution Width 20.2 % (11.5-14.5) Platelet Count 133 x10^3/uL (140-400) Prothrombin Time 18.9 SEC (11.7-14.0) Prothromb Time International Ratio 1.6 (0.8-1.1) Activated Partial Thromboplast Time 34 SEC (24-38) Sodium Level 138 mmol/L (136-145) Potassium Level 5.7 mmol/L (3.5-5.1) Chloride Level 104 mmol/L (98-107) Carbon Dioxide Level 25 mmol/L (21-32) Anion Gap 9 (6-14) Blood Urea Nitrogen 72 mg/dL (8-26) Creatinine 2.4 mg/dL (0.7-1.3) Estimated GFR (Cockcroft-Gault) 26.3 BUN/Creatinine Ratio 30 (6-20) Glucose Level 231 mg/dL (70-99) Calcium Level 8.0 mg/dL (8.5-10.1) Total Bilirubin 22.7 mg/dL (0.2-1.0) Aspartate Amino Transf (AST/SGOT) 262 U/L (15-37) Alanine Aminotransferase (ALT/SGPT) 336 U/L (16-63) Alkaline Phosphatase 164 U/L (46-116) Total Protein 5.1 g/dL (6.4-8.2) Albumin 1.7 g/dL (3.4-5.0) Albumin/Globulin Ratio 0.5 (1.0-1.7) Laboratory Tests Test 09/21/19 05:30 White Blood Count 32.9 x10^3/uL (4.0-11.0) Red Blood Count 4.36 x10^6/uL (4.30-5.70) Hemoglobin 10.3 g/dL (13.0-17.5) Hematocrit 32.6 % (39.0-53.0) Mean Corpuscular Volume 75 fL (79-100) Mean Corpuscular Hemoglobin 24 pg (25-35) Mean Corpuscular Hemoglobin Concent 32 g/dL (31-37) Red Cell Distribution Width 20.2 % (11.5-14.5) Platelet Count 133 x10^3/uL (140-400) Prothrombin Time 18.9 SEC (11.7-14.0) Prothromb Time International Ratio 1.6 (0.8-1.1) Activated Partial Thromboplast Time 34 SEC (24-38) Sodium Level 138 mmol/L (136-145) Potassium Level 5.7 mmol/L (3.5-5.1) Chloride Level 104 mmol/L (98-107) Carbon Dioxide Level 25 mmol/L (21-32) Anion Gap 9 (6-14) Blood Urea Nitrogen 72 mg/dL (8-26) Creatinine 2.4 mg/dL (0.7-1.3) Estimated GFR (Cockcroft-Gault) 26.3 BUN/Creatinine Ratio 30 (6-20) Glucose Level 231 mg/dL (70-99) Calcium Level 8.0 mg/dL (8.5-10.1) Total Bilirubin 22.7 mg/dL (0.2-1.0) Aspartate Amino Transf (AST/SGOT) 262 U/L (15-37) Alanine Aminotransferase (ALT/SGPT) 336 U/L (16-63) Alkaline Phosphatase 164 U/L (46-116) Total Protein 5.1 g/dL (6.4-8.2) Albumin 1.7 g/dL (3.4-5.0) Albumin/Globulin Ratio 0.5 (1.0-1.7) Medications Active Scripts Medications Dose Route/Sig Max Daily Dose Days Date Category Naproxen 500 Mg Tablet 1 Tab PO PRN BID PRN 30 09/10/19 Reported Avodart (Dutasteride) 0.5 Mg Capsule 1 Cap PO DAILY 09/10/19 Reported Impression . IMPRESSION: 1. Acute hypoxemic respiratory failure/ARDS 2. SEPTIC SHOCK 3. Abnormal CT chest revealing bilateral pulmonary infiltrates. 4. Pneumonia, suspect gram-negative, gram-positive. 5. Possible acute pulmonary edema. 6. Possible interstitial lung disease/pulmonary fibrosis. 7. History of rheumatoid arthritis. 8. Atrial fibrillation with rapid ventricular response. 9. ACUTE MET ACIDOSIS, 10. ACUTE RENAL FAILURE 11. MET/TOXIC ENCE BRAIN MRI Impression: 1. No acute intracranial abnormality. 2. Moderate global brain parenchymal volume loss including prominent cerebellar volume loss. 3. Punctate gradient hypointensity within the left frontal lobe, favor prior microhemorrhage, less likely tiny cavernous malformation. Comparison with prior imaging studies would be of benefit. 4. Paranasal sinus fluid, posterior nasopharyngeal fluid and bilateral bradley-mastoid effusion, likely related to intubation. US IMPRESSION: 1. Cholelithiasis with mild gallbladder wall thickening. No pericholecystic fluid. HIDA scan can further evaluate gallbladder function if indicated. 2. Increased hepatic echotexture, may indicate steatosis. CXR REVIEWED NO CHANGE Plan . LABS REVIEWED LIVER CHEMISTRIES ABOUT THE SAME MRI BRAIN REPORT NOTED WILL HOLD SEDATION AND TRIAL ONCE AWAKE THIS MAY TAKE UP TO A WEEK TO CLEAR BODY REPEAT CXR REVIEWED RESTART TUBE FEEDING RESIDUAL BETTER NOW CRRT ANTIBX PER ID DVT AND GI PROPH STEROIDS DECREASE CCT 30 MIN D/W RN AND RT D/W RT/RN VIRGEN ROME MD Sep 21, 2019 09:32
--- NOTE | 2019-09-21 09:49 | PDOC ---
SUBJECTIVE Subjective S: plt's recovering, on HD now O: Physical exam: Gen.: Elderly man, sedate resting in bed HEENT: ETT tube, getting HD Labs: Hemoglobin 10.3, white count 32.9, platelets 133 Creatinine 2.4 PTT 34 INR 1.6 T bili 22 Assessment and Plan: He is a 79-year-old man previously healthy other than rheumatoid arthritis that was not on immunosuppressive admitted for pneumonia with A. fib with RVR, lactic acidosis, shock liver, acute kidney injury on HD now, resp failure intubated, sepsis and multiorgan failure, DIC is improving Respiratory failure: Intubated, per pulmonary A. fib with RVR: Cardiology is involved Recent sepsis: per ID Acute kidney injury: On HD now, nephrology is involved DIC: improving, Can transfuse for hemoglobin less than 7 or platelets less than 10,000 spontaneously or with active bleeding goal of 50,000, can give FFP for prolonged PTT prn, can give vitamin K judiciously for elevated INR prn, cryopreciptate can be given to keep fibrinogen greater than 100, it has been, plts improving Prognosis: Poor with multiorgan failure, bili still hi and MS still compromised Thank you kindly and please do not hesitate to call with questions. OBJECTIVE Vital Signs Vital Signs Date Time Temp Pulse Resp B/P (MAP) Pulse Ox O2 Delivery O2 Flow Rate FiO2 09/21/19 08:00 98.3 104 20 164/70 (101) 98 Ventilator 98.3 09/21/19 07:03 98 Ventilator 09/21/19 07:00 105 20 147/75 (99) 99 Ventilator 09/21/19 06:00 109 20 135/62 (86) 98 Ventilator 09/21/19 05:20 100 Ventilator 09/21/19 05:00 107 20 165/86 (112) 98 Ventilator 09/21/19 04:00 Mechanical Ventilator 09/21/19 04:00 98.0 112 20 132/84 (100) 97 Ventilator 98.0 09/21/19 03:36 100 Ventilator 09/21/19 03:00 112 20 146/68 (94) 98 Ventilator 09/21/19 02:05 100 Ventilator 09/21/19 02:00 106 20 124/59 (80) 99 Ventilator 09/21/19 01:00 114 20 127/64 (85) 100 Ventilator 09/21/19 00:00 97.9 122 20 121/77 (92) 100 Ventilator 97.9 09/20/19 23:59 Mechanical Ventilator 09/20/19 23:09 100 Ventilator 09/20/19 23:00 109 20 140/77 (98) 100 Ventilator 09/20/19 22:00 121 20 142/86 (104) 100 Ventilator 09/20/19 21:00 118 19 159/67 (97) 100 Ventilator 09/20/19 20:00 97.8 102 20 124/59 (80) 100 Ventilator 97.8 09/20/19 20:00 Mechanical Ventilator 09/20/19 19:44 100 Ventilator 09/20/19 19:00 106 19 119/72 (88) 100 Ventilator 09/20/19 18:00 111 17 119/70 (86) 97 Ventilator 09/20/19 17:46 100 Ventilator 09/20/19 17:00 105 21 113/68 (83) 100 Ventilator 09/20/19 16:16 99 Ventilator 09/20/19 16:00 Mechanical Ventilator 09/20/19 16:00 97.4 109 20 106/58 (74) 100 Ventilator 97.4 09/20/19 15:00 116 20 161/69 (99) 100 Ventilator 09/20/19 14:00 115 20 148/68 (94) 100 Ventilator 09/20/19 13:00 111 20 140/78 (98) 100 Ventilator 09/20/19 12:21 99 Ventilator 09/20/19 12:00 97.9 102 20 155/76 (102) 100 Ventilator 97.9 09/20/19 11:38 Mechanical Ventilator 09/20/19 11:00 98 20 146/76 (99) 100 Ventilator 09/20/19 10:00 100 20 175/95 (121) 100 Ventilator I & O Intake and Output 09/21/19 07:00 Intake Total 1063 ml Output Total 0 ml Balance 1063 ml Intake Oral 102 ml Tube Feeding 961 ml Output Urine Total 0 ml Gastric Drainage Total 0 ml COMMENT Lab Laboratory Tests Test 09/21/19 05:30 White Blood Count 32.9 x10^3/uL (4.0-11.0) Red Blood Count 4.36 x10^6/uL (4.30-5.70) Hemoglobin 10.3 g/dL (13.0-17.5) Hematocrit 32.6 % (39.0-53.0) Mean Corpuscular Volume 75 fL (79-100) Mean Corpuscular Hemoglobin 24 pg (25-35) Mean Corpuscular Hemoglobin Concent 32 g/dL (31-37) Red Cell Distribution Width 20.2 % (11.5-14.5) Platelet Count 133 x10^3/uL (140-400) Prothrombin Time 18.9 SEC (11.7-14.0) Prothromb Time International Ratio 1.6 (0.8-1.1) Activated Partial Thromboplast Time 34 SEC (24-38) Sodium Level 138 mmol/L (136-145) Potassium Level 5.7 mmol/L (3.5-5.1) Chloride Level 104 mmol/L (98-107) Carbon Dioxide Level 25 mmol/L (21-32) Anion Gap 9 (6-14) Blood Urea Nitrogen 72 mg/dL (8-26) Creatinine 2.4 mg/dL (0.7-1.3) Estimated GFR (Cockcroft-Gault) 26.3 BUN/Creatinine Ratio 30 (6-20) Glucose Level 231 mg/dL (70-99) Calcium Level 8.0 mg/dL (8.5-10.1) Total Bilirubin 22.7 mg/dL (0.2-1.0) Aspartate Amino Transf (AST/SGOT) 262 U/L (15-37) Alanine Aminotransferase (ALT/SGPT) 336 U/L (16-63) Alkaline Phosphatase 164 U/L (46-116) Total Protein 5.1 g/dL (6.4-8.2) Albumin 1.7 g/dL (3.4-5.0) Albumin/Globulin Ratio 0.5 (1.0-1.7) HOWARD CARLTON MD Sep 21, 2019 09:49
[2019-09-21] MEDS: NOREPINEPHRIN 8MG/250ML PREMIX 250 ML IV PRN (10:16)
--- NOTE | 2019-09-21 11:16 | PN ---
DATE: 09/21/2019 SUBJECTIVE: The patient continued to be intubated, mechanically ventilated. He is off the Levophed and all other pressors. His blood pressure is stable. His continuous renal replacement therapy was discontinued and he is scheduled for hemodialysis. Unfortunately, he continued to be unresponsive. He apparently was evaluated by the neurologist and apparently has had an MRI of his brain yesterday, which showed no acute intracranial abnormality, has moderate global brain parenchymal volume loss including prominent cerebellar volume loss, has punctate gradient hypointensity within the left frontal lobe, favor prior microhemorrhage, less likely tiny cavernous malformation in comparison with prior images, study will be of benefit. Paranasal sinus fluid, posterior nasopharyngeal fluid, and bilateral otomastoiditis fluid likely related to intubation. He apparently has had also an EEG, which is abnormal study for the unresponsive state only. No physiological awake, drowsy or sleepy states were recorded. There is paucity of cerebral activity or slowing in the beta and delta sequences. Frequency is noted, but is not active. No focal, lateralizing, specific epileptiform discharge or electrographic seizures seen. The pattern of EEG may suggest diffuse encephalopathy with positive active cerebral activity. PHYSICAL EXAMINATION: GENERAL: When I examined him this morning, he looked pale, no jaundice, cyanosis or thyromegaly. No jugular venous distension. No lower limb edema. VITAL SIGNS: Her heart rate was 105, blood pressure was 147/75, temperature was 98, respiratory rate 20, and oxygen saturation was 99% on FiO2 of 40%. HEAD, EYES, EARS, NOSE AND THROAT: Showed normocephalic, atraumatic. He has orotracheal and orogastric tube in place. NECK: Supple. HEART: Normal first and second heart sounds. No gallop or murmur. CHEST: Clear to auscultation. No crepitation or rhonchi. ABDOMEN: Distended, soft, and nontender. NEUROLOGIC: Continues to be encephalopathic. His intake was 1100. No output was recorded. LABORATORY DATA: As of this morning, his white cell count was 32,900, hemoglobin 10, hematocrit 32, MCV 75, and platelet count of 133. His chemistry showed a serum sodium 138, potassium 5.7, chloride 104, bicarbonate 25, anion gap of 9, BUN 72, creatinine 2.4, estimated GFR was 26 mL per minute. His glucose was 231, calcium was 8. Total bilirubin was 22.7. AST, ALT, alkaline phosphatase are all elevated, although trending down. His total protein was 5.1, albumin was 1.7. His vitamin B12 was more than 2000 and TSH was 1.949. His prothrombin time was 18.9, INR 1.6, and aPTT was 34. ASSESSMENT: 1. Acute respiratory failure secondary to acute respiratory distress and pneumonia. Continues to be intubated, mechanically ventilated, maintaining his oxygen saturation at 97% on FiO2 of 40%. 2. Septic shock requiring vasopressors, on IV antibiotics, resolved. The patient is off all vasopressors and blood pressure is actually within normal range. 3. Community-acquired pneumonia. 4. Acute kidney injury, likely due to acute tubular necrosis secondary to sepsis. He is scheduled for hemodialysis. 5. Deranged liver enzymes with extremely elevated bilirubin. 6. Rheumatoid arthritis. 7. Possible interstitial lung disease and pulmonary fibrosis. 8. Atrial fibrillation with rapid ventricular response for which he was cardioverted. 9. Thrombocytopenia, slightly improved. His most recent platelet actually has risen to 133,000. 10. High gastric residual, improving. He continues to be on his tube feeding. 11. He has what looked like an ischemic area on the tip of his tongue and also tip of his left big toe. PLAN: To continue mechanical ventilation, wean as tolerated. Continue nutritional support through the orogastric tube. Continue with IV antibiotic as per Infectious Disease. He will be started on hemodialysis. Apparently, he was seen by the neurologist and has had an MRI, which showed no evidence of stroke. An EEG showed positive cerebral activity. INGRIS FINCH MD DR: JOSIANE/jose JOB#: [id number] / [id number]
--- NOTE | 2019-09-21 12:04 | PDOC ---
Objective: Objective: PC following - full aggressive care. Reviewed w/ nurse - tolerates tube feeds very slowly - three hours on, three hours off. Vital Signs: Vital Signs Date Time Temp Pulse Resp B/P (MAP) Pulse Ox O2 Delivery O2 Flow Rate FiO2 09/21/19 11:27 100 Ventilator 09/21/19 10:00 133 20 79/40 (53) 09/21/19 08:00 98.3 98.3 Labs: Laboratory Tests Test 09/21/19 05:30 White Blood Count 32.9 x10^3/uL Red Blood Count 4.36 x10^6/uL Hemoglobin 10.3 g/dL Hematocrit 32.6 % Mean Corpuscular Volume 75 fL Mean Corpuscular Hemoglobin 24 pg Mean Corpuscular Hemoglobin Concent 32 g/dL Red Cell Distribution Width 20.2 % Platelet Count 133 x10^3/uL Prothrombin Time 18.9 SEC Prothromb Time International Ratio 1.6 Activated Partial Thromboplast Time 34 SEC Sodium Level 138 mmol/L Potassium Level 5.7 mmol/L Chloride Level 104 mmol/L Carbon Dioxide Level 25 mmol/L Anion Gap 9 Blood Urea Nitrogen 72 mg/dL Creatinine 2.4 mg/dL Estimated GFR (Cockcroft-Gault) 26.3 BUN/Creatinine Ratio 30 Glucose Level 231 mg/dL Calcium Level 8.0 mg/dL Total Bilirubin 22.7 mg/dL Aspartate Amino Transf (AST/SGOT) 262 U/L Alanine Aminotransferase (ALT/SGPT) 336 U/L Alkaline Phosphatase 164 U/L Total Protein 5.1 g/dL Albumin 1.7 g/dL Albumin/Globulin Ratio 0.5 PE: GEN: dialyzing, intubated LUNGS: vent HEART: tachycardic ABD: occasional groan, soft NEURO/PSYCH: does not respond - off sedation A/P: Cholestasis - bili 22 - likely shock/drug/hemolysis -- Other per Dr. Valdez. TERESE FULLER Sep 21, 2019 12:04
[2019-09-21] MEDS: MEROPENEM 500 MG in IV NORMAL SALINE 50ML 50 ML IV SCH ×2 (12:56→21:22)
[2019-09-21] MEDS: methylPREDNISolone SOD SUCC PF 40 MG/ML VIAL. IV SCH ×2 (12:57→21:22)
[2019-09-21] MEDS: PANTOPRAZOLE IV PUSH 40 MG VIAL. IVP SCH (12:57)
[2019-09-21] MEDS: DOXYCYCLINE HYCLATE 100 MG in IV DEXTROSE 5% 100ML 100 ML IV SCH (12:58)
[2019-09-21] MEDS: MICAFUNGIN 100 MG in IV DEXTROSE 5% 100ML 100 ML IV SCH (12:58)
[2019-09-21] MEDS: DUTASTERIDE 0.5 MG CAPSULE PO SCH (12:59)
--- NOTE | 2019-09-21 13:11 | PDOC ---
PROGRESS NOTES Assessment Assessment Coma. Metabolic encephalopathy. Respiratory failure. Pulmonary edema. Leukocytosis. Renal failure. Hyperbilirubinemia. Hepatic injury. HTN. Gout. No evidence of acute CVA at the present time. Poor prognosis. RECOMMENDATIONS/PLAN: Continue life support in ICU. Treat medical diseases. Discussed with his and son at bedside in ICU on 09/20/19. EEG on 09/20/19: Paucity of cerebral activity. MRI: No acute CVA. HISTORY OF THE PRESENT ILLNESS: This is a 79-year-old male patient developed symptoms of productive cough with sputum for about 1 week. His symptoms became worse with SOB and he was brought to [facility] ER of [facility]. He was revealed AFib with RVR. He received cardiovert 2 times. He was eventually transferred to ICU of [facility]. Neurology was requested for a consultation due to not gaining consciousness 2 days after sedation was stopped. On 09/21/19: He still in comatose state. PAST MEDICAL HISTORY: Commute acquired pneumonia ARDS CHF Acute kidney injury Sepsis Fever Shock liver A. fib with RVR Coagulopathy DIC Anemia Rheumatoid arthritis self-treated with CBD oil prior to admit BPH Gout PAST SURGERY HISTORY: Cataract surgery Right IJ hemodialysis catheter Appendectomy FAMILY HISTORY: Cancer in one of his sons. Social history: , Retired , no tobacco since , occasional alcohol, no drugs, CBD oil ALLERGY: NKDA MEDICATIONS: Refer to MAR REVIEW OF SYSTEMS: Constitutional: No malnutrition, cachexia. Head: No recent traumatic brain or head injury. Skin: No edema, or rash. Ear: No infection. Eyes: No vision loss or color blindness. Nose: No bleeding or purulent discharges. Hearing: Hearing decrease. Neck: No injury. Cardiac: AFib, HTN. Pulmonary: Pneumonia. GI: No GI ulcer, GI bleeding. Urinary/genital:CKD? Endocrinologic: No cousin face, craniofacial dysmorphism, polydactyly. Skeletomuscular: No muscular atrophy, deformity. Neurological: see HP. Psychiatric: Denies drug use/abuse. Otherwise, not [id number] review of systems. PHYSICAL EXAMINATION: General appearance is in subacute distress. HEENT: Normocephalic and nontraumatic. Eyes, nose, ears, and throat are unremarkable. Neck is supple. No lymphadenopathy. No crepitus. Cardiovascular: S1, S2. Pulmonary: On vent. Abdomen: Bowel sounds are positive. Extremities: Significant edema. NEUROLOGICAL EXAMINATION: Unresponsive. On vent. Not oriented to time, place and person. Pupils 1 mm, insensitive to light stimuli. Corneal reflex very weak. EOMI not elicited. CN: no focal findings. Muscle tone: Decreased. Muscle strength: No movements to stimuli. DTR: 0-1 Plantar reflex: No response bilaterally Gait: unable to walk. Sensory exam: no response to pain stimuli. Not able to access cerebellar signs. F-T-N test not performed due to in comatose. Objective Objective Vital Signs Date Time Temp Pulse Resp B/P (MAP) Pulse Ox O2 Delivery O2 Flow Rate FiO2 09/21/19 12:00 98.0 93 20 133/79 (97) 100 Ventilator 98.0 Intake and Output 09/21/19 07:00 Intake Total 1063 ml Output Total 0 ml Balance 1063 ml Intake Oral 102 ml Tube Feeding 961 ml Output Urine Total 0 ml Gastric Drainage Total 0 ml Vitals Signs Vitals VS - Last 72 Hours, by Label Date Time Temp Pulse Resp B/P (MAP) Pulse Ox O2 Delivery O2 Flow Rate FiO2 09/21/19 12:00 98.0 93 20 133/79 (97) 100 Ventilator 98.0 09/21/19 12:00 Mechanical Ventilator 09/21/19 11:27 100 Ventilator 09/21/19 11:00 119 20 115/75 (88) 100 Ventilator 09/21/19 10:15 132 20 100/52 (68) 100 Ventilator 09/21/19 10:00 133 20 79/40 (53) 98 Ventilator 09/21/19 09:00 118 20 138/71 (93) 98 Ventilator 09/21/19 09:00 100 Ventilator 09/21/19 08:00 Mechanical Ventilator 09/21/19 08:00 98.3 104 20 164/70 (101) 98 Ventilator 98.3 09/21/19 07:03 98 Ventilator 09/21/19 07:00 105 20 147/75 (99) 99 Ventilator 09/21/19 06:00 109 20 135/62 (86) 98 Ventilator 09/21/19 05:20 100 Ventilator 09/21/19 05:00 107 20 165/86 (112) 98 Ventilator 09/21/19 04:00 Mechanical Ventilator 09/21/19 04:00 98.0 112 20 132/84 (100) 97 Ventilator 98.0 09/21/19 03:36 100 Ventilator 09/21/19 03:00 112 20 146/68 (94) 98 Ventilator 09/21/19 02:05 100 Ventilator 09/21/19 02:00 106 20 124/59 (80) 99 Ventilator 09/21/19 01:00 114 20 127/64 (85) 100 Ventilator 09/21/19 00:00 97.9 122 20 121/77 (92) 100 Ventilator 97.9 09/20/19 23:59 Mechanical Ventilator 09/20/19 23:09 100 Ventilator 09/20/19 23:00 109 20 140/77 (98) 100 Ventilator 09/20/19 22:00 121 20 142/86 (104) 100 Ventilator 09/20/19 21:00 118 19 159/67 (97) 100 Ventilator 09/20/19 20:00 97.8 102 20 124/59 (80) 100 Ventilator 97.8 09/20/19 20:00 Mechanical Ventilator 09/20/19 19:44 100 Ventilator 09/20/19 19:00 106 19 119/72 (88) 100 Ventilator 09/20/19 18:00 111 17 119/70 (86) 97 Ventilator 09/20/19 17:46 100 Ventilator 09/20/19 17:00 105 21 113/68 (83) 100 Ventilator 09/20/19 16:16 99 Ventilator 09/20/19 16:00 Mechanical Ventilator 09/20/19 16:00 97.4 109 20 106/58 (74) 100 Ventilator 97.4 09/20/19 15:00 116 20 161/69 (99) 100 Ventilator 09/20/19 14:00 115 20 148/68 (94) 100 Ventilator 09/20/19 13:00 111 20 140/78 (98) 100 Ventilator 09/20/19 12:21 99 Ventilator 09/20/19 12:00 97.9 102 20 155/76 (102) 100 Ventilator 97.9 09/20/19 11:38 Mechanical Ventilator 09/20/19 11:00 98 20 146/76 (99) 100 Ventilator 09/20/19 10:00 100 20 175/95 (121) 100 Ventilator 09/20/19 09:30 97 Ventilator 09/20/19 09:00 105 20 172/91 (118) 100 Ventilator 09/20/19 08:00 98.4 113 20 124/70 (88) 100 Ventilator 98.4 09/20/19 08:00 Mechanical Ventilator 09/20/19 07:48 99 Ventilator 09/20/19 07:00 103 20 131/74 (93) 99 Ventilator Laboratory Laboratory Laboratory Tests Test 09/21/19 05:30 White Blood Count 32.9 x10^3/uL (4.0-11.0) Red Blood Count 4.36 x10^6/uL (4.30-5.70) Hemoglobin 10.3 g/dL (13.0-17.5) Hematocrit 32.6 % (39.0-53.0) Mean Corpuscular Volume 75 fL (79-100) Mean Corpuscular Hemoglobin 24 pg (25-35) Mean Corpuscular Hemoglobin Concent 32 g/dL (31-37) Red Cell Distribution Width 20.2 % (11.5-14.5) Platelet Count 133 x10^3/uL (140-400) Prothrombin Time 18.9 SEC (11.7-14.0) Prothromb Time International Ratio 1.6 (0.8-1.1) Activated Partial Thromboplast Time 34 SEC (24-38) Sodium Level 138 mmol/L (136-145) Potassium Level 5.7 mmol/L (3.5-5.1) Chloride Level 104 mmol/L (98-107) Carbon Dioxide Level 25 mmol/L (21-32) Anion Gap 9 (6-14) Blood Urea Nitrogen 72 mg/dL (8-26) Creatinine 2.4 mg/dL (0.7-1.3) Estimated GFR (Cockcroft-Gault) 26.3 BUN/Creatinine Ratio 30 (6-20) Glucose Level 231 mg/dL (70-99) Calcium Level 8.0 mg/dL (8.5-10.1) Total Bilirubin 22.7 mg/dL (0.2-1.0) Aspartate Amino Transf (AST/SGOT) 262 U/L (15-37) Alanine Aminotransferase (ALT/SGPT) 336 U/L (16-63) Alkaline Phosphatase 164 U/L (46-116) Total Protein 5.1 g/dL (6.4-8.2) Albumin 1.7 g/dL (3.4-5.0) Albumin/Globulin Ratio 0.5 (1.0-1.7) Microbiology 09/13/19 - Final, Complete 09/13/19 - Final, Complete 09/13/19 - Final, Complete 09/13/19 Gram Stain Evaluation - Final, Complete 09/13/19 Sputum Culture - Final, Complete 09/13/19 Sputum Result 1 - Final, Complete 09/12/19 Blood Culture - Final, Complete NO GROWTH AFTER 5 DAYS Medication Medications Current Medications Albumin Human 200 ml @ 200 mls/hr 1X PRN PRN IV Hypotension Last administered on 09/21/19at 10:12; Start 09/21/19 at 08:45; Stop 09/21/19 at 14:44 Doxycycline Hyclate 100 mg/ Dextrose 100 ml @ 50 mls/hr Q12HR IV Last administered on 09/21/19at 12:58; Start 09/21/19 at 09:00 Info (PHARMACY MONITORING -- do not chart) 1 each PRN DAILY PRN MC SEE COMMENTS; Start 09/21/19 at 08:45 Micafungin Sodium 100 mg/Dextrose 100 ml @ 100 mls/hr Q24H IV Last administered on 09/21/19at 12:58; Start 09/21/19 at 09:00 Sodium Chloride 1,000 ml @ 400 mls/hr Q2H30M PRN IV PATENCY; Start 09/21/19 at 08:45; Stop 09/21/19 at 20:44 Sodium Chloride 1,000 ml @ 1,000 mls/hr Q1H PRN IV hypotension; Start 09/21/19 at 08:45; Stop 09/21/19 at 14:44 Sodium Chloride (Normal Saline Flush) 10 ml 1X PRN PRN IV AP catheter pack; Start 09/21/19 at 08:45; Stop 09/22/19 at 08:44 Sodium Chloride (Normal Saline Flush) 10 ml 1X PRN PRN IV CUSTOMER ORDER CLERK catheter pack; Start 09/21/19 at 08:45; Stop 09/22/19 at 08:44 Comment Review of Relevant I have reviewed the following items dionicio (where applicable) has been applied. BERT BARRON MD Sep 21, 2019 13:11
[2019-09-21] MEDS: METOCLOPRAMIDE HCL 10 MG/2 ML VIAL. IVP SCH (17:35)
--- NOTE | 2019-09-21 21:25 | NUR ---
Holding doxycycline until 0000 due to previous late administration.
[2019-09-22] VITALS (24 sets, daily range): BP systolic 77–172; BP diastolic 49–95
[2019-09-22] MEDS: METOCLOPRAMIDE HCL 10 MG/2 ML VIAL. IVP SCH ×4 (00:03→18:13)
[2019-09-22] MEDS: DOXYCYCLINE HYCLATE 100 MG in IV DEXTROSE 5% 100ML 100 ML IV SCH ×3 (00:04→21:02)
--- NOTE | 2019-09-22 00:50 | NUR ---
Dark green/bile emesis noted on pt's pillow, will continue to hold tube feeding at this time.
[2019-09-22 06:07] LABS: HEMATOCRIT 27.6 % (39.0-53.0); HEMOGLOBIN 8.9 g/dL (13.0-17.5); RED BLOOD COUNT 3.67 x10^6/uL (4.30-5.70); RED CELL DISTRIBUTION WIDTH 21.9 % (11.5-14.5); WHITE BLOOD COUNT 37.5 x10^3/uL (4.0-11.0)
--- NOTE | 2019-09-22 06:16 | PDOC ---
PULMONARY PROGRESS NOTES Subjective INTUBATED 09/11 BY ANESTHESIA on AC MODE OFF SEDATION SINCE 09/18, open eyes w verbal stimuli UNDERGOING NOW HD small ett secretion Vitals Vital Signs Date Time Temp Pulse Resp B/P (MAP) Pulse Ox O2 Delivery O2 Flow Rate FiO2 09/22/19 05:39 99 Ventilator 09/22/19 05:00 125 20 85/57 (66) 09/22/19 04:00 99.0 99.0 Comments ros as mentioned as above discussed w rn, other sys otherwise neg on vent, doesnt follow my commands HEENT: Other (nc at perrl nose clear orally intubated neck no lad no thyromegaly) Lungs: Crackles Cardiovascular: S1, S2 Abdomen: Soft, Non-tender, Other (no mass) Extremities: Other (EDEMA) Skin: Warm Labs Laboratory Tests Test 09/21/19 05:30 White Blood Count 32.9 x10^3/uL (4.0-11.0) Red Blood Count 4.36 x10^6/uL (4.30-5.70) Hemoglobin 10.3 g/dL (13.0-17.5) Hematocrit 32.6 % (39.0-53.0) Mean Corpuscular Volume 75 fL (79-100) Mean Corpuscular Hemoglobin 24 pg (25-35) Mean Corpuscular Hemoglobin Concent 32 g/dL (31-37) Red Cell Distribution Width 20.2 % (11.5-14.5) Platelet Count 133 x10^3/uL (140-400) Prothrombin Time 18.9 SEC (11.7-14.0) Prothromb Time International Ratio 1.6 (0.8-1.1) Activated Partial Thromboplast Time 34 SEC (24-38) Sodium Level 138 mmol/L (136-145) Potassium Level 5.7 mmol/L (3.5-5.1) Chloride Level 104 mmol/L (98-107) Carbon Dioxide Level 25 mmol/L (21-32) Anion Gap 9 (6-14) Blood Urea Nitrogen 72 mg/dL (8-26) Creatinine 2.4 mg/dL (0.7-1.3) Estimated GFR (Cockcroft-Gault) 26.3 BUN/Creatinine Ratio 30 (6-20) Glucose Level 231 mg/dL (70-99) Calcium Level 8.0 mg/dL (8.5-10.1) Total Bilirubin 22.7 mg/dL (0.2-1.0) Aspartate Amino Transf (AST/SGOT) 262 U/L (15-37) Alanine Aminotransferase (ALT/SGPT) 336 U/L (16-63) Alkaline Phosphatase 164 U/L (46-116) Total Protein 5.1 g/dL (6.4-8.2) Albumin 1.7 g/dL (3.4-5.0) Albumin/Globulin Ratio 0.5 (1.0-1.7) Medications Active Scripts Medications Dose Route/Sig Max Daily Dose Days Date Category Naproxen 500 Mg Tablet 1 Tab PO PRN BID PRN 30 09/10/19 Reported Avodart (Dutasteride) 0.5 Mg Capsule 1 Cap PO DAILY 09/10/19 Reported Comments cxr b lat infilt ett too high Impression . IMPRESSION: 1. Acute hypoxemic respiratory failure/ARDS 2. SEPTIC SHOCK 3. Abnormal CT chest revealing bilateral pulmonary infiltrates. 4. Pneumonia, suspect gram-negative, gram-positive. 5. Possible acute pulmonary edema. 6. Possible interstitial lung disease/pulmonary fibrosis. 7. History of rheumatoid arthritis. 8. Atrial fibrillation with rapid ventricular response. 9. ACUTE MET ACIDOSIS, 10. ACUTE RENAL FAILURE 11. MET/TOXIC encephalopathy BRAIN MRI Impression: 1. No acute intracranial abnormality. 2. Moderate global brain parenchymal volume loss including prominent cerebellar volume loss. 3. Punctate gradient hypointensity within the left frontal lobe, favor prior microhemorrhage, less likely tiny cavernous malformation. Comparison with prior imaging studies would be of benefit. 4. Paranasal sinus fluid, posterior nasopharyngeal fluid and bilateral bradley-mastoid effusion, likely related to intubation. US IMPRESSION: 1. Cholelithiasis with mild gallbladder wall thickening. No pericholecystic fluid. HIDA scan can further evaluate gallbladder function if indicated. 2. Increased hepatic echotexture, may indicate steatosis. Plan . cont vent support, setting reviewed, abg reviewed, will decrease rr to 16, not alert enough to do sbt advance ett elevate hob LABS REVIEWED LIVER CHEMISTRIES improving slowly MRI BRAIN REPORT NOTED cont HOLDing SEDATION AND TRIAL ONCE AWAKE, may need trach REPEAT CXR REVIEWED TUBE FEEDING HD per nephro ANTIBX PER ID DVT AND GI PROPH change solumedrol to daily D/W RT/RN BRAULIO SALES MD Sep 22, 2019 06:16
[2019-09-22 06:39] LABS: ALBUMIN 1.9 g/dL (3.4-5.0); ALBUMIN/GLOBULIN RATIO 0.7 (1.0-1.7); CALCIUM 7.5 mg/dL (8.5-10.1); CREATININE 3.1 mg/dL (0.7-1.3); GFR 19.6; TOTAL PROTEIN 4.6 g/dL (6.4-8.2)
[2019-09-22 06:41] LABS: POTASSIUM 5.5 mmol/L (3.5-5.1); TOTAL BILIRUBIN 26.1 mg/dL (0.2-1.0)
[2019-09-22] MEDS: ALBUTEROL SULFATE 2.5 MG/3 ML NEBU. NEB SCH ×4 (07:02→20:32)
--- NOTE | 2019-09-22 07:19 | RAD ---
PORTABLE CHEST 1V History: Respiratory failure Comparison: September 21, 2019 Findings: Diffuse interstitial and alveolar opacities, similar compared to prior. No pneumothorax. No pleural effusion. Unchanged right IJ central lines. Unchanged endotracheal tube and enteric tube. External proximal enteric tube line projecting over the right mediastinum. Impression: 1. Diffuse interstitial and alveolar opacities, similar compared to prior. Electronically signed by: Joe Jacobo DO (09/22/2019 7:17 AM) [facility]
[2019-09-22] MEDS: PANTOPRAZOLE IV PUSH 40 MG VIAL. IVP SCH (07:34)
[2019-09-22] MEDS ORDERED: IV NORMAL SALINE 1000ML BAG 1,000 ML IV PRN ×2 (07:37)
[2019-09-22] MEDS ORDERED: DIALYSIS PATIENT. MC PRN (07:45)
[2019-09-22] MEDS ORDERED: ALBUMIN HUMAN 25% 200 ML IV PRN (07:45)
[2019-09-22] MEDS ORDERED: 0.9 % SODIUM CHLORIDE 10 ML DISP.SYRIN. IV PRN ×2 (07:45)
[2019-09-22] MEDS: DUTASTERIDE 0.5 MG CAPSULE PO SCH (09:00)
--- NOTE | 2019-09-22 09:10 | PDOC ---
Infectious Disease Note Subjective Subjective Off sedation Remains unresponsive and orally intubated, FiO2 40% Tube feedings + BM No fevers reported ROS ROS unobtainable Vital Sign Vital Signs Vital Signs Date Time Temp Pulse Resp B/P (MAP) Pulse Ox O2 Delivery O2 Flow Rate FiO2 09/22/19 08:00 Mechanical Ventilator 09/22/19 08:00 99.0 124 25 95/58 (70) 100 99.0 Physical Exam PHYSICAL EXAM GENERAL: orally intubated on vent, dialyzing HEENT: icteric, OGT, ETT +, large black dorsal tongue lesions ,ventral tongue ulceration , cannot visualize the whole mouth NECK: RIJ & HDC clean LUNGS: Clear anteriorly HEART: S1, S2 irregular ABDOMEN: Soft, mildly distended, BS + : Fisher EXTREMITIES: + generalized edema, purplish discoloration of toes. + heel protectors SKIN: No rash NEUROLOGIC: unresponsive Labs Lab Laboratory Tests Test 09/22/19 05:30 09/22/19 05:55 White Blood Count 37.5 x10^3/uL (4.0-11.0) Red Blood Count 3.67 x10^6/uL (4.30-5.70) Hemoglobin 8.9 g/dL (13.0-17.5) Hematocrit 27.6 % (39.0-53.0) Mean Corpuscular Volume 75 fL (79-100) Mean Corpuscular Hemoglobin 24 pg (25-35) Mean Corpuscular Hemoglobin Concent 32 g/dL (31-37) Red Cell Distribution Width 21.9 % (11.5-14.5) Platelet Count 134 x10^3/uL (140-400) Prothrombin Time 23.0 SEC (11.7-14.0) Prothromb Time International Ratio 2.1 (0.8-1.1) Activated Partial Thromboplast Time 36 SEC (24-38) Sodium Level 137 mmol/L (136-145) Potassium Level 5.5 mmol/L (3.5-5.1) Chloride Level 100 mmol/L (98-107) Carbon Dioxide Level 20 mmol/L (21-32) Anion Gap 17 (6-14) Blood Urea Nitrogen 72 mg/dL (8-26) Creatinine 3.1 mg/dL (0.7-1.3) Estimated GFR (Cockcroft-Gault) 19.6 BUN/Creatinine Ratio 23 (6-20) Glucose Level 202 mg/dL (70-99) Calcium Level 7.5 mg/dL (8.5-10.1) Total Bilirubin 26.1 mg/dL (0.2-1.0) Aspartate Amino Transf (AST/SGOT) 239 U/L (15-37) Alanine Aminotransferase (ALT/SGPT) 230 U/L (16-63) Alkaline Phosphatase 147 U/L (46-116) Total Protein 4.6 g/dL (6.4-8.2) Albumin 1.9 g/dL (3.4-5.0) Albumin/Globulin Ratio 0.7 (1.0-1.7) Ammonia < 10 mcmol/L (11-34) Micro 09/21. BLOOD CULTURE Preliminary NO GROWTH AFTER 1 DAY SPUTUM CULT RES 1 Final Yeast isolated. Objective Assessment Multiorgan failure Respiratory failure. Pulmonary infiltrates with ARDS - sputum c/s neg, yeast likely colonization, RVP neg, legionella neg, coccidiodes neg, cmv neg, Leukocytosis. increasing on steroids Acute kidney injury, multifactorial from hypotension on CRRT, Hepatic failure ,hyperbilirubinemia, multifactorial including likely shock liver - U/S Cholelithiasis with mild gallbladder wall thickening. No pericholecystic fluid. hepatic steatosis.worsening bilirubin, GI following DIC History of rheumatoid arthritis, had been on naproxen. A fib with RVR and Circulatory failure. Thrombocytopenia improving GI Bleed stable Encephalopathy MRI brain noted, ABbn MRI Punctate gradient hypointensity within the left frontal lobe, favor prior microhemorrhage, less likely tiny cavernous malformation. Paranasal sinus fluid, posterior nasopharyngeal fluid and bilateral bradley-mastoid effusion, Black tongue lesions ? etiology Plan Plan of Care continue merrem ( 09/15); Doxy and micafungin off Daptomycin 09/20,was on zyvox prior to that off Zosyn off Levaquin 09/19 Fungal BC BC galactomannan cont supportive care f/u c/s and labs oral care Pt needs ENT OR Oral maxillo surgeon to evaluate tongue lesion Condition critical Prognosis very poor D/W Nursing staff Patient seen and examined. Chart reviewed in detail. Case discussed with TRANSPORT OPERATIONS INSPECTOR. Agree with above plan. KATHY NAVARRO APRN Sep 22, 2019 09:10 DEEPAK CORDERO MD Sep 22, 2019 21:36
--- NOTE | 2019-09-22 09:45 | PN ---
DATE: 09/22/2019 SUBJECTIVE: The patient continues to be intubated, mechanically ventilated. He is on hemodialysis, on Levophed. He continues to be unresponsive. He blinks his eyes when stimulated, but otherwise, no other responses elicited. PHYSICAL EXAMINATION: GENERAL: When I examined him, he looked pale, extremely jaundiced, not cyanosed. No lymphadenopathy, no thyromegaly. No jugular venous distention, but generalized anasarca. VITAL SIGNS: Heart rate was 124, seemed to be irregularly irregular; blood pressure was 95/58; temperature was 99; respiratory rate was 25; and oxygen saturation was 100% on FiO2 of 40%. HEAD, EYES, EARS, NOSE AND THROAT: Showed normocephalic, atraumatic. He has orotracheal and orogastric tube in place. NECK: Supple. HEART: Irregular first heart sound. Normal second heart sounds. No gallop, rub or murmur. CHEST: Clear to auscultation. No crepitation or rhonchi. ABDOMEN: Distended, soft, nontender. NEUROLOGICAL: He continues to be encephalopathic. He does blink and attempts to open his eyes when stimulated. His intake over the last 24 hours was 1063, no output was recorded. LABORATORY DATA: As of this morning, his serum sodium was 137, potassium 5.5, chloride 100, bicarbonate 20, anion gap of 17, BUN 72, creatinine 3.1, estimated GFR was 19 mL per minute, his glucose was 202. Calcium was 7.5. Total bilirubin was 26.1. AST, ALT, alkaline phosphatase are elevated, although they are trending down. His ammonia was only 10. Total protein was 4.6. Albumin was 1.9. His white cell count was 37,500, hemoglobin 8.9, hematocrit 27.6, MCV 75 and platelet count 134,000. His prothrombin time was 23, INR of 2.1, APTT was 36. ASSESSMENT: 1. Acute respiratory failure secondary to community-acquired pneumonia as well as respiratory distress. He continues to be intubated, mechanically ventilated maintaining his oxygen saturation of 97% on FiO2 of 40%. 2. Septic shock, requiring vasopressors and IV antibiotic. The patient is off all vasopressors except when he is on dialysis. 3. Acute kidney injury, likely due to acute tubular necrosis secondary to sepsis. He is now on scheduled hemodialysis. 4. Hepatic injury, extremely elevated bilirubin and liver enzymes, although ammonia was only 10. 5. Rheumatoid arthritis. 6. Possible interstitial lung disease and pulmonary fibrosis. 7. Atrial fibrillation with rapid ventricular response for which he was cardioverted initially. He is now back to atrial fibrillation with rapid ventricular response. 8. Thrombocytopenia, slightly improved. His most recent platelet count is up to 134,000. 9. High gastric residual, improving. He continues to be on tube feeding. 10. His leukocytosis is rising up again. 11. He has what seems to be an ischemic area at the tip of his tongue and also his left big toe. PLAN: To continue mechanical ventilation, wean as tolerated. The patient is off all sedation, so far he has not really responded. Meanwhile, we will continue with nutritional support via the orogastric tube. Continue with IV antibiotic as per Infectious Disease specialist. Continue with hemodialysis. His MRI showed no evidence of stroke; however, EEG showed positive cerebral activity. INGRIS FINCH MD DR: JOSIANE/jose JOB#: [id number] / [id number]
[2019-09-22] MEDS: MEROPENEM 500 MG in IV NORMAL SALINE 50ML 50 ML IV SCH ×2 (11:51→21:02)
[2019-09-22] MEDS: methylPREDNISolone SOD SUCC PF 40 MG/ML VIAL. IV SCH (12:01)
[2019-09-22] MEDS: MICAFUNGIN 100 MG in IV DEXTROSE 5% 100ML 100 ML IV SCH (12:31)
--- NOTE | 2019-09-22 12:34 | PDOC ---
PROGRESS NOTES Subjective Subjective SEEN IN FOLLOW UP OF ARF AND MUTI ORGAN FAILURE Objective Objective Vital Signs Date Time Temp Pulse Resp B/P (MAP) Pulse Ox O2 Delivery O2 Flow Rate FiO2 09/22/19 11:53 100 Ventilator 09/22/19 11:00 126 19 172/83 (112) 09/22/19 08:00 99.0 99.0 09/20/19 01:12 15.0 Intake and Output 09/22/19 07:00 Intake Total 1050 ml Output Total 360 ml Balance 690 ml IV Total 450 ml Tube Feeding 600 ml Output Urine Total 10 ml Gastric Drainage Total 300 ml Emesis 50 ml Physical Exam Abdomen: Normal bowel sounds, Soft, No tenderness, No hepatosplenomegaly, No masses Heart: Regular rate, Normal S1, Normal S2, No murmurs, Gallops Extremities: Other (DIFFUSE EDEMA) General: Other (UNRESPONSIVE) Lungs: Clear to auscultation, Normal air movement, Other (ON VENT) Neuro: Other (UNRESPONSIVE) Diagnosis RESPIRATORY DISEASE: Other (ARDS) RESPIRATORY FAILURE: Acute, Other (ARDS) RENAL FAILURE: Acute (Acute tubular necrosis) Plan Plan of Care HAD DIALYSIS AND TOLERATED POORLY. MINIMAL FLUID REMOVAL. FOR DIALYSIS TOMORROW. PROGNOSIS IS GRIM Comment Review of Relevant I have reviewed the following items dionicio (where applicable) has been applied. Labs Laboratory Tests Test 09/21/19 05:30 09/22/19 05:30 09/22/19 05:55 White Blood Count 32.9 x10^3/uL (4.0-11.0) 37.5 x10^3/uL (4.0-11.0) Red Blood Count 4.36 x10^6/uL (4.30-5.70) 3.67 x10^6/uL (4.30-5.70) Hemoglobin 10.3 g/dL (13.0-17.5) 8.9 g/dL (13.0-17.5) Hematocrit 32.6 % (39.0-53.0) 27.6 % (39.0-53.0) Mean Corpuscular Volume 75 fL (79-100) 75 fL (79-100) Mean Corpuscular Hemoglobin 24 pg (25-35) 24 pg (25-35) Mean Corpuscular Hemoglobin Concent 32 g/dL (31-37) 32 g/dL (31-37) Red Cell Distribution Width 20.2 % (11.5-14.5) 21.9 % (11.5-14.5) Platelet Count 133 x10^3/uL (140-400) 134 x10^3/uL (140-400) Prothrombin Time 18.9 SEC (11.7-14.0) 23.0 SEC (11.7-14.0) Prothromb Time International Ratio 1.6 (0.8-1.1) 2.1 (0.8-1.1) Activated Partial Thromboplast Time 34 SEC (24-38) 36 SEC (24-38) Sodium Level 138 mmol/L (136-145) 137 mmol/L (136-145) Potassium Level 5.7 mmol/L (3.5-5.1) 5.5 mmol/L (3.5-5.1) Chloride Level 104 mmol/L (98-107) 100 mmol/L (98-107) Carbon Dioxide Level 25 mmol/L (21-32) 20 mmol/L (21-32) Anion Gap 9 (6-14) 17 (6-14) Blood Urea Nitrogen 72 mg/dL (8-26) 72 mg/dL (8-26) Creatinine 2.4 mg/dL (0.7-1.3) 3.1 mg/dL (0.7-1.3) Estimated GFR (Cockcroft-Gault) 26.3 19.6 BUN/Creatinine Ratio 30 (6-20) 23 (6-20) Glucose Level 231 mg/dL (70-99) 202 mg/dL (70-99) Calcium Level 8.0 mg/dL (8.5-10.1) 7.5 mg/dL (8.5-10.1) Total Bilirubin 22.7 mg/dL (0.2-1.0) 26.1 mg/dL (0.2-1.0) Aspartate Amino Transf (AST/SGOT) 262 U/L (15-37) 239 U/L (15-37) Alanine Aminotransferase (ALT/SGPT) 336 U/L (16-63) 230 U/L (16-63) Alkaline Phosphatase 164 U/L (46-116) 147 U/L (46-116) Total Protein 5.1 g/dL (6.4-8.2) 4.6 g/dL (6.4-8.2) Albumin 1.7 g/dL (3.4-5.0) 1.9 g/dL (3.4-5.0) Albumin/Globulin Ratio 0.5 (1.0-1.7) 0.7 (1.0-1.7) Ammonia < 10 mcmol/L (11-34) Laboratory Tests Test 09/22/19 05:30 09/22/19 05:55 White Blood Count 37.5 x10^3/uL (4.0-11.0) Red Blood Count 3.67 x10^6/uL (4.30-5.70) Hemoglobin 8.9 g/dL (13.0-17.5) Hematocrit 27.6 % (39.0-53.0) Mean Corpuscular Volume 75 fL (79-100) Mean Corpuscular Hemoglobin 24 pg (25-35) Mean Corpuscular Hemoglobin Concent 32 g/dL (31-37) Red Cell Distribution Width 21.9 % (11.5-14.5) Platelet Count 134 x10^3/uL (140-400) Prothrombin Time 23.0 SEC (11.7-14.0) Prothromb Time International Ratio 2.1 (0.8-1.1) Activated Partial Thromboplast Time 36 SEC (24-38) Sodium Level 137 mmol/L (136-145) Potassium Level 5.5 mmol/L (3.5-5.1) Chloride Level 100 mmol/L (98-107) Carbon Dioxide Level 20 mmol/L (21-32) Anion Gap 17 (6-14) Blood Urea Nitrogen 72 mg/dL (8-26) Creatinine 3.1 mg/dL (0.7-1.3) Estimated GFR (Cockcroft-Gault) 19.6 BUN/Creatinine Ratio 23 (6-20) Glucose Level 202 mg/dL (70-99) Calcium Level 7.5 mg/dL (8.5-10.1) Total Bilirubin 26.1 mg/dL (0.2-1.0) Aspartate Amino Transf (AST/SGOT) 239 U/L (15-37) Alanine Aminotransferase (ALT/SGPT) 230 U/L (16-63) Alkaline Phosphatase 147 U/L (46-116) Total Protein 4.6 g/dL (6.4-8.2) Albumin 1.9 g/dL (3.4-5.0) Albumin/Globulin Ratio 0.7 (1.0-1.7) Ammonia < 10 mcmol/L (11-34) Microbiology 09/21/19 Blood Culture - Preliminary, Resulted NO GROWTH AFTER 1 DAY 09/13/19 - Final, Complete 09/13/19 - Final, Complete 09/13/19 - Final, Complete 09/13/19 Gram Stain Evaluation - Final, Complete 09/13/19 Sputum Culture - Final, Complete 09/13/19 Sputum Result 1 - Final, Complete Medications Current Medications Amiodarone HCl 450 mg/Dextrose 259 ml @ 17 mls/hr CONT PRN IV SEE I/O RECORD Last administered on 09/11/19at 02:33; Start 09/10/19 at 09:00 Diltiazem HCl 125 mg/Dextrose 125 ml @ 0 mls/hr CONT PRN IV SEE I/O RECORD Last administered on 09/11/19at 05:40; Start 09/10/19 at 06:30 Lactobacillus Rhamnosus (Culturelle) 1 cap BID PO Last administered on 09/11/19at 21:16; Start 09/10/19 at 09:00; Stop 09/12/19 at 09:15; Status DC Ceftriaxone Sodium (Rocephin) 1 gm Q24H IVP Last administered on 09/10/19at 12:55; Start 09/10/19 at 12:00; Stop 09/10/19 at 13:35; Status DC Azithromycin (Zithromax) 250 mg DAILY PO Last administered on 09/10/19at 08:38; Start 09/10/19 at 09:00; Stop 09/10/19 at 13:35; Status DC Dutasteride (Avodart) 0.5 mg DAILY PO Last administered on 09/21/19at 12:59; Start 09/10/19 at 09:00 Naproxen (Naprosyn) 500 mg PRN BID PRN PO MODERATE PAIN 4-6; Start 09/10/19 at 06:30; Stop 09/12/19 at 11:01; Status DC Albuterol Sulfate (Ventolin Neb Soln) 2.5 mg RTQID NEB Last administered on 09/22/19at 11:52; Start 09/10/19 at 08:00 Methylprednisolone Sodium Succinate (SOLU-Medrol 40MG VIAL) 40 mg Q8HRS IV Last administered on 09/16/19at 05:57; Start 09/10/19 at 08:00; Stop 09/16/19 at 10:46; Status DC Sodium Chloride (Normal Saline Flush) 10 ml QSHIFT PRN IV AFTER MEDS AND BLOOD DRAWS; Start 09/10/19 at 07:00 Influenza Virus Vaccine Quadrival (Afluria Quad 2019-20 (3yr Up) Syringe) 0.5 ml ONCE ONCE VAX IM ; Start 09/11/19 at 09:00; Stop 09/11/19 at 09:01; Status DC Bisacodyl (Dulcolax Supp) 10 mg PRN DAILY PRN RI CONSTIPATION Last administered on 09/10/19at 10:00; Start 09/10/19 at 10:00 Lorazepam (Ativan Inj) 0.5 mg 1X ONCE IVP Last administered on 09/10/19at 11:10; Start 09/10/19 at 11:15; Stop 09/10/19 at 11:16; Status DC Lorazepam (Ativan Inj) 0.5 mg 1X ONCE IVP Last administered on 09/10/19at 11:48; Start 09/10/19 at 11:45; Stop 09/10/19 at 11:47; Status DC Morphine Sulfate (Morphine Sulfate) 5 mg 1X ONCE IV Last administered on 09/10/19at 11:55; Start 09/10/19 at 12:00; Stop 09/10/19 at 12:01; Status DC Morphine Sulfate (Morphine Sulfate) 4 mg 1X ONCE IV Last administered on 09/10/19at 12:56; Start 09/10/19 at 13:00; Stop 09/10/19 at 13:01; Status DC Vancomycin HCl 1 gm/Sodium Chloride 250 ml @ 250 mls/hr Q12H IV ; Start 09/10/19 at 13:30; Status UNV Piperacillin Sod/ Tazobactam Sod 3.375 gm/Sodium Chloride 50 ml @ 100 mls/hr Q6HRS IV Last administered on 09/11/19at 05:39; Start 09/10/19 at 14:00; Stop 09/11/19 at 08:20; Status DC Vancomycin HCl 1.5 gm/Sodium Chloride 500 ml @ 250 mls/hr 1X ONCE IV Last administered on 09/10/19at 16:39; Start 09/10/19 at 14:00; Stop 09/10/19 at 15:59; Status DC Vancomycin HCl (Vanco Per Pharmacy) 1 each PRN DAILY PRN MC SEE COMMENTS Last administered on 09/10/19at 16:55; Start 09/10/19 at 14:00; Stop 09/11/19 at 07:59; Status DC Furosemide (Lasix) 40 mg DAILY IVP ; Start 09/11/19 at 09:00; Stop 09/10/19 at 15:41; Status DC Furosemide (Lasix) 20 mg 1X ONCE IVP ; Start 09/10/19 at 15:45; Stop 09/10/19 at 15:46; Status DC Furosemide (Lasix) 40 mg 1X ONCE IVP Last administered on 09/10/19at 16:38; Start 09/10/19 at 15:45; Stop 09/10/19 at 15:46; Status DC Vancomycin HCl 1 gm/Sodium Chloride 250 ml @ 250 mls/hr Q24H IV ; Start 09/11/19 at 16:30; Stop 09/11/19 at 07:59; Status DC Vancomycin HCl (Vancomycin Trough Level) 1 each 1X ONCE MC ; Start 09/12/19 at 16:00; Stop 09/11/19 at 08:01; Status DC Morphine Sulfate (Morphine Sulfate) 4 mg PRN Q2HR PRN IV PAIN, elevated respirations Last administered on 09/20/19at 00:40; Start 09/10/19 at 21:15 Succinylcholine Chloride (Anectine) 200 mg STK-MED ONCE .ROUTE ; Start 09/11/19 at 08:09; Stop 09/11/19 at 08:09; Status DC Propofol 100 ml @ As Directed STK-MED ONCE IV ; Start 09/11/19 at 08:09; Stop 09/11/19 at 08:09; Status DC Sodium Bicarbonate 100 meq/Dextrose 1,100 ml @ 75 mls/hr [id number] IV Last administered on 09/13/19at 06:03; Start 09/11/19 at 09:00; Stop 09/13/19 at 15:56; Status DC Piperacillin Sod/ Tazobactam Sod 3.375 gm/Sodium Chloride 50 ml @ 100 mls/hr Q8HRS IV Last administered on 09/15/19at 05:01; Start 09/11/19 at 14:00; Stop 09/15/19 at 08:00; Status DC Levofloxacin/ Dextrose 100 ml @ 100 mls/hr 1X ONCE IV Last administered on 09/11/19at 12:39; Start 09/11/19 at 08:30; Stop 09/11/19 at 09:29; Status DC Levofloxacin/ Dextrose 50 ml @ 50 mls/hr Q24H IV Last administered on 09/11/19at 12:27; Start 09/12/19 at 09:00; Stop 09/11/19 at 16:31; Status DC Fentanyl Citrate 30 ml @ 0 mls/hr CONT PRN IV SEE PROTOCOL Last administered on 09/18/19at 07:56; Start 09/11/19 at 10:15 Propofol 100 ml @ 0 mls/hr CONT PRN IV SEE PROTOCOL; Start 09/11/19 at 10:15; Stop 09/13/19 at 15:56; Status DC Midazolam HCl 100 ml @ 0 mls/hr CONT PRN IV SEE PROTOCOL Last administered on 09/17/19at 22:50; Start 09/11/19 at 10:15 Norepinephrine Bitartrate 250 ml @ 13.81 mls/ hr CONT PRN IV SEE I/O RECORD Last administered on 09/21/19at 10:16; Start 09/11/19 at 10:45 Sodium Bicarbonate (Sodium Bicarb Adult 8.4% Syr) 50 meq STK-MED ONCE .ROUTE ; Start 09/11/19 at 10:49; Stop 09/11/19 at 10:50; Status DC Succinylcholine Chloride (Anectine) 200 mg STK-MED ONCE .ROUTE ; Start 09/11/19 at 10:57; Stop 09/11/19 at 10:57; Status DC Sodium Bicarbonate (Sodium Bicarb Adult 8.4% Syr) 100 meq 1X ONCE IV Last administered on 09/11/19at 11:28; Start 09/11/19 at 11:15; Stop 09/11/19 at 11:16; Status DC Vasopressin 40 unit/Dextrose 102 ml @ 6 mls/hr CONT PRN IV SEE I/O RECORD Last administered on 09/16/19at 22:52; Start 09/11/19 at 11:30 Sodium Chloride 1,000 ml @ 1,770 mls/hr Q34M IV Last administered on 09/11/19at 12:28; Start 09/11/19 at 11:45; Stop 09/11/19 at 12:45; Status DC Lidocaine HCl (Buffered Lidocaine 1%) 3 ml STK-MED ONCE .ROUTE ; Start 09/11/19 at 15:23; Stop 09/11/19 at 15:23; Status DC Epinephrine HCl 4 mg/Sodium Chloride 254 ml @ 28.061 mls/ hr CONT PRN IV SEE I/O RECORD; Start 09/11/19 at 15:45; Stop 09/13/19 at 15:56; Status DC Levofloxacin/ Dextrose 100 ml @ 100 mls/hr Q24H IV Last administered on 09/18/19at 13:07; Start 09/12/19 at 09:00; Stop 09/19/19 at 08:00; Status DC Lidocaine HCl (Buffered Lidocaine 1%) 3 ml 1X ONCE INJ Last administered on 09/11/19at 17:14; Start 09/11/19 at 17:15; Stop 09/11/19 at 17:16; Status DC Sodium Chloride 500 ml @ 500 mls/hr 1X ONCE IV Last administered on 09/11/19at 21:21; Start 09/11/19 at 21:15; Stop 09/11/19 at 22:14; Status DC Calcium Chloride 12.5 meq/ Bicarbonate Dialysis Soln w/ out KCl 5,008.9286 ml @ 1,000 mls/hr Q5H1M IV ; Start 09/12/19 at 09:00; Stop 09/12/19 at 12:18; Status DC Calcium Chloride 12.5 meq/ Bicarbonate Dialysis Soln w/ out KCl 5,008.9286 ml @ 1,000 mls/hr Q5H1M IV ; Start 09/12/19 at 09:00; Stop 09/12/19 at 10:00; Status DC Calcium Chloride 12.5 meq/ Bicarbonate Dialysis Soln w/ out KCl 5,008.9286 ml @ 1,000 mls/hr Q5H1M IV ; Start 09/12/19 at 09:00; Stop 09/12/19 at 10:02; Status DC Lidocaine HCl (Lta Kit) 4 ml STK-MED ONCE TP ; Start 09/10/19 at 16:00; Stop 09/12/19 at 09:29; Status DC Calcium Chloride 12.5 meq/ Bicarbonate Dialysis Soln w/ out KCl 5,008.9286 ml @ 1,500 mls/hr Q3H21M IV ; Start 09/12/19 at 12:00; Stop 09/12/19 at 11:28; Status DC Calcium Chloride 12.5 meq/ Bicarbonate Dialysis Soln w/ out KCl 5,008.9286 ml @ 1,500 mls/hr Q3H21M IV ; Start 09/12/19 at 12:00; Stop 09/12/19 at 11:30; Status DC Pantoprazole Sodium (PROTONIX VIAL for IV PUSH) 40 mg DAILYAC IVP Last administered on 09/22/19at 07:34; Start 09/12/19 at 12:00 Calcium Chloride 12.5 meq/ Bicarbonate Dialysis Soln w/ out KCl 5,008.9286 ml @ 1,000 mls/hr Q5H1M IV ; Start 09/12/19 at 13:00; Stop 09/12/19 at 12:18; Status DC Calcium Chloride 12.5 meq/ Bicarbonate Dialysis Soln w/ out KCl 5,008.9286 ml @ 1,000 mls/hr Q5H1M IV ; Start 09/12/19 at 13:00; Stop 09/12/19 at 12:18; Status DC Potassium Chloride 10 meq/ Bicarbonate Dialysis Soln w/ out KCl 5,005 ml @ 1,000 mls/hr Q5H1M IV Last administered on 09/13/19at 06:04; Start 09/12/19 at 13:00; Stop 09/13/19 at 08:35; Status DC Potassium Chloride 10 meq/ Bicarbonate Dialysis Soln w/ out KCl 5,005 ml @ 1,000 mls/hr Q5H1M IV Last administered on 09/13/19at 06:04; Start 09/12/19 at 12:30; Stop 09/13/19 at 08:37; Status DC Potassium Chloride 10 meq/ Bicarbonate Dialysis Soln w/ out KCl 5,005 ml @ 1,000 mls/hr Q5H1M IV Last administered on 09/13/19at 06:05; Start 09/12/19 at 13:00; Stop 09/13/19 at 08:36; Status DC Fentanyl Citrate (Fentanyl 600 Mcg/30 ml RESTAURANT SUPERVISOR) 600 mcg STK-MED ONCE IV ; Start 09/11/19 at 11:28; Stop 09/12/19 at 15:46; Status DC Phytonadione 1 mg/ Dextrose 50.1 ml @ 102 mls/hr 1X ONCE IV Last administered on 09/12/19at 17:07; Start 09/12/19 at 17:00; Stop 09/12/19 at 17:29; Status DC Daptomycin 320 mg/ Sodium Chloride 50 ml @ 100 mls/hr Q24H IV Last administered on 09/19/19at 08:12; Start 09/13/19 at 08:00; Stop 09/20/19 at 07:33; Status DC Potassium Chloride 20 meq/ Bicarbonate Dialysis Soln w/ out KCl 5,010 ml @ 1,000 mls/hr Q5H1M IV Last administered on 09/17/19at 02:18; Start 09/13/19 at 09:00; Stop 09/17/19 at 07:37; Status DC Potassium Chloride 20 meq/ Bicarbonate Dialysis Soln w/ out KCl 5,010 ml @ 1,000 mls/hr Q5H1M IV Last administered on 09/17/19at 02:19; Start 09/13/19 at 08:45; Stop 09/17/19 at 07:38; Status DC Potassium Chloride 20 meq/ Bicarbonate Dialysis Soln w/ out KCl 5,010 ml @ 1,000 mls/hr Q5H1M IV Last administered on 09/15/19at 08:42; Start 09/13/19 at 08:45; Stop 09/15/19 at 13:48; Status DC Piperacillin Sod/ Tazobactam Sod 3.375 gm/Sodium Chloride 50 ml @ 100 mls/hr 1X ONCE IV Last administered on 09/13/19at 22:27; Start 09/13/19 at 22:00; Stop 09/13/19 at 22:29; Status DC Phytonadione (Vitamin K Ampule) 10 mg 1X ONCE SQ Last administered on 09/14/19at 12:26; Start 09/14/19 at 12:30; Stop 09/14/19 at 12:31; Status DC Meropenem 500 mg/ Sodium Chloride 50 ml @ 100 mls/hr DAILY IV Last administered on 09/15/19at 08:52; Start 09/15/19 at 09:00; Stop 09/15/19 at 11:41; Status DC Meropenem 500 mg/ Sodium Chloride 50 ml @ 100 mls/hr Q12H IV Last administered on 09/22/19at 11:51; Start 09/15/19 at 21:00 Potassium Chloride 20 meq/ Bicarbonate Dialysis Soln w/ out KCl 5,010 ml @ 1,000 mls/hr Q5H1M IV Last administered on 09/17/19at 02:18; Start 09/15/19 at 13:45; Stop 09/17/19 at 07:39; Status DC Fluconazole/ Sodium Chloride 50 ml @ 100 mls/hr Q24H IV ; Start 09/16/19 at 08:15; Stop 09/16/19 at 08:14; Status DC Phytonadione (Vitamin K Ampule) 10 mg 1X ONCE SQ Last administered on 09/16/19at 09:40; Start 09/16/19 at 09:00; Stop 09/16/19 at 09:01; Status DC Phytonadione (Vitamin K Ampule) 10 mg 1X ONCE SQ ; Start 09/16/19 at 08:45; Stop 09/16/19 at 08:46; Status UNV Methylprednisolone Sodium Succinate (SOLU-Medrol 40MG VIAL) 40 mg Q12HR IV Last administered on 09/21/19at 21:22; Start 09/16/19 at 21:00; Stop 09/22/19 at 09:26; Status DC Potassium Chloride 15 meq/ Bicarbonate Dialysis Soln w/ out KCl 5,007.5 ml @ 1,000 mls/ hr Q5H1M IV Last administered on 09/17/19at 08:16; Start 09/17/19 at 07:45; Stop 09/17/19 at 12:00; Status DC Potassium Chloride 15 meq/ Bicarbonate Dialysis Soln w/ out KCl 5,007.5 ml @ 1,000 mls/ hr Q5H1M IV Last administered on 09/17/19at 08:16; Start 09/17/19 at 07:45; Stop 09/17/19 at 12:00; Status DC Potassium Chloride 15 meq/ Bicarbonate Dialysis Soln w/ out KCl 5,007.5 ml @ 1,000 mls/ hr Q5H1M IV Last administered on 09/17/19at 08:16; Start 09/17/19 at 07:45; Stop 09/17/19 at 12:00; Status DC Calcium Chloride 12.5 meq/ Potassium Chloride 5 meq/ Bicarbonate Dialysis Soln w/ out KCl 5,011.4286 ml @ 1,000 mls/hr Q5H1M IV Last administered on 09/17/19at 13:05; Start 09/17/19 at 12:00; Stop 09/17/19 at 18:32; Status DC Calcium Chloride 12.5 meq/ Potassium Chloride 5 meq/ Bicarbonate Dialysis Soln w/ out KCl 5,011.4286 ml @ 1,000 mls/hr Q5H1M IV Last administered on 09/17/19at 13:06; Start 09/17/19 at 12:00; Stop 09/17/19 at 18:33; Status DC Calcium Chloride 12.5 meq/ Potassium Chloride 5 meq/ Bicarbonate Dialysis Soln w/ out KCl 5,011.4286 ml @ 1,000 mls/hr Q5H1M IV Last administered on 09/17/19at 13:05; Start 09/17/19 at 12:00; Stop 09/17/19 at 18:33; Status DC Potassium Chloride 15 meq/ Bicarbonate Dialysis Soln w/ out KCl 5,007.5 ml @ 1,000 mls/ hr Q5H1M IV Last administered on 09/20/19at 09:27; Start 09/17/19 at 16:00; Stop 09/21/19 at 09:52; Status DC Potassium Chloride 15 meq/ Bicarbonate Dialysis Soln w/ out KCl 5,007.5 ml @ 1,000 mls/ hr Q5H1M IV Last administered on 09/20/19at 09:28; Start 09/17/19 at 16:00; Stop 09/21/19 at 09:52; Status DC Potassium Chloride 15 meq/ Bicarbonate Dialysis Soln w/ out KCl 5,007.5 ml @ 1,000 mls/ hr Q5H1M IV Last administered on 09/20/19at 09:27; Start 09/17/19 at 16:00; Stop 09/21/19 at 09:52; Status DC Micafungin Sodium 100 mg/Dextrose 100 ml @ 100 mls/hr Q24H IV Last administered on 09/21/19at 12:58; Start 09/21/19 at 09:00 Doxycycline Hyclate 100 mg/ Dextrose 100 ml @ 50 mls/hr Q12HR IV Last administered on 09/22/19at 12:26; Start 09/21/19 at 09:00 Sodium Chloride 1,000 ml @ 1,000 mls/hr Q1H PRN IV hypotension; Start 09/21/19 at 08:45; Stop 09/21/19 at 14:44; Status DC Albumin Human 200 ml @ 200 mls/hr 1X PRN PRN IV Hypotension Last administered on 09/21/19at 10:12; Start 09/21/19 at 08:45; Stop 09/21/19 at 14:44; Status DC Sodium Chloride (Normal Saline Flush) 10 ml 1X PRN PRN IV AP catheter pack; Start 09/21/19 at 08:45; Stop 09/22/19 at 08:44; Status DC Sodium Chloride (Normal Saline Flush) 10 ml 1X PRN PRN IV ASSISTANT PROFESSOR OF ENGLISH catheter pack; Start 09/21/19 at 08:45; Stop 09/22/19 at 08:44; Status DC Sodium Chloride 1,000 ml @ 400 mls/hr Q2H30M PRN IV PATENCY; Start 09/21/19 at 08:45; Stop 09/21/19 at 20:44; Status DC Info (PHARMACY MONITORING -- do not chart) 1 each PRN DAILY PRN MC SEE COMMENTS; Start 09/21/19 at 08:45 Metoclopramide HCl (Reglan Vial) 5 mg Q6HRS IVP Last administered on 09/22/19at 05:37; Start 09/21/19 at 18:00 Nicardipine HCl 50 mg/Sodium Chloride 250 ml @ 25 mls/hr CONT PRN IV SEE I/O RECORD Last administered on 09/21/19at 21:49; Start 09/21/19 at 21:45 Sodium Chloride 1,000 ml @ 1,000 mls/hr Q1H PRN IV hypotension; Start 09/22/19 at 07:37; Stop 09/22/19 at 13:36 Albumin Human 200 ml @ 200 mls/hr 1X PRN PRN IV Hypotension Last administered on 09/22/19at 09:12; Start 09/22/19 at 07:45; Stop 09/22/19 at 13:44 Sodium Chloride (Normal Saline Flush) 10 ml 1X PRN PRN IV AP catheter pack; Start 09/22/19 at 07:45; Stop 09/23/19 at 07:44 Sodium Chloride (Normal Saline Flush) 10 ml 1X PRN PRN IV ASSISTANT PROFESSOR OF ENGLISH catheter pack; Start 09/22/19 at 07:45; Stop 09/23/19 at 07:44 Sodium Chloride 1,000 ml @ 400 mls/hr Q2H30M PRN IV PATENCY; Start 09/22/19 at 07:37; Stop 09/22/19 at 19:36 Info (PHARMACY MONITORING -- do not chart) 1 each PRN DAILY PRN MC SEE COMMENTS; Start 09/22/19 at 07:45 Methylprednisolone Sodium Succinate (SOLU-Medrol 40MG VIAL) 40 mg DAILY IV Last administered on 09/22/19at 12:01; Start 09/22/19 at 09:30 Active Scripts Active Reported Naproxen 500 Mg Tablet 1 Tab PO PRN BID PRN 30 Days Avodart (Dutasteride) 0.5 Mg Capsule 1 Cap PO DAILY Vitals/I & O Vital Sign - Last 24 Hours 09/21/19 09/21/19 09/21/19 09/21/19 13:00 13:00 14:00 15:00 Pulse 120 114 116 Resp 20 20 20 B/P (MAP) 140/80 (100) 148/97 (114) 158/78 (104) Pulse Ox 100 98 98 98 O2 Delivery Ventilator Ventilator Ventilator Ventilator 09/21/19 09/21/19 09/21/19 09/21/19 15:19 16:00 16:00 17:00 Temp 98.8 98.8 Pulse 120 112 Resp 20 20 B/P (MAP) 136/85 (102) 155/68 (97) Pulse Ox 98 99 99 O2 Delivery Ventilator Mechanical Ventilator Ventilator Ventilator 09/21/19 09/21/19 09/21/19 09/21/19 17:36 18:00 19:00 19:57 Pulse 111 119 Resp 20 20 B/P (MAP) 165/71 (102) 161/59 (93) Pulse Ox 99 100 100 98 O2 Delivery Ventilator Ventilator Ventilator Ventilator 09/21/19 09/21/19 09/21/19 09/21/19 20:00 20:00 21:00 21:30 Temp 98.2 98.2 Pulse 114 132 Resp 20 20 B/P (MAP) 171/82 (111) 179/99 (125) 211/83 (125) Pulse Ox 100 100 O2 Delivery Mechanical Ventilator Ventilator Ventilator 09/21/19 09/21/19 09/21/19 09/22/19 22:00 23:00 23:10 00:00 Pulse 126 110 Resp 20 20 B/P (MAP) 159/73 (101) 118/60 (79) Pulse Ox 100 100 98 O2 Delivery Ventilator Ventilator Ventilator Mechanical Ventilator 09/22/19 09/22/19 09/22/19 09/22/19 00:00 01:00 01:45 02:00 Temp 98.5 98.5 Pulse 115 120 123 Resp 20 20 20 B/P (MAP) 102/60 (74) 110/65 (80) 102/58 (73) Pulse Ox 100 100 99 100 O2 Delivery Ventilator Ventilator Ventilator Ventilator 09/22/19 09/22/19 09/22/19 09/22/19 03:00 03:38 04:00 04:00 Temp 99.0 99.0 Pulse 104 111 Resp 20 20 B/P (MAP) 86/63 (71) 95/71 (79) Pulse Ox 100 99 100 O2 Delivery Ventilator Ventilator Mechanical Ventilator Ventilator 09/22/19 09/22/19 09/22/19 09/22/19 05:00 05:39 06:00 07:00 Pulse 125 122 125 Resp 20 20 26 B/P (MAP) 85/57 (66) 91/64 (73) 84/58 (67) Pulse Ox 100 99 100 100 O2 Delivery Ventilator Ventilator Ventilator Ventilator 09/22/19 09/22/19 09/22/19 09/22/19 07:02 08:00 08:00 09:00 Temp 99.0 99.0 Pulse 124 133 Resp 25 23 B/P (MAP) 95/58 (70) 130/65 (86) Pulse Ox 99 100 100 O2 Delivery Ventilator Ventilator Mechanical Ventilator Ventilator 09/22/19 09/22/19 09/22/19 09/22/19 09:06 10:00 11:00 11:53 Pulse 133 126 Resp 25 19 B/P (MAP) 171/95 (120) 172/83 (112) Pulse Ox 99 100 100 100 O2 Delivery Ventilator Ventilator Ventilator Ventilator Intake and Output 09/21/19 09/21/19 09/22/19 15:00 23:00 07:00 Intake Total 650 ml 200 ml 200 ml Output Total 5 ml 300 ml 55 ml Balance 645 ml -100 ml 145 ml HILDA CRISTOBAL MD Sep 22, 2019 12:34
[2019-09-22 18:13] LABS: BILIRUBIN,URINE MODERATE (NEG); CLARITY,URINE CLOUDY; NITRITE,URINE NEGATIVE (NEG); PH,URINE 6.5; PROTEIN,URINE >=300 mg/dL (NEG-TRACE); UROBILINOGEN,URINE 0.2 mg/dL (0.2 mg/dL)
[2019-09-22] MEDS ORDERED: TPN PER PHARMACY MC PRN (18:15)
[2019-09-22 18:20] LABS: COLOR,URINE AMBER
[2019-09-22 18:21] LABS: BACTERIA,URINE 0 /HPF (0-FEW); RBC,URINE TNTC /HPF (0-2); SQUAMOUS EPITHELIAL CELL,UR FEW /LPF; WBC,URINE OCC /HPF (0-4)
[2019-09-23] VITALS (14 sets, daily range): BP systolic 42–160; BP diastolic 34–118
[2019-09-23] MEDS: METOCLOPRAMIDE HCL 10 MG/2 ML VIAL. IVP SCH ×2 (00:10→05:53)
[2019-09-23] MEDS: NOREPINEPHRIN 8MG/250ML PREMIX 250 ML IV PRN ×2 (00:11→08:32)
[2019-09-23] MEDS: MORPHINE SULFATE 4 MG/ML VIAL. IV PRN (04:00)
[2019-09-23 06:19] LABS: HEMATOCRIT 25.8 % (39.0-53.0); HEMOGLOBIN 8.1 g/dL (13.0-17.5); RED BLOOD COUNT 3.32 x10^6/uL (4.30-5.70); WHITE BLOOD COUNT 39.3 x10^3/uL (4.0-11.0)
--- NOTE | 2019-09-23 06:22 | PDOC ---
PULMONARY PROGRESS NOTES Subjective INTUBATED 09/11 on AC MODE OFF SEDATION SINCE 09/18, no response had HD yesterday small ett secretion on levo in afib w rvr Vitals Vital Signs Date Time Temp Pulse Resp B/P (MAP) Pulse Ox O2 Delivery O2 Flow Rate FiO2 09/23/19 06:00 128 28 71/50 (57) 100 Ventilator 09/23/19 04:00 98.7 98.7 Comments ros as mentioned as above discussed w rn, other sys otherwise neg on vent, doesnt follow my commands HEENT: Other (nc at perrl nose clear orally intubated tongue lesion neck no lad no thyromegaly) Lungs: Crackles Cardiovascular: Other (irregular tachy) Abdomen: Soft, Non-tender, Other (no mass) Extremities: Other (EDEMA) Skin: Warm Labs Laboratory Tests Test 09/22/19 05:30 09/22/19 05:55 09/22/19 18:03 White Blood Count 37.5 x10^3/uL (4.0-11.0) Red Blood Count 3.67 x10^6/uL (4.30-5.70) Hemoglobin 8.9 g/dL (13.0-17.5) Hematocrit 27.6 % (39.0-53.0) Mean Corpuscular Volume 75 fL (79-100) Mean Corpuscular Hemoglobin 24 pg (25-35) Mean Corpuscular Hemoglobin Concent 32 g/dL (31-37) Red Cell Distribution Width 21.9 % (11.5-14.5) Platelet Count 134 x10^3/uL (140-400) Prothrombin Time 23.0 SEC (11.7-14.0) Prothromb Time International Ratio 2.1 (0.8-1.1) Activated Partial Thromboplast Time 36 SEC (24-38) Sodium Level 137 mmol/L (136-145) Potassium Level 5.5 mmol/L (3.5-5.1) Chloride Level 100 mmol/L (98-107) Carbon Dioxide Level 20 mmol/L (21-32) Anion Gap 17 (6-14) Blood Urea Nitrogen 72 mg/dL (8-26) Creatinine 3.1 mg/dL (0.7-1.3) Estimated GFR (Cockcroft-Gault) 19.6 BUN/Creatinine Ratio 23 (6-20) Glucose Level 202 mg/dL (70-99) Calcium Level 7.5 mg/dL (8.5-10.1) Total Bilirubin 26.1 mg/dL (0.2-1.0) Aspartate Amino Transf (AST/SGOT) 239 U/L (15-37) Alanine Aminotransferase (ALT/SGPT) 230 U/L (16-63) Alkaline Phosphatase 147 U/L (46-116) Total Protein 4.6 g/dL (6.4-8.2) Albumin 1.9 g/dL (3.4-5.0) Albumin/Globulin Ratio 0.7 (1.0-1.7) Ammonia < 10 mcmol/L (11-34) Urine Collection Type Unknown Urine Color Katerina Urine Clarity Cloudy Urine pH 6.5 Urine Specific [place] 1.020 Urine Protein >=300 mg/dL (NEG-TRACE) Urine Glucose (UA) 250 mg/dL (NEG) Urine Ketones (Stick) Negative mg/dL (NEG) Urine Blood Large (NEG) Urine Nitrite Negative (NEG) Urine Bilirubin Moderate (NEG) Urine Urobilinogen Dipstick 0.2 mg/dL (0.2 mg/dL) Urine Leukocyte Esterase Small (NEG) Urine RBC Tntc /HPF (0-2) Urine WBC Occ /HPF (0-4) Urine Squamous Epithelial Cells Few /LPF Urine Bacteria 0 /HPF (0-FEW) Laboratory Tests Test 09/22/19 18:03 Urine Collection Type Unknown Urine Color Katerina Urine Clarity Cloudy Urine pH 6.5 Urine Specific [place] 1.020 Urine Protein >=300 mg/dL (NEG-TRACE) Urine Glucose (UA) 250 mg/dL (NEG) Urine Ketones (Stick) Negative mg/dL (NEG) Urine Blood Large (NEG) Urine Nitrite Negative (NEG) Urine Bilirubin Moderate (NEG) Urine Urobilinogen Dipstick 0.2 mg/dL (0.2 mg/dL) Urine Leukocyte Esterase Small (NEG) Urine RBC Tntc /HPF (0-2) Urine WBC Occ /HPF (0-4) Urine Squamous Epithelial Cells Few /LPF Urine Bacteria 0 /HPF (0-FEW) Medications Active Scripts Medications Dose Route/Sig Max Daily Dose Days Date Category Naproxen 500 Mg Tablet 1 Tab PO PRN BID PRN 30 09/10/19 Reported Avodart (Dutasteride) 0.5 Mg Capsule 1 Cap PO DAILY 09/10/19 Reported Comments cxr b lat infilt ett too high Impression . IMPRESSION: 1. Acute hypoxemic respiratory failure/ARDS 2. SEPTIC SHOCK 3. Abnormal CT chest revealing bilateral pulmonary infiltrates. 4. Pneumonia, suspect gram-negative, gram-positive. 5. Possible acute pulmonary edema. 6. Possible interstitial lung disease/pulmonary fibrosis. 7. History of rheumatoid arthritis. 8. Atrial fibrillation with rapid ventricular response. 9. ACUTE MET ACIDOSIS, 10. ACUTE RENAL FAILURE 11. MET/TOXIC encephalopathy BRAIN MRI Impression: 1. No acute intracranial abnormality. 2. Moderate global brain parenchymal volume loss including prominent cerebellar volume loss. 3. Punctate gradient hypointensity within the left frontal lobe, favor prior microhemorrhage, less likely tiny cavernous malformation. Comparison with prior imaging studies would be of benefit. 4. Paranasal sinus fluid, posterior nasopharyngeal fluid and bilateral bradley-mastoid effusion, likely related to intubation. US IMPRESSION: 1. Cholelithiasis with mild gallbladder wall thickening. No pericholecystic fluid. HIDA scan can further evaluate gallbladder function if indicated. 2. Increased hepatic echotexture, may indicate steatosis. Plan . cont vent support, setting reviewed, ett was advanced. will do abg and cxr, will review afib w rvr per cardiology pressores to keep map >65 advanced ett elevate hob LABS REVIEWED LIVER CHEMISTRIES improving slowly MRI BRAIN REPORT NOTED cont HOLDing SEDATION AND TRIAL ONCE AWAKE, may need trach TUBE FEEDING HD per nephro, ? crrt ANTIBX PER ID DVT AND GI PROPH cont solumedrol daily tongue lesion needs to be evaluated,,,per primary prognosis poor D/W RT/RN BRAULIO SALES MD Sep 23, 2019 06:22
[2019-09-23] MEDS: VASOPRESSIN 40 UNIT in IV DEXTROSE 5% 100ML 100 ML IV PRN (06:31)
[2019-09-23 06:45] LABS: ALBUMIN 2.3 g/dL (3.4-5.0); ALBUMIN/GLOBULIN RATIO 1.1 (1.0-1.7); CALCIUM 7.6 mg/dL (8.5-10.1); CREATININE 3.4 mg/dL (0.7-1.3); GFR 17.6; TOTAL BILIRUBIN 30.7 mg/dL (0.2-1.0); TOTAL PROTEIN 4.4 g/dL (6.4-8.2)
[2019-09-23 06:47] LABS: POTASSIUM 6.2 mmol/L (3.5-5.1)
--- NOTE | 2019-09-23 06:48 | RAD ---
PORTABLE CHEST 1V Clinical History: Technique: AP view of the chest was obtained at 09/23/2019 6:10 AM. Comparison: September 22, 2019. Findings: There is reticular opacities throughout the lungs. There is mild elevation right hemidiaphragm. The pulmonary vessels appear normal. There is an endotracheal tube with its tip above the clavicles approximately 9 cm of the lang. There is a right jugular line and right jugular dual-lumen catheter with the tips in the low SVC. There is an NG tube with its tip in the mid stomach. IMPRESSION: 1. The endotracheal tube has its tip at thoracic inlet. It may be helpful to advance approximately 3 cm. 2. Reticular opacities throughout the lungs unchanged. Electronically signed by: Andrews Laguerre III, MD (09/23/2019 6:45 AM) [facility]
--- NOTE | 2019-09-23 06:55 | NUR ---
critical potassium at this time, 6.2. Coty Lopez RN with day shift to follow up.
[2019-09-23] MEDS: ALBUTEROL SULFATE 2.5 MG/3 ML NEBU. NEB SCH ×2 (07:09→11:16)
[2019-09-23] MEDS ORDERED: fentaNYL PF VIAL 100 MCG/2 ML VIAL ONE (07:27)
[2019-09-23] MEDS ORDERED: fentaNYL PF VIAL 100 MCG/2 ML VIAL IVP PRN (07:30)
[2019-09-23] MEDS: PANTOPRAZOLE IV PUSH 40 MG VIAL. IVP SCH (07:34)
--- NOTE | 2019-09-23 07:52 | PDOC ---
Infectious Disease Note Subjective Subjective Remains unresponsive and orally intubated, FiO2 40% Hypotensive requiring vasopresser support Fever 100.0 ROS ROS unobtainable Vital Sign Vital Signs Vital Signs Date Time Temp Pulse Resp B/P (MAP) Pulse Ox O2 Delivery O2 Flow Rate FiO2 09/23/19 07:09 100 Ventilator 09/23/19 06:00 128 28 71/50 (57) 09/23/19 04:00 98.7 98.7 Physical Exam PHYSICAL EXAM GENERAL: orally intubated on vent HEENT: icteric, OGT, ETT +, tongue necrotic NECK: RIJ & HDC clean LUNGS: Clear anteriorly HEART: S1, S2 irregular ABDOMEN: Soft, mildly distended, BS + : Fisher EXTREMITIES: + generalized edema, SKIN: No rash NEUROLOGIC: unresponsive Labs Lab Laboratory Tests Test 09/22/19 18:03 09/23/19 06:00 Urine Collection Type Unknown Urine Color Katerina Urine Clarity Cloudy Urine pH 6.5 Urine Specific [place] 1.020 Urine Protein >=300 mg/dL (NEG-TRACE) Urine Glucose (UA) 250 mg/dL (NEG) Urine Ketones (Stick) Negative mg/dL (NEG) Urine Blood Large (NEG) Urine Nitrite Negative (NEG) Urine Bilirubin Moderate (NEG) Urine Urobilinogen Dipstick 0.2 mg/dL (0.2 mg/dL) Urine Leukocyte Esterase Small (NEG) Urine RBC Tntc /HPF (0-2) Urine WBC Occ /HPF (0-4) Urine Squamous Epithelial Cells Few /LPF Urine Bacteria 0 /HPF (0-FEW) White Blood Count 39.3 x10^3/uL (4.0-11.0) Red Blood Count 3.32 x10^6/uL (4.30-5.70) Hemoglobin 8.1 g/dL (13.0-17.5) Hematocrit 25.8 % (39.0-53.0) Mean Corpuscular Volume 78 fL (79-100) Mean Corpuscular Hemoglobin 24 pg (25-35) Mean Corpuscular Hemoglobin Concent 31 g/dL (31-37) Red Cell Distribution Width 23.0 % (11.5-14.5) Platelet Count 103 x10^3/uL (140-400) Sodium Level 140 mmol/L (136-145) Potassium Level 6.2 mmol/L (3.5-5.1) Chloride Level 100 mmol/L (98-107) Carbon Dioxide Level 14 mmol/L (21-32) Anion Gap 26 (6-14) Blood Urea Nitrogen 71 mg/dL (8-26) Creatinine 3.4 mg/dL (0.7-1.3) Estimated GFR (Cockcroft-Gault) 17.6 BUN/Creatinine Ratio 21 (6-20) Glucose Level 123 mg/dL (70-99) Calcium Level 7.6 mg/dL (8.5-10.1) Total Bilirubin 30.7 mg/dL (0.2-1.0) Aspartate Amino Transf (AST/SGOT) 343 U/L (15-37) Alanine Aminotransferase (ALT/SGPT) 177 U/L (16-63) Alkaline Phosphatase 119 U/L (46-116) Total Protein 4.4 g/dL (6.4-8.2) Albumin 2.3 g/dL (3.4-5.0) Albumin/Globulin Ratio 1.1 (1.0-1.7) CXR 1. The endotracheal tube has its tip at thoracic inlet. It may be helpful to advance approximately 3 cm. 2. Reticular opacities throughout the lungs unchanged. Micro 09/21. BLOOD CULTURE Preliminary NO GROWTH AFTER 1 DAY SPUTUM CULT RES 1 Final Yeast isolated. Objective Assessment Multiorgan failure, vasopressor support Respiratory failure. Pulmonary infiltrates with ARDS - sputum c/s neg, yeast likely colonization, RVP neg, legionella neg, coccidiodes neg, cmv neg, Leukocytosis. increasing on steroids Acute kidney injury, multifactorial from hypotension on CRRT, Hepatic failure ,hyperbilirubinemia, multifactorial including likely shock liver - U/S Cholelithiasis with mild gallbladder wall thickening. No pericholecyst ic fluid. hepatic steatosis.worsening bilirubin, GI following DIC History of rheumatoid arthritis, had been on naproxen. A fib with RVR and Circulatory failure. Thrombocytopenia improving GI Bleed stable Encephalopathy MRI brain noted, ABbn MRI Punctate gradient hypointensity within the left frontal lobe, favor prior microhemorrhage, less likely tiny cavernous malformation. Paranasal sinus fluid, posterior nasopharyngeal fluid and bilateral bradley-mastoid effusion, Black tongue lesions ? etiology Plan Plan of Care merrem ( 09/15); Doxy and micafungin off Daptomycin 09/20,was on zyvox prior to that off Zosyn off Levaquin 09/19 Fungal BC galactomannan cont supportive care f/u c/s and labs oral care Pt needs ENT OR Oral maxillo surgeon to evaluate tongue lesion Condition critical Prognosis very poor D/W Nursing staff D/w Dr. Banks Recommend CT chest/abd/pelvis Check lactic acid, C. diff PCR Patient seen and examined. Chart reviewed in detail. Case discussed with INSIDE SALES MANAGER> Agree with above plan. KATHY NAVARRO APRN Sep 23, 2019 07:52 DEEPAK BANKS MD Sep 23, 2019 19:22
[2019-09-23] MEDS: MEROPENEM 500 MG in IV NORMAL SALINE 50ML 50 ML IV SCH (08:01)
--- NOTE | 2019-09-23 08:06 | RAD ---
EXAM: CHEST ONE VIEW. HISTORY: Respiratory failure, elevated. COMPARISON: 09/23/19 0610. FINDINGS: A frontal view of the chest is obtained. An endotracheal tube has its tip 6.5 cm above the lang. A nasogastric tube has its tip below the inferior margin of the view. Right internal jugular hemodialysis and central venous catheters have their tips in the right atrium. Interstitial opacities in the right greater than left bases indicate interstitial lung disease. There is mild loss on the right. There is no pneumothorax or clear pleural effusion. The heart is not enlarged. There are atherosclerotic calcifications of the aorta. IMPRESSION: 1. Right greater than left basilar predominant interstitial lung disease. Electronically signed by: Flakita Greco MD (09/23/2019 8:04 AM) [facility]
[2019-09-23] MEDS: MICAFUNGIN 100 MG in IV DEXTROSE 5% 100ML 100 ML IV SCH (08:32)
[2019-09-23 08:51] LABS: BASE EXCESS ABG -18 mmol/L (-3-3); HCO3 ABG 9 mmol/L (21-28); PCO2 ABG 25 mmHg (35-46); PO2 ABG 52 mmHg (65-108); SAT O2 ABG 72 % (92-99)
[2019-09-23] MEDS: DUTASTERIDE 0.5 MG CAPSULE PO SCH (09:00)
--- NOTE | 2019-09-23 09:09 | PN ---
DATE: 09/23/2019 SUBJECTIVE: The patient continued to be intubated, mechanically ventilated, continued to be unresponsive. He is back on Levophed and vasopressin. He continued to have high gastric residual. Therefore, discontinued his tube feeding and started on PPN. Apparently, he was seen by the car repair supervisor and the plan is for him to go back on continuous renal replacement therapy. PHYSICAL EXAMINATION: GENERAL: When I saw him, he was pale and extremely jaundiced, but not cyanosed, no thyromegaly. No jugular venous distention. Has generalized anasarca. VITAL SIGNS: The patient continued to be in atrial fibrillation with rapid ventricular response. His heart rate was 128, blood pressure was down to 71/50, temperature was 98.7, respiratory rate was 28 and oxygen saturation was 100% on FiO2 of 40%. HEAD, EYES, EARS, NOSE AND THROAT: Showed he is normocephalic, atraumatic. He has orotracheal and orogastric tube in place. NECK: Supple. HEART: Showed normal first and second heart sounds. No gallop or murmur. CHEST: Clear to auscultation. No crepitation or rhonchi. ABDOMEN: Distended, soft, nontender. NEUROLOGIC: He continued to be encephalopathic. His intake was 1050, output was 360. LABORATORY DATA: This morning, his white cell count went up further to 39,300, hemoglobin 8.1, hematocrit 25.8, MCV 78 and platelet count of 103,000. His chemistry showed a serum sodium 140, potassium 6.2, chloride 100, bicarbonate 14, anion gap of 26, BUN 71, creatinine 3.4, estimated GFR was 17 mL per minute. His glucose was 123, calcium is 7.9. Total bilirubin was 30.7. AST, ALT, alkaline phosphatase were normal. His ammonia was less than 10. His total protein was 4.4, albumin was 2.3. ASSESSMENT: 1. Acute hypoxic respiratory failure secondary to community-acquired pneumonia as well as acute respiratory distress. The patient continued to be intubated, mechanically ventilated, maintaining his oxygen saturations at 98% on FiO2 of 40%. 2. Septic shock requiring vasopressors and IV antibiotic. The patient was off all vasopressors while in-house and unfortunately, he has continued now to be hypotensive. His white cell count is going up. He is now back on Levophed and vasopressin. 3. Acute kidney injury, likely due to acute tubular necrosis secondary to sepsis. He is scheduled to go back on continuous renal replacement therapy. 4. Hepatic injury with extremely elevated bilirubin, although liver enzymes are trending down. His ammonia is only 10. 5. Rheumatoid arthritis. 6. Possible interstitial lung disease and pulmonary fibrosis. 7. Atrial fibrillation with rapid ventricular response for which he was cardioverted initially. He is back in atrial fibrillation with rapid ventricular response. 8. Thrombocytopenia has improved and now unfortunately is trending down. Her platelet count came down from 1934 down to 103,000. 9. High gastric residual, continued to be on issues with this. His tube feeding was discontinued. He is now on TPN. I will switch him to TPN today. 10. Leukocytosis, worsening. 11. What seemed to be ischemic area at the tip of his tongue and also his left big toe. PLAN: To continue mechanical ventilation, wean as tolerated. The patient has been off all sedation; however, he continued to be unresponsive. His MRI showed no evidence of stroke; however, EEG showed paucity in cerebral activity making his overall prognosis poor. The patient is scheduled to go back on continuous renal replacement therapy. I will start him also on TPN. INGRIS FINCH MD DR: JOSIANE/jose JOB#: [id number] / [id number]
[2019-09-23] MEDS: methylPREDNISolone SOD SUCC PF 40 MG/ML VIAL. IV SCH (09:11)
[2019-09-23 09:21] LABS: FIO2 ABG 40
--- NOTE | 2019-09-23 09:25 | NUR ---
Dr. Nova notified of ABG results per Dr. Ramirez and orders received to give 2 amps of bicarb and to start a bicarb drip.
[2019-09-23] MEDS ORDERED: SODIUM BICARB ADULT 8.4% 50 MEQ/50 ML DISP.SYRIN. ONE (09:27)
[2019-09-23] MEDS ORDERED: SODIUM BICARB ADULT 8.4% 50 MEQ/50 ML DISP.SYRIN. IV ONE (09:30)
[2019-09-23] MEDS: DOXYCYCLINE HYCLATE 100 MG in IV DEXTROSE 5% 100ML 100 ML IV SCH (09:54)
[2019-09-23] MEDS ORDERED: SODIUM BICARBONATE VIAL 150 MEQ in IV DEXTROSE 5% 1,000 ML IV SCH (10:00)
--- NOTE | 2019-09-23 10:31 | NUR ---
Dr. Briones notified of rates for pressors and the need for another pressor. Epinephrine was ordered PRN.
[2019-09-23] MEDS: MIDAZOLAM 100mg/100ml NS BAG 100 ML IV PRN (10:37)
--- NOTE | 2019-09-23 11:35 | NUR ---
RN noticed patients QRS widening on tele monitor. Anderson RN and Iris RN assessed pt and doppled femoral pulse. Family was called to bedside and updated on patient condition and code status was talked about as well as CRRT. The benefits and risks were educated on and family is requesting to no code patient and let him go peacefully, "he has suffered long enough." Dr. Griffin was notified of family decision and orders placed.
--- NOTE | 2019-09-23 12:26 | NUR ---
Pt at 1148, family at bedside. Anderson COSTA and Coty RN assessed patient. Doctors notified. Family requesting autopsy. Iris luis RN gave family contact information regarding autopsy. Addendum: 09/23/19 at 1228 by ROSAURA AMOS RN All lines, ET tube, Fisher catheter remain in place.
[2019-09-23] MEDS ORDERED: DIALYSIS IV SCH ×6 (13:00)
[2019-09-23] MEDS ORDERED: CALCIUM CHLORIDE IV SCH ×6 (13:00)
[2019-09-23] MEDS ORDERED: DEXTROSE 70% IV SCH ×16 (22:00)
[2019-09-23] MEDS ORDERED: [UNRECOGNIZED DRUG - OTHER] IV SCH ×8 (22:00)
[2019-09-23] MEDS ORDERED: TOTAL PARENTERAL NUTRITION IV SCH ×16 (22:00)
[2019-09-23] MEDS ORDERED: AMINO ACID IV SCH ×16 (22:00)
[2019-09-23] MEDS ORDERED: [UNRECOGNIZED DRUG - OTHER] IV SCH ×8 (22:00)
== END 2019-09-23 11:48 | disposition expired | DRG 870 ==
LOC: 1 WEST ICU 05:00
PROVIDERS: ADMIT Internal Medicine; ATTEND Internal Medicine
PROC: 5A09457 Assistance with Respiratory Ventilation, 24-96 Consecutive Hours, Continuous Positive Airway Pressure (ICD-10-PCS; 2019-09-10)
PROC: 5A1955Z Respiratory Ventilation, Greater than 96 Consecutive Hours (ICD-10-PCS; principal; 2019-09-11)
PROC: 0BH17EZ Insertion of Endotracheal Airway into Trachea, Via Natural or Artificial Opening (ICD-10-PCS; 2019-09-11)
PROC: 30233K1 Transfusion of Nonautologous Frozen Plasma into Peripheral Vein, Percutaneous Approach (ICD-10-PCS; 2019-09-12)
PROC: 30233N1 Transfusion of Nonautologous Red Blood Cells into Peripheral Vein, Percutaneous Approach (ICD-10-PCS; 2019-09-12)
PROC: 02HV33Z Insertion of Infusion Device into Superior Vena Cava, Percutaneous Approach (ICD-10-PCS; 2019-09-12)
PROC: B548ZZA Ultrasonography of Superior Vena Cava, Guidance (ICD-10-PCS; 2019-09-12)
PROC: 5A1D70Z Performance of Urinary Filtration, Intermittent, Less than 6 Hours Per Day (ICD-10-PCS; 2019-09-21)
PROC: 5A1D70Z Performance of Urinary Filtration, Intermittent, Less than 6 Hours Per Day (ICD-10-PCS; 2019-09-22)
DX: A41.9 Sepsis, unspecified organism (principal); J96.01 Acute respiratory failure with hypoxia; J18.9 Pneumonia, unspecified organism; G92 Toxic encephalopathy; I50.31 Acute diastolic (congestive) heart failure; K72.00 Acute and subacute hepatic failure without coma; R65.21 Severe sepsis with septic shock; N17.0 Acute kidney failure with tubular necrosis; D65 Disseminated intravascular coagulation [defibrination syndrome]; E87.4 Mixed disorder of acid-base balance; K80.21 Calculus of gallbladder without cholecystitis with obstruction; B34.9 Viral infection, unspecified; D64.9 Anemia, unspecified; E87.5 Hyperkalemia; I11.0 Hypertensive heart disease with heart failure; I48.91 Unspecified atrial fibrillation; M06.9 Rheumatoid arthritis, unspecified; M10.9 Gout, unspecified; M19.90 Unspecified osteoarthritis, unspecified site; N40.0 Benign prostatic hyperplasia without lower urinary tract symptoms; Z79.01 Long term (current) use of anticoagulants; Z82.5 Family history of asthma and other chronic lower respiratory diseases; Z86.2 Personal history of diseases of the blood and blood-forming organs and certain disorders involving the immune mechanism; Z98.41 Cataract extraction status, right eye; Z98.42 Cataract extraction status, left eye; Z87.891 Personal history of nicotine dependence; Z90.49 Acquired absence of other specified parts of digestive tract
CPT/HCPCS: 36415; 36556; 36600; 70551; 71045; 74018; 76700; 76770; 76937; 80048; 80051; 80053; 81001; 82140; 82248; 82607; 82728; 82805; 82962; 83010; 83605; 83735; 84075; 84100; 84443; 85007; 85025; 85027; 85049; 85379; 85384; 85610; 85730; 86644; 86645; 86695; 86850; 86900; 86901; 86920; 86927; 87040; 87070; 87103; 87205; 87340; 87449; 87633; 87798; 87804; 87880; 93306; 93308; 94003; 94640; 94660; 94760; 95816; C1892; C9113; J0282; J0696; J0878; J1940; J1956; J2060; J2185; J2248; J2250; J2270; J2543; J2765; J2920; J3010; J3370; J3430; J3480; J3490; J7030; J7040; J7050; J7613; P9016; P9017; P9046; Q0144; G0378